=== PATIENT | male | born 1945 | race Caucasian/White ===

== ENCOUNTER → 2018-01-02 07:20 | Outpatient (BNVA) | payer MEDICARE, BC, SELFPAY | PROVIDERS: Referring Provider Internal Medicine; Visit Provider Psychiatry & Neurology Neurology | DX: G56.01 Carpal tunnel syndrome, right upper limb (principal); R40.4 Transient alteration of awareness; G40.909 Epilepsy, unspecified, not intractable, without status epilepticus; R53.83 Other fatigue | CPT/HCPCS: 99205 ==

== ENCOUNTER → 2018-08-14 10:19 | Outpatient (BNVA) | payer MEDICARE, BC, SELFPAY | PROVIDERS: Referring Provider Internal Medicine; Visit Provider Psychiatry & Neurology Neurology | DX: G40.909 Epilepsy, unspecified, not intractable, without status epilepticus (principal); R40.4 Transient alteration of awareness; I10 Essential (primary) hypertension | CPT/HCPCS: 99214 ==

== ENCOUNTER → 2018-09-22 14:10 | Outpatient (BNVA) | payer MEDICARE, BC, SELFPAY | PROVIDERS: Visit Provider Psychiatry & Neurology Neurology | DX: R40.4 Transient alteration of awareness (principal); G40.909 Epilepsy, unspecified, not intractable, without status epilepticus; I10 Essential (primary) hypertension | CPT/HCPCS: 99213 ==

== ENCOUNTER 2018-10-10 13:33 | Outpatient (REF) | payer MEDICARE, BC, SELFPAY ==
[2018-10-10 19:48] LABS: HCT 43.9 % (40.0-50.0); Mean Corp. HGB Concentration 34.2 g/dL (32.0-36.0); Mean Corpuscular Hemoglobin 29.5 pg (27.0-33.0); Mean Corpuscular Volume 86.4 fL (80-95); Mean Platelet Volume 9.9 fL (8.0-11.0); Platelet Count 162 x1000/uL (130-400); RBC 5.08 m/cumm (4.50-6.00); RBC Distribution Width 13.3 % (11.8-14.1); White Blood Cell Count 6.85 k/cumm (4.4-10.8)
[2018-10-10 20:30] LABS: Anion Gap 10.5 mmol/L (3-11); BUN 21 mg/dL (7-18); CO2 24.5 mmol/L (21.0-32.0); CREATININE 1.32 mg/dL (0.70-1.30); Calcium 9.2 mg/dL (8.5-10.1); Chloride 104 mmol/L (98-107); Estimated GFR 53.17 (mL/min/1.73m2); Glucose 107 mg/dL (70-100); Potassium 4.6 mmol/L (3.5-5.1); Sodium 139 mmol/L (136-145)
[2018-10-13 12:55] LABS: Lyme Ab w Rflx to Lyme Confirm Negative
== END 2018-10-10 13:53 ==
LOC: NCHCN 13:33
PROVIDERS: PCP Internal Medicine; Visit Provider Internal Medicine
DX: R40.4 Transient alteration of awareness (principal); I95.1 Orthostatic hypotension
CPT/HCPCS: 80048; 85027; 84443; 86618

== ENCOUNTER → 2018-11-25 11:05 | Outpatient (BNVA) | payer MEDICARE, BC, SELFPAY | PROVIDERS: PCP Internal Medicine; Visit Provider Psychiatry & Neurology Neurology | DX: G40.909 Epilepsy, unspecified, not intractable, without status epilepticus (principal); R40.4 Transient alteration of awareness; I10 Essential (primary) hypertension | CPT/HCPCS: 99213 ==

== ENCOUNTER 2019-01-29 18:38 | Outpatient (REF) | payer MEDICARE, BC, SELFPAY ==
[2019-01-29 19:13] LABS: Albumin 4.2 g/dL (3.4-5.0); Anion Gap 9.3 mmol/L (3-11); BUN 21 mg/dL (7-18); CO2 28.7 mmol/L (21.0-32.0); COMMENT (LAB VIEW ONLY) 119.86 mg/dL; CREATININE 1.16 mg/dL (0.70-1.30); Calcium 9.8 mg/dL (8.5-10.1); Chloride 106 mmol/L (98-107); Glucose 75 mg/dL (70-100); Microalb ug/mg Crea 10.1 ug/mg Cr; PHOSPHORUS 3.9 mg/dL (2.6-4.7); Potassium 4.7 mmol/L (3.5-5.1); Sodium 144 mmol/L (136-145)
== END 2019-01-29 18:58 ==
LOC: NCHCN 18:38
PROVIDERS: PCP Internal Medicine; Visit Provider Internal Medicine
DX: R06.09 Other forms of dyspnea (principal); I95.1 Orthostatic hypotension
CPT/HCPCS: 80069; 82043; 82570

== ENCOUNTER 2020-01-25 19:07 | Outpatient (REF) | payer MEDICARE, BC, SELFPAY ==
[2020-01-25 19:43] LABS: HCT 45.8 % (40.0-50.0); HGB 15.3 g/dL (13.5-17.5); MCH 29.8 pg (27.0-33.0); MCHC 33.4 % (32.0-36.0); MCV 89.1 fL (80-95); MPV 9.9 fL (8.0-11.0); Platelet Count 230 10^3/uL (130-400); RBC 5.14 10^6/uL (4.36-5.78); RDW 12.2 % (11.8-14.1); RDW-SD 39.7 fL; WBC 6.63 10^3/uL (4.4-10.8)
[2020-01-25 20:35] LABS: Anion Gap 8.8 mmol/L (3-11); BUN 18 mg/dL (7-18); CO2 30.2 mmol/L (21.0-32.0); CREATININE 1.16 mg/dL (0.70-1.30); Chloride 105 mmol/L (98-107); Glucose 99 mg/dL (74-106); Potassium 4.2 mmol/L (3.5-5.1); Sodium 144 mmol/L (136-145); TSH 1.17 uIU/mL (0.36-3.74); Vitamin B12 324 pg/mL (193-986)
== END 2020-01-25 19:27 ==
LOC: NCHCN 19:07
PROVIDERS: PCP Internal Medicine; Visit Provider Internal Medicine
DX: R53.83 Other fatigue (principal); R26.89 Other abnormalities of gait and mobility
CPT/HCPCS: 80048; 85027; 82607; 84443

== ENCOUNTER 2020-09-26 17:17 | Outpatient (REF) | payer MEDICARE, BC, SELFPAY ==
[2020-09-26 20:29] LABS: BUN 20 mg/dL (7-18); Chloride 106 mmol/L (98-107); Sodium 143 mmol/L (136-145)
[2020-09-26 20:33] LABS: ALT 27 U/L (16-63); AST 16 U/L (15-37); Albumin 4.4 g/dL (3.4-5.0); Alkaline Phosphatase 73 U/L (46-116); Anion Gap 9.8 mmol/L (3-11); Bilirubin, Total 0.8 mg/dL (0.2-1.0); CO2 27.2 mmol/L (21.0-32.0); CREATININE 1.1 mg/dL (0.70-1.30); Calcium 9.5 mg/dL (8.5-10.1); Glucose 93 mg/dL (74-106); PHENOBARBITAL 6.3 ug/mL (15.0-40.0); Potassium 4.7 mmol/L (3.5-5.1); Total Protein 7.6 g/dL (6.4-8.2)
== END 2020-09-26 17:18 | disposition home or self-care (01) ==
LOC: NCHCN 17:17
PROVIDERS: PCP Internal Medicine; Visit Provider Internal Medicine
DX: R51.9 Headache, unspecified (principal); I95.1 Orthostatic hypotension; Z51.81 Encounter for therapeutic drug level monitoring; Z79.899 Other long term (current) drug therapy
CPT/HCPCS: 80053; 80184

== ENCOUNTER 2021-04-10 11:17 | Outpatient (REF) | payer MEDICARE, BC, SELFPAY ==
[2021-04-10 19:24] LABS: HCT 44.5 % (40.0-50.0); HGB 14.9 g/dL (13.5-17.5); MCH 29.7 pg (27.0-33.0); MCHC 33.5 % (32.0-36.0); MCV 88.8 fL (80-95); MPV 9.6 fL (8.0-11.0); Platelet Count 219 10^3/uL (130-400); RBC 5.01 10^6/uL (4.36-5.78); RDW 12.6 % (11.8-14.1); RDW-SD 41.1 fL
[2021-04-10 20:04] LABS: Anion Gap 4.6 mmol/L (3-11); BUN 18 mg/dL (7-18); C-Reactive Protein 0.08 mg/dL (0.0-0.3); CO2 31.4 mmol/L (21.0-32.0); CREATININE 1.1 mg/dL (0.70-1.30); Calcium 9.1 mg/dL (8.5-10.1); Chloride 103 mmol/L (98-107); Glucose 89 mg/dL (74-106); Potassium 4.3 mmol/L (3.5-5.1); Sodium 139 mmol/L (136-145); TSH 1.38 uIU/mL (0.36-3.74)
== END 2021-04-10 11:18 | disposition home or self-care (01) ==
LOC: NCHCN 11:17
PROVIDERS: PCP Internal Medicine; Visit Provider Internal Medicine
DX: E78.5 Hyperlipidemia, unspecified (principal); G20 Parkinson's disease; M19.011 Primary osteoarthritis, right shoulder
CPT/HCPCS: 80048; 85027; 83655; 84443; 86140

== ENCOUNTER 2021-10-11 16:08 | Outpatient (REF) | payer MEDICARE, BC, SELFPAY ==
[2021-10-11 21:11] LABS: Iron 101 ug/dL (65-175); Total Iron Binding Capacity 323 ug/dL (250-450); Transferrin Sat 31 % (20-55)
[2021-10-11 21:13] LABS: Ferritin 113 ng/mL (26-388)
== END 2021-10-11 16:09 | disposition home or self-care (01) ==
LOC: NCHCN 16:08
PROVIDERS: PCP Internal Medicine; Visit Provider Internal Medicine
DX: M48.061 Spinal stenosis, lumbar region without neurogenic claudication (principal); R51.9 Headache, unspecified; G20 Parkinson's disease; G25.81 Restless legs syndrome
CPT/HCPCS: 82728; 83540; 83550

== ENCOUNTER 2023-03-29 16:13 | Outpatient (REF) | payer MEDICARE, BC, SELFPAY ==
--- OUTSIDE RECORDS SUMMARY | 2023-03-29 16:15 | XMS_ITS | Continuity of Care Document ---
Author Name Unknown Organization [facility] Address [address] [place] [address] Care Team Providers Care Clay Caster Name Role Phone Primeau IPHCBernardo Primary Care Physician Encounter [facility] [id number] Date(s): 07/29/22 - 07/29/22 [facility] [address] [place] [address] Discharge Disposition: Home or Self Care Attending Physician: Erin Mckeon NP Admitting Physician: Erin Mckeon NP Referring Physician: Erin Mckeon BOX TOE MAKER Allergies, Adverse Reactions, Alerts No Known Medication Allergies Substance Reaction Severity Status Seasonal 1 Unknown Active 1hay fever Assessment and Plan Future Appointments Future Scheduled Tests Radiology* MRI Shoulder w/o Contrast Right 07/19/22 Immunizations Given and Recorded Vaccine Date Status Refusal Reason SARS-COV-2 (COVID-19) vaccine, unspecifi 11/07/21 Recorded SARS-COV-2 (COVID-19) vaccine, unspecifi 06/20/20 Recorded SARS-COV-2 (COVID-19) vaccine, unspecifi 05/23/20 Recorded Medications amoxicillin 500 mg oral capsule 2,000 mg = 4 cap, Oral, As Directed, Take one hour before dental appointment Start Date: 12/01/21 Status: Ordered Aspirin Low Dose 81 mg oral delayed release tablet 0 Refill(s) Start Date: 04/03/22 Status: Ordered carbidopa-levodopa 25 mg-100 mg oral tablet 0 Refill(s) Start Date: 07/17/22 Status: Ordered cyanocobalamin 0 Refill(s) Start Date: 07/17/22 Status: Ordered Fish Oil oral capsule 1 cap, Oral, Daily, # 100 cap, 0 Refill(s) Start Date: 07/17/22 Status: Ordered fludrocortisone 0.1 mg oral tablet 30 EA, TAKE 1 TABLET BY MOUTH ONCE DAILY MAY REQUIRE FURTHER TITRATION, 0 Refill(s) Start Date: 04/03/22 Status: Ordered gabapentin 100 mg oral capsule 0 Refill(s) Start Date: 04/03/22 Status: Ordered ketorolac 10 mg oral tablet See Instructions, PRN pain, TAKE 1 TABLET BY MOUTH DAILY (DO NOT TAKE MORE THAN 2 TABLETS PER WEEK FOR HEADACHE PAIN> 5/10) Start Date: 12/01/21 Status: Ordered LORazepam 1 mg oral tablet Start Date: 12/01/21 Status: Ordered Mag-G 500 mg oral tablet 2 tab, Oral, Daily, # 180 tab, 6 Refill(s), Pharmacy: [id number] Start Date: 02/08/22 Status: Ordered magnesium gluconate 500 mg oral tablet 0 Refill(s) Start Date: 04/03/22 Status: Ordered Myrbetriq 50 mg oral tablet, extended release 90 EA, TAKE 1 TABLET BY MOUTH ONCE DAILY, 0 Refill(s) Start Date: 04/03/22 Status: Ordered omeprazole 20 mg oral delayed release capsule 20 mg = 1 cap, Oral, Daily, PRN other (see comment), as needed Start Date: 12/01/21 Status: Ordered PreviDent 5000 Booster 1.1% topical paste Topical, every night at bedtime, [place] teeth, swish for 30 seconds, then spit out Start Date: 12/01/21 Status: Ordered topiramate 25 mg oral tablet 60 EA, TAKE 1 TABLET BY MOUTH TWICE DAILY, 0 Refill(s) Start Date: 04/03/22 Status: Ordered Tylenol PRN other (see comment), as needed Start Date: 12/01/21 Status: Ordered Vitamin B-12 500 mcg oral tablet 0 Refill(s) Start Date: 07/17/22 Status: Ordered Problem List Condition Confirmation Course Effective Dates Status H ealth Status Informant Prophylactic antibiotic Confirmed Active Olecranon bursitis, left elbow Confirmed Active Carpal tunnel syndrome Confirmed Active Cervical spondylosis 1 Confirmed Active Chest pain Confirmed Active Depressed Confirmed Active Disturbance in speech Confirmed Active Dyspnea on exertion Confirmed Active Gastroesophageal reflux disease Confirmed Active Generalized epilepsy Confirmed Active History of BPH Confirmed Active Headache Confirmed Active Hemorrhoids Confirmed Active History of hypotension Confirmed Active History of right hip replacement Confirmed Active Hyperlipidemia Confirmed Active Hypersomnia Confirmed Active Hypertension Confirmed Active Lesion of ulnar nerve Confirmed Active Carcinoma of skin Confirmed Active Obstructive sleep apnea syndrome Confirmed Active Orthostatic hypotension Confirmed Active Osteoarthritis Confirmed Active Palpitations Confirmed Active Panic disorder Confirmed Active Parkinson's disease Confirmed Active PLMD (periodic limb movement disorder) Confirmed Active Right shoulder pain Confirmed Active Skin tag Confirmed Active Spinal stenosis, lumbar Confirmed Active Giant cell arteritis Confirmed Active 1Cervical spondylosis with radiculopathy Procedures Procedure Date Related Diagnosis Body Site Status Temporal artery biopsy 1 04/05/22 Completed Hip replacement 2 04/14/09 Complet ed Orthopedic surgery 3 Comp leted Tonsillectomy Completed 1Temporal Artery Biopsy, Bilateral 2Right 3right IP joint fusion Social History Social History Type Response Tobacco Never tobacco user T obacco Use:. Sex Male Patient Care team information Care Team Personnel Name: Bernardo Brewer MD Position: No Access Member Role: Primary Care Physician Address: Address: [id number] [place] [address] Care Team Related Persons Name: LINDA VALENCIA Address: Home
--- OUTSIDE RECORDS SUMMARY | 2023-03-29 16:16 | XMS_ITS | Continuity of Care Document ---
Author Name Unknown Organization [facility] Address [address] [place] [address] Care Team Providers Care Tunnel Heading Supervisor Name Role Phone Primeau IPHC, Bernardo Le Primary Care Physician Encounter [facility] Date(s): 08/29/22 - 08/29/22 [facility] [address] [place] [address] Encounter Diagnosis PLMD (periodic limb movement disorder)(Discharge Diagnosis) - 08/29/22 Obstructive sleep apnea syndrome(Discharge Diagnosis) - 08/29/22 Discharge Disposition: Home or Self Care Attending Physician: Erin Mckeon TIE LOADER Allergies, Adverse Reactions, Alerts No Known Medication Allergies Substance Reaction Severity Status Seasonal 1 Unknown Active 1hay fever Assessment and Plan Future Appointments Future Scheduled Tests Radiology* MRI Shoulder w/o Contrast Right 07/19/22 Functional Status 08/29/22 Other exposure to Infectious Disease Non e Immunizations Given and Recorded Vaccine Date Status [...] 0 Refill(s) Start Date: 04/03/22 Status: Ordered cyanocobalamin 0 Refill(s) Start Date: [...] 0 Refill(s) Start Date: 04/03/22 Status: Ordered Gemtesa 75 mg oral tablet 75 mg = 1 tab, Oral, Daily, # 28 tab, 0 Refill(s), samples given to patient (Rx) Start Date: 08/29/22 Stop Date: 09/26/22 Status: Ordered ketorolac 10 mg oral tablet See Instructions, PRN pain, TAKE 1 TABLET BY MOUTH DAILY (DO NOT TAKE MORE THAN 2 TABLETS PER WEEK FOR HEADACHE PAIN> 5/10) Start Date: 12/01/21 Status: Ordered LORazepam 1 mg oral tablet Start Date: 12/01/21 Status: Ordered Mag-G 500 mg oral tablet 2 tab, Oral, Daily, # 180 tab, 6 Refill(s), Pharmacy: [id number] Start Date: 02/08/22 Status: Ordered magnesium gluconate 500 mg oral tablet 0 Refill(s) Start Date: 04/03/22 Status: Ordered melatonin 3 mg oral tablet 3 mg = 1 tab, Oral, every day at bedtime, # 60 tab, 0 Refill(s), Pharmacy: [id number], 180, cm, 03/27/22 11:48:00 EST, Height/Length Dosing, 81, kg, 03/27/22 11:48:00 EST, Weight Dosing Start Date: 08/29/22 Status: Ordered Myrbetriq 50 mg oral tablet, extended release 90 EA, TAKE 1 TABLET BY MOUTH ONCE DAILY, 0 Refill(s) Start Date: 04/03/22 Status: Ordered omeprazole 20 mg oral delayed release capsule 20 mg = 1 cap, Oral, Daily, PRN other (see comment), as needed Start Date: 12/01/21 Status: Ordered PreviDent 5000 Booster 1.1% topical paste Topical, every night at bedtime, [place] teeth, swish for 30 seconds, then spit out Start Date: 12/01/21 Status: Ordered selegiline 5 mg oral tablet 5 mg = 1 tab, Oral, BID, # 180 tab, 0 Refill(s) Start Date: 08/29/22 Status: Ordered topiramate 25 mg oral tablet [...] 1 04/05/22 Completed Hip replacement 2 04/14/09 [facility] ed Orthopedic surgery 3 Comp leted Tonsillectomy Completed 1Temporal Artery Biopsy, Bilateral 2Right 3right IP joint fusion Vital Signs Most recent to oldest [Reference Range]: 1 Peripheral Pulse Rate [60-100 bpm] 75 bp m (08/29/22 8:01 AM) Blood Pressure [90-140/60-90 mmHg] 161/8 8mmHg *HI* (08/29/22 8:01 AM) Weight 79.38 kg (08/29/22 8:01 AM) Weight Measured (lbs) 175.003 lb (08/29/22 8:01 AM) Height 175 cm (08/29/22 8:01 AM) Height/Length Measured (inches) 68.9 inc h (08/29/22 8:01 AM) BSA Measured 1.96 m2 (08/29/22 8:01 AM) Body Mass Index 25.92 kg/m2 (08/29/22 8:01 AM) Social History Social History Type Response Tobacco Never tobacco user T obacco Use:. Sex Male Progress note * Benny Collado: PERFORM Event Display: Progress Note - Physician Authored Date: [id number] Patient Care team information Care Team Personnel Name: Bernardo Brewer MD Position: No Access Member Role: Primary Care Physician Address: Address: [address] Care Team Related Persons Name: LINDA VALENCIA Address: Home
--- OUTSIDE RECORDS SUMMARY | 2023-03-29 16:16 | XMS_ITS | Continuity of Care Document ---
Author Name Unknown Organization [facility] or Sleep Disorders Address [address] [place] [address] Care Team Providers Care [employer] Practitioner Name Role Phone [facility], Bernardo Le Primary Care Physician [facility] Date[facility] 10/04/22 - 10/04/22 [facility] [address] [place] [address] Encounter Diagnosis Obstructive sleep apnea syndrome(Discharge Diagnosis) - 10/04/22 Discharge Disposition: Home or Self Care Attending Physician: Erin Mckeon [employer] Allergies, Adverse Reactions, Alerts No Known Medication Allergies Substance Reaction Severity Status Seasonal 1 Unknown Active 1hay fever Assessment and Plan Future Appointments Future Scheduled Tests Radiology* MRI Shoulder w/o Contrast Right 07/19/22 Functional Status 10/04/22 Other exposure to Infectious Disease Non e [...] Date: 08/29/22 Stop Date: 09/26/22 Status: Ordered Gemtesa 75 mg oral tablet 75 mg = 1 tab, Oral, Daily, # 90 tab, 3 Refill(s), Pharmacy: [id number], 180, cm, 03/27/22 11:48:00 EST, Height/Length Dosing, 81, kg, 03/27/22 11:48:00 EST, Weight Dosing Start Date: 09/19/22 Stop Date: 09/14/23 Status: Ordered ketorolac 10 mg oral tablet See Instructions, PRN pain, TAKE 1 TABLET BY MOUTH DAILY (DO NOT TAKE MORE THAN 2 TABLETS PER WEEK FOR HEADACHE PAIN> 5/10) Start Date: 12/01/21 Status: Ordered LORazepam 1 mg oral tablet Start Date: 12/01/21 Status: Ordered Mag-G 500 mg oral tablet 2 tab, Oral, Daily, # 180 tab, 6 Refill(s), Pharmacy: [id number] Start Date: 02/08/22 Status: Ordered magnesium gluconate 500 mg oral tablet 0 Refill(s) Start Date: 04/03/22 Status: Ordered melatonin 3 mg oral tablet 3 mg = 1 tab, Oral, every day at bedtime, # 60 tab, 0 Refill(s), Pharmacy: [id number], 180, cm, 03/27/22 11:48:00 EST, [...] topical paste Topical, every night at bedtime, [place] teeth, swish for 30 seconds, then spit [...] 1 04/05/22 Completed Hip replacement 2 04/14/09 [facility] ed Orthopedic surgery 3 Comp leted Tonsillectomy Completed 1Temporal Artery Biopsy, Bilateral 2Right 3right IP joint fusion Vital Signs Most recent to oldest [Reference Range]: 1 Peripheral Pulse Rate [60-100 bpm] 97 bp m (10/04/22 8:57 AM) Blood Pressure [90-140/60-90 mmHg] 152/8 7mmHg *HI* (10/04/22 8:57 AM) Weight 78.93 kg (10/04/22 8:57 AM) Weight Measured (lbs) 174.011 lb (6/22/23 8:57 AM) Height 180 cm (10/04/22 8:57 AM) Height/Length Measured (inches) 70.87 in (10/04/22 8:57 AM) BSA Measured 1.99 m2 (10/04/22 8:57 AM) Body Mass Index 24.36 kg/m2 (10/04/22 8:57 AM) Social History Social History Type Response Tobacco Former tobacco user Tobacco Use:. Sex Male Physician Outpatient Note * Erin Mckeon [employer]: PERFORM Event Display: Office Clinic Note Physician Authored Date: [id number] JIM GONZALEZ :1945 Age:76 years Sex:Male Visit Date:10/04/2022 Primary Care Physician: Simone PANCHAL, Bernardo Le MD Chief Complaint cpap compliance History of Present Illness 76 years??male??here for compliance ?? TODAY: He thinks his mask cushion may be over a month old. Maybe a few months overdue for replacement. He does not leave his machine running when he gets up to go void. Sometimes his mask does move around his face but rarely. ?? He started taking 3mg melatonin at night. He is getting up less at night with the melatonin + starting a new med recently for his overactive bladder. ?? He will be seeing his neurologist again in November. He feels he has had more brain fog, tremors, and fatigue with restarting his Levidopa rx. Review of Systems A 10-point REVIEW OF SYSTEM was obtained and reviewed, includes CONSTITUTIONAL, EYES, NOSE, THROAT,RESPIRATORY, HEART, GASTROINTESTINAL, UROLOGIC, MUSCULOSKELETAL, PSYCHIATRY, SKIN systems. Pertinent symptoms are discussed in history, otherwise negative. Physical Exam Vitals & Measurements HR:??97??(Peripheral)?? BP:??152/87?? SpO2:??95%?? HT:??180??cm?? WT:??78.93??kg?? BMI:??24.36?? BSA:??1.99?? General:??well appearing, appearing stated age, no acute distress,??normal??build HEENT: atraumatic skull, anicteric RESPIRATORY: quiet respiration, able to speak in full sentences without dyspnea, no accessory muscle use SKIN: no facial skin rash, no facial skin lesions PSYCHIATRIC: well groomed, fluent speech, good insight, linear thought process, good eye contact,balanced??affect NEUROLOGIC: alert, oriented, symmetric facial expression Clinic Assessment/Plan 1.??Obstructive sleep apnea syndrome??G47.33 Jim Gonzalez is a pleasant 76 year old male here for CPAP compliance. Download data reviewed and discussed with the patient. He has good compliance with an excellent reduction in AHI, tx AHI 1.4/hr on fixed CPAP 5cm H20. Will cont current pressures. ?? As previously recommended, he has started taking 3mg of melatonin at bedtime. He is sleeping more soundly through the night and has fewer nocturnal awakenings. In addition to the melatonin, he also started taking a medication for his overactive bladder, so his improved sleep is likely due to the combination of medications. He endorses feeling his sleep quality has improved, no longer feeling crummy in the mornings. ?? Discussed replacing his PAP supplies regularly, as he thinks his current mask cushion may be a few months old and his data reveals he does have a moderate air leak. Discussed the importance of propermask seal for treatment of his KARLI and overall mask hygiene. Will ensure all future supplies come from [facility]. ?? Plan for close interval follow up in 3 months. I provided greater than??30??minutes in the care of this patient, more than half the time was spentin [id number] counseling. ?with comorbidities of cervical spondylosis with radiculopathy, GERD, nocturnal generalized epilepsy (only ever occurred in past during his sleep, never when awake, under good control with Tegretol, no seizures for > 30 years), CAD. ? Clinical Data Reviewed: [place] Sleepiness Scale: 10/06 ?? Machine Download Data:??Resmed AirSense 10 Auto CPAP?? PAP Settings: ??CPAP??5?? CmH2O Date Range:?09/28/22 - 10/03/22 (trouble obtaining 30 days data) Days with Usage >=4 hours: ??67% Avg Usage per Day Used: ??5hr 17min Leak:??Moderate? Avg Treatment ??AHI: ??1.4/hr ?? Sleep Clinical Timeline:?? Seen on 12/23/17 for sleep consultation at kind request of Dr Antoine Ram, noted for loud snoring, nocturia 2 to 3 per night, crowded upper airway on exam, morning headaches, and excessive daytime sleepiness with ESS 13/24 despite sleeping 8.5 hours per night. Also noted for muscle tightening/cramping in upper arm and constipation. ?? Diagnostic Polysomnogram on 01/20/18 (wt 196 lbs / bmi 28) showed Overall Mild Obstructive Sleep Apnea, that is extremely severe during brief period of supine position sleep observed. There is evidence of Increased Upper Airway Resistance flow pattern in between scored events. Overall AHI: 7.4/hr; Overall RDI: 10.8/hr; REM AHI: 5.2/hr; Supine AHI: 67/hr; Right Lateral AHI:3 /hr; Left Lateral AHI: 2/hr; Prone AHI: N/A/hr. Mean SpO2: 93% and Marcos SpO2: 90% on Room Air; 0 Consecutive Minutes spentwith SpO2 less than 88% on Room Air. Severity may be underestimated due to minimal supine position sleep seen. Extremely Severe Periodic Limb Movement Disorder, without significant arousals. PLM 71/hr PLMa 0/hr. arousal index 10/hr. ?? Visit on 03/03/18, we went over oral appliance, cpap and positional therapy as treatment options and patient elected to go wtih simplest option first (latter). He also did not perceive any leg symptoms and prefered not to be treated. ?? Repeat Diagnostic Polysomnogram wearing positional therapy device on 02/25/20 (wt 188 lbs/bmi 27) showed: 1. Patient used positional therapy device to avoid supine sleep successfully throughout the night, showing residual borderline Mild Obstructive Sleep Apnea associated with sleep fragmentation. 2. Overall AHI: 0.7/hr; Overall RDI: 5.2/hr; REM AHI: 0.0/hr; Supine AHI: N/A/hr; Right Lateral AHI:0 /hr; Left Lateral AHI: 2/hr; Prone AHI: N/A/hr. 3. Mean SpO2: 92% and Marcos SpO2: 89% on Room Air; 0.0 minutes spent with SpO2 less than or equal to 88% on Room Air. 4. Severe Periodic Limb Movement Disorder with significant arousals. PLM index 44.7/hr. PLM arousalindex 6.8/hr. Patient???s bilateral leg EMGs showed frequent muscle fasciculation. 5. Unable to adequately evaluate for REM Behavioral Disorder, due to minimal REM sleep time of 9 minutes. However, frequent leg movements were noted even during short period of REM sleep, which also led to arousals. Chin EMG tone was difficult to evaluate due to this. The persistence of PLMs into REM sleep suggest lack of appropriate muscle atonia. ? 07/20/2021. f/u auto cpap 5-9 cm H20, nasal pillows. ropinirole 0.5-1 mg 2 tabs nightly for RLS. f/u with neurology for further eval Parkinsons ?? 12/06/2021.?? auto CPAP 5 to 9 cm, ResMed machine via [facility], was using nasal pillows. he is not having any issues with his mask or pap pressures. He continues to have hypersomnia with only slight improvement with CPAP. He has a hx of seizures which he reports have been under good control since the . He was diagnosed with possible Parkinson's disease 1-1/2 years ago and was started on carbidopa/levodopa. He did meet with neurology in [place] and has a follow up MRI schedule next month.?? His ropinirole was discontinued since our last office visit in July by his PCP??and he was started on gabapentin??and is now taking gabapentin 300 mg twice daily.? 04/18/2022. Cont auto CPAP 5 to 9 cm, increase compliance and try other mask fits. Cont to c/o hypersomnia. D/C'ed carbidopa/levodopa and will discuss with PCP other causes of sleepiness in May. Cont Gabapentin, vit D, and magnesium; RLS well controlled. ?07/29/2022:??CPAP Titration Study. Wt.: 171.96 lbs. ??BMI = 24.67 kg/m2.?IMPRESSION: 1.??CPAP titration with RBD montage for supine-related mild Obstructive Sleep Apnea was marked by severe fragmentation with elevated arousal index and reduced sleep efficiency 56% with prolonged WASO.?? 2.??Optimal pressure appeared to be CPAP 5 cmH2O which resolved significant apneas, hypopneas, snoring and desaturations including during supine REM sleep. Adequate oxygenation was maintained on tested pressures. Further titration from CPAP 5 to 7cmH2O did not seem to have provided additional benefit and may have led to the development of treatment emergent central apneas. ?? 3.??Severely elevated Periodic Limb Movements Index including excessive transient muscle activity in REM suggesting REM sleep without atonia similar to observations noted in previous PSGs. ?? 4.??Patient used a Resmed Airfit P10 nasal pillow with large inserts.?RECOMMENDATIONS: 1.??Patient should be continued on CPAP therapy with mask of choice, heated humidification and ramp. The pressure should be set at 5 cmH2O. Interval follow up with (download/nocturnal oximetry) to confirm adequacy of this setting is recommended. 2.??Mask refit session via patient???s DME Company.? 08/29/2022: Adjusted pressures remotely to TMS for fixed CPAP 5cm H20. Encourage pt to increase complaince. ?? 10/04/2022: Cont current pressure, working well to treat his KARLI. replace mask cushion d/t significant air leak, prefers supplies thru [facility]. ?? Current Mask: ?? Resmed Airfit P10 nasal pillow with large inserts.? DME: [facility] ? Today's Assessment and Plan: See above ?? Follow up: 3 months or sooner if needed. ?? Remote Scribed by Carl Ryder Problem List/Past Medical History Ongoing Carcinoma of skin Carpal tunnel syndrome Cervical spondylosis Chest pain Depressed Disturbance in speech Dyspnea on exertion Gastroesophageal reflux disease Generalized epilepsy Giant cell arteritis Headache Hemorrhoids History of BPH History of hypotension History of right hip replacement Hyperlipidemia Hypersomnia Hypertension Lesion of ulnar nerve Obstructive sleep apnea syndrome Olecranon bursitis, left elbow Orthostatic hypotension Osteoarthritis Palpitations Panic disorder Parkinson's disease PLMD (periodic limb movement disorder) Prophylactic antibiotic Right shoulder pain Skin tag Spinal stenosis, lumbar Historical Carpal tunnel syndrome of right wrist Procedure/Surgical History ???Temporal artery biopsy (04/06/2022)???Hip replacement (04/15/2009)???Orthopedic surgery???Tonsillectomy Medications What How Much When Why Instructions Unchanged acetaminophen (Tylenol) As needed for other (see comment) as needed Contact prescribing physician if questions or concerns ?? Unchanged amoxicillin (amoxicillin 500 mg oral capsule) 4 Capsules Oral (given by mouth) As Directed Take one hour before dental appointment Contact prescribing physician if questions or concerns ?? Unchanged aspirin (Aspirin Low Dose 81 mg oral delayed release tablet) Contact prescribing physician if questions or concerns ?? Unchanged cyanocobalamin Contact prescribing physician if questions or concerns ?? Unchanged cyanocobalamin (Vitamin B-12 500 mcg oral tablet) Contact prescribing physician if questions or concerns ?? Unchanged fludrocortisone (fludrocortisone 0.1 mg oral tablet) 30 EA, TAKE 1 TABLET BY MOUTH ONCE DAILY MAY REQUIRE FURTHER TITRATION Contact prescribing physician if questions or concerns ?? Unchanged fluoride topical (PreviDent 5000 Booster 1.1% topical paste) Topical (on the skin) Every night at bedtime [place] teeth, swish for 30 seconds, then spit out Contact prescribing physician if questions or concerns ?? Unchanged gabapentin (gabapentin 100 mg oral capsule) Contact prescribing physician if questions or concerns ?? Unchanged ketorolac (ketorolac 10 mg oral tablet) See instructions TAKE 1 TABLET BY MOUTH DAILY (DO NOT TAKE MORE THAN 2 TABLETS PER WEEK FOR HEADACHE PAIN> 5/ 10), As needed for pain Contact prescribing physician if questions or concerns ?? Unchanged LORazepam (LORazepam 1 mg oral tablet) Contact prescribing physician if questions or concerns ?? Unchanged magnesium gluconate (Mag-G 500 mg oral tablet) 2 tab Oral (given by mouth) Every day Contact prescribing physician if questions or concerns ?? Unchanged magnesium gluconate (magnesium gluconate 500 mg oral tablet) Contact prescribing physician if questions or concerns ?? Unchanged melatonin (melatonin 3 mg oral tablet) 1 tab Oral (given by mouth) Every night at bedtime Contact prescribing physician if questions or concerns ?? Unchanged mirabegron (Myrbetriq 50 mg oral tablet, extended release) 90 EA, TAKE 1 TABLET BY MOUTH ONCE DAILY Contact prescribing physician if questions or concerns ?? Unchanged omega-3 polyunsaturated fatty acids (Fish Oil oral capsule) 1 Capsules Oral (given by mouth) Every day Contact prescribing physician if questions or concerns ?? Unchanged omeprazole (omeprazole 20 mg oral delayed release capsule) 1 Capsules Oral (given by mouth) Every day as needed for other (see comment) as needed Contact prescribing physician if questions or concerns ?? Unchanged selegiline (selegiline 5 mg oral tablet) 1 tab Oral (given by mouth) 2 times a day Contact prescribing physician if questions or concerns ?? Unchanged topiramate (topiramate 25 mg oral tablet) 60 EA, TAKE 1 TABLET BY MOUTH TWICE DAILY Contact prescribing physician if questions or concerns ?? Unchanged vibegron (Gemtesa 75 mg oral tablet) 1 tab Oral (given by mouth) Every day Nocturia Overactive bladder Duration: 28 Days Contact prescribing physician if questions or concerns ?? Unchanged vibegron (Gemtesa 75 mg oral tablet) 1 tab Oral (given by mouth) Every day Overactive bladder Duration: 90 Days Contact prescribing physician if questions or concerns ?? Allergies Seasonal No Known Medication Allergies Social History Alcohol Never Electronic Cigarette/Vaping Electronic Cigarette Use: Never. Home/Environment Lives with Spouse. Living situation: Home/Independent. Nutrition/Health Caffeine intake amount: 1 c coffee a day. Substance Use Never Tobacco Former tobacco user Tobacco Use:. Immunizations Vaccine Date Status SARS-COV-2 (COVID-19) vaccine, unspecifi 11/07/2021 Recorded SARS-COV-2 (COVID-19) vaccine, unspecifi 06/20/2020 Recorded SARS-COV-2 (COVID-19) vaccine, unspecifi 05/23/2020 Recorded Electronically Signed on 10/04/22 09:23 AM Erin Mckeon [employer] Electronically Signed on 10/04/22 09:21 AM Carl Ryder Patient Care team information Care Team Personnel Name: Bernardo Brewer MD Position: No Access Member Role: Informed Provider Address: Address: [address] [address] Care Team Related Persons Name: LINDA GONZALEZ Address: Home [address] [place] [address], [id number]
--- OUTSIDE RECORDS SUMMARY | 2023-03-29 16:16 | XMS_ITS | Continuity of Care Document ---
Author Name Unknown Organization [facility] Address [address] [place] [address] Care Team Providers Care Construction Scheduler Name Role Phone Primeau IPHCBernardo Primary Care Physician [facility] Date(s): 06/28/22 - 10/31/[address] [address] Encounter Diagnosis Parkinson's disease(Final) - Dysphonia(Final) - Discharge Disposition: Home or Self Care Attending Physician: Aida Zaragoza MD Admitting Physician: Aida Zaragoza MD Referring Physician: Aida Zaragoza MD Allergies, Adverse Reactions, Alerts No Known Medication [...] Ordered carbidopa-levodopa 25 mg-100 mg oral tablet 1 tab, Oral, TID, # 90 tab, 0 Refill(s) Start Date: 10/09/22 Status: Ordered cyanocobalamin 0 Refill(s) Start Date: [...] Daily, # 90 tab, 3 Refill(s), Pharmacy: [place] [id number], 180, cm, 03/27/22 11:48:00 EST, Height/Length Dosing, [...] Daily, # 180 tab, 6 Refill(s), Pharmacy: [facility] Start Date: 02/08/22 Status: Ordered magnesium gluconate 500 mg oral tablet 0 Refill(s) Start Date: 04/03/22 Status: Ordered melatonin 3 mg oral tablet 3 mg = 1 tab, Oral, every day at bedtime, # 60 tab, 0 Refill(s), Pharmacy: [place] [id number], 180, cm, 03/27/22 11:48:00 EST, Height/Length Dosing, [...] topical paste Topical, every night at bedtime, [place] teeth, swish for 30 seconds, then spit [...] 0 Refill(s) Start Date: 07/17/22 Status: Ordered Vitamin D3 Daily, 0 Refill(s) Start Date: 10/09/22 Status: Ordered Problem List Condition Confirmation Course Effective Dates Status H ealth Status Informant Prophylactic antibiotic Confirmed Active Olecranon bursitis, left elbow Confirmed Active Carpal tunnel syndrome Confirmed Active Cervical spondylosis 1 Confirmed Active Chest pain Confirmed Active Depressed Confirmed Active Disturbance in speech Confirmed Active Dyspnea on exertion Confirmed Active Gastroesophageal reflux disease Confirmed Active Generalized epilepsy 2 Confirmed Active History of BPH Confirmed Active Headache Confirmed Active Hemorrhoids Confirmed Active History of hypotension Confirmed Active History of right hip replacement Confirmed Active Hyperlipidemia Confirmed Active Hypersomnia Confirmed Active Hypertension Confirmed Active Lesion of ulnar nerve Confirmed Active Low back pain Confirmed Active Carcinoma of skin Confirmed Active Obstructive sleep apnea syndrome 3 Confirmed Active Orthostatic hypotension Confirmed Active Osteoarthritis Confirmed Active Palpitations Confirmed Active Panic disorder Confirmed Active Parkinson's disease Confirmed Active PLMD (periodic limb movement disorder) Confirmed Active Right shoulder pain Confirmed Active Skin tag Confirmed Active Spinal stenosis, lumbar Confirmed Active Giant cell arteritis Confirmed Active 1Cervical spondylosis with radiculopathy 2From 07-26-2021 visit: 03/03/18: well controlled, no seizures for > 30 years, followed by Dr Ram, recently switched to Tegretol. Patient notes he only ever got these in sleep, which does raise possibility he may have had sleep apnea for many years, even prior to his recent 18 lb weight gain. physical exam showing narrow palate and small mouth also support this possibility. 05/13/18: with help of Dr Nichols, he got off tegretol and carbamazpine with improvemetn in daytime alertness, and no seizures returning so far. he will also be seeing Dr Ram later nxt month 11/10/18: seeing Dr Mcdonough at [facility] and she started him on gabapentin instead of the other meds 02/14/2021: Patient just got off the phone with Dr. Garcia's office that was over hearing the conversation, he ran out of phenobarbital and Dr. Vo is not in the office. I offered to give him 3-day supply of phenobarbital so that he would not go into withdrawal, and he will be getting a long-term refill from Dr. Vo when he returns. Phenobarbital 30 mg 2 tabs nightly x3 days sent to [facility] pharmacy 07/20/2021. patient would like to come off of his phenobarbital, he plans to discuss with neurology [facility] 07-26-2021 visit: 02/13/2021: Patient is using and benefiting from CPAP 5 to 15 cm, however when he tried using the nasal mask, could not tolerate such high pressures and felt it was too much resistant to breathe against. We decided it was better for him to be on the full facemask AirFit F20 large. Of note he had to pay for the CPAP [id number] as insurance did not cover it based on his most recent sleep study. He will alternate between CPAP versus positional therapy device, I think both are adequate, though CPAP may work slightly better based on the lower AHI, average ~1/h. He did try the CPAP with a nasal mask in person today and even at the lower pressures he could not tolerate it. We will decrease pressure to APAP 5 to 9 cm 07/20/2021. Tolerating auto CPAP 5 to 9 cmH2O, nasal pillows most comfortable for him. He has excellent compliance and reduction in AHI 1.5/HR. he has mild mask leakage that is not bothersome to the patient. Continue continue using CPAP 5 to 9 cm H2O with nasal pillows. He will replace his supplies as recommended and contact us if he has any questions or concerns. Procedures Procedure Date Related Diagnosis Body Site Status Temporal artery biopsy 1 04/05/22 Completed Hip replacement 2 04/14/09 [facility] ed Orthopedic surgery 3 Comp leted Tonsillectomy Completed 1Temporal Artery Biopsy, Bilateral 2Right 3right IP joint fusion Social History Social History Type Response Tobacco Former tobacco user Tobacco Use:. 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 Pt pleasant and cooperative. Today was pt's last session. *Objectives/Outcomes: During today's session: -COMMERCIAL LINES ACCOUNT ASSISTANT reviewed SPEAKOUT!/Parkinson's Project website. Provided pt with a link to e-resources -Discussed and showed pt how to access daily online tx/weekly sing-along groups. -Informed pt of [employer]d group at [facility]. he is not interested at this time, but will reach out if he changes his mind. -COMMERCIAL LINES ACCOUNT ASSISTANT and pt engaged in a cognitive exercise speaking with intent to warm up for conversation with unfamiliar partner -Pt engaged in a spontaneous conversation with unfamiliar partner for greater than 5 minutes using intent. -Any additional questions were discussed. -Pt is encouraged to contact PCP if new concerns arise or if he is interested in returning for tx. *Patient Education: ??See education provided above. Pt sent home with a handout with a link to e-resource and information on remote groups. *COMMERCIAL LINES ACCOUNT ASSISTANT??Assessment: Pt is a pleasant 76 year old man who has been attending speech tx for 9 sessions. COMMERCIAL LINES ACCOUNT ASSISTANT educated pt on and led pt through [employer] program, given his diagnosis of Parkinson's Disease and overall concerns with his voice quality. This program recommends tx 3x/week with COMMERCIAL LINES ACCOUNT ASSISTANT, however pt unable to committo that given other medical appointments. However, pt has been hardworking and independently completes home programming 2x/day. Pt has shown great understanding of this program and has completed all chapters. Pt to be discharged today as he has met all goals. Pt has demonstrated the ability to speak with intent across familiar and unfamiliar persons. Recommend pt continue to use program for dailypractice at home. Return to PCP if new concerns arise. Discharge today. Certification Dates (Medicare Only) From To ??4/21/23 ??11/01/22 *Short Term Goals: 1. ??Pt will coordinate vocal and articulatory subsystems in hierarchical speech tasks by producingsounds with intention with maximum COMMERCIAL LINES ACCOUNT ASSISTANT support across 3 sessions by 2 weeks in order to speak with intent for functional communication needs. Goal met 09/27/22 2. Pt will coordinate vocal and articulatory subsystems in hierarchical speech tasks by producing sounds with intention with minimum to no support from COMMERCIAL LINES ACCOUNT ASSISTANT across 2 sessions by 10 wees in order to speak with intent for functional communication needs. Goal met 10/17/22 3. Pt will read phrases, sentences, and/or paragraphs with intention, yielding improved vocal quality, loudness, articulatory precision and endurance while maintaining a minimum of 70 dB with no COMMERCIAL LINES ACCOUNT ASSISTANT support across 2 sessions by 10 weeks in order to speak with intent for functional communication needs. Goal met 10/17/22 4. Pt will generalize intentional speech to cognitive-linguistic exercises and conversational speech with improved vocal quality, loudness, articulatory precision and endurance while maintaining a minimum of 70 dB with no COMMERCIAL LINES ACCOUNT ASSISTANT support across 2 sessions by 11 weeks in order to speak with intent for functional communication needs. Goal met 10/26/22 *Day Care Teacher Goals: 1. Pt will engage in a 5-10 minute spontaneous conversation while using intent independently or with appropriate supports by 12 weeks. Goal met 10/31/22 *Reason for Discharge: All goals are met. No further tx needed at this time *Plan: ??Discharge from therapy today *Procedure Documentation: CPT 26100: Treatment of Language, Voice:?40?? 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 Pt pleasant and cooperative. *Objectives/Outcomes: Instructed pt to warm up voice with SPEAKOUT! warm up page -May/Me/My/Herminio/Mooe -Sustain ah -Glides 4. Reviewed topics to discuss with unfamiliar partner. Practice prior to conservations with unfamiliar partners. Unfamiliar partner 1 - pace was good, volume was good, articulating well enough to be understood Unfamiliar partner 2 - volume was appropriate for this setting and consistent. Average dB - 70-72 Goal met 2 of 2 *Patient Education: ??Reviewed speaking with intent in conversational settings. Discussed plan for next weeks session (see below). *COMMERCIAL LINES ACCOUNT ASSISTANT??Assessment: One more session next week to review completed tx and SPEAKOUT! program, education on any further recommendations/practice that can be continued at home. Have pt engage in 1 more conversation with unfamiliar partner next week. Pt to be discharged next session. Certification Dates (Medicare Only) From To ??08/03/22 ??11/01/22 *Short Term Goals: 1. ??Pt will coordinate vocal and articulatory subsystems in hierarchical speech tasks by producingsounds with intention with maximum COMMERCIAL LINES ACCOUNT ASSISTANT support across 3 sessions by 2 weeks in order to speak with intent for functional communication needs. Goal met 09/27/22 2. Pt will coordinate vocal and articulatory subsystems in hierarchical speech tasks by producing sounds with intention with minimum to no support from COMMERCIAL LINES ACCOUNT ASSISTANT across 2 sessions by 10 wees in order to speak with intent for functional communication needs. Goal met 10/17/22 3. Pt will read phrases, sentences, and/or paragraphs with intention, yielding improved vocal quality, loudness, articulatory precision and endurance while maintaining a minimum of 70 dB with no COMMERCIAL LINES ACCOUNT ASSISTANT support across 2 sessions by 10 weeks in order to speak with intent for functional communication needs. Goal met 10/17/22 4. Pt will generalize intentional speech to cognitive-linguistic exercises and conversational speech with improved vocal quality, loudness, articulatory precision and endurance while maintaining a minimum of 70 dB with no COMMERCIAL LINES ACCOUNT ASSISTANT support across 2 sessions by 11 weeks in order to speak with intent for functional communication needs. Goal met 10/26/22 *Intermediate Goals: 1. Pt will engage in a 5-10 minute spontaneous conversation while using intent independently or with appropriate supports by 12 weeks. *Plan: ??Continue tx 1x/week *Procedure Documentation: CPT 42707: Treatment of Language, Voice:?30?? minutes Treatment of speech, language, voice, communication, and/or auditory processing disorder; individual (including speech-reading and lip-reading) *Total Time: 30 minutes *Time In: 1:45 pm *Time Out: 1:15 pm Electronically Signed on 10/26/22 02:20 PM Michelle Valladares MS CCC-COMMERCIAL LINES ACCOUNT ASSISTANT * Michelle Valladares MS CCC-COMMERCIAL LINES ACCOUNT ASSISTANT: PERFORM, MODIFY, MODIFY, MODIFY, MODIFY, MODIFY, MODIFY, MODIFY Event Display: Speech Therapy Progress Note Authored Date: [id number] *Visit Type: Treatment Visit *Referring??Diagnosis: G20 Parkinson's Disease *Therapy Diagnosis: 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 Pt pleasant and cooperative *Objectives/Outcomes: Reviewing home programming Lesson 20 completed today Task Average dB Cueing Notes Warm Up 75 [employer] with intent Independent hydrating Sustain Ah 86 [employer] with intent Independent hydrating Glides 90 [employer] with intent Independent hydrating Slightly loud Adjusting to a comfortable volume following COMMERCIAL LINES ACCOUNT ASSISTANT model and visualizing dB reader Numerical Sequences 80 [employer] with intent Independent hydrating Independently using dB meter to support productions Read Phrases 74 [employer] with intent Independent hydrating Nice volume Reading with intonation Cognitive Tasks 71 [employer] with intent Independent hydrating Less volume, but still intentional 2. Goal met 2 of 2 3. Goal met 2 of 2 4. Goal met 1 of 2 *Patient Education: ??Provided pt with home programming, reviewed each lesson that would be completed. *COMMERCIAL LINES ACCOUNT ASSISTANT??Assessment: Home programming 20, 21, 22 Next session will be practicing of cognitive linguistic tasks and conversations with unfamiliar partners to support generalization. Pt in agreement Pt to complete [employer] workbook on his own. 1-2 more sessions and then pt will be discharged. Certification Dates (Medicare Only) From To ??08/03/22 ??11/01/22 *Short Term Goals: 1. ??Pt will coordinate vocal and articulatory subsystems in hierarchical speech tasks by producingsounds with intention with maximum COMMERCIAL LINES ACCOUNT ASSISTANT support across 3 sessions by 2 weeks in order to speak with intent for functional communication needs. Goal met 09/27/22 2. Pt will coordinate vocal and articulatory subsystems in hierarchical speech tasks by producing sounds with intention with minimum to no support from COMMERCIAL LINES ACCOUNT ASSISTANT across 2 sessions by 10 wees in order to speak with intent for functional communication needs. Goal met 10/17/22 3. Pt will read phrases, sentences, and/or paragraphs with intention, yielding improved vocal quality, loudness, articulatory precision and endurance while maintaining a minimum of 70 dB with no COMMERCIAL LINES ACCOUNT ASSISTANT support across 2 sessions by 10 weeks in order to speak with intent for functional communication needs. Goal met 10/17/22 4. Pt will generalize intentional speech to cognitive-linguistic exercises and conversational speech with improved vocal quality, loudness, articulatory precision and endurance while maintaining a minimum of 70 dB with no COMMERCIAL LINES ACCOUNT ASSISTANT support across 2 sessions by 11 weeks in order to speak with intent for functional communication needs. *Day Care Teacher Goals: 1. Pt will engage in a 5-10 minute spontaneous conversation while using intent independently or with appropriate supports by 12 weeks. *Plan: ??Continue tx 1x/week *Procedure Documentation: CPT 35618: Treatment of Language, Voice:?40?? minutes Treatment of speech, language, voice, communication, and/or auditory processing disorder; individual (including speech-reading and lip-reading) *Total Time: 40 minutes *Time In: 2:20 pm *Time Out: 3:00 pm Electronically Signed on 10/18/22 07:30 AM Michelle Valladares MS [facility]-COMMERCIAL LINES ACCOUNT ASSISTANT Patient Care team information Care Team Personnel Name: Simone PANCHAL, Bernardo Le MD Position: No Access Member Role: Informed Provider Address: Address: [place] [id number]- Care Team Related Persons Name: LINDA VALENCIA Address: Home [address] [place] [address], [phone]
--- OUTSIDE RECORDS SUMMARY | 2023-03-29 16:16 | XMS_ITS | Continuity of Care Document ---
Author Name Unknown Organization [facility] Address [address] [place] [address] Care Team Providers Care Tax Audit Manager Name Role Phone Primeau IPHCBernardo Primary Care Physician Encounter [facility] Date(s): 08/15/22 - 08/15/22 [facility] [address] [place] [address] Discharge Disposition: Home or Self Care Attending Physician: Hawk Bhatti MD Admitting Physician: Hawk Bhatti MD Referring Physician: Hawk Bhatti MD Allergies, Adverse Reactions, Alerts No Known [...] Daily, # 180 tab, 6 Refill(s), Pharmacy: [id number] Start Date: 02/08/22 Status: Ordered [...] topical paste Topical, every night at bedtime, [place] teeth, swish for 30 seconds, then spit [...] team information Care Team Personnel Name: [facility] Position: No Access Member Role: Primary Care Physician Address: Address: [id number] [place] [address] Care Team Related Persons Name: LINDA VALENCIA Address: Home
--- OUTSIDE RECORDS SUMMARY | 2023-03-29 16:16 | XMS_ITS | Continuity of Care Document ---
Author Name Unknown Organization [facility] Address [address] [place] [address] Care Team Providers Care Floor Care Specialist Name Role Phone Bernardo Brewer Primary Care Physician Encounter [facility] Date(s): 03/26/22 - 05/10/22 [facility] [address] [place] [address] Discharge Disposition: Home or Self Care Attending Physician: Bernardo Brewer MD Admitting Physician: Bernardo Brewer MD Referring Physician: Bernardo Brewer MD Allergies, Adverse Reactions, Alerts No Known Medication Allergies Substance Reaction Severity Status Seasonal 1 Unknown Active 1hay fever Assessment and Plan Future Appointments Immunizations Given and Recorded Vaccine Date Status [...] 0 Refill(s) Start Date: 04/03/22 Status: Ordered fludrocortisone 0.1 mg oral tablet [...] Daily, # 180 tab, 6 Refill(s), Pharmacy: [id number] Start Date: 02/08/22 [...] topical paste Topical, every night at bedtime, [place] teeth, swish for 30 seconds, then spit out Start Date: 12/01/21 Status: Ordered topiramate 25 mg oral tablet 60 EA, TAKE 1 TABLET BY MOUTH TWICE DAILY, 0 Refill(s) Start Date: 04/03/22 Status: Ordered Tylenol PRN other (see comment), as needed Start Date: 12/01/21 Status: Ordered Problem List Condition Confirmation Course Effective Dates Status H ealth Status Informant Carpal tunnel syndrome Confirmed Active Cervical spondylosis 1 Confirmed Active Chest pain Confirmed Active Depressed Confirmed Active Disturbance in speech Confirmed Active Gastroesophageal reflux disease Confirmed Active Generalized epilepsy Confirmed Active Hemorrhoids Confirmed Active History of hypotension Confirmed Active Hyperlipidemia Confirmed Active Hypersomnia Confirmed Active Lesion of ulnar nerve Confirmed Active Obstructive sleep apnea syndrome Confirmed Active Osteoarthritis Confirmed Active Palpitations Confirmed Active Parkinson's disease Confirmed Active Periodic limb movement disorder Confirmed Active PLMD (periodic limb movement disorder) Confirmed Active 1Cervical spondylosis with radiculopathy Procedures Procedure Date Related Diagnosis Body Site Status Temporal artery biopsy 1 04/05/22 Completed Hip replacement 2 04/14/09 [facility] ed Orthopedic surgery 3 Comp leted Tonsillectomy Completed 1Temporal Artery Biopsy, Bilateral 2Right 3right IP joint fusion Social History Social History Type Response Tobacco Never tobacco user T obacco Use:. Sex Male Patient Care team information Personnel Name: [facility] Address: Address: [address] [address]- [place]
--- OUTSIDE RECORDS SUMMARY | 2023-03-29 16:16 | XMS_ITS | Continuity of Care Document ---
Author Name Unknown Organization [facility] Address [address] [place] [address] Care Team Providers Care Cover Seamer Name Role Phone Primeau [facility], Bernardo Le Primary Care Physician Encounter [facility] Date(s): 04/18/22 - 04/18/22 [facility] [address] [place] [address] Encounter Diagnosis Obstructive sleep apnea(Discharge Diagnosis) - 04/18/22 Hypersomnia(Discharge Diagnosis) - 04/18/22 Restless leg(Discharge Diagnosis) - 04/18/22 Obstructive sleep apnea (adult) (pediatric)(Final) - Hypersomnia, unspecified(Final) - Restless legs syndrome(Final) - Discharge Disposition: Home or Self Care Attending Physician: Erin Mckeon WATCH CRYSTAL GRINDER Allergies, Adverse Reactions, Alerts No Known Medication Allergies Substance Reaction Severity Status Seasonal 1 Unknown Active 1hay fever Assessment and Plan Future Appointments Functional Status 04/18/22 Other exposure to Infectious Disease Non e [...] Daily, # 180 tab, 6 Refill(s), Pharmacy: [id number] Start Date: 02/08/22 Status: [...] topical paste Topical, every night at bedtime, [place] teeth, swish for 30 seconds, then spit [...] Procedure Date Related Diagnosis Body Site Status Hip replacement 1 04/14/09 [facility] ed Orthopedic surgery 2 Comp leted Tonsillectomy Completed 1Right 2right IP joint fusion Vital Signs Most recent to oldest [Reference Range]: 1 Peripheral Pulse Rate [60-100 bpm] 82 bp m (04/18/22 2:40 PM) Blood Pressure [90-140/60-90 mmHg] 111/6 4mmHg (04/18/22 2:40 PM) Weight 78.93 kg (04/18/22 2:40 PM) Weight Measured (lbs) 174.011 lb (04/18/22 2:40 PM) Height 178 cm (04/18/22 2:40 PM) Height/Length Measured (inches) 70.08 in ch (04/18/22 2:40 PM) BSA Measured 1.98 m2 (04/18/22 2:40 PM) Body Mass Index 24.91 kg/m2 (04/18/22 2:40 PM) Social History Social History Type Response Tobacco Never tobacco user T obacco Use:. Sex Male Progress note * Benny Collado M: PERFORM Event Display: Progress Note - Physician Authored Date: [id number] Physician Outpatient Note * Erin Mckeon WATCH CRYSTAL GRINDER: PERFORM Event Display: Office Clinic Note Physician Authored Date: [id number] JIM GONZALEZ :1945 Age:76 years Sex:Male Visit Date:04/18/2022 Primary Care Physician: Simone ROBERTS [place], Bernardo Le MD Chief Complaint cpap compliance, c/o hypersomnia History of Present Illness 76 year old male here c/o daytime sleepiness, cpap compliance. ?? comorbidities of cervical spondylosis with radiculopathy, GERD, nocturnal generalized epilepsy (only ever occurred in past during his sleep, never when awake, under good control with Tegretol, no seizures for > 30 years), CAD. ?PREVIOUS SLEEP EVALUATION: Seen on 12/23/17 for sleep consultation at [...] sleep suggest lack of appropriate muscle atonia. ?? TODAY: Pt states his neurologist Dr. Lackey ([place]) has d/c'ed his carbidopa/levidopa and has??no change in any symptoms that he has noticed.??Recent biopsy was negative for temporal arteritis. He is bronson for f/u on the . Pt states he does not notice any RLS symptoms for the last few months. He is no longer on iron supplementation. He has cont Gabapentin 300mg BID and has been off of phenobarbital for 1 year. No seizure activity since then. Review of Systems A 10-point REVIEW OF SYSTEM was obtained and reviewed, includes CONSTITUTIONAL, EYES, NOSE, THROAT,RESPIRATORY, HEART, GASTROINTESTINAL, UROLOGIC, MUSCULOSKELETAL, PSYCHIATRY, SKIN systems. Pertinent symptoms are discussed in history, otherwise negative. Physical Exam Vitals & Measurements HR:??82??(Peripheral)?? BP:??111/64?? SpO2:??98%?? HT:??178??cm?? WT:??78.93??kg?? BMI:??24.91?? BSA:??1.98?? General well appearing??statedage, no acute distress,??normalbuild HEENT: atraumatic skull, anicteric RESPIRATORY: quiet respiration, able to speak in full sentences without dyspnea, no accessory muscle use, SKIN: no facial skin rash, no facial skin lesions PSYCHIATRIC: well groomed, fluent speech, good insight, linear thought process, good eye contact,balanced NEUROLOGIC: alert, oriented, symmetric facial expression ?? Clinical Data Reviewed: ?? 1.[place] Sleepiness Scale:??8out of 24. ?? 2.Sleep study results as above. ?? 3.No pertinent labs available.? 4. Machine Download Data:??Resmed AirSense 10 Auto CPAP?? PAP Settings: ??Auto CPAP?5 to??9??CmH2O Date Range: ?03/18/22 - 04/16/22 Days with Usage >=4 hours: ??53% Avg Usage per Day Used: ??5hr 33min Mean/Median Pressure: ?5.9 90th-tile/95th-tile Pressure: ??7.0?? Avg Time in Large Leak Daily?15.1 L/min Avg Treatment ??AHI: ??1.5/hr ?? 5. 03/2022 BG 74, H&H 14.2/41.7, TSH 1.7?? Assessment/Plan 1.??Obstructive sleep apnea??G47.33 Jim Gonzalez is a pleasant 76 year old male here for CPAP follow up. Download data reviewed and discussed with patient. Encouraged patient to increase his compliance in order to appropriately treat his KARLI and improve his daytime sleepiness. He has excellent reduction in AHI when he is using his CPAP, tx AHI 1.5/hr. Pt's data also reveals a large air leak from his mask which he endorses noticing. Pt is using nasalpillows and states his mask may be older than a month. Discussed replacing his PAP supplies regularly and tightening his mask properly for a good seal. He is considering a mask change to a FFM. Pt reports he tends to only wear his CPAP for the first few hours of his sleep and has multiple nocturnal awakenings to void, at which point he does not put his CPAP back on. Discussed possibly proceeding with a titration study to optimize his CPAP treatment and address hisdaytime sleepiness. 2.??Hypersomnia??G47.10 Pt is c/o daytime sleepiness. His neurologist has dc'ed his carbidopa/levodopa and phenobarbital (has been off x 1 year). He has not had any seizures in decades. He is taking Topiramate 25mg at bedtime for headaches. Discussed the relationship between regular CPAP usage, tx of KARLI, and sleepiness. Pt states he feels fatigued and sleepy even when he is using his CPAP. His ESS today is 8/24. Discussed possible medication options such as a stimulant, but pt states he would prefer to avoid medication despite his sleepiness severely affecting his day-to-day activities. 3.??Restless leg??G25.81 Pt denies any RLS symptoms in the last few months. He has finished his iron supplementation and is taking Gabapentin 300mg BID. Pt is taking vitamin D and magnesium supplementation. I provided greater than??40??minutes in the care of this patient, more than half the time was spentin [id number] counseling. ?with comorbidities of cervical spondylosis with radiculopathy, GERD, nocturnal generalized epilepsy (only ever occurred in past during his sleep, never when awake, under good control with Tegretol, no seizures for > 30 years), CAD. ? Clinical Data Reviewed: [place] Sleepiness Scale: 12/06 ? Sleep Clinical Timeline:?? Seen on 12/23/17 for [...] carbidopa/levodopa. He did meet with neurology in [place] and has a follow up MRI schedule [...] vit D, and magnesium; RLS well controlled. ?? Today's Assessment and Plan: See above. ?? Follow up: 3 months or sooner if needed. ? Problem List/Past Medical History Ongoing Carpal tunnel syndrome Cervical spondylosis Chest pain Depressed Disturbance in speech Gastroesophageal reflux disease Generalized epilepsy Hemorrhoids History of hypotension Hyperlipidemia Hypersomnia Lesion of ulnar nerve Obstructive sleep apnea syndrome Osteoarthritis Palpitations Parkinson's disease Periodic limb movement disorder PLMD (periodic limb movement disorder) Historical Carpal tunnel syndrome of right wrist Procedure/Surgical History ???Hip replacement (04/15/2009)???Orthopedic surgery???Tonsillectomy Medications amoxicillin 500 mg oral capsule, 2000 mg= 4 cap, Oral, As Directed Aspirin Low Dose 81 mg oral delayed release tablet fludrocortisone 0.1 mg oral tablet gabapentin 100 mg oral capsule ketorolac 10 mg oral tablet, See Instructions, PRN LORazepam 1 mg oral tablet Mag-G 500 mg oral tablet, 2 tab, Oral, Daily, 6 refills magnesium gluconate 500 mg oral tablet Myrbetriq 50 mg oral tablet, extended release omeprazole 20 mg oral delayed release capsule, 20 mg= 1 cap, Oral, Daily, PRN PreviDent 5000 Booster 1.1% topical paste, Topical, every night at bedtime topiramate 25 mg oral tablet Tylenol, PRN Allergies Seasonal No Known Medication Allergies Social History Alcohol Never Electronic Cigarette/Vaping Electronic Cigarette Use: Never. Home/Environment Lives with Spouse. Living situation: Home/Independent. Nutrition/Health Caffeine intake amount: 1 c coffee a day. Substance Use Never Tobacco Never tobacco user Tobacco Use:. Immunizations Vaccine Date Status SARS-COV-2 (COVID-19) vaccine, unspecifi 11/07/2021 Recorded SARS-COV-2 (COVID-19) vaccine, unspecifi 06/20/2020 Recorded SARS-COV-2 (COVID-19) vaccine, unspecifi 05/23/2020 Recorded Electronically Signed on 04/18/22 03:34 PM Erin Mckeon NP Electronically Signed on 04/18/22 03:33 PM Carl Ryder Patient Care team information Personnel Name: Bernardo Brewer MD Address: Address: [id number] [place] [address]
--- OUTSIDE RECORDS SUMMARY | 2023-03-29 16:16 | XMS_ITS | Continuity of Care Document ---
Author Name Unknown Organization [facility] Address [address] [place] [address] Care Team Providers Care Meal Room Hand Name Role Phone Primeau Bernardo PANCHAL Primary Care Physician Encounter [facility] Date(s): 09/20/22 - 09/20/22 [facility] [address] [place] [address] Encounter Diagnosis Tick bite(Discharge Diagnosis) - 09/20/22 Discharge Disposition: Home or Self Care Attending Physician: Garrett Carlton MD Admitting Physician: Garrett Carlton MD Allergies, Adverse Reactions, Alerts No Known Medication Allergies Substance Reaction Severity Status Seasonal 1 Unknown Active 1hay fever Assessment and Plan Extracted from: Title:Clinical Document Author:Bhanu Pham Date:09/20/22 Diagnosis: 1. Tick bite Comment: Diagnosis: Tick bite Comment: Future Appointments Future Scheduled Tests Radiology* MRI Shoulder w/o Contrast Right 07/19/22 Functional Status 09/20/22 Other exposure to Infectious Disease Non e [...] Daily, # 90 tab, 3 Refill(s), Pharmacy: [facility], 180, cm, 03/27/22 11:48:00 EST, Height/Length Dosing, [...] Daily, # 180 tab, 6 Refill(s), Pharmacy: [id number] Start Date: 02/08/22 Status: Ordered magnesium gluconate 500 mg oral tablet 0 Refill(s) Start Date: 04/03/22 Status: Ordered melatonin 3 mg oral tablet 3 mg = 1 tab, Oral, every day at bedtime, # 60 tab, 0 Refill(s), Pharmacy: [id number], 180, cm, 03/27/22 11:48:00 [...] topical paste Topical, every night at bedtime, [place] teeth, swish for 30 seconds, then spit [...] 0 Refill(s) Start Date: 07/17/22 Status: Ordered Mental Status 09/20/22 Eye Opening Response [place] Spontaneous ly Best Verbal Response [place] Oriented Best Motor Response [place] Obeys comman ds [place] Coma Score 15 Problem List Condition Confirmation Course Effective Dates [...] Most recent to oldest [Reference Range]: 1 Temperature Temporal Artery [36-38 Deg C ] 35.9 Deg C *LOW* (09/20/22 4:24 PM) Peripheral Pulse Rate [60-100 bpm] 86 bp m (09/20/22 4:24 PM) Respiratory Rate [12-24 br/min] 18 br/mi n (09/20/22 4:24 PM) Blood Pressure [90-140/60-90 mmHg] 152/7 0mmHg *HI* (09/20/22 4:24 PM) Weight Dosing 78.00 kg (09/20/22 4:28 PM) Weight Estimated 78.00 kg (09/20/22 4:24 PM) Height/Length Dosing 178.000 cm (09/20/22 4:28 PM) Height/Length Estimated 178.000 cm (09/20/22 4:24 PM) Social History Social History Type Response Tobacco Former tobacco user Tobacco Use:. Sex Male Hospital Discharge Instructions Follow Up Care 09/20/2022 16:24:03 With:Bernardo Brewer MD Address: [address] [phone] When:1 month Physician Emergency department Note * Garrett Carlton MD: PERFORM Event Display: ED Note Physician Authored Date: [id number] VALENCIASAJAN :1945 Age:76 years Sex:Male Visit Date:09/20/2022 Primary Care Physician: Bernardo Brewer MD Basic Information Time Seen: Garrett Carlton MD / 09/20/2022 16:50 Chief Complaint tick to right back of arm. found this morning. no other s/s History Of Present Illness: found tick on right arm this am. No symptoms Review of Systems: no fever Physical Exam Vitals & Measurements T:??35.9?C ??(Temporal Artery)?? HR:??86??(Peripheral)?? RR:??18?? BP:??152/70?? SpO2:??98%?? HT:??178.000??cm?? WT:??78.00??kg??(Estimated)?? Pain Score:??2?? O2 Therapy:??Room air?? ext: deer tick in right upper arm. no erythema. Medical Decision Making: doxy given. Procedure No Qualifying Data Assessment/Plan 1.??Tick bite??W57.XXXA Ordered: Discharge Patient, 09/20/22 17:03:00 EDT, Home Independently, Constant Indicator ?? Follow Up With When Contact Information [facility], Bernardo Le MD Within [address] [phone] Additional Instructions: Medication Reconciliation Unchanged acetaminophen (Tylenol)as needed other (see comment). as needed. ?? amoxicillin (amoxicillin 500 mg oral capsule)4 Capsules Oral (given by mouth) As Directed. Take onehour before dental appointment. ?? aspirin (Aspirin Low Dose 81 mg oral delayed release tablet) ?? cyanocobalamin ?? cyanocobalamin (Vitamin B-12 500 mcg oral tablet) ?? fludrocortisone (fludrocortisone 0.1 mg oral tablet)30 EA, TAKE 1 TABLET BY MOUTH ONCE DAILY MAY REQUIRE FURTHER TITRATION. ?? fluoride topical (PreviDent 5000 Booster 1.1% topical paste)Topical (on the skin) every night at bedtime. [place] teeth, swish for 30 seconds, then spit out. ?? gabapentin (gabapentin 100 mg oral capsule) ?? ketorolac (ketorolac 10 mg oral tablet)TAKE 1 TABLET BY MOUTH DAILY (DO NOT TAKE MORE THAN 2 TABLETS PER WEEK FOR HEADACHE PAIN> 5/10); as needed pain. ?? LORazepam (LORazepam 1 mg oral tablet) ?? magnesium gluconate (Mag-G 500 mg oral tablet)2 tab Oral (given by mouth) every day. Refills: 6. ?? magnesium gluconate (magnesium gluconate 500 mg oral tablet) ?? melatonin (melatonin 3 mg oral tablet)1 tab Oral (given by mouth) every night at bedtime. Refills: 0. ?? mirabegron (Myrbetriq 50 mg oral tablet, extended release)90 EA, TAKE 1 TABLET BY MOUTH ONCE DAILY. ?? omega-3 polyunsaturated fatty acids (Fish Oil oral capsule)1 Capsules Oral (given by mouth) every day. ?? omeprazole (omeprazole 20 mg oral delayed release capsule)1 Capsules Oral (given by mouth) every day as needed other (see comment). as needed. ?? selegiline (selegiline 5 mg oral tablet)1 tab Oral (given by mouth) 2 times a day. ?? topiramate (topiramate 25 mg oral tablet)60 EA, TAKE 1 TABLET BY MOUTH TWICE DAILY. ?? vibegron (Gemtesa 75 mg oral tablet)1 tab Oral (given by mouth) every day for 28 Days. Refills: 0. ?? vibegron (Gemtesa 75 mg oral tablet)1 tab Oral (given by mouth) every day for 90 Days. Refills: 3. Problem List/Past Medical History Ongoing Carcinoma of [...] ???Temporal artery biopsy (04/06/2022)???Hip replacement (04/15/2009)???Orthopedic surgery???Tonsillectomy Medication Administration Given doxycycline monohydrate, 200 mg, Oral Allergies Seasonal No Known Medication Allergies Social History Alcohol Never Electronic Cigarette/Vaping Electronic Cigarette Use: Never. Home/Environment Lives with Spouse. Living situation: Home/Independent. Nutrition/Health Caffeine intake amount: 1 c coffee a day. Substance Use Never Tobacco Former tobacco user Tobacco Use:. Electronically Signed on 09/20/22 07:23 PM Garrett Carlton MD Emergency department Discharge instructions * Garrett Carlton MD: PERFORM Event Display: ED Discharge Information Authored Date: [id number] SAJAN VALENCIA :1945 Age:76 years Sex:Male Visit Date:09/20/2022 Primary Care Physician: Bernardo Brewer MD Discharge Instructions We would like to thank you for allowing us to assist you with your healthcare needs. The following includes patient education materials and information regarding your injury/illness. Diagnosis from Today's Visit Tick bite Discharge Vitals Temperature??(Temporal Artery) 96.6 ??F (35.9 ??C) Heart Rate??(Peripheral) 86 Respiratory Rate?? 18 Blood Pressure?? 152/70?? Height?? 70.08 in (178.000 cm) Weight??(Estimated) 171.99 lb (78.00 kg) Allergies Seasonal No Known Medication Allergies What to Do Next Instructions from Your Care Team Wash with soap and water and keep clean and dry/ You Need to Schedule the Following Appointments Follow Up with??Bernardo Brewer MD When:??Within 1 month Where: [address] [phone] Upcoming Scheduled Appointments 2022 9:45 AM EDT ?? With: Michelle Valladares Where: [address] [address] Status: Confirmed 2022 9:00 AM EDT ?? 2022 10:30 AM EDT ?? With: Michelle Valladares Where: [address] [address] Status: Confirmed 2022 9:45 AM EDT ?? With: Michelle Valladares Where: [address] [address] Status: Confirmed You were treated today on an emergency basis; it may be porras to contact your primary care provider to notify them of your visit today. You may have been referred to your regular doctor or a specialist, please follow up as instructed. If your condition worsens or you can't get in to see the doctor, contact the Emergency Department. Medications What How Much When Why Instructions Next Dose Unchanged acetaminophen (Tylenol) As needed for other (see comment) as needed ?? Unchanged amoxicillin (amoxicillin 500 mg oral capsule) 4 Capsules Oral (given by mouth) As Directed Take one hour before dental appointment ?? Unchanged aspirin (Aspirin Low Dose 81 mg oral delayed release tablet) Unchanged cyanocobalamin Unchanged cyanocobalamin (Vitamin B-12 500 mcg oral tablet) Unchanged fludrocortisone (fludrocortisone 0.1 mg oral tablet) 30 EA, TAKE 1 TABLET BY MOUTH ONCE DAILY MAY REQUIRE FURTHER TITRATION ?? Unchanged fluoride topical (PreviDent 5000 Booster 1.1% topical paste) Topical (on the skin) Every night at bedtime [place] teeth, swish for 30 seconds, then spit out ?? Unchanged gabapentin (gabapentin 100 mg oral capsule) Unchanged ketorolac (ketorolac 10 mg oral tablet) See instructions TAKE 1 TABLET BY MOUTH DAILY (DO NOT TAKE MORE THAN 2 TABLETS PER WEEK FOR HEADACHE PAIN> 5/ 10), As needed for pain ?? Unchanged LORazepam (LORazepam 1 mg oral tablet) Unchanged magnesium gluconate (Mag-G 500 mg oral tablet) 2 tab Oral (given by mouth) Every day Unchanged magnesium gluconate (magnesium gluconate 500 mg oral tablet) Unchanged melatonin (melatonin 3 mg oral tablet) 1 tab Oral (given by mouth) Every night at bedtime Unchanged mirabegron (Myrbetriq 50 mg oral tablet, extended release) 90 EA, TAKE 1 TABLET BY MOUTH ONCE DAILY ?? Unchanged omega-3 polyunsaturated fatty acids (Fish Oil oral capsule) 1 Capsules Oral (given by mouth) Every day Unchanged omeprazole (omeprazole 20 mg oral delayed release capsule) 1 Capsules Oral (given by mouth) Every day as needed for other (see comment) as needed ?? Unchanged selegiline (selegiline 5 mg oral tablet) 1 tab Oral (given by mouth) 2 times a day Unchanged topiramate (topiramate 25 mg oral tablet) 60 EA, TAKE 1 TABLET BY MOUTH TWICE DAILY ?? Unchanged vibegron (Gemtesa 75 mg oral tablet) 1 tab Oral (given by mouth) Every day Nocturia Overactive bladder Duration: 28 Days Unchanged vibegron (Gemtesa 75 mg oral tablet) 1 tab Oral (given by mouth) Every day Overactive bladder Duration: 90 Days Patient/Mechanical Research Engineer Signature Patient Name:SAJAN VALENCIA I have received this information and my questions have been answered. Patient/Mechanical Research Engineer Name: Patient/Mechanical Research Engineer Signature: Relationship to Patient: Witness Name/Signature: Date: Electronically Signed on: 09/20/2022 17:03 EDTSigned by:NRK Discharge summary * Bhanu Pham: PERFORM Event Display: Discharge Note Authored Date: * Bhanu Pham: PERFORM Event Display: Discharge Note Authored Date: Diagnosis: 1. Tick bite Comment: Diagnosis: Tick bite Comment: Electronically Signed on 09/20/22 05:10 PM Bhanu Pham Patient Care team information Care Team Personnel Name: Bernardo Brewer MD Position: No Access Member Role: Informed Provider Address: Address: [address] [address] Name: Garrett Carlton MD Position: Physician Member Role: ED Physician Address: Address: [facility] [address] [place], [address]- Care Team Related Persons Name: LINDA VALENCIA Address: Home [address] [place] [address] [place], [phone]
--- OUTSIDE RECORDS SUMMARY | 2023-03-29 16:16 | XMS_ITS | Continuity of Care Document ---
Author Name Unknown Organization [facility] Address [address] [place] [address] Care Team Providers Care Inside Barrel Polisher Name Role Phone Primeau IPHCBernardo Primary Care Physician Encounter [facility] Date(s): 10/09/22 - 10/09/22 [facility] [address] [place] [address] Discharge Disposition: Home or Self Care Attending Physician: Tadeo Castaneda MD Admitting Physician: Tadeo Castaneda MD Referring Physician: Tadeo Castaneda MD Allergies, Adverse Reactions, Alerts No Known Medication Allergies Substance Reaction Severity Status Seasonal 1 Unknown Active 1hay fever Assessment and Plan Future Appointments Diagnostic Tests Pending * Non DESCRIPTIVE CATALOG LIBRARIAN/FNA Cytology [facility] 10/09/22 * Non DESCRIPTIVE CATALOG LIBRARIAN/FNA Cytology [facility] 10/09/22 Future Scheduled Tests Radiology* MRI Shoulder w/o Contrast Right 07/19/22 Functional Status 10/09/22 Other exposure to Infectious Disease Non e [...] Daily, # 90 tab, 3 Refill(s), Pharmacy: [id number], 180, cm, 03/27/22 11:48:00 [...] Daily, # 180 tab, 6 Refill(s), Pharmacy: [facility] Start Date: 02/08/22 Status: Ordered magnesium gluconate 500 mg oral tablet 0 Refill(s) Start Date: 04/03/22 Status: Ordered melatonin 3 mg oral tablet 3 mg = 1 tab, Oral, every day at bedtime, # 60 tab, 0 Refill(s), Pharmacy: [id number], 180, cm, 03/27/22 11:48:00 EST, Height/Length Dosing, [...] topical paste Topical, every night at bedtime, [place] teeth, swish for 30 seconds, then spit [...] far. he will also be seeing Dr Yo cuevas nxt month 11/10/18: seeing Dr Mcdonough at [facility] and she started him on gabapentin instead [...] 2 tabs nightly x3 days sent to [facility] pharmacy 07/20/2021. patient would like to come off of his phenobarbital, he plans to discuss with neurology [facility] 07-26-2021 visit: 02/13/2021: Patient is using and benefiting from CPAP 5 to 15 cm, however when he tried using the nasal mask, could not tolerate such high pressures and felt it was too much resistant to breathe against. We decided it was better for him to be on the full facemask AirFit F20 large. Of note he had to pay for the CPAP [id number] as insurance did not cover it based [...] Biopsy, Bilateral 2Right 3right IP joint fusion Results Laboratory List Name Date Urinalysis with Micro if Indicated and C ulture if Indicated 10/09/22 Most recent to oldest [Reference Range]: 1 UA Color Pale Yellow (10/09/22 7:51 AM) UA Urobilinogen Normal (10/09/22 7:51 AM) UA Bili [Negative] Negative (10/09/22 7:51 AM) UA Ketones Negative (10/09/22 7:51 AM) UA Leuk Est Negative (10/09/22 7:51 AM) UA Nitrite Negative (10/09/22 7:51 AM) UA Glucose [Negative] Negative (10/09/22 7:51 AM) UA Protein Negative (10/09/22 7:51 AM) UA Blood Negative (10/09/22 7:51 AM) UA Spec Grav <=1.005 *NA* (10/09/22 7:51 AM) UA pH 7.0 *NA* (10/09/22 7:51 AM) UA Appear Clear (10/09/22 7:51 AM) Vital Signs Most recent to oldest [Reference Range]: 1 Temperature Temporal Artery [36-38 Deg C ] 36.4 Deg C (10/09/22 7:37 AM) Peripheral Pulse Rate [60-100 bpm] 83 bp m (10/09/22 7:37 AM) Blood Pressure [90-140/60-90 mmHg] 152/9 8mmHg *HI* (10/09/22 7:37 AM) Social History Social History Type Response Tobacco Former tobacco user Tobacco Use:. 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 He states his Gemtesa has been somewhat helpful,??on and off,??but is not sure its worst $75 a month. ??He was made aware that $75 for that medication is actually quite a discount. ??However, I provided another months worth of samples??so he can be more sure??of its efficacy. Pre-Procedure Exam Preoperative Diagnosis: Irritative LUTS with prior exposures ?? Postoperative Diagnosis:?Same ?? Procedure:?Diagnostic flexible cystourethroscopy with bladder barbotage. Procedural Sedation None. Technique Informed consent was obtained and a timeout was performed. ??He was sterilely prepared and draped. ??Lidocaine jelly was instilled per urethra. ??Diagnostic flexible cystourethroscopy was performed.?? He had a mild restriction at the meatal/sub??now I came on the computer to do it but then I got sidetracked. ??Meatal area which was gently dilated with the tip of the Uro-Jet.?? The anterior urethra was otherwise normal.?? The sphincter appeared intact. ??The prostate showed mild??trilobar hyperplasia with??minimal visual outlet obstruction over a short prostatic urethral length. ??The mucosa was somewhat friable and innumerable tiny black??and brown??calculi were noted on the prostatic surface.?? The bladder was of normal capacity with moderate trabeculation.?? A small diverticulum was noted posteriorly within normal mucosa.?? A cellule was noted just right of the midline posteriorly.?? There were no foreign bodies, no bladder calculi, and no discrete papillary or sessile lesions were noted. ??On retroflexion of the scope,??a mild circumferential bulge of prostate tissue was noted with no discrete intravesical median lobe protrusion. ??A cytology was taken. ?? The patient tolerated the procedure well.?? He was brought to the holding area in satisfactory condition. ?? Plan:??Await cytology. ??Notify of results. ??Continue Gemtesa for another month before any final decisions about??filling the prescription.?? Overactive bladder appears to be the correct diagnosis. Assessment/Plan Urgency of urination??R39.15 Electronically Signed on 10/09/22 08:51 AM Tadeo Castaneda MD Patient Care team information Care Team Personnel Name: Bernardo Brewer MD Position: No Access Member Role: Informed Provider Address: Address: [address] Care Team Related Persons Name: LINDA VALENCIA Address: Home [address] [place] [address], [phone]
[2023-03-29 19:09] LABS: Anion Gap 3.5 mmol/L (3-11); BUN 23 mg/dL (7-18); CO2 30.5 mmol/L (21.0-32.0); CREATININE 1.2 mg/dL (0.70-1.30); Calcium 9.5 mg/dL (8.5-10.1); Chloride 103 mmol/L (98-107); Glucose 107 mg/dL (74-106); Potassium 4.2 mmol/L (3.5-5.1); Sodium 137 mmol/L (136-145); TSH 1.09 uIU/mL (0.36-3.74)
== END 2023-03-29 16:14 | disposition home or self-care (01) ==
LOC: NCHCN 16:13
PROVIDERS: PCP Internal Medicine; Visit Provider Internal Medicine
DX: I10 Essential (primary) hypertension (principal)
CPT/HCPCS: 80048; 84443

== ENCOUNTER 2023-06-19 16:07 | Outpatient (REF) | payer MEDICARE, BC, SELFPAY ==
--- NOTE | 2023-06-19 14:20 | SKI_PTH ---
PATIENT: Jim Gonzalez LOC: [facility] U#:[id number] AGE/SX: 77/M ROOM: RE06/19/[address]: Bernardo Nichols : 1945 BED: DIS: 06/19/2023 SPEC #: [id number] RECD: 06/20/23 12:41 STATUS: APRIL REMark #: [id number] CAREY: 06/19/23 14:[address]: Bernardo Nichols DEPT: Surgical Specimen RECD BY: Shaneka Barney Tissues: 1 - SKIN BIOPSY(SHAVE/PUNCH) Procedures: IMMUNOPEROXIDASE STAIN SKIN LEVEL 4 Comments: [id number]
== END 2023-06-19 16:08 | disposition home or self-care (01) ==
LOC: NCHCN 16:07
PROVIDERS: PCP Internal Medicine; Visit Provider Internal Medicine
DX: I10 Essential (primary) hypertension (principal)
CPT/HCPCS: 88305; 88361

== ENCOUNTER 2023-09-05 14:40 | Outpatient (REF) | payer MEDICARE, BC, SELFPAY ==
[2023-09-05 19:20] LABS: HCT 43.3 % (40.0-50.0); HGB 14.6 g/dL (13.5-17.5); MCHC 33.7 % (32.0-36.0); MCV 86 fL (80-95); MPV 9.2 fL (8.0-11.0); Platelet Count 232 10^3/uL (130-400); RBC 5.03 10^6/uL (4.36-5.78); RDW 12.1 % (11.8-14.1); RDW-SD 38.3 fL; WBC 6.98 10^3/uL (4.4-10.8)
[2023-09-05 19:24] LABS: ALT 12 U/L (16-63); AST 20 U/L (15-37); Alkaline Phosphatase 74 U/L (46-116); Anion Gap 4.2 mmol/L (3-11); BUN 15 mg/dL (7-18); CO2 26.8 mmol/L (21.0-32.0); CREATININE 1.1 mg/dL (0.70-1.30); Calcium 9.4 mg/dL (8.5-10.1); Chloride 105 mmol/L (98-107); Estimated GFR 68.71 (mL/min/1.73m2); Glucose 92 mg/dL (74-106); Potassium 4.1 mmol/L (3.5-5.1); Sodium 136 mmol/L (136-145); Total Protein 7.5 g/dL (6.4-8.2)
== END 2023-09-05 14:41 | disposition home or self-care (01) ==
LOC: NCHCN 14:40
PROVIDERS: PCP Internal Medicine; Visit Provider Internal Medicine
DX: N40.1 Benign prostatic hyperplasia with lower urinary tract symptoms (principal)
CPT/HCPCS: 80053; 85027

== ENCOUNTER 2023-11-13 12:49 | Outpatient (REF) | payer MEDICARE, BC, SELFPAY ==
--- OUTSIDE RECORDS SUMMARY | 2023-11-13 12:54 | XMS_ITS | Continuity of Care Document ---
Author Organization [facility] Address [address] [place] [address] Care Team Providers Care Nailhead Puncher Name Role Phone Primeau IPHC, Bernardo Le Primary Care Physician Encounter [facility] Date(s): 04/03/23 - 04/03/23 [facility] [address] [place] [address] Encounter Diagnosis Obstructive sleep apnea syndrome(Discharge Diagnosis) - 04/03/23 PLMD (periodic limb movement disorder)(Discharge Diagnosis) - 04/03/23 Discharge Disposition: Home or Self Care Attending Physician: Erin Mckeon STAFFING SPECIALIST Allergies, Adverse Reactions, Alerts Substance Reaction Severity Status mixed grass pollens allergen extract 1 Unknown [place] Active Seasonal 2 Unknown Active 1Outside Source Comment: Hay Fever 2hay fever Assessment and Plan Future Appointments Future [...] 0 Refill(s) Start Date: 04/03/22 Status: Ordered atropine 1% ophthalmic solution PLACE 1 TO 2 DROPS UNDER THE TONGUE UP TO THREE TIMES PER DAY NEEDED FOR EXCESSIVE SALIVATION Start Date: 01/14/23 Status: Ordered carbidopa-levodopa 25 mg-100 mg oral [...] Daily, # 90 tab, 3 Refill(s), Pharmacy: [id number], 180, cm, 03/27/22 11:48:00 EST, Height/Length Dosing, 81, kg, 03/27/22 11:48:00 EST, Weight Dosing Start Date: 09/19/22 Stop Date: 09/14/23 Status: Ordered Hair Skin and Nails oral tablet 0 Refill(s) Start Date: 04/03/23 Status: Ordered ketorolac 10 mg oral tablet See Instructions, PRN pain, TAKE 1 TABLET BY MOUTH DAILY (DO NOT TAKE MORE THAN 2 TABLETS PER WEEK FOR HEADACHE PAIN> 5/10) Start Date: 12/01/21 Status: Ordered LORazepam 1 mg oral tablet Start Date: 12/01/21 Status: Ordered Mag-G 500 mg oral tablet 2 tab, Oral, Daily, # 180 tab, 6 Refill(s), Pharmacy: [facility] Start Date: 02/08/22 Status: Ordered magnesium gluconate 500 mg oral tablet 0 Refill(s) Start Date: 04/03/22 Status: Ordered melatonin 3 mg oral tablet 3 mg = 1 tab, Oral, every day at bedtime, # 60 tab, 6 Refill(s), Pharmacy: [id number], 178, cm, 09/20/22 16:28:00 EDT, Height/Length Dosing, 78, kg, 09/20/22 16:28:00 EDT, Weight Dosing Start Date: 11/01/22 Status: Ordered Myrbetriq 50 mg oral tablet, extended release 90 EA, TAKE 1 TABLET BY MOUTH ONCE DAILY, 0 Refill(s) Start Date: 04/03/22 Status: Ordered omeprazole 20 mg oral delayed release capsule 20 mg = 1 cap, Oral, Daily, PRN other (see comment), as needed Start Date: 12/01/21 Status: Ordered PreviDent 5000 Booster 1.1% topical paste Topical, every night at bedtime, [place] teeth, swish for 30 seconds, then spit [...] Refill(s) Start Date: 07/17/22 Status: Ordered Vitamin B1 100 mg oral tablet 0 Refill(s) Start Date: 04/03/23 Status: Ordered Vitamin D3 Daily, 0 Refill(s) [...] arteritis Confirmed Active 1[facility]: 03/[facility]18: well controlled, no seizures [...] nxt month 11/10/18: seeing Dr Mcdonough at [facility] and she started him on gabapentin instead [...] 2 tabs nightly x3 days sent to [facility] pharmacy 07/20/2021. patient would like to come off of his phenobarbital, he plans to discuss with [facility]: 02/13/2021: Patient is using and benefiting from CPAP 5 to 15 cm, however when he tried using the nasal mask, could not tolerate such high pressures and felt it was too much resistant to breathe against. We decided it was better for him to be on the full facemask AirFit F20 large. Of note he had to pay for the CPAP [id number] as insurance did not cover it based [...] 1 04/05/22 Completed Hip replacement 2 04/14/09 [facility] ed Orthopedic surgery 3 Comp leted Tonsillectomy Completed 1Temporal Artery Biopsy, Bilateral 2Right 3right IP joint fusion Vital Signs Most recent to oldest [Reference Range]: 1 Peripheral Pulse Rate [60-100 bpm] 76 bp m (04/03/23 12:53 PM) Blood Pressure [90-140/60-90 mmHg] 160/8 8mmHg *HI* (04/03/23 12:53 PM) Mean Arterial Pressure, Cuff [70-110 mmH g] 112 mmHg *HI* (04/03/23 12:53 PM) Weight 80.74 kg (04/03/23 12:53 PM) Weight Measured (lbs) 178.001 lb (04/03/23 12:53 PM) Weight Dosing 80.740 kg (04/03/23 12:53 PM) Height 180.34 cm (04/03/23 12:53 PM) Height/Length Measured (inches) 71 inch (04/03/23 12:53 PM) BSA Measured 2.01 m2 (04/03/23 12:53 PM) Body Mass Index 24.83 kg/m2 (04/03/23 12:53 PM) Social History Social History Type Response Tobacco Former tobacco user Tobacco Use:. Sex Male Progress note * Carmela Juan R: PERFORM Event Display: Progress Note - Physician Authored Date: [id number] Physician Outpatient Note * Erin Mckeon STAFFING SPECIALIST: PERFORM Event Display: Office Clinic Note Physician Authored Date: [id number] JIM OGNZALEZ :1945 Age:77 years Sex:Male Visit Date:04/03/2023 Primary Care Physician: Simone PANCHAL, Bernardo Le MD Chief Complaint cpap compliance History of Present Illness 77 years??male??here for sleep follow up ?? TODAY: Patient states he has had no big changes since his last appointment. ?? he is trying to use his CPAP most nights. Reports he sleeps well and falls asleep quickly. Does state he wakes up multiple times through the night to urinate but falls back asleep quickly. He saw Dr. Castaneda for his frequent urination and was started on samples of Gemtesa but it was too expensive, not taking anymore. Review of Systems A 10-point REVIEW OF SYSTEM was obtained and reviewed, includes CONSTITUTIONAL, EYES, NOSE, THROAT,RESPIRATORY, HEART, GASTROINTESTINAL, UROLOGIC, MUSCULOSKELETAL, PSYCHIATRY, SKIN systems. Pertinent symptoms are discussed in history, otherwise negative. Physical Exam Vitals & Measurements HR:??76??(Peripheral)?? BP:??160/88?? SpO2:??100%?? HT:??180.34??cm?? WT:??80.74??kg?? BMI:??24.83?? BSA:??2.01?? General:??well appearing, appearing stated age, no acute [...] apnea syndrome??G47.33 Jim Gonzalez is a pleasant 77 year old male here for CPAP compliance. Download data reviewed and discussed with the patient. He has moderate compliance and states he tries to use his machine nightly.KARLI is well treated when he uses his CPAP, tx AHI 2.8/hr on fixed CPAP 5cm H20. Encouraged him to use his CPAP machine more. He is replacing his PAP supplies regularly. ?? He feels he is using and benefitting from CPAP and has more energy during the day.??States he fallsasleep quickly and perceives good quality sleep. Does note that he wakes up up to 5x a night due toneeding to urinate, but is not taking any medications for this at the moment. He was briefly takingGemtesa but was unable to afford it after the sample period. Advised he follow up with his urologist again. ?? Cont melatonin 3mg and Mg gluconate??nightly. ?? He is following with a skin toggler program that he found online, plans to take B1 and thiamin,??and??neurologist at [facility]??for his Parkinson's treatment. Cautioned patient regarding online healthcare programs and encouraged him to discuss all treatments with??his PCP and neurologist.??He does report having some trouble with phlegm/swallowing and advised him to bring it up to Dr. Nichols, as he is currently taking Mucinex frequently. ?? Plan for 6 month follow up compliance check. ?? 2.??PLMD (periodic limb movement disorder)??G47.61 Not taking gabapentin, but is taking carbidopa/levodopa (was not taking??at time of his August 2022 titration study).??No complaints about RLS today. ?? I provided greater than??40??minutes in the care of this patient, more than half the time was spentin [id number] counseling. ?with comorbidities of cervical spondylosis with radiculopathy, GERD, nocturnal generalized epilepsy (only ever occurred in past during his sleep, never when awake, under good control with Tegretol, no seizures for > 30 years), CAD. ? Clinical Data Reviewed: [place] Sleepiness Scale: 12/06 ?? Machine Download Data:??Resmed AirSense 10 Auto CPAP?? PAP Settings: ??CPAP??5? CmH2O Date Range: ?03/03/23 - 04/01/23 Days with Usage >=4 hours: ??60% Avg Usage per Day Used: ??5hr 44min Leak:?4.9/19.2 Avg Treatment ??AHI: ??2.8/hr ? Sleep Clinical Timeline:?? Seen on 12/23/17 [...] AHI: N/A/hr. 3. Mean SpO2: 92% and Mracos SpO2: 89% on Room Air; 0.0 minutes [...] carbidopa/levodopa. He did meet with neurology in [place] and has a follow up MRI schedule [...] with PCP other causes of sleepiness in Feb. Cont Gabapentin, vit D, and magnesium; RLS [...] air leak, prefers supplies thru [facility]. ?? 04/03/2023: Patient is using and benefitting from CPAP therapy, has more energy during the day and sleeps well at night. Is having frequent awakenings at night to urinate, advise to f/u with urology.On carbidopa/levodopa for Parkinson's, follows with [facility] neurology. ?? Current Mask: ?? Resmed Airfit P10 nasal pillow with large inserts.? DME: [facility] ? Today's Assessment and Plan: See above ?? Follow up: 6 months or sooner if needed. ?? Remote Scribed by Carl Ryder Problem List/Past Medical History Ongoing Carcinoma of skin Carpal tunnel syndrome Cervical spondylosis Chest pain Depressed Disturbance in speech Dyspnea on exertion Gastroesophageal reflux disease Generalized epilepsy Giant cell arteritis Headache Hemorrhoids History of BPH History of hypotension History of right hip replacement Hyperlipidemia Hypersomnia Hypertension Lesion of ulnar nerve Low back pain Obstructive sleep apnea syndrome Olecranon bursitis, left [...] physician if questions or concerns ?? Unchanged atropine ophthalmic (atropine 1% ophthalmic solution) PLACE 1 TO 2 DROPS UNDER THE TONGUE UP TO THREE TIMES PER DAY NEEDED FOR EXCESSIVE SALIVATION Contact prescribing physician if questions or concerns ?? Unchanged carbidopa-levodopa (carbidopa-levodopa 25 mg-100 mg oral tablet) 1 tab Oral (given by mouth) 3 times a day Contact prescribing physician if questions or concerns ?? Unchanged cholecalciferol (Vitamin D3) Every day Contact prescribing physician if questions [...] (on the skin) Every night at bedtime [place] teeth, swish for 30 seconds, then spit [...] physician if questions or concerns ?? Unchanged multivitamin with minerals (Hair Skin and Nails oral tablet) Contact prescribing physician if questions [...] physician if questions or concerns ?? Unchanged thiamine (Vitamin B1 100 mg oral tablet) Contact prescribing physician if [...] physician if questions or concerns ?? Allergies mixed grass pollens allergen extract??(Unknown) Seasonal Social History Alcohol Never Electronic Cigarette/Vaping Electronic Cigarette Use: Never. Home/Environment Lives with Spouse. Living situation: Home/Independent. Nutrition/Health Caffeine intake amount: 1 c coffee a day. Substance Use Never Tobacco Former tobacco user Tobacco Use:. Immunizations Vaccine Date Status SARS-COV-2 (COVID-19) vaccine, unspecifi 11/07/2021 Recorded SARS-COV-2 (COVID-19) vaccine, unspecifi 06/20/2020 Recorded SARS-COV-2 (COVID-19) vaccine, unspecifi 05/23/2020 Recorded Electronically Signed on 04/03/23 02:10 PM Erin Mckeon NP Electronically Signed on 04/03/23 01:40 PM Carl Ryder Patient Care team information Care Team Personnel Name: Bernardo Brewer MD Position: No Access Member Role: Informed Provider Address: Address: [address] Care Team Related Persons Name: LINDA GONZALEZ Address: Home [address] [place] [address], [phone]
--- OUTSIDE RECORDS SUMMARY | 2023-11-13 12:54 | XMS_ITS | Continuity of Care Document ---
Author Organization [facility] Address [address] [place] [address] Care Team Providers Care Magazine Designer Name Role Phone Primeau IPHCBernardo Primary Care Physician Encounter [facility] Date(s): 03/27/22 - 03/27/22 [facility] [address] [place] [address] Encounter Diagnosis Headache(Discharge Diagnosis) - 03/27/22 Headache, unspecified(Final) - Other correction (current) drug therapy(Final) - Discharge Disposition: Home or Self Care Attending Physician: Sumeet Carrillo MD Admitting Physician: Sumeet Carrillo MD Allergies, Adverse Reactions, Alerts No Known Medication Allergies Substance Reaction Severity Status Seasonal 1 Unknown Active 1hay fever Assessment and Plan Future Appointments Functional Status 03/27/22 Family Member Travel History No recent t ravel Recent Travel History No recent travel Other exposure to Infectious Disease Non e Medications amoxicillin 500 mg oral capsule 2,000 mg = 4 cap, Oral, As Directed, Take one hour before dental appointment Start Date: 12/01/21 Status: Ordered ketorolac 10 mg oral tablet See Instructions, PRN pain, TAKE 1 TABLET BY MOUTH DAILY (DO NOT TAKE MORE THAN 2 TABLETS PER WEEK FOR HEADACHE PAIN> 5/10) Start Date: 12/01/21 Status: Ordered LORazepam 1 mg oral tablet Start Date: 12/01/21 Status: Ordered Mag-G 500 mg oral tablet 2 tab, Oral, Daily, # 180 tab, 6 Refill(s), Pharmacy: [facility] Start Date: 02/08/22 Status: Ordered omeprazole 20 mg oral delayed release capsule 20 mg = 1 cap, Oral, Daily, PRN other (see comment), as needed Start Date: 12/01/21 Status: Ordered PreviDent 5000 Booster 1.1% topical paste Topical, every night at bedtime, [place] teeth, swish for 30 seconds, then spit out Start Date: 12/01/21 Status: Ordered Tylenol PRN other (see comment), [...] Body Site Status Hip replacement 1 04/14/09 [facility] ed Orthopedic surgery 2 Comp leted Tonsillectomy Completed 1Right 2right IP joint fusion Vital Signs Most recent to oldest [Reference Range]: 1 Temperature Temporal Artery [36-38 Deg C ] 36.8 Deg C (03/27/22 11:35 AM) Peripheral Pulse Rate [60-100 bpm] 68 bp m (03/27/22 11:35 AM) Respiratory Rate [12-24 br/min] 16 br/mi n (03/27/22 11:35 AM) Blood Pressure [90-140/60-90 mmHg] 136/8 0mmHg (03/27/22 11:35 AM) Weight Dosing 81.00 kg (03/27/22 11:48 AM) Weight Estimated 81.00 kg (03/27/22 11:35 AM) Height/Length Dosing 180.000 cm (03/27/22 11:48 AM) Height/Length Estimated 180.000 cm (03/27/22 11:35 AM) Social History Social History Type Response Tobacco Never tobacco user T obacco Use:. Sex Male Hospital Discharge Instructions Patient Education 03/27/2022 12:11:23 Spinal Headache Spinal Headache A spinal headache is a severe headache that can happen after a person has had a lumbar puncture or epidural anesthesia. During these procedures, a needle is passed between the bones of the spine. Theheadache usually starts from a few hours to 1???2 days after that. The headache can last for a few days. In rare cases, it can last for more than a week. What are the causes? This condition is caused by a leak of spinal fluid from the spine through the hole that is left by the needle. What are the signs or symptoms? Symptoms of this condition include: ??? A severe headache. ??? A headache that is worse when you sit or stand and better when you lie down. ??? Neck pain and stiffness, especially when tilting your chin toward your chest. ??? Nausea and vomiting. How is this diagnosed? This condition is usually diagnosed based on: ??? Your medical history. ??? Your symptoms. ??? A CT scan or MRI of the brain to help rule out other conditions. How is this treated? Treatment for this condition may include: ??? Replacing fluids that leaked out through the needle hole. Fluids may be replaced by: ??? Drinking more fluids.? Getting fluids through an IV line that is inserted into one of your veins. ??? Caffeine to help reduce your headache. Your health care provider may recommend drinking caffeinated beverages such as soda, coffee, or tea. ??? Having an epidural blood patch procedure. In this procedure, a small amount of your blood is injected into the area of the leak in order to seal it. ??? Medicines for pain. ??? Resting and lying flat for a few days. Follow these instructions at home: ??? Take vtqj-anb-rmovdwx and prescription medicines only as told by your health care provider. ??? Drink enough fluids to keep your urine pale yellow. ??? Drink caffeinated beverages as told by your health care provider. ??? Lie down to relieve pain if your pain gets worse when you sit or stand. ??? Return to your normal activities as told by your health care provider. Ask your health care provider what activities are safe for you. ??? Keep all follow-up visits as told by your health care provider. This is important. Contact a health care provider if: ??? You develop nausea and vomiting. Get help right away if: ??? Your pain becomes very severe. ??? Your pain cannot be controlled. ??? You develop a fever. ??? You have a stiff neck. ??? You develop problems with your vision. ??? You lose control of your bowel or bladder (have incontinence). ??? You have trouble walking, you feel weak, or you lose feeling in part of your body. Summary ??? A spinal headache is a severe headache that can happen after a person has had a lumbar punctureor epidural anesthesia. ??? This condition is caused by a leak of spinal fluid from the spine through the hole that is leftby the needle. The headache can last for a few days. In rare cases, it lasts for more than a week. ??? Supportive measures, such as drinking more fluid and taking pain medicines, are usually recommended. In some cases, it may be necessary to inject a small amount of your blood to seal the leak. This information is not intended to replace advice given to you by your health care provider. Make sure you discuss any questions you have with your health care provider. Document Revised: 07/13/2021 Document Reviewed: 05/14/2018 Elsevier Patient Education ?? 2021 [employer]. Follow Up Care 03/27/2022 11:35:34 With:Bernardo Brewer MD Address: [address] [address] [phone] When:1 month Physician Emergency department Note * Sumeet Carrillo MD: PERFORM Event Display: ED Note Physician Authored Date: [id number] SAJAN VALENCIA :1945 Age:76 years Sex:Male Visit Date:03/27/2022 Primary Care Physician: Bernardo Brewer MD Basic Information Time Seen: Sumeet Carrillo MD / 03/27/2022 11:42 Chief Complaint I have the same thing wrong as yesterday. I have a headache. All the same symptoms as yesterday and the last several months. ??My blood pressure is low this morning. ??[place] PCP sent me. History Of Present Illness: 76-year-old male??past medical history reflux,??Parkinson's,??hyperlipidemia, epilepsy presents with??headache. ??Patient states that he??has had the same headache for??many years and has not changed. ??He had a lumbar puncture done yesterday in the ER as a part of a work-up for??MRI findings concerning for pseudotumor.?? Patient sent home last night reports a headache today but the headache is??the same headache he has been dealing with for many years.?? Sometimes worse with positional changesand sometimes better with laying down but this is nothing new for him.?? He came in because he called the??nurse and the primary care office and said he had a low blood pressure reading??and had persi stent symptoms. ??Patient denies any chest pain shortness of breath abdominal pain nausea vomiting??fevers or any other new symptoms at this time.?? Reports generalized weakness for many weeks. Review of Systems: Constitutional:?No??fevers,?No??chills,?No??sweats, does have generalized weakness Eye:?No??recent visual problems ENT:?No??ear pain,?No??nasal congestion,?No??sore throat Respiratory:?No??shortness of breath,?No??cough Cardiovascular:?No??Chest pain,?No??palpitations,?No??syncope Gastrointestinal:?Nonausea,?No??vomiting,?No??diarrhea Genitourinary:?No??hematuria Parveen/Lymph:?No??bruising tendency,?No??swollen lymph glands Endocrine:?No??excessive thirst,??No??excessive hunger Musculoskeletal:??No??back pain,??No??neck pain,??No??joint pain,??No??muscle pain,??No??decreased range of motion Integumentary:?No??rash,?No??pruritus,?No??abrasions Neurologic: Alert & oriented X 4, has a headache Psychiatric:?No??anxiety,?No??depression Physical Exam Vitals & Measurements T:??36.8?C ??(Temporal Artery)?? HR:??68??(Peripheral)?? RR:??16?? BP:??136/80?? SpO2:??98%?? HT:??180.000??cm?? WT:??81.00??kg??(Estimated)?? O2 Therapy:??Room air?? General: Alert and oriented, well nourished,?No??acute distress Eye: PERRL, EOMI,?Normal??conjunctiva HENT: Normocephalic, clear tympanic membranes,?Normal?? hearing, moist oral mucosa,?No??scleral icterus,?No??sinus tenderness Neck: Supple, non-tender,?No??carotid bruits,?No??JVD,?No??lymphadenopathy Lungs: Clear to auscultation and percussion,?Non-labored?? respiration Heart:?Normal?? rate,?Regular??rhythm,?No??murmur,?No??gallop,?No??edema Abdomen: Soft, non-tender, non-distended,?Normal?? bowel sounds,?No??masses Musculoskeletal:?Normal?? range of motion and strength,?No??tenderness,?No??swelling Skin: Skin is warm, dry and pink,?No??rashes,?No??lesions Neurologic: Awake, alert and oriented X4, CN II-XII intact Psychiatric: Cooperative, appropriate mood and affect Mental status/cognitive: Awake alert, answers questions appropriately alert to self, time and month, able to recall current events, recall of words 3/3 Cranial nerves CN II-vision grossly intact, PERRLA CN III, IV, -EOMI CN V-V1-3 dermatomes intact to light touch CN VII-no facial asymmetry CN IX, X-uvula midline CN XI-shoulder shrug 5/5 bilaterally, head turning equally bilaterally against resistance CN XII-normal tongue movement, no atrophy, no fasciculations, no weakness Motor: Normal muscle bulk, normal tone, no pronator drift. Strength 5/5 throughout all muscle groups in all 4 extremities. Able to move all extremities without difficulty Sensory: Sensation grossly intact to light touch in all 4 extremities Gait: Able to stand without assistance, normal gait Cerebellar: No nystagmus, normal vivriv-yi-wgkv and finger to finger test (no dysmetria), normal rapid alternating movements (no dysdiadochokenesia, normal uewa-jg-uwuz test, normal gait Medical Decision Makin-year-old male presents with??headache, generalized weakness.?? 36.8, 136/80, 60, 16, 98%. ??He has a normal neurologic exam.?? Patient was in the ER yesterday for evaluation of??headache and some general chronic weakness and debility, all in the setting of a recent ER visit before this that had a CT??scanning around the orbits that??recommended follow-up MRI of the orbits.?? MRI with and without contrast of brain with orbits was obtained yesterday,??read was??consistent with a normal variantversus pseudotumor cerebri.?? Given the findings, lumbar puncture was performed to evaluate for CSFstudies and opening pressure, opening pressure was normal, CSF studies were normal. ??Patient has pe rsistent headache today,??post LP headache was considered??as patient states that headache does occasionally get??better with laying down??however??this is the same??thing that he has had for many years, and clinically it is very difficult to tell whether this is a??part of his chronic headache or a post LP headache. ??Given that he is adamant that his headache is not any different than what he typically has,??we will not recommend blood patch at this time, was given return precautions regarding a post LP headache.?? As for his chronic weakness??complaints, he had a normal??cardiac evaluationyesterday??and other labs were unremarkable.?? This seems to be a more chronic issue for him??and in the acute setting he is appropriate for discharge home.?? Spoke with Dr. Nichols's office, they can see him tomorrow??at 3:30 PM. ??Patient given return precautions the ER, discharged stable condition. Procedure No Qualifying Data Assessment/Plan 1.??Headache??R51.9 Ordered: Discharge Patient, 03/27/22 13:08:00 EST, Home Independently, Constant Indicator ?? Orders: Cerebrospinal Fluid Culture, Cerebrospinal Fluid, Stat collect, ST - Stat, 03/26/22 20:17:00 EST, Once, Nurse collect Patient Education Spinal Headache Follow Up With When Contact Information [facility], Bernardo Le MD Within [address] [address] [phone] Additional Instructions: Medication Reconciliation Unchanged acetaminophen (Tylenol)as needed other (see comment). as needed. ?? amoxicillin (amoxicillin 500 mg oral capsule)4 Capsules Oral (given by mouth) As Directed. Take onehour before dental appointment. ?? carbidopa-levodopa (carbidopa-levodopa 25 mg-100 mg oral tablet)1.5 tab Oral (given by mouth) 3 times a day. ?? cholecalciferol (Vitamin D3) ?? fludrocortisone (fludrocortisone 0.1 mg oral tablet)1 tab Oral (given by mouth) every day. ?? fluoride topical (PreviDent 5000 Booster 1.1% topical paste)Topical (on the skin) every night at bedtime. [place] teeth, swish for 30 seconds, then spit out. ?? gabapentin (gabapentin 100 mg oral capsule)1 Capsules Oral (given by mouth) every day. take 1 capsule at bedtime.. ?? ketorolac (ketorolac 10 mg oral tablet)TAKE 1 TABLET BY MOUTH DAILY (DO NOT TAKE MORE THAN 2 TABLETS PER WEEK FOR HEADACHE PAIN> 5/10); as needed pain. ?? LORazepam (LORazepam 1 mg oral tablet) ?? magnesium gluconate (Mag-G 500 mg oral tablet)2 tab Oral (given by mouth) every day. Refills: 6. ?? magnesium gluconate (magnesium gluconate 500 mg oral tablet)2 tab Oral (given by mouth) every day. ?? mirabegron (Myrbetriq 25 mg oral tablet, extended release)1 tab Oral (given by mouth) every day. donot crush or chew. ?? omega-3 polyunsaturated fatty acids (Chetopa-3 Fish Oil)Oral (given by mouth) every day. ?? omeprazole (omeprazole 20 mg oral delayed release capsule)1 Capsules Oral (given by mouth) every day as needed other (see comment). as needed. ?? PHENobarbital (PHENobarbital 30 mg oral tablet)2 tab Oral (given by mouth) every evening. Problem List/Past Medical History Ongoing Carpal tunnel syndrome Cervical spondylosis Chest pain Depressed Disturbance in speech Gastroesophageal reflux disease Generalized epilepsy Hemorrhoids History of hypotension Hyperlipidemia Hypersomnia Lesion of ulnar nerve Obstructive sleep apnea syndrome Osteoarthritis Palpitations Parkinson's disease Periodic limb movement disorder PLMD (periodic limb movement disorder) Historical Carpal tunnel syndrome of right wrist Procedure/Surgical History ???Hip replacement (04/15/2009)???Orthopedic surgery???Tonsillectomy Allergies Seasonal No Known Medication Allergies Social History Alcohol Never Electronic Cigarette/Vaping Electronic Cigarette Use: Never. Home/Environment Lives with Spouse. Living situation: Home/Independent. Nutrition/Health Caffeine intake amount: 1 c coffee a day. Substance Use Never Tobacco Never tobacco user Tobacco Use:. Electronically Signed on 03/27/22 01:11 PM Sumeet Carrillo MD Emergency department Discharge instructions * Sumeet Carrillo MD: PERFORM Event Display: ED Discharge Information Authored Date: [id number] SAJAN VALENCIA :1945 Age:76 years Sex:Male Visit Date:03/27/2022 Primary Care Physician: Bernardo Brewer MD Discharge Instructions We would like to thank you for allowing us to assist you with your healthcare needs. The following includes patient education materials and information regarding your injury/illness. Diagnosis from Today's Visit Headache Discharge Vitals Temperature??(Temporal Artery) 98.2 ??F (36.8 ??C) Heart Rate??(Peripheral) 68 Respiratory Rate?? 16 Blood Pressure?? 136/80?? Height?? 70.87 in (180.000 cm) Weight??(Estimated) 178.61 lb (81.00 kg) Allergies Seasonal No Known Medication Allergies What to Do Next You Need to Schedule the Following Appointments Follow Up with??Bernardo Brewer MD When:??Within 1 month Where: [address] [address] [phone] Upcoming Scheduled Appointments Saturday 8:00 AM EDT ?? You were treated today on an emergency [...] Emergency Department. Medications What How Much When Instructions Next Dose Unchanged acetaminophen (Tylenol) As needed for other (see comment) as needed ?? Unchanged amoxicillin (amoxicillin 500 mg oral capsule) 4 Capsules Oral (given by mouth) As Directed Take one hour before dental appointment ?? Unchanged carbidopa-levodopa (carbidopa-levodopa 25 mg-100 mg oral tablet) 1.5 tab Oral (given by mouth) 3 times a day Unchanged cholecalciferol (Vitamin D3) Unchanged fludrocortisone (fludrocortisone 0.1 mg oral tablet) 1 tab Oral (given by mouth) Every day Unchanged fluoride topical (PreviDent 5000 Booster 1.1% topical paste) Topical (on the skin) Every night at bedtime [place] teeth, swish for 30 seconds, then spit out ?? Unchanged gabapentin (gabapentin 100 mg oral capsule) 1 Capsules Oral (given by mouth) Every day take 1 capsule at bedtime. ?? Unchanged ketorolac (ketorolac 10 mg oral [...] gluconate (magnesium gluconate 500 mg oral tablet) 2 tab Oral (given by mouth) Every day Unchanged mirabegron (Myrbetriq 25 mg oral tablet, extended release) 1 tab Oral (given by mouth) Every day do not crush or chew ?? Unchanged omega-3 polyunsaturated fatty acids (Chetopa-3 Fish Oil) Oral (given by mouth) Every day Unchanged omeprazole (omeprazole 20 mg oral delayed release capsule) 1 Capsules Oral (given by mouth) Every day as needed for other (see comment) as needed ?? Unchanged PHENobarbital (PHENobarbital 30 mg oral tablet) 2 tab Oral (given by mouth) Every evening Education Materials Spinal Headache A spinal headache is a severe headache that can happen after a person has had a lumbar puncture or epidural anesthesia. During these procedures, a needle is passed between the bones of the spine. Theheadache usually starts from a few hours to 1???2 days after that. The headache can last for a few days. In rare cases, it can last for more than a week. What are the causes? This condition is caused by a leak of spinal fluid from the spine through the hole that is left by the needle. What are the signs or symptoms? Symptoms of this condition include: ? A severe headache. ? A headache that is worse when you sit or stand and better when you lie down. ? Neck pain and stiffness, especially when tilting your chin toward your chest. ? Nausea and vomiting. How is this diagnosed? This condition is usually diagnosed based on: ? Your medical history. ? Your symptoms. ? A CT scan or MRI of the brain to help rule out other conditions. How is this treated? Treatment for this condition may include: ? Replacing fluids that leaked out through the needle hole. Fluids may be replaced by: ? Drinking more fluids.? Getting fluids through an IV line that is inserted into one of your veins. ? Caffeine to help reduce your headache. Your health care provider may recommend drinking caffeinatedbeverages such as soda, coffee, or tea. ? Having an epidural blood patch procedure. In this procedure, a small amount of your blood is injected into the area of the leak in order to seal it. ? Medicines for pain. ? Resting and lying flat for a few days. Follow these instructions at home: ? Take hgcl-coz-uewxfti and prescription medicines only as told by your health care provider. ? Drink enough fluids to keep your urine pale yellow. ? Drink caffeinated beverages as told by your health care provider. ? Lie down to relieve pain if your pain gets worse when you sit or stand. ? Return to your normal activities as told by your health care provider. Ask your health care provider what activities are safe for you. ? Keep all follow-up visits as told by your health care provider. This is important. Contact a health care provider if: ? You develop nausea and vomiting. Get help right away if: ? Your pain becomes very severe. ? Your pain cannot be controlled. ? You develop a fever. ? You have a stiff neck. ? You develop problems with your vision. ? You lose control of your bowel or bladder (have incontinence). ? You have trouble walking, you feel weak, or you lose feeling in part of your body. Summary ? A spinal headache is a severe headache that can happen after a person has had a lumbar puncture or epidural anesthesia. ? This condition is caused by a leak of spinal fluid from the spine through the hole that is left by the needle. The headache can last for a few days. In rare cases, it lasts for more than a week. ? Supportive measures, such as drinking more fluid and taking pain medicines, are usually recommended. In some cases, it may be necessary to inject a small amount of your blood to seal the leak. This information is not intended to replace advice given to you by your health care provider. Make sure you discuss any questions you have with your health care provider. Document Revised: 07/13/2021 Document Reviewed: 05/14/2018 [employer] Patient Education ?? 2021 [employer] Patient/Dinkey Engine Firer Signature Patient Name:SAJAN VALENCIA I have received this information and my questions have been answered. Patient/Dinkey Engine Firer Name: Patient/Dinkey Engine Firer Signature: Relationship to Patient: Witness Name/Signature: Date: Electronically Signed on: 03/27/2022 13:11 ESTSigned by:[facility] Patient Care team information Personnel Name: Bernardo Brewer MD Address: Address: [address], [place] [address]
--- OUTSIDE RECORDS SUMMARY | 2023-11-13 12:54 | XMS_ITS | Continuity of Care Document ---
Author Organization [facility] or [facility] Address [address] [place] [address] Care Team Providers Care Md Do Resident Urgent Care Name Role Phone Bernardo Brewer Primary Care Physician Encounter [facility] Date(s): 10/03/23 - 10/03/23 [facility] [address] [place] [address] Encounter Diagnosis Obstructive sleep apnea syndrome(Discharge Diagnosis) - 10/03/23 Discharge Disposition: Home or Self Care Attending Physician: Erin Mckeon NP Referring Physician: Bernardo Brewer MD Allergies, Adverse Reactions, Alerts Substance Reaction Severity Status mixed grass pollens allergen extract 1 Unknown Se isaak Active Seasonal 2 Unknown Active 1Outside Source Comment: Hay Fever 2hay fever Assessment and Plan Extracted from: Title:Sleep Clinic - Office Visit Note Author:Erin Finnegan NP Date:10/03/23 1.??Obstructive sleep apnea syndrome??G47.33 I provided greater than??30??minutes in the care of this patient, more than half the time was spent in [id number] counseling. ?with comorbidities of?cervical spondylosis with radiculopathy, GERD, nocturnal generalized epilepsy (only ever occurred in past during his sleep, never when awake, under good control with Tegretol, no seizures for > 30 years), CAD. ? Clinical Data Reviewed: Oberlin Sleepiness Scale: 08/06 (09/2023) ?? Oberlin Sleepiness Scale: 12/06 (04/03/23) ? Machine Download Data:??Resmed AirSense 10 Auto CPAP? PAP Settings: ?? CPAP?? 5 CmH2O Date Range:?08/30/23 - 09/28/23 Days with Usage >=4 hours: 43%? Avg Usage per Day Used:?? 4hr 50min ? Median-90th%tile Leak?? 5.5/17.6 Avg Treatment ??AHI:?? 2.9/hr Central Apnea Index: 1.8/hr ? Sleep Clinical Timeline:? Seen on 12/23/17 for sleep consultation at kind request of Dr Antoine Ram, noted for loud snoring, nocturia 2 to 3 per night, crowded upper airway on exam, morning headaches, and excessive daytime sleepiness with ESS despite sleeping 8.5 hours per night. Also [...] 90% on Room Air; 0 Consecutive Minutes spent with SpO2 less than 88% on Room Air. [...] with significant arousals. PLM index 44.7/hr. PLM arousal index 6.8/hr. Patient? s bilateral leg EMGs showed frequent muscle fasciculation. [...] carbidopa/levodopa. He did meet with neurology in [place] and has a follow up MRI schedule [...] setting is recommended. 2.??Mask refit session via patient? s DME Company. ? 08/29/2022: Adjusted pressures remotely to TMS for fixed CPAP 5cm H20. Encourage pt to increase compliance. ?? 10/04/2022: Cont current pressure, working well to treat his KARLI. replace mask cushion d/t significant air leak, prefers supplies thru [employer]. ?? 04/03/2023: Patient is using and benefitting from CPAP therapy, has more energy during the day and sleeps well at night. Is having frequent awakenings at night to urinate, advise to f/u with urology. On carbidopa/levodopa for Parkinson's, follows with [facility] neurology. ? 07/31/2023: Echocardiogram at [facility]. Left ventricular size and systolic function is normal. Left ventricular ejection fraction is estimated visually at 65-70%. Mild aortic stenosis.? 10/03/2023: Pt feeling suffocated in the middle of the night, adjust CPAP to auto CPAP 5 to 7cm H20 for his comfort, monitor closely for treatment emergent central apnea events as pressures above 7cm H20 showed increase in events. ? Current Mask: ?? Resmed Airfit P10 nasal pillow with large inserts.? DME: [employer] ? Today's Assessment and Plan: ?? Jim??Gonzalez is a??very pleasant??77 year old male here??for 6 month??CPAP??follow??up.??Download data reviewed and??discussed with the patient.??He has??moderate??compliance and??he reports??using??his CPAP some. He does use it??21/30 days,??just not always for??4??hours. On fixed??5cm H20 CPAP, he??has a tx AHI of??2.9/hr.??He complains of??waking??up in??the middle of the??night feeling suffocated??and needs more??air.??I reviewed the??results of his titration study and will??make minor CPAP??pressure??changes??for his??comfort.??Will check his download??data in about 2 weeksfor evidence of treatment emergent??central??sleep??apnea. Discussed replacing his??PAP supplies regularly. ?? Follow up: ?? 6 months or??sooner if needed. ? Remote Scribed by Carl Ryder ? Future Appointments Immunizations Given and Recorded Vaccine [...] EXCESSIVE SALIVATION Start Date: 01/14/23 Status: Ordered cyanocobalamin 0 Refill(s) Start Date: [...] Daily, # 90 tab, 3 Refill(s), Pharmacy: [id number], 180, cm, 03/27/22 11:48:00 EST, Height/Length Dosing, 81, kg, 03/27/22 11:48:00 EST, Weight Dosing Start Date: 09/19/22 Stop Date: 09/14/23 Status: Ordered Gemtesa 75 mg oral tablet 75 mg = 1 tab, Oral, Daily, # 90 tab, 3 Refill(s), Pharmacy: [id number], 180.34, cm, 04/03/23 12:53:00 EST, Height, 80.74, kg, 04/03/23 12:56:00 EST, Weight Dosing Start Date: 04/10/23 Stop Date: 04/04/24 Status: Ordered Hair Skin and Nails oral [...] 2 tab, Oral, Daily, # 180 tab, 0 Refill(s), Pharmacy: [id number], 180.34, cm, 04/03/23 12:53:00 EST, Height, 80.74, kg, 04/03/23 12:56:00 EST, Weight Dosing Start Date: 04/10/23 Status: Ordered melatonin 3 mg oral tablet 3 mg = 1 tab, Oral, every day at bedtime, # 60 tab, 6 Refill(s), Pharmacy: [id number], 178, cm, 09/20/22 16:28:00 [...] topical paste Topical, every night at bedtime, [place] teeth, swish for 30 seconds, then spit [...] nxt month 11/10/18: seeing Dr Mcdonough at [facility] and she started him on gabapentin instead [...] 2 tabs nightly x3 days sent to [facility] pharmacy 07/20/2021. patient would like to come off of his phenobarbital, he [facility]: 02/13/2021: Patient is using and benefiting from CPAP 5 to 15 cm, however when he tried using the nasal mask, could not tolerate such high pressures and felt it was too much resistant to breathe against. We decided it was better for him to be on the full facemask AirFit F20 large. Of note he had to pay for the CPAP [id number] as insurance did not cover it based [...] Hip replacement 2 04/14/09 [facility] ed Orthopedic surgery 3 Comp leted Tonsillectomy Completed 1Temporal Artery Biopsy, Bilateral 2Right 3right IP joint fusion Vital Signs Most recent to oldest [Reference Range]: 1 Peripheral Pulse Rate [60-100 bpm] 73 bp m (10/03/23 8:15 AM) Blood Pressure [90-140/60-90 mmHg] 136/8 1mmHg (10/03/23 8:15 AM) Mean Arterial Pressure, Cuff [65-140 mmH g] 99 mmHg (10/03/23 8:15 AM) Weight 79.83 kg (10/03/23 8:15 AM) Weight Measured (lbs) 175.995 lb (10/03/23 8:15 AM) Weight Dosing 79.830 kg (10/03/23 8:15 AM) Height 178 cm (10/03/23 8:15 AM) Height/Length Measured (inches) 70.08 in ch (10/03/23 8:15 AM) BSA Measured 1.99 m2 (10/03/23 8:15 AM) Body Mass Index 25.2 kg/m2 (10/03/23 8:15 AM) Social History Social History Type Response Tobacco Former tobacco user Tobacco Use:. Sex Male Progress note * Benny Collado M: PERFORM Event Display: Progress Note - Physician Authored Date: [id number] Physician Outpatient Note * Erin Mckeon ACUPRESSURE THERAPIST: PERFORM Event Display: Office Clinic Note Physician Authored Date: [id number] JIM GONZALEZ :1945 Age:77 years Sex:Male Visit Date:10/03/2023 Primary Care Physician: Simone [facility], Bernardo Le MD Chief Complaint cpap compliance History of Present Illness 77 year old??male??here for sleep compliance. ?? TODAY: He states he is using his CPAP some.?? He is still waking up often at night to urinate. He has been seeing urologist Dr. Malone, but states that Dr. Malone??will be leaving seen. He was started on medication for his nocturia.? Sometimes he wakes up in the middle of the??night??feeling like he is suffocating and not getting enough air. He changes his mask supplies every time they send him a new one. Review of Systems A 10-point REVIEW OF SYSTEM was obtained and reviewed, includes CONSTITUTIONAL, EYES, NOSE, THROAT,RESPIRATORY, HEART, GASTROINTESTINAL, UROLOGIC, MUSCULOSKELETAL, PSYCHIATRY, SKIN systems. Pertinent symptoms are discussed in history, otherwise negative. Physical Exam Vitals & Measurements HR:??73??(Peripheral)?? BP:??136/81?? SpO2:??95%?? HT:??178??cm?? WT:??79.83??kg?? BMI:??25.2?? BSA:??1.99?? General:??well appearing, appearing stated age, no acute distress,??normal??build HEENT: atraumatic skull, anicteric RESPIRATORY: quiet respiration, able to speak in full sentences without dyspnea, no accessory muscle use SKIN: no facial skin rash, no facial skin lesions PSYCHIATRIC: well groomed, fluent speech, good insight, linear thought process, good eye contact,balanced??affect NEUROLOGIC: alert, oriented, symmetric facial expression Clinic Assessment/Plan 1.??Obstructive sleep apnea syndrome??G47.33 I provided greater than??30??minutes in the care of this patient, more than half the time was spentin galo-gr-izzi counseling. ?with comorbidities of??cervical spondylosis with radiculopathy, GERD, nocturnal generalized epilepsy (only ever occurred in past during his sleep, never when awake, under good control with Tegretol, no seizures for > 30 years), CAD. ? Clinical Data Reviewed: Oberlin Sleepiness Scale: 08/06 (09/2023) Oberlin Sleepiness Scale: 12/06 (04/03/23) ?? Machine Download Data:??Resmed AirSense 10 Auto CPAP? PAP Settings: ??CPAP?? 5 CmH2O Date Range:?08/30/23 - 09/28/23 Days with Usage >=4 hours: 43%? Avg Usage per Day Used:?? 4hr 50min Median-90th%tile Leak?? 5.5/17.6 Avg Treatment ??AHI:?? 2.9/hr Central Apnea Index: 1.8/hr ?? Sleep Clinical Timeline:? Seen on 12/23/17 for sleep consultation at [...] carbidopa/levodopa. He did meet with neurology in [place] and has a follow up MRI schedule [...] CPAP 5cm H20. Encourage pt to increase compliance. ?? 10/04/2022: Cont current pressure, working well to treat his KARLI. replace mask cushion d/t significant air leak, prefers supplies thru [employer]. ?? 04/03/2023: Patient is using and benefitting from CPAP therapy, has more energy during the day and sleeps well at night. Is having frequent awakenings at night to urinate, advise to f/u with urology. On carbidopa/levodopa for Parkinson's, follows with [facility] neurology. ?? 07/31/2023: E[facility]ocardi[facility] at [facility]. Left ventricular size and systolic function is normal. Left ventricular ejection fraction is estimated visually at 65-70%. Mild aortic stenosis.? 10/03/2023: Pt feeling suffocated in the middle of the night, adjust CPAP to auto CPAP 5 to 7cm H20for his comfort, monitor closely for treatment emergent central apnea events as pressures above 7cmH20 showed increase in events. ?? Current Mask: ?? Resmed Airfit P10 nasal pillow with large inserts.? DME: [employer] ? Today's Assessment and Plan: Jim??Gonzalez is a??very pleasant??77 year old male here??for 6 month??CPAP??follow??up.??Download data reviewed and??discussed with the patient.??He has??moderate??compliance and??he reports??using??his CPAP some. He does use it??21/30 days,??just not always for??4??hours. On fixed??5cm H20 CPAP, he??has a tx AHI of??2.9/hr.??He complains of??waking??up in??the middle of the??night feeling suffocated??and needs more??air.??I reviewed the??results of his titration study and will??make minor CPAP??pressure??changes??for his??comfort.??Will check his download??data in about 2 weeksfor evidence of treatment emergent??central??sleep??apnea. Discussed replacing his??PAP supplies regularly. ?? Follow up: 6 months or??sooner if needed. ? Remote Scribed by Carl Ryder Problem List/Past Medical History Ongoing Carcinoma of skin Carpal tunnel syndrome Cervical spondylosis Chest pain Depressed Disturbance in speech Dyspnea on exertion Gastroesophageal reflux disease Generalized epilepsy Giant cell arteritis Headache Hemorrhoids History of BPH History of hypotension History of right hip replacement Hyperlipidemia Hypersomnia Hypertension Lesion of ulnar nerve Low back pain Morbid obesity Obstructive sleep apnea syndrome Olecranon bursitis, left [...] (on the skin) Every night at bedtime [place] teeth, swish for 30 seconds, then spit [...] tab Oral (given by mouth) Every day Neurogenic bladder Duration: 90 Days Contact prescribing physician [...] Contact prescribing physician if questions or concerns ? What How Much When Comments Stop Taking carbidopa-levodopa (carbidopa-levodopa 25 mg-100 mg oral tablet) 1 tab Oral (given by mouth) 3 times a day Allergies mixed grass pollens allergen extract??(Unknown) Seasonal [...] vaccine, unspecifi 05/23/2020 Recorded Electronically Signed on 10/03/2023 09:21 EDT Erin Mckeon ACUPRESSURE THERAPIST Electronically Signed on 10/03/2023 09:18 EDT Carl Ryder Patient Care team information Care Team Personnel Name: Bernardo Brewer MD Position: No Access Member Role: Informed Provider Address: Address: [id number] [place] [address] Care Team Related Persons Name: LINDA GONZALEZ Address: Home [address] [place] [address], [phone]
--- OUTSIDE RECORDS SUMMARY | 2023-11-13 12:54 | XMS_ITS | Continuity of Care Document ---
Author Organization [facility] Address [address] [place] [address] Care Team Providers Care Director Of Consumer Marketing Name Role Phone [facility], Bernardo Le Primary Care Physician [facility] 04/06[facility]22 - 04/06/22 [facility] [address] [place] [address] Discharge Disposition: Home or Self Care Attending Physician: Scott Jimenez MD Admitting Physician: Scott Jimenez MD Referring Physician: Scott Jimenez MD Allergies, Adverse Reactions, Alerts No Known Medication Allergies Substance Reaction Severity Status Seasonal 1 Unknown Active 1hay fever Assessment and Plan Future Appointments Diagnostic Tests Pending * Surgical Pathology [facility] 04/06/22 Functional Status 04/06/22 ADLs Independent Family Member Travel History No recent t [...] Daily, # 180 tab, 6 Refill(s), Pharmacy: [id number] Start Date: 02/08/22 [...] topical paste Topical, every night at bedtime, [place] teeth, swish for 30 seconds, then spit [...] Body Site Status Hip replacement 1 04/14/09 Complet ed Orthopedic surgery 2 Comp leted Tonsillectomy Completed 1Right 2right IP joint fusion Vital Signs Most recent to oldest [Reference Range]: 1 2 3 Temperature Oral [35.8-37.3 Deg C] 36.5 Deg C (04/06/22 11:07 AM) Temperature Temporal Artery [36-38 Deg C] 36.2 Deg C (04/06/22 1:25 PM) 35.9 Deg C *LOW* (04/06/22 1:10 PM) Temperature Temporal Artery (DegF) [97.3-100 Deg F] 97.16 Deg F *LOW* (04/06/22 1:25 PM) 96.62 Deg F *LOW* (04/06/22 1:10 PM) Peripheral Pulse Rate [60-100 bpm] 72 bpm (04/06/22 2:25 PM) 69 bpm (04/06/22 2:10 PM) 67 bpm (04/06/22 1:40 PM) Heart Rate Monitored [60-100 bpm] 71 bpm (04/06/22 2:25 PM) 69 bpm (04/06/22 2:10 PM) 68 bpm (04/06/22 1:40 PM) Respiratory Rate [12-24 br/min] 20 br/min (04/06/22 2:25 PM) 18 br/min (04/06/22 2:10 PM) 11 br/min *LOW* (04/06/22 1:40 PM) Blood Pressure [90-140/60-90 mmHg] 157/86mmHg *HI* (04/06/22 2:25 PM) 167/94mmHg *HI* (04/06/22 2:10 PM) 145/79mmHg *HI* (04/06/22 1:40 PM) Mean Arterial Pressure, Cuff [65-140 mmHg] 110 mmHg (04/06/22 2:25 PM) 118 mmHg (04/06/22 2:10 PM) 101 mmHg (04/06/22 1:40 PM) Blood Pressure Location Left arm (04/06/22 11:07 AM) Blood Pressure Method Automatic (04/06/22 11:07 AM) Weight 79.4 kg (04/06/22 11:07 AM) Weight Estimated 81.00 kg (04/03/22 10:32 AM) Height 178 cm (04/06/22 11:07 AM) Social History Social History Type Response Tobacco Never tobacco user T obacco Use:. Sex Male Hospital Discharge Instructions Patient Education 04/06/2022 13:20:53 MK Postop Discharge POST- OPERATIVE DISCHARGE INSTRUCTIONS Follow-up in the [facility] office in about 2 weeks. Please call [phone] to schedule/confirm appointment. Wound Care No Dressing required. You may shower. Skin glue will fall off naturally approximately 2 weeks. No tub baths or swimming for 14 days. Report to your physician any leakage of pus from the incision or increased redness or swelling around the incision. Pain Control/Medications Take over the counter pain medication for pain control (acetaminophen AND ibuprofen can be taken simultaneously). If you need additional medication for pain control, please call the office. Miscellaneous Report any fever >101?? F. Report any problems with urination to your physician. For mild irritation at IV site: a. Apply warm, moist pack to area for 20 minutes four times a day for 2-3 days. b. Call doctor for persistent redness and/or drainage at IV site. In the event of any problems after surgery, do not hesitate to contact your doctor, [facility] , or the Emergency Room at [phone]. Follow Up Care 04/03/2022 08:53:44 With:Scott Jimenez MD Address: [place] [phone] When: only if needed Discharge instructions * Ashley Ryan RN: PERFORM Event Display: Discharge Instructions Authored Date: [id number] SAJAN VALENCIA :1945 Age:76 years Sex:Male Visit Date:04/06/2022 Primary Care Physician: Simone PANCHAL, Bernardo Le MD Hospital Discharge Instructions We would like to thank you for allowing us to assist you with your healthcare needs. The following includes patient education materials and information regarding your injury/illness. After you leave the hospital, you may get your health information including your test results, physician notes and discharge information by accessing your Patient Portal. Your Next Steps Discharge Orders Discharge Activity Restrictions, No Restrictions Discharge Diet Instruction, Regular home diet Discharge Patient Instructions, Take pain medication as prescribed and report to your physician pain which is not relieved by the pills. Discharge Patient Instructions, Report any fever >101?? F. Discharge Surgical Wound Instructions, No Dressing required. Patient may shower starting tomorrow. Scheduled Future Appointments Saturday 8:00 AM EDT ?? With: Matti SEGUNDOErin NP Where: [facility] [address] [place] [address] Status: Confirmed Follow Up Appointments Follow Up with??Scott Jimenez MD When:??Only if needed Where: [facility] [address] [place] [address]- Medications What How Much When Instructions Next Dose Unchanged acetaminophen (Tylenol) As needed for other (see comment) as needed ?? Unchanged amoxicillin (amoxicillin 500 mg oral capsule) 4 Capsules Oral (given by mouth) As Directed Take one hour before dental appointment ?? Unchanged aspirin (Aspirin Low Dose 81 mg oral delayed release tablet) Unchanged fludrocortisone (fludrocortisone 0.1 mg oral tablet) 30 EA, TAKE 1 TABLET BY MOUTH ONCE DAILY MAY REQUIRE FURTHER TITRATION ?? Unchanged fluoride topical (PreviDent 5000 Booster 1.1% topical paste) Topical (on the skin) Every night at bedtime [place] teeth, swish for 30 seconds, then spit [...] (magnesium gluconate 500 mg oral tablet) Unchanged mirabegron (Myrbetriq 50 mg oral tablet, extended release) 90 EA, TAKE 1 TABLET BY MOUTH ONCE DAILY ?? Unchanged omeprazole (omeprazole 20 mg oral delayed release capsule) 1 Capsules Oral (given by mouth) Every day as needed for other (see comment) as needed ?? Unchanged topiramate (topiramate 25 mg oral tablet) 60 EA, TAKE 1 TABLET BY MOUTH TWICE DAILY ?? Your Summary Your Care Team Admitting Physician - Scott Jimenez MD Attending Physician - Scott Jimenez MD Primary Care Physician - [facility], Bernardo Le MD Referring Physician - Scott Jimenez MD Education Materials POST- OPERATIVE DISCHARGE INSTRUCTIONS Follow-up in the [facility] office in about 2 weeks. Please call [phone] to schedule/confirm appointment. ? Wound Care No Dressing required. You may shower. Skin glue will fall off naturally approximately 2 weeks. No tub baths or swimming for 14 days. Report to your physician any leakage of pus from the incision or increased redness or swelling around the incision. ? Pain Control/Medications Take over the counter pain medication for pain control (acetaminophen AND ibuprofen can be taken simultaneously). If you need additional medication for pain control, please call the office. ? Miscellaneous Report any fever >101?? F. Report any problems with urination to your physician. For mild irritation at IV site: a. Apply warm, moist pack to area for 20 minutes four times a day for 2-3 days. b. Call doctor for persistent redness and/or drainage at IV site. In the event of any problems after surgery, do not hesitate to contact your doctor, [facility] , or the Emergency Room at [phone]. Patient Name:SAJAN VALENCIA I have received this information and my questions have been answered. Patient/Mathematical Engineer Name: Patient/Mathematical Engineer Signature: Relationship to Patient: Witness Name/Signature: Date: Electronically Signed on: 04/06/2022 14:21 ESTSigned by:EK History and physical note * Imani Rider: PERFORM Event Display: History and Physical Authored Date: SAJAN VALENCIA :1945 Age:76 years Sex:Male Primary Care Physician: Bernardo Brewer MD Patient was seen in the office on 04/03/2022 Electronically Signed on 04/05/22 03:11 PM Imani Rider Patient Care team information Personnel Name: Bernardo Brewer MD Address: Address: [address], [place] [address]
--- OUTSIDE RECORDS SUMMARY | 2023-11-13 12:54 | XMS_ITS | Continuity of Care Document ---
Author Organization [facility] Address [address] [place] [address] Care Team Providers Care Tools Developer Name Role Phone Primeau IPHCBernardo Primary Care Physician Encounter [facility] Date(s): 03/22/22 - 03/22/22 [facility] [address] [place] [address] Encounter Diagnosis Brain TIA(Discharge Diagnosis) - 03/22/22 Proptosis(Discharge Diagnosis) - 03/22/22 Transient cerebral ischemic attack, unspecified(Final) - Exostosis of right orbit(Final) - Other senior living (current) drug therapy(Final) - Discharge Disposition: Home or Self Care Attending Physician: Vaughn Groves MD Admitting Physician: Vaughn Groves MD Allergies, Adverse Reactions, Alerts No Known Medication Allergies Substance Reaction Severity Status Seasonal 1 Unknown Active 1hay fever Assessment and Plan Extracted from: Title:Clinical Document Author:Kasey Jain te:03/22/22 Diagnosis: 1. Brain TIA Comment: Diagnosis: 2. Proptosis Comment: Diagnosis: Eye problem Comment: Future Appointments Functional Status 03/22/22 Family Member Travel History No recent t [...] Daily, # 180 tab, 6 Refill(s), Pharmacy: [id number] Start Date: 02/08/22 Status: Ordered omeprazole 20 mg oral delayed release capsule 20 mg = 1 cap, Oral, Daily, PRN other (see comment), as needed Start Date: 12/01/21 Status: Ordered PreviDent 5000 Booster 1.1% topical paste Topical, every night at bedtime, [place] teeth, swish for 30 seconds, then spit [...] Body Site Status Hip replacement 1 04/14/09 [facility] ed Orthopedic surgery 2 Comp leted Tonsillectomy Completed 1Right 2right IP joint fusion Results Laboratory List Name Date Basic Metabolic Panel 03/22/22 CBC w/ Diff 03/22/22 Automated Diff 03/22/22 Most recent to oldest [Reference Range]: 1 WBC [5.0-10.0 x10^3/mcL] 6.2 x10^3/mcL (03/22/22 2:38 PM) RBC [4.6-6.0 x10^6/mcL] 5.1 x10^6/mcL (03/22/22 2:38 PM) Neutro Auto [40.0-75.0 %] 69.9 % (03/22/22 2:38 PM) Lymph Auto [20.0-50.0 %] 21.6 % (03/22/22 2:38 PM) [place] Auto [2.0-15.0 %] 7.8 % (03/22/22 2:38 PM) Basophil Auto [0.0-1.0 %] 0.2 % (03/22/22 2:38 PM) BUN [7-18 mg/dL] 18 mg/dL (03/22/22 2:38 PM) Glucose Level [74-106 mg/dL] 91 mg/dL (03/22/22 2:38 PM) Potassium Level [3.5-5.1 mmol/L] 3.7 mmo l/L (03/22/22 2:38 PM) MCV [80.0-96.0] 89.0 (03/22/22 2:38 PM) MCHC [31.0-35.0 g/dL] 34.0 g/dL (03/22/22 2:38 PM) Sodium Level [136-145 mmol/L] 140 mmol/L (03/22/22 2:38 PM) Hct [41.0-51.0 %] 45.3 % (03/22/22 2:38 PM) Calcium Level [8.5-10.1 mg/dL] 9.4 mg/dL (03/22/22 2:38 PM) MCH [26.0-32.0 pg] 30.3 pg (03/22/22 2:38 PM) Neutro Absolute 4.3 x10^3/mcL *NA* (03/22/22 2:38 PM) Hgb [14.0-18.0 g/dL] 15.4 g/dL (03/22/22 2:38 PM) Platelets [130-450 x10^3/mcL] 217 x10^3/ mcL (03/22/22 2:38 PM) CO2 [21-32 mmol/L] 30 mmol/L (03/22/22 2:38 PM) eGFR Non-AA [>=60] 64 (03/22/22 2:38 PM) eGFR AA [>=60] 64 (03/22/22 2:38 PM) Chloride Level [98-107 mmol/L] 102 mmol/ L (03/22/22 2:38 PM) RDW-CV [11.5-17.0 %] 11.8 % (03/22/22 2:38 PM) Imm Gran Auto [0.0-0.9 %] 0.2 % (03/22/22 2:38 PM) Creatinine Level [0.70-1.30 mg/dL] 1.18 mg/dL (03/22/22 2:38 PM) Eos, Auto [1.0-6.0 %] 0.3 % *LOW* (03/22/22 2:38 PM) Vital Signs Most recent to oldest [Reference Range]: 1 Temperature Temporal Artery [36-38 Deg C ] 36.8 Deg C (03/22/22 1:37 PM) Peripheral Pulse Rate [60-100 bpm] 82 bp m (03/22/22 1:37 PM) Respiratory Rate [12-24 br/min] 18 br/mi n (03/22/22 1:37 PM) Blood Pressure [90-140/60-90 mmHg] 179/9 6mmHg *HI* (03/22/22 1:37 PM) Weight Dosing 70.00 kg (03/22/22 1:57 PM) Weight Estimated 70.00 kg (03/22/22 1:37 PM) Height/Length Dosing 180.000 cm (03/22/22 1:57 PM) Height/Length Estimated 180.000 cm (03/22/22 1:37 PM) Social History Social History Type Response Tobacco Never tobacco user T obacco Use:. Sex Male Hospital Discharge Instructions Patient Education 03/22/2022 15:34:47 Transient Ischemic Attack Transient Ischemic Attack A transient ischemic attack (TIA) causes stroke-like symptoms that go away quickly. Having a TIA means that a person is at higher risk for a stroke. A TIA happens when blood supply to the brain is blocked temporarily. A TIA is a medical emergency. What are the causes? This condition is caused by a temporary blockage in an artery in the head or neck. This means the brain does not get the blood supply it needs. There is no permanent brain damage with a TIA. A blockage can be caused by: ??? Fatty buildup in an artery in the head or neck (atherosclerosis). ??? A blood clot. ??? An artery tear (dissection). ??? Inflammation of an artery (vasculitis). Sometimes the cause is not known. What increases the risk? Certain factors may make you more likely to develop this condition. Some of these are things that you can change, such as: ??? Obesity. ??? Using products that contain nicotine or tobacco. ??? Taking oral control, especially if you also use tobacco. ??? Not being active. ??? Heavy alcohol use. ??? Drug use, especially cocaine and methamphetamine. Medical conditions that may increase your risk include: ??? High blood pressure (hypertension). ??? High cholesterol. ??? Diabetes. ??? Heart disease (coronary artery disease). ??? An irregular heartbeat, also called atrial fibrillation (AFib). ??? Sickle cell disease. ??? Sleep problems (sleep apnea). ??? Chronic inflammatory diseases, such as rheumatoid arthritis or lupus. ??? Blood clotting disorders (hypercoagulable state). Other risk factors include: ??? Being over the age of 60. ??? Being male. ??? Family history of stroke. ??? Previous history of blood clots, stroke, TIA, or heart attack. ??? Having a history of preeclampsia. ??? Migraine headache. What are the signs or symptoms? Symptoms of a TIA are the same as those of a stroke. The symptoms develop suddenly, and then go away quickly. They may include: ??? Weakness or numbness in your face, arm, or leg, especially on one side of your body. ??? Trouble walking or moving your arms or legs. ??? Trouble speaking, understanding speech, or both (aphasia). ??? Vision changes, such as double vision, blurred vision, or loss of vision. ??? Dizziness. ??? Confusion. ??? Loss of balance or coordination. ??? Nausea and vomiting. ??? Severe headache. If possible, note what time your symptoms started. Tell your health care provider. How is this diagnosed? This condition may be diagnosed based on: ??? Your symptoms and medical history. ??? A physical exam. ??? Imaging tests, usually a CT scan or MRI of the brain. ??? Blood tests. You may also have other tests, including: ??? Electrocardiogram (ECG). ??? Echocardiogram. ??? Carotid ultrasound. ??? A scan of blood circulation in the brain (CT angiogram or MR angiogram). ??? Continuous heart monitoring. How is this treated? The goal of treatment is to reduce the risk for a stroke. Stroke prevention therapies may include: ??? Changes to diet and lifestyle, such as being physically active and stopping smoking. ??? Medicines to thin the blood (antiplatelets or anticoagulants). ??? Blood pressure medicines. ??? Medicines to reduce cholesterol. ??? Treating other health conditions, such as diabetes or AFib. If testing shows a narrowing in the arteries to your brain, your health care provider may recommenda procedure, such as: ??? Carotid endarterectomy. This is done to remove the blockage from your artery. ??? Carotid angioplasty and stenting. This uses a tube (stent) to open or widen an artery in the neck. The stent helps keep the artery open by supporting the artery azar. Follow these instructions at home: Medicines ??? Take dsnx-gav-ckgnuyc and prescription medicines only as told by your health care provider. ??? If you were told to take a medicine to thin your blood, such as aspirin or an anticoagulant, take it exactly as told by your health care provider. ??? Taking too much blood-thinning medicine can cause bleeding. Taking too little will not protect you against a stroke and other problems. Eating and drinking ??? Eat 5 or more servings of fruits and vegetables each day. ??? Follow guidelines from your health care provider about your diet. You may need to follow a certain diet to help manage risk factors for stroke. This may include: ??? Eating a low-fat, low-salt diet. ??? Choosing high-fiber foods. ??? Limiting carbohydrates and sugar. ??? If you drink alcohol: ??? Limit how much you have to: ??? 0???1 drink a day for women who are not . ??? 0???2 drinks a day for men. ??? Know how much alcohol is in a drink. In the [place] one drink equals one 12 oz bottle of beer (355mL), one 5 oz glass of wine (148mL), or one 1?? oz glass of hard liquor (44mL). General instructions ??? Maintain a healthy weight. ??? Try to get at least 30 minutes of exercise on most days. ??? Get treatment if you have sleep apnea. ??? Do not use any products that contain nicotine or tobacco. These products include cigarettes, chewing tobacco, and vaping devices, such as e-cigarettes. If you need help quitting, ask your health care provider. ??? Do not use drugs. ??? Keep all follow-up visits. This is important. Where to find more information ??? [place] St[employer] Association: www.stroke.org Get help right away if: ??? You have chest pain or an irregular heartbeat. ??? You have any symptoms of a stroke. BE FAST is an easy way to remember the main warning signs of a stroke. ??? B - Balance. Signs are dizziness, sudden trouble walking, or loss of balance. ??? E - Eyes. Signs are trouble seeing or a sudden change in vision. ??? F - Face. Signs are sudden weakness or numbness of the face, or the face or eyelid drooping on one side. ??? A - Arms. Signs are weakness or numbness in an arm. This happens suddenly and usually on one side of the body. ??? S - Speech. Signs are sudden trouble speaking, slurred speech, or trouble understanding what people say. ??? T - Time. Time to call emergency services. Write down what time symptoms started. ??? You have other signs of a stroke, such as: ??? A sudden, severe headache with no known cause. ??? Nausea or vomiting. ??? Seizure. These symptoms may represent a serious problem that is an emergency. Do not wait to see if the symptoms will go away. Get medical help right away. Call your local emergency services (911 in the [place] Do not drive yourself to the hospital. Summary ??? A transient ischemic attack (TIA) happens when an artery in the head or neck is blocked. The blockage clears before there is any permanent brain damage. A TIA is a medical emergency. ??? Symptoms of a TIA are the same as those of a stroke. The symptoms develop suddenly, and then goaway quickly. ??? Having a TIA means that you are at higher risk for a stroke. ??? The goal of treatment is to reduce your risk for a stroke. Treatment may include medicines to thin the blood and changes to diet and lifestyle. This information is not intended to replace advice given to you by your health care provider. Make sure you discuss any questions you have with your health care provider. Document Revised: 2020 Document Reviewed: 2020 [employer] Patient Education ?? 2021 [employer]. Follow Up Care 03/22/2022 13:37:02 With:Follow up with primary care provider Address: When:1 to 2 days Comments:You been seen in the emergency department and no emergent medical condition has been identified. ??It is recommended that you follow-up with your primary care provider within the next??48 hours. ??Ifyour condition worsens or you are unable to??arrange for appropriate follow-up please??reach out tot emergency department by phone or return to the emergency department for repeat evaluation. Physician Emergency department Note * Vaughn Groves MD: PERFORM Event Display: ED Note Physician Authored Date: [id number] VALENCIA SAJAN :1945 Age:76 years Sex:Male Visit Date:03/22/2022 Primary Care Physician: Bernardo Brewer MD Basic Information Time Seen: Vaughn Groves MD / 03/22/2022 14:07 Chief Complaint Headache for months and today starts with waves over the top of both eyes. Pt is 20/30 right, 20/20 left, and 20/20 both corrected. History Of Present Illness: Patient presents emergency department after going to??physical therapy for??treatment of his chronic headaches.?? Patient now states that he has a wavelike visual disturbance as far as he can tell inboth eyes.?? He also gives a history of several days ago having completely numbness of his left hand and slurred or garbled speech and that resolved after a period of??minutes. ?? 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 ??Review of his??MRI in the past demonstrates??at least some vascular disease??but he has not had a leny??stroke. ?? 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 His visual disturbances now resolved he has no neurologic complaints no aside from his headache which is chronic. Review of Systems: Constitutional:?No??fevers,?No??chills,?No??sweats Eye:?Positive for??recent visual problems ENT:?No??ear pain,?No??nasal congestion,?No??sore throat Respiratory:?No??shortness of breath,?No??cough Cardiovascular:?No??Chest pain,?No??palpitations,?No??syncope Gastrointestinal:?Nonausea,?No??vomiting,?No??diarrhea Genitourinary:?No??hematuria Parveen/Lymph:?No??bruising tendency,?No??swollen lymph glands Endocrine:?No??excessive thirst,??No??excessive hunger Musculoskeletal:??No??back pain,??No??neck pain,??No??joint pain,??No??muscle pain,??No??decreased range of motion Integumentary:?No??rash,?No??pruritus,?No??abrasions Neurologic: Alert & oriented X 4 Psychiatric:?No??anxiety,?No??depression Physical Exam Vitals & Measurements T:??36.8?C ??(Temporal Artery)?? HR:??82??(Peripheral)?? RR:??18?? BP:??179/96?? SpO2:??98%?? HT:??180.000??cm?? WT:??70.00??kg??(Estimated)?? O2 Therapy:??Room air?? General: Alert and oriented, well nourished,?No??acute distress Eye: PERRL, EOMI,?Normal??conjunctiva, significant right eye proptosis HENT: Normocephalic,??Normal?? hearing, moist oral mucosa,?No??scleral icterus Neck:??FROM,??No??JVD Lungs: Non-labored?? respiration Heart:?Normal?? rate,?Regular??rhythm,?No??peripheral edema, Adequate peripheral perfusion Abdomen: Soft, non-tender, non-distended,?Normal?? bowel sounds,?No??masses Musculoskeletal:?Normal?? range of motion and strength,?No??tenderness,?No??swelling Skin:??No??rashes,?No??lesions, Dry Neurologic: Awake, alert and oriented X4, CN II-XII intact, Steady Gait Psychiatric: Cooperative, appropriate mood and affect. Linear thought process Medical Decision Making: Neuro exam is normal at this time. ??Will obtain CT scan of the head and the orbit. ??He will likely need an MRI of both the brain and of the orbit to rule out??a lesion growing behind the significantly proptotic eye.?? Most likely had a TIA several days ago. ?? CT scan of the orbit did not show any obvious retrobulbar mass but did show some optic nerve dilation should be followed up with MRI.?? Main concern is that the patient had what sounds like a TIA??couple days ago.?? He has no sequelae now I instructed him to take a daily aspirin and to follow-upwith his primary care provider for MRI and??he understands that if he has any further neurologic symptoms he is to return immediately to the emergency room. Procedure No Qualifying Data Assessment/Plan 1.??Brain TIA??G45.9 CT scan??head pending 2.??Proptosis??H05.20 Unilateral concerning for mass Orders: CT Orbit Sella etc. or IAC w/ Cont, 03/22/22 14:26:00 EST, Stat, Reason: severe proptosis R, Transport Mode: Stretcher, Exam to be performed outside organization? Decision to Admit, 03/22/22 15:43:00 EST, Medical Unit Patient Education Transient Ischemic Attack Follow Up With When Contact Information Follow up with primary care provider Within 1 to 2 days Additional Instructions: You been seen in the emergency department and no emergent medical condition has been identified. ??It is recommended that you follow-up with your primary care provider withinthe next??48 hours. ??If your condition worsens or you are unable to??arrange for appropriate follow-up please??reach out to the emergency department by phone or return to the emergency department for repeat evaluation. Medication Reconciliation Unchanged acetaminophen (Tylenol)as needed other [...] (on the skin) every night at bedtime. [place] teeth, swish for 30 seconds, then spit [...] or chew. ?? omega-3 polyunsaturated fatty acids ([place]ount[place]-3 Fish Oil)Oral (given by mouth) every day. [...] Never Tobacco Never tobacco user Tobacco Use:. Lab Results CBC and Differential?? LATEST RESULTS?? HISTORICAL RESULTS?? WBC?? 03/22/22 14:38?? 6.2?? 03/20/22?? 6.4?? RBC?? 03/22/22 14:38?? 5.1?? 03/20/22?? 4.8?? Hgb?? 03/22/22 14:38?? 15.4?? 03/20/22?? 14.6?? Hct?? 03/22/22 14:38?? 45.3?? 03/20/22?? 42.7?? MCV?? 03/22/22 14:38?? 89.0?? 03/20/22?? 88.4?? MCH?? 03/22/22 14:38?? 30.3?? 03/20/22?? 30.2?? MCHC?? 03/22/22 14:38?? 34.0?? 03/20/22?? 34.2?? RDW-CV?? 03/22/22 14:38?? 11.8?? 03/20/22?? 11.9?? Platelets?? 03/22/22 14:38?? 217?? 03/20/22?? 205?? Neutro Auto?? 03/22/22 14:38?? 69.9? Lymph Auto?? 03/22/22 14:38?? 21.6? [place] Auto?? 03/22/22 14:38?? 7.8? Eos, Auto?? 03/22/22 14:38?? 0.3 ??Low? Basophil Auto?? 03/22/22 14:38?? 0.2? Imm Gran Auto?? 03/22/22 14:38?? 0.2? Neutro Absolute?? 03/22/22 14:38?? 4.3? Routine Chemistry?? LATEST RESULTS?? Sodium Level?? 03/22/22 14:38?? 140?? Potassium Level?? 03/22/22 14:38?? 3.7?? Chloride Level?? 03/22/22 14:38?? 102?? CO2?? 03/22/22 14:38?? 30?? BUN?? 03/22/22 14:38?? 18?? Glucose Level?? 03/22/22 14:38?? 91?? Creatinine Level?? 03/22/22 14:38?? 1.18?? eGFR AA?? 03/22/22 14:38?? 64?? eGFR Non-AA?? 03/22/22 14:38?? 64?? Calcium Level?? 03/22/22 14:38?? 9.4? Electronically Signed on 03/22/22 04:36 PM Vaughn Groves MD Emergency department Discharge instructions * Vaughn Gorves MD: PERFORM Event Display: ED Discharge Information Authored Date: [id number] ERIK SAJAN :1945 Age:76 years Sex:Male Visit Date:03/22/2022 Primary Care Physician: Bernardo Brewer MD Discharge Instructions We would like to thank you for allowing us to assist you with your healthcare needs. The following includes patient education materials and information regarding your injury/illness. Diagnosis from Today's Visit Brain TIA Proptosis Discharge Vitals Temperature??(Temporal Artery) 98.2 ??F (36.8 ??C) Heart Rate??(Peripheral) 82 Respiratory Rate?? 18 Blood Pressure?? 179/96?? Height?? 70.87 in (180.000 cm) Weight??(Estimated) 154.35 lb (70.00 kg) Allergies Seasonal No Known Medication Allergies What to Do Next You Need to Schedule the Following Appointments Follow Up with??Follow up with primary care provider When:??Within 1 to 2 days Why: You been seen in the emergency department and no emergent medical condition has been identified. ??It is recommended that you follow-up with your primary care provider within the next??48 hours.??If your condition worsens or you are unable to??arrange for appropriate follow-up please??reach out to the emergency department by phone or return to the emergency department for repeat evaluation. Upcoming Scheduled Appointments Saturday 8:00 AM EDT [...] (on the skin) Every night at bedtime [place] teeth, swish for 30 seconds, then spit [...] chew ?? Unchanged omega-3 polyunsaturated fatty acids (Bountiful-3 Fish Oil) Oral (given by mouth) Every day Unchanged omeprazole (omeprazole 20 mg oral delayed release capsule) 1 Capsules Oral (given by mouth) Every day as needed for other (see comment) as needed ?? Unchanged PHENobarbital (PHENobarbital 30 mg oral tablet) 2 tab Oral (given by mouth) Every evening Education Materials Transient Ischemic Attack A transient ischemic attack (TIA) causes stroke-like symptoms that go away quickly. Having a TIA means that a person is at higher risk for a stroke. A TIA happens when blood supply to the brain is blocked temporarily. A TIA is a medical emergency. What are the causes? This condition is caused by a temporary blockage in an artery in the head or neck. This means the brain does not get the blood supply it needs. There is no permanent brain damage with a TIA. A blockage can be caused by: ? Fatty buildup in an artery in the head or neck (atherosclerosis). ? A blood clot. ? An artery tear (dissection). ? Inflammation of an artery (vasculitis). Sometimes the cause is not known. What increases the risk? Certain factors may make you more likely to develop this condition. Some of these are things that you can change, such as: ? Obesity. ? Using products that contain nicotine or tobacco. ? Taking oral control, especially if you also use tobacco. ? Not being active. ? Heavy alcohol use. ? Drug use, especially cocaine and methamphetamine. Medical conditions that may increase your risk include: ? High blood pressure (hypertension). ? High cholesterol. ? Diabetes. ? Heart disease (coronary artery disease). ? An irregular heartbeat, also called atrial fibrillation (AFib). ? Sickle cell disease. ? Sleep problems (sleep apnea). ? Chronic inflammatory diseases, such as rheumatoid arthritis or lupus. ? Blood clotting disorders (hypercoagulable state). Other risk factors include: ? Being over the age of 60. ? Being male. ? Family history of stroke. ? Previous history of blood clots, stroke, TIA, or heart attack. ? Having a history of preeclampsia. ? Migraine headache. What are the signs or symptoms? Symptoms of a TIA are the same as those of a stroke. The symptoms develop suddenly, and then go away quickly. They may include: ? Weakness or numbness in your face, arm, or leg, especially on one side of your body. ? Trouble walking or moving your arms or legs. ? Trouble speaking, understanding speech, or both (aphasia). ? Vision changes, such as double vision, blurred vision, or loss of vision. ? Dizziness. ? Confusion. ? Loss of balance or coordination. ? Nausea and vomiting. ? Severe headache. If possible, note what time your symptoms started. Tell your health care provider. How is this diagnosed? This condition may be diagnosed based on: ? Your symptoms and medical history. ? A physical exam. ? Imaging tests, usually a CT scan or MRI of the brain. ? Blood tests. You may also have other tests, including: ? Electrocardiogram (ECG). ? Echocardiogram. ? Carotid ultrasound. ? A scan of blood circulation in the brain (CT angiogram or MR angiogram). ? Continuous heart monitoring. How is this treated? The goal of treatment is to reduce the risk for a stroke. Stroke prevention therapies may include: ? Changes to diet and lifestyle, such as being physically active and stopping smoking. ? Medicines to thin the blood (antiplatelets or anticoagulants). ? Blood pressure medicines. ? Medicines to reduce cholesterol. ? Treating other health conditions, such as diabetes or AFib. If testing shows a narrowing in the arteries to your brain, your health care provider may recommenda procedure, such as: ? Carotid endarterectomy. This is done to remove the blockage from your artery. ? Carotid angioplasty and stenting. This uses a tube (stent) to open or widen an artery in the neck. The stent helps keep the artery open by supporting the artery azar. Follow these instructions at home: Medicines ? Take oczd-lss-bnsvuxq and prescription medicines only as told by your health care provider. ? If you were told to take a medicine to thin your blood, such as aspirin or an anticoagulant, take it exactly as told by your health care provider. ? Taking too much blood-thinning medicine can cause bleeding. Taking too little will not protect you against a stroke and other problems. Eating and drinking ? Eat 5 or more servings of fruits and vegetables each day. ? Follow guidelines from your health care provider about your diet. You may need to follow a certain diet to help manage risk factors for stroke. This may include: ? Eating a low-fat, low-salt diet. ? Choosing high-fiber foods. ? Limiting carbohydrates and sugar. ? If you drink alcohol: ? Limit how much you have to: ? 0???1 drink a day for women who are not . ? 0???2 drinks a day for men. ? Know how much alcohol is in a drink. In the [place] one drink equals one 12 oz bottle of beer (355mL), one 5 oz glass of wine (148mL), or one 1?? oz glass of hard liquor (44mL). General instructions ? Maintain a healthy weight. ? Try to get at least 30 minutes of exercise on most days. ? Get treatment if you have sleep apnea. ? Do not use any products that contain nicotine or tobacco. These products include cigarettes, chewing tobacco, and vaping devices, such as e-cigarettes. If you need help quitting, ask your health careprovider. ? Do not use drugs. ? Keep all follow-up visits. This is important. Where to find more information ? [place] [employer]: www.stroke.org Get help right away if: ? You have chest pain or an irregular heartbeat. ? You have any symptoms of a stroke. BE FAST is an easy way to remember the main warning signs of astroke. ? B - Balance. Signs are dizziness, sudden trouble walking, or loss of balance. ? E - Eyes. Signs are trouble seeing or a sudden change in vision. ? F - Face. Signs are sudden weakness or numbness of the face, or the face or eyelid drooping on one side. ? A - Arms. Signs are weakness or numbness in an arm. This happens suddenly and usually on one side of the body. ? S - Speech. Signs are sudden trouble speaking, slurred speech, or trouble understanding what peoplesay. ? T - Time. Time to call emergency services. Write down what time symptoms started. ? You have other signs of a stroke, such as: ? A sudden, severe headache with no known cause. ? Nausea or vomiting. ? Seizure. These symptoms may represent a serious problem that is an emergency. Do not wait to see if the symptoms will go away. Get medical help right away. Call your local emergency services (911 in the [place] Do not drive yourself to the hospital. Summary ? A transient ischemic attack (TIA) happens when an artery in the head or neck is blocked. The blockage clears before there is any permanent brain damage. A TIA is a medical emergency. ? Symptoms of a TIA are the same as those of a stroke. The symptoms develop suddenly, and then go away quickly. ? Having a TIA means that you are at higher risk for a stroke. ? The goal of treatment is to reduce your risk for a stroke. Treatment may include medicines to thin the blood and changes to diet and lifestyle. This information is not intended to replace advice given to you by your health care provider. Make sure you discuss any questions you have with your health care provider. Document Revised: 2020 Document Reviewed: 2020 Elsevier Patient Education ?? 2021 [employer] Tests Performed Lab Test Name Test Result Date/Time WBC 6.2 x10^3/mcL 03/22/2022 14:38 EST RBC 5.1 x10^6/mcL 03/22/2022 14:38 EST Hgb 15.4 g/dL 03/22/2022 14:38 EST Hct 45.3 % 03/22/2022 14:38 EST MCV 89.0 03/22/2022 14:38 EST MCH 30.3 pg 03/22/2022 14:38 EST MCHC 34.0 g/dL 03/22/2022 14:38 EST RDW-CV 11.8 % 03/22/2022 14:38 EST Platelets 217 x10^3/mcL 03/22/2022 14:38 EST Neutro Auto 69.9 % 03/22/2022 14:38 EST Lymph Auto 21.6 % 03/22/2022 14:38 EST [place] Auto 7.8 % 03/22/2022 14:38 EST Eos, Auto 0.3 % 03/22/2022 14:38 EST Basophil Auto 0.2 % 03/22/2022 14:38 EST Imm Gran Auto 0.2 % 03/22/2022 14:38 EST Neutro Absolute 4.3 x10^3/mcL 03/22/2022 14:38 EST Sodium Level 140 mmol/L 03/22/2022 14:38 EST Potassium Level 3.7 mmol/L 03/22/2022 14:38 EST Chloride Level 102 mmol/L 03/22/2022 14:38 EST CO2 30 mmol/L 03/22/2022 14:38 EST BUN 18 mg/dL 03/22/2022 14:38 EST Glucose Level 91 mg/dL 03/22/2022 14:38 EST Creatinine Level 1.18 mg/dL 03/22/2022 14:38 EST eGFR AA 64 03/22/2022 14:38 EST eGFR Non-AA 64 03/22/2022 14:38 EST Calcium Level 9.4 mg/dL 03/22/2022 14:38 EST Patient/Coat Baster Signature Patient Name:SAJAN VALENCIA I have received this information and my questions have been answered. Patient/Coat Baster Name: Patient/Coat Baster Signature: Relationship to Patient: Witness Name/Signature: Date: Electronically Signed on: 03/22/2022 16:36 ESTSigned by:ILSANDRA Discharge summary * Kasey Jain: PERFORM Event Display: Discharge Note Authored Date: * Kasey Jain: PERFORM Event Display: Discharge Note Authored Date: Diagnosis: 1. Brain TIA Comment: Diagnosis: 2. Proptosis Comment: Diagnosis: Eye problem Comment: Electronically Signed on 03/22/22 04:43 PM Kasey Jain Patient Care team information Personnel Name: Bernardo Brewer MD Address: Address: [address], [place] [address]
--- OUTSIDE RECORDS SUMMARY | 2023-11-13 12:54 | XMS_ITS | Continuity of Care Document ---
Author Organization [facility] Address [address] [place] [address] Care Team Providers Care Victims Advocate Clerk/Specialist Name Role Phone Bernardo Brewer Primary Care Physician [facility] - 04/01/[address] [id number] Discharge Disposition: Home or Self Care Attending [...] Daily, # 90 tab, 3 Refill(s), Pharmacy: [facility], 180, cm, 03/27/22 11:48:00 EST, [...] Daily, # 180 tab, 6 Refill(s), Pharmacy: [facility] Start Date: 02/08/22 Status: Ordered magnesium gluconate 500 mg oral tablet 0 Refill(s) Start Date: 04/03/22 Status: Ordered melatonin 3 mg oral tablet 3 mg = 1 tab, Oral, every day at bedtime, # 60 tab, 6 Refill(s), Pharmacy: [facility], 178, cm, 09/20/22 16:28:00 EDT, Height/Length Dosing, [...] topical paste Topical, every night at bedtime, [place] teeth, swish for 30 seconds, then spit [...] nxt month 11/10/18: seeing Dr Mcdonough at [facility] and she started him on gabapentin [...] 2 tabs nightly x3 days sent to [facility] 07/20/2021. patient would like to come off of his phenobarbital, he plans to discuss with neurology [facility] 07-26-2021 visit: 02/13/2021: Patient is using and benefiting from CPAP 5 to 15 cm, however when he tried using the nasal mask, could not tolerate such high pressures and felt it was too much resistant to breathe against. We decided it was better for him to be on the full facemask AirFit F20 large. Of note he had to pay for the CPAP [id number] as insurance did not cover it based [...] 1 04/05/22 Completed Hip replacement 2 04/14/09 [facility] Orthopedic surgery 3 Comp leted Tonsillectomy Completed 1Temporal Artery Biopsy, Bilateral 2Right 3right IP joint fusion Results Laboratory List Name Date Urinalysis with Microscopic 04/01/23 Urinalysis Microscopic 04/01/23 Most recent to oldest [Reference Range]: 1 UA Color Yellow (04/01/23 3:40 PM) UA WBC [0-3] 0-3 (04/01/23 3:40 PM) UA Urobilinogen Normal (04/01/23 3:40 PM) UA Bili [Negative] Negative (04/01/23 3:40 PM) UA Ketones Negative (04/01/23 3:40 PM) UA RBC [0-2] 0-2 (04/01/23 3:40 PM) UA Leuk Est Negative (04/01/23 3:40 PM) UA Nitrite Negative (04/01/23 3:40 PM) UA Glucose [Negative] Negative (04/01/23 3:40 PM) UA Bacteria None Seen /HPF (04/01/23 3:40 PM) UA Protein Negative (04/01/23 3:40 PM) UA Blood Negative (04/01/23 3:40 PM) UA Mucous None Seen /HPF (04/01/23 3:40 PM) UA Spec Grav <=1.005 *NA* (04/01/23 3:40 PM) UA Squam Epithelial [None Seen] None See n (04/01/23 3:40 PM) UA pH 6.5 *NA* (04/01/23 3:40 PM) UA Appear Clear (04/01/23 3:40 PM) UA Culture Ind?. Not Applicable (04/01/23 3:40 PM) Orders for Microbiology Reports Name Date Urine Culture 04/01/23 Microbiology Reports TEST:Urine Culture STATUS:Order in Progress BODY SITE: SOURCE:Urine, Clean Catch COLLECTED DATE/TIME:04/01/23 3:40 PM PRELIMINARY REPORT No growth at 24 hours. Social History Social History Type Response Tobacco Former tobacco user Tobacco Use:. Sex Male Patient Care team information Care Team Personnel Name: Bernardo Brewer MD Position: No Access Member Role: Informed Provider Address: Address: [address] [address]- Care Team Related Persons Name: LINDA VALENCIA Address: Home [address] [place] [address], [phone]
--- OUTSIDE RECORDS SUMMARY | 2023-11-13 12:54 | XMS_ITS | Continuity of Care Document ---
Author Organization [facility] Address [address] [place] [address] Care Team Providers Care Mapping Analyst Name Role Phone Primeau IPHCBernardo Primary Care Physician Encounter [facility] Date(s): 06/20/23 - 06/20/[address] [id number] Encounter Diagnosis Orthostatic hypotension(Discharge Diagnosis) - 06/20/23 Orthostatic hypotension(Final) - Chronic fatigue, unspecified(Final) - Other forms of dyspnea(Final) - Discharge Disposition: Home or Self Care Attending Physician: Bernardo Jackson MD Admitting Physician: Bernardo Jackson MD Allergies, Adverse Reactions, Alerts Substance Reaction Severity Status mixed grass pollens allergen extract 1 Unknown [place] Active Seasonal 2 Unknown Active 1Outside Source Comment: Hay Fever 2hay fever Assessment and Plan Extracted from: Title:ED Provider Note Author:Bernardo Jackson MD Date:06/20/23 1.??Orthostatic hypotension? ?I95.1 Ordered: Discharge Patient, 06/20/23 18:09:00 EST, Home Independently, Constant Indicator ?? Future Appointments Future Scheduled Tests Radiology* MRI Shoulder w/o Contrast Right 07/19/22 Functional Status 06/20/23 Family Member Travel History No recent t [...] Daily, # 90 tab, 3 Refill(s), Pharmacy: [id number], 180, cm, 03/27/22 11:48:00 EST, Height/Length Dosing, 81, kg, 03/27/22 11:48:00 EST, Weight Dosing Start Date: 09/19/22 Stop Date: 09/14/23 Status: Ordered Gemtesa 75 mg oral tablet 75 mg = 1 tab, Oral, Daily, # 90 tab, 3 Refill(s), Pharmacy: [facility], 180.34, cm, 04/03/23 12:53:00 EST, [...] Daily, # 180 tab, 0 Refill(s), Pharmacy: [facility], 180.34, cm, 04/03/23 12:53:00 EST, Height, 80.74, kg, 04/03/23 12:56:00 EST, Weight Dosing Start Date: 04/10/23 Status: Ordered melatonin 3 mg oral tablet 3 mg = 1 tab, Oral, every day at bedtime, # 60 tab, 6 Refill(s), Pharmacy: [id number], 178, cm, 09/20/22 16:28:00 EDT, [...] topical paste Topical, every night at bedtime, [place] teeth, swish for 30 seconds, then spit [...] 0 Refill(s) Start Date: 10/09/22 Status: Ordered Mental Status 06/20/23 Eye Opening Response Rodriguez Spontaneous ly Best Verbal Response Rodriguez Oriented Best Motor Response Raritan Obeys comman ds Raritan Coma Score 15 Problem List Condition Confirmation [...] nxt month 11/10/18: seeing Dr Mcdonough at [facility] and she started him on gabapentin instead [...] 2 tabs nightly x3 days sent to [facility] pharmacy 07/20/2021. patient would like to come off of his phenobarbital, he plans to discuss with neurology [facility] 07-26-2021 visit: 02/13/2021: Patient is using and benefiting from CPAP 5 to 15 cm, however when he tried using the nasal mask, could not tolerate such high pressures and felt it was too much resistant to breathe against. We decided it was better for him to be on the full facemask AirFit F20 large. Of note he had to pay for the CPAP [id number] as insurance did not cover it based [...] 04/05/22 Completed Hip replacement 2 04/14/09 [facility] ed Orthopedic surgery 3 Comp leted Tonsillectomy Completed 1Temporal Artery Biopsy, Bilateral 2Right 3right IP joint fusion Results Laboratory List Name Date Blood Gas Venous 06/20/23 Lactic Acid 06/20/23 CBC w/ Diff 06/20/23 Comprehensive Metabolic Panel (CMP) Magnesium Level 06/20/23 Urinalysis with Micro if Indicated and C ulture if Indicated 06/20/23 Automated Diff 06/20/23 Most recent to oldest [Reference Range]: 1 WBC [5.0-10.0 x10^3/mcL] 7.4 x10^3/mcL (06/20/23 2:11 PM) RBC [4.6-6.0 x10^6/mcL] 5.3 x10^6/mcL (06/20/23 2:11 PM) Neutro Auto [40.0-75.0 %] 63.9 % (06/20/23 2:11 PM) Lymph Auto [20.0-50.0 %] 25.9 % (06/20/23 2:11 PM) Peach Auto [2.0-15.0 %] 9.2 % (06/20/23 2:11 PM) Basophil Auto [0.0-1.0 %] 0.4 % (06/20/23 2:11 PM) BUN [7-18 mg/dL] 22 mg/dL *HI* (06/20/23 2:10 PM) UA Color Pale Yellow (06/20/23 2:10 PM) Glucose Level [74-106 mg/dL] 84 mg/dL (06/20/23 2:10 PM) Potassium Level [3.5-5.1 mmol/L] 4.2 mmo l/L (06/20/23 2:10 PM) MCV [80.0-96.0 fL] 85.2 fL (06/20/23 2:11 PM) UA Urobilinogen Normal (06/20/23 2:10 PM) UA Bili [Negative] Negative (06/20/23 2:10 PM) CO2 Total Venous 30 mmol/L *NA* (06/20/23 3:02 PM) UA Ketones Negative (06/20/23 2:10 PM) HCO3 Venous [22-30 mmol/L] 28 mmol/L (06/20/23 3:02 PM) AST [15-37 unit/L] 18 unit/L (06/20/23 2:10 PM) ALT [16-63 unit/L] 15 unit/L *LOW* (06/20/23 2:10 PM) MCHC [31.0-35.0 g/dL] 34.2 g/dL (06/20/23 2:11 PM) Sodium Level [136-145 mmol/L] 141 mmol/L (06/20/23 2:10 PM) UA Leuk Est Negative (06/20/23 2:10 PM) UA Nitrite Negative (06/20/23 2:10 PM) UA Glucose [Negative] Negative (06/20/23 2:10 PM) Hct [41.0-51.0 %] 45.3 % (06/20/23 2:11 PM) Calcium Level [8.5-10.1 mg/dL] 9.3 mg/dL (06/20/23 2:10 PM) Albumin Level [3.4-5.0 g/dL] 3.5 g/dL (06/20/23 2:10 PM) Protein Total [6.4-8.2 g/dL] 7.1 g/dL (06/20/23 2:10 PM) UA Protein Negative (06/20/23 2:10 PM) MCH [26.0-32.0 pg] 29.1 pg (06/20/23 2:11 PM) Magnesium Level [1.8-2.4 mg/dL] 2.1 mg/d L (06/20/23 2:10 PM) Neutro Absolute 4.7 x10^3/mcL *NA* (06/20/23 2:11 PM) Bilirubin Total [0.2-1.0 mg/dL] 0.7 mg/d L (06/20/23 2:10 PM) Hgb [14.0-18.0 g/dL] 15.5 g/dL (06/20/23 2:11 PM) Alk Phos [46-146 unit/L] 72 unit/L (06/20/23 2:10 PM) UA Blood Negative (06/20/23 2:10 PM) pCO2 Say [33-47 mmHg] 48 mmHg *HI* (06/20/23 3:02 PM) UA Spec Grav <=1.005 *NA* (06/20/23 2:10 PM) Platelets [130-450 x10^3/mcL] 256 x10^3/ mcL (06/20/23 2:11 PM) CO2 [21-32 mmol/L] 29 mmol/L (06/20/23 2:10 PM) Lactic Acid Lvl [0.7-2.0 mmol/L] <0.8 mm ol/L (06/20/23 3:02 PM) pO2 Say 41 mmHg *NA* (06/20/23 3:02 PM) UA pH 6.0 *NA* (06/20/23 2:10 PM) pH Say [7.32-7.43 pH unit(s)] 7.38 pH un it(s) (06/20/23 3:02 PM) O2 Sat Say 78 % *NA* (06/20/23 3:02 PM) eGFR Non-AA [>=60] 55 *LOW* (06/20/23 2:11 PM) eGFR AA [>=60] 55 *LOW* (06/20/23 2:11 PM) Base Excess Venous 2.4 mmol/L *NA* (06/20/23 3:02 PM) UA Appear Clear (06/20/23 2:10 PM) Chloride Level [98-107 mmol/L] 106 mmol/ L (06/20/23 2:10 PM) RDW-CV [11.5-14.5 %] 12.8 % (06/20/23 2:11 PM) Imm Gran Auto [0.0-0.9 %] 0.1 % (06/20/23 2:11 PM) Slide Review Not Indicated (06/20/23 2:11 PM) Creatinine Level [0.70-1.30 mg/dL] 1.33 mg/dL *HI* (06/20/23 2:10 PM) Eos, Auto [1.0-6.0 %] 0.5 % *LOW* (06/20/23 2:11 PM) Vital Signs Most recent to oldest [Reference Range]: 1 2 3 Temperature Temporal Artery [36-38 Deg C] 36.2 Deg C (06/20/23 1:33 PM) Peripheral Pulse Rate [60-100 bpm] 94 bpm (06/20/23 6:29 PM) 92 bpm (06/20/23 3:40 PM) 91 bpm (06/20/23 3:07 PM) Heart Rate Monitored [60-100 bpm] 90 bpm (06/20/23 6:29 PM) 89 bpm (06/20/23 3:40 PM) 83 bpm (06/20/23 3:07 PM) Respiratory Rate [12-24 br/min] 20 br/min (06/20/23 6:29 PM) 13 br/min (06/20/23 3:40 PM) 25 br/min *HI* (06/20/23 3:07 PM) Blood Pressure [90-140/60-90 mmHg] 161/94mmHg *HI* (06/20/23 3:40 PM) 145/98mmHg *HI* (06/20/23 1:33 PM) Mean Arterial Pressure, Cuff [65-140 mmHg] 116 mmHg (06/20/23 3:40 PM) 114 mmHg (06/20/23 1:33 PM) Weight 88 kg (06/20/23 1:33 PM) Weight Dosing 88.000 kg (06/20/23 1:33 PM) Height 71 cm (06/20/23 1:33 PM) Body Mass Index 174.57 kg/m2 (06/20/23 1:33 PM) Social History Social History Type Response Tobacco Former tobacco user Tobacco Use:. Sex Male Physician Emergency department Note * Bernardo Jackson MD: PERFORM Event Display: ED Note Physician Authored Date: [id number] SAJAN VALENCIA :1945 Age:77 years Sex:Male Visit Date:06/20/2023 Primary Care Physician: [facility], Bernardo Le MD Basic Information Time Seen: Bernardo Jackson MD / 06/20/2023 13:49 Chief Complaint Pt reports intermittent light headedness since last night. Denies chest pain/pressure or N/V/D. History Of Present Illness: Presenting concern is??dizziness.?? Time of onset is??4 AM.?? Patient got up to go to the bathroom and felt lightheaded.?? This recurred again at 6 AM with getting on the bed.?? He spent most of the morning in his chair. ??Because he feels??lightheaded with standing. Review of Systems: Review of systems is positive for chronic fatigue, mild dyspnea on exertion, chronic??nocturnal rhinorrhea,??urinary frequency, usual headache,.?? 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 Physical Exam Vitals & Measurements T:??36.2?C ??(Temporal Artery)?? HR:??92??(Peripheral)?? HR:??89??(Monitored)?? RR:??13?? BP:??161/94?? SpO2:??99%?? HT:??71??cm?? WT:??88??kg?? BMI:??174.57?? Pain Score:??3?? O2 Therapy:??Room air?? Orthostatic Vitals: Pulse Supine: 92 bpm (06/20/23 18:02:00) Pulse Sittin bpm (06/20/23 18:02:00) Pulse Standin bpm (06/20/23 18:02:00) Systolic Blood Pressure Supine: 139 mmHg (06/20/23 18:02:00) Diastolic Blood Pressure Supine: 89 mmHg (06/20/23 18:02:00) Systolic Blood Pressure Sittin mmHg (06/20/23 18:02:00) Diastolic Blood Pressure Sitting:??101 mmHg??High (06/20/23 18:02:00) Systolic Blood Pressure Standin mmHg (06/20/23 18:02:00) Diastolic Blood Pressure Standin mmHg (06/20/23 18:02:00) Normal breath sounds. ??Normal heart sounds. ??Normal mental status. ??Resting tremor right arm. ??Normal abdomen??normal extremities.?? Orthostatic blood pressures dropped from 137 systolic to 88??with no change in pulse.?? Urinary retention,??urinary tract infection??(long-term use), headache, bro nchitis??(long-term use),??nasopharyngitis, diarrhea, nausea,??upper respiratory infection, Procedure No Qualifying Data Assessment/Plan 1.??Orthostatic hypotension??I95.1 Ordered: Discharge Patient, 06/20/23 18:09:00 EST, Home Independently, Constant Indicator ?? Medication Reconciliation Unchanged acetaminophen (Tylenol)as needed other (see comment). as needed. ?? amoxicillin (amoxicillin 500 mg oral capsule)4 Capsules Oral (given by mouth) As Directed. Take onehour before dental appointment. ?? aspirin (Aspirin Low Dose 81 mg oral delayed release tablet) ?? atropine ophthalmic (atropine 1% ophthalmic solution)PLACE 1 TO 2 DROPS UNDER THE TONGUE UP TO THREE TIMES PER DAY NEEDED FOR EXCESSIVE SALIVATION. ?? carbidopa-levodopa (carbidopa-levodopa 25 mg-100 mg oral tablet)1 tab Oral (given by mouth) 3 timesa day. ?? cholecalciferol (Vitamin D3)every day. ?? cyanocobalamin ?? cyanocobalamin (Vitamin B-12 500 mcg oral tablet) ?? fludrocortisone (fludrocortisone 0.1 mg oral tablet)30 EA, TAKE 1 TABLET BY MOUTH ONCE DAILY MAY REQUIRE FURTHER TITRATION. ?? fluoride topical (PreviDent 5000 Booster 1.1% topical paste)Topical (on the skin) every night at bedtime. [place] teeth, swish for 30 seconds, then spit [...] Oral (given by mouth) every day. Refills: 0. ?? melatonin (melatonin 3 mg oral tablet)1 tab Oral (given by mouth) every night at bedtime. Refills: 6. ?? mirabegron (Myrbetriq 50 mg oral tablet, extended release)90 EA, TAKE 1 TABLET BY MOUTH ONCE DAILY. ?? multivitamin with minerals (Hair Skin and Nails oral tablet) ?? omega-3 polyunsaturated fatty acids (Fish Oil oral capsule)1 Capsules Oral (given by mouth) every day. ?? omeprazole (omeprazole 20 mg oral delayed release capsule)1 Capsules Oral (given by mouth) every day as needed other (see comment). as needed. ?? selegiline (selegiline 5 mg oral tablet)1 tab Oral (given by mouth) 2 times a day. ?? thiamine (Vitamin B1 100 mg oral tablet) ?? topiramate (topiramate 25 mg oral tablet)60 EA, TAKE 1 TABLET BY MOUTH TWICE DAILY. ?? vibegron (Gemtesa 75 mg oral tablet)1 tab Oral (given by mouth) every day for 90 Days. Refills: 3. ?? vibegron (Gemtesa 75 mg oral tablet)1 [...] (04/06/2022)???Hip replacement (04/15/2009)???Orthopedic surgery???Tonsillectomy Medication Administration Given 0.9% NaCl bolus, 1000 mL, Hydration Bolus 0.9% NaCl bolus, 1000 mL, Hydration Bolus Allergies mixed grass pollens allergen extract??(Unknown) Seasonal Social History Alcohol Never Electronic Cigarette/Vaping Electronic Cigarette Use: Never. Home/Environment Lives with Spouse. Living situation: Home/Independent. Nutrition/Health Caffeine intake amount: 1 c coffee a day. Substance Use Never Tobacco Former tobacco user Tobacco Use:. Lab Results CBC and Differential?? LATEST RESULTS?? HISTORICAL RESULTS?? WBC?? 06/20/23 14:11?? 7.4?? 03/26/22?? 5.9?? RBC?? 06/20/23 14:11?? 5.3?? 03/26/22?? 4.7?? Hgb?? 06/20/23 14:11?? 15.5?? 03/26/22?? 14.2?? Hct?? 06/20/23 14:11?? 45.3?? 03/26/22?? 41.7?? MCV?? 06/20/23 14:11?? 85.2?? 03/26/22?? 88.5?? MCH?? 06/20/23 14:11?? 29.1?? 03/26/22?? 30.1?? MCHC?? 06/20/23 14:11?? 34.2?? 03/26/22?? 34.1?? RDW-CV?? 06/20/23 14:11?? 12.8?? 03/26/22?? 11.9?? Platelets?? 06/20/23 14:11?? 256?? 03/26/22?? 206?? Neutro Auto?? 06/20/23 14:11?? 63.9?? 03/26/22?? 70.3?? Lymph Auto?? 06/20/23 14:11?? 25.9?? 03/26/22?? 17.6 ??Low?? Peach Auto?? 06/20/23 14:11?? 9.2?? 03/26/22?? 11.2?? Eos, Auto?? 06/20/23 14:11?? 0.5 ??Low?? 03/26/22?? 0.5 ??Low?? Basophil Auto?? 06/20/23 14:11?? 0.4?? 03/26/22?? 0.2?? Imm Gran Auto?? 06/20/23 14:11?? 0.1?? 03/26/22?? 0.2?? Neutro Absolute?? 06/20/23 14:11?? 4.7?? 03/26/22?? 4.2?? Slide Review?? 06/20/23 14:11?? Not Indicated?? 03/26/22?? Not Indicated? Blood Gases?? LATEST RESULTS?? pH Say?? 06/20/23 15:02?? 7.38?? pCO2 Say?? 06/20/23 15:02?? 48 ??High?? pO2 Say?? 06/20/23 15:02?? 41?? HCO3 Venous?? 06/20/23 15:02?? 28?? O2 Sat Say?? 06/20/23 15:02?? 78?? CO2 Total Venous?? 06/20/23 15:02?? 30?? Base Excess Venous?? 06/20/23 15:02?? 2.4? Routine Chemistry?? LATEST RESULTS?? HISTORICAL RESULTS?? Sodium Level?? 06/20/23 14:10?? 141?? 03/26/22?? 138?? Potassium Level?? 06/20/23 14:10?? 4.2?? 03/26/22?? 3.6?? Chloride Level?? 06/20/23 14:10?? 106?? 03/26/22?? 104?? CO2?? 06/20/23 14:10?? 29?? 03/26/22?? 27?? Alk Phos?? 06/20/23 14:10?? 72?? 03/26/22?? 77?? AST?? 06/20/23 14:10?? 18?? 03/26/22?? 14 ??Low?? ALT?? 06/20/23 14:10?? 15 ??Low?? 03/26/22?? 25?? BUN?? 06/20/23 14:10?? 22 ??High?? 03/26/22?? 22 ??High?? Glucose Level?? 06/20/23 14:10?? 84?? 03/26/22?? 74?? Creatinine Level?? 06/20/23 14:10?? 1.33 ??High?? 03/26/22?? 1.26?? eGFR AA?? 06/20/23 14:11?? 55 ??Low?? 03/26/22?? 59 ??Low?? eGFR Non-AA?? 06/20/23 14:11?? 55 ??Low?? 03/26/22?? 59 ??Low?? Calcium Level?? 06/20/23 14:10?? 9.3?? 03/26/22?? 8.8?? Protein Total?? 06/20/23 14:10?? 7.1?? 03/26/22?? 7.2?? Albumin Level?? 06/20/23 14:10?? 3.5?? 03/26/22?? 3.6?? Bilirubin Total?? 06/20/23 14:10?? 0.7?? 03/26/22?? 0.6?? Lactic Acid Lvl?? 06/20/23 15:02?? <0.8?? 03/26/22?? 1.0?? Magnesium Level?? 06/20/23 14:10?? 2.1?? 03/26/22?? 2.3? UA Macroscopic?? LATEST RESULTS?? HISTORICAL RESULTS?? UA Color?? 06/20/23 14:10?? Pale Yellow?? 04/01/23?? Yellow?? UA Appear?? 06/20/23 14:10?? Clear?? 04/01/23?? Clear?? UA Glucose?? 06/20/23 14:10?? Negative?? 04/01/23?? Negative?? UA Bili?? 06/20/23 14:10?? Negative?? 04/01/23?? Negative?? UA Ketones?? 06/20/23 14:10?? Negative?? 04/01/23?? Negative?? UA Spec Grav?? 06/20/23 14:10?? <=1.005?? 04/01/23?? <=1.005?? UA Blood?? 06/20/23 14:10?? Negative?? 04/01/23?? Negative?? UA pH?? 06/20/23 14:10?? 6.0?? 04/01/23?? 6.5?? UA Protein?? 06/20/23 14:10?? Negative?? 04/01/23?? Negative?? UA Urobilinogen?? 06/20/23 14:10?? Normal?? 04/01/23?? Normal?? UA Nitrite?? 06/20/23 14:10?? Negative?? 04/01/23?? Negative?? UA Leuk Est?? 06/20/23 14:10?? Negative?? 04/01/23?? Negative? Electronically Signed on 06/20/23 06:09 PM Bernardo Jackson MD Emergency department Discharge instructions * Bernardo Jackson MD: PERFORM Event Display: ED Discharge Information Authored Date: [id number] SAJAN VALENCIA :1945 Age:77 years Sex:Male Visit Date:06/20/2023 Primary Care Physician: [facility], Bernardo Le MD Discharge Instructions We would like to thank you for allowing us to assist you with your healthcare needs. The following includes patient education materials and information regarding your injury/illness. Diagnosis from Today's Visit Orthostatic hypotension Discharge Vitals Temperature??(Temporal Artery) 97.2 ??F (36.2 ??C) Heart Rate??(Monitored) 89 Heart Rate??(Peripheral) 92 Respiratory Rate?? 13 Blood Pressure?? 161/94?? Blood Pressure?? 123/101(Sitting)?? Blood Pressure?? 130/83(Standing)?? Blood Pressure?? 139/89(Supine)?? SpO2?? 99% Height?? 27.95 in (71 cm) Weight?? 194.04 lb (88 kg) BMI?? 174.57 Allergies mixed grass pollens allergen extract??(Unknown) Seasonal What to Do Next Instructions from Your Care Team The problem is some of your??medication is low your blood pressure when you stand up.?? The best prevention against this??lowering of your blood pressure with standing is drinking generous amounts offluids.?? It is important to??drink fluids that contain some salt. ??Sports drinks??have this??advantage.?? Also dietary intake of salt counts.?? At a minimum he should be drinking 2??to 3 quarts??offluid per day. ??Your urine should be clear. ??This will help prevent this problem.?? Also instead of taking the selegiline??twice daily??take it only once daily.?? Follow-up with Dr. Marshall.?? Thereshould be gradual improvement.?? Return to the emergency department as needed. ?? Bernardo Jackson MD Upcoming Scheduled Appointments Saturday 8:15 AM EDT ?? With: Scott Jimenez MD Where: [facility] [address] [place] [phone] Status: Confirmed 2023 8:30 AM EDT ?? With: Matti SEGUNDOErin NP Where: [facility] [address] [place] [address] [place] [address] Status: Confirmed You were treated today on [...] 81 mg oral delayed release tablet) Unchanged atropine ophthalmic (atropine 1% ophthalmic solution) PLACE 1 TO 2 DROPS UNDER THE TONGUE UP TO THREE TIMES PER DAY NEEDED FOR EXCESSIVE SALIVATION ?? Unchanged carbidopa-levodopa (carbidopa-levodopa 25 mg-100 mg oral tablet) 1 tab Oral (given by mouth) 3 times a day Unchanged cholecalciferol (Vitamin D3) Every day Unchanged cyanocobalamin Unchanged cyanocobalamin (Vitamin B-12 500 mcg oral tablet) Unchanged fludrocortisone (fludrocortisone 0.1 mg oral tablet) 30 EA, TAKE 1 TABLET BY MOUTH ONCE DAILY MAY REQUIRE FURTHER TITRATION ?? Unchanged fluoride topical (PreviDent 5000 Booster 1.1% topical paste) Topical (on the skin) Every night at bedtime [place] teeth, swish for 30 seconds, then spit [...] Oral (given by mouth) Every day Unchanged melatonin (melatonin 3 mg oral tablet) 1 tab Oral (given by mouth) Every night at bedtime Unchanged mirabegron (Myrbetriq 50 mg oral tablet, extended release) 90 EA, TAKE 1 TABLET BY MOUTH ONCE DAILY ?? Unchanged multivitamin with minerals (Hair Skin and Nails oral tablet) Unchanged omega-3 polyunsaturated fatty acids (Fish Oil oral capsule) 1 Capsules Oral (given by mouth) Every day Unchanged omeprazole (omeprazole 20 mg oral delayed release capsule) 1 Capsules Oral (given by mouth) Every day as needed for other (see comment) as needed ?? Unchanged selegiline (selegiline 5 mg oral tablet) 1 tab Oral (given by mouth) 2 times a day Unchanged thiamine (Vitamin B1 100 mg oral tablet) Unchanged topiramate (topiramate 25 mg oral tablet) 60 EA, TAKE 1 TABLET BY MOUTH TWICE DAILY ?? Unchanged vibegron (Gemtesa 75 mg oral tablet) 1 tab Oral (given by mouth) Every day Neurogenic bladder Duration: 90 Days Unchanged vibegron (Gemtesa 75 mg oral tablet) 1 tab Oral (given by mouth) Every day Nocturia Overactive bladder Duration: 28 Days Unchanged vibegron (Gemtesa 75 mg oral tablet) 1 tab Oral (given by mouth) Every day Overactive bladder Duration: 90 Days Tests Performed Medications and Immunizations Administered Given 0.9% NaCl bolus, 1000 mL, Hydration Bolus 0.9% NaCl bolus, 1000 mL, Hydration Bolus Lab Test Name Test Result Date/Time WBC 7.4 x10^3/mcL 06/20/2023 14:11 EST RBC 5.3 x10^6/mcL 06/20/2023 14:11 EST Hgb 15.5 g/dL 06/20/2023 14:11 EST Hct 45.3 % 06/20/2023 14:11 EST MCV 85.2 fL 06/20/2023 14:11 EST MCH 29.1 pg 06/20/2023 14:11 EST MCHC 34.2 g/dL 06/20/2023 14:11 EST RDW-CV 12.8 % 06/20/2023 14:11 EST Platelets 256 x10^3/mcL 06/20/2023 14:11 EST Neutro Auto 63.9 % 06/20/2023 14:11 EST Lymph Auto 25.9 % 06/20/2023 14:11 EST Peach Auto 9.2 % 06/20/2023 14:11 EST Eos, Auto 0.5 % 06/20/2023 14:11 EST Basophil Auto 0.4 % 06/20/2023 14:11 EST Imm Gran Auto 0.1 % 06/20/2023 14:11 EST Neutro Absolute 4.7 x10^3/mcL 06/20/2023 14:11 EST Slide Review Not Indicated 06/20/2023 14:11 EST pH Say 7.38 pH unit(s) 06/20/2023 15:02 EST pCO2 Say 48 mmHg 06/20/2023 15:02 EST pO2 Say 41 mmHg 06/20/2023 15:02 EST HCO3 Venous 28 mmol/L 06/20/2023 15:02 EST O2 Sat Say 78 % 06/20/2023 15:02 EST CO2 Total Venous 30 mmol/L 06/20/2023 15:02 EST Base Excess Venous 2.4 mmol/L 06/20/2023 15:02 EST Sodium Level 141 mmol/L 06/20/2023 14:10 EST Potassium Level 4.2 mmol/L 06/20/2023 14:10 EST Chloride Level 106 mmol/L 06/20/2023 14:10 EST CO2 29 mmol/L 06/20/2023 14:10 EST Alk Phos 72 unit/L 06/20/2023 14:10 EST AST 18 unit/L 06/20/2023 14:10 EST ALT 15 unit/L 06/20/2023 14:10 EST BUN 22 mg/dL 06/20/2023 14:10 EST Glucose Level 84 mg/dL 06/20/2023 14:10 EST Creatinine Level 1.33 mg/dL 06/20/2023 14:10 EST eGFR AA 55 06/20/2023 14:11 EST eGFR Non-AA 55 06/20/2023 14:11 EST Calcium Level 9.3 mg/dL 06/20/2023 14:10 EST Protein Total 7.1 g/dL 06/20/2023 14:10 EST Albumin Level 3.5 g/dL 06/20/2023 14:10 EST Bilirubin Total 0.7 mg/dL 06/20/2023 14:10 EST Lactic Acid Lvl <0.8 mmol/L 06/20/2023 15:02 EST Magnesium Level 2.1 mg/dL 06/20/2023 14:10 EST UA Color Pale Yello 06/20/2023 14:10 EST UA Appear CLEAR. 06/20/2023 14:10 EST UA Glucose NEGATIVE 06/20/2023 14:10 EST UA Bili NEGATIVE 06/20/2023 14:10 EST UA Ketones NEGATIVE 06/20/2023 14:10 EST UA Spec Grav <=1.005 06/20/2023 14:10 EST UA Blood NEGATIVE 06/20/2023 14:10 EST UA pH 6.0 06/20/2023 14:10 EST UA Protein NEGATIVE 06/20/2023 14:10 EST UA Urobilinogen 0.2 Uro 06/20/2023 14:10 EST UA Nitrite NEGATIVE 06/20/2023 14:10 EST UA Leuk Est NEGATIVE 06/20/2023 14:10 EST Patient/Content Management Consultant Signature Patient Name:SAJAN VALENCIA I have received this information and my questions have been answered. Patient/Content Management Consultant Name: Patient/Content Management Consultant Signature: Relationship to Patient: Witness Name/Signature: Date: Electronically Signed on: 06/20/2023 18:10 ESTSigned by:[facility] Discharge summary * Dorinda Melvin: PERFORM Event Display: Discharge Summary Authored Date: [id number] Patient Care team information Care Team Personnel Name: Bernardo Brewer MD Position: No Access Member Role: Informed Provider Address: Address: [address] [address] Care Team Related Persons Name: LINDA VALENCIA Address: Home [address] [place] [address], [id number]
--- OUTSIDE RECORDS SUMMARY | 2023-11-13 12:54 | XMS_ITS | Continuity of Care Document ---
Author Organization [facility] Address [address] [place] [address] Care Team Providers Care Wildlife Technician Name Role Phone Bernardo Mata Primary Care Physician Encounter [id number] Date(s): 03/20/22 - 03/20/[address] [id number] Discharge Disposition: Home or Self Care Attending Physician: Bernardo Mata MD Admitting Physician: Bernardo Mata MD Referring Physician: Bernardo Mata MD Allergies, Adverse Reactions, Alerts No Known Medication Allergies Substance Reaction Severity Status Seasonal 1 Unknown Active 1hay fever Assessment and Plan Future Appointments Medications amoxicillin 500 mg oral capsule 2,000 [...] Daily, # 180 tab, 6 Refill(s), Pharmacy: [id number] Start Date: 02/08/22 Status: Ordered omeprazole 20 mg oral delayed release capsule 20 mg = 1 cap, Oral, Daily, PRN other (see comment), as needed Start Date: 12/01/21 Status: Ordered PreviDent 5000 Booster 1.1% topical paste Topical, every night at bedtime, [place] teeth, swish for 30 seconds, then spit [...] Body Site Status Hip replacement 1 04/14/09 [facility] ed Orthopedic surgery 2 Comp leted Tonsillectomy Completed 1Right 2right IP joint fusion Results Laboratory List Name Date Urinalysis Microscopic 03/20/22 Urinalysis with Micro if Indicated and C ulture if Indicated 03/20/22 CBC w/o Diff 03/20/22 Most recent to oldest [Reference Range]: 1 WBC [5.0-10.0 x10^3/mcL] 6.4 x10^3/mcL (03/20/22 2:50 PM) RBC [4.6-6.0 x10^6/mcL] 4.8 x10^6/mcL (03/20/22 2:50 PM) UA Color Straw (03/20/22 3:00 PM) UA WBC [0-3] 0-3 (03/20/22 3:00 PM) MCV [80.0-96.0] 88.4 (03/20/22 2:50 PM) UA Urobilinogen Normal (03/20/22 3:00 PM) UA Bili [Negative] Negative (03/20/22 3:00 PM) UA Ketones Negative (03/20/22 3:00 PM) MCHC [31.0-35.0 g/dL] 34.2 g/dL (03/20/22 2:50 PM) UA RBC [0-2] 0-2 (03/20/22 3:00 PM) UA Leuk Est Negative (03/20/22 3:00 PM) UA Nitrite Negative (03/20/22 3:00 PM) UA Glucose [Negative] Negative (03/20/22 3:00 PM) Hct [41.0-51.0 %] 42.7 % (03/20/22 2:50 PM) UA Bacteria None Seen /HPF (03/20/22 3:00 PM) UA Protein Negative (03/20/22 3:00 PM) MCH [26.0-32.0 pg] 30.2 pg (03/20/22 2:50 PM) Hgb [14.0-18.0 g/dL] 14.6 g/dL (03/20/22 2:50 PM) UA Blood Trace *ABN* (03/20/22 3:00 PM) UA Mucous None Seen /HPF (03/20/22 3:00 PM) UA Spec Grav 1.010 *NA* (03/20/22 3:00 PM) Platelets [130-450 x10^3/mcL] 205 x10^3/ mcL (03/20/22 2:50 PM) UA Squam Epithelial [None Seen] None See n (03/20/22 3:00 PM) UA pH 6.0 *NA* (03/20/22 3:00 PM) UA Appear Clear (03/20/22 3:00 PM) RDW-CV [11.5-17.0 %] 11.9 % (03/20/22 2:50 PM) UA Culture Ind?. Not Indicated (03/20/22 3:00 PM) Social History Social History Type Response Tobacco Never tobacco user T obacco Use:. Sex Male Patient Care team information Personnel Name: Bernardo Mata MD Address: Address: [address] [address]- [place]
--- OUTSIDE RECORDS SUMMARY | 2023-11-13 12:54 | XMS_ITS | Continuity of Care Document ---
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) - Discharge Disposition: Home or Self Care Attending Physician: Zaynab Guy MD Admitting Physician: Zaynab Guy MD Allergies, Adverse Reactions, Alerts No Known Medication Allergies Substance Reaction Severity Status Seasonal 1 Unknown Active 1hay fever Assessment and Plan Future Appointments Diagnostic Tests Pending * HSV Molecular Detection, PCR [facility] 03/26/22 Medications amoxicillin 500 mg oral capsule 2,000 [...] Daily, # 180 tab, 6 Refill(s), Pharmacy: [id number] Start Date: 02/08/22 Status: Ordered omeprazole 20 mg oral delayed release capsule 20 mg = 1 cap, Oral, Daily, PRN other (see comment), as needed Start Date: 12/01/21 Status: Ordered PreviDent 5000 Booster 1.1% topical paste Topical, every night at bedtime, Parsons teeth, swish for 30 seconds, then spit [...] Body Site Status Hip replacement 1 04/14/09 [facility] ed Orthopedic surgery 2 Comp leted Tonsillectomy Completed 1Right 2right IP joint fusion Results Laboratory List Name Date Cell Count w/ Diff CSF 03/26/22 Glucose CSF 03/26/22 Protein CSF 03/26/22 Urinalysis with Micro if Indicated and C ulture if Indicated 03/26/22 CBC w/ Diff 03/26/22 Comprehensive Metabolic Panel (CMP) 03/15 06/06 Lactic Acid 03/26/22 Magnesium Level 03/26/22 NT- Pro BNP 03/26/22 PT/ INR 03/26/22 PTT 03/26/22 TSH w/ Rflx to Free T4 03/26/22 Troponin-I 03/26/22 Automated Diff 03/26/22 Most recent to oldest [Reference Range]: 1 WBC [5.0-10.0 x10^3/mcL] 5.9 x10^3/mcL (03/26/22 12:41 PM) RBC [4.6-6.0 x10^6/mcL] 4.7 x10^6/mcL (03/26/22 12:41 PM) Neutro Auto [40.0-75.0 %] 70.3 % (03/26/22 12:41 PM) Lymph Auto [20.0-50.0 %] 17.6 % *LOW* (03/26/22 12:41 PM) [place] Auto [2.0-15.0 %] 11.2 % (03/26/22 12:41 PM) Basophil Auto [0.0-1.0 %] 0.2 % (03/26/22 12:41 PM) Prothrombin Time [9.0-11.0 seconds] 10.2 seconds (03/26/22 12:41 PM) INR 1.0 *NA* (03/26/22 12:41 PM) BUN [7-18 mg/dL] 22 mg/dL *HI* (03/26/22 12:41 PM) UA Color Yellow (03/26/22 1:58 PM) Glucose Level [74-106 mg/dL] 74 mg/dL (03/26/22 12:41 PM) Potassium Level [3.5-5.1 mmol/L] 3.6 mmo l/L (03/26/22 12:41 PM) Glucose CSF [40-70 mg/dL] 58 mg/dL (03/26/22 8:18 PM) MCV [80.0-96.0] 88.5 (03/26/22 12:41 PM) UA Urobilinogen Normal (03/26/22 1:58 PM) UA Bili [Negative] Negative (03/26/22 1:58 PM) UA Ketones Negative (03/26/22 1:58 PM) AST [15-37 unit/L] 14 unit/L *LOW* (03/26/22 12:41 PM) ALT [16-63 unit/L] 25 unit/L (03/26/22 12:41 PM) MCHC [31.0-35.0 g/dL] 34.1 g/dL (03/26/22 12:41 PM) WBC CSF <0.003 x10^3/mcL *NA* (03/26/22 8:18 PM) Troponin-I [0.0-76.2 pg/mL] 6.5 pg/mL (03/26/22 12:41 PM) Sodium Level [136-145 mmol/L] 138 mmol/L (03/26/22 12:41 PM) UA Leuk Est Negative (03/26/22 1:58 PM) UA Nitrite Negative (03/26/22 1:58 PM) UA Glucose [Negative] Negative (03/26/22 1:58 PM) Hct [41.0-51.0 %] 41.7 % (03/26/22 12:41 PM) Xanthochromia CSF [Absent] Absent (03/26/22 8:18 PM) Partial Thromboplastin Time [22-35 secon ds] 25 seconds (03/26/22 12:41 PM) Calcium Level [8.5-10.1 mg/dL] 8.8 mg/dL (03/26/22 12:41 PM) Albumin Level [3.4-5.0 g/dL] 3.6 g/dL (03/26/22 12:41 PM) Protein Total [6.4-8.2 g/dL] 7.2 g/dL (03/26/22 12:41 PM) UA Protein Negative (03/26/22 1:58 PM) MCH [26.0-32.0 pg] 30.1 pg (03/26/22 12:41 PM) Magnesium Level [1.8-2.4 mg/dL] 2.3 mg/d L (03/26/22 12:41 PM) Neutro Absolute 4.2 x10^3/mcL *NA* (03/26/22 12:41 PM) Bilirubin Total [0.2-1.0 mg/dL] 0.6 mg/d L (03/26/22 12:41 PM) Hgb [14.0-18.0 g/dL] 14.2 g/dL (03/26/22 12:41 PM) RBC CSF 6.000 x10^6/mcL *NA* (03/26/22 8:18 PM) Alk Phos [46-146 unit/L] 77 unit/L (03/26/22 12:41 PM) UA Blood Negative (03/26/22 1:58 PM) UA Spec Grav 1.010 *NA* (03/26/22 1:58 PM) Platelets [130-450 x10^3/mcL] 206 x10^3/ mcL (03/26/22 12:41 PM) Protein CSF [15-45 mg/dL] 47 mg/dL *HI* (03/26/22 8:18 PM) CO2 [21-32 mmol/L] 27 mmol/L (03/26/22 12:41 PM) Lactic Acid Lvl [0.7-2.1 mmol/L] 1.0 mmo l/L (03/26/22 12:41 PM) TSH [0.358-3.740 mcIntlUnit/mL] 1.709 mc IntlUnit/mL (03/26/22 12:41 PM) UA pH 6.0 *NA* (03/26/22 1:58 PM) Clarity CSF [Clear] Clear (03/26/22 8:18 PM) eGFR Non-AA [>=60] 59 *LOW* (03/26/22 12:41 PM) eGFR AA [>=60] 59 *LOW* (03/26/22 12:41 PM) UA Appear Clear (03/26/22 1:58 PM) NT-proBNP [0-450 pg/mL] 75 pg/mL (03/26/22 12:41 PM) Chloride Level [98-107 mmol/L] 104 mmol/ L (03/26/22 12:41 PM) RDW-CV [11.5-17.0 %] 11.9 % (03/26/22 12:41 PM) Imm Gran Auto [0.0-0.9 %] 0.2 % (03/26/22 12:41 PM) Creatinine Level [0.70-1.30 mg/dL] 1.26 mg/dL (03/26/22 12:41 PM) Eos, Auto [1.0-6.0 %] 0.5 % *LOW* (03/26/22 12:41 PM) Orders for Microbiology Reports Name Date Cerebrospinal Fluid Culture 03/26/22 Microbiology Reports TEST:Cerebrospinal Fluid Culture STATUS:Order in Progress BODY SITE: SOURCE:Cerebrospinal Fluid COLLECTED DATE/TIME:03/26/22 8:18 PM PRELIMINARY REPORT No growth at 24 hours. STAIN REPORT No WBC seen No organisms seen. Vital Signs Most recent to oldest [Reference Range]: 1 2 3 Temperature Temporal Artery [36-38 Deg C] 35.6 Deg C *LOW* (03/26/22 11:14 AM) Peripheral Pulse Rate [60-100 bpm] 71 bpm (03/26/22 8:09 PM) 59 bpm *LOW* (03/26/22 5:43 PM) 56 bpm *LOW* (03/26/22 12:48 PM) Heart Rate Monitored [60-100 bpm] 86 bpm (03/26/22 7:38 PM) 59 bpm *LOW* (03/26/22 5:43 PM) 63 bpm (03/26/22 4:19 PM) Respiratory Rate [12-24 br/min] 16 br/min (03/26/22 7:38 PM) 18 br/min (03/26/22 5:43 PM) 19 br/min (03/26/22 4:19 PM) Blood Pressure [90-140/60-90 mmHg] 184/104mmHg *HI* (03/26/22 8:09 PM) 148/85mmHg *HI* (03/26/22 5:43 PM) 170/88mmHg *HI* (03/26/22 4:19 PM) Weight Dosing 61.23 kg (03/26/22 11:40 AM) Weight Estimated 61.23 kg (03/26/22 11:14 AM) Height/Length Dosing 180.340 cm (03/26/22 11:40 AM) Height/Length Estimated 180.340 cm (03/26/22 11:14 AM) Social History Social History Type Response Tobacco Never tobacco user T obacco Use:. Sex Male Hospital Discharge Instructions Patient Education 03/26/2022 19:57:43 Near-Syncope Near-Syncope Near-syncope is when you suddenly feel like you might pass out (faint), but you do not actually lose consciousness. This may also be referred to as presyncope. During an episode of near-syncope, you may: ??? Feel dizzy, weak, or light-headed. ??? Feel nauseous. ??? See all white or all black in your field of vision, or see spots. ??? Have cold, clammy skin. This condition is caused by a sudden decrease in blood flow to the brain. This decrease can result from various causes, but most of those causes are not dangerous. However, near-syncope may be a signof a serious medical problem, so it is important to seek medical care. Follow these instructions at home: Medicines ??? Take xgpe-knd-nlanslz and prescription medicines only as told by your health care provider. ??? If you are taking blood pressure or heart medicine, get up slowly and take several minutes to sit and then stand. This can reduce dizziness. General instructions ??? Pay attention to any changes in your symptoms. ??? Talk with your health care provider about your symptoms. You may need to have testing to understand the cause of your near-syncope. ??? If you start to feel like you might faint, lie down right away and raise (elevate) your feet above the level of your heart. Breathe deeply and steadily. Wait until all of the symptoms have passed. ??? Have someone stay with you until you feel stable. ??? Do not drive, use machinery, or play sports until your health care provider says it is okay. ??? Drink enough fluid to keep your urine pale yellow. ??? Keep all follow-up visits as told by your health care provider. This is important. Get help right away if you: ??? Have a seizure. ??? Have unusual pain in your chest, abdomen, or back. ??? Faint once or repeatedly. ??? Have a severe headache. ??? Are bleeding from your mouth or rectum, or you have black or tarry stool. ??? Have a very fast or irregular heartbeat (palpitations). ??? Are confused. ??? Have trouble walking. ??? Have severe weakness. ??? Have vision problems. These symptoms may represent a serious problem that is an emergency. Do not wait to see if your symptoms will go away. Get medical help right away. Call your local emergency services (911 in the [place] Do not drive yourself to the hospital. Summary ??? Near-syncope is when you suddenly feel like you might pass out (faint), but you do not actuallylose consciousness. ??? This condition is caused by a sudden decrease in blood flow to the brain. This decrease can result from various causes, but most of those causes are not dangerous. ??? Near-syncope may be a sign of a serious medical problem, so it is important to seek medical care. This information is not intended to replace advice given to you by your health care provider. Make sure you discuss any questions you have with your health care provider. Document Revised: 07/24/2019 Document Reviewed: 02/18/2019 Elsevier Patient Education ?? 2021 [email or web address] Follow Up Care 03/26/2022 11:14:29 With:Bernardo Brewer MD Address: [address] [phone] When:1 month Physician Emergency department Note * Sumeet Carrillo MD: PERFORM Event Display: ED Note Physician Authored Date: [id number] SAJAN VALENCIA :1945 Age:76 years Sex:Male Visit Date:03/26/2022 Primary Care Physician: Bernardo Brewer MD Basic Information Time Seen: Sumeet Carrillo MD / 03/26/2022 11:42 Chief Complaint Pt states that he has been having issues with headaches for 3 years. ??Has has dizziness and low blood pressure today. ??Is schedued for an MRI in [place] History Of Present Illness: 76-year-old male past medical history??parkinsonism, reflux, epilepsy, hemorrhoids, hyperlipidemia,??KARLI presents with??presyncope. ??This seems to be positional in nature. ??Going on for the past 2 days this is new he has never had this before.?? This is all within the setting of having a potential diagnosis of??TIA??about a week ago after being evaluated for??neurologic symptoms. ??He also has had headaches for 3 years and sees neurology at [facility].?? The only new symptoms today are??presyncope. ??No chest pain or shortness of breath or neck stiffness or pain or fevers no cough cold congestion abdominal pain or any other symptoms. Review of Systems: Constitutional:?No??fevers,?No??chills,?No??sweats Eye:?No??recent visual problems ENT:?No??ear pain,?No??nasal congestion,?No??sore throat Respiratory:?No??shortness of breath,?No??cough Cardiovascular:?No??Chest pain,?No??palpitations,?No??syncope Gastrointestinal:?Nonausea,?No??vomiting,?No??diarrhea Genitourinary:?No??hematuria Parveen/Lymph:?No??bruising tendency,?No??swollen lymph glands Endocrine:?No??excessive thirst,??No??excessive hunger Musculoskeletal:??No??back pain,??No??neck pain,??No??joint pain,??No??muscle pain,??No??decreased range of motion Integumentary:?No??rash,?No??pruritus,?No??abrasions Neurologic: Alert & oriented X 4 Psychiatric:?No??anxiety,?No??depression Physical Exam Vitals & Measurements T:??35.6?C ??(Temporal Artery)?? HR:??71??(Peripheral)?? RR:??16?? BP:??184/104?? SpO2:??96%?? HT:??180.340??cm?? WT:??61.23??kg??(Estimated)?? Pain Score:??3?? O2 Therapy:??Room air?? General: Alert and oriented, [...] assistance, normal gait Cerebellar: No nystagmus, normal zuqxua-bd-osho and finger to finger test (no dysmetria), normal rapid alternating movements (no dysdiadochokenesia, normal jzvs-yv-qbzs test, normal gait Medical Decision Makin-year-old male presents with symptoms of presyncope??within the last 2 days, however he has had headaches for many years and presented to the ER about a week ago with??neurologic symptoms and was worked up in the ER for this.?? At that time he had a negative Noncon CT of the head as well as??CT of the orbits??other than some mild prominence of the right??retrobulbar??optic nerve area.?? MRI was recommended for further classification. ??Patient comes in for persistent symptoms and new symptomsof presyncope spoke with PCP and sentiment for evaluation.?? 35.6, 93/53, 65, 16, 98%. ??Patient has a normal neurologic exam, gait is normal. ??His movements are slow but he has a diagnosis of parkinsonism which is likely etiology of this. ??Otherwise alert and oriented in no acute distress. ??He states mainly??presyncope is the reason why he came in today. ?? EKG rate 61 sinus??possible left axis,??no ST segment elevations or depressions.?? Possible right bundle branch block pathology. ?? Labs are unremarkable.?? Troponin is normal. ??UA is negative.?? MRI was obtained secondary to imaging last week that recommended this, and unclear if the symptoms today are part of??neurologic orcardiac??etiology.?? MRI brain with and without??including orbits??showed??CSF along the optic nerves right greater than left, differential on radiology report includes normal variant versus pseudotumor cerebri.?? Spoke with neurology on-call at [facility]??because patient sees??Dr. 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 ??On reexamination, I asked about vision changes, he states that over the last couple days he has had vision changes where partially his vision??will bleed blocked out??for a couple of seconds and then resume.?? Given the vision changes and findings on MRI, lumbar puncture was performed to evaluate for opening pressure, this was 14-15??and normal. ??CSF??studies are pending.?? Given??all of this, recommended patient follow-up closely with neurology and primary care regarding symptoms, exact etiology of symptoms not entirely clear but emergent pathology not identified on evaluation??here in theER.?? Discharged in stable condition with neurology and PCP follow-up and return precautions. Procedure LUMBAR PUNCTURE: Right lateral decubitus position was??obtained,??lumbar puncture was performed and sterile technique, no complications, consent was obtained prior to the procedure, CSF was clear, opening pressure was??14-15. No Qualifying Data Assessment/Plan 1.??Postural dizziness with presyncope??R42 Ordered: Discharge Patient, 03/26/22 20:57:00 EST, Home Independently, Constant Indicator ?? Syncope and collapse??R55 ?? Orders: Cell Count w/ Diff CSF, Cerebrospinal Fluid, Stat Collect, 03/26/22 20:17:00 EST, Once, Nurse collect, Print Label Cerebrospinal Fluid Culture, Cerebrospinal Fluid, Stat collect, ST - Stat, 03/26/22 20:17:00 EST, Once, Nurse collect Glucose CSF, Cerebrospinal Fluid, Stat Collect, 03/26/22 20:17:00 EST, Once, Nurse collect, Print Label HSV Molecular Detection, PCR [facility], Cerebrospinal Fluid, Stat Collect, 03/26/22 20:17:00 EST, Once, Nurse collect, Print Label, CSF Protein CSF, Cerebrospinal Fluid, Stat Collect, 03/26/22 20:17:00 EST, Once, Nurse collect, Print Label Patient Education Near-Syncope Follow Up With When Contact Information [facility], Bernardo Le MD Within [address] [address] [phone] Additional Instructions: Medication Reconciliation Unchanged acetaminophen (Tylenol)as [...] (on the skin) every night at bedtime. Parsons teeth, swish for 30 seconds, then spit [...] or chew. ?? omega-3 polyunsaturated fatty acids ([place]-3 Fish Oil)Oral (given by mouth) every day. [...] wrist Procedure/Surgical History ???Hip replacement (04/15/2009)???Orthopedic surgery???Tonsillectomy Medication Administration Given Ativan, 1 mg, IV Push NS bolus, 1000 mL, IV Piggyback Allergies Seasonal No Known Medication Allergies Social History Alcohol Never Electronic Cigarette/Vaping Electronic Cigarette Use: Never. Home/Environment Lives with Spouse. Living situation: Home/Independent. Nutrition/Health Caffeine intake amount: 1 c coffee a day. Substance Use Never Tobacco Never tobacco user Tobacco Use:. Lab Results CBC and Differential?? LATEST RESULTS?? HISTORICAL RESULTS?? WBC?? 03/26/22 12:41?? 5.9?? 03/22/22?? 6.2?? RBC?? 03/26/22 12:41?? 4.7?? 03/22/22?? 5.1?? Hgb?? 03/26/22 12:41?? 14.2?? 03/22/22?? 15.4?? Hct?? 03/26/22 12:41?? 41.7?? 03/22/22?? 45.3?? MCV?? 03/26/22 12:41?? 88.5?? 03/22/22?? 89.0?? MCH?? 03/26/22 12:41?? 30.1?? 03/22/22?? 30.3?? MCHC?? 03/26/22 12:41?? 34.1?? 03/22/22?? 34.0?? RDW-CV?? 03/26/22 12:41?? 11.9?? 03/22/22?? 11.8?? Platelets?? 03/26/22 12:41?? 206?? 03/22/22?? 217?? Neutro Auto?? 03/26/22 12:41?? 70.3?? 03/22/22?? 69.9?? Lymph Auto?? 03/26/22 12:41?? 17.6 ??Low?? 03/22/22?? 21.6?? [place] Auto?? 03/26/22 12:41?? 11.2?? 03/22/22?? 7.8?? Eos, Auto?? 03/26/22 12:41?? 0.5 ??Low?? 03/22/22?? 0.3 ??Low?? Basophil Auto?? 03/26/22 12:41?? 0.2?? 03/22/22?? 0.2?? Imm Gran Auto?? 03/26/22 12:41?? 0.2?? 03/22/22?? 0.2?? Neutro Absolute?? 03/26/22 12:41?? 4.2?? 03/22/22?? 4.3? Coagulation?? LATEST RESULTS?? Prothrombin Time?? 03/26/22 12:41?? 10.2?? INR?? 03/26/22 12:41?? 1.0?? Partial Thromboplastin Time?? 03/26/22 12:41?? 25? Routine Chemistry?? LATEST RESULTS?? HISTORICAL RESULTS?? Sodium Level?? 03/26/22 12:41?? 138?? 03/22/22?? 140?? Potassium Level?? 03/26/22 12:41?? 3.6?? 03/22/22?? 3.7?? Chloride Level?? 03/26/22 12:41?? 104?? 03/22/22?? 102?? CO2?? 03/26/22 12:41?? 27?? 03/22/22?? 30?? Alk Phos?? 03/26/22 12:41?? 77? AST?? 03/26/22 12:41?? 14 ??Low? ALT?? 03/26/22 12:41?? 25? BUN?? 03/26/22 12:41?? 22 ??High?? 03/22/22?? 18?? Glucose Level?? 03/26/22 12:41?? 74?? 03/22/22?? 91?? Creatinine Level?? 03/26/22 12:41?? 1.26?? 03/22/22?? 1.18?? eGFR AA?? 03/26/22 12:41?? 59 ??Low?? 03/22/22?? 64?? eGFR Non-AA?? 03/26/22 12:41?? 59 ??Low?? 03/22/22?? 64?? Calcium Level?? 03/26/22 12:41?? 8.8?? 03/22/22?? 9.4?? Protein Total?? 03/26/22 12:41?? 7.2? Albumin Level?? 03/26/22 12:41?? 3.6? Bilirubin Total?? 03/26/22 12:41?? 0.6? Lactic Acid Lvl?? 03/26/22 12:41?? 1.0? Magnesium Level?? 03/26/22 12:41?? 2.3? Cardiac Isoenzymes?? LATEST RESULTS?? Troponin-I?? 03/26/22 12:41?? 6.5?? NT-proBNP?? 03/26/22 12:41?? 75? Thyroid Studies?? LATEST RESULTS?? TSH?? 03/26/22 12:41?? 1.709? UA Macroscopic?? LATEST RESULTS?? HISTORICAL RESULTS?? UA Color?? 03/26/22 13:58?? Yellow?? 03/20/22?? Straw?? UA Appear?? 03/26/22 13:58?? Clear?? 03/20/22?? Clear?? UA Glucose?? 03/26/22 13:58?? Negative?? 03/20/22?? Negative?? UA Bili?? 03/26/22 13:58?? Negative?? 03/20/22?? Negative?? UA Ketones?? 03/26/22 13:58?? Negative?? 03/20/22?? Negative?? UA Spec Grav?? 03/26/22 13:58?? 1.010?? 03/20/22?? 1.010?? UA Blood?? 03/26/22 13:58?? Negative?? 03/20/22?? Trace Abnormal?? UA pH?? 03/26/22 13:58?? 6.0?? 03/20/22?? 6.0?? UA Protein?? 03/26/22 13:58?? Negative?? 03/20/22?? Negative?? UA Urobilinogen?? 03/26/22 13:58?? Normal?? 03/20/22?? Normal?? UA Nitrite?? 03/26/22 13:58?? Negative?? 03/20/22?? Negative?? UA Leuk Est?? 03/26/22 13:58?? Negative?? 03/20/22?? Negative? Electronically Signed on 03/26/22 08:58 PM Sumeet Carrillo MD Emergency department Discharge instructions * Melvina Jiménez: PERFORM Event Display: ED Discharge Information Authored Date: * Sumeet Carrillo MD: PERFORM Event Display: ED Discharge Information Authored Date: [id number] SAJAN VALENCIA :1945 Age:76 years Sex:Male Visit Date:03/26/2022 Primary Care Physician: Bernardo Brewer MD Discharge Instructions We would like to thank you for allowing us to assist you with your healthcare needs. The following includes patient education materials and information regarding your injury/illness. Diagnosis from Today's Visit Postural dizziness with presyncope Syncope and collapse Discharge Vitals Temperature??(Temporal Artery) 96.1 ??F (35.6 ??C) Heart Rate??(Peripheral) 71 Respiratory Rate?? 16 Blood Pressure?? 184/104?? Height?? 71.00 in (180.340 cm) Weight??(Estimated) 135.01 lb (61.23 kg) Allergies Seasonal No Known Medication Allergies What to Do Next You Need to Schedule the Following Appointments Follow Up with??Bernardo Brewer MD When:??Within 1 month Where: [address] [address] [phone] Upcoming Scheduled Appointments Saturday 8:00 AM EDT [...] (on the skin) Every night at bedtime Parsons teeth, swish for 30 seconds, then spit [...] chew ?? Unchanged omega-3 polyunsaturated fatty acids ([place]-3 Fish Oil) Oral (given by mouth) Every day Unchanged omeprazole (omeprazole 20 mg oral delayed release capsule) 1 Capsules Oral (given by mouth) Every day as needed for other (see comment) as needed ?? Unchanged PHENobarbital (PHENobarbital 30 mg oral tablet) 2 tab Oral (given by mouth) Every evening Education Materials Near-Syncope Near-syncope is when you suddenly feel like you might pass out (faint), but you do not actually lose consciousness. This may also be referred to as presyncope. During an episode of near-syncope, you may: ? Feel dizzy, weak, or light-headed. ? Feel nauseous. ? See all white or all black in your field of vision, or see spots. ? Have cold, clammy skin. This condition is caused by a sudden decrease in blood flow to the brain. This decrease can result from various causes, but most of those causes are not dangerous. However, near-syncope may be a signof a serious medical problem, so it is important to seek medical care. Follow these instructions at home: Medicines ? Take xwiy-ojk-cfqbmvv and prescription medicines only as told by your health care provider. ? If you are taking blood pressure or heart medicine, get up slowly and take several minutes to sit and then stand. This can reduce dizziness. General instructions ? Pay attention to any changes in your symptoms. ? Talk with your health care provider about your symptoms. You may need to have testing to understandthe cause of your near-syncope. ? If you start to feel like you might faint, lie down right away and raise (elevate) your feet above the level of your heart. Breathe deeply and steadily. Wait until all of the symptoms have passed. ? Have someone stay with you until you feel stable. ? Do not drive, use machinery, or play sports until your health care provider says it is okay. ? Drink enough fluid to keep your urine pale yellow. ? Keep all follow-up visits as told by your health care provider. This is important. Get help right away if you: ? Have a seizure. ? Have unusual pain in your chest, abdomen, or back. ? Faint once or repeatedly. ? Have a severe headache. ? Are bleeding from your mouth or rectum, or you have black or tarry stool. ? Have a very fast or irregular heartbeat (palpitations). ? Are confused. ? Have trouble walking. ? Have severe weakness. ? Have vision problems. These symptoms may represent a serious problem that is an emergency. Do not wait to see if your symptoms will go away. Get medical help right away. Call your local emergency services (911 in the [place] Do not drive yourself to the hospital. Summary ? Near-syncope is when you suddenly feel like you might pass out (faint), but you do not actually lose consciousness. ? This condition is caused by a sudden decrease in blood flow to the brain. This decrease can result from various causes, but most of those causes are not dangerous. ? Near-syncope may be a sign of a serious medical problem, so it is important to seek medical care. This information is not intended to replace advice given to you by your health care provider. Make sure you discuss any questions you have with your health care provider. Document Revised: 07/24/2019 Document Reviewed: 02/18/2019 [employer] Patient Education ?? 2021 [email or web address] Tests Performed Medications and Immunizations Administered Given Ativan, 1 mg, IV Push NS bolus, 1000 mL, IV Piggyback Lab Test Name Test Result Date/Time WBC 5.9 x10^3/mcL 03/26/2022 12:41 EST RBC 4.7 x10^6/mcL 03/26/2022 12:41 EST Hgb 14.2 g/dL 03/26/2022 12:41 EST Hct 41.7 % 03/26/2022 12:41 EST MCV 88.5 03/26/2022 12:41 EST MCH 30.1 pg 03/26/2022 12:41 EST MCHC 34.1 g/dL 03/26/2022 12:41 EST RDW-CV 11.9 % 03/26/2022 12:41 EST Platelets 206 x10^3/mcL 03/26/2022 12:41 EST Neutro Auto 70.3 % 03/26/2022 12:41 EST Lymph Auto 17.6 % 03/26/2022 12:41 EST [place] Auto 11.2 % 03/26/2022 12:41 EST Eos, Auto 0.5 % 03/26/2022 12:41 EST Basophil Auto 0.2 % 03/26/2022 12:41 EST Imm Gran Auto 0.2 % 03/26/2022 12:41 EST Neutro Absolute 4.2 x10^3/mcL 03/26/2022 12:41 EST Prothrombin Time 10.2 seconds 03/26/2022 12:41 EST INR 1.0 03/26/2022 12:41 EST Partial Thromboplastin Time 25 seconds 03/26/2022 12:41 EST Sodium Level 138 mmol/L 03/26/2022 12:41 EST Potassium Level 3.6 mmol/L 03/26/2022 12:41 EST Chloride Level 104 mmol/L 03/26/2022 12:41 EST CO2 27 mmol/L 03/26/2022 12:41 EST Alk Phos 77 unit/L 03/26/2022 12:41 EST AST 14 unit/L 03/26/2022 12:41 EST ALT 25 unit/L 03/26/2022 12:41 EST BUN 22 mg/dL 03/26/2022 12:41 EST Glucose Level 74 mg/dL 03/26/2022 12:41 EST Creatinine Level 1.26 mg/dL 03/26/2022 12:41 EST eGFR AA 59 03/26/2022 12:41 EST eGFR Non-AA 59 03/26/2022 12:41 EST Calcium Level 8.8 mg/dL 03/26/2022 12:41 EST Protein Total 7.2 g/dL 03/26/2022 12:41 EST Albumin Level 3.6 g/dL 03/26/2022 12:41 EST Bilirubin Total 0.6 mg/dL 03/26/2022 12:41 EST Lactic Acid Lvl 1.0 mmol/L 03/26/2022 12:41 EST Magnesium Level 2.3 mg/dL 03/26/2022 12:41 EST Troponin-I 6.5 pg/mL 03/26/2022 12:41 EST NT-proBNP 75 pg/mL 03/26/2022 12:41 EST TSH 1.709 mcIntlUnit/mL 03/26/2022 12:41 EST UA Color YELLOW. 03/26/2022 13:58 EST UA Appear CLEAR. 03/26/2022 13:58 EST UA Glucose NEGATIVE 03/26/2022 13:58 EST UA Bili NEGATIVE 03/26/2022 13:58 EST UA Ketones NEGATIVE 03/26/2022 13:58 EST UA Spec Grav 1.010 03/26/2022 13:58 EST UA Blood NEGATIVE 03/26/2022 13:58 EST UA pH 6.0 03/26/2022 13:58 EST UA Protein NEGATIVE 03/26/2022 13:58 EST UA Urobilinogen 0.2 Uro 03/26/2022 13:58 EST UA Nitrite NEGATIVE 03/26/2022 13:58 EST UA Leuk Est NEGATIVE 03/26/2022 13:58 EST Patient/Fretted Instrument Maker Hand Signature Patient Name:VALENCIA SAJAN I have received this information and my questions have been answered. Patient/Fretted Instrument Maker Hand Name: Patient/Fretted Instrument Maker Hand Signature: Relationship to Patient: Witness Name/Signature: Date: Electronically Signed on: 03/26/2022 20:57 ESTSigned by:[facility] Emergency department Note * Melvina Jiménez: PERFORM Event Display: ED Notes Authored Date: [id number] * Melvina Jiménez: PERFORM Event Display: ED Notes Authored Date: [id number] * Kerri Gil: PERFORM Event Display: ED Notes Authored Date: [id number] Patient Care team information Personnel Name: Bernardo Brewer MD Address: Address: [address] [address]- [place]
--- OUTSIDE RECORDS SUMMARY | 2023-11-13 12:54 | XMS_ITS | Continuity of Care Document ---
Author Organization [facility] Address [address] [place] [address] Care Team Providers Care Hazmat Truck Driver Name Role Phone Primeau IPHC, Bernardo Le Primary Care Physician [facility] Date[facility] - 07/31/[address] [address] Discharge Disposition: Home or Self Care Attending Physician: Ruby Jackson PA-C Admitting Physician: Ruby Jackson PA-C Referring Physician: Ruby Jackson PA-C Allergies, Adverse Reactions, Alerts Substance Reaction Severity Status mixed grass pollens allergen extract 1 Unknown [place] Active Seasonal 2 Unknown Active 1Outside Source Comment: Hay Fever 2hay fever Assessment and Plan Future Appointments Immunizations [...] Daily, # 90 tab, 3 Refill(s), Pharmacy: [id number], 180, cm, 03/27/22 11:48:00 EST, Height/Length Dosing, 81, kg, 03/27/22 11:48:00 EST, Weight Dosing Start Date: 09/19/22 Stop Date: 09/14/23 Status: Ordered Gemtesa 75 mg oral tablet 75 mg = 1 tab, Oral, Daily, # 90 tab, 3 Refill(s), Pharmacy: [facility], 180.34, cm, 04/03/23 12:53:00 [...] Daily, # 180 tab, 0 Refill(s), Pharmacy: [facility], 180.34, cm, 04/03/23 12:53:00 EST, Height, 80.74, kg, 04/03/23 12:56:00 EST, Weight Dosing Start Date: 04/10/23 Status: Ordered melatonin 3 mg oral tablet 3 mg = 1 tab, Oral, every day at bedtime, # 60 tab, 6 Refill(s), Pharmacy: [facility], 178, cm, 09/20/22 16:28:00 [...] topical paste Topical, every night at bedtime, [place] teeth, swish for 30 seconds, then spit [...] nxt month 11/10/18: seeing Dr Mcdonough at [facility] and she started him on gabapentin [...] 2 tabs nightly x3 days sent to [facility] pharmacy 07/20/2021. patient would like to come off of his phenobarbital, he plans to discuss with neurology [facility] 07-26-2021 visit: 02/13/2021: Patient is using and benefiting from CPAP 5 to 15 cm, however when he tried using the nasal mask, could not tolerate such high pressures and felt it was too much resistant to breathe against. We decided it was better for him to be on the full facemask AirFit F20 large. Of note he had to pay for the CPAP [id number] as insurance did not cover it based [...] 1 04/05/22 Completed Hip replacement 2 04/14/09 [facility] ed Orthopedic surgery 3 Comp leted Tonsillectomy Completed 1Temporal Artery Biopsy, Bilateral 2Right 3right IP joint fusion Social History Social History Type Response Tobacco Former tobacco user Tobacco Use:. Sex Male US Heart * Edward De Leon E: PERFORM Event Display: Echo Report Authored Date: [id number] Patient Care team information Care Team Personnel Name: Bernardo Brewer MD Position: No Access Member Role: Informed Provider Address: Address: [address] [address]- Care Team Related Persons Name: LINDA VALENCIA Address: Home [address] [place] [address], [id number]
--- OUTSIDE RECORDS SUMMARY | 2023-11-13 12:54 | XMS_ITS | Continuity of Care Document ---
Author Organization [facility] Address [address] [place] [address] Care Team Providers Care Participant Administrator Name Role Phone Primeau IPHC, Bernardo Le Primary Care Physician [facility] Date(s): 07/09/23 - 07/09/[address] [address] Discharge Disposition: Home or Self Care Attending [...] Daily, # 90 tab, 3 Refill(s), Pharmacy: [facility], 180, cm, 03/27/22 11:48:00 EST, Height/Length Dosing, 81, kg, 03/27/22 11:48:00 EST, Weight Dosing Start Date: 09/19/22 Stop Date: 09/14/23 Status: Ordered Gemtesa 75 mg oral tablet 75 mg = 1 tab, Oral, Daily, # 90 tab, 3 Refill(s), Pharmacy: [facility], 180.34, cm, 04/03/23 12:53:00 [...] Daily, # 180 tab, 0 Refill(s), Pharmacy: [facility], 180.34, cm, 04/03/23 12:53:00 EST, Height, 80.74, kg, 04/03/23 12:56:00 EST, Weight Dosing Start Date: 04/10/23 Status: Ordered melatonin 3 mg oral tablet 3 mg = 1 tab, Oral, every day at bedtime, # 60 tab, 6 Refill(s), Pharmacy: [facility], 178, cm, 09/20/22 16:28:00 [...] topical paste Topical, every night at bedtime, [place] teeth, swish for 30 seconds, then spit [...] month 11/10/18: seeing Dr Mcdonough at [facility] and she started him on gabapentin instead [...] 2 tabs nightly x3 days sent to [facility] pharmacy 07/20/2021. patient would like to come off of his phenobarbital, he plans to discuss with neurolog[facility]: 02/13/2021: Patient is using [...] he had to pay for the CPAP [id number] as insurance did not cover it based [...] Former tobacco user Tobacco Use:. Sex Male Ambulatory cardiac rhythm monitor (Holter) study * Giovany Jimenez: PERFORM Event Display: Holter Monitor Authored Date: [id number] SAJAN VALENCIA [id number] Patient placed on Holter Monitor 48 Hourson 07/09/2023. Electronically Signed on 07/09/23 09:46 AM Giovany Jimenez Patient Care team information Care Team Personnel Name: Bernardo Brewer MD Position: No Access Member Role: Informed Provider Address: Address: [address] [address]- Care Team Related Persons Name: LINDA VALENCIA Address: Home [address] [place] [address], [id number]
--- OUTSIDE RECORDS SUMMARY | 2023-11-13 12:54 | XMS_ITS | Continuity of Care Document ---
Author Organization [facility] Address [address] [place] [address] Care Team Providers Care Repair Department Manager Name Role Phone Bernardo Brewer Primary Care Physician Encounter [facility] Date(s): 03/29/22 - 03/29/[address] [address] Discharge Disposition: Home or Self Care Attending [...] Daily, # 180 tab, 6 Refill(s), Pharmacy: [facility] Start Date: 02/08/22 Status: Ordered omeprazole 20 mg oral delayed release capsule 20 mg = 1 cap, Oral, Daily, PRN other (see comment), as needed Start Date: 12/01/21 Status: Ordered PreviDent 5000 Booster 1.1% topical paste Topical, every night at bedtime, [place] teeth, swish for 30 seconds, then spit [...] joint fusion Results Laboratory List Name Date C Reactive Protein [facility] 03/29/22 Sedimentation Rate (ESR) 03/29/22 Most recent to oldest [Reference Range]: 1 C-Reactive Protein [facility] [<10.0 mg/L] <7.0 mg/L 1 *NA* (03/29/22 4:28 PM) ESR, Westergren [0-20 mm/hr] 5 mm/hr (03/29/22 4:28 PM) 1Result Comment: Test performed or referred by The [address] [address] Social History Social History Type Response Tobacco Never tobacco user T obacco Use:. Sex Male Patient Care team information Personnel Name: Bernardo Brewer MD Address: Address: [address]
--- OUTSIDE RECORDS SUMMARY | 2023-11-13 12:55 | XMS_ITS ---
Author Name [facility] [place] [facility] Address [address] [place] [address] Care Team Providers Care Can Sterilizer Name Role Phone ALONDRA SAHNI Primary Care Provider Unavailabl e Insurance Providers: All historical and current Section Date Range: From patient's date of to the date document was created. This section includes the names of all active insurance providers for the patient. Insurance Provider Type of Coverage Plan Name Start of Policy Coverage End of Policy Coverage Group Number Member ID Insurance Provider's Telephone Number Policy Johns's Name Patient's Relationship to Policy Johns [employer] ([place]UECARD) MEDICARE SUPPLEMEN FOUZIA MEDEX 2 Jan 14, 2016 [id number] [place] PATIENT MEDICARE (WNR) MEDICARE (M) PART B Oct 14, 2015 PART B [id number] NU [place] PATIENT MEDICARE (WNR) MEDICARE (M) PART A Oct 13, 2009 PART A [id number] NU [place] PATIENT Selected Encounter This section includes the information on record at [place] for the Encounter. Date/Time Encounter Type Encounter Description Reason Provider Source September 03, 2023 10:00 AM OFFICE O/P NEW LOW 30 MIN DERMATOLOGY ICD-10-CM Z85.828 Personal history of other malignant neoplasm of skin ARYA MACKENZIE Encounter Template Text not used by [facility] Assessments - Encounter Diagnoses This section includes the primary and secondary diagnoses documented for the Encounter. Date/Time Primary/Secondary Diagnosis Diagnosis Name Provider Source September 03, 2023 10:31 AM PRIMARY Personal history of other malignant neoplasm of skin JASE MACKENZIE [facility] September 03, 2023 10:31 AM SECONDARY Encounter for screening for malignant neoplasm of skin JASE MACKENZIE [facility] September 03, 2023 10:31 AM SECONDARY Other rosacea JASE MACKENZIE [facility] September 03, 2023 10:31 AM SECONDARY Xerosis cutis JASE MACKENZIE [facility] Encounter Notes: All associated encounter notes This section contains the clinical notes associated to the Encounter. Date/Time Encounter Note(s) Provider Source September 03, 2023 10:01 AM DERMATOLOGY CONSUL T: LOCAL TITLE: CONSULT-DERMATOLOGY STANDARD TITLE: DERMATOLOGY CONSULT DATE OF NOTE: SEPTEMBER 03, 2023@10:01 ENTRY DATE: SEPTEMBER 03, 2023@10:01:59 AUTHOR: JASE MACKENZIE EXP COSIGNER: URGENCY: STATUS: COMPLETED CC: Requested by primary care provider to see patient for consultation of 'IMPRESSION BASED ON IMAGES AND INFORMATION REVIEWED: PROBLEM A: Diagnosis: Neoplasm uncertain behavior: Ddx includes BCC vs SCC.' HPI: 77 yo MALE with h/o Parkinson's and an atypical lesion on the right lateral cheek, seen via telederm. Had this excised by his nonVA PCP Dr. Bernardo Nichols up in [place], [place] in early June. PT thinks it was a ?BCC. PT decided to keep this appt as his PCP had other things on his face he thought derm should look at - no specifics given. Pt wonders about the red areas of his nose. No personal h/o skin cancer, psoriasis or eczema. Wears SPF when outdoors. PMHx: Parkinson's disease ([facility] [id number]) Restless Legs Syndrome ([facility] [id number]) Atypical nevus of skin ([facility] [id number]) Low Back Pain ([facility] [id number]) FAMHx: no h/o skin cancer SOCHx: -no blistering sunburns during childhood ROS: Feeling well. No other skin complaints. No issues with bleeding. MEDS: Active Outpatient Medications (excluding Supplies): No Medications Found ALLERGIES: Patient has answered NKA PHYSICAL EXAM: WNWD MALE in no acute distress. Alert and oriented x 3 A full-body skin exam was performed which included the hair, scalp, face, ears, conjunctiva, neck, chest, abdomen, back, upper and lower extremities, feet, hands, nails, and ( ) genitals. All areas inspected were within normal limits except for those listed below: -short linear scar on the right cheek without worrisome features; no nodules or scale palpated few scattered brown verrucous papules/plaques on the back -scattered hypo/hyperpigmented macules on the forehead -scattered xerotic scaling on the lower legs/feet without rash -mild scattered telangectasias on the nose without putules or worrisome findings -no worrisome pigmented lesions or rashes A/P: #. 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 pathology (excised by Dr. Bernardo Nichols, PCP) -encouraged pt to have this examined yearly by PCP or derm as well as fbse -he would like to think about this and d/w his PCP -sun protection strongly advised; d/w pt worrisome S/S to monitor for #. Telangectasias, nose: DDX mild rosacea; no neoplasms found -encouraged him to wear wide brimmed hat and SPF 30-50 when outdoors #. Xerosis -educated regarding the role of dry skin in exacerbation of inflammation and itch, as well as the importance of gentle routine skin care in promoting skin barrier function -mild cleansers like Dove -warm, not hot, showers/baths daily -apply emollients (petrolatum jelly or Cerave) to wet skin daily immediately after shower -avoid rubbing or picking at skin -Sarna lotion prn #. Patient was counselled regarding sun avoidance, daily use of sunscreen with an SPF of 30 or greater, long sleeves, brimmed hat. -monthly skin self-exams for lesions changing in size, shape, or color, or non-healing lesions -ABCDs of melanoma # RTC prn per pt's choice. Gave him [place] derm contact info in case he wants to make yearly appt for August 2024. 30 minutes were spent during today's encounter: including face to face, chart and/or outside documentation review, communication with other providers, and encounter documentation. /rachel/ JASE VALADEZ Signed: 09/03/2023 10:31 JASE MACKENZIE [facility]
--- OUTSIDE RECORDS SUMMARY | 2023-11-13 12:55 | XMS_ITS | Encounter Summary ---
Author Name [facility] Organization [facility] [place] Address [address] [place] [address] Care Team Providers Care Head Bone Grinder Name Role Phone ALONDRA SAHNI Primary Care Provider Danielle ware Insurance Providers: All historical and current Section [...] SUPPLEMEN FOUZIA MEDEX 2 Jan 14, 2016 [id number] [place] PATIENT MEDICARE (WNR) MEDICARE (M) PART B Oct 14, 2015 PART B [id number] NU [place] PATIENT MEDICARE (WNR) MEDICARE (M) PART A Oct 13, 2009 PART A [id number] NU [place] PATIENT Selected Encounter This section includes the information on record at [place] for the Encounter. Date/Time Encounter Type Encounter Description Reason Provider Source May 30, 2023 01:00 PM UNLISTED SPEC DERM SVC/PX DERMATOLOGY ICD-10-CM Z13.89 Encounter for screening for other disorder ELAN WAGNER Hammad Encounter Template Text not used by [place] Assessments - Encounter Diagnoses This section includes the primary and secondary diagnoses documented for the Encounter. Date/Time Primary/Secondary Diagnosis Diagnosis Name Provider Source May 30, 2023 10:22 AM PRIMARY Encounter for screening for other disorder CARLA WAGNER [facility] Plan of Treatment: Future Appointments (+ 6 months) and Future Tests (+/- 45 days) The Plan of Treatment section includes future care activities for the patient from all [place] [facility] This section includes future appointments and future orders which are active, pending or scheduled. Future Appointments This section includes appointments that were scheduled to occur 6 months from the date of the Encounter, up to a maximum of 20 appointments. The data comes from all [place] treatment facilities. Appointment Date/Time Appointment Type Appointme nt Facility Name September 03, 2023 10:00 AM AMBULATORY - MEDICINE WHIT Hammad [facility] Social History: Smoking Status (Most current) and Tobacco Use (All prior to encounter date) This section includes the most current, and the historical, smoking and tobacco- related health factors from the [place] facility where the Encounter took place. Current Smoking Status This section includes the most current smoking, or tobacco-related health factor, from the [place] facility where the Encounter took place. Date/Time Current Smoking Status Comment Facil ity May 30, 2023 09:00 AM VA-TOBACCO FORMER USER [facility] Tobacco Use History This section includes a history of the smoking, or tobacco-related health factors, that were collected on or before the date of the Encounter. The data comes from the [place] facility where the Encounter took place. Date/Time Smoking Status/Tobacco Use Comment F acility May 30, 2023 09:00 AM VA-TOBACCO QUIT 15 YRS OR MORE [facility] Feb 20, 2022 11:00 AM VA-TOBACCO FORMER USER [facility] Feb 20, 2022 11:00 AM VA-TOBACCO QUIT 15 YRS OR MORE [facility] Feb 16, 2021 02:00 PM VA-TOBACCO FORMER USER [facility] Feb 16, 2021 02:00 PM VA-TOBACCO QUIT 15 YRS OR MORE [facility] Jan 12, 2020 10:00 AM VA-TOBACCO FORMER USER [facility] Jan 12, 2020 10:00 AM VA-TOBACCO QUIT 15 YRS OR MORE [facility] Encounter Notes: All associated encounter notes This section contains the clinical notes associated to the Encounter. Date/Time Encounter Note(s) Provider Source May 30, 2023 10:17 AM TELEIMAGING NOTE: LOCAL TITLE: CONSULT Teledermatology Imaging Request STANDARD TITLE: TELEIMAGING NOTE DATE OF NOTE: MAY 30, 2023@10:17 ENTRY DATE: MAY 30, 2023@10:17:44 AUTHOR: AMY WAGNER EXP COSIGNER: URGENCY: STATUS: COMPLETED CONSULT Teledermatology Imaging Request Has ADDENDA Teledermatology Consult Request The patient was educated regarding the Teledermatology process at this encounter. Patient DOES consent to have images taken, viewed, and interpreted using the Teledermatology process. This consult addresses: A new condition Images were acquired: In clinic HISTORY: Prior skin history: None reported Have you had a skin cancer before? None Reported Patient reports no family history of melanoma. Taking new med/supplements: None reported Immunosuppression history: None reported Other significant history: Yes no condiitons but wanted Derm aware he had a lot of sun exposure in the past between service and geographical location of residence. Chief Complaint: atyp nevus right cheek at jaw line. 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 Sore that won't heal Onset mid-Mar 2023. 7 mm x 8 mm. Erosive surface. Refer telederm, photos today. Anticipate will need f2f consult [facility] derm. PROBLEM A LOCATION(S): Head/Neck: Right Jaw line DURATION: Onset mid-Mar 2023 SYMPTOMS: Bleeding History, Ulceration History CHANGES: Elevation, Size TREATMENT: No BIOPSY: No Pie Crimping Machine Operator's comments: imaged as per provider order and policy. /rachel/ AMY WAGNER LPN PACT DINING SERVICE INSPECTOR, TCT, CVT/SFT PRECEPTOR Signed: 05/30/2023 10:22 06/06/2023 ADDENDUM STATUS: COMPLETED REMOTE RESULTS JEFF Document from: [facility] Associated on: Jun 05, 2023@00:21:18 LOCAL TITLE: Consult/teledermatology Imaging Report STANDARD TITLE: TELEHEALTH NOTE DATE OF NOTE: JUN 05, 2023@00:17 ENTRY DATE: JUN 05, 2023@00:17:08 AUTHOR: JULIAN FRANCO EXP COSIGNER: URGENCY: STATUS: COMPLETED HISTORY: 77 yo M who denied a hx of skin cancer and a family history of melanoma. He presented to Teledermatology on 05/30/23 with a skin lesion of concern on the Right lateral cheek: Chief Complaint: atyp nevus right cheek at jaw line. 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 Sore that won't heal Onset mid-Mar 2023. 7 mm x 8 mm. Erosive surface. Refer telederm, photos today. Anticipate will need f2f consult [facility] derm. PROBLEM A LOCATION(S): Head/Neck: Right Jawline DURATION: Onset mid-Mar 2023 SYMPTOMS: Bleeding History, Ulceration History CHANGES: Elevation, Size TREATMENT: No BIOPSY: No OVERALL CONSULT/IMAGE QUALITY: Fully satisfactory EXAM: Phototype I Right lateral cheek: 6x5 mm eroded pink nodule IMPRESSION BASED ON IMAGES AND INFORMATION REVIEWED: PROBLEM A: Diagnosis: Neoplasm uncertain behavior: Ddx includes BCC vs SCC RECOMMENDATIONS FOR REFERRING PROVIDER: PROBLEM A: Biopsy: Offer Full Body Skin Exam and biopsy RECOMMENDED FOLLOW-UP: Consult to Dermatology clinic for follow up ELOISE: Jun Cumulative time of review and management: 5 minutes or more /rachel/ Julian Franco MD Sash Maker Signed: 06/05/2023 00:21 END OF REMOTE RESULTS /rachel/ AMY WAGNER LPN PACT DINING SERVICE INSPECTOR, TCT, CVT/SFT PRECEPTOR Signed: 06/06/2023 13:40 AMY WAGNER [facility]
--- OUTSIDE RECORDS SUMMARY | 2023-11-13 12:55 | XMS_ITS ---
Author Name [facility] [place] Address [address] [place] [address] Care Team Providers Care Radiology Equipment Servicer Name Role Phone ALONDRA SAHNI Primary Care [...] SUPPLEMEN FOUZIA MEDEX 2 Jan 14, 2016 [id number] [place]ILL BR[place]NEY PATIENT MEDICARE (WNR) MEDICARE (M) PART B Oct 14, 2015 PART B [id number] NU [place] PATIENT MEDICARE (WNR) MEDICARE (M) PART A Oct 13, 2009 PART A [id number] NU [place] PATIENT Selected Encounter This section includes the information on record at [place] for the Encounter. Date/Time Encounter Type Encounter Description Reason Pro vider Source August 29, 2023 01:49 PM Outpatient Encounter ADMIN PAT ACTIVTIES (MASNONCT) IHE Encounter Template Text not used by VA Plan of Treatment: Future Appointments (+ 6 months) and Future Tests (+/- 45 days) The Plan of Treatment section includes future care activities for the patient from all VA treatmentfacilities. This section includes future appointments and future orders which are active, pending or scheduled. Future Appointments This section includes appointments that were scheduled to occur 6 months from the date of the Encounter, up to a maximum of 20 appointments. The data comes from all [place] treatment facilities. Appointment Date/Time Appointment Type Appointme nt Facility Name September 03, 2023 10:00 AM AMBULATORY - MEDICINE [facility] Encounter Notes: All associated encounter notes This section contains the clinical notes associated to the Encounter. Date/Time Encounter Note(s) Provider Source August 29, 2023 01:49 PM ADMINISTRATIVE NOT E: LOCAL TITLE: Has Admin Note STANDARD TITLE: ADMINISTRATIVE NOTE DATE OF NOTE: AUGUST 29, 2023@13:49 ENTRY DATE: AUGUST 29, 2023@13:49:56 AUTHOR: MARGOT MCCAIN EXP COSIGNER: URGENCY: STATUS: COMPLETED [place] phoned inquiring how long appt w/NELLY MACKENZIE on 09/03/23 would be as he is coordinating a ride for appt. Advised [place] as this is a new pt appt he could expect the appt to take up to an hour. /rachel/ MARGOT MCCAIN AMSA Signed: 08/29/2023 13:52 MARGOT MCCAIN [facility]
--- OUTSIDE RECORDS SUMMARY | 2023-11-13 12:55 | XMS_ITS ---
Author Name [facility] of [facility] [place] Organization [facility] [place] Address [address] [place] [address] Care Team Providers Care Ux Lead Name Role Phone ALONDRA SAHNI Primary Care [...] SUPPLEMEN FOUZIA MEDEX 2 Jan 14, 2016 [id number] [place] BRITNEY PATIENT MEDICARE (WNR) MEDICARE (M) PART B Oct 14, 2015 PART B [id number] NU [place] BRITNEY PATIENT MEDICARE (WNR) MEDICARE (M) PART A Oct 13, 2009 PART A [id number] NU [place] BRITNEY PATIENT Selected Encounter This section includes the information on record at [place] for the Encounter. Date/Time Encounter Type Encounter Description Reason Pro vider Source May 02, 2023 02:07 PM Outpatient Encounter ADMIN PAT ACTIVTIES (MASNONCT) [...] 20 appointments. The data comes from all [place] treatment facilities. Appointment Date/Time Appointment Type Appointme nt Facility Name May 30, 2023 09:00 AM AMBULATORY - NONE [facility] May 30, 2023 01:00 PM [facility]ORY - MEDICINE [facility] September 03, 2023 10:00 AM [facility]ORY - [facility]ICINE [facility] Encounter Notes: All associated encounter notes This section contains the clinical notes associated to the Encounter. Date/Time Encounter Note(s) Provider Source May 02, 2023 02:07 PM ADMINISTRATIVE NOT E: LOCAL TITLE: CCC: SCHEDULING ADMINISTRATION STANDARD TITLE: ADMINISTRATIVE NOTE DATE OF NOTE: MAY 02, 2023@14:07:44 ENTRY DATE: MAY 02, 2023@14:07:44 AUTHOR: SALOME POWER EXP COSIGNER: URGENCY: STATUS: COMPLETED CCC: SCHEDULING ADMINISTRATION Has ADDENDA Patient Demographics Patient Name: SAJAN VALENCIA Patient Primary Phone: [phone] Patient Primary Address: [address] [place] [id number] Patient : 1945 Patient Age: 77 Call Back Number: [phone] Caller/Recipient Relation to Patient: Self Administrative Administrative Note Reason: Other Administrative Note Comments: Jensen is requesting a return call to obtain information on services for both himself and his . He states as they are getting on in years and with health issues, he wants to know what is available to them. i.e. housing (FDC) and health care services. /rachel/ SALOME [facility] AMSA Signed: 05/02/2023 14:07 Receipt Acknowledged By: 05/03/2023 14:41 /es/ ARGENTINA BURLESON Registered Nurse 05/03/2023 07:26 /es/ ENA GUIDRY 06/10/2023 17:00 /es/ KATHIE SOTOMAYOR, ASW-G PRIMARY CARE COMPUTER APPLICATION DEVELOPER, JOHNNY 05/03/2023 ADDENDUM STATUS: COMPLETED Will prioritize patient to be scheduled with new PCP. Scheduling out 6-8 weeks. /rachel/ ARGENTINA BURLESON Registered Nurse Signed: 05/03/2023 14:40 05/06/2023 ADDENDUM STATUS: COMPLETED TC to : 12 minutes TW reached out to to provide information regarding resources available. TW will send information on VA programs. will review information once received, and will call TW with any questions. /rachel/ ENA GUIDRY Signed: 05/06/2023 14:05 SALOME POWER [facility]
--- OUTSIDE RECORDS SUMMARY | 2023-11-13 12:55 | XMS_ITS | Encounter Summary ---
Author Name [facility] [place] [facility] [place] Address [address] [place] [address] Care Team Providers Care External Relations Director Name Role Phone CARLA SAHNIRICK Primary Care Provider Danielle ware Insurance Providers: [...] [place] ([place]ARD) MEDICARE SUPPLEMEN FOUIZA MEDEX 2 Jan 14, 2016 [id number] [place],WILL BRITNEY PATIENT MEDICARE (WNR) MEDICARE (M) PART B Oct 14, 2015 PART B [id number] [place],WILL BRITNEY PATIENT MEDICARE (WNR) MEDICARE (M) PART A Oct 13, 2009 PART A [id number] [place],WILL BRITNEY PATIENT Selected Encounter This section includes the information on record at [place] for the Encounter. Date/Time Encounter Type Encounter Description Reason Pro vider Source Jun 06, 2023 09:24 AM Outpatient Encounter TELEPHONE TRIAGE IHE Encounter Template Text not used by [...] 20 appointments. The data comes from all [place] treatment facilities. Appointment Date/Time Appointment Type Appointme nt Facility Name September 03, 2023 10:00 AM AMBULATORY - MEDICINE [facility] Encounter Notes: All associated encounter notes This section contains the clinical notes associated to the Encounter. Date/Time Encounter Note(s) Provider Source Jun 24, 2023 03:21 PM ADDENDUM: LOCAL TITLE: Addendum STANDARD TITLE: ADDENDUM DATE OF NOTE: JUN 24, 2023@15:21:07 ENTRY DATE: JUN 24, 2023@15:21:07 AUTHOR: PARVEEN ANDREW EXP COSIGNER: URGENCY: STATUS: COMPLETED received letter and called office. [phone] /rachel/ PARVEEN ANDREW Signed: 06/24/2023 15:22 Receipt Acknowledged By: 07/03/2023 13:00 /danay WAGNER LPN PACT FABRIC WORKER, TCT, CVT/SFT PRECEPTOR --- Original Document --- 06/06/23 Administrative Note/Primary Care: called to follow up with pictures taken at recent appt, call dropped and attempts to reconnect failed # /es/ WALDEMAR CASTRO Signed: 06/06/2023 09:46 Receipt Acknowledged By: 06/14/2023 14:44 /rachel/ AMY WAGNER LPN PACT FABRIC WORKER, TCT, CVT/SFT PRECEPTOR 06/06/2023 ADDENDUM STATUS: COMPLETED REMOTE RESULTS JEFF Document from: [facility] Associated on: Jun 05, 2023@00:21:18 LOCAL TITLE: Consult/teledermatology Imaging Report STANDARD TITLE: TELEHEALTH NOTE DATE OF NOTE: JUN 05, 2023@00:17 ENTRY DATE: JUN 05, 2023@00:17:08 AUTHOR: ROSHNI FRANCO EXP COSIGNER: URGENCY: STATUS: COMPLETED HISTORY: [...] photos today. Anticipate will need f2f consult [facility] derm. PROBLEM A LOCATION(S): Head/Neck: Right Jawline [...] review and management: 5 minutes or more /danay Franco MD Sheet Metal Mechanic Signed: 06/05/2023 00:21 END OF REMOTE RESULTS * /danay WAGNER LPN PACT FABRIC WORKER, TCT, CVT/SFT PRECEPTOR Signed: 06/06/2023 13:39 06/06/2023 ADDENDUM STATUS: COMPLETED Calling to relay result later this afternoon. PCP will be entering f2f derm for full body exam ddx BCC vs Scc. ELOISE: 06/25/2022 /danay WAGNER LPN PACT FABRIC WORKER, TCT, CVT/SFT PRECEPTOR Signed: 06/06/2023 14:13 Receipt Acknowledged By: 06/06/2023 16:44 /es/ Lan Sahni PA-C 06/06/2023 ADDENDUM STATUS: COMPLETED Call out to to relay results of teledermatolgy consult and plan of care moving forward. No answer. HIPAA compliant VM left with request for return call back to nursing. /danay WAGNER LPN PACT FABRIC WORKER, TCT, CVT/SFT PRECEPTOR Signed: 06/06/2023 14:27 06/14/2023 ADDENDUM STATUS: COMPLETED Additional attempt to call and make aware of of teledermatolgy results. No answer. Voicemail left. Asking AMSA to please send letter making aware [place] nursing is trying to reach him to relay results of teledermatolgy consult. /danay WAGNER LPN PACT FABRIC WORKER, TCT, CVT/SFT PRECEPTOR Signed: 06/14/2023 14:46 Receipt Acknowledged By: 06/14/2023 14:53 /rachel/ PARVEEN ANDREW 06/17/2023 09:03 /es/ WALDEMAR GIL [facility] 07/03/2023 ADDENDUM STATUS: UNSIGNED You may not VIEW this UNSIGNED Addendum. PARVEEN ANDREW [facility] Jun 14, 2023 02:44 PM ADDENDUM: LOCAL TITLE: Addendum STANDARD TITLE: ADDENDUM DATE OF NOTE: JUN 14, 2023@14:44:48 ENTRY DATE: JUN 14, 2023@14:44:49 AUTHOR: AMY WAGNER EXP COSIGNER: URGENCY: STATUS: COMPLETED Additional attempt to call and make aware of of teledermatolgy results. No answer. Voicemail left. Asking AMSA to please send letter making aware [place] nursing is trying to reach him to relay results of teledermatolgy consult. /danay WAGNER LPN PACT FABRIC WORKER, TCT, CVT/SFT PRECEPTOR Signed: 06/14/2023 14:46 Receipt Acknowledged By: 06/14/2023 14:53 /danay ANDREW 06/17/2023 09:03 /es/ WALDEMAR GIL AMSA --- Original Document --- 06/06/23 Administrative Note/Primary Care: called to follow up with pictures taken at recent appt, call dropped and attempts to reconnect failed # /es/ WALDEMAR GIL AMSA Signed: 06/06/2023 09:46 Receipt Acknowledged By: 06/14/2023 14:44 /es/ AMY WAGNER, FABRIC WORKER PACT FABRIC WORKER, TCT, CVT/SFT PRECEPTOR 06/06/2023 ADDENDUM STATUS: COMPLETED REMOTE RESULTS JEFF Document from: [facility] Associated on: Jun 05, 2023@00:21:18 LOCAL TITLE: Consult/teledermatology Imaging Report STANDARD TITLE: TELEHEALTH NOTE DATE OF NOTE: JUN 05, 2023@00:17 ENTRY DATE: JUN 05, 2023@00:17:08 AUTHOR: ROSHNI FRANCO COSIGNER: URGENCY: STATUS: COMPLETED HISTORY: 77 yo [...] and management: 5 minutes or more /rachel/ Roshni Franco MD Sheet Metal Mechanic Signed: 06/05/2023 00:21 END OF REMOTE RESULTS * /danay WAGNER LPN PACT FABRIC WORKER, TCT, CVT/SFT PRECEPTOR Signed: 06/06/2023 13:39 06/06/2023 ADDENDUM STATUS: COMPLETED Calling to relay result later this afternoon. PCP will be entering f2f derm for full body exam ddx BCC vs Scc. ELOISE: 06/25/2022 /danay WAGNER LPN PACT FABRIC WORKER, TCT, CVT/SFT PRECEPTOR Signed: 06/06/2023 14:13 Receipt Acknowledged By: 06/06/2023 16:44 /rachel/ Lan Sahni PA-C 06/06/2023 ADDENDUM STATUS: COMPLETED Call out to to relay results of teledermatolgy consult and plan of care moving forward. No answer. HIPAA compliant VM left with request for return call back to nursing. /AUNDREA LoftonT FABRIC WORKER, TCT, CVT/SFT PRECEPTOR Signed: 06/06/2023 14:27 AMY WAGNER [facility] Jun 06, 2023 02:12 PM ADDENDUM: LOCAL TITLE: Addendum STANDARD TITLE: ADDENDUM DATE OF NOTE: JUN 06, 2023@14:12:15 ENTRY DATE: JUN 06, 2023@14:12:16 AUTHOR: AMY WAGNER EXP COSIGNER: URGENCY: STATUS: COMPLETED Calling to relay result later this afternoon. PCP will be entering f2f derm for full body exam ddx BCC vs Scc. ELOISE: 06/25/2022 /rachel/ AMY WAGNER, FABRIC WORKER PACT FABRIC WORKER, TCT, CVT/SFT PRECEPTOR Signed: 06/06/2023 14:13 Receipt Acknowledged By: 06/06/2023 16:44 /es/ Lan Sahni PA-C --- Original Document --- 06/06/23 Administrative Note/Primary Care: called to follow up with pictures taken at recent appt, call dropped and attempts to reconnect failed # /es/ WALDEMAR GIL AMSA Signed: 06/06/2023 09:46 Receipt Acknowledged By: * AWAITING SIGNATURE * AMY WAGNER 06/06/2023 ADDENDUM STATUS: COMPLETED REMOTE RESULTS JEFF Document from: [facility] Associated on: Jun 05, 2023@00:21:18 LOCAL TITLE: Consult/teledermatology Imaging Report STANDARD TITLE: TELEHEALTH NOTE DATE OF NOTE: JUN 05, 2023@00:17 ENTRY DATE: JUN 05, 2023@00:17:08 AUTHOR: ROSHNI FRANCO EXP COSIGNER: URGENCY: STATUS: COMPLETED HISTORY: [...] photos today. Anticipate will need f2f consult [facility] derm. PROBLEM A LOCATION(S): Head/Neck: Right Jawline [...] and management: 5 minutes or more /rachel/ Roshni Franco MD Sheet Metal Mechanic Signed: 06/05/2023 00:21 END OF REMOTE RESULTS * /danay WAGNER LPN PACT FABRIC WORKER, TCT, CVT/SFT PRECEPTOR Signed: 06/06/2023 13:39 06/06/2023 ADDENDUM STATUS: COMPLETED Call out to to relay results of teledermatolgy consult and plan of care moving forward. No answer. HIPAA compliant left with request for return call back to nursing. /danay WAGNER LPN PACT FABRIC WORKER, TCT, CVT/SFT PRECEPTOR Signed: 06/06/2023 14:27 AMY WAGNER [facility] Jun 06, 2023 09:24 AM PRIMARY CARE ADMIN ISTRATIVE NOTE: LOCAL TITLE: Administrative Note/Primary Care STANDARD TITLE: PRIMARY CARE ADMINISTRATIVE NOTE DATE OF NOTE: JUN 06, 2023@09:24 ENTRY DATE: JUN 06, 2023@09:26:24 AUTHOR: WALDEMAR GIL EXP COSIGNER: URGENCY: STATUS: COMPLETED Administrative Note/Primary Care Has ADDENDA called to follow up with pictures taken at recent appt, call dropped and attempts to reconnect failed # /es/ WALDEMAR GIL AMSA Signed: 06/06/2023 09:46 Receipt Acknowledged By: 06/14/2023 14:44 /es/ AMY WAGNER, FABRIC WORKER PACT FABRIC WORKER, TCT, CVT/SFT PRECEPTOR 06/06/2023 ADDENDUM STATUS: COMPLETED REMOTE RESULTS JEFF Document from: [facility] Associated on: Jun 05, 2023@00:21:18 LOCAL TITLE: Consult/teledermatology Imaging Report STANDARD TITLE: TELEHEALTH NOTE DATE OF NOTE: JUN 05, 2023@00:17 ENTRY DATE: JUN 05, 2023@00:17:08 AUTHOR: ROSHNI FRANCO EXP COSIGNER: URGENCY: STATUS: COMPLETED HISTORY: [...] photos today. Anticipate will need f2f consult [facility] derm. PROBLEM A LOCATION(S): Head/Neck: Right Jawline [...] review and management: 5 minutes or more /danay Franco MD Sheet Metal Mechanic Signed: 06/05/2023 00:21 END OF REMOTE RESULTS * /danay WAGNER LPN PACT FABRIC WORKER, TCT, CVT/SFT PRECEPTOR Signed: 06/06/2023 13:39 06/06/2023 ADDENDUM STATUS: COMPLETED Calling to relay result later this afternoon. PCP will be entering f2f derm for full body exam ddx BCC vs Scc. ELOISE: 06/25/2022 /danay WAGNER LPN PACT FABRIC WORKER, TCT, CVT/SFT PRECEPTOR Signed: 06/06/2023 14:13 Receipt Acknowledged By: 06/06/2023 16:44 /rachel/ Lan Sahni PA-C 06/06/2023 ADDENDUM STATUS: COMPLETED Call out to to relay results of teledermatolgy consult and plan of care moving forward. No answer. HIPAA compliant VM left with request for return call back to nursing. /danay WAGNER LPN PACT FABRIC WORKER, TCT, CVT/SFT PRECEPTOR Signed: 06/06/2023 14:27 06/14/2023 ADDENDUM STATUS: COMPLETED Additional attempt to call and make aware of of teledermatolgy results. No answer. Voicemail left. Asking AMSA to please send letter making aware [facility] is trying to reach him to relay results of teledermatolgy consult. /danay WAGNER LPN PACT FABRIC WORKER, TCT, CVT/SFT PRECEPTOR Signed: 06/14/2023 14:46 Receipt Acknowledged By: 06/14/2023 14:53 /danay ANDREW 06/17/2023 09:03 /rachel/ WALDEMAR CASTRO 06/24/2023 ADDENDUM STATUS: COMPLETED [place] received letter and called office. [phone] /es/ PARVEEN ANDREW Signed: 06/24/2023 15:22 Receipt Acknowledged By: 07/03/2023 13:00 /rachel/ AMY WAGNER LPN PACT FABRIC WORKER, TCT, CVT/SFT PRECEPTOR 07/03/2023 ADDENDUM STATUS: COMPLETED Results relayed to and he is already schedueld for f2f [facility] august 2023. /rachel/ AMY WAGNER LPN PACT FABRIC WORKER, TCT, CVT/SFT PRECEPTOR Signed: 07/03/2023 13:01 [facility]
--- OUTSIDE RECORDS SUMMARY | 2023-11-13 12:55 | XMS_ITS | Clinical Summary ---
Author Organization [facility] Address [facility] [place] [address] Care Team Providers Care Lead Javascript Engineer Name Role Phone Bernardo Nichols MD Primary Care Provider + [phone] Allergies No known active allergies Medications Medication Sig Dispensed Refills Start Date End Date Status simvastatin (ZOCOR) 40 mg Tablet Take 40 mg by mouth nightly. Active carBAMazepine (TEGRETOL) 100 mg Tablet, Chewable Take 200 mg by mouth nightly. Active aspirin 81 mg Tablet, Delayed Release (E.C.) Take 81 mg by mouth nightly. Active magnesium 250 mg Tablet Take 500 mg by mouth nightly. Active metoprolol tartrate (LOPRESSOR) 50 mg Tablet Take 50 mg by mouth nightly. Active nitroGLYcerin (NITROSTAT) 0.4 mg Tablet, Sublingual Place 0.4 mg under the tongue every 5 minutes as needed for Chest pain. Active Social History Tobacco Use Types Packs/Day Years Used Date Smoking Tobacco: Former Cigarettes Q uit: 01/14/1977 Smokeless Tobacco: Never Alcohol Use Standard Drinks/Week Comments Yes 2 (1 standard drink = 0.6 oz pur e alcohol) per week Sex and Gender Information Value Date Recorded Sex Assigned at Not on file Gender Identity Not on file Sexual Orientation Not on file Last Filed Vital Signs Vital Sign Reading Time Taken Comments Blood Pressure 125/60 01/14/2018 6:00 PM EDT Pulse 52 01/14/2018 4:30 PM EDT Temperature 36.6 ??C (97.9 ??F) 01/14/2018 4:30 PM ED T Respiratory Rate 20 01/14/2018 6:00 PM EDT Oxygen Saturation 93% 01/14/2018 6:00 PM EDT Inhaled Oxygen Concentration - - Weight 87.5 kg (192 lb 14.4 oz) 01/14/2018 1:54 PM EDT Height 177.8 cm (5' 10) 01/14/2018 10: 10 AM EDT Body Mass Index 27.68 01/14/2018 10:10 AM EDT Plan of Treatment Health Maintenance Due Date Last Done Comments Hepatitis C Screening 1962 Tdap adult 10/26/1963 Tetanus vaccine 10/26/1963 Zoster vaccine (1 of 2) 1994 Advance Directive 10/26/1999 Pneumoccocal Vaccine: 65+ (1 of 1 - PCV) 2009 Covid-19 Vaccine (4 - 2022-24 season) 2022 11/07/2021, 06/20/2020, 05/23/2020 Influenza (Flu) vaccine (1 o f 1 - Influenza standard series) 12/15/2023 Advance Directives * Full Code (Latest Code Status on File) Date Activated Date Inactivated Comments 01/14/2018 10:39 AM 01/14/2018 9:06 PM Question Answer Comments Does patient have capacity to make decision: Yes Care Teams Lead Javascript Engineer Relationship Specialty Start Date End Date Bernardo Nichols MD [address] [place] [address] PCP - General General Internal Medicine 01/10/18
--- OUTSIDE RECORDS SUMMARY | 2023-11-13 12:55 | XMS_ITS | Encounter Summary ---
Author Name [facility] [place] [facility] [place] [facility] [place] Address [address] [place] [address] Care Team Providers Care Leasing Agent Name Role Phone BORA ALONDRA Primary Care Provider Danielle ware Insurance Providers: [...] SUPPLEMEN FOUZIA MEDEX 2 Jan 14, 2016 [id number] [place] PATIENT MEDICARE (WNR) MEDICARE (M) PART B Oct 14, 2015 PART B [id number] [place]ILL BRITNEY PATIENT MEDICARE (WNR) MEDICARE (M) PART A Oct 13, 2009 PART A [id number] [place] PATIENT Selected Encounter This section includes the information on record at [place] for the Encounter. Date/Time Encounter Type Encounter Description Reason Pro vider Source Jun 20, 2023 10:43 AM Outpatient Encounter COMMUNITY CARE CONSULT IHE Encounter Template Text not used by [...] 10:00 AM AMBULATORY - MEDICINE [facility] Encounter Notes: All associated encounter notes This section contains the clinical notes associated to the Encounter. Date/Time Encounter Note(s) Provider Source Jun 20, 2023 10:43 AM NONVA NOTE: LOCAL TITLE: COMMUNITY CARE-DENG SELF PRESENTING CARE COORD PLAN STANDARD TITLE: NONVA NOTE DATE OF NOTE: JUN 20, 2023@10:43 ENTRY DATE: JUN 24, 2023@10:43:56 AUTHOR: HERNANDO DUVAL EXP COSIGNER: URGENCY: STATUS: COMPLETED COMMUNITY CARE-DENG SELF PRESENTING CARE COORD PLAN NOTE Has ADDENDA Emergency Notification Intake Date Presenting to the Facility: Jun Method of Contact: Notified from [employer] worklist Notification ID: [id number] [facility] Referral #: [id number] [facility] Hospital Name: Hospital: [facility] Address: City: [place] State: [place] Zip Code: [address] [facility] Facility Point of Contact: Name: Phone: Chief complaint: dizziness Primary Diagnosis: Disposition Unknown at time of intake note entry Alerting PACT to ED visit to coordinate any follow-up needed. Records requested. /rachel/ HERNANDO SMITH, RN EMERGENCY TRAINING DEVELOPMENT SPECIALIST Signed: 06/24/2023 10:45 Receipt Acknowledged By: 06/25/2023 11:31 /rachel/ ARGENTINA BURLESON Registered Nurse 06/24/2023 12:36 /rachel/ ADY CALIXTO Intermediate Welder Setter Resistance Machine 06/24/2023 ADDENDUM STATUS: COMPLETED Please see NON [place] Medical records Note dated 06/20/23 /rachel/ ADY CALIXTO Intermediate Welder Setter Resistance Machine Signed: 06/24/2023 12:36 HERNANDO DUVAL [facility]
--- OUTSIDE RECORDS SUMMARY | 2023-11-13 12:55 | XMS_ITS | Encounter Summary ---
Author Name [facility] [place] [facility] [place] Organization [facility] [place] Address [address] [place] [id number] Care Team Providers Care Coffee Farmer Name Role Phone CARLA SAHNIRICK Primary Care [...] SUPPLEMEN FOUZIA MEDEX 2 Jan 14, 2016 [id number] [place],WILL BRITNEY PATIENT MEDICARE (WNR) MEDICARE (M) PART B Oct 14, 2015 PART B [id number] [id number] [place],WILL BRITNEY PATIENT MEDICARE (WNR) MEDICARE (M) PART A Oct 13, 2009 PART A [id number] [place],WILL BRITNEY PATIENT Selected Encounter This section includes the information on record at ID for the Encounter. Date/Time Encounter Type Encounter Description Reason Provider Source Jun 05, 2023 12:17 AM Outpatient Encounter DERMATOLOGY ICD-10-CM D48.5 Neoplasm of uncertain behavior of skin JULIAN FRANCO Hammad Encounter Template Text not used by [place] Assessments - Encounter Diagnoses This section includes the primary and secondary diagnoses documented for the Encounter. Date/Time Primary/Secondary Diagnosis Diagnosis Name Provider Source Jun 05, 2023 12:21 AM PRIMARY Neoplasm of uncertain behavior of skin [facility] Plan of Treatment: Future Appointments (+ 6 months) and Future Tests (+/- 45 days) The Plan of Treatment section includes future care activities for the patient from all [place] treatmentfacilities. This section includes future appointments and [...] 03, 2023 10:00 AM AMBULATORY - MEDICINE [facility] Hammad [facility] Encounter Notes: All associated encounter notes This section contains the clinical notes associated to the Encounter. Date/Time Encounter Note(s) Provider Source Jun 05, 2023 12:17 AM TELEHEALTH NOTE: LOCAL TITLE: Consult/teledermatology Imaging Report STANDARD TITLE: [...] photos today. Anticipate will need f2f consult [facility] derm. PROBLEM A LOCATION(S): Head/Neck: Right Jawline [...] minutes or more /rachel/ Julian Franco MD Crop Scout Signed: 06/05/2023 00:21 JULIAN FRANCO [facility]
--- OUTSIDE RECORDS SUMMARY | 2023-11-13 12:55 | XMS_ITS | Encounter Summary ---
[place] [address] Care Team Providers Care Facilities Mechanical Design Engineer Name Role Phone Bernardo Nichols MD Primary Care Provider + [phone] Reason for Referral * Diagnostic Test (Routine) - Closed Specialty Diagnoses / Procedures Referred By Nikhil arita Referred To Contact Cardiology Diagnoses Atrial fibrillation, unspecified type Procedures Mobile Echo Trell Deal PA [address] [place] [phone] [facility] [place] [address] Referral ID Status Reason Start Date Expiration Date V isits Requested Visits Authorized [id number] Closed Specialty Service Requested 07/31/2023 07/30/2024 1 1 Reason for Visit * Diagnostic Test (Routine) - Closed Specialty Diagnoses / Procedures Referred By Contac t Referred To Contact Cardiology Diagnoses Atrial fibrillation, unspecified type Procedures Mobile Trell Stallings PA [address] [place] [phone] [facility] [place] [address] Referral ID Status Reason Start Date Expiration Date V isits Requested Visits Authorized [id number] Closed Specialty Service Requested 07/31/2023 07/30/2024 1 1 Encounter Details Date Type Department Care Team (Latest Contact Info) Description 07/31/2023 2:24 PM EDT - 07/31/2023 11:59 PM EDT Hospital Encounter [place] [phone] Trell Deal PA [address] [place] [phone] Atrial fibrillation, unspecified type Discharge Disposition: Home Social History Tobacco Use Types Packs/Day Years Used Date Smoking Tobacco: Former Cigarettes Q uit: 01/14/1977 Smokeless Tobacco: Never Alcohol Use Standard Drinks/Week Comments Yes 2 (1 standard drink = 0.6 oz pur e alcohol) per week Sex and Gender Information Value Date Recorded Sex Assigned at Not on file Gender Identity Not on file Sexual Orientation Not on file documented as of this encounter Medications at Time of Discharge Medication Sig Dispensed Refills Start Date End Date simvastatin (ZOCOR) 40 mg Tablet Take 40 mg by mouth nightly. carBAMazepine (TEGRETOL) 100 mg Tablet, Chewable Take 200 mg by mouth nightly. aspirin 81 mg Tablet, Delayed Release (E.C.) Take 81 mg by mouth nightly. magnesium 250 mg Tablet Take 500 mg by mouth nightly. metoprolol tartrate (LOPRESSOR) 50 mg Tablet Take 50 mg by mouth nightly. nitroGLYcerin (NITROSTAT) 0.4 mg Tablet, Sublingual Place 0.4 mg under the tongue every 5 minutes as needed for Chest pain. documented as of this encounter Plan of Treatment Not on file documented as of this encounter Procedures Procedure Name Priority Date/Time Associated Diagnosis Comments ECHO COMPLETE Routine 07/31/2023 2:25 PM EDT Atrial fibrillation, unspecified type documented in this encounter Results * ECHO COMPLETE (07/31/2023 2:25 PM EDT) Anatomical Region Laterality Modality Other 07/31/2023 1:24 PM EDT Narrative 07/31/2023 4:58 PM [place]T [address] [place] [address] ? Echocardiogram Report Name: JIM GONZALEZ ? Study Date: 07/31/2023 01:24 PM ? Patient Location: : 1945 ? Height: 178 cm ? Account: [id number] Age: 77 yrs ? Weight: 88 kg Gender: Male ?BSA: 2.1 m2 Ordering Physician: TRELL DEAL Referring Physician: TRELL DEAL Performed By: Dotty Quick RDCS Reason For Study: Unspecified atrial fibrillation. Exam Location: [facility]. Interpretation Summary Left ventricular size and systolic function is normal. Left ventricular ejection fraction is estimated visually at 65-70%. Normal right ventricle. Patent foramen ovale on color doppler. No significant valvular abnormalities. No prior studies available for direct comparison. Procedure Complete-[id number]. Satisfactory quality. There is normal sinus rhythm. Left Ventricle Left ventricle is of normal size. Wall thickness is normal. Left ventricular systolic function is normal. Left ventricular ejection fraction is estimated visually at 65-70%. There are no segmental wall motion abnormalities. Right Ventricle The right ventricle is of normal size. Right ventricular systolic function is normal. Left Atrium The left atrium is normal. A patent foramen ovale is identified with color Doppler. Right Atrium The right atrium is normal. A prominent eustachian valve is present (normal embryologic variant). Aortic Valve The aortic valve is tricuspid. There is mild aortic stenosis. There is no aortic regurgitation. Mitral Valve The mitral valve leaflets are thickened. Chordal/leaflet tip systolic anterior motion without LVOT obstruction. There is no mitral stenosis. There is trace mitral regurgitation. Tricuspid Valve The tricuspid valve is structurally normal. There is mild tricuspid regurgitation. Pulmonic Valve The pulmonic valve appears to be structurally normal. There is no valvular pulmonic stenosis. There is trace pulmonic valve regurgitation. Great Arteries The aortic root is of normal size. No abnormalities are identified. Ascending aorta is normal in size. No abnormalities of the pulmonary artery are identified. Venous Inferior vena cava is normal in size. Inferior vena cava collapse greater than 50% with respiration. Pericardium/Pleural The pericardium appears normal. Hemodynamics Left ventricular diastolic function is normal. The peak right ventricular systolic pressure is 37 mmHg. ? 2D Measurements ? Volumes ?IVSd: 1.0 cm ? LA Volume Index: ?LVIDd: 4.9 cm ?LVIDs: 2.3 cm ?18.7 ml/m2 ?LVPWd: 0.92 cm ? SV(LVOT): 88.3 ml ? LV Stroke Volume: 88.3 ml ?RWT: 0.37 {ratio} ?SI(LVOT): 42.9 ml/m2 ?LV mass(C)d: 173.7 grams ?LV mass(C)dI: 84.3 grams/m2 ?Ao root diam: 3.2 cm ?Ao root diam index: 1.5 ?asc Aorta Diam: 3.2 cm ?LVOT diam: 2.3 cm ?TAPSE_phl: 2.5 cm Doppler ?3D/Strain/TomTec LV V1 VTI: 20.9 cm ?LV GLS (S3P): -18.2 % LVOT max Velocity: 108.2 cm/sec MV E max theo: 56.3 cm/sec MV A max theo: 76.0 cm/sec MV E/A: 0.74 MV dec time: 0.13 sec Lat Peak E' Theo: 8.5 cm/sec E/ e' (lat): 6.6 Med Peak E' Theo: 8.6 cm/sec E/e' (med): 6.5 E/e' Average: 6.6 TR max theo: 256.9 cm/sec RVSP(TR): 29.8 mmHg I ?WMSI = 1.00 ? % Normal = 100 ?Segments ??Size X - Cannot ?? 1 - Normal ?? 2 - ? 3 - Akinetic 4 - ?1-2 ? small Interpret ? Hypokinetic ?Dyskinetic ?? 3-5 ? moderate 5 - ? 6-14 ?large Aneurysmal ?15-16 ?? diffuse Procedure Note Spencer Goff MD - 07/31/2023 [address] [place] [id number] Echocardiogram Report Name: GONZALEZJIM Study Date: 07/31/2023 01:24 PM Patient Location: : 1945 Height: 178 cmAccount: [id number] Age: 77 yrs Weight: 88 kg Gender: Male BSA: 2.1 m2 Ordering Physician: TRELL DEAL Referring Physician: TRELL DEAL Performed By: Dotty Quick RDCS Reason For Study: Unspecified atrial fibrillation. Exam Location: [facility]. Interpretation Summary Left ventricular size and systolic function is normal. Left ventricularejection fraction is estimated visually at 65-70%. Normal right ventricle. Patent foramen ovale on color doppler. No significant valvular abnormalities. No prior studies available for direct comparison. Procedure Complete-[id number]. Satisfactory quality. There is normal sinus rhythm. Left Ventricle Left ventricle is of normal size. Wall thickness is normal. Leftventricular systolic function is normal. Left ventricular ejection fraction isestimated visually at 65-70%. There are no segmental wall motion abnormalities. Right Ventricle The right ventricle is of normal size. Right ventricular systolic functionis normal. Left Atrium The left atrium is normal. A patent foramen ovale is identified withcolor Doppler. Right Atrium The right atrium is normal. A prominent eustachian valve is present(normal embryologic variant). Aortic Valve The aortic valve is tricuspid. There is mild aortic stenosis. There is noaortic regurgitation. Mitral Valve The mitral valve leaflets are thickened. Chordal/leaflet tip systolicanterior motion without LVOT obstruction. There is no mitral stenosis. There istrace mitral regurgitation. Tricuspid Valve The tricuspid valve is structurally normal. There is mild tricuspidregurgitation. Pulmonic Valve The pulmonic valve appears to be structurally normal. There is novalvular pulmonic stenosis. There is trace pulmonic valve regurgitation. Great Arteries The aortic root is of normal size. No abnormalities are identified.Ascending aorta is normal in size. No abnormalities of the pulmonary artery areidentified. Venous Inferior vena cava is normal in size. Inferior vena cava collapse greaterthan 50% with respiration. Pericardium/Pleural The pericardium appears normal. Hemodynamics Left ventricular diastolic function is normal. The peak right ventricularsystolic pressure is 37 mmHg. 2D Measurements Volumes IVSd: 1.0 cm LA VolumeIndex: LVIDd: 4.9 cm LVIDs: 2.3 cm 18.7 ml/m2 LVPWd: 0.92 cm SV(LVOT): 88.3ml LV Stroke Volume:88.3 ml RWT: 0.37 {ratio} SI(LVOT): 42.9ml/m2 LV mass(C)d: 173.7 grams LV mass(C)dI: 84.3 grams/m2 Ao root diam: 3.2 cm Ao root diam index: 1.5 asc Aorta Diam: 3.2 cm LVOT diam: 2.3 cm TAPSE_phl: 2.5 cm Doppler 3D/Strain/TomTec LV V1 VTI: 20.9 cm LV GLS (S3P): -18.2 % LVOT max Velocity: 108.2 cm/sec MV E max theo: 56.3 cm/sec MV A max theo: 76.0 cm/sec MV E/A: 0.74 MV dec time: 0.13 sec Lat Peak E' Theo: 8.5 cm/sec E/ e' (lat): 6.6 Med Peak E' Theo: 8.6 cm/sec E/e' (med): 6.5 E/e' Average: 6.6 TR max theo: 256.9 cm/sec RVSP(TR): 29.8 mmHg I WMSI = 1.00 % Normal = 100 SegmentsSize X - Cannot 1 - Normal 2 - 3 - Akinetic 4 - 1-2small Interpret Hypokinetic Dyskinetic 3-5moderate 5 - 6-14large Aneurysmal 15-16diffuse Trell VALADEZ ECHO ORDERABLES documented in this encounter Visit Diagnoses Diagnosis Atrial fibrillation, unspecified type documented in this encounter Care Teams Facilities Mechanical Design Engineer Relationship Specialty Start Date End Date Bernardo Nichols MD [address] [address] PCP - General General Internal Medicine 01/10/18 documented as of this encounter
--- OUTSIDE RECORDS SUMMARY | 2023-11-13 12:55 | XMS_ITS | Encounter Summary ---
Author Name [facility] [place] Organization [facility] [place] Address [address] [place] [id number] Care Team Providers Care Ortho Nurse Name Role Phone ALONDRA SAHNI Primary Care Provider Unavailarash ware Insurance Providers: All historical and current [...] SUPPLEMEN FOUZIA MEDEX 2 Jan 14, 2016 [id number] [place] PATIENT MEDICARE (WNR) MEDICARE (M) PART B Oct 14, 2015 PART B [id number] [place] BR[place]NEY PATIENT MEDICARE (WNR) MEDICARE (M) PART A Oct 13, 2009 PART A [id number] [place] PATIENT Selected Encounter This section includes the information on record at [place] for the Encounter. Date/Time Encounter Type Encounter Description Reason Pro vider Source Nov 16, 2022 12:00 PM Outpatient Encounter COMMUNITY CARE CONSULT IHE Encounter Template Text not used by [place] Encounter Notes: All associated encounter notes This section contains the clinical notes associated to the Encounter. Date/Time Encounter Note(s) Provider Source Nov 16, 2022 12:00 PM NONVA CONSULT: LOCAL TITLE: COMMUNITY CARE CONSULT RESULT NOTE STANDARD TITLE: NONVA CONSULT DATE OF NOTE: NOV 16, 2022@12:00 ENTRY DATE: NOV 23, 2022@08:12:59 AUTHOR: O'TIKI,CRISTA R EXP COSIGNER: URGENCY: STATUS: COMPLETED VistA Imaging - Scanned Document Consult / Referral: Sep 20 (s) COMMUNITY CARE-PHYSICAL THERAPY Cons Consult # [id number] Date of Service (Procedure/Event): 11/16/2022 Note Title: COMMUNITY CARE CONSULT RESULT NOTE [facility] SCANNED DOCUMENT SIGNATURE NOT REQUIRED Electronically Filed: 11/23/2022 by: CRISTA LOVING ADVANCED CAN WORKER [facility]ING [facility]
--- OUTSIDE RECORDS SUMMARY | 2023-11-13 12:55 | XMS_ITS | Encounter Summary ---
Author Name [facility] [place] Organization [facility] Address [address] [place] [address] Care Team Providers Care Wind Turbine Blade Repair Technician Name Role Phone ALONDRA SAHNI Primary Care [...] SUPPLEMEN FOUZIA MEDEX 2 Jan 14, 2016 [id number] [place] PATIENT MEDICARE (WNR) MEDICARE (M) PART B Oct 14, 2015 PART B [id number] [id number] [place] PATIENT MEDICARE (WNR) MEDICARE (M) PART A Oct 13, 2009 PART A [id number] [place] BR[place] PATIENT Selected Encounter This section includes the information on record at [place] for the Encounter. Date/Time Encounter Type Encounter Description Reason Pro vider Source Jun 19, 2023 12:00 PM Outpatient Encounter ADMIN PAT ACTIVTIES (MASNONCT) [...] 20 appointments. The data comes from all [place] treatment facilities. Appointment Date/Time Appointment Type Appointme nt Facility Name September 03, 2023 10:00 AM AMBULATORY - MEDICINE [facility] Encounter Notes: All associated encounter notes This section contains the clinical notes associated to the Encounter. Date/Time Encounter Note(s) Provider Source Jun 19, 2023 12:00 PM NONVA NOTE: LOCAL TITLE: NonVA Medical Records STANDARD TITLE: NONVA NOTE DATE OF NOTE: JUN 19, 2023@12:00 ENTRY DATE: JUL 10, 2023@07:49:58 AUTHOR: ELIZABETH SCHULZ EXP COSIGNER: URGENCY: STATUS: COMPLETED VistA Imaging - Scanned Document NONVA DATE OF SERVICE: 06/19/2023 SURGICAL PATHOLOGY REPORT-SKIN OF CHEEK, RIGHT,EXCISION. [facility] SCANNED DOCUMENT SIGNATURE NOT REQUIRED Electronically Filed: 07/10/2023 by: ELIZABETH Newell [facility]
--- OUTSIDE RECORDS SUMMARY | 2023-11-13 12:55 | XMS_ITS | Encounter Summary ---
Author Name [facility] [place] Organization [facility] [place] Address [address] [place] [address] Care Team Providers Care Social Work Nurse Name Role Phone ALONDRA SAHNI Primary [...] SUPPLEMEN FOUZIA MEDEX 2 Jan 14, 2016 [id number] [place] PATIENT MEDICARE (WNR) MEDICARE (M) PART B Oct 14, 2015 PART B [id number] [place] PATIENT MEDICARE (WNR) MEDICARE (M) PART A Oct 13, 2009 PART A [id number] [place] PATIENT Selected Encounter This section includes the information on record at [place] for the Encounter. Date/Time Encounter Type Encounter Description Reason Pro vider Source Mar 29, 2023 12:00 AM Outpatient Encounter EVENT (HISTORICAL) IHE Encounter Template Text not used by [...] 20 appointments. The data comes from all [place] treatment facilities. Appointment Date/Time Appointment Type Appointme nt Facility Name May 30, 2023 09:00 AM AMBULATORY - NONE [place] [facility] May 30, 2023 01:00 PM [facility] [place] [facility] [facility] [place] [facility] September 03, 2023 10:00 AM AMBULATORY - MEDICINE [place] [facility] Immunizations: All administered on the encounter date This section contains immunizations associated to the Encounter. Immunization Series Date Issued Reaction Comments COVID-19 (MODERNA), MRNA, LN P-S, PF, 50 MCG/0.5 ML (AGES 12+ YEARS) 1 Mar 29, 2023 Lot# : [id number] INFLUENZA, UNSPECIFIED FORMULATION Mar 29, 2023 Lot#: [id number]
--- OUTSIDE RECORDS SUMMARY | 2023-11-13 12:55 | XMS_ITS | Continuity of Care Document ---
Author Name [facility] Organization [facility] Care Team Providers Care Rn Home Care Name Role Phone [facility] Unavailable Unavailable Problems Combined list of problems from Department of Defense and Veterans Affairs facilities. It does not include entries that were removed or entered in error. 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 Telederm 05/30/2023. [facility] Low Back Pain (SCT [id number]) Active Condition [facility] Parkinson's disease Active Condition May 30, 2023 Entered By: KAYLENE SAHNI Comment: Follows with [facility] neuro. [facility] Restless Legs Syndrome (SCT [id number]) Active Condition May 30, 2023 Entered By: KAYLENE SAHNI Comment: Follows with [facility] neuro. [facility] Diagnosis: ICD-10-CM Z85.828 Personal history of other malignant neoplasm of skin Active Diagnosis [facility] Diagnosis: ICD-10-CM D48.5 Neoplasm of uncertain behavior of skin Active Diagnosis [facility] Diagnosis: ICD-10-CM Z13.89 Encounter for screening for other disorder Active Diagnosis [facility] Diagnosis: ICD-10-CM D22.9 Melanocytic nevi, unspecified Active Diagnosis [facility] Immunizations Combined list of available immunizations from the Department of Defense and Veterans [facility] facilities. Immunization Series Date Given Administered By Site Reaction Lot Number CVX Code Drug Rope Walker Status Comments Source COVID-19 (MODERNA), MRNA, LNP-S, PF, 50 MCG/0.5 ML (AGES 12+ YEARS) 1 2022 RIGHT DELTO ID 312 complet ed Lot#: [id number] [facility] INFLUENZA, UNSPECIFIED FORMULATION 2022 LEFT DELTO ID 88 complet ed Lot#: [id number] [facility] PNEUMOCOCCAL CONJUGATE PCV20, POLYSACCHARID E [id number] CONJUGATE, ADJUVANT, PF 2021 216 complet ed [facility] INFLUENZA VACCINE, QUADRIVALENT, ADJUVANTED 2020 205 complet ed [facility] COVID-19 (MODERNA), MRNA, LNP-S, PF, 100 MCG OR 50 MCG DOSE 3 2020 207 complet ed MOD; [id number]; 1 [facility] COVID-19 (MODERNA), MRNA, LNP-S, PF, 100 MCG/0.5 ML DOSE 2 2020 207 complet ed [facility] COVID-19 (MODERNA), MRNA, LNP-S, PF, 100 MCG/0.5 ML DOSE 1 2020 207 complet ed [facility] INFLUENZA, UNSPECIFIED FORMULATION 2019 88 complet ed [facility] ZOSTER RECOMBINANT 2 2018 187 complet ed yes [facility] 1 2018 187 complet ed yes [facility] TD[facility] 2016 115 complet ed [facility] PNEUMOCOCCAL POLYSACCHARID E PPV23 2013 33 complet ed [facility] Results Combined list of recent chemistry, hematology and other laboratory results from Department of Defense and Veterans Affairs, ranging from 15 months to all on record, depending upon the facility. Order Name Results Value Reference Range Date Interpretation Specimen Comments Source P4 GLU,BUN,C REAT,LYTE S,CA UREA NITROGEN [MASS/VOLUM E] IN SERUM OR PLASMA 15 mg/dL 7 - 25 02/16 Specimen Type: PLASMA Comment: Tests performed on nothingGrinder (405) SN:[id number] Ordering Provider: TEODORO SAINZ Report Released Date/Time: Feb 16, 2022 10:48 AM Reporting Lab: [facility] [address] [facility] [address] Performing Lab: [facility] [address] [facility] [address] [facility] P4 GLU,BUN,C REAT,LYTE S,CA SODIUM [MOLES/VOLU ME] IN SERUM OR PLASMA 141 mmol/L 135 - 145 02/16 Specimen Type: PLASMA Comment: Tests performed on Jacques Pins (405) SN:[id number] Ordering Provider: TEODORO SAINZ Report Released Date/Time: Feb 16, 2022 10:48 AM Reporting Lab: [facility] [address] [facility] [address] Performing Lab: [facility] [address] [facility] [address] [facility] P4 GLU,BUN,C REAT,LYTE S,CA POTASSIUM [MOLES/VOLU ME] IN SERUM OR PLASMA 4.3 mmol/L 3.5 - 5.0 02/16 Specimen Type: PLASMA Comment: Tests performed on Jacques Pins (405) SN:[id number] Ordering Provider: TEODORO SAINZ Report Released Date/Time: Feb 16, 2022 10:48 AM Reporting Lab: [facility] [address] [facility] [address] Performing Lab: [facility] [address] [facility] [address] [facility] P4 GLU,BUN,C REAT,LYTE S,CA CHLORIDE [MOLES/VOLU ME] IN SERUM OR PLASMA 105 mmol/L 100 - 110 02/16 Specimen Type: PLASMA Comment: Tests performed on Jacques Pins (405) SN:[id number] Ordering Provider: TEODORO SAINZ Report Released Date/Time: Feb 16, 2022 10:48 AM Reporting Lab: [facility] [address] [facility] [address] Performing Lab: [facility] [address] [facility] [address] [facility] P4 GLU,BUN,C REAT,LYTE S,CA CARBON DIOXIDE, TOTAL [MOLES/VOLU ME] IN SERUM OR PLASMA 27 mmol/L 20 - 30 02/16 Specimen Type: PLASMA Comment: Tests performed on Jacques Pins (405) SN:[id number] Ordering Provider: TEODORO SAINZ Report Released Date/Time: Feb 16, 2022 10:48 AM Reporting Lab: [facility] [address] [facility] [address] Performing Lab: [facility] [address] [facility] [address] [facility] P4 GLU,BUN,C REAT,LYTE S,CA ANION GAP IN SERUM OR PLASMA 9 mmol/L 4 - 16 02/16 Specimen Type: PLASMA Comment: Tests performed on Jacques Pins (405) SN:[id number] Ordering Provider: TEODORO SAINZ Report Released Date/Time: Feb 16, 2022 10:48 AM Reporting Lab: [facility] [address] [facility] [address] [facility]: [facility] [address] [facility] [address] [facility] P4 GLU,BUN,C REAT,LYTE S,CA GLUCOSE [MASS/VOLUM E] IN SERUM OR PLASMA 95 mg/dL 65 - 100 02/16 Specimen Type: PLASMA Comment: Tests performed on nothingGrinder (405) SN:[id number] Ordering Provider: TEODORO SAINZ Report Released Date/Time: Feb 16, 2022 10:48 AM Reporting Lab: [facility] [address] [facility] [address] Per[facility] Lab: [facility] [address] [facility] [address] [facility] P4 GLU,BUN,C REAT,LYTE S,CA CREATININE [MASS/VOLUM E] IN SERUM OR PLASMA 1.14 mg/dL 0.5 - 1.5 02/16 Specimen Type: PLASMA Comment: Tests performed on Jacques Pins (405) SN:[id number] Ordering Provider: TEODORO SAINZ Report Released Date/Time: Feb 16, 2022 10:48 AM Reporting Lab: [facility] [address] [facility] [address] Performing Lab: [facility] [address] [facility] [address] [facility] P4 GLU,BUN,C REAT,LYTE S,CA CALCIUM [MASS/VOLUM E] IN SERUM OR PLASMA 9.6 mg/dL 8.5 - 10.5 02/16 Specimen Type: PLASMA Comment: Tests performed on Jacques Pins (405) SN:[id number] Ordering Provider: TEODORO SAINZ Report Released Date/Time: Feb 16, 2022 10:48 AM Reporting Lab: [facility] [address] [facility] [address] Performing Lab: [facility] [address] [facility] [address] [facility] P4 GLU,BUN,C REAT,LYTE S,CA eGFR(CKD-EP I 2020) 66 mL/min 60 02/16 Specimen Type: PLASMA Comment: Tests performed on Jacques Pins (405) SN:[id number] Ordering Provider: TEODORO SAINZ Report Released Date/Time: Feb 16, 2022 10:48 AM Reporting Lab: [facility] [address] [facility] [address] Performing Lab: [facility] [address] [facility] [facility] [address] [facility] LIVER PROFILE PROTEIN [MASS/VOLUM E] IN SERUM OR PLASMA 6.9 g/dL 6.0 - 8.5 02/16 Specimen Type: PLASMA Comment: Tests performed on nothingGrinder (405) SN:[id number] Ordering Provider: TEODORO SAINZ Report Released Date/Time: Feb 16, 2022 10:48 AM Reporting Lab: [facility] [address] [facility] [address] Performing Lab[facility] [address] [facility] [address] [facility] LIVER PROFILE ALBUMIN [MASS/VOLUM E] IN SERUM OR PLASMA 3.8 g/dL 3.2 - 5.0 02/16 Specimen Type: PLASMA Comment: Tests performed on nothingGrinder (405) SN:[id number] Ordering Provider: TEODORO SAINZ Report Released Date/Time: Feb 16, 2022 10:48 AM Reporting Lab: [facility] [address] [facility] [address] Per[facility]: [facility] [address] [facility] [address] [facility] LIVER PROFILE BILIRUBIN.T OTAL [MASS/VOLUM E] IN SERUM OR PLASMA 0.8 mg/dL 0.2 - 1.2 02/16 Specimen Type: PLASMA Comment: Tests performed on Jacques Poured Concrete Wall Technician (405) SN:[id number] Ordering Provider: TEODORO SAINZ Report Released Date/Time: Feb 16, 2022 10:48 AM Reporting Lab: [facility] [address] [place] [place] [place] [address] Performing Lab: [facility] [address] [place] [place] [facility] [place] [address] [facility] LIVER PROFILE ALKALINE PHOSPHATASE [ENZYMATIC ACTIVITY/VO LUME] IN SERUM OR PLASMA 66 U/L 40 - 150 02/16 Specimen Type: PLASMA Comment: Tests performed on Jacques Pins (405) SN:[id number] Ordering Provider: TEODORO SAINZ Report Released Date/Time: Feb 16, 2022 10:48 AM Reporting Lab: [facility] [address] [place] [place] [facility] [place] [address] Performing Lab: [facility] [address] [place] [place] [facility] [place] [address] [facility] LIVER PROFILE ALANINE AMINOTRANSF ERASE [ENZYMATIC ACTIVITY/VO LUME] IN SERUM OR PLASMA 23 U/L 7 - 52 02/16 Specimen Type: PLASMA Comment: Tests performed on Jacques Pins (405) SN:[id number] Ordering Provider: TEODORO SAINZ Report Released Date/Time: Feb 16, 2022 10:48 AM Reporting Lab: [facility] [address] [place] [place] [facility] [place] [address] Performing Lab: [facility] [address] [place] [facility] [place] [address] [facility] LIVER PROFILE ASPARTATE AMINOTRANSF ERASE [ENZYMATIC ACTIVITY/VO LUME] IN SERUM OR PLASMA 14 U/L 5 - 34 02/16 Specimen Type: PLASMA Comment: Tests performed on Jacques Pins (405) SN:[id number] Ordering Provider: TEODORO SAINZ Report Released Date/Time: Feb 16, 2022 10:48 AM Reporting Lab: [facility] [address] [place] [place] [facility] [place] [address] Performing Lab: [facility] [address] [place] [facility] [place] [address] [facility] LIVER PROFILE FIB-4 SCORE 0.91 {index } <2.67 - 2.67 02/16 Specimen Type: PLASMA Comment: Tests performed on Jacques Poured Concrete Wall Technician (405) SN:[id number] Ordering Provider: TEODORO SAINZ Report Released Date/Time: Feb 16, 2022 10:48 AM Reporting Lab: [facility] [address] [place] [place] [facility] [place] [address] Performing Lab: [facility] [address] [facility] [address] [facility] LIPOPROTE IN CHOLESTER OL FRACT. PANEL CHOLESTEROL [MASS/VOLUM E] IN SERUM OR PLASMA 215 mg/dL 0 - 199 02/16 H Specimen Type: PLASMA Comment: Tests performed on Jacques Poured Concrete Wall Technician (405) SN:[id number] Ordering Provider: TEODORO SAINZ Report Released Date/Time: Feb 16, 2022 10:48 AM Reporting Lab: [facility] [address] [facility] [address] Performing Lab: [facility] [address] [facility] [address] [facility] LIPOPROTE IN CHOLESTER OL FRACT. PANEL TRIGLYCERID E [MASS/VOLUM E] IN SERUM OR PLASMA 65 mg/dL 0 - 149 02/16 Specimen Type: PLASMA Comment: Tests performed on Jacques Pins (405) SN:[id number] Ordering Provider: TEODORO SAINZ Report Released Date/Time: Feb 16, 2022 10:48 AM Reporting Lab: [facility] [address] [facility] [address] Performing Lab: [facility] [address] [facility] [address] [facility] LIPOPROTE IN CHOLESTER OL FRACT. PANEL CHOLESTEROL IN HDL [MASS/VOLUM E] IN SERUM OR PLASMA 64 mg/dL 40 02/16 Specimen Type: PLASMA Comment: Tests performed on Jacques Pins (405) SN:[id number] Ordering Provider: TEODORO SAINZ Report Released Date/Time: Feb 16, 2022 10:48 AM Reporting Lab: [facility] [address] [facility] [address] Performing Lab: [facility] [address] [facility] [address] [facility] LIPOPROTE IN CHOLESTER OL FRACT. PANEL CHOLESTEROL IN LDL [MASS/VOLUM E] IN SERUM OR PLASMA BY CALCULATION 138 mg/dL 0 - 129 02/16 H Specimen Type: PLASMA Comment: Tests performed on Jacques Poured Concrete Wall Technician (405) SN:[id number] Ordering Provider: TEODORO SAINZ Report Released Date/Time: Feb 16, 2022 10:48 AM Reporting Lab: [facility] [address] [facility] [address] Performing Lab: [facility] [address] [facility] [address] [place] [address] GLYCOHEMO GLOBIN (A1C ONLY) HEMOGLOBIN A1C/HEMOGLO BIN.TOTAL IN BLOOD BY HPLC 5.1 4.0 - 5.6 02/16 Specimen Type: BLOOD Comment: Values obtained from A1C measurements can vary. For typical A1C assays, a reported value of 7.0 could actually be between 6.72 and 7.28 if measured by a reference method. A reported value of 9.0 could actually be between 8.73 and 9.27. Reference [email or web address] Ordering Provider: TEODORO SAINZ Report Released Date/Time: Feb 16, 2022 10:48 AM Reporting Lab: [facility] [address] [phone] Performing Lab: [facility] [address] CBC PROFILE LEUKOCYTES [#/VOLUME] IN BLOOD BY AUTOMATED COUNT 7.8 10*3/u L 4.5 - 11.0 02/16 Specimen Type: BLOOD No comment entered. Ordering Provider: TEODORO SAINZ Report Released Date/Time: Feb 16, 2022 10:48 AM Reporting Lab: [facility] [address] [facility] [address] Performing Lab: [facility] [address] [place] [address] [place] [address] CBC PROFILE ERYTHROCYTE S [#/VOLUME] IN BLOOD BY AUTOMATED COUNT 4.92 10*6/u L 4.23 - 5.66 02/16 Specimen Type: BLOOD No comment entered. Ordering Provider: TEODORO SAINZ Report Released Date/Time: Feb 16, 2022 10:48 AM Reporting Lab: [facility] [address] [phone] Performing Lab: [facility] [address] CBC PROFILE HEMOGLOBIN [MASS/VOLUM E] IN BLOOD 14.8 g/dL 12.8 - 17 02/16 Specimen Type: BLOOD No comment entered. Ordering Provider: TEODORO SAINZ Report Released Date/Time: Feb 16, 2022 10:48 AM Reporting Lab: [facility] [address] [facility] [address] Performing Lab: [facility] [address] [facility] [address] [facility] CBC PROFILE HEMATOCRIT [VOLUME FRACTION] OF BLOOD BY AUTOMATED COUNT 44.8 39.2 - 50.4 02/16 Specimen Type: BLOOD No comment entered. Ordering Provider: TEODORO SAINZ Report Released Date/Time: Feb 16, 2022 10:48 AM Reporting Lab: [facility] [address] [facility] [address] Performing Lab: [facility] [address] [facility] [address] [facility] CBC PROFILE MCV [ENTITIC VOLUME] BY AUTOMATED COUNT 91.1 fL 82 - 99 02/16 Specimen Type: BLOOD No comment entered. Ordering Provider: TEODORO SAINZ Report Released Date/Time: Feb 16, 2022 10:48 AM Reporting Lab: [facility] [address] [facility] [address] Performing Lab: [facility] [address] [facility] [address] [facility] CBC PROFILE MCH [ENTITIC MASS] BY AUTOMATED COUNT 30.1 pg 26.2 - 32.6 02/16 Specimen Type: BLOOD No comment entered. Ordering Provider: TEODORO SAINZ Report Released Date/Time: Feb 16, 2022 10:48 AM Reporting Lab: [facility] [address] [facility] [address] Performing Lab: [facility] [address] [facility] [address] [facility] CBC PROFILE MCHC [MASS/VOLUM E] BY AUTOMATED COUNT 33.0 g/dL 30.8 - 35.1 02/16 Specimen Type: BLOOD No comment entered. Ordering Provider: TEODORO SAINZ Report Released Date/Time: Feb 16, 2022 10:48 AM Reporting Lab: [facility] [address] [facility] [address] Performing Lab: [facility] [address] [facility] [address] [facility] CBC PROFILE PLATELETS [#/VOLUME] IN BLOOD BY AUTOMATED COUNT 247 10*3/u L 140 - 360 02/16 Specimen Type: BLOOD No comment entered. Ordering Provider: TEODORO SAINZ Report Released Date/Time: Feb 16, 2022 10:48 AM Reporting Lab: [facility] [address] [facility] [address] Per[facility]: [facility] [address] [facility] [address] [facility] CBC PROFILE PLATELET MEAN VOLUME [ENTITIC VOLUME] IN BLOOD BY AUTOMATED COUNT 9.0 fL 9.2 - 12.4 02/16 L Specimen Type: BLOOD No comment entered. Ordering Provider: TEODORO SAINZ Report Released Date/Time: Feb 16, 2022 10:48 AM Reporting Lab: [facility] [address] [facility] [address] Performing Lab: [facility] [address] [facility] [address] [facility] CBC PROFILE ERYTHROCYTE DISTRIBUTIO N WIDTH [RATIO] BY AUTOMATED COUNT 12.3 12.0 - 16.0 02/16 Specimen Type: BLOOD No comment entered. Ordering Provider: TEODORO SAINZ Report Released Date/Time: Feb 16, 2022 10:48 AM Reporting Lab: [facility] [address] [facility] [address] Per[facility] Lab: [facility] [address] [facility] [address] [facility] CBC PROFILE LYMPHOCYTES /100 LEUKOCYTES IN BLOOD BY AUTOMATED COUNT 17.8 14.0 - 42.3 02/16 Specimen Type: BLOOD No comment entered. Ordering Provider: TEODORO SAINZ Report Released Date/Time: Feb 16, 2022 10:48 AM Reporting Lab: [facility] [address] [facility] [address] Per[facility]: [facility] [address] [facility] [address] [facility] CBC PROFILE MONOCYTES/1 00 LEUKOCYTES IN BLOOD BY AUTOMATED COUNT 6.7 5.1 - 13.7 02/16 Specimen Type: BLOOD No comment entered. Ordering Provider: TEODORO SAINZ Report Released Date/Time: Feb 16, 2022 10:48 AM Reporting Lab: [facility] [address] [facility] [address] Performing Lab: [facility] [address] [facility] [address] [facility] CBC PROFILE GRANULOCYTE S/100 LEUKOCYTES IN BLOOD BY AUTOMATED COUNT 74.0 43.7 - 75.8 02/16 Specimen Type: BLOOD No comment entered. Ordering Provider: TEODORO SAINZ Report Released Date/Time: Feb 16, 2022 10:48 AM Reporting Lab: [facility] [address] [facility] [address] Performing Lab: [facility] [address] [facility] [address] [facility] CBC PROFILE EOSINOPHILS /100 LEUKOCYTES IN BLOOD BY AUTOMATED COUNT 0.8 0.4 - 6.8 02/16 Specimen Type: BLOOD No comment entered. Ordering Provider: TEODORO SAINZ Report Released Date/Time: Feb 16, 2022 10:48 AM Reporting Lab: [facility] [address] [facility] [address] Performing Lab: [facility] [address] [facility] [address] [facility] CBC PROFILE BASOPHILS/1 00 LEUKOCYTES IN BLOOD BY AUTOMATED COUNT 0.4 0.1 - 2.0 02/16 Specimen Type: BLOOD No comment entered. Ordering Provider: TEODORO SAINZ Report Released Date/Time: Feb 16, 2022 10:48 AM Reporting Lab: [facility] [address] [facility] [address] Performing Lab: [facility] [address] [facility] [address] [facility] CBC PROFILE IMMATURE GRANULOCYTE S/100 LEUKOCYTES IN BLOOD BY AUTOMATED COUNT 0.3 0.0 - 0.7 02/16 Specimen Type: BLOOD No comment entered. Ordering Provider: TEODORO SAINZ Report Released Date/Time: Feb 16, 2022 10:48 AM Reporting Lab: [facility] [address] [facility] [address] Performing Lab: [facility] [address] [facility] [address] CBC PROFILE NUCLEATED ERYTHROCYTE S [#/VOLUME] IN BLOOD BY AUTOMATED COUNT 0.0 /100{W BCs} 0.0 - 0.0 02/16 Specimen Type: BLOOD No comment entered. Ordering Provider: TEODORO SAINZ Report Released Date/Time: Feb 16, 2022 10:48 AM Reporting Lab: [facility] [address] [facility] [address] Performing Lab: [facility] [address] CBC PROFILE IMMATURE GRANULOCYTE S [#/VOLUME] IN BLOOD 0.0 10*3/u L 0 - 0.06 02/16 Specimen Type: BLOOD No comment entered. Ordering Provider: TEODORO SAINZ Report Released Date/Time: Feb 16, 2022 10:48 AM Reporting Lab: [facility] [address] [place] [phone] Performing Lab: [facility] [address] CBC PROFILE BASOPHILS [#/VOLUME] IN BLOOD BY AUTOMATED COUNT 0.0 10*3/u L 0.01 - 0.13 02/16 L Specimen Type: BLOOD No comment entered. Ordering Provider: TEODORO SAINZ Report Released Date/Time: Feb 16, 2022 10:48 AM Reporting Lab: [facility] [address] [phone] Performing Lab: [facility] [address] CBC PROFILE EOSINOPHILS [#/VOLUME] IN BLOOD BY AUTOMATED COUNT 0.1 10*3/u L 0.03 - 0.44 02/16 Specimen Type: BLOOD No comment entered. Ordering Provider: TEODORO SAINZ Report Released Date/Time: Feb 16, 2022 10:48 AM Reporting Lab: [facility] [address] [place] [phone] Performing Lab: [facility] [address] CBC PROFILE LYMPHOCYTES [#/VOLUME] IN BLOOD BY AUTOMATED COUNT 1.4 10*3/u L 1.0 - 3.2 02/16 Specimen Type: BLOOD No comment entered. Ordering Provider: TEODORO SAINZ Report Released Date/Time: Feb 16, 2022 10:48 AM Reporting Lab: [facility] [address] [facility] [address] Performing Lab: [facility] [address] [facility] [address] [facility] CBC PROFILE MONOCYTES [#/VOLUME] IN BLOOD BY AUTOMATED COUNT 0.5 10*3/u L 0.3 - 1.1 02/16 Specimen Type: BLOOD No comment entered. Ordering Provider: TEODORO SAINZ Report Released Date/Time: Feb 16, 2022 10:48 AM Reporting Lab: [facility] [address] [facility] [address] Performing Lab: [facility] [address] [facility] [address] [facility] CBC PROFILE NEUTROPHILS [#/VOLUME] IN BLOOD BY AUTOMATED COUNT 5.7 10*3/u L 2.2 - 7.6 02/16 Specimen Type: BLOOD No comment entered. Ordering Provider: TEODORO SAINZ Report Released Date/Time: Feb 16, 2022 10:48 AM Reporting Lab: [facility] [address] [facility] [address] Performing Lab: [facility] [address] [facility] [address] [facility] CBC PROFILE NUCLEATED ERYTHROCYTE S [#/VOLUME] IN BLOOD BY AUTOMATED COUNT 0.00 10*3/u L 0 - 0 02/16 Specimen Type: BLOOD No comment entered. Ordering Provider: TEODORO SAINZ Report Released Date/Time: Feb 16, 2022 10:48 AM Reporting Lab: [facility] [address] [address] Performing Lab: [facility] [address] [address] [facility] Vital Signs Combined list of inpatient and outpatient Vital Signs from Department of Defense and Veterans Affairs, ranging from 12 months to all on record, depending upon the facility. Vital Sign Value Date Comments Source Encounters Combined list of: 1) Encounters from Department of Veterans Affairs facilities going back up to thelast 18 months. 2) Encounters from the Department of Defense facilities going back up to 280 months. Location Location Details Encounter Type Encounter Number Reason For Visit Attending Provider ADM Date DC Date Status Disposition Source [place] [facility] Outpatient Encounter [id number] 06/26 [place] [facility] [facility] [place] [place] Outpatient [facility]counter [id number] 06/27 [place] [facility] [place] [facility] [facility] Encounter [id number] 07/27 [place] [facility] [place] Outpatient Encounter [id number] 09/19 [facility] [facility] [place] [facility] Outpatient Encounter [id number] 11/16 [facility] [facility] [place] [facility] Outpatient Encounter [id number] 03/05 [place] [facility] [place] [facility] Outpatient Encounter [id number] 03/29 [facility] [facility] [place] [facility] Outpatient Encounter [id number] 05/02 [facility] [place] [place] [facility] Outpatient Encounter [id number] 05/06 [place] O/P EST MOD 30 MIN [id number] Diagnos is: ICD-10- CM D22.9 Melanoc ytic nevi, unspeci fied
CARLA SAHNI 05/30 [facility] [place] UNLISTED SPEC DERM SVC/PX [id number] Diagnos is: ICD-10- CM Z13.89 Encount er for screeni ng for other disorde r
Regan WAGNER 05/30 [facility] Outpatient Encounter [id number] Diagnos is: ICD-10- CM D48.5 Neoplas m of uncerta in behavio r of skin
JULIAN FRANCO 06/05 [facility] [place] [facility] Outpatient Encounter [id number] 06/06 [place] [facility] [place] [facility] Outpatient Encounter [id number] 06/12 [place] [facility] [place] Outpatient Encounter [id number] 06/18 [place] [facility] [place] [facility] Outpatient Encounter [id number] 06/19 [place] [facility] [place] [facility] Outpatient Encounter [id number] 06/27 [place] [facility] [place] [facility] Outpatient Encounter [id number] 08/28 [place] [facility] [place] [facility] OFFICE O/P NEW LOW 30 MIN [id number] Diagnos is: ICD-10- CM Z85.828 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
DESLENORAMIRANDA GINIA 09/02 [place] [facility] Social History Combined list of available smoking, tobacco, and other social history from Department of Defense and Veterans Affairs facilities. Social History Type Response Date Comment [facility] e Tobacco smoking status [facility] VA-TOBACCO FORMER USER 05/30/2023 [facility] History of tobacco use TX-TOBACCO QUIT 1 5 YRS OR MORE 05/30/2023 [facility] History of tobacco use VA-TOBACCO FORMER USER 02/20/2022 [facility] History of tobacco use VA-TOBACCO FORMER USER 02/16/2021 [facility] History of tobacco use VA-TOBACCO FORMER USER 01/12/2020 [facility]
--- OUTSIDE RECORDS SUMMARY | 2023-11-13 12:55 | XMS_ITS | Encounter Summary ---
Author Name [facility] [place] Organization [place] Address [address] [place] [id number] Care Team Providers Care Charter Representative Name Role Phone LAN AL Primary Care Provider Unavailabl e Insurance Providers: [...] [place] MEDICARE SUPPLEMEN [facility] MEDEX 2 Jan 14, 2016 [id number] VALENCIA,WILL BRITNEY PATIENT MEDICARE (WNR) MEDICARE (M) PART B Oct 14, 2015 PART B [id number] VALENCIA,WILL BRITNEY PATIENT MEDICARE (WNR) MEDICARE (M) PART A Oct 13, 2009 PART A [id number] ACWORTH,WILL BRITNEY PATIENT Selected Encounter This section includes the information on record at [place] for the Encounter. Date/Time Encounter Type Encounter Description Reason Provider Source May 30, 2023 09:00 AM OFFICE O/P EST MOD 30 MIN PRIMARY CARE/MEDICINE ICD-10-CM D22.9 Melanocytic nevi, unspecified LAN AL Hammad Encounter Template Text not used by [place] Assessments - Encounter Diagnoses This section includes the primary and secondary diagnoses documented for the Encounter. Date/Time Primary/Secondary Diagnosis Diagnosis Name Provider Source May 30, 2023 10:01 AM PRIMARY Melanocytic nevi, unspecified LAN AL [facility] May 30, 2023 10:01 AM SECONDARY Parkinson's dis w/o dyskinesia, w/o mention of fluctuations LAN AL [facility] May 30, 2023 10:01 AM SECONDARY Restless legs syndrome LAN AL [facility] Plan of Treatment: Future Appointments (+ 6 months) and Future Tests (+/- 45 days) The Plan of Treatment section includes future care activities for the patient from all [place] [facility]. This section includes future appointments and future orders which are active, pending or scheduled. Future Appointments This section includes appointments that were scheduled to occur 6 months from the date of the Encounter, up to a maximum of 20 appointments. The data comes from all [place] treatment facilities. Appointment Date/Time Appointment Type Appointme nt Facility Name September 03, 2023 10:00 AM AMBULATORY - MEDICINE [facility] Social History: Smoking Status (Most current) and Tobacco Use (All prior to encounter date) This section includes the most current, and the historical, smoking and tobacco- related health factors from the [place] facility where the Encounter took place. Current Smoking Status This section includes the most current smoking, or tobacco-related health factor, from the [place] facility where the Encounter took place. Date/Time Current Smoking Status Comment [place] [facility] May 30, 2023 09:00 AM VA-TOBACCO FORMER USER [facility] Tobacco Use History This section includes a history of the smoking, or tobacco-related health factors, that were collected on or before the date of the Encounter. The data comes from the [place] facility where the Encounter took place. Date/Time Smoking Status/Tobacco Use Comment F acility May 30, 2023 09:00 AM VA-TOBACCO QUIT 15 YRS OR MORE [facility] Feb 20, 2022 11:00 AM VA-TOBACCO FORMER USER [facility] Feb 20, 2022 11:00 AM VA-TOBACCO QUIT 15 YRS OR MORE [facility] Feb 16, 2021 02:00 PM VA-TOBACCO FORMER USER [facility] Feb 16, 2021 02:00 PM VA-TOBACCO QUIT 15 YRS OR MORE [facility] Jan 12, 2020 10:00 AM VA-TOBACCO FORMER USER [facility] Jan 12, 2020 10:00 AM VA-TOBACCO QUIT 15 YRS OR MORE [facility] Encounter Notes: All associated encounter notes This section contains the clinical notes associated to the Encounter. Date/Time Encounter Note(s) Provider Source May 30, 2023 10:02 AM PRIMARY CARE ADMIN ISTRATIVE NOTE: LOCAL TITLE: Administrative Note/Primary Care STANDARD TITLE: PRIMARY CARE ADMINISTRATIVE NOTE DATE OF NOTE: MAY 30, 2023@10:02 ENTRY DATE: MAY 30, 2023@10:02:05 AUTHOR: LAN AL EXP COSIGNER: URGENCY: STATUS: COMPLETED Administrative Note/Primary Care Has ADDENDA Please fax primary care clinic note to [facility]. Dr. Bernardo Nichols is PCP, important that Dr. Nichols know about possible BCCA versus SCCA right jawline. /es/ Lan Al PA-C Signed: 05/30/2023 10:03 Receipt Acknowledged By: 05/30/2023 11:38 /es/ WALDEMAR GIL AMSDeidra 05/30/2023 ADDENDUM STATUS: COMPLETED printed both notes and faxed attn Dr Bledsoe fx #[phone] /es/ WALDEMAR GIL AMSA Signed: 05/30/2023 11:38 LAN AL [facility] May 30, 2023 09:08 AM PRIMARY CARE NOTE: LOCAL TITLE: Primary Care Clinic Note STANDARD TITLE: PRIMARY CARE NOTE DATE OF NOTE: MAY 30, 2023@09:08 ENTRY DATE: MAY 30, 2023@09:08:12 AUTHOR: LAN AL EXP COSIGNER: URGENCY: STATUS: COMPLETED This is a nonacute regular f primary care visit. 77-year-old male seen at [facility] for transfer PCP and follow-up medical problems. I'd like you to take a look at this sore on my face A/P: # Parkinson's disease. Stable. Follows with [facility] neuro. #-RLS. Stable. Follows with [facility] neuro. # atyp nevus right cheek at jaw line. 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 Sore that won't heal. Bleeds with shaving. Increase in size, elevation. Onset mid-Mar 2023. 7 mm x 8 mm. Erosive surface. Refer telederm, photos today. Anticipate will need f2f consult [facility] derm. Pt ed handout: [email or web address] #[email or web address]- PCP outside [facility]. [facility]. Bernardo Nichols. [facility] Vet states all vaccines up to date, Covid and flu vacc fall 2022 at [facility]. BP at goal, RTC 12 mo per recall S: Compliant with meds, no side effects. Active problems - Computerized Problem List is the source for the followin. Low Back Pain ([facility] [id number]) ROS: General no fever Eye no discharge, no vision loss ENT no congestion, no ear pain, no st Cardio no cp Pulm no sob GI no nvd no pain no dysuria MS + chronic back pain Skin new lesion right jawline Neuro Parkinson's Psych mood good Endo no polyuria, no polydipsia Heme no bruising or bleeding O: BP 136/76 Appearance: WNWD. Flat/Parkinsonian affect Eyes: PERRL, no conjunctival injection. ENMT: Moist MM. Neck: No LAD, No thyromegaly. CVS: RRR, No murmurs. RESP: Nl respirations. No wheezes or crackles. GI: NTND, BS active. MSK: No deformities. FAROM. No edema. Skin: atyp nevus right cheek at jaw line. 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 Sore that won't heal. 7 mm x 8 mm. Erosive surface. Neuro: Resting tremor left hand and forearm. Grossly nonfocal. Psych: Appropriate mood and affect. 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 Soc Hx: skied for 8 yrs. 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 [employer] [place] for 10 yrs, then [employer] x 25 yrs. Retired 2018. 1 son, 1 dtr - short term memory loss Reviewed last note previous PCP 02/20/2022. Assessment/Plan: Low back pain. is followed outside the [facility] for [facility] care. Medications are obtained outside the [facility]. FOLLOW UP:1 year Toxic Exposure Screening: The /caregiver was asked if they believe the experienced any toxic exposure(s), such as Airborne Hazards and Open Burn Pit, [place] War related exposures, Agent [place], Radiation, contaminated water at [place] or other such exposures, while serving in the Armed Forces. has no concerns about toxic exposure(s) while serving in the Armed Forces. The [place]/caregiver was informed that we will continue to ask this screening question every 5 years. They can contact their provider/healthcare team if they have concerns about exposures and would like to be screened sooner. Printed information was offered and provided if desired. Medication Reconciliation: Perform Medication Reconciliation JLV Link Data on this list may not be complete. Please check JLV. Allergies/ADRs (Tool #5) FACILITY ALLERGY/ADR -------- No Remote Allergy/ADR Data available for this patient SAY SHELLEY Henrry [facility] No Known Allergies Med Recon [facility] (Tool #1) INCLUDED IN THIS LIST: Alphabetical list of active outpatient prescriptions dispensed from this VA (local) and dispensed from another VA or DoD facility (remote) as well as inpatient orders (local pending and active), local clinic medications, locally documented non-VA medications, and local prescriptions that have or been discontinued in the past 90 days. Non-VA Meds Last Documented On: Data not found NOTE The display of VA prescriptions dispensed from another VA or DoD facility (remote) is limited to active outpatient prescription entries matched to National Drug File at the originating site and may not include some items such as investigational drugs, compounds, etc. NOT INCLUDED IN THIS LIST: Medications self-entered by the patient into personal health records (i.e. [employer]) are NOT included in this list. Non-VA medications documented outside this VA, remote inpatient orders (regardless of status) and remote clinic medications are NOT included in this list. The patient and provider must always discuss medications the patient is taking, regardless of where the medication was dispensed or obtained. SUPPLIES Comments: The patient's Essential Medication List for Review was used for reconciliation to address additions, deletions, and changes as reported by the patient/caregiver. The patient/caregiver indicates that medications are being taken as documented as described above. The patient/caregiver maintains their own up to date medication list. Was medication education provided for new medications or changes to medications? (including medication name, dose, route, reason for use, and potential side effects). No new medications or medication changes during this encounter. /rachel/ Lan Al PA-C Signed: 05/30/2023 10:01 LAN AL [facility] May 30, 2023 09:04 AM PRIMARY CARE JAMES Soto EVALUATION NOTE: LOCAL TITLE: Preventive Health Annual Review STANDARD TITLE: PRIMARY CARE ANNUAL EVALUATION NOTE DATE OF NOTE: MAY 30, 2023@09:04 ENTRY DATE: MAY 30, 2023@09:04:21 AUTHOR: ADY CALIXTOIGNER: URGENCY: STATUS: COMPLETED Pt here for f2f with PCP Pt has concerns about headaches. States he has a headache nearly everyday. Advance Directive Screen MH AD: Patient has an up-to-date Advance Directive at an outside, non-va facility and was asked to forward a copy to his/her clinician. Tobacco Use Screening: The patient is a former tobacco user. The patient quit fifteen or more years ago. Falls & Incontinence Screen: Falls Screen: 4. No falls within the past year. Incontinence Screen: No incontinence. Frail/Elderly ADL & IADL Screens: ADL Screen - Yañ[place] Index of [place] in Activities of Daily Living Record INDEX of ADL. Score = 18 1. Bathing: either sponge bath, tub bath or shower. Receives no assistance (gets in and out of tub by self, if tub is usual means of bathing). 2. Dressing: gets clothes from closets and drawers, including under-clothes, outer garments and using fasteners (including braces if worn). Gets clothes and dresses self without assistance. 3. Toileting: going to the toilet room for bowel and urine elimination; cleaning self after elimination and arranging clothes. (May use cane, walker, or wheelchair, and manage bedpan or commode, emptying same next morning). No assistance needed. 4. Transfer: Moves in and out of bed, or chair, without assistance (may use support object like cane or walker). 5. Continence: Controls urination and bowel movement completely by self. 6. Feeding: Feeds self without assistance. IADL Screen - [place] Instrumental Activities of Daily Living Scale Ability to use telephone: (1 point) Operates Telephone on own initiative; looks up and dials numbers. Shopping: (1 point) Takes care of all shopping needs independently. Food preparation: (1 point) Plans, prepares, and serves adequate meals independently. Housekeeping: (1 point) Maintains house alone with occasional assistance (heavy work). Laundry: (1 point) Does personal laundry completely. Mode of transportation: (1 point) Travels independently on public transportation or drives own car. Responsibility for own medications: (1 point) Is responsible for taking medications in correct dosages at correct times. Ability to handle finances: (1 point) Manages financial matters independently (budgets, writes checks, pays rent and bills, goes to bank); collects and keeps track of income. Total score: 8 points 8 = High function, independent 0 = Low function, dependent HIV Screening: Patient has been offered HIV testing and has declined. I have explained that HIV testing is recommended for all adults, even if all risk factors are absent. The patient was educated on the risk of delayed screening. Hepatitis C Testing: Patient declines HCV lab test. Homelessness/Food Insecurity Screen: In the past 2 months, have you been living in stable housing that you own, rent, or stay in as part of a household? Yes - Living in stable housing. Are you worried or concerned that in the next 2 months you may NOT have stable housing that you own, rent, or stay in as part of a household? No - Not worried about housing near future The reports the following: Within the past 12 months, you worried whether your food would run out before you got money to buy more. Never true Within the past 12 months, the food you bought just didn't last and you didn't have money to get more. Never true Alcohol Use Screen (AUDIT-C): Alcohol Screen: SCREEN FOR ALCOHOL (AUDIT-C) An alcohol screening test (AUDIT-C) was negative (score=0). 1. How often did you have a drink containing alcohol in the past year? Consider a drink to be a 12 ounce can or bottle of regular beer, 8 ounces of malt liquor, a 5 ounce glass of table wine, or a 1.5 ounce shot of liquor (like scotch, gin, or vodka). Never 2. How many drinks containing alcohol did you have on a typical day when you were drinking in the past year? Response not required due to responses to other questions. 3. How often did you have six or more drinks on one occasion in the past year? Response not required due to responses to other questions. Sexual Orientation: The patient thinks of their sexual orientation as: Straight or Heterosexual Depression Screening: Perform PHQ-2 A PHQ-2 screen was performed. The score was 0 which is a negative screen for depression. Over the past two weeks, how often have you been bothered by the following problems? 1. Little interest or pleasure in doing things Not at all 2. Feeling down, depressed, or hopeless Not at all Suicide Screen: C-SSRS Screening [place]-Suicide Severity Rating Scale (C-SSRS Screener) 1. Over the past month, have you wished you were or wished you could go to sleep and not wake up? No 2. Over the past month, have you had any actual thoughts of killing yourself? No 3. Over the past month, have you been thinking about how you might do this? Response not required due to responses to other questions. 4. Over the past month, have you had these thoughts and had some intention of acting on them? Response not required due to responses to other questions. 5. Over the past month, have you started to work out or worked out the details of how to kill yourself? Response not required due to responses to other questions. 6. If yes, at any time in the past month did you intend to carry out this plan? Response not required due to responses to other questions. 7. In your lifetime, have you ever done anything, started to do anything, or prepared to do anything to end your life (for example, collected pills, obtained a gun, gave away valuables, went to the roof but didn't jump)? No 8. If YES, was this within the past 3 months? Response not required due to responses to other questions. COVID-19 Immunization: Patient received a prior dose of the Moderna Monovalent vaccine. Documented: COVID-19 (MODERNA), MRNA, LNP-S, PF, 50 MCG/0.5 ML (AGES 12+ YEARS) Historical Date Administered: Mar 29, 2023 Series: Series 1 Lot: [id number] Exp Date: Unknown Outside Location: [place] Admin Route/Site: INTRAMUSCULAR/RIGHT DELTOID Information Source: FROM OTHER REGISTRY Influenza Immunization: The patient has received the seasonal influenza vaccine for the current season at another location. Documented: INFLUENZA, UNSPECIFIED FORMULATION Historical Date Administered: Mar 29, 2023 Lot: [id number] Exp Date: Unknown Outside Location: [place] Admin Route/Site: INTRAMUSCULAR/LEFT DELTOID Information Source: FROM OTHER REGISTRY /rachel/ ADY CALIXTO Intermediate Print Line Tailer Signed: 05/30/2023 09:10 ADY CALIXTO [facility]
--- OUTSIDE RECORDS SUMMARY | 2023-11-13 12:55 | XMS_ITS ---
Author Name [facility] [place] Organization [place] Address [address] [place] [address] Care Team Providers Care Hydraulic Boom Operator Name Role Phone ALONDRA SAHNI Primary Care [...] SUPPLEMEN FOUZIA MEDEX 2 Jan 14, 2016 [id number] [place],WILL BRITNEY PATIENT MEDICARE (WNR) MEDICARE (M) PART B Oct 14, 2015 PART B [id number] NU [place],WILL BRITNEY PATIENT MEDICARE (WNR) MEDICARE (M) PART A Oct 13, 2009 PART A [id number] NU [place],WILL BRITNEY PATIENT Selected Encounter This section includes the information on record at [place] for the Encounter. Date/Time Encounter Type Encounter Description Reason Pro vider Source Jun 12, 2023 10:44 AM Outpatient Encounter ADMIN PAT ACTIVTIES (MASNONCT) IHE [...] 20 appointments. The data comes from all [place] treatment facilities. Appointment Date/Time Appointment Type Appointme nt Facility Name September 03, 2023 10:00 AM AMBULATORY - MEDICINE [facility] Hammad [facility] Encounter Notes: All associated encounter notes This section contains the clinical notes associated to the Encounter. Date/Time Encounter Note(s) Provider Source Jun 12, 2023 10:44 AM LETTERS: LOCAL TITLE: LETTER TO PATIENT ATTEMPT TO CONTACT STANDARD TITLE: LETTERS DATE OF NOTE: JUN 12, 2023@10:44 ENTRY DATE: JUN 12, 2023@10:44:10 AUTHOR: ABBY LUNA EXP COSIGNER: URGENCY: STATUS: COMPLETED [facility] [address] [place] [address] JUN 12, 2023 SAJAN VALENCIA [address] [place] [id number] Dear SAJAN VALENCIA, [facility] [place] is trying to reach you to schedule an appointment. If you have already been in contact with the clinic and scheduled an appointment you may disregard this letter. If we do not hear from you within 14 days, we will assume you no longer desire an appointment. Please call one of the numbers provided below so that we may find a suitable date for you: Service: Dermatology Service Direct: [phone] Ext: [phone] Toll Free: [phone] Ext: [phone] We look forward to hearing from you. Sincerely, Clinical Operations ABBY LUNA [facility]
--- OUTSIDE RECORDS SUMMARY | 2023-11-13 12:55 | XMS_ITS | Encounter Summary ---
Author Organization [facility] [place] [address] Care Team Providers Care Bank Vault Clerk Name Role Phone Bernardo Nichols MD Primary Care Provider + [phone] Encounter Details Date Type Department Care Team (Late st Contact Info) Description 01/14/2018 Notes Only Cardiology at [address] [place] [address] Derrek Walker Social History Tobacco Use Types Packs/Day Years [...] on file documented as of this encounter Progress Notes * Derrek Walker - 01/14/2018 3:26 PM EDT DEFINE PCI Define PCI a Prospective, Single arm , Clinical Trial to Evaluate the Importance and Predictive Value of iFR in PCI, both Pre and Post Coronary Intervention Form Setter Steel Forms Teo Golden MD Pager# [phone] Purpose: This is a army helicopter pilot study designed to assess the relationship between iFR pullback and the distributionof coronary atheroma/stenoses as assessed by Quantitative Coronary Angiography (QCA) post angiographically successful PCI. The hypotheses of this study are: 1. iFR is impaired in a substantial proportion of patients following cable way operator- assessed angiographically successful PCI 2. Post-PCI iFR detects residual significant CAD that is not detected on QCA (defined by >50% stenosis) 3. Post PCI iFR is predictive of future adverse cardiovascular events Study Design: DEFINE-PCI is a multi-center, prospective, non-significant risk study in up to 25 centers in [facility] and internationally. Consented subjects with CAD who undergo physiologic lesion assessment with iFR<0.90 in at least 1 coronary artery are eligible for participation. Inclusion Criteria: 1. Subject must be > 18 years old 2. Subjects presenting with stable angina, silent ischemia or [id number]-YX-[id number] ACS (unstable anginaor biomarker positive) 3. Single vessel CAD with at least 2 separate lesions (?10 mm apart) of ?40% stenosis or a single long lesion of ?20mm OR multi-vessel CAD, defined as at least 2 vessels with ?40% stenosis 4. Pre-PCI iFR performed in all vessels intended for PCI 5. Pre-PCI iFR of <0.90 of at least 1 stenosis 6. Subjects are able and willing to comply with scheduled visits and tests and to provide informed consent. Exclusion Criteria: 1. or planning to become for the duration of the study 2. Acute STEMI within the past 7 days 3. Cardiogenic shock (sustained (>10 min) systolic blood pressure < 90 mmHg in absence of inotropic support or the presence of an intra-aortic balloon pump). 4. Ionotropic or temporary pacing requirement 5. Sustained ventricular arrhythmias 6. Prior CABG 7. Known ejection fraction ?30% 8. Chronic Total Occlusion (GLOVE BOARDER) of study vessel 9. Known moderate to severe mitral or aortic disease. 10. Any known medical comorbidity resulting in life expectancy < 12 months. 11. Participation in any investigational study that has not yet reached its primary endpoint. 12. Known severe renal insufficiency (eGFR <30 ml/min/1.72 m2). 13. ALDO flow <3 at baseline of study vessel 14. Intra-coronary thrombus on baseline angiography The subject was deemed ineligible for participation in the DEFINE-PCI clinical trial based on Inclusion Criteria number(s): 3, 4, & 5 referenced above. Mr. Gonzalez had non-obstructed coronary arteries and will not be included in the trial. documented in this encounter Plan of Treatment Not on file documented as of this encounter Visit Diagnoses Not on filedocumented in this encounter Care Teams Bank Vault Clerk Relationship Specialty Start Date End Date Bernardo Nichols MD [address] [address] PCP - General General Internal Medicine 01/10/18 documented as of this encounter
--- OUTSIDE RECORDS SUMMARY | 2023-11-13 12:55 | XMS_ITS ---
Author Name [facility] [place] [facility] [place] Address [address] [place] [address] Care Team Providers Care Apron Worker Name Role Phone ALONDRA SAHNI Primary Care [...] Policy Johns's Name Patient's Relationship to Policy Jhons [place] ([place]ARD) MEDICARE SUPPLEMEN FOUZIA MEDEX 2 Jan 14, 2016 [id number] [place] PATIENT MEDICARE (WNR) MEDICARE (M) PART B Oct 14, 2015 PART B [id number] NU [place] PATIENT MEDICARE (WNR) MEDICARE (M) PART A Oct 13, 2009 PART A [id number] [id number] [place] PATIENT Selected Encounter This section includes the information on record at [place] for the Encounter. Date/Time Encounter Type Encounter Description Reason Pro vider Source Mar 05, 2023 01:46 PM Outpatient Encounter ADMIN PAT ACTIVTIES (MASNONCT) [...] 20 appointments. The data comes from all [place] treatment facilities. Appointment Date/Time Appointment Type Appointme nt Facility Name May 30, 2023 09:00 AM AMBULATORY - NONE [facility] May 30, 2023 01:00 PM AMBULATORY - MEDICINE [facility] September 03, 2023 10:00 AM AMBULATORY - MEDICINE GRISEL Hammad [facility] Encounter Notes: All associated encounter notes This section contains the clinical notes associated to the Encounter. Date/Time Encounter Note(s) Provider Source Mar 05, 2023 01:46 PM ADMINISTRATIVE NOT E: LOCAL TITLE: Has Admin Note STANDARD TITLE: ADMINISTRATIVE NOTE DATE OF NOTE: MAR 05, 2023@13:46 ENTRY DATE: MAR 05, 2023@13:47:09 AUTHOR: PARVEEN ANDREW EXP COSIGNER: URGENCY: STATUS: COMPLETED Reason for call Clinic Name: [facility] 1st call-[place] called to schedule. He is aware Dr. Arevalo has left the [facility] and we are in the process of hiring a new provider. In the meantime if he has any acute or medication needs we can have the acute provider address them. /rachel/ PARVEEN ANDREW Signed: 03/05/2023 13:48 PARVEEN ANDREW [facility]
--- OUTSIDE RECORDS SUMMARY | 2023-11-13 12:55 | XMS_ITS | Encounter Summary ---
Author Name [facility] [place] Address [address] [place] [address] Care Team Providers Care Trailer Driver Name Role Phone ALONDRA SAHNI Primary Care [...] SUPPLEMEN FOUZIA MEDEX 2 Jan 14, 2016 [id number] [place] PATIENT MEDICARE (WNR) MEDICARE (M) PART B Oct 14, 2015 PART B [id number] [place] PATIENT MEDICARE (WNR) MEDICARE (M) PART A Oct 13, 2009 PART A [id number] [place] PATIENT Selected Encounter This section includes the information on record at [place] for the Encounter. Date/Time Encounter Type Encounter Description Reason Pro vider Source May 06, 2023 02:06 PM Outpatient Encounter TELEPHONE PRIMARY CARE IHE Encounter Template Text not used by [place] Plan of Treatment: Future Appointments (+ 6 [...] 30, 2023 09:00 AM AMBULATORY - NONE [facility] May 30, 2023 01:00 PM AMBULATORY - MEDICINE [facility] September 03, 2023 10:00 AM AMBULATORY - MEDICINE [facility] Encounter Notes: All associated encounter notes This section contains the clinical notes associated to the Encounter. Date/Time Encounter Note(s) Provider Source May 06, 2023 02:06 PM LETTERS: LOCAL TITLE: Letter to Patient - [place] STANDARD TITLE: LETTERS DATE OF NOTE: MAY 06, 2023@14:06 ENTRY DATE: MAY 06, 2023@14:06:20 AUTHOR: ENA GUIDRY EXP COSIGNER: URGENCY: STATUS: COMPLETED DEPARTMENT OF [place] [address] MAY 06, 2023 SAJAN VALENCIA [address] [place] [address] Dear SAJAN VALENCIA: It was a pleasure to speak to you today. I have enclosed information regarding CSP, VDC and contact information for the [facility] [place] [facility]. Once you have an opportunity to review this information, please call me with any questions. Sincerely, Ena Guidry, RN Outpatient Nurse Cell Maker [facility] ENA GUIDRY [facility]
--- OUTSIDE RECORDS SUMMARY | 2023-11-13 12:55 | XMS_ITS ---
Author Name [facility] [place] Address [address] [place] [address] Care Team Providers Care Client Advisor Name Role Phone ALONDRA SAHNI Primary Care [...] SUPPLEMEN FOUZIA MEDEX 2 Jan 14, 2016 [id number] [place] PATIENT MEDICARE (WNR) MEDICARE (M) PART B Oct 14, 2015 PART B [id number] [id number] [place] PATIENT MEDICARE (WNR) MEDICARE (M) PART A Oct 13, 2009 PART A [id number] NU [place] PATIENT Selected Encounter This section includes the information on record at [place] for the Encounter. Date/Time Encounter Type Encounter Description Reason Pro vider Source Jun 28, 2023 12:27 PM Outpatient Encounter ADMIN PAT ACTIVTIES (MASNONCT) [...] 20 appointments. The data comes from all [place] treatment facilities. Appointment Date/Time Appointment Type Appointme nt Facility Name September 03, 2023 10:00 AM AMBULATORY - MEDICINE [facility] Hammad [facility] Encounter Notes: All associated encounter notes This section contains the clinical notes associated to the Encounter. Date/Time Encounter Note(s) Provider Source Jun 28, 2023 12:27 PM LETTERS: LOCAL TITLE: LETTER TO PATIENT ATTEMPT TO CONTACT STANDARD TITLE: LETTERS DATE OF NOTE: JUN 28, 2023@12:27 ENTRY DATE: JUN 28, 2023@12:27:53 AUTHOR: GITA HEDRICK EXP COSIGNER: URGENCY: STATUS: COMPLETED LETTER TO PATIENT ATTEMPT TO CONTACT Has ADDENDA [facility] [address] [place] [address] JUN 28, 2023 SAJAN VALENCIA [address] [place] [address] Dear SAJAN VALENCIA, [facility] in [place] is trying to reach you to schedule [...] date for you: Service: Dermatology Service Direct: [phone] Ext: [phone] Toll Free: [phone] Ext: [phone] We look forward to hearing from you. Sincerely, Clinical Operations 06/28/2023 ADDENDUM STATUS: COMPLETED Left voicemail to notify to call back to schedule appt. Clinic: DERMATOLOGY OUTPATIENT /rachel/ GITA HEDRICK [facility] Signed: 06/28/2023 12:28 GITA HEDRICK [facility]
--- OUTSIDE RECORDS SUMMARY | 2023-11-13 12:56 | XMS_ITS | Encounter Summary ---
Author Organization [facility] [place] [address] Care Team Providers Care Co Director Name Role Phone Bernardo Nichols MD Primary Care Provider [phone] Encounter Details Date Type Department Care Team (Latest Contact Info) Description 01/14/2018 9:20 AM EDT - 01/14/2018 7:01 PM EDT Hospital Encounter [place] [address] Teodoro Valdovinos MD [facility] [address] Abnormal stress test Discharge Disposition: Home Social History Tobacco Use [...] on file documented as of this encounter Last Filed Vital Signs Vital Sign Reading [...] Mass Index 27.68 01/14/2018 10:10 AM EDT documented in this encounter Discharge Instructions * Discharge Instructions* Jennifer Anderson RN - 01/14/2018 4:37 PM EDT Activity If you are discharged the same day as your procedure, do not drive yourself home. Arrange to have another person drive. You may walk around when you get home, but keep your activity at a minimum until the morning. Do not bend over, strain, or lift heavy objects for 24 hours after the procedure. Do not participate in active sports for 48 hours. You may engage in sexual activity after 48 hours. These restrictions will not apply if the catheter was placed in a blood vessel in your arm. Catheter Insertion Area Care Take the band-aid off the catheter insertion area the morning following the procedure. You may takea shower if you wish. Wash the area with soap and water. Look for signs of infection over the next several days. A little spot of blood at the catheter insertion area is not unusual. A bruise or small lump under the skin is normal; they generally disappear in 3-4 days. For the first several days at home if you cough or sneeze, hold your groin to help prevent bleeding. Expect some mild tenderness over the area where the catheter was inserted. You will notice this after the local anesthetic (numbing medicine) wears off. This should improve during the 24-48 hours after the procedure. Take tylenol if needed. Contact your doctor if the discomfort worsens. Problems to Watch For If there is bright red blood flowing from the catheter insertion area: *stop what you are doing and lie down *Hold pressure steadily on the area for 15 minutes *Call for Help *If the bleeding does not stop in 15 minutes call 911 for an ambulance. If there is swelling with black and blue color at the catheter insertion area, there may be bleeding inside. Contact the doctor if there is any increase in size. Look at the insertion site for the first few days at home. Signs of infection are: *redness *Swelling *Yellow, white, green or brown foul smelling drainage. *increased soreness If you think there is an infection, take your temperature. Then call your doctor. The limb on the side where you had your catheterization should look and feel normal in its color, sensation, and temperature. If your leg becomes cool, pale, blue or changing color with numbness and tingling, contact your doctor. If you feel faint or dizzy, lie down with your feet elevated. Have someone call the doctor. If you are alert, drink fluids. How to Deal with Chest pain If you had only the cardiac catheterization, treat any angina or chest discomfort as instructed. Stop what you are doing, and sit or lie down. If prescribed, take nitroglycerin under your tongue. If the angina isn't relieved, take another nitroglycerine in 5 minutes. After another 5 minutes, a third nitroglycerine may be taken. If the angina isn't improved you should call for an ambulance to bring you to the nearest hospital emergency room. If your angina is more frequent or more sever than before, contact your doctor. We usually would not expect to have angina after an angioplasty. If you do get angina, treat it as you did before but also contact your doctor. Return to Work The doctor will usually have told you when to return to work. If you do not perform heavy physical labor, most people can return to work in a few days. Diet Follow your previous diet unless otherwise instructed. Cardiac Risk Factors If you have coronary artery disease, it is important that you help control it by reducing your cardiac risk factors. If you smoke, we urge you to stop now. If you think this is going to be a problem,let us know so that we may help you. We have dieticians who can help you learn about low fat, low cholesterol diet. Cardiac rehabilitation programs can help you set up a regular exercise program. Work with your doctor if you have high blood pressure or sugar diabetes to keep these under control. Medications ____Take your usual medications ____Medication changes: If you are taking medicines prescribed by your doctor, do not take any uszl-bii-nbmcixy medicines or herbal preparations without first discussing this with your doctor or pharmacist. There is the possibility of side effect and interactions when these are combined. Follow up Care Who to Call with Questions or Problems If there are any questions or problems that you think might be related to your cardiac cath or angioplasty, contact the reconditioning associate transmission system operator by calling [facility] at . POST ANESTHESIA INSTRUCTIONS Go home, rest, use caution on stairs. Change positions slowly. Do not smoke if you are alone. Diet light to regular as tolerated today. If nausea occurs start with clear liquids and progress slowly. No driving, operating machinery, alcoholic beverages and no important decisions for 24 hours. Monitor IV site for signs and symptoms of infection: increasing redness, swelling, foul drainage, if occurs contact M.D. Patients who have had endotrachial tubes (this tube, used by anesthesia department, is passed down your throat after you are asleep, to ensure safe air passage during your operation). A sore throat is normal due to the tube. Cold liquids or soothing lozenges will help ease the discomfort. The generalized muscle aches are due to the medication given to you just before the tube is inserted. As the medication wears off, you may develop muscle soreness, which usually goes away in 12-24 hours. documented in this encounter Medications at Time of Discharge [...] Chest pain. documented as of this encounter Progress Notes * Jennifer Anderson RN - 01/14/2018 7:01 PM EDT 1815- dc instructions reviewed with patient and patients . Pt verbalized understanding. Dressing to right radial is CDI. +csmt to RUE. * Mj Boyd RN - 01/14/2018 10:57 AM EDT I had the pleasure of meeting with subject Jim Gonzalez to review the DEFINE PCI Trial. Following the determination this potential participant did not have any obvious evidence of clinical exclusion to the DEFINE PCI Trial, the subject was provided with a written informed consent version 08/01/2017, [facility] Exp 08/16/2018 and was given adequate time for review of the consent. The purpose, procedures, risks, potential benefits of the study, as well as alternatives to participation were reviewed and questions were answered.The subject signed the informed consent agreeing to participate, providing all inclusion criteria are satisfied and no exclusion criteria are met. The subject was provided with a copy of the signed informed consent document. No study related activities were performed prior to completion of the consent process. Opportunity for questions was provided and all questions were answered to the satisfaction of the subject. Contact information for Cardiovascular Clinical Medicine Research was provided. The subject return verbalizes understanding of the protocol defined follow up r equirements including; telephone contact at 30 days, 6 months, and 1 year. documented in this encounter H&P Notes * YoungSloan kebede Rafa - 01/14/2018 10:20 AM EDT Images from the original note were not included. Patient Name: Jim Gonzalez Patient Age: 72 y.o. Birthdate: 1945 Admit date: 01/14/2018 Attending Physician: Teodoro Valdovinos MD Jim Gonzalez is a 72 y.o. male referred for cardiac catheterization by Dr. Bhanu Luque for evaluation of CAD. This gentleman has a history of gastroesophageal reflux disease, COPD, hyperlipidemia, seizure activity who has been having exertional chest tightness, dyspnea, lightheadedness for the last couple ofmonths. He had a treadmill stress test. He exercised into stage II Tyree protocol and at that time he developed [address] depressions in V4 to V6, also dropped his systolic blood pressure from 190-140 and became lightheaded and exercise was terminated and was concluded as positive. He also had an echocardiogram done at [facility] on 01 January 2018 which showed preserved LV systolic function ejection fraction 65%, no wall motion abnormalities, RV apical hypokinesis, no significant valve disease. He also had a chest x-ray done this last month which did not show any acute abnormality. His labs from 31 December 2017 showed white cell count 5.7, hemoglobin 14.8, platelet count 208, BUN 18, creatinine 1.0, potassium 4.2. He quit smoking about 30 years ago, father had history of coronary artery disease. There have not been any changes in health status since last seen in clinic. No fevers, no chills, no bleeding. Outpatient Prescriptions Marked as Taking for the 01/14/18 encounter (Hospital Encounter) Medication Sig Dispense Refill ??? simvastatin (ZOCOR) 40 mg Tablet Take 40 mg by mouth nightly. ??? carBAMazepine (TEGRETOL) 100 mg Tablet, Chewable Take 200 mg by mouth nightly. ??? aspirin 81 mg Tablet, Delayed Release (E.C.) Take 81 mg by mouth nightly. ??? magnesium 250 mg Tablet Take 500 mg by mouth nightly. ??? metoprolol tartrate (LOPRESSOR) 50 mg Tablet Take 50 mg by mouth nightly. ??? nitroGLYcerin (NITROSTAT) 0.4 mg Tablet, Sublingual Place 0.4 mg under the tongue every 5 minutes as needed for Chest pain. BP (!) 190/93 Pulse 58 Temp 36.2 ??C (97.2 ??F) (Temporal) Resp 18 Ht 177.8 cm (5' 10) Wt 87.5 kg (193 lb) SpO2 96% BMI 27.69 kg/m2 PE NAD CV: RRR, S1 S2 physiologic, no jugular venous distention. Pulm: CTAB, no w/r/r Abd: soft, NT, ND, +BS, no bruits Vasc: 2+ bilat radial with favorable Kendall's test on the R, 2+ bilat femoral pulses w/o bruits, 2+ bilat DP pulses Extr: wwp, no edema A/P 72 y.o. male here for cardiac catheterization. 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 Sedation Plan: moderate (conscious sedation) documented in this encounter Miscellaneous Notes * Brief Op Note - Teodoro Valdovinos MD - 01/14/2018 3:45 PM EDT Preliminary Cardiac Catheterization Procedure Note: Patient Name: Jim Gonzalez : [id number] MR#: [id number] Case Date: 01/14/2018 Operators: * Teodoro Valdovinos MD - Primary * Sebastian Gonzalez MD - Fellow-Interventional * Patrick Resendiz MD - Fellow-Diagnostic Preoperative diagnosis: Abnormal stress test [R94.39] Procedure(s) performed: coronary angiography, left heart cath Access: 6 Sl R radial => TR band Prior to initiation of the procedure, the patient's frailty score was determined to be: 2 (see definitions below). A time-out was conducted prior to the start of the procedure to verify the correct patient and procedure, procedure location, and all relevant critical information. Preliminary findings: Codominant circulation; small RCA with high anterior take- off, minimal luminal irregularities in LAD but no significant disease. LVEDP 10. The patient tolerated the procedures smoothly and was transferred from the cardiac catheterization lab to the next level of care in stable condition. No evident early complications. Full report to follow. TEODORO VALDOVINOS MD Definitions from [employer] and Aging Clinical Frailty Scale: 1: VERY FIT: energetic, exercising regularly 2: WELL: no active disease symptoms, exercising occasionally or seasonally 3: MANAGING WELL: well-controlled medical problems, no exercise more than routine walking 4: VULNERABLE: symptoms limit activities, though not dependent on others for daily help. Often complain for being slowed up or tired 5: MILDLY FRAIL: more evidently impaired, needing help with high order ADLs such as finances, transportation, heavy housework, medications, walking outside, meal preparation 6: MODERATELY FRAIL: requiring help with all outside activities and with minor financial accounting manager. May need help with bathing and dressing. 7: SEVERELY FRAIL: completely dependent for personal care, but stable and not at high risk of dyingwithin 6 months 8: VERY SEVERELY FRAIL: completely dependent, approaching end of life. Not likely to recover from even minor added illness 9: TERMINALLY ILL: Life expectancy of less than 6 months, even if not otherwise frail documented in this encounter Plan of Treatment Not on file documented as of this encounter Procedures Procedure Name Priority Date/Time Associated Diagnosis Comments EKG 12-LEAD Routine 01/14/2018 10:34 AM EDT Abnormal stress test documented in this encounter Results * EKG 12 Lead (01/14/2018 10:34 AM EDT) Ventricular rate 55 BPM MUSE SYSTEM Atrial Rate 55 BPM MUSE SYSTEM P-R Interval 160 ms MUSE SYSTEM QRS Duration 104 ms MUSE SYSTEM Q-T Interval 406 ms MUSE SYSTEM QTC Calculated (Bezet) 388 ms MUSE SYSTEM Calculated P [place] 50 degrees MUSE SYSTEM Calculated R [place] -47 degrees MUSE SYSTEM Calculated T [place] -7 degrees MUSE SYSTEM INTERPRETATION Sinus bradycardia Left anterior fascicular block Abnormal ECG No previous ECGs available Confirmed by MD Elena, Alexis Ann () on 01/14/2018 9:18:48 PM MUSE SYSTEM 01/14/2018 10:3 4 AM EDT 01/14/2018 9:18 PM EDT Davey Liu MD ECG ORDERABLES MUSE SYSTEM documented in this encounter Visit Diagnoses Diagnosis Abnormal stress test Other nonspecific abnormal cardiovascular system function study documented in this encounter Administered Medications Inactive Administered Medications - up to 3 most recent administrations Medication Order MAR Action Action Date Dose Rate Site lidocaine (XYLOCAINE) 10 mg/mL (1 %) injection 3 mg 3 mg (0.3 mL), Subcutaneous, ONCE PRN, 1 dose, Starting on Sat01/14/18 at 1015, Until Sat01/14/18 at 2100, with discomfort with PIV insertion, Cath (Day of Procedure), Routine sodium chloride 0.9 % flush 5 mL 5 mL, Intravenous, EVERY 12 HOURS, First dose on Sat01/14/18 at 1030, Until Discontinued, Cath (Day of Procedure), Routine sodium chloride 0.9 % flush 5-20 mL 5-20 mL, Intravenous, EVERY 1 MIN PRN, Starting on Sat01/14/18 at 1015, Until Tu01/14/18 at 2101, flush, Flush pertains to all indwelling lines. Flush per protocol found in the job aid using the link provided on this medication record., Cath (Day of Procedure), Routine sodium chloride 0.9% infusion 150 mL/hr, Intravenous, CONTINUOUS, Starting on Sat01/14/18 at 1600, Until Sat01/14/18 at 1859, Recovery (Recovery-Hospital Unit) New Bag 01/14/2018 3:40 PM EDT 150 mL/hr 150 mL /hr documented in this encounter Active and Recently Administered Medications Times are shown in EDT. Scheduled Medication Order 01/12/2018 01/13/2018 01/14/2018 sodium chloride 0.9 % flush 5 mL 5 mL, Intravenous, EVERY 12 HOURS, First dose on Sat01/14/18 at 1030, Until Discontinued, Cath (Day of Procedure), Routine 1030 (Due) Continuous Medication Order 01/12/2018 01/13/2018 01/14/2018 sodium chloride 0.9% infusion 150 mL/hr, Intravenous, CONTINUOUS, Starting on Sat01/14/18 at 1600, Until Sat01/14/18 at 1859, Recovery (Recovery-Hospital Unit) 1540 (New Bag - Prov ider: Aleha Herrmann RN) PRN Medication Order 01/12/2018 01/13/2018 01/14/2018 atropine injection 1 mg 1 mg, Intravenous, Administer over 4 Hours, EVERY 5 MIN PRN, 2 doses, Starting on Sat01/14/18 at 1533, Until Sat01/14/18 at 2101, Other, vasovagal episode, Call interventional MD., Cath (Recovery-Hospital Unit), Routine fentaNYL (PF) 50mcg/mL injection 25 mcg, Intravenous, Administer over 4 Hours, EVERY 30 MIN PRN, 4 doses, Starting on Sat01/14/18 at 1533, Until Sat01/14/18 at 2101, Pain, sheath removal, May repeat once while in Cath Recovery Unit, Cath (Recovery-Hospital Unit), Routine fentaNYL 50 mcg/mL multi-dose injection (CANCELED) ONCE PRN, Starting on Sat01/14/18 at 1403, Until Sat01/14/18 at 1522, Intra-Operative (Intra-Procedure), Routine 1403 (Given - Provid er: Leatha Morales RN)1440 (Given - Provider: Leatha Morales RN)1501 (Given - Provider: Aileen Archibald RN) heparin (porcine) injection (CANCELED) ONCE PRN, Starting on 01/14/18 at 1410, Until Tue 18 at 1522, Cath (Intra-Procedure), Routine 1410 (Given - Provid er: Aileen Archibald RN)1505 (Given - Provider: Aileen Archibald RN) iohexol (OMNIPAQUE) 350 mg/mL solution (CANCELED) ONCE PRN, Starting on 01/14/18 at 1521, Until Tue 18 at 1522, Cath (Intra-Procedure), Routine 1521 (Given - Provid er: Teodoro Valdovinos MD - Comment: Contrast in Wastewater Engineer) lidocaine (XYLOCAINE) 10 mg/mL (1 %) injection 3 mg 3 mg (0.3 mL), Subcutaneous, ONCE PRN, 1 dose, Starting on 01/14/18 at 1015, Until 01/14/18 at 2101, with discomfort with PIV insertion, Cath (Day of Procedure), Routine lidocaine (XYLOCAINE) 10 mg/mL (1 %) injection (CANCELED) ONCE PRN, Starting on 01/14/18 at 1401, Until Tue 18 at 1522, Cath (Intra-Procedure), Routine 1401 (Given - Provid er: Teodoro Valdovinos MD) midazolam (PF) (VERSED) 1 mg/mL injection 1 mg 1 mg, Intravenous, Administer over 4 Hours, EVERY 1 HOUR PRN, 2 doses, Starting on 01/14/18 at 1533, Until Tue 18 at 2101, Sleep, For sheath removal, May repeat once while in Cath Recovery Unit., Cath (Recovery-Hospital Unit), Routine midazolam (PF) (VERSED) 1 mg/mL multi-dose injection (CANCELED) ONCE PRN, Starting on 01/14/18 at 1403, Until Tue 18 at 1522, Cath (Intra-Procedure), Routine 1403 (Given - Provid er: Leatha Morales RN)1440 (Given - Provider: Leatha Morales RN)1501 (Given - Provider: Aileen Archibald RN) nitroGLYcerin 100 mcg/mL intracoronary dilution (CANCELED) ONCE PRN, Starting on Sat01/14/18 at 1407, Until Sat01/14/18 at 1522, Cath (Intra-Procedure), Routine 1407 (Given - Provid er: Sebastian Gonzalez MD - Comment: per Radial Protocol)1507 (Given - Provider: Teodoro Valdovinos MD) sodium chloride 0.9 % flush 5-20 mL 5-20 mL, Intravenous, EVERY 1 MIN PRN, Starting on Sat01/14/18 at 1015, Until Sat01/14/18 at 2101, flush, Flush pertains to all indwelling lines. Flush per protocol found in the job aid using the link provided on this medication record., Cath (Day of Procedure), Routine verapamil (ISOPTIN) injection (CANCELED) ONCE PRN, Starting on Sat01/14/18 at 1407, Until Sat01/14/18 at 1522, Administer over 2 Minutes, Cath (Intra-Procedure) 1407 (Given - Provid er: Sebastian Gonzalez MD - Comment: per Radial Protocol) documented in this encounter Care Teams Co Director Relationship Specialty Start Date End Date Bernardo Nichols MD [address] [place] [id number] PCP - General General Internal Medicine 01/10/18 documented as of this encounter
--- OUTSIDE RECORDS SUMMARY | 2023-11-13 12:56 | XMS_ITS | Encounter Summary ---
Author Organization [facility] Address [address] [place] [address] Care Team Providers Care Airline Transport Pilot Name Role Phone Bernardo Nichols MD Primary Care Provider [phone] Reason for Visit * Reason Onset Date Comments Blood Pressure Check 04/03/2023 Encounter Details Date Type Department Care Team (Late st Contact Info) Description 04/03/2023 Telephone [facility] Neurology - [address] [id number] Aida Zaragoza MD [address] [place] [address] [address] [place] [phone] Blood Pressure Check Social History Tobacco Use Types Packs/Day Years Used Date Smoking Tobacco: Former Cigarettes 2 10 1 960 - 1970 Smokeless Tobacco: Never Alcohol Use Standard Drinks/Week Comments Yes 0 (1 standard drink = 0.6 oz pur e alcohol) AUDIT-C Answer Date Recorded Q1: How often do you have a drink containing alc ohol? 2-4 times a month 08/08/2020 Q2: How many drinks containi ng alcohol do you have on a typical day when you are drinking? Not asked 08/08/2020 Q3: How often do you have si x or more drinks on one occasion? Not asked 08/08/2020 Interpersonal Safety Answer Date Record ed Physically Hurt Never 11/15/2019 Verbally Threaten Not on file 11/15/2019 Sex and Gender Information Value Date Recorded Sex Assigned at Not on file Gender Identity Male 02/04/2020 16:10 EDT Sexual Orientation Not on file documented as of this encounter Functional Status Functional Status Response Date of Assess ment Because of a physical, menta l, or emotional condition, does this person have difficulty doing errands alone such as visiting a doctor's office or shopping? No 01/18/2022 Cognitive Status Response Date of Assessm ent Because of a physical, menta l, or emotional condition, does this person have serious difficulty concentrating, remembering, or making decisions? No 01/18/2022 documented as of this encounter Miscellaneous Notes * Telephone Encounter - Vanesa Ruelas RN - 04/05/2023 1528 EST Power calls in to report orthostatic BP reads; he is able to relay correct procedure for this. He is aware that someone will rtc to him once feedback rec'd from provider He reports that Dr Vo d/t fludrocortisone approx 4 day into monitoring his BP. He states he had no noticeable effects in doing to and BP range remained same He has been consistent in taking BP qAM and evening. His reads vary widely; Systolic reads range from low of 126 to high of 179. He notes that the range of reads is the same both AM and PM Diastolic reads range from 63 to 96 This proposal manager writer did not ask for specific info w respect to syst/moyer w each read He states he years-long AMEZCUA persists; begins in AM approx mid breakfast, ceases at approx dinner time. Sometimes top of head others in back behind ears. Fld intake remains approx 1.5L/day. Routing to Dr Lackey * Telephone Encounter - Mariana Simpson - 04/05/2023 1440 EST iJm was calling in this afternoon looking to speak with nurse Vanesa in regards to a message that he left earlier this week. I reached out to Vanesa but she was finishing up a phone call and would call him back in about 5-10 minutes. He was fine with that. Thank you * Telephone Encounter - Teo Allen - 04/03/2023 1425 EST Jim called asking to speak with nurse Vanesa to give her blood pressure results that he said sheasked for at the end of February. Nurse Vanesa off today, nurse Aida asked me to take a message. Jim didn't want to leave a message saying he would call again tomorrow wanting to speak directly with a nurse, specifically wants to talk with nurse Vanesa. documented in this encounter Plan of Treatment Upcoming Encounters Date Type Department Care Team (Late st Contact Info) Description 12/05/2023 13:30 EDT Telemedicine [facility] Neurology [address] [id number] Aida Zaragoza MD [address] [place] [phone] 01/15/2024 9:30 EDT Procedure visit [address] [id number] Aida Zaragoza MD [address] [place] [phone] 01/27/2024 8:15 EDT Telemedicine [address] [phone] Nickie Zaragoza NP [address] [place] [phone] 04/22/2024 8:30 EST Procedure visit [address] [id number] Aida Zaragoza MD [address] [place] [phone] 07/23/2024 8:30 EDT Procedure visit [facility] Neurology [address] [address] Aida Zaragoza MD [address] [facility], [address] [place] [phone] documented as of this encounter Visit Diagnoses Not on filedocumented in this encounter Care Teams Airline Transport Pilot Relationship Specialty Start Date End Date Bernardo Nichols MD [address] [place], [place] [phone] PCP - General 06/10/17 documented as of this encounter
--- OUTSIDE RECORDS SUMMARY | 2023-11-13 12:56 | XMS_ITS | Encounter Summary ---
Author Organization [facility] Address [address] [place] [address] Care Team Providers Care Family Readiness Support Assistant Name Role Phone Bernardo Nichols MD Primary Care Provider [phone] Reason for Visit * Reason Comments Other Xeomin Injection * Medication Prior Authorization (Routine/Next Available) - Specialty Report Received Specialty Diagnoses / Procedures Referred By Nikhil arita Referred To Contact Neurology Diagnoses Sialorrhea Aida Zaragoza MD [address] [place] [phone] [facility] Neurology [address] [address] Referral ID Status Reason Start Date Expiration Date Visits Requested Visits Authorized [id number] Specialty Report Received Medication Prior Authorization 09/13/2022 09/14/2023 4 4 Encounter Details Date Type Department Care Team (Latest Contact Info) Description 01/24/2023 9:30 EDT Procedure visit [facility] Neurology - [address] [id number] Aida Zaragoza MD [address] [place] [phone] Parkinson's disease without dyskinesia or fluctuating manifestations (Primary Dx); Sialorrhea; Other fatigue; Restless legs syndrome (RLS) Social History Tobacco Use Types Packs/Day Years Used Date Smoking Tobacco: Former Cigarettes 2 10 1 960 - 1969 Smokeless Tobacco: Never Tobacco Cessation:Counseling Given: Not Answered Alcohol Use Standard Drinks/Week Comments Yes 0 [...] Sign Reading Time Taken Comments Blood Pressure 158/92 01/24/2023 0951 EDT Pulse 76 01/24/2023 0951 EDT Temperature - - Respiratory Rate 20 01/24/2023 0951 EDT Oxygen Saturation 97% 01/24/2023 0951 EDT Inhaled Oxygen Concentration - - Weight - - Height - - Body Mass Index - - documented in this encounter Functional Status Functional Status Response [...] No 01/18/2022 documented as of this encounter Patient Instructions * Patient Instructions* Aida Zaragoza MD - 01/24/2023 9:30 EDT Step 1: okay to stop Sinemet (carbidopa-levodopa tablets) Step 2: restart selegiline 5mg tablets twice daily (morning and noon) Step 3: I will request insurance authorization for Rytary (carbidopa-levodopa capsules) - these aresometimes better tolerated but can help with mobility, tremor, stiffness, etc. In about one month (mid-February), please call or message with an update - or sooner if needed documented in this encounter Ordered Prescriptions Prescription Sig Dispensed Refills Start Date End Da te selegiline (ELDEPRYL) 5 mg tablet Take 1 Tablet by mouth 2 times daily. 180 Tablet 3 01/24/2023 carbidopa-levodopa (RYTARY) 23.75-95 mg ER capsule Take 2 Capsules by mouth 3 times daily. 180 Capsule 3 01/24/2023 04/19/2023 documented in this encounter Progress Notes * Aida Zaragoza MD - 01/24/2023 0930 EDT Images from the original note were not included. Type of visit: Follow-up visit Clinician Requesting Consultation: Aida Zaragoza MD [address] [place] [address] [address] [place] [phone] Primary Rn Pediatric: Bernardo Minaya [facility] [id number] ASSESSMENT & PLAN / RECOMMENDATIONS 1. Parkinson's disease without dyskinesia or fluctuating manifestations 2. Sialorrhea 3. Other fatigue 4. Restless legs syndrome (RLS) Jim Gonzalez is a 77 y.o. gentleman who returns to the [facility] Movement Disorders clinic for evaluation and management of parkinsonism and other neurological symptoms. He was first evaluated for potential parkinsonism in 2019 via Telehealth, and started on carbidopa-levodopa at a subsequent visit in early 2020. He has not appreciated a robust response to the medication even after reviewing potential symptoms that could improve, and he did not appreciate any worsening after weaning off the medication. Today, his examination still appears consistent with mild parkinsonism - relatively undertreated due to side effects / perceived lack of benefit with medication trials so far. -- PARKINSON DISEASE: at least 3 years of asymmetric right hemibody parkinsonism that appears most consistent with idiopathic PD, though the lack of clear benefit with levodopa (up to 600mg) and now selegiline is somewhat concerning. There are no clear signs of an atypical disorder, though he does have some hypometric saccades and decreased excursions when gazing upward. No other features that would be concerning for PSP or any other parkinsonian disorder at this time. I suggested he retry levodopa with selegiline, but unfortunatley he discontinued the latter without clear reason. I would like to reintroduce the selegiline, but also instructed him to stop taking Sinemet tablets in lieu of Ry tary (pending insurance approval). - restart selegiline 5mg tablets: 1 tablet daily x 1 week, then 1 tablet twice daily thereafter - stop carbidopa-levodopa 25/100mg tablets, and start Rytary capsules: ordered 95mg capsules - 2 capsules TID to start - encouraged exercise and physical activity as much as tolerated -- SIALORRHEA: ongoing and bothersome,increased salivation during the day and at night. Reviewed non-medication treatment strategies to employ during the daytime in addition to Xeomin injections. He did not appreciate a sustained improvement with the last injections, so will repeat today at the same dose (approval is for 100 units); can consider a dose increase next visit if still no sustained kris efit. - Xeomin injections performed today for sialorrhea, can repeat q12 weeks - atropine drops provided for sublingual use -- FATIGUE / DAYTIME SLEEPINESS: he describes an ongoing fogginess that does not seem to be linked with medications, headaches, or use of CPAP. It is possible that he could be experiencing blood pressure fluctuations, as he does have known hypotension (takes fludrocortisone). It could also represent bradyphrenia related to parkinsonism. Since the last visit, he did discontinue selegiline which can have a stimulant effect, so this may have contributed to worsening fatigue. -- RESTLESS LEGS SYNDROME: increased risk given parkinsonism, but symptoms have remained stable with the current dosage of medication. - continue with gabapentin 300mg at bedtime -- REMOTE HISTORY OF REPORTED EPILEPSY: per patient, no seizures in >20 years and he is not currently medicated. Would not resume an AED unless something new were to occur. Return to clinic: 3 months, on-site SUBJECTIVE Reason for consultation/ Chief complaint: Parkinson disease History of Presenting Illness (HPI): Jim Gonzalez is a 77 y.o. gentleman who was referred to the [facility] Movement Disorders clinic for evaluation and management of possible parkinsonism. Accompanied by: unaccompanied Handedness: right-handed Brief history: Mr. Gonzalez was previously evaluated in the Neurology resident clinic for a number of issues - headaches, focal seizures, parasthesias. At the last visit, they felt that the right arm dysfunction was likely Parkinson disease. He states that this has been ongoing for a number of years - a numbness and tingling sensation that starts in the upper arm and radiates down the arm. The muscles in the arm then tense up and contract. He states that it happens in episodes while he is at rest, can be once a day or up to 10 times per day. In April 2020, Dr Haq started him on carbidopa-levodopa. The dose was increased this year. He is not sure that it has helped with anything, though he is also not sure what it is supposed to help. He denies any issue with tremor, stiffness (aside from these episodes), etc. He walks 2-3 miles every day. Needs to take some breaks during the walk - has soreness in the low back and legs will feel weak. Denies falls. Describes restless legs syndrome over the past few months - started on gabapentin. Interval history: He was able to restart the carbidopa-levodopa but doesn't feel that it has been helpful - he tried taking up to 2 tablets 2-3 times per day, but then was bothered by a tightness in the jaw that is still ongoing every time he takes the levodopa. He also stopped taking the selegiline, stating that he thought he had side effects, but there is no documentation of this. He is also taking high dose thiamine; initially felt that there was a difference, but now feels like the fatigue is setting back in. He is most bothered by extreme fatigue, tremor on the left side of the body. Also notes a red streak running up his back that comes and goes. Last injections: Date: 09/13/2022 Benefit: Slight improvement Side effects: Denies ROS: A comprehensive 13 system review was negative or documented in the HPI with the following additions/exceptions: - handwriting has somewhat deteriorated - constipation - ongoing for a number of years, current uses Miralax every other day; going only twice per week - urinary frequency, nocturia x 2-3 - denies anosmia - BP tends to fluctuate - no pattern to it; takes fludrocortisone - dizziness - was postural, now improved - some vivid, detailed dreams, does not act them out - RLS - started 2 months ago; states that tension builds up in the muscles and then he will jerk the leg, and it feels better for a time; takes gabapentin which helps - states that he has a headache most of the time - varies from a dull aching to sharp pain, starts in the morning after waking up and then improves when he is walking; takes 1000mg of Tylenol in the morning; no nausea/vomiting, photophobia or phonophobia - sialorrhea - worsening and bothersome Current Medications: Outpatient Medications Marked as Taking for the 01/24/23 encounter (Procedure visit) with Aida Zaragoza MD Medication Sig Dispense Refill ??? acetaminophen (TYLENOL) 500 mg tablet Take 1 Tablet by mouth every 6 hours as needed for Pain. ??? atropine 1 % ophthalmic solution Use 1-2 drops up to 3 times per day UNDER THE TONGUE as neededfor excessive salivation 5 mL 2 ??? carbidopa-levodopa (SINEMET) 25-100 mg per tablet Take 1 Tablet by mouth 2 times daily. ??? cholecalciferol, Vitamin D3, 1,000 unit tablet Take 5 Tablets by mouth daily. ??? cyanocobalamin (VITAMIN B-12) 500 mcg tablet Take 2 Tablets by mouth daily. ??? fludrocortisone (FLORINEF) 0.1 mg tablet Take 1 Tablet by mouth daily. ??? MAGNESIUM ORAL Take 1,000 mg by mouth. 2 500 MG TABS ??? MELATONIN ORAL Take 3 mg by mouth at bedtime. ??? OMEGA-3 330 MG-DHA AND EPA 300 MG-ALGAL OIL 600 MG CAPSULE 3,200 mg daily. ??? thiamine HCl (VITAMIN B-1 ORAL) Take by mouth. Allergies Allergen Reactions ??? Grass Pollen Hay Fever Past Medical History GERD HLD Sleep apnea - uses CPAP Hypotension Restless legs syndrome Parkinson disease Past Surgical History Right hip replacement Family History No neurological issues in the family. 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 OBJECTIVE Vital Signs Vitals: 01/24/23 0951 BP: (!) 158/92 BP Cuff Location: Left arm BP Patient Position: Sitting BP Cuff Sizes: Adult, regular Pulse: 76 Resp: 20 SpO2: 97% Vital signs were reviewed. Physical Examination Well-appearing, in no acute distress Pleasant and interactive Eyes without icterus or injection. Normocephalic, atraumatic head and neck. Alert appropriate and oriented Normal recall of recent and remote personal and medical history. Normal insight and judgment. Fluent clear speech, intact comprehensive and expressive language. Moderate hypophonia, no dysarthria. Face appears symmetric in the lower portion, but some drooping of the left eyelid (states this is chronic due to past Lyme disease). Decreased facial spontaneity/animation - lips parted for some of the time Rare rest tremor in the left foot and left hand, intermittent today. While writing, he has a slighttremor in the right hand. Slight decreased in spontaneous movements in the upper extremities Repetitive movements show slight decrease in speed and amplitude on the right > left. He is able to rise from a seated position without difficulty. Casual gait shows decreased stride length, clearance, and speed - but not magnetic. He is not wide-based. En bloc turning is noted. Decreased arm swing bilaterally. DATA No new data to review. Previous imaging: MRI HEAD (03/2022): No formal report available, but in my review, he does not have enlargement of the lateral ventricles out of proportion to atrophy that would be suggestive of NPH. He has very mild, non-specific white matter changes that likely represent sequelae of microvascular disease. NM MARCELO SPECT (07/18/2021): Abnormal study. Right caudate: Reduced uptake ?? Right putamen: Reduced uptake Left caudate: Reduced uptake ?? Left putamen: Reduced uptake ??Quantitative Findings: ?? * Z-score Striatum: Right -3.31 Left -2.93 * Z-score Putamen: Right -3.17 Left -3.21 * Z-score Anterior Putamen: Right -3.30 Left -3.17 * Z-score Posterior Putamen: Right -2.48 Left -2.92 * Z-score Caudate: Right -3.22 Left -2.12 EMG/NCS (05/2021): This is an abnormal study. There is electrodiagnostic evidence of: 1. 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 Remainder the needle exam in the right upper extremity was normal. 2. 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 3. 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 MRI CERVICAL SPINE (07/05/2020): Multilevel neuroforaminal narrowing due to uncovertebral spurring and facet arthropathy, moderate at C3-4 bilaterally and at C4-5 on the right. PROCEDURE The nature of the procedure, potential procedural and therapy-related risks and side effects were reviewed with the patient/responsible constitution party. A pre-procedure verification was conducted prior to the procedure. The patient???s identity, procedure, and when applicable the side/site, patient position,availability of implants and any special equipment or special requirements was verbally confirmed prior to the procedure. Informed consent was obtained on 01/24/2023 after discussing potential benefits, alternative treatments, consequences of no treatment, side effects and complications including but not limited to riskof: Face / head injection risks - injection site hematoma or bruising, local trauma to blood vessels ornerves, rash, pain, drooping of eyelids, doubling of vision, tearing abnormalities, asymmetry of face/crooked smile, headache, dry mouth, difficulty chewing General risks - injection site hematoma or bruising, local trauma to blood vessels or nerves, rash,pain Systemic effects - fever, nausea generalized weakness, swallowing dysfunction, and respiratory suppression/weakness. 100 units of incobotulinumtoxinA (Xeomin??) was diluted with normal saline and injected using a 30 gauge EMG needle. Final dilution 1 ml per 100 unit vial. Botulinum toxin injections: Side Muscle Sites Concentration (units / ml) Volume per site (cc) Total Units R Parotid 2 100 / 1 mL 0.15 30 L Parotid 2 100 / 1 mL 0.15 30 R Submandibular 1 100 / 1 mL 0.20 20 L Submandibular 1 100 / 1 mL 0.20 20 TOTAL USED 100 UNITS WASTED 0 Vial 1: Xeomin 100 unit vial [[facility] [id number]] Lot #: [id number] Exp: 09/2024 The patient tolerated the procedure well. There were no immediate complications. In addition to performing injections, I spent a total of 20 minutes on the date of this encounter meeting with the patient and reviewing documentation/coordinating care as described in the above note. Time dedicated to this visit was spent on the following activities: Patient/palliative care nurse practitioner education Review of the pertinent information in the electronic health record Care plan formulation Supportive counseling Scanned health information available from the referring and/or primary provider(s) Aida Lackey MD Attending Physician, Movement Disorders Department of Neurology documented in this encounter Plan of Treatment Upcoming Encounters Date Type Department Care Team (Late st Contact Info) Description 12/05/2023 13:30 EDT Telemedicine [facility] Neurology [address] [phone] Aida Zaragoza MD [address] [place] [phone] 01/15/2024 9:30 EDT Procedure visit [facility] Neurology [address] [id number] Aida Zaragoza MD [address] [place] [phone] 01/27/2024 8:15 EDT Telemedicine [facility] Neurology [address] [phone] Nickie Zaragoza NP [address] [place] [phone] 04/22/2024 8:30 EST Procedure visit [facility] Neurology [address] [id number] Aida Zaragoza MD [address] [place] [phone] 07/23/2024 8:30 EDT Procedure visit [facility] Neurology S [address] [phone] Aida Zaragoza MD [address] [place] [phone] documented as of this encounter Visit Diagnoses Diagnosis Parkinson's disease without dyskinesia or fluctuating manifestations (HCC-CMS)- Primary Sialorrhea Disturbance of salivary secretion Other fatigue Restless legs syndrome (RLS) documented in this encounter Historical Medications * This list may reflect changes made after this encounter. Medication Sig Dispensed Refills Start Date End Date carbidopa-levodopa (SINEMET) 25-100 mg per tablet Take 1 Tablet by mouth 2 times daily. 10/09/2022 added in this encounter Care Teams Family Readiness Support Assistant Relationship Specialty Start Date End Date Bernardo Nichols MD [address] [place] [address] PCP - General 06/10/17 documented as of this encounter
--- OUTSIDE RECORDS SUMMARY | 2023-11-13 12:56 | XMS_ITS | Encounter Summary ---
Author Organization [facility] Address [address] [place] [address] Care Team Providers Care Grounds Cleaner Name Role Phone Bernardo Nichols MD Primary Care Provider [phone] Reason for Referral * Prior Authorization (Routine/Next Available) - Authorization Not Required Specialty Diagnoses / Procedures Referred By Contac t Referred To Contact Neurology Diagnoses Focal dystonia Jaw dyskinesia Sialorrhea Procedures LA CHEMODENERV PAROTID&SUBMANDIBL SALIVARY GLNDS LA INCOBOTULINUMTOXIN A Aida Zaragoza MD [address] [place] [phone] Aida Zaragoza MD [address] [place] [phone] Referral ID Status Reason Start Date Expiration Date Visits Requested Visits Authorized [id number] Authorization Not Required Medication Prior Authorization 08/04/19 24 08/03/2024 4 4 Question Answer What is the medication to be prior authorized? Xeomin (J0588) What is the medication dose? up to 100 units What is the medication frequency? q12 weeks Additional notes for scheduling/prior authorization staff: EMG-guided Comments The purpose of this request is to inform precertification staff that the requested service needs to be reviewed for prior-authorization. This is in addition to Xeomin for sialorrhea Reason for Visit * Reason Comments Follow-up Procedure * Medication Prior Authorization (Routine/Next Available) - Closed Specialty Diagnoses / Procedures Referred By Contac t Referred To Contact Neurology Diagnoses Sialorrhea Procedures LA INCOBOTULINUMTOXIN A LA CHEMODENERV PAROTID&SUBMANDIBL SALIVARY GLNDS LA OFFICE/OUTPATIENT ESTABLISHED HIGH MDM 40 MIN Tramaine Mejia MD [address] [place] [phone] Tramaine Mejia MD [address] [place] [phone] Referral ID Status Reason Start Date Expiration Date Visits Requested Visits Authorized [id number] Closed Medication Prior Authorization 04/19/2023 04/19/2024 4 4 Encounter Details Date Type Department Care Team (Latest Contact Info) Description 07/24/2023 14:00 EDT Procedure visit [facility] Neurology - [address] [place] [phone] Aida Zaragoza MD [address] [place] [phone] Focal dystonia (Primary Dx); Parkinson's disease without dyskinesia or fluctuating manifestations (HCC-CMS); Jaw dyskinesia; Sialorrhea; Restless legs syndrome (RLS) Social History Tobacco Use Types Packs/Day Years Used Date Smoking Tobacco: Former Cigarettes 2 10 1 960 - 1970 Smokeless Tobacco: Never Tobacco Cessation:Counseling Given: Not [...] * Patient Instructions* Aida Zaragoza MD - 07/24/2023 14:00 EDT - I repeated the injections for drooling today - increased the dose by 50% to see if that helps with drooling. Only side effect to watch out for is dry mouth if the dose is too high - increase your carbidopa-levodopa like we discussed: - for 2 weeks, increase to 3 times daily - try to take before mealtime to space out through the day - if going okay and mobility seems better (including tremor, stiffness, shuffling), then increase to 1.5 tablets with each dose - if any issues, particularly if you think the jaw movement is worse, let me know and we can decrease the dose - I will ask insurance to cover extra botulinum toxin to inject the muscle in the jaw pushing it outward (focal jaw dystonia) documented in this encounter Progress Notes * Aida Zaragoza MD - 07/24/2023 1400 EDT Images from the original note were not included. Type of visit: Follow-up visit Clinician Requesting Consultation: Aida Zaragoza MD [address] [place] [address], [address] [place] [address] Primary Benefits Specialist Recruiter: Bernardo Minaya [facility] [id number] ASSESSMENT & PLAN / RECOMMENDATIONS 1. Focal dystonia AMB CONS/FOLLOW UP CLINIC ADMIN MED PRIOR AUTHORIZATION REQUEST 2. Parkinson's disease without dyskinesia or fluctuating manifestations ([facility]-CMS) 3. Jaw dyskinesia AMB CONS/FOLLOW UP CLINIC ADMIN MED PRIOR AUTHORIZATION REQUEST 4. Sialorrhea 5. Restless legs syndrome (RLS) Jim Gonzalez is a 77 y.o. gentleman who returns to the [facility] Movement Disorders clinic for evaluation and management of parkinsonism and other neurological symptoms. He was first evaluated for potential parkinsonism in 2019 via Telehealth, and started on carbidopa-levodopa at a subsequent visit in early 2020. It is unclear if the medication has been helpful to date, however dosehas been limited due to possible side effects. -- PARKINSON DISEASE: at least 4 years of asymmetric right hemibody parkinsonism that appears most consistent with idiopathic PD, though the lack of clear benefit with levodopa (up to 600mg) and selegiline is somewhat concerning. There are no clear signs of an atypical disorder, though he does havesome hypometric saccades and decreased excursions when gazing upward. No other features that would be concerning for PSP or any other parkinsonian disorder at this time. We agreed to try an increase in levodopa today, though will need to monitor closely to make sure jaw movements do not worsen. Since they are still occurring even at the low dose, will request insurance authorization for Xeomin toinject for focal dystonia at the same time as sialorrhea. 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 Reviewed non-medication treatment strategies to employ during the daytime in addition to Xeomin injections. He did not appreciate a sustained improvement with the last injections, so will repeat today with a 50%increase in dosage. - Xeomin injections performed today for sialorrhea, can repeat q12 weeks - atropine drops provided for sublingual use -- RESTLESS LEGS SYNDROME: increased risk given parkinsonism, but symptoms have remained stable with the current dosage of medication. - continue with gabapentin 300mg at bedtime Return to clinic: 1 month via Telehealth, then 3 months on-site SUBJECTIVE Reason for consultation/ Chief complaint: Parkinson disease History of Presenting Illness (HPI): Jim Gonzalez is a 77 y.o. gentleman who was referred to the [facility] Movement Disorders clinic for evaluation and management [...] - started on gabapentin. Interval history: He had an episode of lightheadness in late May and went to the ED - was diagnosed with atrial fibrillation. He is now on anticoagulation. He has been monitoring his heart rate / rhythm with his apple watch and it has been sinus rhythm. Also denies any further episodes. Blood p ressure is all over the place - not consistently high or low. He was on fludrocortisone but this was stopped in March. He has been walking outside now that the weather is nicer. Feels that his balance is pretty good. No falls since the last visit. Continues to have frequent headaches, which do not sound migrainous in nature. He has an appointment in the Headache clinic scheduled for the summer. Last injections: Date: 04/19/2023 [Dr Mejia] Benefit: Unclear improvement Side effects: Denies ROS: A comprehensive [...] to fluctuate - no pattern to it; fludrocortisone was d/c'ed in March 2023 - dizziness - was postural, now improved [...] Outpatient Medications Marked as Taking for the 07/24/23 encounter (Procedure visit) with Aida Zaragoza MD Medication Sig Dispense Refill apixaban (ELIQUIS) 5 mg tablet Take 1 Tablet by mouth 2 times daily. carbidopa-levodopa (SINEMET) 25-100 mg per tablet Take 1 Tablet by mouth 2 times daily. cholecalciferol, Vitamin D3, 1,000 unit tablet Take 5 Tablets by mouth daily. cyanocobalamin (VITAMIN B-12) 500 mcg tablet Take 2 Tablets by mouth daily. OMEGA-3 330 MG-DHA AND EPA 300 MG-ALGAL OIL 600 MG CAPSULE 3,200 mg daily. selegiline (ELDEPRYL) 5 mg tablet Take 1 Tablet by mouth 2 times daily. 180 Tablet 3 thiamine HCl (VITAMIN B-1 ORAL) Take by mouth. vibegron (GEMTESA) 75 mg tablet Take 1 Tablet by mouth daily. Allergies Allergen Reactions Grass Pollen Hay Fever Past Medical History GERD HLD Sleep apnea - uses CPAP Hypotension Restless legs syndrome Parkinson disease Atrial fibrillation Past Surgical History Right hip replacement Family History No neurological issues in the family. 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 OBJECTIVE Vital Signs There were no vitals filed for this visit. Physical Examination Well-appearing, in no acute distress [...] (07/18/2021): Abnormal study. Right caudate: Reduced uptake Right putamen: Reduced uptake Left caudate: Reduced uptake Left putamen: Reduced uptake Quantitative Findings: * Z-score Striatum: Right -3.31 Left -2.93 [...] side effects were reviewed with the patient/responsible democrat. A pre-procedure verification was conducted prior to the procedure. The patient???s identity, procedure, and when applicable the side/site, patient position,availability of implants and any special equipment or special requirements was verbally confirmed prior to the procedure. Informed consent was obtained on 07/24/2023 after discussing potential benefits, alternative treatments, consequences of no treatment, side effects and complications including but not limited to risk of: Face / head injection risks - injection [...] R Parotid 2 100 / 1 mL 0.25 50 L Parotid 2 100 / 1 mL 0.25 50 R Submandibular 1 100 / 1 mL 0.25 25 L Submandibular 1 100 / 1 mL 0.25 25 TOTAL USED 150 UNITS WASTED 0 Vial 1: Xeomin 100 unit vial [[facility] 9369-8262-40] Lot #: [id number] Exp: 03/2025 Vial 2: Xeomin 50 unit vial [[facility] 4699-8748-04] Lot #: [id number] Exp: 01/2025 The patient tolerated the procedure well. There were no immediate complications. In addition to performing injections, I spent a total of 20 minutes on the date of this encounter meeting with the patient and reviewing documentation/coordinating care as described in the above note. Time dedicated to this visit was spent on the following activities: Patient/special needs caregiver education Review of the pertinent information in the electronic health record Care plan formulation Supportive counseling Scanned health information available from the referring and/or primary provider(s) Aida Lackey MD Attending Physician, Movement Disorders Department of Neurology documented in this encounter Plan of Treatment Upcoming Encounters Date Type Department Care Team (Late st Contact Info) Description 12/05/2023 13:30 EDT Telemedicine [facility] Neurology [address] [id number] Aida Zaragoza MD [address] [place] [phone] 01/15/2024 9:30 EDT Procedure visit [address] [phone] Aida Zaragoza MD [address] [place] [phone] 01/27/2024 8:15 EDT Telemedicine [facility] Neurology - S [address] [phone] Nickie Zaragoza NP [address] [phone] 04/22/2024 8:30 EST Procedure visit [address] [phone] Aida Zaragoza MD [address] [place] [phone] 07/23/2024 8:30 EDT Procedure visit [address] [id number] Aida Zaragoza MD [address] [place] [phone] Scheduled Referrals Name Type Priority Associated Diagnoses Order Schedule AMB CONS/FOLLOW UP CLINIC ADMIN MED PRIOR AUTHORIZATION REQUEST Outpatient Referral Routine/Next Available Focal dystonia Jaw dyskinesia Expected: 09/03/2023 (Approximate), Expires: 08/03/2024 documented as of this encounter Visit Diagnoses Diagnosis Focal dystonia- Primary Other extrapyramidal disease and abnormal movement disorder Parkinson's disease without dyskinesia or fluctuating manifestations ([facility]-CMS) Jaw dyskinesia Orofacial dyskinesia Sialorrhea Disturbance of salivary secretion Restless legs syndrome (RLS) documented in this encounter Historical Medications * This list may reflect changes made after this encounter. Medication Sig Dispensed Refills Start Date End Date apixaban (ELIQUIS) 5 mg tablet Take 1 Tablet by mouth 2 times daily. added in this encounter Care Teams Grounds Cleaner Relationship Specialty Start Date End Date Bernardo Nichols MD [address] [place] [address] PCP - General 06/10/17 documented as of this encounter
--- OUTSIDE RECORDS SUMMARY | 2023-11-13 12:56 | XMS_ITS | Encounter Summary ---
Author Organization [facility] Address [address] [place] [address] Care Team Providers Care Laboratory Helper Name Role Phone Bernardo Nichols MD Primary Care Provider [phone] Reason for Visit * Reason Onset Date Comments New/Evolving Symptoms 06/04/2023 Medication Management 06/04/2023 Encounter Details Date Type Department Care Team (Late st Contact Info) Description 06/04/2023 Telephone [facility] Neurology - [address] [place] [address] [place] [phone] Aida Zaragoza MD [address] [place] [address] [address] [place] [phone] New/Evolving Symptoms; Medication Management Social History Tobacco Use Types Packs/Day Years [...] encounter Miscellaneous Notes * Telephone Encounter - Nickie Zaragoza NP - 06/13/2023 1401 EST 60 oz fluid is good. If he has no h/o heart failure, he can liberalize his salt intake. Still recommend compression stockings and await b/p readings. * Telephone Encounter - Lesa Smith RN - 06/12/2023 1337 EST Spoke with Jim and he states that his lightheadedness has improved over the past few days. Jim states that he did not have any blood pressure readings at this time. He also states that he hasnot been wearing compression stockings advised per MEAGAN Beltre that wearing them in the day and taking them off at night would be helpful and also that he should decrease his fluid intake to around 64 ozs instead of the 90 ozs. Jim states that he has been drinking around 60 ozs. Now and in regards to his salt intake he has not been using a lot of salt. I let him know the message would be sent back to MEAGAN Beltre and if there was any additional information we would let him know. Jim verbalized understanding. * Telephone Encounter - Nickie Zaragoza NP - 06/07/2023 1334 EST Await seated and standing b/p readings. If he is not wearing compression stockings, plese recommend he do so. On in the morning and off at hs. 96 oz is a lot. We would be happy with 64 oz! How is salt intake? * Telephone Encounter - Aida Carpenter RN - 06/05/2023 1304 EST Symptom Change / Status Update Informant: Power Symptom update: Lightheaded every time he stands last few days, better today. BP is taken seated after resting 5 minutes and he has not rechecked after standing for a minute -previous notes indicate instructed in ortho VS and this was reinforced again today BP readings this morning 121/71. 94/59, 110/59 Slight increase in hand tremor which he cannot associate with specific time or in relation to medication dosing Interval changes in health status or other medications: Didn't drink as much as usual yesterday - maybe 45 oz. Drinking more today but states he cannot drink 96 oz - that is just too much for him Epic medication list reconciled yes Medication change: Florinef discontinued 04/19/2023 Last encounter review/summary (relevant assessment/plan and patient instructions): Per procedure note Dr. Mejia 04/19/23: Postural lightheadedness/neurogenic hypotension: Prior documented postural lightheadedness and hypotension. Recent discontinuation of fludrocortisone given. Persistent normotensive to hypertensive measurements on postural vital signs. Now with discontinuation of f ludrocortisone recommendation for return back to evaluate postural vital signs despite absence of ongoing postural lightheadedness or other symptoms suggestive of neurogenic hypotension. Recommendations / Actions: Check ortho VS as instructed and keep log Encouraged to drink more fluids than 45 oz daily, at least his usually 55 oz or more if he is able Neurology provider review requested AIDA CARPENTER RN 06/05/2023 13:04 * Telephone Encounter - Mariana Simpson - 06/05/2023 1158 EST Power was calling back this morning in regards to a message that he received from the nurse. I reached out to the nurse but she was not available. I told Power that I would have the nurse call him back. Thank you * Telephone Encounter - Vanesa Ruelas RN - 06/05/2023 1042 EST Rtc to saul Steve on identified line requesting he rtc to this office * Telephone Encounter - Mariana Simpson - 06/05/2023 0951 EST Power was calling back this morning looking to speak with the nurse. I reached out to the nurse but she was not available. I told Power that I would have the nurse call him back as soon as possible. Thank you * Telephone Encounter - Aleah Salvador RN - 06/04/2023 1516 EST Spoke with Power, he was not able to talk at the time of the phone call, and will call back when he is able. * Telephone Encounter - Bhanu Jaimes - 06/04/2023 1312 EST Pt wants to report that he has been having worsening symptoms, and he is wondering if it is worth making a med change or increase to the. carbidopa-levodopa (SINEMET) 25-100 mg per tablet Taking as prescribed along with SELEGILINE. Pt reports that he feels like his BP might be falling off he is getting readings like 129/63 and 112/65 but then 101/70 all within half an hour and he feels light headed and feels like fainting and is having a continuous headache, all symptoms are withing the last several days. Pt would like a call to discuss. documented in this encounter Plan of Treatment Upcoming Encounters Date Type Department Care Team (Late st Contact Info) Description 12/05/2023 13:30 EDT Telemedicine [facility] Neurology - S [address] [address] Aida Zaragoza MD [address] [place] [phone] 01/15/2024 9:30 EDT Procedure visit [facility] Neurology S [address] [address] Aida Zaragoza MD [address] [place] [phone] 01/27/2024 8:15 EDT Telemedicine [address] [phone] Nickie Zaragoza NP [address] [place] [phone] 04/22/2024 8:30 EST Procedure visit [address] [address] Aida Zaragoza MD [address] [place] [phone] 07/23/2024 8:30 EDT Procedure visit [address] [phone] Aida Zaragoza MD [address] [place] [address] [phone] documented as of this encounter Visit Diagnoses Not on filedocumented in this encounter Care Teams Laboratory Helper Relationship Specialty Start Date End Date Bernardo Nichols MD [address] [place] [address] PCP - General 06/10/17 documented as of this encounter
--- OUTSIDE RECORDS SUMMARY | 2023-11-13 12:56 | XMS_ITS | Encounter Summary ---
Author Organization [facility] Address [address] [place] [address] Care Team Providers Care Vp Treasurer Name Role Phone Bernardo Nichols MD Primary Care Provider [phone] Reason for Visit * Reason Onset Date Comments Appointment Related 05/24/2023 Encounter Details Date Type Department Care Team (Late st Contact Info) Description 05/24/2023 Telephone [facility] Neurology - S [address] [phone] Hannah Escamilla MD [address] [place] [address] [address] [place] [phone] Appointment Related Social History Tobacco Use Types Packs/Day Years [...] encounter Miscellaneous Notes * Telephone Encounter - Rhett Britt - 05/24/2023 1458 EST Power called and scheduled MyChart Televideo NPV with Dr Escamilla 10/31/23 at 8:00am Added to wait list Assigned referral documented in this encounter Plan of Treatment Upcoming Encounters Date Type Department Care Team (Late st Contact Info) Description 12/05/2023 13:30 EDT Telemedicine [facility] Neurology S [address] [phone] Aida Zaragoza MD [address] [place] [phone] 01/15/2024 9:30 EDT Procedure visit [address] [phone] Aida Zaragoza MD [address] [place] [address] [phone] 01/27/2024 8:15 EDT Telemedicine [facility] Neurology [address] [phone] Nickie Zaragoza NP [address] [place] [address] [phone] 04/22/2024 8:30 EST Procedure visit [facility] Neurology S [address] [phone] Aida Zaragoza MD [address] [place] [phone] 07/23/2024 8:30 EDT Procedure visit [facility] Neurology [address] [phone] Aida Zaragoza MD [address] [place] [address] [phone] documented as of this encounter Visit Diagnoses Not on filedocumented in this encounter Care Teams Vp Treasurer Relationship Specialty Start Date End Date Bernardo Nichols MD [address] [place] [address] PCP - General 06/10/17 documented as of this encounter
--- OUTSIDE RECORDS SUMMARY | 2023-11-13 12:56 | XMS_ITS | Encounter Summary ---
Author Organization [facility] Address [address] [place] [address] Care Team Providers Care Mechanic Sound Technician Name Role Phone Bernardo Nichols MD Primary Care Provider [phone] Reason for Visit * Reason Onset Date Comments Medication Questions 01/31/2023 Encounter Details Date Type Department Care Team ([facility] st Contact Info) Description 01/31/2023 Telephone [facility] - S [address] [id number] Aida Zaragoza MD [address] [place] [address] Level 2 [place] [address] Medication Questions Social History Tobacco Use Types Packs/Day Years [...] encounter Miscellaneous Notes * Telephone Encounter - Darcy Mcmillan RN - 03/08/2023 1004 EST Note below moved to encounter 02/[address] Lackey * Telephone Encounter - Darcy Mcmillan RN - 03/08/2023 0939 EST Please see a nurse has reached out to patient about concerns in TE dated 02/25/23 which updates andsupersedes information in this encounter Phone call to patient to check in He reports mostly having on and off AMEZCUA with feeling foggy - some c/o lightheadedness but when he take his BP it's been up (160/80-90's) He is taking tyl and aleve for AMEZCUA with some effect Routing to Dr Darya Zaragoza for review and any recommendations * Telephone Encounter - Teo Allen - 02/18/2023 1400 EST Power calling again asking to speak with nurse rDummond regarding his medications. Nurse Drummond not available on Teams. Please reach out to advise. * Telephone Encounter - Mariana Simpson - 02/13/2023 1608 EDT Power was calling back this afternoon in regards to a message that he received from the nurse. I reached out to the nurse but he was not available but would call Power back tomorrow. I let Power know. Thank you * Telephone Encounter - Peyton Yañez RN - 02/13/2023 1033 EDT lmtcb * Telephone Encounter - Peyton Yañez RN - 02/13/2023 1029 EDT Routing note from Dr. Lackey 02/11: These messages are a bit confusing because I thought he was describing new symptoms related to the change in medication, but then he more recently said headaches are not any worse. Why was he mentioning it then? I would still like to adjust the medications to try and help his PD motor symptoms - he felt that the jaw tightness was occurring even with low doses of levodopa, possibly a dyskinesia - so that's why we switched to Rytary. I also wanted him to take the selegiline in combination with either Sinemetor Rytary - but if he doesn't want to take it, he can stop it. We can put in a referral to the headache clinic for the ongoing issue with headaches. He had not reported these at the last visit so I thought they were better, but if not, that is probably the next best step. * Telephone Encounter - Peyton Yañez RN - 02/06/2023 1050 EDT Symptom Change / Status Update Informant: Power Gonzalez (patient) Symptom update: Patient stated he has had headaches for years. Typical pattern is they get worse for a few days 4-7/10 pain and then gets better for a few days 2-3/10 pain. Headache is always present to some degree. Does not think there has been an impact on headaches from medication changes. Interval changes in health status or other medications: None Epic medication list reconciled no Medication change: Current medication regimen: Carbidopa/Levodopa 1 tablet 2x/day Selegiline 1 5 mg tablet 2x/day Last encounter review/summary (relevant assessment/plan and patient instructions): Dr. Lackey would like you to stop the Rytary and switch back to the Sinemet and Selegiline: both medications 1 tablet 2 times per day. Recommendations / Actions: Will forward to Dr. Lackey to advise Neurology provider review requested PEYTON YAÑEZ RN 02/06/2023 10:50 * Telephone Encounter - Bharati Wadsworth RN - 02/01/2023 1119 EDT Images from the original note were not included. Aida Zaragoza MD Neuro Move Marriage Counselor 1 hour ago (10:05) Okay, to start we should have him switch back to the Sinemet + selegiline: both 1 tablet 2 times per day, instead of the Rytary. See how he feels with that combination to start. Then we can decide about switching to Rytary. We had stopped the Sinemet because he felt that it was not helping and it was causing the issue in his jaw, but it sounds like perhaps it was making a difference. CORDELL TC to patient - [facility] for return call. [employer] message sent. * Telephone Encounter - Peyton Yañez RN - 01/31/2023 1532 EDT Medication Adjustment Update Informant: Power Carlos Medication change: Stopped taking CL IR and started taking Rytary and Selegiline Has been taking medication for 2.5 days. Was not taking any medication for 2 days prior, told to immediately stop CL at visit. Last encounter review/summary (relevant assessment/plan and patient instructions): - restart selegiline 5mg tablets: 1 tablet daily x 1 week, then 1 tablet twice daily thereafter - stop carbidopa-levodopa 25/100mg tablets, and start Rytary capsules: ordered 95mg capsules - 2 capsules TID to start - encouraged exercise and physical activity as much as tolerated Symptom update: Symptoms are worse: AMEZCUA, mental fogginess, fatigue in legs, softer voice. New symptoms: stuttering Interval changes in health status or other medications: N/A Epic medication list reconciled No Recommendations / Actions: Would like to know if change in symptoms is due to new medication schedule. PEYTON YAÑEZ RN 01/31/2023 15:32 * Telephone Encounter - Riley Smith - 01/31/2023 1502 EDT Jim calls back to speak with Peyton. Unavailable for transfer. * Telephone Encounter - Peyton Yañez RN - 01/31/2023 1429 EDT lmtcb * Telephone Encounter - Mariana Simpson - 01/31/2023 1317 EDT Power was calling in this afternoon with a few questions on the new medication that Dr. Lackey had put him on last week. The medications are for, selegiline (ELDEPRYL) 5 mg tablet and carbidopa-levodopa (RYTARY) 23.75-95 mg ER capsule. Please call to advise. Thank you documented in this encounter Plan of Treatment Upcoming Encounters Date Type Department Care Team (Late st Contact Info) Description 12/05/2023 13:30 EDT [facility] S [address] [id number] Aida Zaragoza MD [address] [place] [address] [phone] 01/15/2024 9:30 EDT Procedure [facility] S [address] [id number] Aida Zaragoza MD [address] [place] [address] [phone] 01/27/2024 8:15 EDT [facility] S [address] [phone] Nickie Zaragoza NP [address] [phone] 04/22/2024 8:30 EST Procedure visit [address] [phone] Aida Zaragoza MD [address] [place] [address] [phone] 07/23/2024 8:30 EDT Procedure visit [address] [id number] Aida Zaragoza MD [address] [place] [phone] documented as of this encounter Visit Diagnoses Not on filedocumented in this encounter Care Teams Mechanic Sound Technician Relationship Specialty Start Date End Date Bernardo Nichols MD [address] [place] [address] PCP - General 06/10/17 documented as of this encounter
--- OUTSIDE RECORDS SUMMARY | 2023-11-13 12:56 | XMS_ITS | Encounter Summary ---
Author Organization [facility] Address [address] [place] [address] Care Team Providers Care Internal Wholesaler Name Role Phone Bernardo Nichols MD Primary Care Provider [phone] Reason for Visit * Reason Onset Date Comments Appointment Related 09/06/2023 Encounter Details Date Type Department Care Team (Late st Contact Info) Description 09/06/2023 Telephone [facility] Neurology - S [address] [id number] Aida Zaragoza MD [address] [place] [address] Level 2 [place] [phone] Appointment Related Social History Tobacco [...] encounter Miscellaneous Notes * Telephone Encounter - Mariana Simpson - 09/06/2023 0951 EDT Called and spoke with Jim and scheduled a one month follow up with Dr. Lackey through video on September at 1:00 pm. Thank you documented in this encounter Plan of Treatment Upcoming Encounters Date Type Department Care Team (Late st Contact Info) Description 12/05/2023 13:30 EDT Telemedicine [facility] Neurology S [address] [phone] Aida Zaragoza MD [address] [place] [address] [phone] 01/15/2024 9:30 EDT Procedure visit [address] [id number] Aida Zaragoza MD [address] [place] [address] [phone] 01/27/2024 8:15 EDT Telemedicine [facility] [address] [phone] Nickie Zaragoza NP [address] [place] [address] [phone] 04/22/2024 8:30 EST Procedure visit [facility] S [address] 238251 Aida Zaragoza MD [address] [place] [phone] 07/23/2024 8:30 EDT Procedure visit [facility] S [address] [id number] Aida Zaragoza MD [address] [place] [address] [phone] documented as of this encounter Visit Diagnoses Not on filedocumented in this encounter Care Teams Internal Wholesaler Relationship Specialty Start Date End Date Bernardo Nichols MD [address] [place] [address] PCP - General 06/10/17 documented as of this encounter
--- OUTSIDE RECORDS SUMMARY | 2023-11-13 12:56 | XMS_ITS | Encounter Summary ---
Author Organization [facility] Address [address] [place] [address] Care Team Providers Care Graves Registration Specialist Name Role Phone Bernardo Nichols MD Primary Care Provider [phone] Reason for Visit * Reason Onset Date Comments Medication Management 01/28/2023 Encounter Details Date Type Department Care Team (Late st Contact Info) Description 01/28/2023 Telephone [facility] Neurology - S [address] [id number] Aida Zaragoza MD [address] [place] [address] Level 2 [place] [phone] Medication Management Social History Tobacco Use Types [...] encounter Miscellaneous Notes * Telephone Encounter - Jessy Escamilla MA - 01/28/2023 1524 EDT PA approved thru 01/28/2024 * Telephone Encounter - Jessy Escamilla MA - 01/28/2023 1524 EDT PA submitted for Rytary ER via [employer] * Telephone Encounter - Bhanu Jaimes - 01/28/2023 1207 EDT Pt calls in regarding the carbidopa-levodopa (RYTARY) 23.75-95 mg ER capsule I can see we sent it to pharmacy on 01/24/23, pt will call pharmacy and will call us back if necessary. documented in this encounter Plan of Treatment Upcoming Encounters Date Type Department Care Team (Late st Contact Info) Description 12/05/2023 13:30 EDT Telemedicine [facility] Neurology - S [address] [id number] Aida Zaragoza MD [address] [place] [address] Level 2 [place] [phone] 01/15/2024 9:30 EDT Procedure visit [facility] Neurology S [address] [id number] Aida Zaragoza MD [address] [phone] 01/27/2024 8:15 EDT Telemedicine [address] [phone] Nickie Zaragoza NP [address] [phone] 04/22/2024 8:30 EST Procedure visit [address] [phone] Aida Zaragoza MD [address] [place] [address] [phone] 07/23/2024 8:30 EDT Procedure visit [address] [id number] Aida Zaragoza MD [address] [place] [address] [phone] documented as of this encounter Visit Diagnoses Not on filedocumented in this encounter Care Teams Graves Registration Specialist Relationship Specialty Start Date End Date Bernardo Nichols MD [address] [place] [address] PCP - General 06/10/17 documented as of this encounter
--- OUTSIDE RECORDS SUMMARY | 2023-11-13 12:56 | XMS_ITS | Encounter Summary ---
Author Organization [facility] Address [address] [place] [address] Care Team Providers Care Leather Tooler Name Role Phone Bernardo Nichols MD Primary Care Provider [phone] Reason for Visit * Reason Onset Date Comments Medication Management 11/06/2023 Encounter Details Date Type Department Care Team (Late st Contact Info) Description 11/06/2023 Telephone [facility] Neurology - S [address] [phone] Hannah Escamilla MD [address] [place] [address] Level 2 [place] [phone] Medication Management Social History Tobacco Use Types [...] Telephone Encounter - Darcy Mcmillan RN - 11/08/[address] Escamilla: CGRP monoclonal antibody PA request signed. Apologies for the delay * Telephone Encounter - Darcy Mcmillan RN - 11/07/2023 1451 EDT Phone call to patient and detailed message left on identified voice mail to let him know we are still awaiting Dr Escamilla's response about treatment * Telephone Encounter - Bhanu Jaimes - 11/07/2023 1427 EDT Pt calls for same as below, wants to check the status of this encounter * Telephone Encounter - Darcy Mcmillan RN - 11/07/2023 0901 EDT LV note 10/31/23 is incomplete - referral not seen for CGRP injectable - routing to Dr Escamilla to advise * Telephone Encounter - Teo Allen - 11/06/2023 1500 EDT Jim said that during his 10/[address] Escamilla she said she would send an RX for an injectable headache medicine, patient doesn't remember name of med. He called his pharmacy and said they haven't received it yet. 10/30 note unsigned, can't see what medication they discussed to be more specific. Vahe asks to be called to discuss. documented in this encounter Plan of Treatment Upcoming Encounters Date Type Department Care Team (Late st Contact Info) Description 12/05/2023 13:30 EDT Telemedicine [facility] Neurology [address] [id number] Aida Zaragoza MD [address] [place] [address] [phone] 01/15/2024 9:30 EDT Procedure visit [address] 019491 Aida Zaragoza MD [address] [place] [address] [phone] 01/27/2024 8:15 EDT Telemedicine [address] 570761 Nickie Zaragoza NP [address] [place] [address] [phone] 04/22/2024 8:30 EST Procedure visit [address] [id number] Aida Zaragoza MD [address] [place] [address] [phone] 07/23/2024 8:30 EDT Procedure visit [address] 539711 Aida Zaragoza MD [address] [place] [address] [phone] documented as of this encounter Visit Diagnoses Not on filedocumented in this encounter Care Teams Leather Tooler Relationship Specialty Start Date End Date Bernardo Nichols MD [address] [place] [address] PCP - General 06/10/17 documented as of this encounter
--- OUTSIDE RECORDS SUMMARY | 2023-11-13 12:56 | XMS_ITS | Encounter Summary ---
Author Organization [facility] Address [address] [place] [address] Care Team Providers Care Meter Tester Name Role Phone Bernardo Nichols MD Primary Care Provider [phone] Reason for Referral * Consult (Routine/Next Available) - New Request Specialty Diagnoses / Procedures Referred By Nikhil t Referred To Contact Pharmacy Diagnoses Intractable chronic migraine without aura and without status migrainosus Hannah Escamilla MD [address] [place] [phone] [facility] [address] [place] [phone] Referral ID Status Reason Start Date Expiration Date Visits Requested Visits Authorized [id number] New Request Specialty Services Required 11/08/2023 1 1 Question Answer PA Type: New Medication to be Prior Authorized: CGRP monoclonal antibody Comments The purpose of this request is to inform precertification staff that the requested service needs to be reviewed for prior-authorization. Has failed gabapentin, propranolol, topamax Reason for Visit * Reason Comments New Patient Visit Telemedicine Video Visit * Referral (Routine/Next Available) - Authorization Not Required Specialty Diagnoses / Procedures Referred By Contac t Referred To Contact Neurology Diagnoses Intractable headache, unspecified chronicity pattern, unspecified headache type Tramaine Mejia MD [address] [place] [phone] Genoveva Piña DO 1 [facility], [facility] [address] [place] [address] Referral ID Status Reason Start Date Expiration Date Visits Requested Visits Authorized [id number] Authorization Not Required Specialty Services Required 04/19/2023 1 1 Encounter Details Date Type Department Care Team (Late st Contact Info) Description 10/31/2023 8:[address] [facility] Neurology - S [place] [address] [place], [place] [phone] Hannah Escamilla MD [address] [place] [address] 2 [place] [phone] Intractable chronic migraine without aura and without status migrainosus (Primary Dx) Social History Tobacco Use Types Packs/Day Years Used Date Smoking Tobacco: Former Cigarettes 2 10 0 1969 Smokeless Tobacco: Never Tobacco Cessation:Counseling Given: [...] No 01/18/2022 documented as of this encounter Ordered Prescriptions Prescription Sig Dispensed Refills Start Date End Da te SUMAtriptan (IMITREX) 25 mg tablet Take 1 Tablet by mouth daily as needed for Migraine. May take 2 if needed. May repeat dose after 2 hours, Limit 100 mg per 24 hours and 2 treatment days per week. 9 Tablet 3 10/31/2023 documented in this encounter Plan of Treatment Upcoming Encounters Date Type Department Care Team (Late st Contact Info) Description 12/05/2023 13:30 EDT Telemedicine [address] [id number] Aida Zaragoza MD [address] [place] [address] [phone] 01/15/2024 9:30 EDT Procedure visit [address] 900361 Aida Zaragoza MD [address] [place] [address] [phone] 01/27/2024 8:15 EDT Telemedicine [address] [phone] Nickie Zaragoza NP [address] [place] [address] [phone] 04/22/2024 8:30 EST Procedure visit [address] 612181 Aida Zaargoza MD [address] [place] [address] [phone] 07/23/2024 8:30 EDT Procedure visit [address] [address] Aida Zaragoza MD 1 [facility], Level [address] [place] [phone] Scheduled Referrals Name Type Priority Associated Diagnoses Order Schedule AMB CONS/FOLLOW UP SPECIALTY PHARMACY Outpatient Referral Routine/Next Available Intractable chronic migraine without aura and without status migrainosus Expected: 11/15/2023 (Approximate), Expires: 11/07/2024 documented as of this encounter Visit Diagnoses Diagnosis Intractable chronic migraine without aura and without status migrainosus- Primary Chronic migraine without aura, with intractable migraine, so stated, without mention of status migrainosus documented in this encounter Care Teams Meter Tester Relationship Specialty Start Date End Date Bernardo Nichols MD [address] [place] [address] PCP - General 06/10/17 documented as of this encounter
--- OUTSIDE RECORDS SUMMARY | 2023-11-13 12:56 | XMS_ITS | Encounter Summary ---
Author Organization [facility] Address [address] [place] [address] Care Team Providers Care Training And Development Director Name Role Phone Bernardo Nichols MD Primary Care Provider [phone] Reason for Visit * Reason Comments Telemedicine Video Visit Follow-up Encounter Details Date Type Department Care Team ([facility] Contact Info) Description 09/05/2023 16:00 EDT Telemedicine [facility] Neurology - [address] [id number] Aida Zaragoza MD [address] [place] [address] Level [address] [place] [phone] Parkinson's disease without dyskinesia or fluctuating manifestations (HCC-CMS) (Primary Dx); Focal dystonia; Jaw dyskinesia; Restless legs syndrome (RLS); Sialorrhea Social History Tobacco Use Types Packs/Day Years [...] No 01/18/2022 documented as of this encounter Progress Notes * Aida Zaragoza MD - 09/05/2023 1600 EDT Images from the original note were not included. Type of visit: Follow-up visit Clinician Requesting Consultation: No referring provider defined for this encounter. Phone: N/A Fax: Primary Hospice Bereavement Coordinator: Bernardo Minaya [facility] [address] ASSESSMENT & PLAN / RECOMMENDATIONS 1. Parkinson's disease without dyskinesia or fluctuating manifestations (HCC-CMS) 2. Focal dystonia 3. Jaw dyskinesia 4. Restless legs syndrome (RLS) 5. Sialorrhea Jim Gonzalez is a 77 y.o. gentleman who returns to the [facility] Movement Disorders clinic for evaluation and management of parkinsonism, concerning for idiopathic PD versus an atypicalparkinsonian disorder. He was first evaluated in the Movement Disorders clinic in 2021 Parkinson's,though was previously seen in the Neurology resident clinic for a number of other neurological symptoms (headaches, seizures) dating back to 2019. In 2020, he was started on carbidopa-levodopa but ithas never made a significant difference to his motor symptoms, and he has been prone to side effects at low doses preventing escalation beyond 600 mg. -- PARKINSON DISEASE: at least 4 years of asymmetric right hemibody parkinsonism that appears most consistent with idiopathic PD, though the lack of clear benefit with levodopa (up to 600mg) and selegiline is concerning for a possible atypical disorder. Aside from the lack of levodopa-responsiveness, there are no clear signs of an atypical parkinsonism, though he does appear to have hypometric saccades and decreased excursions when gazing upwards. At the last visit, I suggested we again try to increase levodopa to see if motor symptoms improve without worsening bothersome jaw dystonia (which could be either an on or off phenomenon) - unfortunately, he has not appreciated any difference a side from worsening of jaw pain. We discussed a plan to taper off of levodopa, and then will likelytaper off selegiline as well since neither have been clearly beneficial. In the meantime, I will look into authorization for botulinum toxin to treat focal dystonia of the jaw, which continues to be one of his most bothersome symptoms. 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 Reviewed non-medication treatment strategies to employ during the daytime in addition to Xeomin injections. He did not appreciate a sustained improvement with previus injections, so increased dosage by 50% last month - reports that this was helpful and he does not think the dose should be increased further next time. - Xeomin injections performed today for sialorrhea, can repeat q12 weeks - atropine drops provided for sublingual use -- RESTLESS LEGS SYNDROME: increased risk given parkinsonism, but symptoms have remained stable with the current dosage of medication. - continue with gabapentin 300mg at bedtime Return to clinic: 1 month via Telehealth, then 2 months on-site for botulinum toxin injections SUBJECTIVE Reason for consultation/ Chief complaint: Parkinson disease History of Presenting Illness (HPI): Jim Gonzalez is a 77 y.o. gentleman who was referred to the [facility] Movement Disorders clinic for evaluation [...] few months - started on gabapentin. Interval history (last visit 07/24/2023): At the last visit, we discussed a plan to increase levodopa since he continues to have bothersome motor symptoms among other things. He is taking 1.5 tablets TID - he hasn't noticed any improvement and over the last week he noticed more fatigue in the legs. He thinks the jaw movement got worse again - he states that it is really a problem because it hurts and affects his speech. 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 OBJECTIVE Vital Signs There were no vitals filed for this visit. Physical Examination Deferred today due to poor video connectivity. Speech is fluent without evidence of expressive or receptive aphasia. Mild hypophonia with decreased vocal prosody. Thought process is linear, appropriate to the conversation. DATA No new data to review. Previous [...] bilaterally and at C4-5 on the right. ATTESTATION The concept of ???Telemedicine?? has been described to the patient.? Patient has been informed of the anticipated benefits and possible risks.? Patient understands the information provided regardingtelemedicine, has had the opportunity to ask questions about this information, and all questions have been answered to patient???s satisfaction. Patient consents for the use of telemedicine in his/her medical care and authorizes the transmission of any relevant medical information to providers and their staff involved in patient???s medical or mental health care. Patient understands that they maybe responsible for copays, deductible or coinsurance for this service. I have reviewed the appropriateness of using video technology with the patient with regards to today's visit. The location of the patient : Home (where patient lives) The location of the provider: Office I spent a total of 20 minutes on the date of this encounter meeting with the patient and reviewing documentation/coordinating care as described in the above note. Time dedicated to this visit was spent on the following activities: Patient/director of home care hospice education Review of the pertinent information in the electronic health record Care plan formulation Supportive counseling Scanned health information available from the referring and/or primary provider(s) Aida Lackey MD Attending Physician, Movement Disorders Department of Neurology documented in this encounter Plan of Treatment Upcoming Encounters Date Type Department Care Team (Late st Contact Info) Description 12/05/2023 13:30 EDT Telemedicine [facility] Neurology [address] [phone] Aida Zaragoza MD [address] [place] [address] [phone] 01/15/2024 9:30 EDT Procedure visit [address] [phone] Aida Zaragoza MD [address] [place] [address] [phone] 01/27/2024 8:15 EDT Telemedicine [facility] Neurology [address] 701171 Nickie Zaragoza NP [address] [place] [address] [phone] 04/22/2024 8:30 EST Procedure visit [address] [phone] Aida Zaragoza MD [address] [place] [phone] 07/23/2024 8:30 EDT Procedure visit [facility] Neurology - [address] [place] [address] [place] [address] Aida Zaragoza MD 1 [facility], Level [address] [place] [phone] documented as of this encounter Visit Diagnoses Diagnosis Parkinson's disease without dyskinesia or fluctuating manifestations (HCC-CMS)- Primary 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
--- OUTSIDE RECORDS SUMMARY | 2023-11-13 12:56 | XMS_ITS | Referral Summary ---
Author Organization [facility] Address [address] [place] [address] Care Team Providers Care Drafter Electromechanical Name Role Phone Bernardo Nichols MD Primary Care Provider [phone] Encounters Date Type Department Care Team Description 11/12/[address] [phone] Hannah Escamilla MD Appointment Related 11/12/[address] [phone] Aida Zaragoza MD Medication Questions 11/08/[address] [phone] Aida Zaragoza MD New/Evolving Symptoms 11/07/2023 8:30 EDT Procedure visit [address] [phone] Aida Zaragoza MD 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 (HCC-CMS) (Primary Dx); Focal dystonia; Jaw dyskinesia; Sialorrhea; Restless legs syndrome (RLS) 11/06/[address] [phone] Hannah Escamilla MD Medication Management 10/31/2023 8:00 EDT Telemedicine [address] [phone] Hannah Escamilla MD Intractable chronic migraine without aura and without status migrainosus (Primary Dx) 10/16/2023 Telephone [facility] Neurology [address] [address] Aida Zaragoza MD New/Evolving Symptoms; Medication Management 10/08/2023 13:00 EDT Telemedicine [address] [address] Aida Zaragoza MD 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 (HCC-CMS) (Primary Dx); Jaw dyskinesia; Focal dystonia; Sialorrhea; Intractable headache, unspecified chronicity pattern, unspecified headache type 10/03/2023 Telephone [place] [phone] Aida Zaragoza MD Appointment Related 09/26/2023 Telephone [place] [phone] Aida Zaragoza MD Update 09/06/[address] [address] [phone] Aida Zaragoza MD Appointment Related 09/05/2023 16:00 EDT Telemedicine [address] [address] Aida Zaragoza MD Parkinson's disease without dyskinesia or fluctuating manifestations (HCC-CMS) (Primary Dx); Focal dystonia; Jaw dyskinesia; Restless legs syndrome (RLS); Sialorrhea 08/19/[address] [address] Aida Zaragoza MD Appointment Related from Last 3 Months Allergies Active Allergy Reactions Criticality Noted Date Comments Grass Pollen 11/08/2021 Hay Fever Medications Medication Sig Dispensed Refills Start Date End Date Status UNABLE TO FIND Med Name: 'Restless legs' PRN for restless legs Active MAGNESIUM ORAL Take 1,000 mg by mouth. 2 500 MG TABS Active cholecalciferol, Vitamin D3, 1,000 unit tablet Take 5 Tablets by mouth daily. Active OMEGA-3 330 MG-DHA AND EPA 300 MG-ALGAL OIL 600 MG CAPSULE 3,200 mg daily. A ctive acetaminophen (TYLENOL) 500 mg tablet Take 1 Tablet by mouth every 6 hours as needed for Pain. Active cyanocobalamin (VITAMIN B-12) 500 mcg tablet Take 1 Tablet by mouth daily. Active ketOROLAC (TORADOL) 10 mg tablet Take 1 Tablet by mouth as needed for Pain (do not take more than 2 tabs/week for headache pain>5/10). 14 Tablet 1 11/08/2021 Active Additional Information Patient not taking.Reported on 01/24/2023 ondansetron (ZOFRAN-ODT) 4 mg disintegrating tablet Take 1 Tablet by mouth every 8 hours as needed for Nausea. 21 Tablet 1 03/02/2022 Active Additional Information Patient not taking.Reported on 09/13/2022 PREDNISONE ORAL Take 30 mg by mouth daily. Active aspirin 81 mg capsule Take by mouth daily. Active vibegron (GEMTESA) 75 mg tablet Take 1 Tablet by mouth daily. Active thiamine HCl (VITAMIN B-1 ORAL) Take by mouth. Ac tive MELATONIN ORAL Take 3 mg by mouth at bedtime. Active atropine 1 % ophthalmic solution Use 1-2 drops up to 3 times per day UNDER THE TONGUE as needed for excessive salivation 5 mL 2 09/13/2022 Active Additional Information Patient not taking.Reported on 04/19/2023 carbidopa-levodopa (SINEMET) 25-100 mg per tablet Take 1 Tablet by mouth 2 times daily. 10/09/2022 Active selegiline (ELDEPRYL) 5 mg tablet Take 1 Tablet by mouth 2 times daily. 180 Tablet 3 01/24/2023 Active Additional Information Patient taking differently:5 mg oralDAILY, Reported on 10/08/2023 ZINC ORAL Take 11 mg by mouth daily. Active apixaban (ELIQUIS) 5 mg tablet Take 1 Tablet by mouth 2 times daily. Active amantadine HCL (SYMMETREL) 100 mg capsule Take 1 Capsule by mouth 2 times daily. 60 Capsule 3 10/08/2023 Active SUMAtriptan (IMITREX) 25 mg tablet Take 1 Tablet by mouth daily as needed for Migraine. May take 2 if needed. May repeat dose after 2 hours, Limit 100 mg per 24 hours and 2 treatment days per week. 9 Tablet 3 10/31/2023 Active Active Problems Problem Noted Date Diagnosed Date History of seizures 08/24/2021 Dysesthesia 04/18/2020 Social History Tobacco Use Types Packs/Day Years [...] 16:10 EDT Sexual Orientation Not on file Last Filed Vital Signs Vital Sign Reading Time Taken Comments Blood Pressure 158/92 01/24/2023 0951 EDT Pulse 76 01/24/2023 0951 EDT Temperature - - Respiratory Rate 20 01/24/2023 0951 EDT Oxygen Saturation 97% 01/24/2023 0951 EDT Inhaled Oxygen Concentration - - Weight 79.4 kg (175 lb) 04/25/2022 1559 EST Height 180.3 cm (5' 11) 01/18/2022 1259 EDT Body Mass Index 24.41 01/18/2022 1259 EDT Functional Status Functional Status Response Date of [...] concentrating, remembering, or making decisions? No 01/18/2022 Plan of Treatment Upcoming Encounters Date Type Department Care Team ([facility] st Contact Info) Description 12/05/2023 13:30 EDT Telemedicine [facility] Neurology [address] [phone] Aida Zaragoza MD [address] [place] [address] [phone] 01/15/2024 9:30 EDT Procedure visit [address] 192841 Aida Zaragoza MD [address] [place] [address] [phone] 01/27/2024 8:15 EDT Telemedicine [address] [phone] Nickie Zaragoza NP [address] [place] [address] [phone] 04/22/2024 8:30 EST Procedure visit [address] 745381 Aida Zaragoza MD [address] [place] [address] [phone] 07/23/2024 8:30 EDT Procedure visit [address] [phone] Aida Zaragoza MD [address] [place] [address] [phone] Medical Devices Implanted Type Area Hand Compositor Device Identifier Shelf Expiration Date Model / Serial / Lot Right Thr-Mr Safe Care Teams Drafter Electromechanical Relationship Specialty Start Date End Date Bernardo Nichols MD [address] [place] [address] PCP - General 06/10/17
--- OUTSIDE RECORDS SUMMARY | 2023-11-13 12:56 | XMS_ITS | Encounter Summary ---
Author Organization [facility] Address [address] [place] [address] Care Team Providers Care Cytotechnologist/Cytology Supervisor Name Role Phone Bernardo Nichols MD Primary Care Provider [phone] Reason for Visit * Reason Onset Date Comments Appointment Related 08/19/2023 Encounter Details Date Type Department Care Team (Late st Contact Info) Description 08/19/2023 Telephone [facility] Neurology - S [address] [phone] Aida Zaragoza MD [address] [place] [address] Level 2 [place] [phone] Appointment Related Social History Tobacco [...] encounter Miscellaneous Notes * Telephone Encounter - Darlene Wasserman - 08/19/2023 0827 EDT Patient called to reschedule appointment on 08/21 as they had a in the family. Appointment was rescheduled to 09/04 at 4pm via televideo with Dr. Zaragoza documented in this encounter Plan of Treatment Upcoming Encounters Date Type Department Care Team (Late st Contact Info) Description 12/05/2023 13:30 EDT Telemedicine [facility] Neurology S [address] [phone] Aida Zaragoza MD [address] [place] [address] [phone] 01/15/2024 9:30 EDT Procedure visit [facility] Neurology [address] [phone] Aida Zaragoza MD [address] [place] [address] [phone] 01/27/2024 8:15 EDT Telemedicine [facility] Neurology [address] [phone] Nickie Zaragoza NP [address] [place] [address] [phone] 04/22/2024 8:30 EST Procedure visit [facility] Neurology - S [address] [phone] Aida Zaragoza MD [address] [place] [address] [phone] 07/23/2024 8:30 EDT Procedure visit [facility] Neurology S [address] [phone] Aida Zaragoza MD [address] [place] [phone] documented as of this encounter Visit Diagnoses Not on filedocumented in this encounter Care Teams Cytotechnologist/Cytology Supervisor Relationship Specialty Start Date End Date Bernardo Nichols MD [address] [place] [address] PCP - General 06/10/17 documented as of this encounter
--- OUTSIDE RECORDS SUMMARY | 2023-11-13 12:56 | XMS_ITS | Encounter Summary ---
Author Organization [facility] Address [address] [place] [address] Care Team Providers Care Beta Tester Name Role Phone Bernardo Nichols MD Primary Care Provider [phone] Reason for Visit * Reason Onset Date Comments Medication Management 06/28/2023 Encounter Details Date Type Department Care Team (Late st Contact Info) Description 06/28/2023 Telephone [facility] Neurology - S [address] [phone] Aida Zaragoza MD [address] [place] [address] Level 2 [place] [phone] Medication Management Social History Tobacco Use Types [...] encounter Miscellaneous Notes * Telephone Encounter - Aleah Salvador, HALLE - 07/01/2023 1414 EDT Spoke with Jim, he reports that he has felt back to his baseline with no dizzy spells since after he called in late last week. He will call back if symptoms return. * Telephone Encounter - Bhanu Jaimes - 06/28/2023 1421 EDT Pt calls to say he has had several spells of diziness over the last few weeks, pt's PCP has startedthe pt on a new med ELOQUIS Pt was diagnosed today with atrial fibrillation. The new meds are supposed to help, PCP told the pt to call and update neurology. PCP is wondering if the pt might be seen sooner at neuro. When pt was at the ED last week they reduced the SELEGILINE to 1 tablet daily. Pt would like to discuss. documented in this encounter Plan of Treatment Upcoming Encounters Date Type Department Care Team (Late st Contact Info) Description 12/05/2023 13:30 EDT Telemedicine [facility] Neurology - S [address] [phone] Aida Zaragoza MD [address] [place] [address], Level 2 [place] [phone] 01/15/2024 9:30 EDT Procedure visit [facility] Neurology - S [address] [phone] Aida Zaragoza MD [address] [phone] 01/27/2024 8:15 EDT Telemedicine [address] 134131 Nickie Zaragoza NP [address] [phone] 04/22/2024 8:30 EST Procedure visit [address] 551711 Aida Zaragoza MD [address] [place] [address] [phone] 07/23/2024 8:30 EDT Procedure visit [address] 102231 Aida Zaragoza MD [address] [place] [address] [phone] documented as of this encounter Visit Diagnoses Not on filedocumented in this encounter Care Teams Beta Tester Relationship Specialty Start Date End Date Bernardo Nichols MD [address] [place] [address] PCP - General 06/10/17 documented as of this encounter
--- OUTSIDE RECORDS SUMMARY | 2023-11-13 12:56 | XMS_ITS | Encounter Summary ---
Author Organization [facility] Address [address] [place] [address] Care Team Providers Care Enterprise Sales Person Name Role Phone Bernardo Nichols MD Primary Care Provider [phone] Reason for Visit * Reason Onset Date Comments Appointment Related 11/12/2023 Encounter Details Date Type Department Care Team (Late st Contact Info) Description 11/12/[address] [facility] Neurology - S [address] [phone] Hannah Escamilla MD [address] [place] [address] Level 2 [place] [phone] Appointment Related Social History Tobacco [...] encounter Miscellaneous Notes * Telephone Encounter - Emani Hamm - 11/12/2023 1013 EDT Spoke to Jim to schedule FUR 60 via [employer] with Alexsander Zaragoza NP on 01/27/24 at 8:15 AM. documented in this encounter Plan of Treatment Upcoming Encounters Date Type Department Care Team (Late st Contact Info) Description 12/05/2023 13:[address] [facility] Neurology [address] [phone] Aida Zaragoza MD [address] [place] [address] [phone] 01/15/2024 9:30 EDT Procedure visit [address] [phone] Aida Zaragoza MD [address] [place] [address] [phone] 01/27/2024 8:15 EDT Telemedicine [address] [phone] Nickie Zaragoza NP [address] [place] [address] [phone] 04/22/2024 8:30 EST Procedure visit [facility] Neurology - S [address] 479941 Aida Zaragoza MD [address] [place] [phone] 07/23/2024 8:[address] [facility] Neurology S [address] [phone] Aida Zaragoza MD [address] [place] [address] [phone] documented as of this encounter Visit Diagnoses Not on filedocumented in this encounter Care Teams Enterprise Sales Person Relationship Specialty Start Date End Date Bernardo Nichols MD [address] [place] [address] PCP - General 06/10/17 documented as of this encounter
--- OUTSIDE RECORDS SUMMARY | 2023-11-13 12:56 | XMS_ITS | Encounter Summary ---
Author Organization [facility] Address [address] [place] [address] Care Team Providers Care Cdl Truck Driver Name Role Phone Bernardo Nichols MD Primary Care Provider [phone] Encounter Details Date Type Department Care Team (Late st Contact Info) Description 06/20/2023 Lab Requisition [facility] Pathology & Laboratory Medicine - [facility] [address] [place] [address] Bernardo Nichols MD [address] [place] [address] Basal cell carcinoma of skin of other parts of face Social History Tobacco Use Types Packs/Day Years [...] No 01/18/2022 documented as of this encounter Plan of Treatment Upcoming Encounters Date Type Department Care Team (Late st Contact Info) Description 12/05/2023 13:30 EDT Telemedicine [facility] Neurology S [address] 199611 Aida Zaragoza MD [address] [place] [address] [phone] 01/15/2024 9:30 EDT Procedure visit [address] [id number] Aida Zaragoza MD [address] [place] [address] [phone] 01/27/2024 8:15 EDT Telemedicine [address] [id number] Nickie Zaragoza NP [address] [place] [address] [phone] 04/22/2024 8:30 EST Procedure visit [address] [id number] Aida Zaragoza MD [address] [place] [address] [phone] 07/23/2024 8:30 EDT Procedure visit [address] [id number] Aida Zaragoza MD 1 [facility], [address] [place] [phone] documented as of this encounter Procedures Procedure Name Priority Date/Time Associated Diagnosis Comments SURGICAL PATHOLOGY Today 06/19/2023 14 :20 EST Basal cell carcinoma of skin of other parts of face documented in this encounter Results * SURGICAL PATHOLOGY (06/19/2023 14:20 EST) Note to Patient The following pathology results have been interpreted by your pathologist and may be available to you before your health provider has had the opportunity to review them. Please allow time for your provider to receive these results and explore management options, if applicable. 06/25/2023 13:30 [facility] Final Diagnosis A. SKIN OF CHEEK, RIGHT, EXCISION: - Atypical spindled and epithelioid cell proliferation, favor atypical fibroxanthoma. See microscopic and comment. - Lesion measures approximately 0.8 mm to the nearest peripheral margin. - Lesion measures approximately 5.0 mm to the deep margin. 06/25/2023 13:30 [facility] Diagnosis Comment Present is an atypical spindled and epithelioid cell proliferation. The proliferation forms a nodule within the dermis with a sheet-like growth pattern and mitotic activity, including atypical mitoses. Also present is a ruptured follicle. While an exuberant repair process was considered, the cytologic atypia in conjunction with the atypical mitotic forms supports a neoplasm. 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 Job Foreman slides of this case were reviewed at the intradepartmental consultation conference. 06/25/2023 13:30 [facility] Attestation By the signature below, the attending physician certifies that they have 1) personally conducted a gross and/or microscopic examination of the described specimen(s), and/or personally interpreted the results of laboratory testing of the described specimen(s), and 2) personally rendered or confirmed the above diagnosis. 06/25/2023 13:30 [facility] at 1329 Microscopic Description Sections consist of an excision of skin. The epidermis shows effacement of the rete ridge pattern. Within the dermis is a nodule composed of a sheet-like proliferation of spindled and epithelioid cells mixed with lymphomononuclear cells. Some of the cells show enlargement with atypia. Numerous mitoses are noted, including atypical forms. Definitive necrosis is not identified. There is evidence of follicular rupture. Immunohistochemical stains are performed to better characterize the infiltrate, performed on A2. Keratin AE1-AE3 (AE1-AE3, [employer]): Negative P40 (BC28, [employer]): Negative Keratin 34BE12 (34BE12, Linda): Negative SOX-10 ALK PHOS (SP267, [employer]): Negative [place]-1(Melan-A) ALK PHOS (A103, Linda): Negative CD10 (56C6, Leica): Strong diffuse positivity CD163 (MRQ-26, Linda): Strong diffuse positivity CD68 (514H12, Leica): Patchy positivity Smooth Muscle Actin (1A4, [employer]): Patchy strong positivity Desmin (DE-R-11, Leica): Negative NOTE: One or more of the reagents used in immunoperoxidase testing in this case may not have been cleared or approved by the U.S. Food and Drug Administration (FDA). The FDA has determined that such clearance or approval is not necessary. These tests are used for clinical purposes. They should not be regarded as investigational or for research. These reagents' performance characteristics have been determined by [facility] and/or by the referring laboratory. The positive and negative controls worked appropriately. If immunoperoxidase staining has been performed on alcohol fixed cytology specimens, which has not been fully validated, the assays should be interpreted with caution and correlated with clinical data. This laboratory is certified under the Clinical Laboratory Improvement Amendments of 1988 (CLIA-88) as qualified to perform high complexity clinical laboratory testing.? 06/25/2023 13:30 [facility] Clinical History Clinical diagnosis code: C44.319 06/25/2023 13:30 [facility] Gross Description A. Received in formalin labelled with proper patient identification (initials N, W) and R cheek is a 1.2 x 0.8 x 0.6 cm unoriented, elliptical excision of hair-bearing, nodular perez skin. The margin is inked. The specimen is serially sectioned and entirely submitted in A1 (tips, reverse en face) and A2 (2 central sections). ALLYSON COWART(ASCP) 06/20/2023 17:42 06/25/2023 13:30 EDT [facility] Performing Lab [facility] 06/25/2023 13:30 EDT [facility] Scanned Images 06/25/2023 13:30 T [facility] Tissue SPECIMEN FROM SKIN / Unknown 06/19/2023 14:20 EST 06/20/2023 16:30 EST Bernardo Nichols MD PATHOLOGY ORDERABLES Performing Organization Address City/State/[facility] Co de Phone Number [facility] [address] [place] [phone] documented in this encounter Visit Diagnoses Diagnosis Basal cell carcinoma of skin of other parts of face documented in this encounter Care Teams Cdl Truck Driver Relationship Specialty Start Date End Date Bernardo Nichols MD [address] [place] [address] PCP - General 06/10/17 documented as of this encounter
--- OUTSIDE RECORDS SUMMARY | 2023-11-13 12:56 | XMS_ITS | Encounter Summary ---
Author Organization [facility] Address [address] [place] [address] Care Team Providers Care Computer Systems Software Engineer Name Role Phone Bernardo Nichols MD Primary Care Provider [phone] Reason for Referral * Referral (Routine/Next Available) - Authorization Not Required Specialty Diagnoses / Procedures Referred By Contartem t Referred To Contact Neurology Diagnoses Intractable headache, unspecified chronicity pattern, unspecified headache type Tramaine Mejia MD [address] [place] [phone] Genoveva Piña DO [address] [phone] Referral ID Status Reason Start Date Expiration Date Visits Requested Visits Authorized [id number] Authorization Not Required Specialty Services Required 04/19/2023 1 1 Question Answer Reason for Request: Chronic daily headache Context of referral: Established Problem Reason for referral: Consultation only Is headache attributable to an underlying condition? No Is patient actively missing work or school due to headache? No Has patient had a previous OUTSIDE of Epic neurology evaluation, neuroimaging (MRI or CT of brain or spine) or electrodiagnostic testing (EMG, NCS, EEG)? No Comments Requesting bilateral occipital nerve block in near term, formal headache medicine consultation on a nonurgent basis * Medication Prior Authorization (Routine/Next Available) - Closed Specialty Diagnoses / Procedures Referred By Contac t Referred To Contact Neurology Diagnoses Sialorrhea Procedures ND INCOBOTULINUMTOXIN A ND CHEMODENERV PAROTID&SUBMANDIBL SALIVARY GLNDS ND OFFICE/OUTPATIENT ESTABLISHED HIGH MDM 40 MIN Tramaine Mejia MD [address] [place] [phone] Tramaine Mejia MD [address] [place] [phone] Referral ID Status Reason Start Date Expiration Date Visits Requested Visits Authorized [id number] Closed Medication Prior Authorization 04/19/2023 04/19/2024 4 4 Question Answer What is the medication to be prior authorized? Xeomin What is the medication dose? 150 units What is the medication frequency? Every 3 months Additional notes for scheduling/prior authorization staff: Prior treatment with Xeomin 100 units incompletely effective and without side effects Comments The purpose of this request is to inform precertification staff that the requested service needs to be reviewed for prior-authorization. Reason for Visit * Reason Comments Procedure Xeomin * Medication Prior Authorization (Routine/Next Available) - Specialty Report Received Specialty Diagnoses / Procedures Referred By Nikhil arita Referred To Contact Neurology Diagnoses Sialorrhea Aida Zaragoza MD [address] [place] [phone] [facility] [address] [address] Referral ID Status Reason Start Date Expiration Date Visits Requested Visits Authorized [id number] Specialty Report Received Medication Prior Authorization 09/13/2022 09/14/2023 4 4 Encounter Details Date Type Department Care Team (Late st Contact Info) Description 04/19/2023 12:00 EST Procedure visit [facility] [place] [address] Tramaine Mejia MD [address] [place] [address], [place] [phone] Sialorrhea (Primary Dx); Parkinson's disease without dyskinesia or fluctuating manifestations; Intractable headache, unspecified chronicity pattern, unspecified headache type Social History Tobacco Use Types Packs/Day Years [...] this encounter Patient Instructions * Patient Instructions* Tramaine Mejia MD - 04/19/2023 12:00 EST Check sitting and standing BPs over 3-4 days and send to our office for review We will refer you for occipital nerve blocks for headache and for a headache consultation as well. documented in this encounter Progress Notes * Tramaine Mejia MD - 04/19/2023 1200 EST Images from the original note were not included. Primary Care: eBrnardo Magana [facility] [address] Reason for visit: ICD-10-CM ICD-9-CM 1. Sialorrhea K11.7 527.7 AMB CONS/FOLLOW UP CLINIC ADMIN MED PRIOR AUTHORIZATION REQUEST 2. Parkinson's disease without dyskinesia or fluctuating manifestations G20.A1 332.0 3. 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 Ambiguity of improvement with levodopa, but on further clarification there is absence of identifiable tremor improvement, and hope/expectation that levodopa would improve persistent chronic daily headache. Continue carbidopa levodopa dose and schedule without change at this time. Postural lightheadedness/neurogenic hypotension: Prior documented postural lightheadedness and hypotension. Recent discontinuation of fludrocortisone given. Persistent normotensive to hypertensive measurements on postural vital signs. Now with discontinuation of fludrocortisone recommendation for return back to evaluate postural vital signs despite absence of ongoing postural lightheadedness or other symptoms suggestive of neurogenic hypotension. Headache: Chronic daily holocranial constant head pain. Prior negative investigations. Given the occipital and vertex predominant location of pain with known degenerative cervical disease, recommended trial of occipital nerve blocks-referral placed. Headache medicine consultation requested. Referral placed, can be canceled if improvements in head pain are achieved with occipital nerve block. Restless leg syndrome: Currently nonbothersome with OTC restful legs formulation and current dopamine replacement therapy for parkinsonism. Remote history of epilepsy: Monitoring conservatively without ongoing antiseizure drug therapy Orders Placed This Encounter Procedures Ambulatory Clinic Admin Med Prior Authorization Request ([id number]) The purpose of this request is to inform precertification staff that the requested service needs [place] reviewed for prior-authorization. Standing Status: Future Standing Expiration Date: 04/19/2024 Referral Priority: Routine/Next Available Referral Type: Medication Prior Authorization Referral Reason: Medication Prior Authorization Number of Visits Requested: 1 Patient Instructions Check sitting and standing BPs over 3-4 days and send to our office for review We will refer you for occipital nerve blocks for headache and for a headache consultation as well. Return for follow-up: 3 months HPI: Returns for follow up Accompanied to visit by unaccompanied Persistent left-sided tremor and left greater than right bradykinesia/hypokinesia symptoms. Slowness of general body movement. Independently ambulatory despite gait changes. Subjectively without identifiable improvements with levodopa. On further inquiry, subjective expectant improvements in head pain with levodopa. Additionally endorses no identifiable changes in tremoror other motor changes- but with no clear subjective disability related to the symptoms. Interested in intent on pursuing high-dose vitamin B1 therapy targeting parkinsonism Falls: None Assistive devices: no assistive devices Dysarthria: Mild reduction in volume Dysphagia: No difficulty NON-MOTOR SYMPTOMS: Leg restlessness well-controlled and not interfering with initiation of sleep or sedentary behaviorin the evenings. Taking restful legs OTC formulation Relative improvements in the sialorrhea. Subjectively insufficient benefit. See procedure note for further details. Primary concern of ongoing daily holocranial occipital and vertex predominant pain. Nonpulsatile. No associated nausea/vomiting, light or sound sensitivity. Independently experiences neck discomfort associated with a lying down position. Denies sharp or lancinating pain. Known degenerative cervicalspine disease. Prior investigations including cranial imaging, negative bilateral temporal artery biopsies. Treatment with corticosteroids in early 2022 with relative improvements. Previously unresponsive to gabapentin and Depakote. Unclear benefit from topiramate-confounded by use of steroids around the same time. Current Outpatient Medications Medication Sig Dispense Refill acetaminophen (TYLENOL) 500 mg tablet Take 1 Tablet by mouth every 6 hours as needed for Pain. aspirin 81 mg capsule Take by mouth daily. (Patient not taking: Reported on 01/24/2023) atropine 1 % ophthalmic solution Use 1-2 drops up to 3 times per day UNDER THE TONGUE as needed forexcessive salivation (Patient not taking: Reported on 04/19/2023) 5 mL 2 carbidopa-levodopa (SINEMET) 25-100 mg per tablet Take 1 Tablet by mouth 2 times daily. cholecalciferol, Vitamin D3, 1,000 unit tablet Take 5 Tablets by mouth daily. cyanocobalamin (VITAMIN B-12) 500 mcg tablet Take 2 Tablets by mouth daily. ketOROLAC (TORADOL) 10 mg tablet Take 1 Tablet by mouth as needed for Pain (do not take more than 2tabs/week for headache pain>5/10). (Patient not taking: Reported on 02/08/2022) 14 Tablet 1 MAGNESIUM ORAL Take 1,000 mg by mouth. 2 500 MG TABS MELATONIN ORAL Take 3 mg by mouth at bedtime. OMEGA-3 330 MG-DHA AND EPA 300 MG-ALGAL OIL 600 MG CAPSULE 3,200 mg daily. ondansetron (ZOFRAN-ODT) 4 mg disintegrating tablet Take 1 Tablet by mouth every 8 hours as needed for Nausea. (Patient not taking: Reported on 09/13/2022) 21 Tablet 1 PREDNISONE ORAL Take 30 mg by mouth daily. (Patient not taking: Reported on 06/21/2022) selegiline (ELDEPRYL) 5 mg tablet Take 1 Tablet by mouth 2 times daily. 180 Tablet 3 thiamine HCl (VITAMIN B-1 ORAL) Take by mouth. UNABLE TO FIND Med Name: 'Restless legs' PRN for restless legs (Patient not taking: Reported on 11/08/2021) vibegron (GEMTESA) 75 mg tablet Take 1 Tablet by mouth daily. ZINC ORAL Take 11 mg by mouth daily. No current facility-administered medications for this visit. Allergies Allergen Reactions Grass Pollen Hay Fever Review of systems including , GI, sleep, cognition, psychiatric, presyncope/syncope,sweating abnormalities were negative or included in the history above with the following exceptions: Nocturia with numerable urinations per night causing sleep disruption. Recent discontinuation of mirabegron and replacement with vibegron Examination: There were no vitals taken for this visit. Alert, appropriate Ox3 Normal language Normal insight Normal judgement Mild restriction of bidirectional cervical range of motion Mild asymmetry of palpebral fissure smaller on the left than right with otherwise symmetric facial activation. Mild definite reduction in facial spontaneity Moderate left and mild right bradykinesia/hypokinesia in the limbs Persistent left upper limb rest tremor with infrequent abatement spontaneously Intermittent right upper limb low amplitude distal rest tremor Stands out of a chair in a mildly slowed but single fluid motion. Ambulates with a mild symmetric stride length shortening. Bilateral reduction in arm swing. En bloc turning mild. I spent a total of 42 minutes on the date of this encounter meeting with the patient and reviewing documentation/coordinating care as described in the above note. Patient/child care cook education Review of the pertinent information in the electronic health record Care plan formulation Supportive counseling as described in the assessment and plan Documentation of clinical information in the EHR Encounter Provider: Tramaine Mejia MD * Tramaine Mejia MD - 04/19/2023 1200 EST [facility] Neurology Botulinum Toxin Injection Procedure Note Diagnosis / Indication for Injections: ICD-10-CM ICD-9-CM 1. Sialorrhea K11.7 527.7 AMB CONS/FOLLOW UP CLINIC ADMIN MED PRIOR AUTHORIZATION REQUEST Interval history: Comparative relative reduction of approximately 40% in overall severity of excessive salivation during maximal benefit. Estimated week or 2 before identifying any reduction in saliva volume and associated pooling or drooling. No bothersome mouth dryness. No difficulties with swallowing during maximal benefit of driving. PROCEDURE The nature of the procedure, potential procedural and therapy-related risks and side effects were reviewed with the patient/responsible constitution party. A pre-procedure verification was conducted prior to the procedure. The patient???s identity, procedure, and when applicable the side/site, patient position,availability of implants and any special equipment or special requirements was verbally confirmed prior to the procedure. Informed consent was obtained after discussing potential benefits, alternative treatments, consequences [...] a 30 gauge EMG needle. Final dilution 2 ml per 100 unit vial. Botulinum toxin injections: Side Muscle Sites Concentration (units / ml) Volume per site (cc) Total Units R Parotid 2 100 /2 mL .75 37.5 L Parotid 2 100 /2 mL .75 37.5 R Submandibular 1 100 /2 mL .25 12.5 L Submandibular 1 100 /2 mL .25 12.5 TOTAL USED 100 UNITS WASTED 0 Vial 1: Xeomin 100 unit vial [[facility] [id number]] Lot #: [id number] Exp: 09/2024 The patient tolerated the procedure well. There were no immediate complications. ASSESSMENT & PLAN/RECOMMENDATIONS: Sialorrhea improved but inadequately controlled with 100 units injected quarterly. Modified concentration and dose distribution with increased treatment of the parotids with reduction to the submandibular glands See prior authorization for relative dose increase to 150 units. Tramaine Mejia MD documented in this encounter Plan of Treatment Upcoming Encounters Date Type Department Care Team (Late st Contact Info) Description 12/05/2023 13:30 EDT Telemedicine [facility] Neurology S [address] [phone] Aida Zaragoza MD [address] [place] [phone] 01/15/2024 9:30 EDT Procedure visit [facility] Neurology [address] [address] Aida Zaragoza MD [address] [place] [phone] 01/27/2024 8:15 EDT Telemedicine [facility] Neurology S [address] [address] Nickie Zaragoza NP [address] [phone] 04/22/2024 8:30 EST Procedure visit [facility] Neurology S [address] [phone] Aida Zaragoza MD [address] [place] [phone] 07/23/2024 8:30 EDT Procedure visit [address] [address] Aida Zaragoza MD [address] [place] [phone] Scheduled Referrals Name Type Priority Associated Diagnoses Order Schedule AMB CONS/FOLLOW UP CLINIC ADMIN MED PRIOR AUTHORIZATION REQUEST Outpatient Referral Routine/Next Available Sialorrhea Expected: 07/19/2023 (Approximate), Expires: 04/19/2024 AMB CONS/FOLLOW UP HEADACHE Outpatient Referral Routine/Next Available Intractable headache, unspecified chronicity pattern, unspecified headache type Expected: 05/20/2023 (Approximate), Expires: 04/19/2024 documented as of this encounter Visit Diagnoses Diagnosis Sialorrhea- Primary Disturbance of salivary secretion Parkinson's disease without dyskinesia or fluctuating manifestations ([facility]) Intractable headache, unspecified chronicity pattern, unspecified headache type documented in this encounter Discontinued Medications Medication Sig Discontinue Reason Start Date End Da te carbidopa-levodopa (RYTARY) 23.75-95 mg ER capsule Take 2 Capsules by mouth 3 times daily. 01/24/2023 04/19/2023 gabapentin (NEURONTIN) 300 mg capsule Take 1 Capsule by mouth at bedtime. 06/26/2022 04/19/2023 mirabegron (MYRBETRIQ) 25 mg extended release tablet Take by mouth daily. 04/19/2023 methylPREDNISolone (MEDROL DOSEPACK) 4 mg tablet For migraine longer than 72 hours. Follow package directions. 03/02/2022 04/19/2023 fludrocortisone (FLORINEF) 0.1 mg tablet Take 1 Tablet by mouth daily. 04/19/2023 documented as of this encounter Historical Medications * This list may reflect changes made after this encounter. Medication Sig Dispensed Refills Start Date End Date ZINC ORAL Take 11 mg by mouth daily. added in this encounter Care Teams Computer Systems Software Engineer Relationship Specialty Start Date End Date Bernardo Nichols MD [address] [place] [address] PCP - General 06/10/17 documented as of this encounter
--- OUTSIDE RECORDS SUMMARY | 2023-11-13 12:56 | XMS_ITS | Encounter Summary ---
Author Organization [facility] Address [address] [place] [address] Care Team Providers Care Diesel Lube Tech Name Role Phone Bernardo Nichols MD Primary Care Provider [phone] Reason for Visit * Reason Onset Date Comments Update 09/26/2023 Encounter Details Date Type Department Care Team (Late st Contact Info) Description 09/26/2023 Telephone [facility] Neurology - S [address] [id number] Aida Zaragoza MD [address] [place] [address] Level 2 [place] [phone] Update Social History Tobacco Use Types Packs/Day Years [...] Dispensed Refills Start Date End Da te amantadine HCL (SYMMETREL) 100 mg capsule Take 1 Capsule by mouth every morning. 30 Capsule 1 09/30/2023 10/08/2023 documented in this encounter Miscellaneous Notes * Telephone Encounter - Emani Saeed RN - 09/30/2023 1351 EDT TC to Jim, relayed message from Dr. Zaragoza. After reviewing medication instructions and potential side effects, Jim would like to do a trial of amantadine. He will take one pill in the morning starting when he gets the medication filled, and will update Dr. Zaragoza at 10/09 appointment. He knows to call sooner if he has questions or concerns. New Rx pended to Dr. Zaragoza for review and approval. * Telephone Encounter - Mariana Simpson - 09/26/2023 1339 EDT Jim called in this afternoon to report that the tapering of the Carbidopa- Levodopa has helped with his jaw tension, but it seems to be making his body stiff, having body tremors on his left side and making him slow. He was wondering if he should restart the carbidopa-levodopa (RYTARY) 23.75-95 mg ER capsule and see if that helps. Please call to advise. Thank you documented in this encounter Plan of Treatment Upcoming Encounters Date Type Department Care Team (Late st Contact Info) Description 12/05/2023 13:30 EDT Telemedicine [facility] Neurology - S [address] [id number] Aida Zaragoza MD [address] [place] [address] [phone] 01/15/2024 9:30 EDT Procedure visit [address] [address] Aida Zaragoza MD [address] [place] [address] [phone] 01/27/2024 8:15 EDT Telemedicine [address] 616261 Nickie Zaragoza NP [address] [place] [address] [phone] 04/22/2024 8:30 EST Procedure visit [address] [address] Aida Zaragoza MD [address] [place] [address] [phone] 07/23/2024 8:30 EDT Procedure visit [address] 509771 Aida Zaragoza MD [address] [place] [address] [phone] documented as of this encounter Visit Diagnoses Not on filedocumented in this encounter Care Teams Diesel Lube Tech Relationship Specialty Start Date End Date Bernardo Nichols MD [address] [place] [address] PCP - General 06/10/17 documented as of this encounter
--- OUTSIDE RECORDS SUMMARY | 2023-11-13 12:56 | XMS_ITS | Clinical Summary ---
Author Organization [facility] Address [address] [place] [address] Care Team Providers Care Telephoner Name Role Phone Bernardo Nichols MD Primary Care Provider [phone] Allergies Active Allergy Reactions Criticality Noted Date [...] Date History of seizures 08/24/2021 Dysesthesia 04/18/2020 Encounters Date Type Department Care Team Description 11/12/2023 Telephone [facility] [place] [address] Hannah Escamilla MD Appointment Related 11/12/2023 Telephone [facility] Neurology S [address] [address] Aida Zaragoza MD Medication Questions 11/08/2023 Telephone [facility] Neurology S [address] [address] Aida Zaragoza MD New/Evolving Symptoms 11/07/2023 8:30 EDT Procedure visit [facility] Neurology S [address] [address] Aida Zaragoza MD 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 (HCC-CMS) (Primary Dx); Focal dystonia; Jaw dyskinesia; Sialorrhea; Restless legs syndrome (RLS) 11/06/[address] [address] Hannah Escamilla MD Medication Management 10/31/2023 8:00 EDT Telemedicine [address] [address] Hannah Escamilla MD Intractable chronic migraine without aura and without status migrainosus (Primary Dx) 10/16/[address] [address] Aida Zaragoza MD New/Evolving Symptoms; Medication Management 10/08/2023 13:00 EDT Telemedicine [address] [address] Aida Zaragoza MD 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 (HCC-CMS) (Primary Dx); Jaw dyskinesia; Focal dystonia; Sialorrhea; Intractable headache, unspecified chronicity pattern, unspecified headache type 10/03/[address] [address] Aida Zaragoza MD Appointment Related 09/26/[address] [address] Aida Zaragoza MD Update 09/06/[address] [address] Aida Zaragoza MD Appointment Related 09/05/2023 16:[address] [address] Aida Zaragoza MD Parkinson's disease without dyskinesia or fluctuating manifestations (HCC-CMS) (Primary Dx); Focal dystonia; Jaw dyskinesia; Restless legs syndrome (RLS); Sialorrhea 08/19/2023 [facility] [address] [place] [address] Aida Zaragoza MD Appointment Related from Last 3 Months Surgical History Surgery Date Site/Laterality Comments JOINT REPLACEMENT 04/15/2009 - 04/14/2010 Right Medical History Medical History Date Comments HLD (hyperlipidemia) Sleep apnea GERD (gastroesophageal reflux disease) Family History Medical History Relation Comments Cancer Brother Stroke Father Stroke Mother Relation Status Comments Brother Father (Age 60) Mother (Age 90) Sister Alive Social History Tobacco Use Types Packs/Day Years [...] 16:10 EDT Sexual Orientation Not on file Obstetrics History Last Filed Vital Signs Vital Sign Reading [...] Body Mass Index 24.41 01/18/2022 1259 EDT Plan of Treatment Upcoming Encounters Date Type Department Care Team (Late st Contact Info) Description 12/05/2023 13:30 EDT Telemedicine [facility] Neurology S [address] [phone] Aida Zaragoza MD [address] [phone] 01/15/2024 9:30 EDT Procedure visit [address] 253001 Aida Zaragoza MD [address] [place] [address] [phone] 01/27/2024 8:15 EDT Telemedicine [address] 594661 Nickie Zaragoza NP [address] [place] [address] [phone] 04/22/2024 8:30 EST Procedure visit [address] [id number] Aida Zaragoza MD [address] [place] [address] [phone] 07/23/2024 8:30 EDT Procedure visit [address] [id number] Aida Zaragoza MD [address] [place] [address] [phone] Health Maintenance Due Date Last Done Comments Hepatitis C Screen 1945 RSV Immunization ( o r 60+ Years) (1 - 1-dose 60+ series) 2004 COVID-19 Vaccine ( - 2022-24 season) 2022 Fall Risk Screening 01/18/2023 01/18/2022 Medical Devices Implanted Type Area Residential Coordinator Device Identifier Shelf Expiration Date Model / Serial / Lot Right Thr-Mr Safe Care Teams Telephoner Relationship Specialty Start Date End Date Bernardo Nichols MD [address] [place] [address] PCP - General 06/10/17
--- OUTSIDE RECORDS SUMMARY | 2023-11-13 12:56 | XMS_ITS | Encounter Summary ---
Author Organization [facility] Address [address] [place] [address] Care Team Providers Care Marriage And Family Teacher Name Role Phone Bernardo Nichols MD Primary Care Provider [phone] Reason for Visit * Reason Comments Follow-up Telemedicine Video Visit Encounter Details Date Type Department Care Team ([facility] Contact Info) Description 10/08/2023 13:[address] 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 [...] * Patient Instructions* Aida Zaragoza MD - 10/08/2023 13:00 EDT - continue to hold carbidopa-levodopa / Sinemet / Rytary for now - stop selegiline tablet - increase amantadine to 1 capsule in the morning + 1 capsule around noon time - experiment with exercising earlier in the day, just to see if you feel better sooner - we will see each other in a month for saliva injections, but if the jaw issues return, we can inject that as well - if the amantadine doesn't seem to help, we can get rid of that medication and retry the Rytary (carbidopa-levodopa capsules) at a higher dose documented in this encounter Ordered Prescriptions Prescription Sig Dispensed Refills Start Date End Da te amantadine HCL (SYMMETREL) 100 mg capsule Take 1 Capsule by mouth 2 times daily. 60 Capsule 3 10/08/2023 documented in this encounter Progress Notes * Aida Zaragoza MD - 10/08/2023 1300 EDT Images from the original note were not included. Type of visit: Follow-up visit Clinician Requesting Consultation: No referring provider defined for this encounter. Phone: N/A Fax: Primary Diesel Engine Fitter: Bernardo [address] [facility] [id number] ASSESSMENT & PLAN / RECOMMENDATIONS 1. 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 Jaw dyskinesia 3. Focal dystonia 4. Sialorrhea 5. Intractable headache, unspecified chronicity pattern, unspecified headache type Jim Gonzalez is a 77 y.o. gentleman who returns to the [facility] Movement Disorders clinic for evaluation [...] effects at low doses preventing escalation beyond 600mg. -- PARKINSON DISEASE: at least 4 years [...] one of his most bothersome symptoms. - hold off on carbidopa-levodopa for now, but contingency to reintroduce Rytary 95mg capsules at a higher dose (3 capsules TID) - stop selegiline 5mg tablets - continue amantadine 100mg capsules: take 1 capsule in the morning + add 1 capsule at noontime; max dose 400mg/day as long as he does not experience side effects - consider injections for jaw dystonia if recurs (or if we need to add levodopa back) - approved byinsurance - encouraged exercise and physical activity as much as tolerated -- SIALORRHEA: ongoing and bothersome,increased salivation during the day and at night. Reviewed non-medication treatment strategies to employ during the daytime in addition to Xeomin injections. He did not appreciate a sustained improvement with previous injections, so increased dosage by 50% lasttime. - Xeomin injections performed q12 weeks - atropine drops provided for sublingual use -- RESTLESS LEGS SYNDROME: increased risk given parkinsonism, but symptoms have remained stable with the current dosage of medication. - continue with gabapentin 300mg at bedtime Return to clinic: 1 month on-site for botulinum toxin injections SUBJECTIVE Reason for consultation/ Chief complaint: Parkinson disease History of Presenting Illness (HPI): Jim Gonzalez is a 77 y.o. gentleman who was referred to the [facility] Movement Disorders clinic for evaluation [...] started on gabapentin. Interval history (last visit 09/05/2023): He stopped the levodopa - found that the movements in the jaw improved, but his overall mobility declined. We agreed to a trial of amantadine, one capsule in the morning, starting last week. He states that he has good days and not so good days. Mobility isparticularly bad at night, and that did not seem to help. Tremors are worse as well. He also notes foggy brain - this is better when he takes levodopa and feels worse currently. He describes his typical day: wakes up at 6:15-6:30am and feels all right, takes his morning medication and can do his morning routine and eat breakfast, then starts to feel a headache come on. Afterbreakfast, around 8am, he starts to experience brain fog, fatigue. Then in the middle of the afternoon he exercises and starts to feel better. By the late afternoon, he feels pretty good up until bedtime. Current PD medications: - - selegiline 5m tablet daily - amantadine 100m capsule daily ROS: A comprehensive 13 system review [...] phonophobia - sialorrhea - worsening and bothersome - painful jaw dystonia Current Medications: Outpatient Medications Marked as Taking for the 10/08/23 encounter (Telemedicine) with Aida Zaragoza MD Medication Sig Dispense Refill amantadine HCL (SYMMETREL) 100 mg capsule Take 1 Capsule by mouth every morning. 30 Capsule 1 apixaban (ELIQUIS) 5 mg tablet Take 1 Tablet by mouth 2 times daily. cholecalciferol, Vitamin D3, 1,000 unit tablet Take 5 Tablets by mouth daily. cyanocobalamin (VITAMIN B-12) 500 mcg tablet Take 2 Tablets by mouth daily. MAGNESIUM ORAL Take 1,000 mg by mouth. 2 500 MG TABS MELATONIN ORAL Take 3 mg by mouth at bedtime. OMEGA-3 330 MG-DHA AND EPA 300 MG-ALGAL OIL 600 MG CAPSULE 3,200 mg daily. selegiline (ELDEPRYL) 5 mg tablet Take 1 Tablet by mouth 2 times daily. 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 OBJECTIVE Vital Signs There were no vitals filed for this visit. Physical Examination Full examination deferred today due to poor video connectivity. Speech is fluent without evidence of expressive or receptive aphasia. Mild hypophonia with decreased vocal prosody. Thought process is linear, appropriate to the conversation. Moderate hypomimia DATA No new data to review. Previous [...] provider: Office I spent a total of 30 minutes on the date of this encounter meeting with the patient and reviewing documentation/coordinating care as described in the above note. Time dedicated to this visit was spent on the following activities: Patient/care transport nurse education Review of the pertinent information in the electronic health record Care plan formulation Supportive counseling Documentation of clinical information in the EHR Ordering of medication(s) Scanned health information available from the referring and/or primary provider(s) Aida Lackey MD Attending Physician, Movement Disorders Department of Neurology documented in this encounter Plan of Treatment Upcoming Encounters Date Type Department Care Team (Late st Contact Info) Description 12/05/2023 13:[address] [facility] Neurology [address] [id number] Aida Zaragoza MD [address] [place] [address] [phone] 01/15/2024 9:30 EDT Procedure visit [address] 099351 Aida Zaragoza MD [address] [place] [address] [phone] 01/27/2024 8:[address] [facility] Neurology [address] [address] Nickie Zaragoza NP [address] [place] [address] [phone] 04/22/2024 8:30 EST Procedure visit [address] [phone] Aida Zaragoza MD [address] [place] [address] [phone] 07/23/2024 8:[address] 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 Reorder 09/30/2023 10/08/2023 documented as of this encounter Care Teams Marriage And Family Teacher Relationship Specialty Start Date End Date Bernardo Nichols MD [address] [place] [address] PCP - General 06/10/17 documented as of this encounter
--- OUTSIDE RECORDS SUMMARY | 2023-11-13 12:56 | XMS_ITS | Encounter Summary ---
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 [facility] [address] Daniel Lewis PA [facility] [place] [place] [address] Abnormal stress test Social History Tobacco Use Types Packs/Day Years Used Date Smoking Tobacco: Never Assessed Sex and Gender Information Value Date Recorded Sex Assigned at Not on file Gender Identity Not on file Sexual Orientation Not on file documented as of this encounter Plan of Treatment Not on file documented as of this encounter Procedures Procedure Name Priority Date/Time Associated Diagnosis Comments CARDIAC CATHETERIZATION Routine 01/15/20 18 3:22 PM EDT Abnormal stress test documented in this encounter Results * CARDIAC CATHETERIZATION (01/14/2018 3:22 PM EDT) Anatomical Region Laterality Modality Other Narrative 01/14/2018 5:44 PM EDT ?[facility] ? Cardiac Catheterization/Intervention Report ? Patient Name: Gonzalez, Jim ? Procedure Date: 01/14/2018 ? A #: [id number] ? Primary Physician: Chantel, Teo E ? Case #: [id number] ? File Name: [id number] ? Catheterization Order Number: [id number] ? [facility] ? Final Report [place], [place] ? Patient Name: ? Jim Gonzalez ? ID#: ?[id number] ? : ?1945 ? Procedure Date: ? January 14, 2018 ?Case #: ? [id number] ? Room: ? 5 ? Case Physician: ? Teo Golden M.D. ? Start: ?14:05 ?Fellow: ? Sebastian Gonzalez M.D. ?Admission: ??01/14/2018 ?Patrick Resendiz M.D. ? Referring Physician: ??Bhanu Luque M.D. ? Procedures: ?* Coronary Angiography ?* Left Heart Catheterization ? History ?Jim Gonzalez is a 72 year old man. He has hypertension and a family ?history of coronary artery disease. The patient has a history of smoking. ?He has hypercholesterolemia managed with lipid therapy. The patient has ?stable angina and a history of chest pain. 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 The patient has a history of chronic obstructive ?pulmonary disease. He also has a history of an abnormal stress test. ?Prior to the initiation of this procedure, the patient was designated as ?ASA Class II. ? Patient Status at Catheterization: ?The patient presented with: stable angina (w/i 42 days). [place] ?Cardiovascular Society angina class was II. This patient was on beta ?blockers prior to the procedure. A standard exercise stress test was ?performed and results were Positive and High Risk ischemia assessment. ?The status of the diagnostic procedure was Elective. ? Technique: ?A 6 SLFr sheath was inserted in the right radial artery utilizing the ?Seldinger technique. The left coronary artery was injected utilizing a ?6Fr JL 3.5 catheter. A 5Fr WILFRED RADIAL catheter was used to inject the ?right coronary artery. Left ventricular pressure was performed with a 6Fr ?AR MODIFIED catheter. 7,500 units of heparin were administered. A total ?of 200cc of Omnipaque were opened, 110cc of Omnipaque were administered ?and 90cc of Omnipaque were wasted. Radiation: Fluoro time was 29.9 ?minutes, dose area product was 86,421 mGYcm2 and air kerma was 2,047 mGY. ?The patient received the following medications prior to and during the ?procedure: Aspirin (any) and Unfractionated Heparin (any). ? Hemodynamics: ?Left Heart Pressures ? Resting: ? Syst Diast ? EDP ?a ?v ? m ?Ao 104 ?? 58 ?78 ?LV ? 10 ?Comments: ??No V-Gram: AOp: 125/64 (89) ?LVp: ??122/1, 10. ? Coronary Angiography: ?Dominance: Co-dominant ?Left Main ? There was mild diffuse (<=25% stenosis) disease of the distal ? segment of the left main artery. ?Left Anterior Descending ? There was mild diffuse (<=25% stenosis) disease of the proximal ? segment of the left anterior descending artery (LAD). ??The LAD was ? large. ??The mid segment of the LAD had mild diffuse (<=25% stenosis) ? disease. ?Left Circumflex ? The left circumflex (LCX) was normal, free of disease. ?Right Coronary Artery ? There was mild diffuse (<=25% stenosis) disease of the mid segment ? of the right coronary artery (RCA). ??The RCA was small. ? Small vessel with high anterior take-off. Difficult engagement from ? R radial; multiple catheters tried before successful brief ? engagement with Wilfred. ? Vascular Access: ?Vascular Access Management: ? Mechanical Compression of the right radial artery access site was ? performed. ? Conclusions: ?* Nonobstructive coronary artery disease ? Complications/Events: ?The patient had no complications during these procedures. ?The attending physician was present for the entire procedure. ?Dr. Teo Golden M.D. was present during the moderate sedation ?intraservice time as documented by the sedation nurse. ??Case time = 01:10. ?Dr. Teo Golden M.D. performed the coronary angiography and left heart ?catheterization. ? Teo Golden M.D. ? Electronically Signed by: Teo Golden M.D. ? Report Finalized: 01/14/2018 ??17:39 ? Procedure Note Teo Golden MD - 01/14/2018 [facility] Cardiac Catheterization/Intervention Report Patient Name: Jim Gonzalez Procedure Date: 01/14/2018 A #: [id number] Primary Physician: Teo Golden Case #: [id number] File Name: [id number] Catheterization Order Number: [id number] [facility] FinalReport [place], [place] Patient Name: Jim Gonzalez ID#:[id number] :1945 Procedure Date: January 14, 2018 Case #: [id number] Room: 5 Case Physician: Teo Golden M.D. Start: 14:05 Fellow: Sebastian Gonzalez M.D. Admission:01/14/2018 Patrick Resendiz M.D. Referring Physician: Bhanu Luque M.D. Procedures: * Coronary Angiography * Left Heart Catheterization History Jim Gonzalez is a 72 year old man. He has hypertension and a family history of coronary artery disease. The patient has a history ofsmoking. He has hypercholesterolemia managed with lipid therapy. The patienthas stable angina and a history of chest pain. He has a history of bradycardia/heart block. The patient has a history of chronicobstructive pulmonary disease. He also has a history of an abnormal stress test. Prior to the initiation of this procedure, the patient wasdesignated as ASA Class II. Patient Status at Catheterization: The patient presented with: stable angina (w/i 42 days). [place] [employer] Society angina class was II. This patient was on beta blockers prior to the procedure. A standard exercise stress test was performed and results were Positive and High Risk ischemiaassessment. The status of the diagnostic procedure was Elective. Technique: A 6 SLFr sheath was inserted in the right radial artery utilizingthe Seldinger technique. The left coronary artery was injected utilizinga 6Fr JL 3.5 catheter. A 5Fr WILFRED RADIAL catheter was used to injectthe right coronary artery. Left ventricular pressure was performed witha 6Fr AR MODIFIED catheter. 7,500 units of heparin were administered. Atotal of 200cc of Omnipaque were opened, 110cc of Omnipaque wereadministered and 90cc of Omnipaque were wasted. Radiation: Fluoro time was 29.9 minutes, dose area product was 86,421 mGYcm2 and air kerma was 2,047mGY. The patient received the following medications prior to and duringthe procedure: Aspirin (any) and Unfractionated Heparin (any). Hemodynamics: Left Heart Pressures Resting: Syst Diast EDP a v m Ao 104 58 78 LV 10 Comments: No V-Gram: AOp: 125/64 (89) LVp: 122/1, 10. Coronary Angiography: Dominance: Co-dominant Left Main There was mild diffuse (<=25% stenosis) disease of the distal segment of the left main artery. Left Anterior Descending There was mild diffuse (<=25% stenosis) disease of the proximal segment of the left anterior descending artery (LAD). The LADwas large. The mid segment of the LAD had mild diffuse (<=25%stenosis) disease. Left Circumflex The left circumflex (LCX) was normal, free of disease. Right Coronary Artery There was mild diffuse (<=25% stenosis) disease of the midsegment of the right coronary artery (RCA). The RCA was small. Small vessel with high anterior take-off. Difficult engagementfrom R radial; multiple catheters tried before successful brief engagement with Wilfred. Vascular Access: Vascular Access Management: Mechanical Compression of the right radial artery access sitewas performed. Conclusions: * Nonobstructive coronary artery disease Complications/Events: The patient had no complications during these procedures. The attending physician was present for the entire procedure. Dr. Teo Golden M.D. was present during the moderate sedation intraservice time as documented by the sedation nurse. Case time =01:10. Dr. Teo Golden M.D. performed the coronary angiography and leftheart catheterization. Teo Golden M.D. Electronically Signed by: Teo Golden M.D. Report Finalized: 01/14/2018 17:39 Davey Liu MD CARDIAC CATH ORDERAB LES documented in this encounter Visit Diagnoses Diagnosis Abnormal stress test Other nonspecific abnormal cardiovascular system function study Abnormal stress test Other nonspecific abnormal cardiovascular system function study documented in this encounter
--- OUTSIDE RECORDS SUMMARY | 2023-11-13 12:56 | XMS_ITS | Encounter Summary ---
Author Organization [facility] Address [address] [place] [address] Care Team Providers Care Propulsion Generator Repairer Name Role Phone Bernardo Nichols MD Primary Care Provider [phone] Reason for Visit * Reason Onset Date Comments New/Evolving Symptoms 10/16/2023 Medication Management 10/16/2023 Encounter Details Date Type Department Care Team (Late st Contact Info) Description 10/16/2023 Telephone [facility] Neurology - [place] [address] [place] [address] [id number] Aida Zaragoza MD [address] [place] [address] [address] [place] [address] New/Evolving Symptoms; Medication Management Social [...] Miscellaneous Notes * Telephone Encounter - Aleah Salvador RN - 11/07/2023 1026 EDT Pt seen in office today by Dr. Lackey. * Telephone Encounter - Bhanu Jaimes - 11/01/2023 1310 EDT Pt calls regarding this encounter, feels like the AMANTADINE is not helping. He is unsure of whether or not the SELEGELINE is working. Pt would like a callback herb to discuss meds and symptoms. * Telephone Encounter - Teo Allen - 10/29/2023 1117 EDT Bill called saying that he's having a problem with his meds Amantadine and Selegiline, that his symptoms are really acting up. Symptoms include: slowness of movement, headache, fatigue in legs, tremor on left side and in general feeling poorly. He asks for a call back to advise. * Telephone Encounter - Karen Swartz RN - 10/18/2023 1332 EDT Patient returned call. Relayed message to patient to start taking selegiline 5 mg 1 tablet a day per Dr. Darya Zaragoza. Patient aware to stay at the same dosing of his amantadine and call us if any issues. * Telephone Encounter - Karen Swartz RN - 10/18/2023 1225 EDT Images from the original note were not included. Call to patient to discuss Dr. Zaragoza response to nursing below. LMAida Bautista MD Neuro Move Rn Pool41 minutes ago (11:39) It sounds like the selegiline was helping and we should add it back in. He can keep taking the higher dose of amantadine with it. LD * Telephone Encounter - Karen Swartz RN - 10/18/2023 0938 EDT Reason for call: Movement issues since being off selegiline Returned call to patient. Patient states he has been having increased slowness in movement, particularly at night and trouble getting out of bed. Tremor in his left hand has also been worse lately.Patient states restless leg symptoms have been good, no issues there. Patient states once he was off selegiline and started on amantadine he noticed his movement symptoms getting worse. Patient states he feels better by the afternoon after his second dose of amantadinebut feels like it is taking a long time to kick in. Questions for provider: Patient is wondering if he needs any medication changes since being off hisselegiline to help with his movement issues at night. * Telephone Encounter - Bhanu Jaimes - 10/16/2023 0955 EDT Pt came off a med about a week ago and has been having worsening symptoms, including a constant tremor in his right hand. Pt is very tired and slow especially at night, he is having trouble even rolling over in bed, and he want to know if he needs to get back on the meds. selegiline (ELDEPRYL) 5 mg tablet And he is asking about possible dose changes to other meds. Please call to discuss. documented in this encounter Plan of Treatment Upcoming Encounters Date Type Department Care Team (Late st Contact Info) Description 12/05/2023 13:30 EDT Telemedicine [address] [id number] Aida Zaragoza MD [address] [place] [address] [phone] 01/15/2024 9:30 EDT Procedure visit [address] [id number] Aida Zaragoza MD [address] [place] [address] [phone] 01/27/2024 8:15 EDT Telemedicine [address] [phone] Nickie Zaragoza NP [address] [place] [address] [phone] 04/22/2024 8:30 EST Procedure visit [address] [id number] Aida Zaragoza MD [address] [place] [address] [phone] 07/23/2024 8:30 EDT Procedure visit [address] [id number] Aida Zaragoza MD [address] [place] [address] [phone] documented as of this encounter Visit Diagnoses Not on filedocumented in this encounter Care Teams Propulsion Generator Repairer Relationship Specialty Start Date End Date Primeau, Bernardo E, MD [address] [place] [address] PCP - General 06/10/17 documented as of this encounter
--- OUTSIDE RECORDS SUMMARY | 2023-11-13 12:56 | XMS_ITS | Encounter Summary ---
Author Organization [facility] Address [address] [place] [address] Care Team Providers Care Sap Bi Developer Name Role Phone Brenardo Nichols MD Primary Care Provider [phone] Reason for Visit * Reason Onset Date Comments New/Evolving Symptoms 02/25/2023 Encounter Details Date Type Department Care Team (Late st Contact Info) Description 02/25/2023 Telephone [facility] Neurology - [place] [address] [place] [address] [phone] Aida Zaragoza MD [address] [place] [address] 2 [place] [address] New/Evolving Symptoms Social History Tobacco Use Types Packs/Day Years [...] as of this encounter Miscellaneous Notes * Addendum Note - Vanesa Ruelas RN - 03/14/2023 1702 ESTAddended by: VANESA RUELAS on: 03/14/2023 17:02 Modules accepted: Orders * Telephone Encounter - Leanne Vivar - 03/14/2023 1514 EST Jim calls asking for vanesa in regards to new/ evolving symptoms whom is not available at this time. Vanesa said she will reach out to Jim around 3:30PM or so. * Telephone Encounter - Vanesa Ruelas RN - 03/14/2023 1148 EST Phoned Power to discuss below iitalicized info/response from Dr Lackey, [facility] [place] - so issues are not likely to be related to medication, since that would tend to make the blood pressure lower, plus he is taking a very low dose. Did he check orthostatic vitals to make sure that his blood pressure isn't dropping, as Vanesa instructed? *Power was not checking his orthostatic pressures entirely correct. Reiterated the procedure,at end of our conversation he was able to relay back. Clarified importance of both uninterrupted resting time and duration (he had been sitting in chair x5, then got up to retrieve BP equip than taking BP right after he returned to chair.) We can send a referral to headache clinic if he would like. He may also need to check in with his PCP regarding his blood pressure issues. *he would like to be referred to AMEZCUA clinic With regards to some of the other symptoms - the fogginess, jaw tightness, etc. I am just not sure how to help him with that. We tried to switch to a different PD medication but that seemed to make things worse? And there have been times that he has stopped the medications but also felt worse? Maybe can try to find out if anything seems to be better, but I haven't heard of anything consistently helping. * headaches occur daily, pattern is consistently predictable -they 'come and go over a 24h period. -They occur daily, begin abt 1/2-3/4h after getting oob -intensity is up and down t/o day, no noticeable reason for fluctuations -around bedtime it tapers off and he 'feels great' -he's been taking 300mg B1 daily, wondered if this contrib to AMEZCUA, stopped taking it and had no headache x1d, then they recurred -he has to get up to void approx 3-4x (sometimes more) in a 6-7h period of sleep. He has recently seen urologist and reports he was informed there were no issues. He was prescribed mirabegron 25mg; he has yet to take this d/t high cost of med. Informed him re [facility], he will look into that as an option for RX coverage Bill is aware that this message will be routed to Dr Lackey * Telephone Encounter - Darcy Mcmillan RN - 03/08/2023 1005 EST Phone call to patient to check in ?? He reports mostly having on and off AMEZCUA with feeling foggy - some c/o lightheadedness but when he take his BP it's been up (160/80-90's) ?? He is taking tyl and aleve for AMEZCUA with some effect ?? Routing to Dr Darya Zaragoza for review and any recommendations * Telephone Encounter - Vanesa Ruelas RN - 03/04/[address] Lackey to below info: Could he keep track of blood pressure and see if it is dropping low when he is feeling unwell? He is taking a low dose of both medications but if the symptoms are happening after taking the medications, it could be too much. -wm. Verifies that he d/c Rytary approx 2 w ago, -Sinimet remains at 25-100 x1 AM, afternoon --Jim states that he began taking a B supplement approx 4d ago and he 'feels better' with decrease in sx. States he usually drinks approx 60oz/day but has recently decreased that d/t havin to get up to void 4x/night. Encouraged him to drink at least 60oz/day, suggested he not have any fluid intake past 5pm -He will begin taking BP when he is feeling off/unwell; in addition will take postural BP AM and evening. He was able to repeat instructions re how to take orthostatic pressures. He will rtc to this office in a couple days or on Saturday to give prelim info. He is aware he can contact this office at any time w any questions/concerns * Telephone Encounter - Peyton Yañez RN - 02/27/2023 1019 EST Symptom Change / Status Update Informant: Power Gonzalez Symptom update: Falls: Had two falls, one on Saturday, slipped on wet grass in field. Saturday fixing breakfast, feltlight headed and fell down, forwards, denies hitting head, landed on elbow and hip. Had taken his selegiline and carbidopa/levodpa about 30 minutes prior. Never lost consciousness, was able to get up. Not visible bruising but has pain in left elbow and hip. 5/6 pain left arm when he bends his elbow. Dizziness: For the past two weeks has had about 1-2 dizziness spells every 3-4 days. Daily occurrence of feeling headache and slight fogginess. Blood pressure is generally around 130/85 when he checks. Brain fog--ebbs and flows, better in the evening comes on an hour after he wakes up after he takes his morning medications Jaw tightness--gets worse in morning and stays at low level throughout the day. Patient does not see an improvement after he takes medication. Interval changes in health status or other medications: CL 1 tablet 630/7am in morning 1 tablet at 2pm Selegiline 5mg tablet 730am 1 tablet 2pm fludicortisone .1mg tablet Melatonin at night Magnesium at night Aspirin at night Vitamins with breakfast Medication change: none Last encounter review/summary (relevant assessment/plan and patient instructions): From TC encounter on 01/31: I would still like to adjust the [...] to take it, he can stop it. Recommendations / Actions: Will route to Dr. Lackey to advise Neurology provider review requested PEYTON YAÑEZ RN 02/27/2023 10:19 * Telephone Encounter - Alicia Castanon - 02/25/2023 6113 EST Jim called because he had a fall this morning. He was standing making breakfast, got dizzy, light headed and fell. documented in this encounter Plan of Treatment Upcoming Encounters Date Type Department Care Team (Late st Contact Info) Description 12/05/2023 13:30 EDT Telemedicine [facility] Neurology [address] [id number] Aida Zaragoza MD [address] [place] [address] [phone] 01/15/2024 9:30 EDT Procedure visit [address] [id number] Aida Zaragoza MD [address] [place] [address] [phone] 01/27/2024 8:15 EDT Telemedicine [facility] Neurology - S [address] [phone] Nickie Zaragoza NP [address] [phone] 04/22/2024 8:30 EST Procedure visit [address] [phone] Aida Zaragoza MD [address] [place] [address] [phone] 07/23/2024 8:30 EDT Procedure visit [address] [phone] Aida Zaragoza MD [address] [place] [phone] documented as of this encounter Visit Diagnoses Diagnosis Nonintractable episodic headache, unspecified headache type- Primary documented in this encounter Care Teams Sap Bi Developer Relationship Specialty Start Date End Date Bernardo Nichols MD [address] [place] [address] PCP - General 06/10/17 documented as of this encounter
--- OUTSIDE RECORDS SUMMARY | 2023-11-13 12:56 | XMS_ITS | Encounter Summary ---
Author Organization [facility] Address [address] [place] [address] Care Team Providers Care Tag Stringer Name Role Phone Bernardo Nichols MD Primary Care Provider [phone] Reason for Visit * Reason Onset Date Comments Medication Questions 11/12/2023 Encounter Details Date Type Department Care Team (Late st Contact Info) Description 11/12/2023 Telephone [facility] Neurology - [address] [id number] Aida Zaragoza MD [address] [place] [address] Level 2 [place] [address] Medication Questions Social History Tobacco [...] Telephone Encounter - Aleah Salvador RN - 11/12/[address] Lackey: I think that would be reasonable to try the intermediate dose that he suggested. See how things go on and then we can increase or decrease from there. Reviewed above with Jim, he will increase AM dose of Carbidopa Levodopa to 2 tablets, midday and evening dose will remain at 1 tablet. He will call or send [employer] message with an update early next week. * Telephone Encounter - Vanesa Ruelas RN - 11/12/2023 1101 EDT Recent Rytary dose changes; Prev on 1 tab TID w increase to two tabs TID but d/t SE returned to prev dose. Wm reports since returning to One tab three times daily he has had increase in loss of balance, fatigue and tremors in L hand he is asking if he should Change dose to give 2 in AM, one mid day and one at night He is aware someone will rtc to him once feedback rec'd from provider * Telephone Encounter - Sera Segovia - 11/12/2023 1002 EDT Patient is calling to ask a question about his carbidopa-levodopa (SINEMET) 25-100 mg per tablet His question is dosage related and would like a call to advise. [phone] documented in this encounter Plan of Treatment Upcoming Encounters Date Type Department Care Team (Late st Contact Info) Description 12/05/2023 13:30 EDT Telemedicine [address] [id number] Aida Zaragoza MD [address] [place] [address] [phone] 01/15/2024 9:30 EDT Procedure visit [address] [id number] Aida Zaragoza MD [address] [place] [address] [phone] 01/27/2024 8:15 EDT Telemedicine [address] [id number] Nickie Zaragoza NP [address] [place] [address] [phone] 04/22/2024 8:30 EST Procedure visit [address] 927171 Aida Zaragoza MD [address] [place] [address] [phone] 07/23/2024 8:30 EDT Procedure visit [address] [id number] Aida Zaragoza MD [address] [place] [address] [phone] documented as of this encounter Visit Diagnoses Not on filedocumented in this encounter Care Teams Tag Stringer Relationship Specialty Start Date End Date Bernardo Nichols MD [address] [place] [address] PCP - General 06/10/17 documented as of this encounter
--- OUTSIDE RECORDS SUMMARY | 2023-11-13 12:56 | XMS_ITS | Encounter Summary ---
Author Organization [facility] Address [address] [place] [address] Care Team Providers Care Topstitcher Zigzag Name Role Phone Bernardo Nichols MD Primary Care Provider [phone] Reason for Visit * Reason Onset Date Comments New/Evolving Symptoms 11/08/2023 Encounter Details Date Type Department Care Team (Late st Contact Info) Description 11/08/2023 Telephone [facility] Neurology - [place] [address] [place] [address] [phone] Aida Zaragoza MD [address] [place] [address] Level 2 [place] [address] New/Evolving Symptoms Social History Tobacco [...] encounter Miscellaneous Notes * Telephone Encounter - Karen Swartz RN - 11/08/2023 1330 EDT Images from the original note were not included. Returned call to patient to discuss below recommendations/ options from Dr. Zaragoza: Aida Zaragoza MD P Neuro Move Complaint Evaluation Supervisor Okay, he can either stop it and we can try increasing the amantadine (2 capsules in the morning, 1 capsule in the afternoon), or can continue taking it (or regular Sinemet) and we can plan to add injections to the jaw. I could try to get him in sooner than three months to do those injections if he doesn't want to wait for the next visit, but I still have to get insurance approval so it likely wouldn't be for a couple of weeks. Patient states he would like to just continue taking 1 Rytary tid for now before considering offered options. Routing to Dr. Zaragoza for review. * Telephone Encounter - Karen Swartz RN - 11/08/2023 1108 EDT Reason for call: Jaw tightening after restarting Rytary Patient reports he started taking Rytary 2, 95mg capsules TID yesterday. Patient reports he had jawtightening around 1 pm after a dose and again at 7pm after his third dose. Patient states jaw tightening improved overnight but returned in am even though he decreased his am rytary dose to 1pill. Per recent LESLY 11/07/23 Dr. 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 * Telephone Encounter - Leanne Vivar - 11/08/2023 0906 EDT Jim calls in regards to rx restart Rytary 95mg capsules He is wondering if this needs to be decreased because he is experiencing jaw tightening. Please reach out to Jim to discuss. documented in this encounter Plan of Treatment Upcoming Encounters Date Type Department Care Team (Late st Contact Info) Description 12/05/2023 13:30 EDT Telemedicine [facility] Neurology [address] [phone] Aida Zaragoza MD [address] [place] [address] [phone] 01/15/2024 9:30 EDT Procedure visit [facility] Neurology [address] [id number] Aida Zaragoza MD [address] [place] [address] [phone] 01/27/2024 8:15 EDT Telemedicine [address] [phone] Nickie Zaragoza NP [address] [place] [address] [phone] 04/22/2024 8:30 EST Procedure visit [facility] Neurology S [address] [id number] Aida Zaragoza MD [address] [place] [address] [address] [place] [phone] 07/23/2024 8:30 EDT Procedure visit [facility] Neurology S [address] [id number] Aida Zaragoza MD [address] [place] [phone] documented as of this encounter Visit Diagnoses Not on filedocumented in this encounter Care Teams Topstitcher Zigzag Relationship Specialty Start Date End Date Bernardo Nichols MD [address] [place] [address] PCP - General 06/10/17 documented as of this encounter
--- OUTSIDE RECORDS SUMMARY | 2023-11-13 12:56 | XMS_ITS | Encounter Summary ---
Author Organization [facility] Address [address] [place] [address] Care Team Providers Care Environmental Engineering Aide Name Role Phone Bernardo Nichols MD Primary Care Provider [phone] Reason for Referral * Medication Prior Authorization (Routine/Next Available) - New Request Specialty Diagnoses / Procedures Referred By Contac t Referred To Contact Neurology Diagnoses Focal dystonia Jaw dyskinesia Procedures SD INCOBOTULINUMTOXIN A SD CHEMODNRVTJ MUSC MUSC INNERVATED FACIAL NRV UNIL SD NEEDLE EMG GUID W/CHEMODENERVATION Aida Zaragoza MD [address] [place] [phone] Aida Zaragoza MD [address] [place] [phone] Referral ID Status Reason Start Date Expiration Date Visits Requested Visits Authorized [id number] New Request Medication Prior Authorization 4 4 4 Question Answer What is the medication to be prior authorized? Xeomine (J0588) What is the medication dose? up to 100 units What is the medication frequency? q 12 weeks Additional notes for scheduling/prior authorization staff: EMG-guided for FOCAL DYSTONIA (CPT 23310) Comments The purpose of this request is to inform precertification staff that the requested service needs to be reviewed for prior-authorization. Please note that this is a separate request for a different indication. Please maintain separate approval for sialorrhea (CPT [id number]) dated 08/04/2023 Reason for Visit * Reason Comments Procedure xeomin * Prior Authorization (Routine/Next Available) - Authorization Not Required Specialty Diagnoses / Procedures Referred By Contartem t Referred To Contact Neurology Diagnoses Focal dystonia Jaw dyskinesia Sialorrhea Procedures SD CHEMODENERV PAROTID&SUBMANDIBL SALIVARY GLNDS SD INCOBOTULINUMTOXIN A Aida Zaragoza MD [address] [place] [phone] Aida Zaragoza MD [address] [place] [phone] Referral ID Status Reason Start Date Expiration Date Visits Requested Visits Authorized [id number] Authorization Not Required Medication Prior Authorization 08/04/19 24 08/03/2024 4 4 Encounter Details Date Type Department Care Team (Latest Contact Info) Description 11/07/2023 8:30 EDT Procedure visit [facility] Neurology - S [address] [address] Aida Zaragoza MD [address] [place] [phone] 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 [...] * Patient Instructions* Aida Zaragoza MD - 11/07/2023 8:30 EDT - continue amantadine twice a day - continue selegiline once a day - but move to the morning - add back the Rytary - 2 capsules 3 times per day (7am / 12-1:30pm / 7pm) - keep track of any improvement in tremor, walking, stiffness, slowness of movement - watch out for any of the involuntary jaw movements or any other side effects that are bothersome to you - we will see each other via Telehealth in about a month to check in, but call or message sooner with any updates documented in this encounter Progress Notes * Aida Zaragoza MD - 11/07/2023 0830 EDT Images from the original note were not included. Type of visit: Follow-up visit Clinician Requesting Consultation: Tramaine Mejia MD [address] [place] [address], Level 2 [place] [phone] Primary Pastry Artist: Bernardo Minaya [facility] [id number] ASSESSMENT & PLAN / RECOMMENDATIONS 1. 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 Focal dystonia 3. Jaw dyskinesia 4. Sialorrhea 5. Restless legs syndrome (RLS) Jim Gonzalez is a 78 y.o. gentleman who returns to the [facility] Movement Disorders clinic for evaluation and management of parkinsonism and other neurological symptoms. He was first evaluated for potential parkinsonism in 2019 via Telehealth, and started on carbidopa-levodopa at a subsequent visit in early 2020. It is unclear if the medication has been helpful to date, however dosehas been limited due to side effects. 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 There are no clear signs of an atypical disorder, though he does have some hypometric saccades and decreased excursions when gazing upward. No other features that would be concerning for PSP or any other parkinsonian disorder at this time, as his cognition seems grossly intact and he is not experiencingany falls. We agreed to restart Rytary to see if this might have a positive effect on symptoms in conjunction with selegiline and amantadine, without causing the adverse effects experienced with Sinemet. - continue selegiline 5mg tablets: 1 tablet daily (move to the morning) - continue amantadine 100mg capsules: 1 capsule twice daily - restart Rytary 95mg capsules: 2 capsules [...] daytime in addition to Xeomin injections. He felt that the last injections provided some benefit, so will increase the dosage again today. - Xeomin injections performed today for sialorrhea, [...] Presenting Illness (HPI): Jim Gonzalez is a 78 y.o. gentleman who was referred to the [...] months - started on gabapentin. Interval history: We adjusted medications to try to help lessen the jaw dyskinesia, since that was very bothersome to him. He is not currently taking levodopa, says he is taking one selegiline a day in the evening, and is taking the amantadine twice daily. He says the jaw dyskinesia rarely happen, but he doesn't think the medication has been helpful. He feels slower, shakier. He continues to haveheadaches on a frequent basis, met with Dr Escamilla earlier this week and she asked him to keep track of headache days and use sumatriptan as needed. He tried it a couple of times and thinks it helped, but not more than his typical OTC meds. Last injections: Date: 07/24/2023 Benefit: Helped some this time around Side effects: Denies ROS: A comprehensive 13 [...] Outpatient Medications Marked as Taking for the 11/07/23 encounter (Procedure visit) with Aida Zaragoza MD Medication Sig Dispense Refill amantadine HCL (SYMMETREL) 100 mg capsule Take 1 Capsule by mouth 2 times daily. 60 Capsule 3 apixaban (ELIQUIS) 5 mg tablet Take 1 Tablet by mouth 2 times daily. cholecalciferol, Vitamin D3, 1,000 unit tablet Take 5 Tablets by mouth daily. cyanocobalamin (VITAMIN B-12) 500 mcg tablet Take 1 Tablet by mouth daily. MAGNESIUM ORAL Take 1,000 mg by mouth. 2 500 MG TABS MELATONIN ORAL Take 3 mg by mouth at bedtime. OMEGA-3 330 MG-DHA AND EPA 300 MG-ALGAL OIL 600 MG CAPSULE 3,200 mg daily. selegiline (ELDEPRYL) 5 mg tablet Take 1 Tablet by mouth 2 times daily. (Patient taking differently: Take 1 Tablet by mouth daily.) 180 Tablet 3 SUMAtriptan (IMITREX) 25 mg tablet Take 1 Tablet by mouth daily as needed for Migraine. May take 2 if needed. May repeat dose after 2 hours, Limit 100 mg per 24 hours and 2 treatment days per week. 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 Slight decreased in spontaneous movements in the upper extremities Repetitive movements show slight decrease in speed and amplitude on the left > right UPDRS-III Motor Examination Section Factor Score 18 Speech 2 -Monotone, slurred but understandable. Moderately impaired. 19 Facial expression 3 -Moderate hypomimia. Lips parted some of the time. 20 Tremor at rest: Face, lips, chin 0 -Absent. Hands: right 0 -Absent. Hands: left 2 -Mild in amplitude and persistent. Or moderate in amplitude, but only intermittently present. Feet: right 0 -Absent. Feet: left 0 -Absent. 21 Action tremor: right 1 -Slight. Present with action. left 2 -Moderate in amplitude, present with action. 22 Rigidity: Neck 0 -Absent. Upper extremity: right 0 -Absent. Upper extremity: left 0 -Absent. Lower extremity: right 0 -Absent. Lower extremity: left 0 -Absent. 23 Finger taps: right 1 -Mild slowing and/or reduction in amplitude. Finger taps: left 2 -Moderately impaired. Definite and early fatiguing. May have occasional arrestsin movement. 24 Hand wire insulator: right 0 -Normal. Hand wire insulator: left 1 -Mild slowing and/or reduction in amplitude. 25 Hand pronate/supinate: right 1 -Mild slowing and/or reduction in amplitude. left 2 -Moderately impaired. Definite and early fatiguing. May have occasional arrests in movement. 26 Leg agility: right 1 -Mild slowing and/or reduction in amplitude. left 2 -Moderately impaired. Definite and early fatiguing. May have occasional arrests in movement. 27 Arise from chair 1 -Slow, or may need more than one attempt. 28 Posture 2 -Moderately stooped posture, definitely abnormal. Can be slightly leaning to one side. 29 Gait 1 -Walks slowly, may shuffle with short steps, but no festination (hastening steps) or propulsion. 30 Postural stability 1 -Retropulsion, but recovers unaided. 31 Body bradykinesia 2 -Mild degree of slowness and poverty of movement which is definitely abnormal. Alternatively, some reduced amplitude. Sec 18 to 31 total: 27 He is able to rise from a [...] the procedure. Informed consent was obtained on 11/07/2023 after discussing potential benefits, alternative treatments, consequences [...] R Parotid 2 100 / 1 mL 0.30 60 R Parotid 2 100 / 1 mL 0.30 60 R Submandibular 1 100 / 1 mL 0.30 30 L Submandibular 1 100 / 1 mL 0.30 30 TOTAL USED 180 UNITS WASTED 20 Vial 1-2: Xeomin 100 unit vial [[facility] 2850-5971-62] Lot #: [id number] Exp: 03/2025 The patient tolerated the procedure well. There were no immediate complications. In addition to performing injections, I spent a total of 30 minutes on the date of this encounter meeting with the patient and reviewing documentation/coordinating care as described in the above note. Time dedicated to this visit was spent on the following activities: Patient/manager progressive care education Review of the pertinent information in the electronic health record Care plan formulation Supportive counseling Scanned health information available from the referring and/or primary provider(s) Aida Fermin MD Attending Physician, Movement Disorders Department of Neurology documented in this encounter Miscellaneous Notes * Addendum Note - Aida Zaragoza MD - 11/07/2023 0830 EDTAddended by: AIDA FERMIN on: 11/12/2023 14:45 Modules accepted: Orders documented in this encounter Plan of Treatment Upcoming Encounters Date Type Department Care Team (Late st Contact Info) Description 12/05/2023 13:30 EDT Telemedicine [facility] Neurology S [address] [id number] Aida Zaragoza MD [address] [place] [address] [phone] 01/15/2024 9:30 EDT Procedure visit [facility] Neurology S [address] [id number] Aida Zaragoza MD [address] [place] [address] [phone] 01/27/2024 8:15 EDT Telemedicine [facility] Neurology [address] [id number] Nickie Zaragoza NP [address] [place] [address] [phone] 04/22/2024 8:30 EST Procedure visit [address] [id number] Aida Zaragoza MD [address] [place] [address] [phone] 07/23/2024 8:30 EDT Procedure visit [address] [id number] Aida Zaragoza MD [address] [place] [address] [phone] Scheduled Referrals Name Type Priority Associated Diagnoses Order Schedule AMB CONS/FOLLOW UP CLINIC ADMIN MED PRIOR AUTHORIZATION REQUEST Outpatient Referral Routine/Next Available Focal dystonia Jaw dyskinesia Expected: 12/13/2023 (Approximate), Expires: 11/11/2024 documented as of this encounter Visit Diagnoses Diagnosis 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
--- OUTSIDE RECORDS SUMMARY | 2023-11-13 12:56 | XMS_ITS | Encounter Summary ---
Author Organization [facility] Address [address] [place] [address] Care Team Providers Care Branch Manager Name Role Phone Bernardo Nichols MD Primary Care Provider [phone] Reason for Visit * Reason Onset Date Comments Appointment Related 10/03/2023 Encounter Details Date Type Department Care Team (Late st Contact Info) Description 10/03/2023 Telephone [facility] Neurology - S [address] [phone] Aida Zaragoza MD [address] [place] [address] Level 2 [place] [phone] Appointment Related Social History Tobacco [...] * Telephone Encounter - Mariana Simpson - 10/03/2023 0955 EDT Called and spoke with Jim and asked if we could move his FUR TVD with Dr.Deuel Zaragoza from September at 1:00 pm to Sunday, October 08, 2023 at 1:00 pm due to the provider's schedule and he was fine with that. Thank you documented in this encounter Plan of Treatment Upcoming Encounters Date Type Department Care Team (Late st Contact Info) Description 12/05/2023 13:30 EDT Telemedicine [facility] Neurology S [address] [id number] Aida Zaragoza MD [address] [place] [address] [phone] 01/15/2024 9:30 EDT Procedure visit [facility] Neurology S [address] [id number] Aida Zaragoza MD [address] [place] [address] [phone] 01/27/2024 8:15 EDT Telemedicine [facility] Neurology S [address] 550371 Nickie Zaragoza NP [address] [place] [address] [phone] 04/22/2024 8:30 EST Procedure visit [facility] Neurology S [address] [id number] Aida Zaragoza MD [address] [place] [address] [address] [place] [phone] 07/23/2024 8:30 EDT Procedure visit [facility] Neurology S [address] [id number] Aida Zaragoza MD [address] [place] [phone] documented as of this encounter Visit Diagnoses Not on filedocumented in this encounter Care Teams Branch Manager Relationship Specialty Start Date End Date Bernardo Nichols MD [address] [place] [address] PCP - General 06/10/17 documented as of this encounter
--- OUTSIDE RECORDS SUMMARY | 2023-11-13 12:56 | XMS_ITS | Encounter Summary ---
Author Organization [facility] Address [facility] [place] [address] Care Team Providers Care Surgical Asst Name Role Phone Bernardo Nichols MD Primary Care Provider [phone] Encounter Details Date Type Department Care Team (Late st Contact Info) Description 01/14/2018 10:30 AM EDT - 01/14/2018 11:30 AM EDT Surgery [place] [address] Teoodro Valdovinos MD [facility] [place] [address] CARDIAC CATHETERIZATION Social History Tobacco Use Types Packs/Day Years [...] Sign Reading Time Taken Comments Blood Pressure 190/93 01/14/2018 10:16 AM EDT Pulse 58 01/14/2018 10:10 AM EDT Temperature 36.2 ??C (97.2 ??F) 01/14/2018 10:10 AM E DT Respiratory Rate 18 01/14/2018 10:10 AM EDT Oxygen Saturation 96% 01/14/2018 10:10 AM EDT Inhaled Oxygen Concentration - - Weight 87.5 kg (193 lb) 01/14/2018 10:10 AM EDT Height 177.8 cm (5' 10) 01/14/2018 10:10 AM EDT Body Mass Index 27.68 01/14/2018 [...] by your doctor, do not take any epve-sfa-xbfehuq medicines or herbal preparations without first discussing this with your doctor or pharmacist. There is the possibility of side effect and interactions when these are combined. Follow up Care Who to Call with Questions or Problems If there are any questions or problems that you think might be related to your cardiac cath or angioplasty, contact the group home counselor cushion filler by calling [facility] at . 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 May need help with bathing and dressing. [...] (Bezet) 388 ms MUSE SYSTEM Calculated P [place] 50 degrees MUSE SYSTEM Calculated R [place] -47 degrees MUSE SYSTEM Calculated T [place] -7 degrees MUSE SYSTEM INTERPRETATION Sinus bradycardia Left anterior fascicular block Abnormal ECG No previous ECGs available Confirmed by MD Elena, Alexis Ann ([id number]) on 01/14/2018 9:18:48 PM MUSE SYSTEM 01/14/2018 [...] MAR Action Action Date Dose Rate Site fentaNYL 50 mcg/mL multi-dose injection ONCE PRN, Starting on Sat01/14/18 at 1403, Until Sat01/14/18 at 1522, Intra-Operative (Intra-Procedure), Routine Given 01/14/2018 3:01 PM EDT 25 mcg Given 01/14/2018 2:40 PM EDT 12.5 mcg Given 01/14/2018 2:03 PM EDT 25 mcg heparin (porcine) injection ONCE PRN, Starting on Sat01/14/18 at 1410, Until Sat01/14/18 at 1522, Cath (Intra-Procedure), Routine Given 01/14/2018 3:05 PM EDT 2,500 Units Given 01/14/2018 2:10 PM EDT 5,000 Units iohexol (OMNIPAQUE) 350 mg/mL solution ONCE PRN, Starting on Sat01/14/18 at 1521, Until Sat01/14/18 at 1522, Cath (Intra-Procedure), Routine Given 01/14/2018 3:21 PM EDT 110 mLs lidocaine (XYLOCAINE) 10 mg/mL (1 %) injection 3 mg 3 mg (0.3 mL), Subcutaneous, ONCE PRN, 1 dose, Starting on Sat01/14/18 at 1015, Until Sat01/14/18 at 2101, with discomfort with PIV insertion, Cath (Day of Procedure), Routine lidocaine (XYLOCAINE) 10 mg/mL (1 %) injection ONCE PRN, Starting on Sat01/14/18 at 1401, Until Sat01/14/18 at 1522, Cath (Intra-Procedure), Routine Given 01/14/2018 2:01 PM EDT 5 mLs midazolam (PF) (VERSED) 1 mg/mL multi-dose injection ONCE PRN, Starting on Sat01/14/18 at 1403, Until Sat01/14/18 at 1522, Cath (Intra-Procedure), Routine Given 01/14/2018 3:01 PM EDT 1 mg Given 01/14/2018 2:40 PM EDT 0.5 mg Given 01/14/2018 2:03 PM EDT 1 mg nitroGLYcerin 100 mcg/mL intracoronary dilution ONCE PRN, Starting on Sat01/14/18 at 1407, Until Sat01/14/18 at 1522, Cath (Intra-Procedure), Routine Given 01/14/2018 3:07 PM EDT 250 mcg Given 01/14/2018 2:07 PM EDT 150 mcg sodium chloride 0.9 % flush 5 mL [...] PM EDT 150 mL/hr 150 mL /hr verapamil (ISOPTIN) injection ONCE PRN, Starting on e 01/14/18 at 1407, Until Sat01/14/18 at 1522, Administer over 2 Minutes, Cath (Intra-Procedure) Given 01/14/2018 2:07 PM EDT 2.5 mg documented in this encounter Active and Recently [...] Unit) 1540 (New Bag - Prov ider: Aleah Herrmann RN) PRN Medication Order 01/12/2018 01/13/2018 01/14/2018 atropine injection 1 mg 1 mg, Intravenous, Administer over 4 Hours, EVERY 5 MIN PRN, 2 doses, Starting on e 01/14/18 at 1533, Until 01/14/18 at 2101, Other, vasovagal episode, Call interventional MDElvira, Cath (Recovery-Hospital Unit), Routine fentaNYL (PF) 50mcg/mL injection 25 mcg, Intravenous, Administer over 4 Hours, EVERY 30 MIN PRN, 4 doses, Starting on e 01/14/18 at 1533, Until 01/14/18 at 2101, Pain, sheath removal, May repeat once while in Cath Recovery Unit, Cath (Recovery-Hospital Unit), Routine fentaNYL 50 mcg/mL multi-dose injection (CANCELED) ONCE PRN, Starting on 01/14/18 at 1403, Until 01/14/18 at 1522, Intra-Operative (Intra-Procedure), Routine 1403 (Given [...] Teodoro Valdovinos MD - Comment: Contrast in [employer]) lidocaine (XYLOCAINE) 10 mg/mL (1 %) injection 3 mg 3 mg (0.3 mL), Subcutaneous, ONCE PRN, 1 dose, Starting on 01/14/18 at 1015, Until Tue 18 at 2101, with discomfort with PIV insertion, [...] Routine 1403 (Given - Provid er: Leatha C Leidinger, RN)1440 (Given - Provider: Leatha Morales, HALLE)1501 (Given - Provider: Aileen Archibald, HALLE) nitroGLYcerin 100 mcg/mL intracoronary dilution (CANCELED) ONCE [...] Protocol) documented in this encounter Care Teams Surgical Asst Relationship Specialty Start Date End Date Bernardo Nichols MD [address] [place] [id number] PCP - General General Internal Medicine 01/10/18 documented as of this encounter
--- OUTSIDE RECORDS SUMMARY | 2023-11-13 12:56 | XMS_ITS | Encounter Summary ---
Author Organization [facility] Address [address] [place] [address] Care Team Providers Care Imagery Analyst Name Role Phone Bernardo Nichols MD Primary Care Provider [phone] Reason for Visit * Reason Onset Date Comments Appointment Related 04/25/2023 Encounter Details Date Type Department Care Team (Late st Contact Info) Description 04/25/2023 Telephone [facility] Neurology - S [address] [phone] Aida Zaragoza MD [address] [place] [address] Level 2 [place] [address] Appointment Related Social History Tobacco [...] encounter Miscellaneous Notes * Telephone Encounter - Riley Smith - 04/25/2023 1030 EST Jim calls in to confirm upcoming procedure appts with Dr. Lackey. documented in this encounter Plan of Treatment Upcoming Encounters Date Type Department Care Team (Late st Contact Info) Description 12/05/2023 13:30 EDT Telemedicine [facility] Neurology [address] [phone] Aida Zaragoza MD [address] [place] [address] [phone] 01/15/2024 9:30 EDT Procedure visit [facility] Neurology [address] [phone] Aida Zaragoza MD [address] [place] [address] [phone] 01/27/2024 8:15 EDT Telemedicine [facility] Neurology [address] [phone] Nickie Zaragoza NP [address] [place] [address] [phone] 04/22/2024 8:30 EST Procedure visit [facility] Neurology [address] [phone] Aida Zaragoza MD [address] [place] [address], [facility] [address] [place] [phone] 07/23/2024 8:30 EDT Procedure visit [facility] Neurology - S [address] [address] Aida Zaragoza MD [address] [place] [address] 2 [place] [address] documented as of this encounter Visit Diagnoses Not on filedocumented in this encounter Care Teams Imagery Analyst Relationship Specialty Start Date End Date Bernardo Nichols MD [address] [place] [address] PCP - General 06/10/17 documented as of this encounter
--- OUTSIDE RECORDS SUMMARY | 2023-11-13 12:57 | XMS_ITS | Encounter Summary ---
Author Organization [facility] Address [address] [place] [address] Care Team Providers Care Maintenance Parts Technician Name Role Phone Bernardo Nichols MD Primary Care Provider [phone] Reason for Visit * Reason Onset Date Comments New/Evolving Symptoms 03/01/2022 Encounter Details Date Type Department Care Team (Late st Contact Info) Description 03/01/2022 Telephone [facility] Neurology - S [place] [address] [place] [address] [id number] Aida Zaragoza MD [address] [place] [address] Level 2 [place] [address] New/Evolving Symptoms Social History Tobacco [...] Dispensed Refills Start Date End Da te ondansetron (ZOFRAN-ODT) 4 mg disintegrating tablet Take 1 Tablet by mouth every 8 hours as needed for Nausea. 21 Tablet 1 03/02/2022 methylPREDNISolone (MEDROL DOSEPACK) 4 mg tablet For migraine longer than 72 hours. Follow package directions. 1 Each 2 03/02/2022 04/19/2023 documented in this encounter Miscellaneous Notes * Telephone Encounter - Aleah Salvador RN - 03/02/2022 1613 EST Spoke with Jim, let him know that Dr. Lackey has sent through a medrol dose pack and that we recommend that he take the full days worth at the beginning of each day to reduce risk of causing difficulty with sleep, and to follow the taper down as per the bubble packs directions. He will do this. Also reviewed that Dr. Lackey has sent through a prescription for zofran that he can take as needed if the medrol causes him to feel nauseated. He was very appreciative of the quick turn around response from Dr. Lackey. * Telephone Encounter - Aleah Salvador RN - 03/02/2022 1541 EST Spoke with Jim, he reports that over the last couple days he has had a worsening headache. He states previous to the last few days his headache would move around on his head. The last few days ithas not moved but been stationary. He describes the pain as sharp and lightly throbbing, behind both eyes, and up over the top of his forehead. Yesterday the pain was about an 8-9/10, and today about a 7/10. He took 2 x 500 mg tylenol tablets once yesterday with no effect. Previously he has also tried Aleve or Ibuprofen. He again states without effect. He will try a single tablet of 1 each tylenol 500 mgand Aleve 220 mg to see if he gets any benefit from a combination of the two pain relievers. He denies any recent change in health history, he stopped Carbidopa Levodopa about a month ago, andnoticed no change in how he was feeling at that time. He also complains that for the last few weeks he has noticed that when he reads words or parts of sentences will sometimes disappear off the page before reappearing. The head pain will get a little better when he is laying down. He continues to feel fatigued but states that this is not new, and has not changed recently. He denies any new or changing weakness, no slur to his speech etc. I did recommend that if the pain gets worse, and is not alleviated by the tylenol/aleve he should seek care at a local urgent or emergent care center. * Telephone Encounter - Tammy Hickey - 03/02/2022 1316 EST Will would like to have an urgent call from DR Lackey senior air director . He called in and asked to read the previous encounter in order to remember Yesterday events . He is not doing well and hope to have a phone call . Thanks . * Telephone Encounter - Bhanu Jaimes - 03/01/2022 0856 EST Pt has had a bad headache since yesterday and the pt is having trouble thinking clearly. Gloria states that pt forgot how to use the washing machine this morning. Pt was not able to use the phone to call us and asked spouse to call. Taking all meds as directed. Pt has asked me to call his back, he was on speaker phone with her, use her phone. documented in this encounter Plan of Treatment Upcoming Encounters Date Type Department Care Team (Late st Contact Info) Description 12/05/2023 13:30 EDT Telemedicine [facility] Neurology S [address] [phone] Aida Zaragoza MD [address] [place] [address] [phone] 01/15/2024 9:30 EDT Procedure visit [address] [phone] Aida Zaragoza MD [address] [place] [address] [phone] 01/27/2024 8:15 EDT Telemedicine [address] [phone] Nickie Zaragoza NP [address] [place] [address] [phone] 04/22/2024 8:30 EST Procedure visit [address] 366021 Aida Zaragoza MD [address] [place] [address] [phone] 07/23/2024 8:30 EDT Procedure visit [address] 533721 Aida Zaragoza MD [address] [place] [address] [phone] documented as of this encounter Visit Diagnoses Not on filedocumented in this encounter Care Teams Maintenance Parts Technician Relationship Specialty Start Date End Date Bernardo Nichols MD [address] [place] [address] PCP - General 06/10/17 documented as of this encounter
--- OUTSIDE RECORDS SUMMARY | 2023-11-13 12:57 | XMS_ITS | Encounter Summary ---
Author Organization [facility] Address [address] [place] [address] Care Team Providers Care Equal Opportunity Officer Name Role Phone Bernardo Nichols MD Primary Care Provider [phone] Reason for Visit * Reason Onset Date Comments Appointment Related 05/03/2022 Encounter Details Date Type Department Care Team (Late st Contact Info) Description 05/03/2022 Telephone [facility] Neurology - S [address] [phone] Aida Zaragoza MD [address] [place] [address] Level 2 [place] [address] Appointment Related Social History Tobacco [...] Miscellaneous Notes * Telephone Encounter - Darlene Hansen - 05/03/2022 1649 EST Outreached JAYA FernandezMAIL to schedule a 2 MO FOLLOW UP TELEVIDEO appointment with Dr. Lackey in June. Schedule from the recall list. documented in this encounter Plan of Treatment Upcoming Encounters Date Type Department Care Team (Late st Contact Info) Description 12/05/2023 13:30 EDT Telemedicine [facility] Neurology S [address] [phone] Aida Zaragoza MD [address] [place] [phone] 01/15/2024 9:30 EDT Procedure visit [address] 096871 Aida Zaragoza MD [address] [place] [address] [phone] 01/27/2024 8:15 EDT Telemedicine [facility] Neurology [address] 261871 Nickie Zaragoza NP [address] [place] [address] [phone] 04/22/2024 8:30 EST Procedure visit [facility] Neurology S [address] 242641 Aida Zaragoza MD [address] [place] [phone] 07/23/2024 8:30 EDT Procedure visit [facility] Neurology S [address] [phone] Aida Zaragoza MD [address] [place] [address] [phone] documented as of this encounter Visit Diagnoses Not on filedocumented in this encounter Care Teams Equal Opportunity Officer Relationship Specialty Start Date End Date Bernardo Nichols MD [address] [place] [address] PCP - General 06/10/17 documented as of this encounter
--- OUTSIDE RECORDS SUMMARY | 2023-11-13 12:57 | XMS_ITS | Encounter Summary ---
Author Organization [facility] Address [address] [place] [address] Care Team Providers Care Federal Aid Coordinator Name Role Phone Bernardo Nichols MD Primary Care Provider [phone] Reason for Visit * Reason Onset Date Comments New/Evolving Symptoms 11/19/2022 Encounter Details Date Type Department Care Team (Late st Contact Info) Description 11/19/2022 Telephone [facility] Neurology - S [place] [address] [place] [address] [phone] Aida Zaragoza MD [address] [place] [address] Level 2 [place] [address] New/Evolving Symptoms Social History Tobacco [...] Telephone Encounter - Aleah Salvador RN - 11/22/[address] Lackey: would have him decrease down to 1 tablet with each dose (2-3 times per day) for a week or so and see what happens Passed on message to Jim, and he will make changes as directed. He will call back with an update in about a week. Sooner if needed. * Telephone Encounter - Aleah Salvador RN - 11/22/2022 1008 EDT Spoke with Jim. He reports that he thinks the Carbidopa Levodopa causes his jaw to feel as though it is being pushed forward, causing his speech to sound off. He reports he wakes in the morning and feels like he is doing well. Once he takes his morning dose of Carbidopa Levodopa 25/100 2 tablets, he will get a headache, and feel as though he is foggy headed. He will also begin to have the issue above with his jaw. He held his morning dose recently, and the jaw problem did not start until he took his midday dose. He usually skips his evening dose, because of how he is feeling, and is worried about it causing insomnia. Will forward to Dr. Lackey for review. * Telephone Encounter - Karissa Choudhury - 11/19/2022 1505 EDT Jim called today in regards a new issue he is having and he is not sure if it is a condition ofPD His bottom jaw is tightening and causing a lot of strain on his facial muscles. He said it has beengoing on for a few weeks Please reach out to discuss documented in this encounter Plan of Treatment Upcoming Encounters Date Type Department Care Team (Late st Contact Info) Description 12/05/2023 13:30 EDT Telemedicine [facility] Neurology [address] [phone] Aida Zaragoza MD [address] [place] [address] [phone] 01/15/2024 9:30 EDT Procedure visit [address] [phone] Aida Zaragoza MD [address] [place] [address] [phone] 01/27/2024 8:15 EDT Telemedicine [address] 321451 Nickie Zaragoza NP [address] [place] [address] [phone] 04/22/2024 8:30 EST Procedure visit [address] 917201 Aida Zaragoza MD [address] [place] [address] [phone] 07/23/2024 8:30 EDT Procedure visit [address] [phone] Aida Zaragoza MD [address] [place] [address] [phone] documented as of this encounter Visit Diagnoses Not on filedocumented in this encounter Care Teams Federal Aid Coordinator Relationship Specialty Start Date End Date Bernardo Nichols MD [address] [place] [address] PCP - General 06/10/17 documented as of this encounter
--- OUTSIDE RECORDS SUMMARY | 2023-11-13 12:57 | XMS_ITS | Encounter Summary ---
Author Organization [facility] Address [address] [place] [address] Care Team Providers Care Water Quality Tester Name Role Phone Bernardo Nichols MD Primary Care Provider [phone] Reason for Visit * Reason Onset Date Comments Medication Questions 02/09/2022 Encounter Details Date Type Department Care Team (Late st Contact Info) Description 02/09/2022 Telephone [facility] Neurology - S [address] 949251 Aida Zaragoza MD [address] [place] [address] Level 2 [place] [address] Medication Questions Social History Tobacco [...] Telephone Encounter - Emani Saeed RN - 02/13/2022 1427 EDT TC to Jim, relayed response from Dr. Lackey: No - If anything, we tend to use gabapentin to treat headaches, so less likely (though not impossible) to cause them. Also, if headaches were going on well before the gabapentin was started, then not likely to be the cause. We have a plan to taper off the levodopa - let's start there and see if things improve We can also have him taper off the gabapentin after that - again, wouldn't expect headaches to improve but at least would take away a medication that is not helping Patient verbalized understanding and has no further questions at this time. * Telephone Encounter - Emani Saeed RN - 02/13/2022 1050 EDT TC to Jim. He says that headaches and brain fog have been occurring for a long time, before he started gabapentin. He takes 300mg BID, at about 7:30am and 9pm. States there is not a time of day when symptoms are worst but that some evenings he does have a period where they clear up, prior to taking his 9pm dose. States that the gabapentin is not helping his RLS. We discussed that concern for gabapentin overdose is low because he is on a relatively low dose of the medication. Advised that message would be sent to Dr. Lackey to get her thoughts on it and that nursing will call patient back upon MD response. * Telephone Encounter - Bhanu Jaimes - 02/09/2022 1547 EDT Pt had an appointment yesterday and has had a question since then for the MD. Pt has questions about the meds GABEPENTIN. Pt is wondering if this is an overdosage of the GABEPENTIN and could it be causing the headaches. Pt would like to discuss if he should ween off these meds. gabapentin (NEURONTIN) 300 mg capsule documented in this encounter Plan of Treatment Upcoming Encounters Date Type Department Care Team (Late st Contact Info) Description 12/05/2023 13:30 EDT Telemedicine [facility] Neurology [address] [phone] Aida Zaragoza MD [address] [place] [address] [phone] 01/15/2024 9:30 EDT Procedure visit [address] 786851 Aida Zaragoza MD [address] [place] [address] [phone] 01/27/2024 8:15 EDT Telemedicine [address] [phone] Nickie Zaragoza NP [address] [place] [address] [phone] 04/22/2024 8:30 EST Procedure visit [address] 738691 Aida Zaragoza MD [address] [place] [address] [phone] 07/23/2024 8:30 EDT Procedure visit [facility] Neurology - S [place] [address] [place], [place] 217211 Aida Zaragoza MD [address] [place] [address], Level [address] [place] [phone] documented as of this encounter Visit Diagnoses Not on filedocumented in this encounter Care Teams Water Quality Tester Relationship Specialty Start Date End Date Bernardo Nichols MD [address] [place] [address] PCP - General 06/10/17 documented as of this encounter
--- OUTSIDE RECORDS SUMMARY | 2023-11-13 12:57 | XMS_ITS | Encounter Summary ---
Author Organization [facility] Address [address] [place] [address] Care Team Providers Care Wellness Manager Name Role Phone Bernardo Nichols MD Primary Care Provider [phone] Encounter Details Date Type Department Care Team (Late st Contact Info) Description 03/27/2022 Lab Requisition [facility] Pathology & Laboratory Medicine - [address] [address] Outr Resulting Lab, Provider Social History Tobacco Use Types Packs/Day Years Used Date Smoking Tobacco: Former Cigarettes 2 10 0 1969 Smokeless Tobacco: Never Alcohol Use Standard Drinks/Week [...] No 01/18/2022 Cognitive Status Response Date of Assess ent Because of a physical, menta l, or emotional condition, does this person have serious difficulty concentrating, remembering, or making decisions? No 01/18/2022 documented as of this encounter Plan of Treatment Upcoming Encounters Date Type Department Care Team (Late st Contact Info) Description 12/05/2023 13:30 EDT Telemedicine [facility] Neurology [address] [id number] Aida Zaragoza MD [address] [place] [address] [phone] 01/15/2024 9:30 EDT Procedure visit [address] [id number] Aida Zaragoza MD [address] [place] [address] [phone] 01/27/2024 8:15 EDT Telemedicine [address] [phone] Nickie Zaragoza NP [address] [place] [address] [phone] 04/22/2024 8:30 EST Procedure visit [address] [address] Aida Zaragoza MD [address] [place] [address] [phone] 07/23/2024 8:30 EDT Procedure visit [address] [address] Aida Zaragoza MD [address] [place] [address] [phone] documented as of this encounter Procedures Procedure Name Priority Date/Time Associated Diagnosis Comments HSV (HERPES SIMPLEX VIRUS) MOLECULAR DETECTION, PCR Routine 03/26/2022 20:18 EST documented in this encounter Results * HSV (HERPES SIMPLEX VIRUS) MOLECULAR DETECTION, PCR (03/26/2022 20:18 EST) Herpes Simplex Virus Molecular Detection 1, PCR Negative Negative 03/27/2022 23:51 EST [facility] Herpes Simplex Virus Molecular Detection 2, PCR Negative Negative 03/27/2022 23:51 EST [facility] Comment:This test was develo ped and its performance characteristics determined by [facility]. It has not been cleared or approved by the US Food and Drug Administration. FDA does not require this test to go through premarket FDA review. This test is used for clinical purposes. It should not be regarded as investigational or research. This laboratory is certified under the Clinical Laboratory Improvement Amendments (CLIA) as qualified to perform high complexity clinical laboratory testing. Fluid CEREBROSPINAL FLUID SPECIMEN / Unknown 03/26/2022 20:18 EST 03/27/2022 21:03 EST Provider Outr Resulting Lab MICROBIOLOGY - GENERAL ORDERABLES [facility] [address] [place] [address] documented in this encounter Visit Diagnoses Not on filedocumented in this encounter Care Teams Wellness Manager Relationship Specialty Start Date End Date Bernardo Nichols MD [address] [place] [address] PCP - General 06/10/17 documented as of this encounter
--- OUTSIDE RECORDS SUMMARY | 2023-11-13 12:57 | XMS_ITS | Encounter Summary ---
Author Organization [facility] Address [address] [place] [address] Care Team Providers Care Lead Systems Architect Name Role Phone Bernardo Nichols MD Primary Care Provider [phone] Reason for Visit * Reason Onset Date Comments Appointment Related 05/22/2022 Encounter Details Date Type Department Care Team (Late st Contact Info) Description 05/22/2022 Telephone [facility] Neurology - S [address] 986371 Aida Zaragoza MD [address] [place] [address] Level [address] [place] [phone] Appointment Related Social History Tobacco [...] * Telephone Encounter - Darlene Hansen - 05/22/2022 1325 EST Outreached Jim JAYA VOICEMAIL stating that the next appointment with Dr. Lackey will be on 06/21/2022 at 1:00 PM. 2 MO FUR TVD [place]: [phone] EMAIL: [email or web address] SCHEDULING NEEDED documented in this encounter Plan of Treatment Upcoming Encounters Date Type Department Care Team (Late st Contact Info) Description 12/05/2023 13:30 EDT Telemedicine [facility] Neurology [address] [id number] Aida Zaragoza MD [address] [place] [address] [phone] 01/15/2024 9:30 EDT Procedure visit [facility] [address] 177241 Aida Zaragoza MD [address] [place] [address] [phone] 01/27/2024 8:15 EDT Telemedicine [facility] [address] 274421 Nickie Zaragoza NP [address] [place] [address] [phone] 04/22/2024 8:30 EST Procedure visit [facility] - S [address] [phone] Aida Zaragoza MD [address] [place] [address] 2 [place] [phone] 07/23/2024 8:30 EDT Procedure visit [facility] [address] 753201 Aida Zaragoza MD [address] [place] [phone] documented as of this encounter Visit Diagnoses Not on filedocumented in this encounter Care Teams Lead Systems Architect Relationship Specialty Start Date End Date Bernardo Nichols MD [address] [place] [address] PCP - General 06/10/17 documented as of this encounter
--- OUTSIDE RECORDS SUMMARY | 2023-11-13 12:57 | XMS_ITS | Encounter Summary ---
Author Organization [facility] Address [address] [place] [address] Care Team Providers Care Senior Game Developer Name Role Phone Bernardo Nichols MD Primary Care Provider [phone] Reason for Visit * Reason Onset Date Comments Other 05/29/2022 Encounter Details Date Type Department Care Team (Late st Contact Info) Description 05/29/2022 Telephone [facility] Neurology - S [address] 184201 Aida Zaragoza MD [address] [place] [address] Level 2 [place] [phone] Other Social History Tobacco Use Types Packs/Day Years [...] tablet Take 1 Tablet by mouth daily for 7 days, THEN 1 Tablet 2 times daily with breakfast and lunch for 30 days. 67 Tablet 3 05/31/2022 07/07/2022 documented in this encounter Miscellaneous Notes * Telephone Encounter - Aida Zaragoza MD - 06/01/2022 1048 EST Closing this encounter and addressing in 05/04/2022 encounter * Telephone Encounter - Lesa Smith RN - 06/01/2022 1006 EST I put in the order for selegiline - it is 1 tablet daily x 1 week, followed by 1 tablet twice daily (morning and mid-day) after that. Side effects: dizziness, lightheadedness, nausea, insomnia (that's why the second dose should be mid-day and not bedtime) If I have it documented correctly, he should not currently be taking levodopa. He can take the selegiline on its own, do not need to add back levodopa. If for some reason he is taking levodopa, can take them together. Excessive salivation can be seen in PD - often the brain is not signaling the muscles to swallow frequently enough. There are a few options: - non-medication strategies: ??sucking on hard candies, drinking plenty of water - medications: atropine drops to put under the tongue, other medications that can help dry out the mouth - botulinum toxin injections The injections are easy and we would just have to ask insurance for approval if interested. Jim verbalized understanding and he states that he is interested in pursuing the Botox injections. He is interested in knowing if those could be done at the PCP office? I told him that I did not know, but would send the message on to Dr. Darya Zaragoza. * Telephone Encounter - Aida Zaragoza MD - 05/31/2022 5898 EST amos documented in this encounter Plan of Treatment Upcoming Encounters Date Type Department Care Team (Late st Contact Info) Description 12/05/2023 13:30 EDT Telemedicine [facility] Neurology [address] 176531 Aida Zaragoza MD [address] [place] [address] [phone] 01/15/2024 9:30 EDT Procedure visit [facility] Neurology S [address] 979631 Aida Zaragoza MD [address] [place] [address] [phone] 01/27/2024 8:15 EDT Telemedicine [address] 543551 Nickie Zaragoza NP [address] [place] [address] [phone] 04/22/2024 8:30 EST Procedure visit [address] 288431 Aida Zaragoza MD [address] [place] [address] [phone] 07/23/2024 8:30 EDT Procedure visit [facility] Neurology - S [place] [address] [place], [place] 530681 Aida Zaragoza MD [address] [place] [address], Level 2 [place] [phone] documented as of this encounter Visit Diagnoses Not on filedocumented in this encounter Care Teams Senior Game Developer Relationship Specialty Start Date End Date Bernardo Nichols MD [address] [place] [address] PCP - General 06/10/17 documented as of this encounter
--- OUTSIDE RECORDS SUMMARY | 2023-11-13 12:57 | XMS_ITS | Encounter Summary ---
Author Organization [facility] Address [address] [place] [address] Care Team Providers Care Auto Emissions Technician Name Role Phone Bernardo Nichols MD Primary Care Provider [phone] Encounter Details Date Type Department Care Team (Late st Contact Info) Description 03/29/2022 Lab Requisition [facility] Pathology & Laboratory Medicine - [address] [address] Outr Resulting Lab, Provider Social History Tobacco [...] Contact Info) Description 12/05/2023 13:30 EDT Telemedicine [facility] Neurology [address] 243661 Aida Zaragoza MD [address] [place] [address] [phone] 01/15/2024 9:30 EDT Procedure visit [address] 253461 Aida Zaragoza MD [address] [place] [address] [phone] 01/27/2024 8:15 EDT Telemedicine [address] 973971 Nickie Zaragoza NP [address] [place] [address] [phone] 04/22/2024 8:30 EST Procedure visit [address] [address] Aida Zaragoza MD [address] [place] [address] [phone] 07/23/2024 8:30 EDT Procedure visit [address] [address] Aida Zaragoza MD [address] [place] [address] [phone] documented as of this encounter Procedures Procedure Name Priority Date/Time Associated Diagnosis Comments C REACTIVE PROTEIN Routine 03/29/2022 16 :28 EST documented in this encounter Results * C REACTIVE PROTEIN (03/29/2022 16:28 EST) C-Reactive Protein <7.0 <10.0 mg/L 03/29/2022 22:00 EST [facility] Blood VENOUS BLOOD / Unknown 03/29/2022 16:28 EST 03/29/2022 21:34 EST Provider Outr Resulting Lab CHEMISTRY & BLOOD GAS ORDERABLES Performing Organization Address City/State/[facility] Co de Phone Number [facility] [address] [place] [address] documented in this encounter Visit Diagnoses Not on filedocumented in this encounter Care Teams Auto Emissions Technician Relationship Specialty Start Date End Date Bernardo Nichols MD [address] [place] [address] PCP - General 06/10/17 documented as of this encounter
--- OUTSIDE RECORDS SUMMARY | 2023-11-13 12:57 | XMS_ITS | Encounter Summary ---
Author Organization [facility] Address [address] [place] [address] Care Team Providers Care Tool Turret Lathe Set Up Operator Name Role Phone Bernardo Nichols MD Primary Care Provider [phone] Reason for Referral * PT/OT/ST (Routine/Next Available) - Closed Specialty Diagnoses / Procedures Referred By Nikhil t Referred To Contact Diagnoses Pain of right upper extremity Dwight Munoz PA-C [address] [place] [address] [place] [address] Referral ID Status Reason Start Date Expiration Date V isits Requested Visits Authorized [id number] Closed Specialty Services Required 01/18/2022 1 1 Question Answer Reason for Request: Pain of right upper extremity/shoulder; it could be radicular vs pain due to shoulder pathology or both. Comments [facility] twice/week for 8 weeks Dwight Munoz PA-C Reason for Visit * Reason Comments Pain * Consult (See Order Priority) - Authorization Not Required Specialty Diagnoses / Procedures Referred By Contartem t Referred To Contact Orthopedic Surgery Diagnoses Cervical radiculopathy Aida Zaragoza MD [address] [place] [address], Level 2 [place] [address] [facility] Spine [address] [place] [address] Referral ID Status Reason Start Date Expiration Date Visits Requested Visits Authorized [id number] Authorization Not Required Specialty Services Required 2 1 1 Encounter Details Date Type Department Care Team (Late st Contact Info) Description 01/18/2022 13:00 EDT Office Visit [facility] Spine Program - [place] [address] [place] [address] Dwight Munoz PA-C [address] [facility] [place] [address] Pain of right upper extremity (Primary Dx) Social History Tobacco Use Types Packs/Day Years Used Date Smoking Tobacco: Former Cigarettes 2 10 1969 Smokeless Tobacco: Never Alcohol Use Standard [...] Sign Reading Time Taken Comments Blood Pressure - - Pulse - - Temperature - - Respiratory Rate - - Oxygen Saturation - - Inhaled Oxygen Concentration - - Weight 81.2 kg (179 lb) 01/18/2022 1259 EDT Height 180.3 cm (5' 11) 01/18/2022 1259 EDT Body Mass Index 24.97 01/18/2022 1259 EDT documented in this encounter Functional Status Functional [...] as of this encounter Progress Notes * Dwight Munoz PA-C - 01/18/2022 1300 EDT Mr. Gonzalez is a 76 y.o. pleasant male who presents to the clinic today, 01/18/2022, with 1. 100% RUE pain affecting: A. ARM: lateral and proximal aspect. Numbness/tingling as well B. H/o Parkinson's disease. ONSET: This is a chronic issue that has been present since 2017. Has worsened over the last year. Pain is worse at night and in the morning and does not last more than 5 minutes. Symptoms wax and wane, but they are present everyday. ALLEVIATING FACTORS: . AGGRAVATING FACTORS: lying down. PAIN: 8/10. CONSERVATIVE TX: 1. Physical Therapy: YES, did not help. 2. CHIRO: NO. 3. Steroid injections: NONE. 4. Medications: Tylenol - somewhat helpful. SOCIAL: 1. SMOKING: Former. 2. WORK: retired. 3. Patient lives with his . Review of Systems Constitutional: Positive for activity change. Negative for unexpected weight change. Eyes: Negative for visual disturbance. Respiratory: Negative for chest tightness. Gastrointestinal: Negative for constipation. Genitourinary: Negative for difficulty urinating. Musculoskeletal: Positive for neck pain. Occasionally positive for low back pain. Skin: Negative for rash. Neurological: positive for numbness. Psychiatric/Behavioral: Negative for agitation and behavioral problems. Physical Exam Constitutional: Patient is oriented to person, place, and time, and appears well-developed and well-nourished. Eyes: EOM are normal. Pupils are equal, round, and reactive to light. Cardiovascular: Normal rate. Pulmonary/Chest: Effort normal and breath sounds normal. Neurological: Patient is alert and oriented to person, place, and time. Skin: Skin is warm and dry. No rash noted. Psychiatric: Patient has a normal mood and affect, and behavior is normal. Family and Social History: Reviewed. Neck Exam from initial visit in 01/18/2022: RASHES AND MECHELLE: NEG. FROM: TENDERNESS ON PALPATION: NEG. STRENGTH: 5/5. REFLEXES: 2/4. SENSATION:Intact. SPURLING'S: NEG. MAYS: NEG. RADIAL PULSE: 2/2. TINNEL: NEG. PHALEN: NEG. ULNAR COMPRESSION: NEG. Neer Impingement test: POS Gupta maneuver: POS Subscapularis lift off test: POS Today, 01/18/2022, I independently reviewed the following radiographs: Cervical MRI from prior work up in June 2020: C3-C4: No spinal canal stenosis. Moderate bilateral neuroforaminal narrowing due to uncovertebral spurring and facet arthropathy. ?? C4-C5: Minimal circumferential disc bulge and ligamentum flavum thickening without significant spinal canal stenosis. Moderate right and mild left neuroforaminal narrowing due to uncovertebral spurring and facet arthropathy. Assessment: 76 y.o. male with 1. right UE pain along the C5 dermatome most likely radicular in nature vs pain secondary to pathology intrinsic to the shoulder. On PE, there was a positive response. He has agreed to the following plan. Plan: [facility] PT twice/week X 8 weeks. Continue with in-home exercise program. Continue activity as tolerated. Phone FU in 2 months - if no improvement, proceed with right intraarticular shoulder injection and if no relief, C5-C6 SAWYER. CC: Dr. Simone Hale was the attending physician available in the clinic today if needed. A consultation was not required. documented in this encounter Plan of Treatment Upcoming Encounters Date Type Department Care Team (Late st Contact Info) Description 12/05/2023 13:30 EDT Telemedicine [facility] Neurology - S [address] 273031 Aida Zaragoza MD [address] [place] [address] [phone] 01/15/2024 9:30 EDT Procedure visit [facility] Neurology S [address] [phone] Aida Zaragoza MD [address] [phone] 01/27/2024 8:15 EDT Telemedicine [facility] Neurology S [address] 168021 Nickie Zaragoza NP [address] [phone] 04/22/2024 8:30 EST Procedure visit [address] [phone] Aida Zaragoza MD [address] [phone] 07/23/2024 8:30 EDT Procedure visit [address] 837501 Aida Zaragoza MD [address] [place] [address] [phone] Scheduled Referrals Name Type Priority Associated Diagnoses Order Schedule AMB CONS/FOLLOW UP PHYSICAL THERAPY - OUTSIDE OF NETWORK Outpatient Referral Routine/Next Available Pain of right upper extremity Expected: 01/25/2022 (Approximate), Expires: 01/18/2023 documented as of this encounter Visit Diagnoses Diagnosis Pain of right upper extremity- Primary documented in this encounter Care Teams Tool Turret Lathe Set Up Operator Relationship Specialty Start Date End Date Bernardo Nichols MD [address] [place] [address] PCP - General 06/10/17 documented as of this encounter
--- OUTSIDE RECORDS SUMMARY | 2023-11-13 12:57 | XMS_ITS | Encounter Summary ---
Author Organization [facility] Address [address] [place] [address] Care Team Providers Care Configuration Specialist Name Role Phone Bernardo Nichols MD Primary Care Provider [phone] Reason for Visit * (Routine/Next Available) - Receiving Office to Obtain Authorization Specialty Diagnoses / Procedures Referred By Contac t Referred To Contact Procedures MR OUTSIDE IMAGES NEURO Imaging, External Referral ID Status Reason Start Date Expiration Date Visits Requested Visits Authorized [id number] Receiving Office to Obtain Authorization 2 1 1 Encounter Details Date Type Department Care Team (Latest Contact Info) Description 03/26/2022 18:15 EST - 03/26/2022 23:59 EST Hospital Encounter [facility] Secondary Reads [place] Discharge Disposition: Home or Self Care Social History Tobacco Use Types Packs/Day Years [...] No 01/18/2022 documented as of this encounter Medications at Time of Discharge Medication Sig Dispensed Refills Start Date End Date acetaminophen (TYLENOL) 500 mg tablet Take 1 Tablet by mouth every 6 hours as needed for Pain. cholecalciferol, Vitamin D3, 1,000 unit tablet Take 5 Tablets by mouth daily. cyanocobalamin (VITAMIN B-12) 500 mcg tablet Take 1 Tablet by mouth daily. ketOROLAC (TORADOL) 10 mg tablet Take 1 Tablet by mouth as needed for Pain (do not take more than 2 tabs/week for headache pain>5/10). 14 Tablet 1 11/08/2021 MAGNESIUM ORAL Take 1,000 mg by mouth. 2 500 MG TABS OMEGA-3 330 MG-DHA AND EPA 300 MG-ALGAL OIL 600 MG CAPSULE 3,200 mg daily. ondansetron (ZOFRAN-ODT) 4 mg disintegrating tablet Take 1 Tablet by mouth every 8 hours as needed for Nausea. 21 Tablet 1 03/02/2022 UNABLE TO FIND Med Name: 'Restless legs' PRN for restless legs carbidopa-levodopa (SINEMET) 25-100 mg per tablet Take 2 Tablets by mouth 3 times daily. 540 Tablet 3 01/05/2022 09/13/2022 fludrocortisone (FLORINEF) 0.1 mg tablet Take 1 Tablet by mouth daily. 04/19/2023 gabapentin (NEURONTIN) 300 mg capsule Take 1 capsule by mouth 2 times daily. 180 capsule 3 11/08/2021 06/22/2022 methylPREDNISolone (MEDROL DOSEPACK) 4 mg tablet For migraine longer than 72 hours. Follow package directions. 1 Each 2 03/02/2022 04/19/2023 mirabegron (MYRBETRIQ) 25 mg extended release tablet Take by mouth daily. 04/19/2023 topiramate (TOPAMAX) 25 mg tablet Take 1 Tablet by mouth 2 times daily. 60 Tablet 1 03/19/2022 05/21/2022 documented as of this encounter Discharge Disposition Disposition Code Departure Means Destination Home or Self Care documented in this encounter Plan of Treatment Upcoming Encounters Date Type Department Care Team (Late st Contact Info) Description 12/05/2023 13:30 EDT Telemedicine [facility] Neurology S [address] 611751 Aida Zaragoza MD [address] [place] [address] [phone] 01/15/2024 9:30 EDT Procedure visit [address] 537331 Aida Zaragoza MD [address] [place] [address] [phone] 01/27/2024 8:15 EDT Telemedicine [address] 201401 Nickie Zaragoaz NP [address] [place] [address] [phone] 04/22/2024 8:30 EST Procedure visit [address] 540871 Aida Zaragoza MD [address] [place] [address] [phone] 07/23/2024 8:30 EDT Procedure visit [address] 263261 Aida Zaragoza MD [address] [place] [address] [phone] documented as of this encounter Procedures Procedure Name Priority Date/Time Associated Diagnosis Comments MR OUTSIDE IMAGES NEURO Routine 03/26/2022 18:15 EST documented in this encounter Results * MR OUTSIDE IMAGES NEURO (03/26/2022 18:15 EST) Narrative 03/26/2022 18:15 EST This is a non-reportable exam. External Imaging IMG OTHER IMAGING OR DERABLES documented in this encounter Visit Diagnoses Not on filedocumented in this encounter Care Teams Configuration Specialist Relationship Specialty Start Date End Date Bernardo Nichols MD [address] [place] [address] PCP - General 06/10/17 documented as of this encounter
--- OUTSIDE RECORDS SUMMARY | 2023-11-13 12:57 | XMS_ITS | Encounter Summary ---
Author Organization [facility] Address [address] [place] [address] Care Team Providers Care Local Government Legislator Name Role Phone Bernardo Nichols MD Primary Care Provider [phone] Reason for Visit * Reason Onset Date Comments Medication Questions 06/07/2022 Encounter Details Date Type Department Care Team (Late st Contact Info) Description 06/07/2022 Telephone [facility] Neurology - S [address] [phone] Aida Zaragoza MD [address] [place] [address] Level 2 [place] [address] Medication Questions Social History Tobacco [...] Telephone Encounter - Vanesa Ruelas RN - 06/22/2022 1621 EST Relayed below info from Regan Almanzar RPh to Jim. He states that he'd been informed by provider that it didn't matter. Reiterated that he will get better absorption of medication if taken with food, hewill begin taking with snack * Telephone Encounter - Emani Saeed RN - 06/11/2022 1337 EST [facility] to discuss patient question. Per Jelena Almanzar RPH, yes [it is crucial]. increases drug exposure 3-4 fold - so it is necessary to reach a therapeutic concentration. When patient calls back, please connect to nursing. * Telephone Encounter - Velia Fitzgerald - 06/08/2022 1551 EST Jim called in to check on the status of the message below. * Telephone Encounter - Velia Fitzgerald - 06/07/2022 1014 EST Jim called in with a question about his medication selegiline (ELDEPRYL) 5 mg tablet. He would like to know if it is crucial that he take this medication with a meal. Please call to advise. documented in this encounter Plan of Treatment Upcoming Encounters Date Type Department Care Team (Ibrahima blanco Contact Info) Description 12/05/2023 13:30 EDT Telemedicine [facility] Neurology [address] 440331 Aida Zaragoza MD [address] [place] [address] [phone] 01/15/2024 9:30 EDT Procedure visit [address] 528741 Aida Zaragoza MD [address] [place] [address] [phone] 01/27/2024 8:15 EDT Telemedicine [address] 698381 Nickie Zaragoza NP [address] [place] [address] [phone] 04/22/2024 8:30 EST Procedure visit [address] 980761 Aida Zaragoza MD [address] [place] [address] [phone] 07/23/2024 8:30 EDT Procedure visit [address] 989671 Aida Zaragoza MD [address] [place] [address] [phone] documented as of this encounter Visit Diagnoses Not on filedocumented in this encounter Care Teams Local Government Legislator Relationship Specialty Start Date End Date Bernardo Nichols MD [address] [place] [address] PCP - General 06/10/17 documented as of this encounter
--- OUTSIDE RECORDS SUMMARY | 2023-11-13 12:57 | XMS_ITS | Encounter Summary ---
Author Organization [facility] Address [address] [place] [address] Care Team Providers Care Engineering Librarian Name Role Phone Bernardo Nichols MD Primary Care Provider [phone] Reason for Visit * Reason Onset Date Comments Appointment Related 06/18/2022 Encounter Details Date Type Department Care Team (Late st Contact Info) Description 06/18/2022 Telephone [facility] Neurology - S [address] [id number] Aida Zaragoza MD [address] [place] [address] Level 2 [place] [phone] Appointment Related Social History Tobacco [...] * Telephone Encounter - Mariana Simpson - 06/18/2022 1012 EST Jim called in this morning to confirm his appointment with Dr. Lackey for June at 1:00 pm on site. Thank you documented in this encounter Plan of Treatment Upcoming Encounters Date Type Department Care Team (Late st Contact Info) Description 12/05/2023 13:30 EDT Telemedicine [facility] Neurology S [address] [id number] Aida Zaragoza MD [address] [place] [phone] 01/15/2024 9:30 EDT Procedure visit [address] 589141 Aida Zaragoza MD [address] [place] [address] [phone] 01/27/2024 8:15 EDT Telemedicine [facility] Neurology [address] 751181 Nickie Zaragoza NP [address] [place] [address] [phone] 04/22/2024 8:30 EST Procedure visit [facility] Neurology S [address] [id number] Aida Zaragoza MD [address] [place] [phone] 07/23/2024 8:30 EDT Procedure visit [facility] Neurology [address] [phone] Aida Zaragoza MD [address] [place] [address] [phone] documented as of this encounter Visit Diagnoses Not on filedocumented in this encounter Care Teams Engineering Librarian Relationship Specialty Start Date End Date Bernardo Nichols MD [address] [place] [address] PCP - General 06/10/17 documented as of this encounter
--- OUTSIDE RECORDS SUMMARY | 2023-11-13 12:57 | XMS_ITS | Encounter Summary ---
Author Organization [facility] Address [address] [place] [address] Care Team Providers Care Corset Fitter Name Role Phone Bernardo Nichols MD Primary Care Provider [phone] Reason for Visit * Reason Onset Date Comments Appointment Related 01/07/2023 Encounter Details Date Type Department Care Team (Late st Contact Info) Description 01/07/2023 Telephone [facility] Neurology - S [address] 545501 Aida Zaragoza MD [address] [place] [address] Level 2 [place] [address] Appointment Related Social History Tobacco [...] * Telephone Encounter - Darlene Hansen - 01/07/2023 1506 EDT Juana Jim cancelled the PROCEDURE appointment with Dr. Lackey on 04/18/2023 at 8:00 AM. Rescheduled it to Saturday04/19/2023 at 12:[address] Mejia. Also cancelled the PROCEDURE appointment on 07/11/2023 at 9:30 AM rescheduled it to Saturday07/17/2023 at 10:30 AM. documented in this encounter Plan of Treatment Upcoming Encounters Date Type Department Care Team (Late st Contact Info) Description 12/05/2023 13:30 EDT Telemedicine [facility] Neurology S [address] [phone] Aida Zaragoza MD [address] [place] [address] [phone] 01/15/2024 9:30 EDT Procedure visit [facility] Neurology S [address] 507371 Aida Zaragoza MD [address] [place] [address] [phone] 01/27/2024 8:15 EDT Telemedicine [facility] Neurology S [address] [phone] Nickie Zaragoza NP [address] [phone] 04/22/2024 8:30 EST Procedure visit [facility] S [address] [phone] Aida Zaragoza MD [address] [phone] 07/23/2024 8:30 EDT Procedure visit [address] [address] Aida Zaragoza MD [address] [place] [address] [phone] documented as of this encounter Visit Diagnoses Not on filedocumented in this encounter Care Teams Corset Fitter Relationship Specialty Start Date End Date Bernardo Nichols MD [address] [place], [place] [address] PCP - General 06/10/17 documented as of this encounter
--- OUTSIDE RECORDS SUMMARY | 2023-11-13 12:57 | XMS_ITS | Encounter Summary ---
Author Organization [facility] Address [address] [place] [address] Care Team Providers Care Library Services Coordinator Name Role Phone Bernardo Nichols MD Primary Care Provider [phone] Reason for Visit * Reason Onset Date Comments Update 03/06/2022 Encounter Details Date Type Department Care Team (Late st Contact Info) Description 03/06/2022 Telephone [facility] Neurology - S [address] 878451 Aida Zaragoza MD [address] [place] [address] Level 2 [place] [phone] Update Social History Tobacco Use [...] Dispensed Refills Start Date End Da te topiramate (TOPAMAX) 25 mg tablet Take 1 Tablet by mouth 2 times daily. 60 Tablet 1 03/19/2022 05/21/2022 documented in this encounter Miscellaneous Notes * Telephone Encounter - Aida Olsen RN - 03/19/2022 1151 EST TC from Jim - discussed information from Dr. Lackey. He agrees with plan but requests general neuro visit by zoom if possible. Topiramate order sent to [facility] per request. * Telephone Encounter - Aida Olsen RN - 03/19/[address] Lackey: I think the best next step is to have him return to the general neurology (resident)clinic for a visit. He was previously seeing Dr Haq, so should be established with a new resident. I am not sure who does their scheduling - but hoping this can be scheduled as an urgent visit? In the meantime, they had discussed other medications in the past but then apparently the headachesresolved spontaneously. If he is open to trying a daily medication, we can add on topiramate 25mg twice a day to start, and then potentially increase from there. Attempted to contact Jim. Left detailed message on identified VM and requested call back to discuss. Advised I would send message to sub plant manager for general neurology clinic follow up herb. * Telephone Encounter - Aida Olsen RN - 03/15/2022 1442 EST TC from Jim who states the spots in his vision have resolved now that he has finished the steroids. He did check his blood pressure at the time and cannot remember what it was but notes he thought it was normal. He got some relief of headache with steroids for a few days, but is back to having headaches that are more intense and every day. They move around but are mostly focused behind his eyes and his upper skull. They will last for a few hours, moreno for a short time and then come back. He cannot identify any triggers. Recently saw eye doctor who advised his prescription was accurate. Denies nausea or vomiting and states he is staying hydrated with around 50 ounces of fluids daily. States he gets regular sleep but questions the quality of sleep as he wakes up fatigued and the fatigue never goes away. Will treat with one tylelnol and one aleve 5 out of 7 mornings per week and two of those days he will need another dose mid-afternoon. Average pain level would be 6/10 and worst is 8-9/10. He started massage therapy and the therapist advises he is very stiff. The therapist has given him exercises to do that he hopes will help. He asks whether this pain has anything to do with parkinsons though another provider has indicated they don't believe it is. He is aware I will ask Dr. Lackey to review and advise. * Telephone Encounter - Aida Olsen RN - 03/12/2022 1117 EST Attempted to contact KAI Fernandez for CB. * Telephone Encounter - Mariana Simpson - 03/06/2022 1200 EST Jim called in this afternoon to report that since Saturday, March 03, 2022 he has been experiencing seeing seeing patterns of dots in his vision as well as seeing it on flat surfaces. He thinks it might have something to do with the medrol dose pack that he was prescribed. Please call to advise. Thank you documented in this encounter Plan of Treatment Upcoming Encounters Date Type Department Care Team (Ibrahima blanco Contact Info) Description 12/05/2023 13:30 EDT Telemedicine [facility] Neurology [address] 158241 Aida Zaragoza MD [address] [place] [address] [phone] 01/15/2024 9:30 EDT Procedure visit [address] [phone] Aida Zaragoza MD [address] [place] [address] [phone] 01/27/2024 8:15 EDT Telemedicine [address] 998251 Nickie Zaragoza NP [address] [place] [address] [phone] 04/22/2024 8:30 EST Procedure visit [address] 085221 Aida Zaragoza MD [address] [place] [address] [phone] 07/23/2024 8:30 EDT Procedure visit [address] 045151 Aida Zaragoza MD [address] [place] [address] [phone] documented as of this encounter Visit Diagnoses Not on filedocumented in this encounter Care Teams Library Services Coordinator Relationship Specialty Start Date End Date Bernardo Nichols MD [address] [place] [address] PCP - General 06/10/17 documented as of this encounter
--- OUTSIDE RECORDS SUMMARY | 2023-11-13 12:57 | XMS_ITS | Encounter Summary ---
Author Organization [facility] Address [address] [place] [address] Care Team Providers Care Business Transformation Consultant Name Role Phone Bernardo Nichols MD Primary Care Provider [phone] Encounter Details Date Type Department Care Team (Late st Contact Info) Description 10/09/2022 Lab Requisition [facility] Pathology & Laboratory Medicine - [address] [address] Tadeo Castaneda MD [address] [place] [phone] Encounter for other general examination Social History Tobacco Use Types Packs/Day Years Used Date Smoking Tobacco: Former Cigarettes 2 10 1 0 1969 Smokeless Tobacco: Never Alcohol Use [...] Assess ment Because of a physical, menta mansi or emotional condition, does this person have [...] EDT Telemedicine [facility] Neurology S [address] 746191 Aida Zaragoza MD [address] [place] [address] [phone] 01/15/2024 9:30 EDT Procedure visit [address] [phone] Aida Zaragoza MD [address] [place] [address] [phone] 01/27/2024 8:15 EDT Telemedicine [address] 850321 Nickie Zaragoza NP [address] [place] [address] [phone] 04/22/2024 8:30 EST Procedure visit [address] 928701 Aida Zaragoza MD [address] [place] [address] [phone] 07/23/2024 8:30 EDT Procedure visit [facility] Neurology [address] 858831 Aida Zaragoza MD [address] [place] [address], Level [address] [place] [phone] documented as of this encounter Procedures Procedure Name Priority Date/Time Associated Diagnosis Comments NON INFO SPECIALIST/FNA CYTOLOGY Today 10/09/2022 11:05 EDT documented in this encounter Results * NON INFO SPECIALIST/FNA CYTOLOGY (10/09/2022 11:05 EDT) Note to Patient The following pathology results have been interpreted by your pathologist and may be available to you before your health provider has had the opportunity to review them. Please allow time for your provider to receive these results and explore management options, if applicable. 10/13/2022 6:35 [facility] Final Diagnosis URINE, BARBOTAGE, CYTOLOGIC EVALUATION: - Negative for urothelial carcinoma. - Reactive urothelial cells and scattered, acute inflammatory cells. 10/13/2022 6:35 [facility] Attestation By the signature below, the attending physician certifies that they have personally conducted a gross and/or microscopic examination of the described specimens and rendered or confirmed the above diagnosis. 10/13/2022 6:35 [facility] at 0635 Clinical History Irritative symptoms. Negative cystoscopy. 10/13/2022 6:35 [facility] Gross Description A. 100cc's of clear yellow fluid were received and processed by selective cellular enhancement technique. 10/13/2022 6:35 [facility] Performing Lab [facility] 10/13/2022 6:35 [facility] Scanned Images 10/13/2022 6:35 [facility] ZZUNK URINE SPECIMEN / Unknown 10/09/2022 11:05 EDT 10/10/2022 7:01 EDT Tadeo Castaneda MD PATHOLOGY ORDERABLES [facility] [address] [place] [address] documented in this encounter Visit Diagnoses Diagnosis Encounter for other general examination documented in this encounter Care Teams Business Transformation Consultant Relationship Specialty Start Date End Date Bernardo Nichols MD [address] [place] [address] PCP - General 06/10/17 documented as of this encounter
--- OUTSIDE RECORDS SUMMARY | 2023-11-13 12:57 | XMS_ITS | Encounter Summary ---
Author Organization [facility] Address [address] [place] [address] Care Team Providers Care Senior Oracle Adf Developer Name Role Phone Bernardo Nichols MD Primary Care Provider [phone] Reason for Visit * Reason Onset Date Comments Medication Management 07/30/2022 Encounter Details Date Type Department Care Team (Late st Contact Info) Description 07/30/2022 Telephone [facility] Neurology - S [address] 495991 Aida Zaragoza MD [address] [place] [address] Level 2 [place] [phone] Medication Management Social History Tobacco Use Types [...] Telephone Encounter - Aleah Salvador RN - 08/13/2022 1514 EDT Left message on identified voice mail, pt should continue to take his Selegiline as he has. He doesnot have the lower dosing of Selegiline that comes in ODT form. * Telephone Encounter - Rhett Britt - 07/30/2022 1501 EDT Power called and wanted to know, when he takes his selegiline (ELDEPRYL) 5 mg tablet, should he be swallowing the whole tablet or letting it dissolve under his tongue. He has been swallowing it but he saw a referance of letting it dissolve. He wants to make sure he is taking it correctly documented in this encounter Plan of Treatment Upcoming Encounters Date Type Department Care Team (Late st Contact Info) Description 12/05/2023 13:30 EDT Telemedicine [facility] Neurology - S [address] [phone] Aida Zaragoza MD [address] [place] [phone] 01/15/2024 9:30 EDT Procedure visit [facility] Neurology S [address] [phone] Aida Zaragoza MD [address] [place] [address] [phone] 01/27/2024 8:15 EDT Telemedicine [address] 965361 Nickie Zaragoza NP [address] [phone] 04/22/2024 8:30 EST Procedure visit [address] 069501 Aida Zaragoza MD [address] [place] [address] [phone] 07/23/2024 8:30 EDT Procedure visit [address] 901011 Aida Zaragoza MD [address] [place] [address] [phone] documented as of this encounter Visit Diagnoses Not on filedocumented in this encounter Care Teams Senior Oracle Adf Developer Relationship Specialty Start Date End Date Bernardo Nichols MD [address] [place] [address] PCP - General 06/10/17 documented as of this encounter
--- OUTSIDE RECORDS SUMMARY | 2023-11-13 12:57 | XMS_ITS | Encounter Summary ---
Author Organization [facility] Address [address] [place] [address] Care Team Providers Care Television Specialist Name Role Phone Bernardo Nichols MD Primary Care Provider [phone] Reason for Visit * Reason Onset Date Comments Medication Questions 03/21/2022 Encounter Details Date Type Department Care Team (Late st Contact Info) Description 03/21/2022 Telephone [facility] Neurology - S [address] 585881 Aida Zaragoza MD [address] [place] [address] Level 2 [place] [phone] Medication Questions Social History Tobacco [...] Telephone Encounter - Vanesa Ruelas RN - 03/23/2022 0948 EST rtc to Power, let him know that Dr Lackey is ok with him taking Ibuprofen or Tylenol. In addition informed him that she would not yet increase Topamax dose as he has only been taking for brief period of time. Power understands and will keep us posted re sx. Prior to ending conversation he reports that he went to [facility] yesterday because ofan 'issue with the eyes', he was informed that he probably had a TIA, was given ASAx2. He did have a scan and is d/t f/u w PCP. He has done some research and discovered conflicting info re prophylactic ASA dosing; will discuss with trusted PCP prior to making decision re this. It doesn't appear that any records from [facility] have been routed to [facility], he will phone their med rec dept today to request they fax over any info from yesterday visit. He is aware that we will rtc to him prn after routing this info to Dr Badillo * Telephone Encounter - Vanesa Ruelas RN - 03/23/2022 0837 EST rtc to kenan Steve to enable discussion re sx and whether or not he feels that the Topamax has offered any relief. In meantime, will route this message to Dr Lackey for her consideration as there is documentation that Topamax dose might be increased at some point. * Telephone Encounter - Shellie Hansen - 03/21/2022 1323 EST Power is calling in today to ask if he can take Tylenol and Aleve with his Topamax??? Please reach out and advise. Thank you, documented in this encounter Plan of Treatment Upcoming Encounters Date Type Department Care Team (Late st Contact Info) Description 12/05/2023 13:30 EDT Telemedicine [facility] Neurology S [address] [id number] Aida Zaragoza MD [address] [place] [address] [phone] 01/15/2024 9:30 EDT Procedure visit [address] 560591 Aida Zaragoza MD [address] [place] [address] [phone] 01/27/2024 8:15 EDT Telemedicine [address] 968431 Nickie Zaragoza NP [address] [place] [address] [phone] 04/22/2024 8:30 EST Procedure visit [address] 109931 Aida Zaragoza MD [address] [place] [address] [phone] 07/23/2024 8:30 EDT Procedure visit [address] 165321 Aida Zaragoza MD 1 [facility], Level [address] [place] [phone] documented as of this encounter Visit Diagnoses Not on filedocumented in this encounter Care Teams Television Specialist Relationship Specialty Start Date End Date Bernardo Nichols MD [address] [place], [place] [address] PCP - General 06/10/17 documented as of this encounter
--- OUTSIDE RECORDS SUMMARY | 2023-11-13 12:57 | XMS_ITS | Encounter Summary ---
Author Organization [facility] Address [address] [place] [address] Care Team Providers Care Ventilation Mechanic Name Role Phone Bernardo Nichols MD Primary Care Provider [phone] Reason for Visit * (Routine/Next Available) - Receiving Office to Obtain Authorization Specialty Diagnoses / Procedures Referred By Contac t Referred To Contact Procedures CT OUTSIDE IMAGES NEURO Imaging, External Referral ID Status Reason Start Date Expiration Date Visits Requested Visits Authorized [id number] Receiving Office to Obtain Authorization 2 1 1 Encounter Details Date Type Department Care Team (Latest Contact Info) Description 03/22/2022 0:05 EST - 03/22/2022 23:59 EST Hospital Encounter [facility] Secondary Reads [place] Discharge Disposition: Home or [...] Contact Info) Description 12/05/2023 13:30 EDT Telemedicine [facility] Neurology S [address] 275121 Aida Zaragoza MD [address] [place] [address] [phone] 01/15/2024 9:30 EDT Procedure visit [address] 506231 Aida Zaragoza MD [address] [place] [address] [phone] 01/27/2024 8:15 EDT Telemedicine [address] 143571 Nickie Zaragoza NP [address] [place] [address] [phone] 04/22/2024 8:30 EST Procedure visit [address] 049151 Aida Zaragoza MD [address] [place] [address] [phone] 07/23/2024 8:30 EDT Procedure visit [address] 949701 Aida Zaragoza MD [address] [place] [address] [phone] documented as of this encounter Procedures Procedure Name Priority Date/Time Associated Diagnosis Comments CT OUTSIDE IMAGES NEURO Routine 03/22/2022 18:16 EST documented in this encounter Results * CT OUTSIDE IMAGES NEURO (03/22/2022 18:16 EST) Narrative 03/26/2022 18:16 EST This is a non-reportable exam. External Imaging IMG OTHER IMAGING OR DERABLES documented in this encounter Visit Diagnoses Not on filedocumented in this encounter Care Teams Ventilation Mechanic Relationship Specialty Start Date End Date Bernardo Nichols MD [address] [place] [address] PCP - General 06/10/17 documented as of this encounter
--- OUTSIDE RECORDS SUMMARY | 2023-11-13 12:57 | XMS_ITS | Encounter Summary ---
Author Organization [facility] Address [address] [place] [address] Care Team Providers Care Delivery Architect Name Role Phone Bernardo Nichols MD Primary Care Provider [phone] Reason for Visit * Reason Onset Date Comments Medications Refill 06/26/2022 Encounter Details Date Type Department Care Team (Late st Contact Info) Description 06/26/2022 Refill [facility] Neurology - S [address] [id number] Aida Zaragoza MD [address] [place] [address] Level 2 [place] [phone] Medications Refill Social History Tobacco Use Types Packs/Day Years [...] Telephone Encounter - Aleah Salvador RN - 06/27/2022 1037 EDT Pt last seen 06/21/22 with message noted in encounter: -- HEADACHES: no clear etiology, but these have improved even after weaning off prednisone and stopping topiramate a few days ago. I previously did not think his description was that of migraine, andit is not clear that a low dose of topiramate has been helpful so we will continue with the currentplan unless headaches worse (at which point topiramate can be reintroduced). We will not fill Topiramate at this time. * Telephone Encounter - Rebeca Wadsworth RN - 06/27/2022 1026 EDT Requested Prescriptions Pending Prescriptions Disp Refills ??? topiramate (TOPAMAX) 25 mg tablet 60 Tablet 0 Sig: Take 1 Tablet by mouth 2 times daily. Pharmacy: [facility] Last Refill Date: 05/21/22 Last Visit Date: 06/21/22 Next Non-Acute Visit Date Scheduled with Care Team: No. Visit date not found Patient is no longer taking this medication per OV note from 06/21/22. Refill refused. REBECA WADSWORTH RN 06/27/2022 10:29 * Telephone Encounter - Jessy Escamilla MA - 06/26/2022 1440 EDT Fax received from [facility] requesting a refill of topiramate (TOPAMAX) 25 mg tablet Summary: Take 1 tablet by mouth twice daily Last fill: 05/21/2022 Last seen: 06/21/2022 No future appointments documented in this encounter Plan of Treatment Upcoming Encounters Date Type Department Care Team (Late st Contact Info) Description 12/05/2023 13:30 EDT Telemedicine [facility] Neurology [address] [id number] Aida Zaragoza MD [address] [place] [address] [phone] 01/15/2024 9:30 EDT Procedure visit [address] 912721 Aida Zaragoza MD [address] [place] [address] [phone] 01/27/2024 8:15 EDT Telemedicine [address] 398721 Nickie Zaragoza NP [address] [place] [address] [phone] 04/22/2024 8:30 EST Procedure visit [address] 792791 Aida Zaragoza MD [address] [place] [address] [phone] 07/23/2024 8:30 EDT Procedure visit [address] 798111 Aida Zaragoza MD [address] [place] [address] [phone] documented as of this encounter Visit Diagnoses Not on filedocumented in this encounter Discontinued Medications Medication Sig Discontinue Reason Start Date End Da te topiramate (TOPAMAX) 25 mg tablet Take 1 tablet by mouth twice daily Patient Stopped Taking 05/21/2022 06/27/2022 documented as of this encounter Care Teams Delivery Architect Relationship Specialty Start Date End Date Bernardo Nichols MD [address] [place] [address] PCP - General 06/10/17 documented as of this encounter
--- OUTSIDE RECORDS SUMMARY | 2023-11-13 12:57 | XMS_ITS | Encounter Summary ---
Author Organization [facility] Address [address] [place] [address] Care Team Providers Care Fisher Terrapin Name Role Phone Bernardo Nichols MD Primary Care Provider [phone] Reason for Visit * Reason Onset Date Comments Neck Pain 01/18/2022 Encounter Details Date Type Department Care Team (Late st Contact Info) Description 01/18/2022 Orders Only [facility] - [address] [place] [address] Dwight Munoz PA-C [address] [facility] [place] [address] Neck pain (Primary Dx) Social History Tobacco Use Types [...] 12/05/2023 13:30 EDT Telemedicine [facility] Neurology [address] 318031 Aida Zaragoza MD [address] [place] [address] [phone] 01/15/2024 9:30 EDT Procedure visit [address] 652281 Aida Zaragoza MD [address] [place] [address] [phone] 01/27/2024 8:15 EDT Telemedicine [address] 063521 Nickie Zaragoza NP [address] [place] [address] [phone] 04/22/2024 8:30 EST Procedure visit [address] 998241 iAda Zaragoza MD [address] [place] [address] [phone] 07/23/2024 8:[address] [facility] S [address] [address] Aida Zaragoza MD 1 [facility], Level 2 [place] [phone] Scheduled Orders Name Type Priority Associated Diagnoses Orde r Schedule XR CERVICAL SPINE 4-5 VIEWS Imaging Routine Neck pain Ordered: 01/18/2022 documented as of this encounter Visit Diagnoses Diagnosis Neck pain- Primary Cervicalgia documented in this encounter Care Teams Fisher Terrapin Relationship Specialty Start Date End Date Bernardo Nichols MD [address] [place] [address] PCP - General 06/10/17 documented as of this encounter
--- OUTSIDE RECORDS SUMMARY | 2023-11-13 12:57 | XMS_ITS | Encounter Summary ---
Author Organization [facility] Address [address] [place] [address] Care Team Providers Care Check Viewer Name Role Phone Bernardo Nichols MD Primary Care Provider [phone] Reason for Visit * Reason Onset Date Comments Appointment Related 04/23/2022 Encounter Details Date Type Department Care Team (Late st Contact Info) Description 04/23/2022 Telephone [facility] Neurophysiology - [facility] [address] [place] [address] Alexis Burrows MD 111 [facility]. Level 5 [place] [phone] Appointment Related Social History Tobacco Use Types [...] encounter Miscellaneous Notes * Telephone Encounter - Scott Bishop MA - 04/23/2022 1329 EST M for Jim to confirm a follow up appointment with Dr. Alexis Burrows. documented in this encounter Plan of Treatment Upcoming Encounters Date Type Department Care Team (Late st Contact Info) Description 12/05/2023 13:30 EDT Telemedicine [facility] Neurology S [address] [phone] Aida Zaragoza MD [address] [place] [address] [phone] 01/15/2024 9:30 EDT Procedure visit [address] [phone] Aida Zaragoza MD [address] [place] [address] [phone] 01/27/2024 8:15 EDT Telemedicine [facility] Neurology [address] 342131 Nickie Zaragoza NP [address] [place] [address] [phone] 04/22/2024 8:30 EST Procedure visit [facility] S [address] [phone] Aida Zaragoza MD 1 [facility] 2 [place] [phone] 07/23/2024 8:30 EDT Procedure visit [facility] Neurology - S [place] 1 [place], [place] [phone] Aida Zaragoza MD 1 [facility] 2 [place] [phone] documented as of this encounter Visit Diagnoses Not on filedocumented in this encounter Care Teams Check Viewer Relationship Specialty Start Date End Date Bernardo Nichols MD [address] [place] [address] PCP - General 06/10/17 documented as of this encounter
--- OUTSIDE RECORDS SUMMARY | 2023-11-13 12:57 | XMS_ITS | Encounter Summary ---
Author Organization [facility] Address [address] [place] [address] Care Team Providers Care Core Drill Operator Helper Name Role Phone Bernardo Nichols MD Primary Care Provider [phone] Reason for Visit * Reason Comments Medications Refill Encounter Details Date Type Department Care Team (Late st Contact Info) Description 05/20/2022 Refill [facility] Neurology - S [address] 993641 Aida Zaragoza MD [address] [place] [address] Level 2 [place] [phone] Medications Refill Social History Tobacco Use Types [...] Take 1 tablet by mouth twice daily 60 Tablet 05/21/2022 06/27/2022 documented in this encounter Miscellaneous Notes * Telephone Encounter - Rebeca Wadsworth RN - 05/21/2022 1053 EST Requested Prescriptions Pending Prescriptions Disp Refills ??? topiramate (TOPAMAX) 25 mg tablet [Pharmacy Med Name: Topiramate 25 MG Oral Tablet] 60 Tablet 0 Sig: Take 1 tablet by mouth twice daily Pharmacy: [facility] Last Refill Date: 03/19/22 Last Visit Date: 04/25/22 Next Non-Acute Visit Date Scheduled with Care Team: Yes. 06/21/2022 60/0 RF sent to pharmacy REBECA WADSWORTH RN 05/21/2022 10:53 * Telephone Encounter - Riley Smith - 05/21/2022 1017 EST Jim calls for the medication refill below. He is on his last week of medication. documented in this encounter Plan of Treatment Upcoming Encounters Date Type Department Care Team (Late st Contact Info) Description 12/05/2023 13:30 EDT Telemedicine [facility] Neurology - S [address] [phone] Aida Zaragoza MD [address] [place] [address], Level [address] [place] [phone] 01/15/2024 9:30 EDT Procedure visit [address] [phone] Aida Zaragoza MD [address] [place] [address] [phone] 01/27/2024 8:15 EDT Telemedicine [address] 652761 Nickie Zaragoza NP [address] [place] [address] [phone] 04/22/2024 8:30 EST Procedure visit [address] 260031 Aida Zaragoza MD [address] [place] [address] [phone] 07/23/2024 8:30 EDT Procedure visit [address] 852711 Aida Zaragoza MD [address] [place] [address] [phone] documented as of this encounter Visit Diagnoses Not on filedocumented in this encounter Discontinued Medications Medication Sig Discontinue Reason Start Date End Da te topiramate (TOPAMAX) 25 mg tablet Take 1 Tablet by mouth 2 times daily. 03/19/2022 05/21/2022 documented as of this encounter Care Teams Core Drill Operator Helper Relationship Specialty Start Date End Date Bernardo Nichols MD [address] [place] [address] PCP - General 06/10/17 documented as of this encounter
--- OUTSIDE RECORDS SUMMARY | 2023-11-13 12:57 | XMS_ITS | Encounter Summary ---
Author Organization [facility] Address [address] [place] [address] Care Team Providers Care Senior Erp Consultant Name Role Phone Bernardo Nichols MD Primary Care Provider [phone] Reason for Visit * Reason Onset Date Comments Appointment Related 06/06/2022 Medication Management 06/06/2022 Encounter Details Date Type Department Care Team (Late st Contact Info) Description 06/06/2022 Telephone [facility] Neurology - S [place] [address] [place] [address] [id number] Aida Zaragoza MD [address] [place] [address] Level 2 [place] [phone] Appointment Related; Medication Management Social History Tobacco Use Types [...] * Telephone Encounter - Darlene Hansen - 06/11/2022 0935 EST Outreached JAYA Fernandez VOICEMAIL stating that the TELEVIDEO appointment with Dr. Lackey on 06/21/2022 at 1:00 PM gas been changed to a PROCEDURE appointment instead. * Telephone Encounter - Bhanu Jaimes - 06/06/2022 1155 EST Pt calls to say that someone was supposed to be working on the following request: Pt wants to combine his next appointment with a PRO botox appt. His next appt is a video visit. I see no encounter about this. PA for Botox has been approved, there are appts available on 06/07/22 but pt needs to arrange a ride. Next available after that are in October 2022. Pt would like us to review his request. documented in this encounter Plan of Treatment Upcoming Encounters Date Type Department Care Team (Late st Contact Info) Description 12/05/2023 13:30 EDT Telemedicine [facility] Neurology S [address] [phone] Aida Zaragoza MD 1 [facility], Level 2 [place] [phone] 01/15/2024 9:30 EDT Procedure visit [facility] Neurology S [address] [id number] Aida Zaragoza MD [address] [place] [address] [phone] 01/27/2024 8:15 EDT Telemedicine [address] 391871 Nickie Zaragoza NP [address] [place] [address] [phone] 04/22/2024 8:30 EST Procedure visit [address] 502621 Aida Zaragoza MD [address] [place] [address] [phone] 07/23/2024 8:30 EDT Procedure visit [address] 421311 Aida Zaragoza MD [address] [place] [address] [phone] documented as of this encounter Visit Diagnoses Not on filedocumented in this encounter Care Teams Senior Erp Consultant Relationship Specialty Start Date End Date Bernardo Nichols MD [address] [place] [address] PCP - General 06/10/17 documented as of this encounter
--- OUTSIDE RECORDS SUMMARY | 2023-11-13 12:57 | XMS_ITS | Encounter Summary ---
Author Organization [facility] Address [address] [place] [address] Care Team Providers Care Apparatus Lineman Name Role Phone Bernardo Nichols MD Primary Care Provider [phone] Reason for Visit * Reason Onset Date Comments Appointment Related 04/23/2022 Encounter Details Date Type Department Care Team (Late st Contact Info) Description 04/23/2022 Telephone [facility] Neurology - S [address] [phone] Aida Zaragoza MD [address] [place] [address] Level [address] [place] [phone] Appointment Related Social History Tobacco [...] encounter Miscellaneous Notes * Telephone Encounter - Sharon Polanco - 04/23/2022 1344 EST Spoke with Jim regarding his appointment [facility]fellow clinic with . He stated that he has not had a seizure since the , cancelled the appointment, and stated that he would call if he had another seizure. * Telephone Encounter - Mariana Simpson - 04/23/2022 1314 EST Jim called back in this afternoon wanting to let us know that he will not be able to keep the appointment with Dr. Lackey for Wednesday, April 27, 2022, but he has been rescheduled for Monday, April 25, 2022 at 4:[address] Lackey. I spoke with Sharon at [facility] and she advised me that Jim did see Dr. Anderson and that is why he is now scheduled to see Dr. Burrows. Dr. Anderson is no longer with us. I called and left a message for the patient to call us back. Thank you * Telephone Encounter - Rhett Britt - 04/23/2022 1159 EST Jim called and said he was scheduled with Dr Burrows tomorrow 04/24/22 for TVD FUR at 9:00am. He has never seen Dr Burrows. He saw Dr Anderson 08/24/21. This is a follow up to that appt Scheduled with Dr Lackey 04/27/22 at 10:00am per 02/08/22 office note - 30 min in-person. documented in this encounter Plan of Treatment Upcoming Encounters Date Type Department Care Team (Late st Contact Info) Description 12/05/2023 13:30 EDT Telemedicine [facility] Neurology [address] 995491 Aida Zaragoza MD [address] [place] [address] [phone] 01/15/2024 9:30 EDT Procedure visit [address] 119781 Aida Zaragoza MD [address] [place] [address] [phone] 01/27/2024 8:15 EDT Telemedicine [address] [phone] Nickie Zaragoza NP [address] [place] [address] [phone] 04/22/2024 8:30 EST Procedure visit [address] 596971 Aida Zaragoza MD [address] [place] [address] [phone] 07/23/2024 8:30 EDT Procedure visit [address] 893401 Aida Zaragoza MD [address] [place] [address] [phone] documented as of this encounter Visit Diagnoses Not on filedocumented in this encounter Care Teams Apparatus Lineman Relationship Specialty Start Date End Date Bernardo Nichols MD [address] [place] [address] PCP - General 06/10/17 documented as of this encounter
--- OUTSIDE RECORDS SUMMARY | 2023-11-13 12:57 | XMS_ITS | Encounter Summary ---
Author Organization [facility] Address [address] [place] [address] Care Team Providers Care Plant Operations Worker Name Role Phone Bernardo Nichols MD Primary Care Provider [phone] Reason for Visit * Reason Comments Medications Refill Encounter Details Date Type Department Care Team (Late st Contact Info) Description 06/19/2022 Refill [facility] Neurology - S [address] 030891 Aida Zaragoza MD [address] [place] [address] Level 2 [place] [phone] Medications Refill Social History Tobacco Use Types [...] encounter Miscellaneous Notes * Telephone Encounter - Glynn Oliveira RN - 06/25/2022 0912 EDT Refill request for: topiramate (TOPAMAX) 25 mg tablet LV: 06/21/22 and per note HEADACHES: no clear etiology, but these have improved even after weaning off prednisone and stopping topiramate a few days ago. I previously did not think his description wasthat of migraine, and it is not clear that a low dose of topiramate has been helpful so we will continue with the current plan unless headaches worse (at which point topiramate can be reintroduced). Sent MCM to patient to inquire if pharmacy automatically requested or if he did. documented in this encounter Plan of Treatment Upcoming Encounters Date Type Department Care Team (Late st Contact Info) Description 12/05/2023 13:30 EDT Telemedicine [facility] Neurology S [address] 274401 Aida Zaragoza MD [address] [place] [address] [phone] 01/15/2024 9:30 EDT Procedure visit [facility] Neurology S [address] [phone] Aida Zaragoza MD [address] [place] [address] [phone] 01/27/2024 8:15 EDT Telemedicine [facility] Neurology [address] [phone] Nickie Zaragoza NP [address] [place] [address] [phone] 04/22/2024 8:30 EST Procedure visit [address] [phone] Aida Zaragoza MD [address] [place] [address] [phone] 07/23/2024 8:30 EDT Procedure visit [address] [phone] Aida Zaragoza MD [address] [place] [phone] documented as of this encounter Visit Diagnoses Not on filedocumented in this encounter Care Teams Plant Operations Worker Relationship Specialty Start Date End Date Bernardo Nichols MD [address] [place] [address] PCP - General 06/10/17 documented as of this encounter
--- OUTSIDE RECORDS SUMMARY | 2023-11-13 12:57 | XMS_ITS | Encounter Summary ---
Author Organization [facility] Address [address] [place] [address] Care Team Providers Care Sales Enablement Specialist Name Role Phone Bernardo Nichols MD Primary Care Provider [phone] Reason for Referral * PT/OT/ST (Routine/Next Available) - Specialty Report Received Specialty Diagnoses / Procedures Referred By Nikhil arita Referred To Contact Diagnoses Parkinson disease ([facility]) Hypophonia Aida Zaragoza MD [address] [place] [address] 2 [place] [address] Referral ID Status Reason Start Date Expiration Date Visits Requested Visits Authorized [id number] Specialty Report Received Specialty Services Required 06/21/2022 1 1 Question Answer Type of FULL CHARGE BOOKKEEPER Eval: Voice Eval & Treat Reason for Request: Patient with PD and hypophonia, looking for help with voice / speech Practice Site (External Referral Only): [facility] Comments [address] [place] [address], [address] [place] [address] PHONE FAX Reason for Visit * Reason Comments Procedure Xeomin * Medication Prior Authorization (Routine/Next Available) - Closed Specialty Diagnoses / Procedures Referred By Nikhil arita Referred To Contact Neurology Diagnoses Sialorrhea Parkinson disease ([facility]) Procedures HI INCOBOTULINUMTOXIN A HI CHEMODENERVATION MUSCLE NECK UNILAT FOR DYSTONIA Aida Zaragoza MD [address] [place] [address] 2 [place] [address] [facility] Neurology [address] [address] Referral ID Status Reason Start Date Expiration Date Visits Requested Visits Authorized [id number] Closed Medication Prior Authorization 06/04/2022 12/02/2022 2 2 Encounter Details Date Type Department Care Team (Late st Contact Info) Description 06/21/2022 13:00 EST Procedure visit [facility] Neurology - S [address] [id number] Aida Zaragoza MD [address] [place] [address], Level [address] [place] [address] Parkinson disease (Primary Dx); Hypophonia; Sialorrhea; Intractable headache, unspecified chronicity pattern, unspecified headache type; Restless legs syndrome (RLS) Social History Tobacco Use Types Packs/Day Years Used Date Smoking Tobacco: Former Cigarettes 2 10 1 960 1969 Smokeless Tobacco: Never Tobacco Cessation:Counseling Given: [...] Progress Notes * Aida Zaragoza MD - 06/21/2022 1300 EST Images from the original note were not included. Type of visit: Follow-up visit Clinician Requesting Consultation: Bernardo Nichols MD [address] [place] [address] Primary Workforce Investment Act Career Manager: Bernardo Nichols [address] [facility] [address] ASSESSMENT & PLAN / RECOMMENDATIONS 1. Parkinson disease (HCC-CMS) (HCC) AMB CONS/FOLLOW UP SPEECH & LANGUAGE PATHOLOGY - EXTERNAL 2. Hypophonia AMB CONS/FOLLOW UP SPEECH & LANGUAGE PATHOLOGY - EXTERNAL 3. Sialorrhea 4. Intractable headache, unspecified chronicity pattern, unspecified headache type 5. Restless legs syndrome (RLS) Jim Gonzalez is a 76 y.o. gentleman who returns to the [facility] Movement Disorders clinic for evaluation and [...] his examination still appears consistent with mild parkinsonism. He ismore bothered by headache, a foggy feeling in the head, gait instability, and low back pain without a clear etiology for these symptoms. -- PARKINSON DISEASE: he continues to experience mild, asymmetric right hemibody parkinsonism - this did not seem to worsen much when Mr. Gonzalez was tapered off levodopa. The addition of selegiline mayhave led to a marginal improvement. I would not consider this a levodopa failure, as he was only ania low dose and symptoms may be too mild to show a clear response at this time. - continue with selegiline 5mg tablets: 1 tablet BID - consider resuming treatment with levodopa to specifically address bradykinesia, shuffling - referral to FULL CHARGE BOOKKEEPER to work on voice projection - [facility] - encouraged exercise and physical activity as much as tolerated, continue to work with PT on gait/balance -- SIALORRHEA: recently brought up in a message, he notes increased salivation during the day and at night. Reviewed non-medication treatment strategies to employ during the daytime, but he consentedto Xeomin injections today. - Xeomin injections performed today for sialorrhea - 100 units; repeat q12 weeks -- HEADACHES: no clear etiology, but these have improved even after weaning off prednisone and stopping topiramate a few days ago. I previously did not think his description was that of migraine, andit is not clear that a low dose of topiramate has been helpful so we will continue with the currentplan unless headaches worse (at which point topiramate can be reintroduced). - strongly encouraged that he use the CPAP as much as possible, as untreated sleep apnea can lead to fatigue, daytime sleepiness and headaches - continue Tylenol in the morning, then can use the ketorolac as needed for severe days (but no more than two a week) -- FATIGUE / DAYTIME SLEEPINESS: he describes an ongoing fogginess that does not seem to be linked with medications, headaches, or use of CPAP. It is possible that he could be experiencing blood pressure fluctuations, as he does have known hypotension (takes fludrocortisone). Otherwise, I am not sure what is causing this sensation. The current medication regimen does not seem to be the culprit,as this symptom preceded many of the medications including topiramate, which was recently discontinued anyway without improvement. - lab work: consider checking thyroid function, Vitamin B12 - will monitor now that he is off prednisone, topiramate, etc - recommended he take blood pressure routinely at home to look for low blood pressures, and continue to take fludrocortisone - contingency plan to add a stimulant medication -- RESTLESS LEGS SYNDROME: increased risk given parkinsonism, but symptoms have remained stable with the current dosage of medication. While gabapentin - continue with gabapentin 300mg at bedtime -- REMOTE HISTORY OF REPORTED EPILEPSY: per patient, no seizures in >20 years and he is not currently medicated. Would not resume an AED unless something new were to occur. Return to clinic: 3 months, on-site SUBJECTIVE Reason for consultation/ Chief complaint: Parkinson disease History of Presenting Illness (HPI): Jim Calderon Carlos is a 76 y.o. gentleman who was referred to the [facility] Disorders clinic for evaluation and [...] started on gabapentin. Interval history (last visit 04/25/2022): Headaches seem better still. He was able to taper off the prednisone. He ran out of topiramate a few days ago so hasn't taken that either. He started the selegiline almost a month ago - feels that it has helped a little bit with slowness of movement, not with fatigue. He does not get tremor so could not use this as a marker. Since the last visit, he messaged stating he was noting excessive drooling. I sent some conservative options, but he was interested in botulinum toxin injections to decrease salivation. He still has issues with fogginess - described today as difficulty coming up with the correct word. More so, he feels a pressure sensation in the head. ROS: A comprehensive 13 system review was [...] the morning; no nausea/vomiting, photophobia or phonophobia Current Medications: Outpatient Medications Marked as Taking for the 06/21/22 encounter (Procedure visit) with Gabriel Zaragoza MD Medication Sig Dispense Refill ??? acetaminophen (TYLENOL) 500 mg tablet Take 500 mg by mouth every 6 hours as needed for Pain. ??? aspirin 81 mg capsule Take by mouth daily. ??? cholecalciferol, Vitamin D3, 1,000 unit tablet Take 5,000 Units by mouth daily. ??? cyanocobalamin (VITAMIN B-12) 500 mcg tablet Take 1,000 mcg by mouth daily. ??? fludrocortisone (FLORINEF) 0.1 mg tablet Take 0.1 mg by mouth daily. ??? gabapentin (NEURONTIN) 300 mg capsule Take 1 capsule by mouth 2 times daily. (Patient taking differently: Take 300 mg by mouth at bedtime.) 180 capsule 3 ??? MAGNESIUM ORAL Take 1,000 mg by mouth. 2 500 MG TABS ??? mirabegron (MYRBETRIQ) 25 mg extended release tablet Take by mouth daily. ??? OMEGA-3 330 MG-DHA AND EPA 300 MG-ALGAL OIL 600 MG CAPSULE 3,200 mg daily. ??? ondansetron (ZOFRAN-ODT) 4 mg disintegrating tablet Take 1 Tablet by mouth every 8 hours as needed for Nausea. 21 Tablet 1 ??? selegiline (ELDEPRYL) 5 mg tablet Take 1 Tablet by mouth daily for 7 days, THEN 1 Tablet 2 times daily with breakfast and lunch for 30 days. 67 Tablet 3 Allergies Allergen Reactions ??? Grass Pollen Hay Fever Past Medical History GERD HLD Sleep apnea - uses CPAP Hypotension Restless legs syndrome Parkinson disease Past Surgical History Right hip replacement Family History No neurological issues in the family. 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 Decreased facial spontaneity/animation No postural, action, resting tremor. Slight decreased in spontaneous movements in the upper extremities Repetitive movements show slight decrease in speed and amplitude on the right > left. He is able to rise from a seated position without difficulty. Casual gait shows decreased stride length, clearance, and speed - but not magnetic. He is not wide-based. En bloc turning is noted. DATA No new data to review. Previous [...] the procedure. Informed consent was obtained on 06/21/2022 after discussing potential benefits, alternative treatments, consequences [...] dilution 1 ml per 100 unit vial. EMG guidance was used to definitively confirm the location of the needle within the muscle and further localize the muscle by co-activating it while listening to the EMG activity. Electromyographic guidance was required for the following reasons: - due to small and layered nature of target region musculature with spontaneous and/or iatrogenic atrophy - identification/ confirmation of hyperactive/ spontaneous tonic /spastic muscles involved - identification / confirmation of target muscle injection with impaired voluntary activation pattern +/- use of EMG during passive stretch Botulinum toxin injections: Side Muscle Sites Concentration [...] 0 Vial 1: Xeomin 100 unit vial [[facility] [id number]] Lot #: [id number] Exp: The patient tolerated the procedure well. There were no immediate complications. In addition to performing injections, I spent a total of 30 minutes on the date of this encounter meeting with the patient and reviewing documentation/coordinating care as described in the above note. Time dedicated to this visit was spent on the following activities: Patient/respiratory care specialist education Review of the pertinent information in the electronic health record Care plan formulation Supportive counseling Scanned health information available from the referring and/or primary provider(s) Aida Lackey MD Attending Physician, Movement Disorders Department of Neurology documented in this encounter Plan of Treatment Upcoming Encounters Date Type Department Care Team (Late st Contact Info) Description 12/05/2023 13:30 EDT Telemedicine [facility] Neurology S [address] [id number] Aida Zaragoza MD [address] [place] [phone] 01/15/2024 9:30 EDT Procedure visit [facility] Neurology S [address] [address] Aida Zaragoza MD [address] [place] [phone] 01/27/2024 8:15 EDT Telemedicine [facility] Neurology [address] [id number] Nickie Zaragoza NP [address] [place] [phone] 04/22/2024 8:30 EST Procedure visit [address] [id number] Aida Zaragoza MD [address] [place] [phone] 07/23/2024 8:30 EDT Procedure visit [address] [id number] Aida Zaragoza MD [address] [place] [phone] Scheduled Referrals Name Type Priority Associated Diagnoses Order Schedule AMB CONS/FOLLOW UP SPEECH & LANGUAGE PATHOLOGY - EXTERNAL Outpatient Referral Routine/Next Available Parkinson disease Hypophonia Expected: 06/28/2022 (Approximate), Expires: 06/22/2023 documented as of this encounter Visit Diagnoses Diagnosis Parkinson disease ([facility])- Primary Paralysis agitans Hypophonia Other voice and resonance disorders Sialorrhea Disturbance of salivary secretion Intractable headache, unspecified chronicity pattern, unspecified headache type Restless legs syndrome (RLS) documented in this encounter Care Teams Sales Enablement Specialist Relationship Specialty Start Date End Date Bernardo Nichols MD [address] [place] [address] PCP - General 06/10/17 documented as of this encounter
--- OUTSIDE RECORDS SUMMARY | 2023-11-13 12:57 | XMS_ITS | Encounter Summary ---
Author Organization [facility] Address [address] [place] [address] Care Team Providers Care Assistant Scientist Name Role Phone Bernardo Nichols MD Primary Care Provider [phone] Reason for Visit * Reason Comments Follow-up Telemedicine Video Visit Encounter Details Date Type Department Care Team ([facility] st Contact Info) Description 02/08/2022 16:00 EDT Telemedicine [facility] Neurology - S [address] [id number] Aida Zaragoza MD [address] [place] [address], Level [address] [place] [phone] Primary parkinsonism (Primary Dx); Restless legs syndrome (RLS); Intractable headache, unspecified chronicity pattern, unspecified headache type; Cervicogenic headache; Arm paresthesia, right Social History Tobacco Use Types Packs/Day Years [...] of this encounter Progress Notes * Aida Lackey MD - 02/08/2022 1600 EDT Images from the original note were not included. Type of visit: Follow-up Telehealth visit Clinician Requesting Consultation: Bernardo Nichols MD [address] [place] [address] Primary Wildlife Forensic Geneticist: Bernardo Nichols [address] [facility] [address] ASSESSMENT & PLAN / RECOMMENDATIONS 1. Primary parkinsonism (HCC) 2. Restless legs syndrome (RLS) 3. Intractable headache, unspecified chronicity pattern, unspecified headache type 4. Cervicogenic headache 5. Arm paresthesia, right Jim Gonzalez is a 76 y.o. gentleman who returns to the [facility] Movement Disorders clinic for evaluation and management of parkinsonism. He was first evaluated for potential parkinsonism in 2019, though examination was limited by Telehealth. At a subsequent visit in early 2020, it was felt that his right arm tremor and other symptoms were likely related to Parkinson disease, and hewas started on carbidopa-levodopa. He has not appreciated a robust response to the medication, though he has been unsure as to what it should be treating. In July 2021, he underwent DaTscan, which showed reduced uptake bilaterally (though worse on the left compared to the right, consistent with his symptoms). On examination today, he has no clear resting tremor, but does have bilateral right greater than left bradykinesia and rigidity. He is still most bothered by headaches. -- PARKINSONISM: On in-person examination (10/2021), I felt that there was mild, asymmetric right hemibody parkinsonism. I could not confirm if the medication has been helpful for him since I did not see him prior to initiating medication, and continues to be unsure if there is a benefit. Even if this does represent early idiopathic PD, his symptoms may be too mild to appreciate a difference. He was open to weaning the medication - if symptoms are no worse on a lower dose, I would not consider it a failed levodopa trial, just that the specific bothersome symptoms (headache, right arm pain) arenot responsive. It is also possible that the medication could be triggering headaches, since I don't have another clear etiology. - discussed tapering carbidopa-levodopa 25/100mg tablets: 2 --> 1 tablet TID for 1 week, then stop - encouraged exercise and physical activity as much as tolerated -- RESTLESS LEGS SYNDROME: increased risk given parkinsonism, but symptoms have remained stable with the current dosage of medication. - continue with gabapentin 300mg BID -- RIGHT ARM PAIN / PARASTHESIA: notes bothersome pain intermittently in the right arm - could be related to parkinsonism since that is the more affected side, however could also be a separate radiculopathy related to cervical spinal stenosis or possibly right shoulder osteoarthritis. After meetingwith the providers in the spine clinic, the plan is to try conservative treatment with PT, and thenconsider injections if that does not help. - appreciate recommendations from the spine clinic - continues with gabapentin 300mg twice a day; can adjust if he does not find this to be helpful -- HEADACHES: the description is inconsistent with migraines; symptoms may represent tension headaches or cervicogenic headaches. Will plan to focus on treatment of neck pain / arthritis and see if headaches respond, rather than adding on a separate treatment. - will monitor to see if this gets better with treatment of the neck - PT, possible injections - and after weaning levodopa - continue Tylenol in the morning, then can use the ketorolac as needed for severe days (but no more than two a week) Return to clinic: 4 months, on-site SUBJECTIVE Reason for consultation/ Chief complaint: Parkinson disease History of Presenting Illness (HPI): Jim Yumiko Gonzalez is a 76 y.o. gentleman who was referred to the [facility] Movement Disorders clinic for evaluation and [...] started on gabapentin. Interval history (last visit 11/08/2021): He continues to have symptoms noted at the last visit - heis most bothered by a constant head and a pain shooting down the right arm. The increase in gabapentin didn't seem to make much of a difference, and the right arm pain is worsening. He was seen in the spine clinic - they reported right UE pain along the C5 dermatome most likely radicular in naturevs pain secondary to pathology intrinsic to the shoulder. On PE, there was a positive response. Hewas previously working with PT on the neck pain but that didn't seem to help much, now he is havingPT focused on the right shoulder. He has not been doing it long enough to appreciate a difference. ROS: A comprehensive 13 system review was [...] leg, and it feels better for a time. - states that he has a headache most of the time - varies from a dull aching to sharp pain, starts in the morning after waking up and then improves when he is walking; takes 1000mg of Tylenol in the morning; no nausea/vomiting, photophobia or phonophobia Current Medications: Outpatient Medications Marked as Taking for the 02/08/22 encounter (Telemedicine) with Aida Lackey MD Medication Sig Dispense Refill ??? acetaminophen (TYLENOL) 500 mg tablet Take 500 mg by mouth every 6 hours as needed for Pain. ??? carbidopa-levodopa (SINEMET) 25-100 mg per tablet Take 2 Tablets by mouth 3 times daily. 540 Tablet 3 ??? cholecalciferol, Vitamin D3, 1,000 unit tablet Take 5,000 Units by mouth daily. ??? cyanocobalamin (VITAMIN B-12) 500 mcg tablet Take 1,000 mcg by mouth daily. ??? fludrocortisone (FLORINEF) 0.1 mg tablet Take 0.1 mg by mouth daily. ??? gabapentin (NEURONTIN) 300 mg capsule Take 1 capsule by mouth 2 times daily. 180 capsule 3 ??? MAGNESIUM ORAL Take 1,000 mg by mouth. 2 500 MG TABS ??? mirabegron (MYRBETRIQ) 25 mg extended release tablet Take by mouth daily. ??? OMEGA-3 330 MG-DHA AND EPA 300 MG-ALGAL OIL 600 MG CAPSULE 3,200 mg daily. Allergies Allergen Reactions ??? Grass Pollen Hay Fever Past Medical History GERD HLD Sleep apnea Hypotension Restless legs syndrome Parkinson disease Past Surgical History Right hip replacement Family History No neurological issues in the family. 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 OBJECTIVE Vital Signs There were no vitals filed for this visit. General Physical Examination Well-appearing, in no acute distress Pleasant and interactive Eyes without icterus or injection. Normocephalic, atraumatic head and neck. Neurological Examination Mental status: Alert appropriate and oriented Normal recall of recent and remote personal and medical history. Normal insight and judgment. Language: Fluent clear speech, intact comprehensive and expressive language. Speech: Mild hypophonia, no dysarthria. Cranial nerves: Extraocular movements are normal No nystagmus in primary or directed gaze appreciated Face appears symmetric in the lower portion, but some drooping of the left eyelid (states this is chronic due to past Lyme disease). Hearing is intact to casual conversation Tongue, palate, sternocleidomastoid, and shoulder shrug function are normal. Motor examination: Normal bulk in all limbs. Slight pronator drift. Normal arm elevation. [id number] reveal no dyssynergia or dysmetria. Decreased facial spontaneity/animation No postural, action, resting tremor. Slight decreased in spontaneous movements in the upper extremities Reflexes (from previous visit) Biceps Triceps BR Patellar Achilles Left 2+ 2+ 1+ 2+ 2+ Right 2+ 2+ 1+ 2+ 2+ Sensory examination (from previous visit) Normal reported crude touch in the distal upper and lower extremities Station/Gait: Deferred today via Telehealth DATA NM MARCELO SPECT (07/18/2021): Abnormal study. Right [...] copays, deductible or coinsurance for this service. The location of the patient : Home Patient location state: Visit Location State: [place] The location of the provider: Office Provider location state: Visit Location State: [place] I spent a total of 35 minutes on the date of this encounter meeting with the patient and reviewing documentation/coordinating care as described in the above note. Time dedicated to this visit was spent on the following activities: Personal review of available imaging Personal review of available laboratory diagnostics Patient/acute care clinical nurse specialist education Scanned health information available from the referring and/or primary provider(s) Review of the pertinent information in the electronic health record Care plan formulation Supportive counseling Aida Lackey MD Attending Physician, Movement Disorders Department of Neurology documented in this encounter Plan of Treatment Upcoming Encounters Date Type Department Care Team (Late st Contact Info) Description 12/05/2023 13:30 EDT Telemedicine [facility] Neurology - [address] [phone] Aida Zaragoza MD [address] [place] [address] [phone] 01/15/2024 9:30 EDT Procedure visit [address] [id number] Aida Zaragoza MD [address] [place] [address] [phone] 01/27/2024 8:15 EDT Telemedicine [address] [phone] Nickie Zaragoza NP [address] [place] [phone] 04/22/2024 8:30 EST Procedure visit [address] [id number] Aida Zaragoza MD [address] [place] [address] [phone] 07/23/2024 8:30 EDT Procedure visit [address] [address] Aida Zaragoza MD [address] [place] [address] [phone] documented as of this encounter Visit Diagnoses Diagnosis Primary parkinsonism ([facility])- Primary Paralysis agitans Restless legs syndrome (RLS) Intractable headache, unspecified chronicity pattern, unspecified headache type Cervicogenic headache Headache Arm paresthesia, right Disturbance of skin sensation documented in this encounter Care Teams Assistant Scientist Relationship Specialty Start Date End Date Bernardo Nichols MD [address] [place] [address] PCP - General 06/10/17 documented as of this encounter
--- OUTSIDE RECORDS SUMMARY | 2023-11-13 12:57 | XMS_ITS | Encounter Summary ---
Author Organization [facility] Address [address] [place] [address] Care Team Providers Care Communications Media Professor Name Role Phone Bernardo Nichols MD Primary Care Provider [phone] Encounter Details Date Type Department Care Team (Late st Contact Info) Description 04/06/2022 Lab Requisition [facility] Pathology & Laboratory Medicine - [address] [address] Scott Jimenez MD [address] [place] [phone] Encounter for other general examination Social History [...] Contact Info) Description 12/05/2023 13:30 EDT Telemedicine [facility] Neurology S [address] 266001 Aida Zaragoza MD [address] [place] [address] [phone] 01/15/2024 9:30 EDT Procedure visit [address] [id number] Aida Zaragoza MD [address] [place] [address] [phone] 01/27/2024 8:15 EDT Telemedicine [address] 328381 Nickie Zaragoza NP [address] [place] [address] [phone] 04/22/2024 8:30 EST Procedure visit [address] 593071 Aida Zaragoza MD [address] [place] [address] [phone] 07/23/2024 8:30 EDT Procedure visit [address] 881651 Aida Zaragoza MD [address] [place] [address], Level 2 [place] [phone] documented as of this encounter Procedures Procedure Name Priority Date/Time Associated Diagnosis Comments SURGICAL PATHOLOGY Today 04/06/2022 13 :01 EST documented in this encounter Results * SURGICAL PATHOLOGY (04/06/2022 13:01 EST) Note to Patient The following pathology results have been interpreted by your pathologist and may be available to you before your health provider has had the opportunity to review them. Please allow time for your provider to receive these results and explore management options, if applicable. 04/11/2022 11:00 [facility] Final Diagnosis A. ARTERY, TEMPORAL, LEFT, BIOPSY: - Negative for arteritis. B. ARTERY, TEMPORAL, RIGHT, BIOPSY: - Mild intimal hypertrophy. - Negative for arteritis. 04/11/2022 11:00 [facility] Attestation By the signature below, the attending physician certifies that they have 1) personally conducted a gross and/or microscopic examination of the described specimen(s), and/or personally interpreted the results of laboratory testing of the described specimen(s), and 2) personally rendered or confirmed the above diagnosis. 04/11/2022 11:00 [facility] at 1100 Clinical History Concern for temporal arteritis 04/11/2022 11:00 [facility] Gross Description A. Received in formalin labelled with proper patient identification (initials N, W) and left temporal artery biopsy is a 0.5 cm in length vessel averaging 0.2 cm in diameter. Entirely submitted intact for further sectioning within histology in A1. B. Received in formalin labelled with proper patient identification (initials N, W) and right temporal artery biopsy is a 0.8 cm in length the vessel averaging 0.2 cm in diameter. The tissue is by bisected and entirely submitted for further sectioning within histology in B1-B2. ALLYSON LANDIS([facility]) 04/10/2022 15:43 04/11/2022 11:[address] [facility] Performing Lab [facility] 04/11/2022 11:[address] [facility] Scanned Images 04/11/2022 11:[address] [facility] Tissue ENTIRE ARTERY / Unknown 04/06/2022 13:01 EST 04/10/2022 8:55 EST Tissue specimen (specimen) ARTERIAL STRUCTURE / Unknown 04/06/2022 13:01 EST 04/10/2022 8:55 EST Scott Jimenez MD PATHOLOGY ORDERA BLES [facility] [address] [place] [address] documented in this encounter Visit Diagnoses Diagnosis Encounter for other general examination documented in this encounter Care Teams Communications Media Professor Relationship Specialty Start Date End Date Bernardo Nichols MD [address] [place] [address] PCP - General 06/10/17 documented as of this encounter
--- OUTSIDE RECORDS SUMMARY | 2023-11-13 12:57 | XMS_ITS | Encounter Summary ---
Author Organization [facility] Address [address] [place] [address] Care Team Providers Care Retail Worker Name Role Phone Bernardo Nichols MD Primary Care Provider [phone] Reason for Visit * Reason Onset Date Comments Medical Records 03/23/2022 Encounter Details Date Type Department Care Team (Late st Contact Info) Description 03/23/2022 Telephone [facility] Neurology - S [address] [id number] Aida Zaragoza MD [address] [place] [address] [address] [place] [phone] Medical Records Social History Tobacco Use Types Packs/Day Years [...] Telephone Encounter - Jessy Escamilla MA - 04/13/2022 0855 EST Office Note received from [facility] including genetic results Placed in MD's folder for review * Telephone Encounter - Aleah Salvador RN - 03/23/2022 1153 EST Noted. * Telephone Encounter - Tammy Hickey - 03/23/2022 1027 EST Tara was calling to confirm the fax number . She will fax out the medical records on behalf of Will . She would like staff to be aware of . Thanks . documented in this encounter Plan of Treatment Upcoming Encounters Date Type Department Care Team (Late st Contact Info) Description 12/05/2023 13:30 EDT Telemedicine [facility] Neurology - S [address] [id number] Aida Zaragoza MD [address] [place] [address] [phone] 01/15/2024 9:30 EDT Procedure visit [facility] Neurology S [address] 100601 Aida Zaragoza MD [address] [place] [address] [phone] 01/27/2024 8:15 EDT Telemedicine [address] 141261 Nickie Zaragoza NP [address] [place] [address] [phone] 04/22/2024 8:30 EST Procedure visit [address] [id number] Aida Zaragoza MD [address] [place] [address] [phone] 07/23/2024 8:30 EDT Procedure visit [address] 229281 Aida Zaragoza MD [address] [place] [address] [phone] documented as of this encounter Visit Diagnoses Not on filedocumented in this encounter Care Teams Retail Worker Relationship Specialty Start Date End Date Bernardo Nichols MD [address] [place] [address] PCP - General 06/10/17 documented as of this encounter
--- OUTSIDE RECORDS SUMMARY | 2023-11-13 12:57 | XMS_ITS | Encounter Summary ---
Author Organization [facility] Address [address] [place] [address] Care Team Providers Care Mlt Name Role Phone Bernardo Nichols MD Primary Care Provider [phone] Reason for Referral * Medication Prior Authorization (Routine/Next Available) - Specialty Report Received Specialty Diagnoses / Procedures [facility]erred To Contact Neurology Diagnoses Sialorrhea Aida Zaragoza MD [address] [place] [address] [address] [place] [phone] [facility] Neurology [address] [address] Referral ID Status Reason Start Date Expiration Date Visits Requested Visits Authorized [id number] Specialty Report Received Medication Prior Authorization 09/13/2022 09/14/2023 4 4 Question Answer Medication to be Prior Authorized: Xeomin ([id number]) up to 200 units for sialorrhea (99531), q12 weeks Comments The purpose of this request is to inform precertification staff that the requested service needs to be reviewed for prior-authorization. Reason for Visit * Reason Comments Procedure Xeomin * Medication Prior Authorization (Routine) - Specialty Report Received Specialty Diagnoses / Procedures Referred By Contac t Referred To Contact Neurology Diagnoses Parkinson disease (HCC-CMS) Hypophonia Sialorrhea Intractable headache, unspecified chronicity pattern, unspecified headache type Restless legs syndrome (RLS) Procedures MS OFFICE/OUTPATIENT ESTABLISHED MOD MDM 30-39 MIN MS CHEMODENERVATION PAROTID/SUBMANDIBULAR SALIVARY GLANDS,BILATERAL PBCLEAR HC - OFFICE/OUTPATIENT ESTABLISHED MOD MDM 30-39 MINS HC - CHEMODENERV PAROTID&SUBMANDIBL SALIVARY GLNDS HC - INCOBOTULINUMTOXINA, 1 UNIT Aida Zaragoza MD [address] [place] [phone] Aida Zaragoza MD [address] [place] [phone] Referral ID Status Reason Start Date Expiration Date V isits Requested Visits Authorized [id number] Specialty Report Received 08/14/2022 08/15/2023 4 4 Encounter Details Date Type Department Care Team ([facility] st Contact Info) Description 09/13/2022 15:30 EDT Procedure visit [facility] Neurology - S [address] [address] Aida Zaragoza MD [address] [place] [phone] Parkinson disease (Primary Dx); Sialorrhea; Restless legs syndrome (RLS); Other fatigue Social History Tobacco Use Types Packs/Day Years [...] * Patient Instructions* Aida Zaragoza MD - 09/13/2022 15:30 EDT - use atropine drops - it should say UNDER THE TONGUE - 1-2 drops up to 3 times per day as neededif you are drooling a lot despite these injections - remember injections take 1-2 weeks to peak, so could take a little time - continue with selegiline 5mg tablets: 1 tablet 2 times per day - add carbidopa-levodopa (Sinemet): Before breakfast Before lunch Before dinner Week 1 1/2 1/2 1/2 Week 2 1 1 1 Week 3 1.5 1.5 1.5 Week 4 2 2 2 - if still no improvement with selegiline + Sinemet, let me know and we can talk about increasing the dose further - lastly, find out if your [facility] doctor can send a referral to [facility]; otherwise, let me know and I can easily send it but will go through Medicare documented in this encounter Ordered Prescriptions Prescription Sig Dispensed Refills Start Date End Da te atropine 1 % ophthalmic solution Use 1-2 drops up to 3 times per day UNDER THE TONGUE as needed for excessive salivation 5 mL 2 09/13/2022 carbidopa-levodopa (SINEMET) 25-100 mg per tablet Take 0.5 Tablets by mouth 3 times daily after meals for 7 days, THEN 1 Tablet 3 times daily after meals for 7 days, THEN 1.5 Tablets 3 times daily after meals for 7 days, THEN 2 Tablets 3 times daily after meals for 30 days. 243 Tablet 2 09/13/2022 11/03/2022 documented in this encounter Progress Notes * Aida Zaragoza MD - 09/13/2022 1530 EDT Images from the original note were not included. Type of visit: Follow-up visit Clinician Requesting Consultation: Aida Zaragoza MD 1 [facility], Level [address] [place] [address] Primary Inspector Final Assembly Electrical: Bernardo Minaya [facility] [address] ASSESSMENT & PLAN / RECOMMENDATIONS 1. Parkinson disease (HCC-CMS) (HCC) 2. Sialorrhea AMB CONS/FOLLOW UP CLINIC ADMIN MED PRIOR AUTHORIZATION REQUEST 3. Restless legs syndrome (RLS) 4. Other fatigue Jim Gonzalez is a 76 y.o. gentleman who returns to the [facility] clinic for evaluation and [...] etiology for these symptoms. -- PARKINSON DISEASE: at least 3 years [...] at this time. I suggested he retry levodopa, as this is really the best overall option for treating symptoms of PD, and perhaps could work better now that he is feeling better and is concurrently on selegiline. He also expressed interestedin participating in the BIG program, and will try to [facility] a referral through [facility]. - continue with selegiline 5mg tablets: 1 tablet BID - add carbidopa-levodopa 25/100mg tablets: start with 1/2 tablet TID before meals and increase weekly to a goal dose of 2 tablets TID before meals; contingency to increase further or add more doses as needed - encouraged exercise and physical activity as much as tolerated; he will request a referral to [facility] for [facility] program through the [place] (or let me know if he needs a script) -- SIALORRHEA: ongoing and bothersome,increased salivation during [...] - Xeomin injections performed today for sialorrhea, repeat q12 weeks; new PA placed for increased dosage given lack of benefits / side effects so far - atropine drops provided for sublingual use -- HEADACHES: no clear etiology, but these have improved even after weaning off prednisone and stopping topiramate. I previously did not think his description was that of migraine, and it is not clear that a low dose of topiramate had been helpful so we will continue with [...] could also represent bradyphrenia related to parkinsonism. Will plan to monitor after re-introducing levodopa, to seeif it may be responsive before considering other treatment. If necessary, could consider the addition of a stimulant to help with fatigue. -- RESTLESS LEGS SYNDROME: increased risk [...] Presenting Illness (HPI): Jim Gonzalez is a 76 y.o. gentleman who was referred to the [facility] clinic for evaluation and [...] months - started on gabapentin. Interval history: No clear improvement in salivation with the first injections. He continues to experience PD symptosm that are bothersome to him - slowness of movement, decreased mobility and worsening balance, brain fog, and excess salivation. He is not sure that the selegiline has helped with this. He continues to use his CPAP consistently, though is not sure that this has made any difference.He recently had an updated evaluation at the sleep clinic, and they made some minor adjustments to settings. Last injections: Date: 06/21/2022 Benefit: No sustained benefits Side effects: Denies ROS: A comprehensive 13 [...] Outpatient Medications Marked as Taking for the 09/13/22 encounter (Procedure visit) with Gabriel Zaragoza MD [...] Take 0.1 mg by mouth daily. ??? MAGNESIUM ORAL Take 1,000 mg by mouth. 2 500 MG TABS ??? MELATONIN ORAL Take 3 mg by mouth at bedtime. ??? OMEGA-3 330 MG-DHA AND EPA 300 MG-ALGAL OIL 600 MG CAPSULE 3,200 mg daily. ??? thiamine HCl (VITAMIN B-1 ORAL) Take by mouth. ??? vibegron (GEMTESA) 75 mg tablet Take 75 mg by mouth daily. Allergies Allergen Reactions ??? Grass Pollen Hay Fever Past Medical History GERD HLD Sleep apnea - uses CPAP Hypotension Restless legs syndrome Parkinson disease Past Surgical History Right hip replacement Family History No neurological issues in the family. 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 While writing, he has a slight tremor in the right hand. Slight decreased in [...] side effects were reviewed with the patient/responsible green party. A pre-procedure verification was conducted prior to the procedure. The patient???s identity, procedure, and when applicable the side/site, patient position,availability of implants and any special equipment or special requirements was verbally confirmed prior to the procedure. Informed consent was obtained on 09/13/2022 after discussing potential benefits, alternative treatments, consequences [...] Vial 1: Xeomin 100 unit vial [[facility] 9965-9829-05] Lot #: [id number] Exp: The patient tolerated the procedure well. There were no immediate complications. In addition to performing injections, I spent a total of 30 minutes on the date of this encounter meeting with the patient and reviewing documentation/coordinating care as described in the above note. Time dedicated to this visit was spent on the following activities: Patient/care navigator education Review of the pertinent information in the electronic health record Care plan formulation Supportive counseling Scanned health information available from the referring and/or primary provider(s) Aida Lackey MD Attending Physician, Movement Disorders Department of Neurology documented in this encounter Plan of Treatment Upcoming Encounters Date Type Department Care Team (Late st Contact Info) Description 12/05/2023 13:30 EDT Telemedicine [facility] Neurology S [address] [id number] Aida Zaragoza MD [address] [place] [address] [phone] 01/15/2024 9:30 EDT Procedure visit [facility] Neurology [address] [id number] Aida Zaragoza MD [address] [place] [address] [phone] 01/27/2024 8:15 EDT Telemedicine [facility] Neurology S [address] [phone] Nickie Zaragoza NP [address] [phone] 04/22/2024 8:30 EST Procedure visit [facility] Neurology S [address] [id number] Aida Zaragoza MD [address] [place] [address] [phone] 07/23/2024 8:30 EDT Procedure visit [address] [id number] Aida Zaragoza MD [address] [place] [phone] Scheduled Referrals Name Type Priority Associated Diagnoses Order Schedule AMB CONS/FOLLOW UP CLINIC ADMIN MED PRIOR AUTHORIZATION REQUEST Outpatient Referral Routine/Next Available Sialorrhea Expected: 10/13/2022 (Approximate), Expires: 09/14/2023 documented as of this encounter Visit Diagnoses Diagnosis Parkinson disease ([facility])- Primary Paralysis agitans Sialorrhea Disturbance of salivary secretion Restless legs syndrome (RLS) Other fatigue documented in this encounter Discontinued Medications Medication Sig Discontinue Reason Start Date End Da te carbidopa-levodopa (SINEMET) 25-100 mg per tablet Take 2 Tablets by mouth 3 times daily. Reorder 01/05/2022 09/13/2022 documented as of this encounter Historical Medications * This list may reflect changes made after this encounter. Medication Sig Dispensed Refills Start Date End Date MELATONIN ORAL Take 3 mg by mouth at bedtime. thiamine HCl (VITAMIN B-1 ORAL) Take by mouth. vibegron (GEMTESA) 75 mg tablet Take 1 Tablet by mouth daily. added in this encounter Care Teams Mlt Relationship Specialty Start Date End Date Bernardo Nichols MD [address] [place] [address] PCP - General 06/10/17 documented as of this encounter
--- OUTSIDE RECORDS SUMMARY | 2023-11-13 12:57 | XMS_ITS | Encounter Summary ---
Author Organization [facility] Address [address] [place] [address] Care Team Providers Care Director Records Management Name Role Phone Bernardo Nichols MD Primary Care Provider [phone] Reason for Visit * Reason Onset Date Comments Appointment Related 11/05/2022 Encounter Details Date Type Department Care Team (Late st Contact Info) Description 11/05/2022 Telephone [facility] Neurology - S [address] 361951 Aida Zaragoza MD [address] [place] [address] Level 2 [place] [phone] Appointment Related Social History Tobacco [...] encounter Miscellaneous Notes * Telephone Encounter - Karissa Choudhury - 11/05/2022 1112 EDT Jim called to change his 12/06 9am appt due to a conflict- New appt is scheduled for 01/24 at 9:30am Moved other appts out for 12 weeks documented in this encounter Plan of Treatment Upcoming Encounters Date Type Department Care Team (Late st Contact Info) Description 12/05/2023 13:30 EDT Telemedicine [facility] Neurology S [address] [id number] Aida Zaragoza MD [address] [place] [address] [phone] 01/15/2024 9:30 EDT Procedure visit [address] [id number] Aida Zaragoza MD [address] [place] [address] [phone] 01/27/2024 8:15 EDT Telemedicine [facility] Neurology [address] 982321 Nickie Zaragoza NP [address] [place] [address] [phone] 04/22/2024 8:30 EST Procedure visit [facility] Neurology - S [place] [address] [place], [place] 490891 Aida Zaragoza MD [address] [place] [address] [phone] 07/23/2024 8:30 EDT Procedure visit [facility] Neurology S [address] [phone] Aida Zaragoza MD [address] [place] [phone] documented as of this encounter Visit Diagnoses Not on filedocumented in this encounter Care Teams Director Records Management Relationship Specialty Start Date End Date Bernardo Nichols MD [address] [place] [address] PCP - General 06/10/17 documented as of this encounter
--- OUTSIDE RECORDS SUMMARY | 2023-11-13 12:57 | XMS_ITS | Encounter Summary ---
Author Organization [facility] Address [address] [place] [address] Care Team Providers Care Tool Design Draftsperson Name Role Phone Bernardo Nichols MD Primary Care Provider [phone] Reason for Visit * (Routine/Next Available) - Receiving Office to Obtain Authorization Specialty Diagnoses / Procedures Referred By Contac t Referred To Contact Procedures CT OUTSIDE IMAGES NEURO Imaging, External Referral ID Status Reason Start Date Expiration Date Visits Requested Visits Authorized [id number] Receiving Office to Obtain Authorization 2 1 1 Encounter Details Date Type Department Care Team (Latest Contact Info) Description 03/22/2022 - 03/22/2022 0:04 EST Hospital Encounter [facility] Secondary Reads [place] Discharge Disposition: Home [...] Contact Info) Description 12/05/2023 13:30 EDT Telemedicine [address] 828571 Aida Zaragoza MD [address] [place] [address] [phone] 01/15/2024 9:30 EDT Procedure visit [address] [id number] Aida Zaragoza MD [address] [place] [address] [phone] 01/27/2024 8:15 EDT Telemedicine [address] [phone] Nickie Zaragoza NP [address] [place] [address] [phone] 04/22/2024 8:30 EST Procedure visit [address] [id number] Aida Zaragoza MD [address] [place] [address] [phone] 07/23/2024 8:30 EDT Procedure visit [address] 842051 Aida Zaragoza MD [address] [place] [address] [phone] documented as of this encounter Procedures Procedure [...] on filedocumented in this encounter Care Teams Tool Design Draftsperson Relationship Specialty Start Date End Date Bernardo Nichols MD [address] [place] [address] PCP - General 06/10/17 documented as of this encounter
--- OUTSIDE RECORDS SUMMARY | 2023-11-13 12:57 | XMS_ITS | Encounter Summary ---
Author Organization [facility] Address [address] [place] [address] Care Team Providers Care Piler Name Role Phone Bernardo Nichols MD Primary Care Provider [phone] Reason for Visit * Reason Onset Date Comments Medication Questions 06/22/2022 Encounter Details Date Type Department Care Team (Late st Contact Info) Description 06/22/2022 Telephone [facility] Neurology - S [address] [id number] Aida Zaragoza MD [address] [place] [address] [address] 2 [place] [address] Medication Questions Social History Tobacco [...] Dispensed Refills Start Date End Da te gabapentin (NEURONTIN) 300 mg capsule Take 1 Capsule by mouth at bedtime. 90 Capsule 3 06/26/2022 04/19/2023 documented in this encounter Miscellaneous Notes * Telephone Encounter - Vanesa Ruelas RN - 07/05/2022 1240 EDT Relayed below info from Dr Lackey to Bill, he repeats back the taper instructions. He will update uswith effects in a couple weeks, sooner/prn if needed. Per DR Lackey: if he has 100mg capsules, he can do the following: - 2 capsules (200mg) x 5 days, then - 1 capsule (100mg) x 5 days, then stop * Telephone Encounter - Vanesa Ruelas RN - 07/05/2022 0915 EDT rtc to Power to discuss below info from Dr Lackey. He states he would like to try dc of Gabapentin, He remains w/o RLS and continues to walk x10min prior to HS. He wonders if it might be a good idea todrop from current dose of 300 at bedtime to 100 x 1 week then d/c completely. He is aware that someone will rtc to him after feedback rec'd from Dr Lackey (he does already have supply of 100mg caps. Feedback from Dr Lackey to below portion of thread: This sounds fine - is there anything in particular he would like to do differently? He could stop the gabapentin all together, but there is a possibility that RLS symptoms would worsen. If so, he could then restart. I am not sure if that is what he wants, but could certainly offer. * Telephone Encounter - Vanesa Ruelas RN - 07/04/2022 1502 EDT Power rtnishant, apologizes for not calling sooner. He is now only taking Gabapenting 300mg at HS. He reports that RLS has only occurred on one night he got up and walked for approx 10 min which resolved the sx. Since then, he now walks 10min at HS and has had no subsequent RLS episodes. He would rather exercise prior to bed every night as opposed to continue with Gabapentin. He states that a couple days after dose change he did notice that brain fog was a bit less but still present on and off. He is realizing that it's far more of an issue or noticeable when he's with others and in conversation as opposed to sitting and reading a book which he feels he has no difficulty with. He also states his shoulder pain is worse, he has exercises to do and gets acupuncture weekly whichhelps significantly. He is aware that someone will rtc to him once feedback rec'd from Dr Lackey * Telephone Encounter - Vanesa Ruelas RN - 06/25/2022 1612 EDT rtc to Jim to relay info from Dr Lackey, she would like him to d/c AM dose of Gabapentin and take 300mg at bedtime. New RX pended to reflect change, pt will need refill soon. Asked that he call back in a few days with update, prior to then prn. * Telephone Encounter - Vanesa Ruelas RN - 06/22/2022 1234 EST rtc to Jim to discuss his below query re Gabapentin. It appears there have been shifts in dose/timing of this medication over past year as patient/provider assess efficacy; in addition, in looking at notes, it appears that may have some confusion rethis Today he states that he's taking Gabapentin 300mg BID and has been for quite some time. He states his RLS is much improved/non-existent but his R arm pain remains. He wonders how much the Gabapentin might have an effect on his 'brain fog'. He feels that he wakensw/o it and then about 1h after taking Depakote begins to feel foggy and remains that way all day. He states he sleeps 8-9h/noc in addition to napping for 'several hours' during the day. He drinks 50-60oz fluids/24h though laments that it means he's up to void t/o night. Discussed attempting to get fluids in prior to 1700 in attempt to decrease the need to void t.o night. He c/o having AMEZCUA part of every day last week, none this week, attributes it to effects of long airplane flight. He is aware that this info will be routed to Dr Lackey ad that someone wcb w her feedback Per Darya 04/25/22 note excerpt: RESTLESS LEGS SYNDROME: increased risk given parkinsonism, but symptoms have remained stable with the current dosage of medication. - continue with gabapentin 300mg at bedtime -- RIGHT ARM PAIN / PARASTHESIA: notes - continue with gabapentin 300mg at bedtime, can increase dosage as needed - continue with PT exercises to work on pain, range of motion Content of med list documentation remains at original dose of 300mg BID, RX altered to reflect current dose. Informed Jim that we would need to alter again with any change in dosing tbs he is able to fill when needed. * Telephone Encounter - Mikki Fu - 06/22/2022 1035 EST Jim called in this morning with a question about his medication, gabapentin (NEURONTIN) 300 mg capsule. In his appointment yesterday, he thought he was advised to take 1 gabapentin per day. When he looked at the instructions on his medication they read take one capsule by mouth 2 times daily.He would appreciate some clarification. Please call to advise. Thank You. documented in this encounter Plan of Treatment Upcoming Encounters Date Type Department Care Team (Late st Contact Info) Description 12/05/2023 13:30 EDT Telemedicine [address] [id number] Aida Zaragoza MD [address] [place] [address] [phone] 01/15/2024 9:30 EDT Procedure visit [address] [id number] Aida Zaragoza MD [address] [place] [address] [phone] 01/27/2024 8:15 EDT Telemedicine [address] [id number] Nickie Zaragoza NP [address] [place] [address] [phone] 04/22/2024 8:30 EST Procedure visit [address] 900491 Aida Zaragoza MD [address] [place] [address] [phone] 07/23/2024 8:30 EDT Procedure visit [address] 556671 Aida Zaragoza MD [address] [place] [address] [phone] documented as of this encounter Visit Diagnoses Not on filedocumented in this encounter Discontinued Medications Medication Sig Discontinue Reason Start Date End Da te gabapentin (NEURONTIN) 300 mg capsule Take 1 capsule by mouth 2 times daily. 11/08/2021 06/22/2022 documented as of this encounter Care Teams Piler Relationship Specialty Start Date End Date Bernardo Nichols MD [address] [place] [address] PCP - General 06/10/17 documented as of this encounter
--- OUTSIDE RECORDS SUMMARY | 2023-11-13 12:57 | XMS_ITS | Encounter Summary ---
Author Organization [facility] Address [address] [place] [address] Care Team Providers Care Insurance Agents Supervisor Name Role Phone Bernardo Nichols MD Primary Care Provider [phone] Reason for Visit * Reason Onset Date Comments Medication Questions 09/21/2022 Encounter Details Date Type Department Care Team (Late st Contact Info) Description 09/21/2022 Telephone [facility] Neurology - S [address] [id number] Aida Zaragoza MD [address] [place] [address] [address] 2 [place] [address] Medication Questions Social History Tobacco [...] Telephone Encounter - Aleah Salvador RN - 09/21/2022 1451 EDT Spoke with Jim, reviewed titration of Carbidopa Levodopa with him, common side effects especially GI upset around dose increases. Reviewed recommendation for taking on empty stomach or with a small amount of non-protein food to help buffer and reduce GI side effects. He will increase as directed on prescription, and call or mychart with any questions. * Telephone Encounter - Teo Allen - 09/21/2022 1440 EDT Jim called asking about timing with taking the carbidopa-levodopa (SINEMET) 25-100 mg per tablet around meal times. Transferred him to nurse Kovacs. documented in this encounter Plan of Treatment Upcoming Encounters Date Type Department Care Team (Late st Contact Info) Description 12/05/2023 13:30 EDT Telemedicine [facility] Neurology - S [address] [id number] Aida Zaragoza MD [address] [place] [phone] 01/15/2024 9:30 EDT Procedure visit [facility] Neurology S [address] [id number] Aida Zaragoza MD [address] [place] [phone] 01/27/2024 8:15 EDT Telemedicine [address] [phone] Nickei Zaragoza NP [address] [phone] 04/22/2024 8:30 EST Procedure visit [address] [id number] Aida Zaragoza MD [address] [place] [address] [phone] 07/23/2024 8:30 EDT Procedure visit [address] [id number] Aida Zaragoza MD [address] [place] [address] [phone] documented as of this encounter Visit Diagnoses Not on filedocumented in this encounter Care Teams Insurance Agents Supervisor Relationship Specialty Start Date End Date Bernardo Nichols MD [address] [place] [address] PCP - General 06/10/17 documented as of this encounter
--- OUTSIDE RECORDS SUMMARY | 2023-11-13 12:57 | XMS_ITS | Encounter Summary ---
Author Organization [facility] Address [address] [place] [address] Care Team Providers Care Laboratory Helper Name Role Phone Bernardo Nichols MD Primary Care Provider [phone] Reason for Referral * Medication Prior Authorization (Routine/Next Available) - Closed Specialty Diagnoses / Procedures [facility] To Contact Neurology Diagnoses Sialorrhea Parkinson disease ([facility]) Procedures MD INCOBOTULINUMTOXIN A MD CHEMODENERVATION MUSCLE NECK UNILAT FOR DYSTONIA Aida Zaragoza MD [address] [place] [address], Level [address] [place] [phone] [facility] Neurology [address] [address] Referral ID Status Reason Start Date Expiration Date Visits Requested Visits Authorized [id number] Closed Medication Prior Authorization 06/04/2022 12/02/2022 2 2 Question Answer Medication to be Prior Authorized: Xeomin up to 100 units for sialorrhea, q12 weeks Comments The purpose of this request is to inform precertification staff that the requested service needs to be reviewed for prior-authorization. Reason for Visit * Reason Onset Date Comments New/Evolving Symptoms 05/04/2022 Encounter Details Date Type Department Care Team ([facility] st Contact Info) Description 05/04/2022 Telephone [facility] Neurology - [address] [address] Aida Zaragoza MD 1 [facility], Level 2 [place] [address] New/Evolving Symptoms Social History Tobacco [...] Addendum Note - Aida Zaragoza MD - 06/04/2022 1502 ESTAddended by: AIDA FERMIN on: 06/04/2022 15:02 Modules accepted: Orders * Telephone Encounter - Aida Zaragoza MD - 06/04/2022 0183 EST MEDICATION INFORMATION Medication Name: [] Onabotulinum Toxin A (Botox) J0585 [x] Incobotulinum Toxin A (Xeomin) J0588 [] Rimabotulinum Toxin B (Myobloc) J0587 [] Abobotulinum Toxin A (Dysport) J0586 Medication Strength: [] 50 unit (Botox or Xeomin) [x] 100 unit (Botox or Xeomin) [] 200 unit (Botox) [] 2500 units / 0.5 mL (Myobloc) [] 5000 units / mL (Myobloc) [] 10,000 units / 2 mL (Myobloc) [] 300 unit vial (Dysport) [] 500 unit vial (Dysport) Dosage Form: [] vacuum-dried power (Botox) [x] lypophilized powder (Xeomin or Dysport) [] solution (Myobloc) Dosage Frequency: [x] every 12 weeks [] every 10 weeks Directions for Use: Tentative Injection Plan: bilateral parotid, submandibular glands Total Dose: request up to 100 units Start Date: 06/04/22 End Date: [x] Check if requesting brand. [] Check if request is for continuation of therapy. Is the physician supplying the medication? [] Yes [x] No CPT Codes: [x] 95472 Submandibular / Parotid [] 38547 Head / Face [] 84528 Chronic Migraine [] 19818 Neck [] 11807 One Extremity, 1-4 Muscles [] 65083 Each Additional Extremity, 1-4 Muscles [] 19042 One Extremity, >5 Muscles [] 95404 Each Additional Extremity, >5 Muscles [] 99857 Trunk [] 52123 Axillary [] 79465 Other Area [] 47899 Needle EMG Guidance CLINICAL INFORMATION What is the patient's diagnosis for the medication being requested? [] Chronic Back Pain M54.50 [] Chronic Migraine G43.711 [] Neuromuscular and Autonomic Disorders [] Blepharospasm associated with Dystonia G24.5 [] Cervical Dystonia (Spasmodic Torticollis) G24.3 [] Upper Limb Spasticity [] Lower Limb Spasticity G83.1 [] Other Paralytic Syndrome Following Other Cerebrovascular Disease Affecting [] VII Cranial Nerve Disorders (Hemifacial Spasm, Facial Synkinesis) G51.9 [] Clonic Hemifacial Spasm G51.3 [] Dystonia associated with ONE of the following conditions: [] Focal Upper Limb Dystonia, [employer] Supervisor's Cramp G24.9 [] Oromandibular Dystonia, Orofacial Dyskinesia, Meige Syndrome G24.4 [] Laryngeal Dystonia (adductor spasmodic dystonia) [] Symptomatic (Acquired) Torsion Dystonia G24.9 [] Temporomandbular Joint Dysfunction M26.60 [] Bruxism G47.63 [x] Sialorrhea K11.7 [] Other Diagnosis: ICD-10 Code(s): What medication(s) has the patient tried and failed? [] baclofen (Lioresal,Gablofen) [] tizanidine (Zanaflex) [] methocarbamol (Robaxin) [] benzodiazepines (alprazolam, lorazepam, clonazepam, oxazepam, etc.) [] trihexyphenidyl (Artane) [] benztropine (Cogentin) [] levodopa (Sinamet) [] tetrabenazine (Xenazine) [] deutetrabenazine (Austedo) [] valbenazine (Ingrezza) [] amitriptyline (Elavil) [] venlafaxine (Effexor) [] duloxetine (Cymbalta) [] topiramate (Topamax) [] divalproex sodium (Depakote) [] beta-blockers (atenolol, propranolol, nadolol, timolol, metoprolol) [] calcium channel blockers (verapamil, amlodipine) [] calcitonin gene-related peptides (erenumab, galcanezumab) Neuromuscular/Autonomic Disorder Reauthorization: Is there documentation the patient has had a positive clinical response to botulinum toxin therapy? [] Yes [] No Have at least 3 months elapsed or will have elapsed since the last treatment with botulinum toxin therapy? [] Yes [] No Chronic Migraine Headache Reauthorization: Has the patient experienced a positive response to Botox therapy as demonstrated by a reduction in headache frequency and/or intensity? [] Yes [] No Have the use of acute migraine medications (e.g., NSAIDs, triptans) decreased since the start of Botox therapy? [] Yes [] No Is Botox prescribed by or in consultation with a neurologist or pain specialist? [] Yes [] No Have at least 3 months elapsed or will have elapsed since the last treatment with Botox? [] Yes [] No * Telephone Encounter - Tish Archibald RN - 06/04/2022 1431 EST Spoke w/ Power who would like to proceed w/ botox injections to treat his increased saliva production. Informed him botox is generally well tolerated, and he may have soreness at the injection site. He was wondering if his 06/21/22 TVD appt could be changed to in-person so he could receive the botox at the same time. Advised that PA is needed to be obtained first, and will then reach out to schedule. Power verbalized an understanding. * Telephone Encounter - Tish Archibald RN - 05/31/2022 1416 EST Power called again to f/u on selegiline Rx. Advised him we are waiting to hear back from the Provider. He is hoping for this to be prescribed DARIN. * Telephone Encounter - Tish Archibald RN - 05/29/2022 1526 EST Spoke w/ Power who explained his slowness of movement is mainly when he is getting in bed at night. He is experiencing worsening daytime fatigue, frequent urination (no burning, small amounts, no difficulty w/ initiation of void) 4x/night, foggy brain. Power is wondering if he needs to take levadopa w/ selegiline, or on its own. He would also like to know the side effects of selegiline. He is interested in beginning selegiline. Preferred Pharamacy: [facility] in [place] Power's headache is better since topiramate but he is questioning if he needs to take this medication, as it adds to his list of others. His thoughts were not wanting to take a daily medication if it can be managed w/ ibuprofen or acetaminophen. Power stated he had headaches daily before. Advised the preventative is a good option as PRN analgesics should be limited to 8-10 days/month, otherwise maylead to rebound headaches. Power stated he will continue the topiramate. Power stated he read an article that excess saliva generation could be managed w/ botox. He would like to know if that is an option, if not, what other choices he may have. * Telephone Encounter - Velia Fitzgerald - 05/29/2022 1454 EST Jim called in to speak to nurse Tish regarding the message below. Please call back at your earliest convenience. * Telephone Encounter - Tish Archibald RN - 05/29/2022 1250 EST VM left for Power stating a detailed [employer] message will be sent, and he can respond there or call back. * Telephone Encounter - Juan Pablo Salvador RN - 05/25/2022 1256 EST Symptom Change / Status Update Informant: Jim Symptom update: Slowness of gait, and tremor in left leg worse since last seen 04/25/22. He is wondering if it might be time to start another medication. Sleep fragmentation caused by frequent urination 3-4 times per night. PCP had started him on Myrbetriq. He states doesn't feel it is working. Has PCP follow up next week, will discuss with him. Wondering if needs new sleep study. He sees sleep specialist in [place], uses Cpap, will call sleepspecialist to discuss concerns. Interval changes in health status or other medications: Started self about 4 days ago on 500 mg daily of Vitamin B1 to see if this is helpful for PD symptoms. [facility] medication list reconciled no Medication change: Vitamin B1 500 mg daily Last encounter review/summary (relevant assessment/plan and patient instructions): 1. On your examination, I do still see mild signs of parkinson's. Because the medication didn't seem to help much, and the symptoms (tremor, stiffness, slowness of movement, shuffling gait) are pretty mild, let's hold off on medication and see if we can improve walking with physical therapy a. Please ask physical therapist to work on walk b. We can consider adding a different PD medication in the future depending on how symptoms look 2. I do not think your symptoms or your imaging suggests NPH - normal pressure hydrocephalus 3. The biopsy and labs do not suggest your headaches are from temporal arteritis - that's why Dr Nichols is tapering the prednisone a. I agree with this plan, the prednisone may have helped with any type of headache b. These headaches could be migraines - let's continue with topiramate, and if headaches start to worsen as the prednisone dose is lowered, we can try increasing topiramate Sleep apnea can cause fatigue, grogginess, headaches - so please try to be consistent and use CPAP as much as possible. If ongoing issues with comfort, talk to the sleep team about a different mask, or whatever else they think can be done Recommendations / Actions: follow up with PCP, and sleep provider. Discuss with PT, specific needs around Parkinson's disease and if they have specific exercise that may help him, or if there is a PT in area that has BIG training. Neurology provider review requested Please review Vitamin B1 dose and if this is recommended, or fi pt might benefit from med RX? JUAN PABLO SALVADOR RN 05/25/2022 12:56 * Telephone Encounter - Riley Smith - 05/21/2022 1018 EST Jim calls in and is looking to speak with the nurse. He is looking to start a regime of a high dosage Vitamin B1 to help his Parkinson's symptoms. * Telephone Encounter - Bhanu Jaimes - 05/04/2022 1121 EST Pt calls with new and evolving symptoms. Pt is having slow movements when he is going to bed and when he is getting dressed. Pt states this is worse over the last couple months. Pt also reports an increase in tremors in his left leg. The leg has gotten worse over the last few days. Pt also reports poor sleep and fatigue, this is getting worse over time. Pt wonders if any of this could be connected to a sleep disorder. Pt wants to know if he should geta sleep study done. Pt would like a call back to discuss. documented in this encounter Plan of Treatment Upcoming Encounters Date Type Department Care Team (Late st Contact Info) Description 12/05/2023 13:30 EDT Telemedicine [facility] Neurology [address] [id number] Aida Zaragoza MD [address] [place] [address] [phone] 01/15/2024 9:30 EDT Procedure visit [address] [id number] Aida Zaragoza MD [address] [place] [address] [phone] 01/27/2024 8:15 EDT Telemedicine [address] [id number] Nickie Zaragoza NP [address] [place] [address] [phone] 04/22/2024 8:30 EST Procedure visit [address] [id number] Aida Zaragoza MD [address] [place] [address] [phone] 07/23/2024 8:30 EDT Procedure visit [address] [id number] Aida Zaragoza MD [address] [place] [address], Level [address] [place] [phone] Scheduled Referrals Name Type Priority Associated Diagnoses Order Schedule AMB CONS/FOLLOW UP CLINIC ADMIN MED PRIOR AUTHORIZATION REQUEST Outpatient Referral Routine/Next Available Sialorrhea Parkinson disease Expected: 06/11/2022 (Approximate), Expires: 06/04/2023 documented as of this encounter Visit Diagnoses Diagnosis Sialorrhea- Primary Disturbance of salivary secretion Parkinson disease ([facility]) Paralysis agitans documented in this encounter Care Teams Laboratory Helper Relationship Specialty Start Date End Date Bernardo Nichols MD [address] [place] [address] PCP - General 06/10/17 documented as of this encounter
--- OUTSIDE RECORDS SUMMARY | 2023-11-13 12:57 | XMS_ITS | Encounter Summary ---
Author Organization [facility] Address [address] [place] [address] Care Team Providers Care Philanthropy Officer Name Role Phone Bernardo Nichols MD Primary Care Provider [phone] Reason for Visit * Reason Comments Follow-up Encounter Details Date Type Department Care Team (Late st Contact Info) Description 04/25/2022 16:00 EST Office Visit [facility] - [address] [id number] Aida Zaragoza MD [address] [place] [address], [address] [place] [phone] Parkinson disease (Primary Dx); Intractable headache, unspecified chronicity pattern, unspecified headache type; Restless legs syndrome (RLS); Lumbar radiculopathy; Seizure ([facility]) Social History Tobacco Use Types Packs/Day Years [...] Sign Reading Time Taken Comments Blood Pressure 150/80 04/25/2022 1559 EST Pulse 72 04/25/2022 1559 EST Temperature - - Respiratory Rate 16 04/25/2022 1559 EST Oxygen Saturation 97% 04/25/2022 1559 EST Inhaled Oxygen Concentration - - Weight 79.4 kg (175 lb) 04/25/2022 1559 EST Height - - Body Mass Index 24.41 01/18/2022 1259 EDT documented in this encounter [...] encounter Patient Instructions * Patient Instructions* Aida Lackey MD - 04/25/2022 16:00 EST On your examination, I do still see mild signs of parkinson's. Because the medication didn't seem to help much, and the symptoms (tremor, stiffness, slowness of movement, shuffling gait) are pretty mild, let's hold off on medication and see if we can improve walking with physical therapy Please ask physical therapist to work on walk We can consider adding a different PD medication in the future depending on how symptoms look I do not think your symptoms or your imaging suggests NPH - normal pressure hydrocephalus The biopsy and labs do not suggest your headaches are from temporal arteritis - that's why Dr Nichols is tapering the prednisone I agree with this plan, the prednisone may have helped with any type of headache These headaches could be migraines - let's [...] whatever else they think can be done documented in this encounter Progress Notes * Aida Lackey MD - 04/25/2022 1600 EST Images from the original note were not included. Type of visit: Follow-up visit Clinician Requesting Consultation: Bernardo Nichols MD [address] [place] [address] Primary Strategic Partnership Representative: Bernardo Nichols [address] [facility] [address] ASSESSMENT & PLAN / RECOMMENDATIONS 1. Parkinson disease ([facility]) ([facility]) 2. Intractable headache, unspecified chronicity pattern, unspecified headache type 3. Restless legs syndrome (RLS) 4. Lumbar radiculopathy 5. Seizure ([facility]) ([facility]) Jim Gonzalez is a 76 y.o. gentleman who returns to the [facility] Disorders clinic for evaluation [...] a clear etiology for these symptoms. -- HEADACHES: chronic and persistent at this point, without clear etiology. I previously did not think his description was that of migraine, and it is not clear that a low dose of topiramate has beenhelpful. He was started on prednisone and underwent bilateral temporal artery biopsies (negative for temporal arteritis), and now being weaned off the prednisone. He does find that the headaches are better, though not resolved. We discussed that many different types of headaches might response to steroids, so the improvement is not necessarily diagnostic. - will monitor to see if this remains stable as prednisone is weaned - contingency to increase topiramate dosage to help treat headaches - strongly encouraged that he use the CPAP as much as possible, as untreated sleep apnea can lead to fatigue and headaches - continue Tylenol in the morning, then can use the ketorolac as needed for severe days (but no more than two a week) - may need dilated eye exam by ophthalmology to evaluate optic nerve --> did not appear to have papilledema on my non-dilated exam -- PARKINSON DISEASE: he continues to experience mild, asymmetric right hemibody parkinsonism - this did not seem to worsen much when Mr. Gonzalez was tapered off levodopa. He continues to have a shuffling gait, which I would attribute to parkinsonism rather than a separate diagnosis, including NPH. Since other issues are more pressing at the moment, will not resume treatment at this time. I would not consider this a levodopa failure, as he was only on a low dose and symptoms may be too mild to show a clear response at this time. - hold off on any PD medications at this time, can consider reintroducing in the future if parkinsonism becomes more bothersome - encouraged exercise and physical activity as much as tolerated, can ask PT to work on gait/balance if possible -- RESTLESS LEGS SYNDROME: increased risk given parkinsonism, but symptoms have remained stable with the current dosage of medication. - continue with gabapentin 300mg at bedtime -- RIGHT ARM PAIN / PARASTHESIA: notes bothersome pain intermittently in the right arm, though thishas improved with conservative measures - could be related to parkinsonism since that is the more affected side, however could also be a separate radiculopathy related to cervical spinal stenosis or possibly right shoulder osteoarthritis. After meeting with the providers in the spine clinic, the plan is to try conservative treatment with PT, and then consider injections if that does not help. - continue with gabapentin 300mg at bedtime, can increase dosage as needed - continue with PT exercises to work on pain, range of motion - consider steroid injections is symptoms recur -- REMOTE HISTORY OF REPORTED EPILEPSY: per patient, no seizures in >20 years and he is not currently medicated. Would not resume an AED unless something new were to occur. I do not think he needsongoing care from the Epilepsy clinic at this time. Return to clinic: 4 months, on-site SUBJECTIVE Reason for consultation/ Chief complaint: Parkinson disease History of Presenting Illness (HPI): Jim Gonzalez is a 76 y.o. gentleman who was referred to the [facility] Disorders clinic for evaluation [...] started on gabapentin. Interval history (last visit 02/08/2022): He tells me that his most bothersome symptoms are headache, foggy feeling in the head, balance, and low back pain. He had a spinal tap at [facility] - unclear why this was done specifically, though there was mention of NPH and IIH in some of the notes that were sent. The walking trouble that he describes is fatigue in the legs, thighs, hips. He does not feel like his feet get stuck to the ground. He does not think this improved after the spinal tap. Overall, the headache does seem to have improved. Ophthalmology did a bilateral temporal artery biopsy - results did not show inflammation and markers have been normal. He is still on prednisone but tapering off. Neck pain is better - he is doing exercise and thinks that has helped. He did not get injections and does not think that it is necessary at this point. He has been diagnosed with KARLI and uses a CPAP - somewhere between 50-60% of the time. He saw the sleep specialist in [place] last week and she recommended using it more. He reports discomfort with the mask as a barrier. ROS: A comprehensive 13 system review was [...] Outpatient Medications Marked as Taking for the 04/25/22 encounter (Office Visit) with Aida Lackey MD Medication Sig Dispense [...] 600 MG CAPSULE 3,200 mg daily. ??? PREDNISONE ORAL Take 30 mg by mouth daily. ??? topiramate (TOPAMAX) 25 mg tablet Take 1 Tablet by mouth 2 times daily. 60 Tablet 1 Allergies Allergen Reactions ??? Grass Pollen Hay Fever Past Medical History GERD HLD Sleep apnea - uses CPAP Hypotension Restless legs syndrome Parkinson disease Past Surgical History Right hip replacement Family History No neurological issues in the family. 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 OBJECTIVE Vital Signs Vitals: 04/25/22 1559 BP: (!) 150/80 BP Cuff Location: Left arm BP Patient Position: Sitting BP Cuff Sizes: Adult, regular Pulse: 72 Resp: 16 SpO2: 97% Weight: 79.4 kg (175 lb) Vital signs were reviewed. General Physical Examination Well-appearing, in no acute distress Pleasant and interactive Eyes without icterus or injection. Normocephalic, atraumatic head and neck. Healing incisions on the temples bilaterally from recent biopsy Neurological Examination Mental status: Alert appropriate and oriented Normal recall of recent and remote personal and medical history. Normal insight and judgment. Language: Fluent clear speech, intact comprehensive and expressive language. Speech: Mild hypophonia, no dysarthria. Cranial nerves: Extraocular movements are normal Fundoscopy: disc margins appear sharp, no papilledema No nystagmus in primary or directed gaze appreciated Face appears symmetric in the lower portion, but some drooping of the left eyelid (states this is chronic due to past Lyme disease). Hearing is intact to casual conversation Tongue, palate, sternocleidomastoid, and shoulder shrug function are normal. Motor examination: Normal bulk in all limbs. Slight pronator drift. Normal arm elevation. [id number] reveal no dyssynergia or dysmetria. Decreased facial spontaneity/animation No postural, action, resting tremor. Slight decreased in spontaneous movements in the upper extremities Repetitive movements show slight decrease in speed and amplitude on the right > left. Reflexes (from previous visit) Biceps Triceps BR Patellar Achilles Left 2+ 2+ 1+ 2+ 2+ Right 2+ 2+ 1+ 2+ 2+ Sensory examination (from previous visit) Normal reported crude touch in the distal upper and lower extremities Station/Gait: He is able to rise from a seated position with arms across the chest. Casual gait shows decreased stride length, clearance, and speed - but not magnetic. He is not wide-based. En bloc turning is noted. DATA MRI HEAD (03/2022): No formal report available, [...] and at C4-5 on the right. ATTESTATION I spent a total of 40 minutes on the date of this encounter meeting with the patient and reviewing documentation/coordinating care as described in the above note. Time dedicated to this visit was spent on the following activities: Personal review of available imaging Personal review of available laboratory diagnostics Patient/district manager primary care sales education Scanned health information available from the referring and/or primary provider(s) Review of the pertinent information in the electronic health record Care plan formulation Supportive counseling Aida Lackey MD Attending Physician, Movement Disorders Department of Neurology documented in this encounter Plan of Treatment Upcoming Encounters Date Type Department Care Team (Late st Contact Info) Description 12/05/2023 13:30 EDT Telemedicine [facility] [address] [id number] Aida Zaragoza MD [address] [place] [phone] 01/15/2024 9:30 EDT Procedure visit [address] [id number] Aida Zaragoza MD [address] [place] [phone] 01/27/2024 8:15 EDT Telemedicine [address] [id number] Nickie Zaragoza NP [address] [place] [phone] 04/22/2024 8:30 EST Procedure visit [address] [id number] Aida Zaragoza MD [address] [place] [phone] 07/23/2024 8:30 EDT Procedure visit [facility] - [address] [place] [address] [place], [place] [address] Aida Zaragoza MD [address] [facility], [address] [place] [phone] documented as of this encounter Visit Diagnoses Diagnosis Parkinson disease ([facility])- Primary Paralysis agitans Intractable headache, unspecified chronicity pattern, unspecified headache type Restless legs syndrome (RLS) Lumbar radiculopathy Thoracic or lumbosacral neuritis or radiculitis, unspecified Seizure ([facility]) Other convulsions documented in this encounter Historical Medications * This list may reflect changes made after this encounter. Medication Sig Dispensed Refills Start Date End Date aspirin 81 mg capsule Take by mouth daily. PREDNISONE ORAL Take 30 mg by mouth daily. added in this encounter Care Teams Philanthropy Officer Relationship Specialty Start Date End Date Bernardo Nichols MD [address] [place] [address] PCP - General 06/10/17 documented as of this encounter
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
--- OUTSIDE RECORDS SUMMARY | 2023-11-13 12:58 | XMS_ITS | Encounter Summary ---
Author Organization [facility] Address [address] [place] [address] Care Team Providers Care Shade Bander Name Role Phone Bernardo Nichols MD Primary Care Provider [phone] Reason for Visit * Reason Onset Date Comments Appointment Related 10/30/2021 Encounter Details Date Type Department Care Team (Late st Contact Info) Description 10/30/2021 Telephone [facility] Neurology - [address] [id number] Aida Zaragoza MD [address] [place] [address] [address] [place] [phone] Appointment Related Social History Tobacco [...] on file documented as of this encounter Miscellaneous Notes * Telephone Encounter - Emani Saeed RN - 10/31/2021 1103 EDT Returned call to Jim. Discussed that he was referred to Dr. Lackey because she is a movement disorder specialist and per Dr. Haq's last note, he has a high likelihood of PD. Patient said he just wanted to clarify because he has been referred to a few specialists and couldn't remember who is who. He has no further questions at this time. * Telephone Encounter - Shellie Hansen - 10/30/2021 1536 EDT Jim calling in asking to speak to a nurse as he is unsure why he has a NPV with Dr. Lackey. Please reach out and advise. Thank you. documented in this encounter Plan of Treatment Upcoming Encounters Date Type Department Care Team (Late st Contact Info) Description 12/05/2023 13:30 EDT Telemedicine [facility] Neurology S [address] [id number] Aida Zaragoza MD [address] [place] [address] [phone] 01/15/2024 9:30 EDT Procedure visit [facility] Neurology S [address] [id number] Aida Zaragoza MD [address] [place] [address] [phone] 01/27/2024 8:15 EDT Telemedicine [facility] Neurology S [address] [phone] Nickie Zaragoza NP [address] [place] [address] [phone] 04/22/2024 8:30 EST Procedure visit [facility] Neurology S [address] [id number] Aida Zaragoza MD [address] [place] [address] [address] [place] [phone] 07/23/2024 8:30 EDT Procedure visit [facility] S [address] [id number] Aida Zaragoza MD [address] [place] [phone] documented as of this encounter Visit Diagnoses Not on filedocumented in this encounter Care Teams Shade Bander Relationship Specialty Start Date End Date Bernardo Nichols MD [address] [place] [address] PCP - General 06/10/17 documented as of this encounter
--- OUTSIDE RECORDS SUMMARY | 2023-11-13 12:58 | XMS_ITS | Encounter Summary ---
Author Organization [facility] Address [address] [place] [address] Care Team Providers Care Lab Support Service Tech Name Role Phone Bernardo Nichols MD Primary Care Provider [phone] Reason for Visit * Office Procedure (Routine) - Receiving Office to Obtain Authorization Specialty Diagnoses / Procedures Referred By Contartem t Referred To Contact Neurology Diagnoses Seizures ([facility]) Procedures EEG [facility] Neurophys [address] [place] [id number] Referral ID Status Reason Start Date Expiration Date Visits Requested Visits Authorized [id number] Receiving Office to Obtain Authorization 2 2 Encounter Details Date Type Department Care Team (Latest Contact Info) Description 03/29/2021 9:44 EST - 03/29/2021 23:59 EST Hospital Encounter [facility] - Main [place] [address] [place] [address] Discharge Disposition: Home or Self Care Social [...] tablet Take 5 Tablets by mouth daily. MAGNESIUM ORAL Take 1,000 mg by mouth. 2 500 MG TABS OMEGA-3 330 MG-DHA AND EPA 300 MG-ALGAL OIL 600 MG CAPSULE 3,200 mg daily. UNABLE TO FIND Med Name: 'Restless legs' PRN for restless legs carbidopa-levodopa (SINEMET) 25-100 mg per tablet Take 1 Tab by mouth 3 times daily. 90 Tab 3 08/08/2020 06/06/2021 divalproex ER (DEPAKOTE ER) 500 mg tablet Take 2 Tabs by mouth daily. 10 Tab 08/08/2020 07/24/2021 gabapentin (NEURONTIN) 100 mg capsule Take 1 Cap by mouth 3 times daily. 90 Cap 3 06/21/2020 11/08/2021 ibuprofen (MOTRIN) 200 mg tablet Take 200 mg by mouth every 6 hours as needed. 04/25/2021 mecobal/levomefolat Ca/B6 phos (I-CCURFS-S5-B12 ORAL) Take 2,000 mg by mouth daily. 07/24/2021 methylphenidate HCl (RITALIN;METHYLIN) 10 mg tablet TAKE 1 TABLET BY MOUTH TWICE DAILY MORNING AND NOON 04/07/2020 07/24/2021 TAMSulosin (FLOMAX) 0.4 mg capsule Take 0.4 mg by mouth daily. 07/24/2021 documented as of this encounter Discharge Disposition Disposition Code Departure Means Destination Home or Self Retirement documented in this encounter Plan of Treatment Upcoming Encounters Date Type Department Care Team (Late st Contact Info) Description 12/05/2023 13:30 EDT Telemedicine [facility] [address] [address] Adia Zaragoza MD [address] [place] [address] [phone] 01/15/2024 9:30 EDT Procedure visit [facility] [address] [address] Aida Zaragoza MD [address] [place] [address] [phone] 01/27/2024 8:15 EDT Telemedicine [address] [address]131 Nickie Zaragoza NP [address] [place] [address] [phone] 04/22/2024 8:30 EST Procedure visit [address] [address] Aida Zaragoza MD [address] [place] [address] [phone] 07/23/2024 8:30 EDT Procedure visit [address] [id number] Aida Zaragoza MD [address] [place] [address] [phone] documented as of this encounter Visit Diagnoses Not on filedocumented in this encounter Care Teams Lab Support Service Tech Relationship Specialty Start Date End Date Bernardo Nichols MD [address] [place] [address] PCP - General 06/10/17 documented as of this encounter
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
--- OUTSIDE RECORDS SUMMARY | 2023-11-13 12:58 | XMS_ITS | Encounter Summary ---
Author Organization [facility] Address [address] [place] [address] Care Team Providers Care Tip Cementer Name Role Phone Bernardo Nichols MD Primary Care Provider [phone] Reason for Visit * Reason Onset Date Comments Appointment Related 05/05/2021 Encounter Details Date Type Department Care Team (Late st Contact Info) Description 05/05/2021 Telephone [facility] Neurophysiology - [facility] [address], [place] [address] Naila Anderson, DO [address] [place] [phone] Appointment Related Social History Tobacco Use Types [...] * Telephone Encounter - Sharon Polanco - 05/19/2021 1501 EST Jim called to schedule TVD NPV with Dr. Anderson for 08/22/2021 at 0800 and added to wait list. DX: Seizures ZOOM INVITE NEEDED [phone] Referral assigned. Appt letter sent. * Telephone Encounter - Bhanu Jaimes - 05/05/2021 1125 EST Pt will call back to schedule NPV onsite or video, at [facility] with Justin from [facility] referral cue documented in this encounter Plan of Treatment Upcoming Encounters Date Type Department Care Team (Late st Contact Info) Description 12/05/2023 13:30 EDT Telemedicine [facility] Neurology [address] [address] Aida Zaragoza MD [address] [place] [address] [phone] 01/15/2024 9:30 EDT Procedure visit [address] [id number] Aida Zaragoza MD [address] [place] [address] [phone] 01/27/2024 8:15 EDT Telemedicine [facility] Neurology [address] [id number] Nickie Zaragoza NP [address] [place] [address] [phone] 04/22/2024 8:30 EST Procedure visit [facility] Neurology - S [address] 534391 Aida Zaragoza MD [address] [place] [phone] 07/23/2024 8:30 EDT Procedure visit [facility] S [address] [address] Aida Zaragoza MD [address] [place] [address] [phone] documented as of this encounter Visit Diagnoses Not on filedocumented in this encounter Care Teams Tip Cementer Relationship Specialty Start Date End Date Bernardo Nichols MD [address] [place] [address] PCP - General 06/10/17 documented as of this encounter
--- OUTSIDE RECORDS SUMMARY | 2023-11-13 12:58 | XMS_ITS | Encounter Summary ---
Author Organization [facility] Address [address] [place] [address] Care Team Providers Care Infertility Medical Assistant Name Role Phone Bernardo Nichols MD Primary Care Provider [phone] Encounter Details Date Type Department Care Team (Late st Contact Info) Description 07/27/2020 Telephone [facility] Adult Neurology - [facility] [address], [place] [address] Tania Haq MD [address] [place], [place] [address] Social History Tobacco Use Types Packs/Day Years Used Date Smoking Tobacco: Never Alcohol Use Standard Drinks/Week Comments [...] 15:44 EDT documented as of this encounter Plan of Treatment Upcoming Encounters Date Type Department Care Team (Late st Contact Info) Description 12/05/2023 13:30 EDT Telemedicine [address] [address] Aida Zaragoza MD [address] [place] [address] [phone] 01/15/2024 9:30 EDT Procedure visit [address] 139321 Aida Zaragoza MD [address] [place] [address] [phone] 01/27/2024 8:15 EDT Telemedicine [address] 114281 Nickie Zaragoza NP [address] [place] [address] [phone] 04/22/2024 8:30 EST Procedure visit [address] 072951 Aida Zaragoza MD [address] [place] [address] [phone] 07/23/2024 8:30 EDT Procedure visit [address] 175231 Aida Zaragoza MD [address] [place] [address] [phone] documented as of this encounter Visit Diagnoses Not on filedocumented in this encounter Care Teams Infertility Medical Assistant Relationship Specialty Start Date End Date Bernardo Nichols MD [address] [place] [address] PCP - General 06/10/17 documented as of this encounter
--- OUTSIDE RECORDS SUMMARY | 2023-11-13 12:58 | XMS_ITS | Encounter Summary ---
Author Organization [facility] Address [address] [place] [address] Care Team Providers Care Armed Security Professional Name Role Phone Bernardo Nichols MD Primary Care Provider [phone] Reason for Visit * Reason Comments Telemedicine Video Visit Follow-up Encounter Details Date Type Department Care Team (Late st Contact Info) Description 07/24/2021 15:00 EDT Telemedicine [facility] Adult Neurology - [facility] [address] [place] [address] Tania Haq MD [address] [place] [address] Paresthesia of arm (Primary Dx); Arm paresthesia, right; Parkinson's disease (HCC-CMS) (HCC); Headache disorder Social History Tobacco Use Types Packs/Day Years [...] as of this encounter Progress Notes * Tania Haq MD - 07/24/2021 1500 EDT Neurology Outpatient Follow-up Requesting Provider: Davey Oleary MD Evaluation for: Abnormal movements and occasional numbness in the right arm and leg, Parkinsons Disease, Epilepsy History of Present Illness: Mr.William Yumiko Gonzalez is a 75 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 The [...] phenobarb, then was put on phenobarb monotherapy [id number] (SE: fatigue) so was switched to levetiracetam and carbamazepine [phone] he was not on AEDs for short [...] on 06/08/20 Levodopa 25- 100mg TID with no subjective improvement in symptoms. Headaches were unresponsive to Gabapentin, depakote but has spontaneously resolved. MRI C spine was ordered during last visit 05/17 to bilateral bicep myoclonus but was without spinal canal stenosis and had moderate C3-C4 bilaterally and c4-c5 on the right neuroforaminalnarrowing. Interval History: Is currently taking 2 tabs of sinemet 25-100mg TID and has not noticed any benefit with that. Also had EMG which showed chronic right polycervical and lumbrosacral radiculopathies involving the C8 ,C6, L4 , S1 nerve roots. Is pursueing massage and not interested in interventional pain procedures yet. Headaches are better not needing any help with this. IS also have restless leg symptoms and PCPstarted ropinirole but he hasn't noticed much affect. Still on phenobarbital dose of 45mg at bedtime. Would like to come off the phenobarbital since he reports a lot of fatigue symptoms. He is no longer seeing a movement disorder specialist at [facility]. He reports that he did feel like they looked at his chart prior to his visit and they had very nonchalantly told him to increase Sinemet dose and they appeared flustered. Medications: Current Outpatient Medications Medication ??? acetaminophen (TYLENOL) 500 mg tablet ??? carbidopa-levodopa (SINEMET) 25-100 mg per tablet ??? cholecalciferol, Vitamin D3, 1,000 unit tablet ??? divalproex ER (DEPAKOTE ER) 500 mg tablet ??? fludrocortisone (FLORINEF) 0.1 mg tablet ??? gabapentin (NEURONTIN) 100 mg capsule ??? ketOROLAC (TORADOL) 10 mg tablet ??? MAGNESIUM ORAL ??? mecobal/levomefolat Ca/B6 phos ([id number] ORAL) ??? methylphenidate HCl (RITALIN;METHYLIN) 10 mg tablet ??? mirabegron (MYRBETRIQ) 25 mg extended release tablet ??? OMEGA-3 330 MG-DHA AND EPA 300 MG-ALGAL OIL 600 MG CAPSULE ??? PHENobarbital (LUMINAL) 32.4 mg tablet ??? TAMSulosin (FLOMAX) 0.4 mg capsule ??? [...] MRI scattered white matter changes. 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 07/05/2020 MRI C spine- Multilevel neuroforaminal narrowing [...] block, GERD, COPD, hyperlipidemia, history of epilepsy (last seizure >40 years ago) and spells of slurred speech and right hemibody numbness concerning for seizures without EEG correlate, orthostatic hypotension, abnormal movements of RUE who presents for evaluation of multiple neurological problems. Since her last visit he had a DaTscan that was positive for Parkinson's disease. I initially ordered the scan because he was not responding to Sinemet and was suspicious for possible atypical Parkinson's presentation. Before increasing a dose on televideo I think it would be important to have an inperson exam and at this juncture referring him to the movement disorders clinic would be in his best interest. Regarding his right-sided paresthesias they are likely a result of nerve irritation given his EMG findings and less likely due to his abnormal EEG. I discussed using a targeted approach for diagnostic and therapeutic benefit such as a transforaminal epidural steroid injection but will opted to stay on course with his conservative management with massage therapy. In regards to his focalseizures since he has not had a seizure since 1969 it would be safe to taper off of medications given the recent AAN guidelines for AED discontinuation management. Again this is a risk-benefit discussion that I had with him but would appreciate the epilepsy clinic's recommendation on this. Power also brought to my attention that he has been having restless leg symptoms recently that his primary care provider started him on ropinirole without benefit. He is unsure if there was any lab work conducted like a ferritin level. I recommended starting gabapentin instead to prevent Augmentation which is common when treating patients with ropinirole. Restless leg syndrome is a disorder of central iron deficiency, and patients with RLS can have normal peripheral iron stores with a normal serum ferritin. It is important to differentiate restless leg from restless leg mimics such as positional leg discomfort, venous stasis disorders, akathisia andpolyneuropathy. Other causes of sleep related leg cramps include hypokalemia, hypocalcemia, hypomagnesemia, dehydration, spinal canal stenosis. Medications that can exacerbate symptoms of RLS includemetoclopramide, antipsychotics, antihistamines such as promethazine and antidepressants such as TCAs and SNRIs. Iron replacement therapy should be considered once ferritin levels are less than 75 ng/mL and transferrin saturation is <45% and the choice of IV or oral iron should be individualized based on theclinical scenario, but usually IV iron is recommended if serum ferritin is <100ng/mL. Of the different IV formulations iron dextran,ferumoxytol, iron isomaltoside and ferric carboxymaltose are useful in RLS as a total dose of 1000 mg administered as 1 single or 2 divided doses. While dopamine agonists (pramipexole, ropirinole, rotigotine) have been first- line treatment, theireffectiveness over time diminishes through dopamine-induced augmentation and they are currently undergoing reconsideration as a first-line treatment and gabapentin is recommended as the initial treatment strategy. 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 07/05/2020 MRI Repeat C-spine w/o spinal canal stenos. No EEG correlate, but does not exclude possible focal seizures. -Interventional pain clinic referral for nerve block if his current plan of massage therapy fails Focal seizures: Last seizure in 1970s. Currently on 45mg of phenobarb. His PCP took him off of phenobarb in 2019 briefly and then he got restarted on it. Power wants to titrate off phenopbarb. He has been seen by Dr. Burrows in the past given that patient was having right hemiparesthesia that were thought to be due to focal seizures, but symptoms had no correlate on EEG. Placed referral to epilepsyclinic. RLS-diagnosed by PCP -Please order ferritin, transferrin saturation, TIBC, B12, folic acid, TSH -Recommended starting with gabapentin rather than ropinirole as a way to prevent augmentation I discussed my thoughts as above in detail with my attending Dr. Piña Electronically signed by TANIA HAQ MD 07/09/21 16:17 PGY2 Neurology Resident Pager # [phone] A copy of this note was sent [...] role did participate in today's encounter visit: MD Dr. Wang GILLILAND * Genoveva Piña DO - 07/24/2021 1500 EDT Resident Clinic Supervisory Note Medical complicated patient seen for multiple neurological conditions. MARCELO scan concerning for parkinsonism and he is not responsive to starting doses of senimet. Multiple unremarkable EEG so discussion about coming of AED to see how he does. Headache is under control currently. I personally saw, examined and evaluated Mr.William Yumiko Gonzalez on 07/24/[address] Haq. I agree with Dr. Haq history, examination, assessment and plan. Please refer to her note as above for further details. Genoveva Piña DO 07/24/2021 16:05 documented in this encounter Plan of Treatment Upcoming Encounters Date Type Department Care Team (Late st Contact Info) Description 12/05/2023 13:30 EDT Telemedicine [facility] Neurology [address] [id number] Aida Zaragoza MD [address] [place] [address] [phone] 01/15/2024 9:30 EDT Procedure visit [address] 840181 Aida Zaragoza MD [address] [place] [address] [phone] 01/27/2024 8:15 EDT Telemedicine [address] 994161 Nickie Zaragoza NP [address] [place] [address] [phone] 04/22/2024 8:30 EST Procedure visit [address] 609921 Aida Zaragoza MD [address] [place] [address] [phone] 07/23/2024 8:30 EDT Procedure visit [address] 763471 Aida Zaragoza MD [address] [place] [address] [phone] documented as of this encounter Visit Diagnoses Diagnosis Paresthesia of arm- Primary Disturbance of skin sensation Arm paresthesia, right Disturbance of skin sensation Parkinson's disease ([facility]) Paralysis agitans Headache disorder Headache documented in this encounter Discontinued Medications Medication Sig Discontinue Reason Start Date End Da te divalproex ER (DEPAKOTE ER) 500 mg tablet Take 2 Tabs by mouth daily. Patient Stopped Taking 08/08/2020 07/24/2021 methylphenidate HCl (RITALIN;METHYLIN) 10 mg tablet TAKE 1 TABLET BY MOUTH TWICE DAILY MORNING AND NOON Patient Stopped Taking 04/07/2020 07/24/2021 mecobal/levomefolat Ca/B6 phos (I-[id number]-B12 ORAL) Take 2,000 mg by mouth daily. Patient Stopped Taking 07/24/2021 TAMSulosin (FLOMAX) 0.4 mg capsule Take 0.4 mg by mouth daily. Patient Stopped Taking 07/24/2021 propranolol HCl (PROPRANOLOL ORAL) Take by mouth. Patient Stopped Taking 2021 documented as of this encounter Historical Medications * This list may reflect changes made after this encounter. Medication Sig Dispensed Refills Start Date End Date pyridoxine, vitamin B6, (VITAMIN B6) 50 mg tablet Take 50 mg by mouth daily. 08/24/2021 rOPINIRole (REQUIP) 0.5 mg tablet Take 1 mg by mouth daily. 11/08/2021 propranolol HCl (PROPRANOLOL ORAL) Take by mouth. 022 added in this encounter Care Teams Armed Security Professional Relationship Specialty Start Date End Date Bernardo Nichols MD [address] [place] [address] PCP - General 06/10/17 documented as of this encounter
--- OUTSIDE RECORDS SUMMARY | 2023-11-13 12:58 | XMS_ITS | Encounter Summary ---
Author Organization [facility] Address [address] [place] [address] Care Team Providers Care Human Resources Compliance Manager Name Role Phone Bernardo Nichols MD Primary Care Provider [phone] Reason for Visit * Reason Onset Date Comments Other 06/01/2021 Follow-up 06/01/2021 Medications Refill 06/01/2021 Medications Refill 06/07/2021 Encounter Details Date Type Department Care Team (Late st Contact Info) Description 06/01/2021 Refill [facility] Adult Neurology - [facility] [address] [place], [place] [address] Tania Haq MD [address] [place], [place] [address] Other; Follow-up; Medications Refill; Medications Refill Social History Tobacco Use Types [...] encounter Miscellaneous Notes * Telephone Encounter - Miranda Jensen - 06/07/2021 1313 EST Pt returned call to schedule MARCELO scan. Transferred to radiology. * Telephone Encounter - Lolis Burrows RN - 06/07/2021 0924 EST Returned call and left number. Called to Convey : PCP to order sinemet ( medication refills) now being seen by PCP And Please call radiology /nuclear medicine regarding MARCELO SCAN appt. Per MD. * Telephone Encounter - Lolis Burrows RN - 06/06/2021 1634 EST Spoke with Jim and he wanted to know when his DATSCAN will be scheduled. Routed to scheduling for review. * Telephone Encounter - Mariana Simpson - 06/06/2021 1447 EST Patient called back to speak with Sima the nurse. She was not available so I told the patient that Iwould have the nurse call him back and he was agreeable to that. Thank you * Telephone Encounter - Lolis Burrows RN - 06/06/2021 1234 EST Called and left return number. * Telephone Encounter - Riley Smith - 06/01/2021 1352 EST Bill called because he had a few questions on the DATscan. I let him know the order has been placedand we are waiting on authorization before scheduling. His phone call cut off before he was able to ask his specific clinical questions on the scan. Please try to reach back out to discuss documented in this encounter Plan of Treatment Upcoming Encounters Date Type Department Care Team (Late st Contact Info) Description 12/05/2023 13:30 EDT Telemedicine [facility] Neurology [address] 704771 Aida Zaragoza MD [address] [place] [address] [phone] 01/15/2024 9:30 EDT Procedure visit [address] 908931 Aida Zaragoza MD [address] [place] [address] [phone] 01/27/2024 8:15 EDT Telemedicine [address] 874871 Nickie Zaragoza NP [address] [place] [address] [phone] 04/22/2024 8:30 EST Procedure visit [address] 335291 Aida Zaragoza MD [address] [place] [address] [phone] 07/23/2024 8:30 EDT Procedure visit [address] 214261 Aida Zaragoza MD [address] [place] [phone] documented as of this encounter Visit Diagnoses Not on filedocumented in this encounter Care Teams Human Resources Compliance Manager Relationship Specialty Start Date End Date Bernardo Nichols MD [address] [place] [address] PCP - General 06/10/17 documented as of this encounter
--- OUTSIDE RECORDS SUMMARY | 2023-11-13 12:58 | XMS_ITS | Encounter Summary ---
Author Organization [facility] Address [address] [place] [address] Care Team Providers Care Grant Coordinator Name Role Phone Bernardo Nichols MD Primary Care Provider [phone] Reason for Visit * Radiology Services (Routine/Next Available) - Authorization Not Required Specialty Diagnoses / Procedures Referred By Contac t Referred To Contact Nuclear Medicine Procedures NM DATSCAN WITH SPECT/CT Tania Haq MD [address] [place] [id number] Referral ID Status Reason Start Date Expiration Date Visits Requested Visits Authorized [id number] Authorization Not Required 05/26/2021 1 1 Encounter Details Date Type Department Care Team (Latest Contact Info) Description 07/18/2021 10:38 EDT - 07/18/2021 23:59 EDT Hospital Encounter edical Center Radiology Nuclear Medicine and PET - [facility] [address] [place] [address] Discharge Disposition: Home or Self Care Social [...] 2 Tablets by mouth 3 times daily. 180 Tablet 3 06/06/2021 01/05/2022 divalproex ER (DEPAKOTE ER) 500 mg tablet Take 2 Tabs by mouth daily. 10 Tab 08/08/2020 07/24/2021 fludrocortisone (FLORINEF) 0.1 mg tablet Take 1 Tablet by mouth daily. 04/19/2023 gabapentin (NEURONTIN) 100 mg capsule Take 1 Cap by mouth 3 times daily. 90 Cap 3 06/21/2020 11/08/2021 ketOROLAC (TORADOL) 10 mg tablet Take 1 Tablet by mouth daily as needed for Pain (do not take more than 2 tabs/week for headache pain>5/10). 10 Tablet 04/25/2021 09/05/2021 mecobal/levomefolat Ca/B6 phos (W-UBEULV-N2-B12 ORAL) Take 2,000 mg by mouth daily. 07/24/2021 methylphenidate HCl (RITALIN;METHYLIN) 10 mg tablet TAKE 1 TABLET BY MOUTH TWICE DAILY MORNING AND NOON 04/07/2020 07/24/2021 mirabegron (MYRBETRIQ) 25 mg extended release tablet Take by mouth daily. 024 PHENobarbital (LUMINAL) 32.4 mg tablet Take 45 mg by mouth. 022 TAMSulosin (FLOMAX) 0.4 mg capsule Take 0.4 mg by mouth daily. 07/24/2021 documented as of this encounter Discharge Disposition Disposition Code Departure Means Destination Home or Self Care documented in this encounter Plan of Treatment Upcoming Encounters Date Type Department Care Team (Late st Contact Info) Description 12/05/2023 13:30 EDT Telemedicine [facility] Neurology [address] 989691 Aida Zaragoza MD [address] [place] [address] [phone] 01/15/2024 9:30 EDT Procedure visit [address] 479671 Aida Zaragoza MD [address] [place] [address] [phone] 01/27/2024 8:15 EDT Telemedicine [address] 119081 Nickie Zaragoza NP [address] [place] [address] [phone] 04/22/2024 8:30 EST Procedure visit [address] 588361 Aida Zaragoza MD [address] [place] [address] [phone] 07/23/2024 8:30 EDT Procedure visit [address] 149441 Aida Zaragoza MD [address] [place] [address] [phone] documented as of this encounter Procedures Procedure Name Priority Date/Time Associated Diagnosis Comments NM DATSCAN WITH SPECT/CT Routine 07/18/2021 14:17 EDT documented in this encounter Visit Diagnoses Not on filedocumented in this encounter Administered Medications Inactive Administered Medications - up to 3 most recent administrations Medication Order MAR Action Action Date Dose Rate Site ioflupane (I-123) (DATSCAN) injection 5 millicurie 5 millicurie, radiopharm IV, NOW X1, 1 dose, On Sat07/18/21 at 1445, Routine Given 07/18/2021 11:30 EDT 5.04 millicuries documented in this encounter Orders Medications Ordered That [place] ht Not Have Been Administered Count Last Ordered Date First Ordered Date ioflupane (I-123) (DATSCAN) injection 5 millicurie 1 07/18/2021 documented in this encounter Care Teams Grant Coordinator Relationship Specialty Start Date End Date Bernardo Nichols MD [address] [place] [address] PCP - General 06/10/17 documented as of this encounter
--- OUTSIDE RECORDS SUMMARY | 2023-11-13 12:58 | XMS_ITS | Encounter Summary ---
Author Organization [facility] Address [address] [place] [address] Care Team Providers Care Tent Finisher Name Role Phone Bernardo Nichols MD Primary Care Provider [phone] Reason for Visit * Office Procedure (Routine) - Receiving Office to Obtain Authorization Specialty Diagnoses / Procedures Referred By Contartem t Referred To Contact Neurology Diagnoses Seizures ([facility]) Procedures EEG [facility] [address] [place] [address] Referral ID Status Reason Start Date Expiration Date Visits Requested Visits Authorized [id number] Receiving Office to Obtain Authorization 2 2 Encounter Details Date Type Department Care Team (Latest Contact Info) Description 03/30/2021 10:03 EST - 03/30/2021 23:59 EST Hospital Encounter [facility] Neurophysiology - Main [place] [address] [place] [address] Spells of decreased attentiveness Discharge Disposition: Home or Self Care Social [...] hours as needed. 04/25/2021 mecobal/levomefolat Ca/B6 phos ([id number] ORAL) Take 2,000 mg by mouth daily. 07/24/2021 methylphenidate HCl (RITALIN;METHYLIN) 10 mg tablet TAKE 1 TABLET BY MOUTH TWICE DAILY MORNING AND NOON 04/07/2020 07/24/2021 TAMSulosin (FLOMAX) 0.4 mg capsule Take 0.4 mg by mouth daily. 07/24/2021 documented as of this encounter Discharge Disposition Disposition Code Departure Means Destination Home or Self Care documented in this encounter Procedure Notes * Laquita Malone MD - 03/30/2021 1015 ESTProcedure(s): EEG Images from the original note were not included. [facility] Name: Jim Gonzalez Clinical Neurophysiology Laboratory [address] : 1945 [place], [place] Date: 03/31/2021 Ambulatory Digital EEG Monitoring Report Referring Physician: Dr. Haq Clinical Indication: This is a 75 y.o. man with significant cardiac history,??COPD, and??history offocal epilepsy with spells of slurred speech and right hemibody numbness concerning for seizures. Medications: Current Outpatient Medications Medication ??? acetaminophen (TYLENOL) 500 mg tablet ??? carbidopa-levodopa (SINEMET) 25-100 mg per tablet ??? cholecalciferol, Vitamin D3, 1,000 unit tablet ??? divalproex ER (DEPAKOTE ER) 500 mg tablet ??? gabapentin (NEURONTIN) 100 mg capsule ??? ibuprofen (MOTRIN) 200 mg tablet ??? MAGNESIUM ORAL ??? mecobal/levomefolat Ca/B6 phos (H-[id number]-B12 ORAL) ??? methylphenidate HCl (RITALIN;METHYLIN) 10 mg tablet ??? OMEGA-3 330 MG-DHA AND EPA 300 MG-ALGAL OIL 600 MG CAPSULE ??? TAMSulosin (FLOMAX) 0.4 mg capsule ??? UNABLE TO FIND No current facility-administered medications for this encounter. Technical Description: Ambulatory digital electroencephalographic monitoring is performed utilizing a [employer] ([employer]) recorder. Silver/silver chloride EEG electrodes are placed according to the International 10-20system as well as anterior temporal electrodes, a CPz recording reference and FCz ground contract.An ECG channel is also monitored. The patient is instructed to press and Event Button in the event ofa seizure-like spell (Target Event). The patient is also instructed to maintain an activity log. The entire EEG dataset is reviewed by the attending physician. No pain assessment for this procedure is necessary. Subject factors: None This study is not preceded by an in laboratory EEG study. Findings: 1. The study begins 03/29 at 10:17 and ends at 03/30 at 10:10. Total duration of this recording is 23 hours and 53 minutes. 2. The resting cerebral background is symmetric, reactive, continuous, and well organized with a posterior dominant rhythm of 9-10 Hz that is well regulated and maintained. The background is composedof medium amplitude alpha-theta frequencies with overriding fast activity. 3. There is occasional, mild, intermittent left temporal slowing, represented by polymorphic theta-delta activity (example below). Left temporal slow: 4. There are no clinical push button events, interictal discharges or seizures. 5. All stages of sleep are seen without further abnormalities. 6. Single lead EKG at times showed irregular rhythm. Impression: This is an abnormal 24 hour ambulatory EEG due to the presence of mild left temporal slowing. Clinical Correlation: Focal slowing indicates mild focal cerebrocortical dysfunction and can be seen in the context of an underlying structural abnormality, post-ictal state, infection, migraine, etc. Laquiat Malone MD ABPN Certified, Neurology and Epilepsy 15:32 03/31/2021 documented in this encounter Plan of Treatment Upcoming Encounters Date Type Department Care Team (Late st Contact Info) Description 12/05/2023 13:30 EDT Telemedicine [facility] Neurology [address] [id number] Aida Zaragoza MD [address] [place] [phone] 01/15/2024 9:30 EDT Procedure visit [address] [id number] Aida Zaragoza MD [address] [place] [address] [phone] 01/27/2024 8:15 EDT Telemedicine [address] [id number] Nickie Zaragoza NP [address] [place] [address] [phone] 04/22/2024 8:30 EST Procedure visit [address] [id number] Aida Zaragoza MD [address] [place] [address] 2 [place] [phone] 07/23/2024 8:30 EDT Procedure visit [facility] Neurology - S [address] [id number] Aida Zaragoza MD [address] [place] [address] 2 [place] [phone] documented as of this encounter Visit Diagnoses Diagnosis Spells of decreased attentiveness Other general symptoms documented in this encounter Care Teams Tent Finisher Relationship Specialty Start Date End Date Bernardo Nichols MD [address] [place] [address] PCP - General 06/10/17 documented as of this encounter
--- OUTSIDE RECORDS SUMMARY | 2023-11-13 12:58 | XMS_ITS | Encounter Summary ---
Author Organization [facility] Address [address] [place] [address] Care Team Providers Care Parts Advisor Name Role Phone Bernardo Nichols MD Primary Care Provider [phone] Reason for Visit * Reason Onset Date Comments Results 06/20/2021 Encounter Details Date Type Department Care Team (Late st Contact Info) Description 06/20/2021 Telephone [facility] Adult Neurology - [facility] [address], [place] [address] Tania Haq MD [address] [place], [place] [address] Results Social History Tobacco Use Types Packs/Day Years [...] encounter Miscellaneous Notes * Telephone Encounter - Bannister, Domitila, MA - 06/26/2021 1011 EDT TC to patient to schedule for 60 min follow up with Dr. Haq, scheduled for 07/24 at 3:00 pm Patient bañuelos difficulty with transportation to in person appointments, scheduled as zoom visit. Routing to Dr. Haq to make her aware * Telephone Encounter - Karen Swartz RN - 06/23/2021 1539 EST Patient offered duloxetine or gabapentin for parasthesias. Patient has further questions regarding his EMG past RN scope. Directed message to Dr. Eisenberg and recommending appt follow up. * Telephone Encounter - Darlene Hansen - 06/21/2021 1004 EST Spoke to kajal Fernandez and transferred the call. * Telephone Encounter - Karen Swartz RN - 06/21/2021 0910 EST Images from the original note were not included. Tania Haq MD You; Bernardo Nichols MD 14 hours ago (18:11) Mr Gonzalez, your EMG was abnormal. You have signs that a couple nerves in your arm are being irritated. This is also happening in your right leg. 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 Left message with patient asking for CB to relay EMG results. Did inform over VM that nothing appeared severe to warrant a surgical referral but abnormal information not left in VM. Informed patient that PCP was given this information as well. Patient returned call. Relayed message. Patient wondering what can be done for numbness of right arm/right leg- if there is anything that can be done for him. * Telephone Encounter - Tomasa Christianson - 06/20/2021 1106 EST Jim is calling to find out what the results were from the EMG and what next steps are? Please call Jim to discuss. documented in this encounter Plan of Treatment Upcoming Encounters Date Type Department Care Team (Late st Contact Info) Description 12/05/2023 13:30 EDT Telemedicine [facility] Neurology S [address] 193201 Aida Zaragoza MD [address] [place] [address] [phone] 01/15/2024 9:30 EDT Procedure visit [address] [id number] Aida Zaragoza MD [address] [place] [address] [phone] 01/27/2024 8:15 EDT Telemedicine [address] 278241 Nickie Zaragoza NP [address] [place] [address] [phone] 04/22/2024 8:30 EST Procedure visit [address] 997651 Aida Zaragoza MD [address] [place] [address] [phone] 07/23/2024 8:30 EDT Procedure visit [facility] Neurology [address] [address] Aida Zaragoza MD 1 [facility], Level [address] [place] [phone] documented as of this encounter Visit Diagnoses Not on filedocumented in this encounter Care Teams Parts Advisor Relationship Specialty Start Date End Date Bernardo Nichols MD [address] [place] [address] PCP - General 06/10/17 documented as of this encounter
--- OUTSIDE RECORDS SUMMARY | 2023-11-13 12:58 | XMS_ITS | Encounter Summary ---
Author Organization [facility] Address [address] [place] [address] Care Team Providers Care Torch Straightener Name Role Phone Bernardo Nichols MD Primary Care Provider [phone] Reason for Visit * Reason Onset Date Comments Medication Questions 09/01/2021 Encounter Details Date Type Department Care Team (Late st Contact Info) Description 09/01/2021 Telephone [facility] Adult Neurology - [facility] [address], [place] [address] Tania Haq MD [address] [place], [place] [address] Medication Questions Social History Tobacco Use Types [...] Dispensed Refills Start Date End Da te ketOROLAC (TORADOL) 10 mg tablet Take 1 Tablet by mouth as needed for Pain (do not take more than 2 tabs/week for headache pain>5/10). 10 Tablet 1 09/05/2021 11/08/2021 documented in this encounter Miscellaneous Notes * Addendum Note - Lolis Armstrong RN - 09/05/2021 1500 EDTAddended by: LOLIS ARMSTRONG on: 09/05/2021 15:00 Modules accepted: Orders * Telephone Encounter - Lolis Armstrong RN - 09/05/2021 1455 EDT TC returned by patient. Connected with nursing. Patient concerned due to instructions on medication. Clarification made. New script sent in and removed daily from instructions. Denies any other questions at this time. Refills ROSELINE ketOROLAC (TORADOL) 10 mg tablet 1 No Sig: Take 1 Tablet by mouth as needed for Pain (do not take more than 2 tabs/week for headache pain>5/10). Sent to pharmacy as: ketorolac 10 mg tablet (TORADOL) Class: Normal Route: oral Date/Time Signed: 09/05/2021 14:58 E-Prescribing Status: Receipt confirmed by pharmacy (09/05/2021 14:58 EDT) * Telephone Encounter - Tammy Hickey - 09/05/2021 1453 EDT Pt called in , returning a TC from HALLE Danielle . Transferred over HALLE Wade. * Telephone Encounter - Lolis Armstrong RN - 09/05/2021 1245 EDT Reason for Call: Medication Management TC placed to patient No answer LVM to call back clinic to discuss questions patient may have in regards to ketorolac (toradol) ketOROLAC (TORADOL) 10 mg tablet 0 -- Sig: Take 1 Tablet by mouth daily as needed for Pain (do not take more than 2 tabs/week for headache pain>5/10). Sent to pharmacy as: ketorolac 10 mg tablet (TORADOL) Class: Normal Route: oral Date/Time Signed: 04/25/2021 17:48 E-Prescribing Status: Receipt confirmed by pharmacy (04/25/2021 17:48 EST) * Telephone Encounter - Bhanu Jaimes - 09/01/2021 1312 EDT Pt calls with questions about the ketOROLAC (TORADOL) 10 mg tablet Questions about the dose of this medication. Please call the pt. documented in this encounter Plan of Treatment Upcoming Encounters Date Type Department Care Team (Late st Contact Info) Description 12/05/2023 13:30 EDT Telemedicine [facility] Neurology S [address] [id number] Aida Zaragoza MD [address] [place] [address] [phone] 01/15/2024 9:30 EDT Procedure visit [address] [id number] Aida Zaragoza MD [address] [place] [address] [phone] 01/27/2024 8:15 EDT Telemedicine [facility] Neurology [address] [phone] Nickie Zaragoza NP [address] [place] [address] [phone] 04/22/2024 8:30 EST Procedure visit [facility] [address] 758251 Aida Zaragoza MD [address] [place] [phone] 07/23/2024 8:30 EDT Procedure visit [facility] S [address] [id number] Aida Zaragoza MD [address] [place] [address] [phone] documented as of this encounter Visit Diagnoses Not on filedocumented in this encounter Discontinued Medications Medication Sig Discontinue Reason Start Date End Da te ketOROLAC (TORADOL) 10 mg tablet Take 1 Tablet by mouth daily as needed for Pain (do not take more than 2 tabs/week for headache pain>5/10). 04/25/2021 09/05/2021 documented as of this encounter Care Teams Torch Straightener Relationship Specialty Start Date End Date Bernardo Nichols MD [address] [place] [address] PCP - General 06/10/17 documented as of this encounter
--- OUTSIDE RECORDS SUMMARY | 2023-11-13 12:58 | XMS_ITS | Encounter Summary ---
Author Organization [facility] Address [address] [place] [address] Care Team Providers Care Senior Sales Operations Analyst Name Role Phone Bernardo Nichols MD Primary Care Provider [phone] Reason for Visit * Reason Onset Date Comments Appointment Related 04/10/2021 Encounter Details Date Type Department Care Team (Late st Contact Info) Description 04/10/2021 Telephone [facility] Adult Neurology - [facility] [address] [place], [place] [address]28[address] Tania Haq MD [address] [place], [place] [address] Appointment Related Social History Tobacco Use Types [...] * Telephone Encounter - Darlene Hansen - 04/10/2021 0918 EST Spoke to Jim, scheduled a [facility] TV[facility] appt with Dr. Haq on Saturday04/25/2021 at 4:30 PM. FUR TVD TN: [phone] [email or web address] ZOOM SCHEDULING NEEDED * Telephone Encounter - Domitila Bustamante MA - 04/10/2021 0906 EST LVM with patient to schedule for next available Televideo visit with Dr. Haq, available on 04/25 or 05/10 Please confirm email on file is correct to send meeting info to documented in this encounter Plan of Treatment Upcoming Encounters Date Type Department Care Team (Late st Contact Info) Description 12/05/2023 13:30 EDT Telemedicine [facility] Neurology S [address] [id number] Aida Zaragoza MD [address] [place] [address] [phone] 01/15/2024 9:30 EDT Procedure visit [facility] Neurology S [address] 607781 Aida Zaragoza MD [address] [place] [address] [phone] 01/27/2024 8:15 EDT Telemedicine [facility] Neurology S [address] 897601 Nickie Zaragoza NP [address] [place] [address] [phone] 04/22/2024 8:30 EST Procedure visit [facility] Neurology - S [address] [address] Aida Zaragoza MD [address] [place] [address] 2 [place] [phone] 07/23/2024 8:30 EDT Procedure visit [facility] Neurology S [address] [id number] Aida Zaragoza MD [address] [place] [phone] documented as of this encounter Visit Diagnoses Not on filedocumented in this encounter Care Teams Senior Sales Operations Analyst Relationship Specialty Start Date End Date Bernardo Nichols MD [address] [place] [address] PCP - General 06/10/17 documented as of this encounter
--- OUTSIDE RECORDS SUMMARY | 2023-11-13 12:58 | XMS_ITS | Encounter Summary ---
Author Organization [facility] Address [address] [place] [address] Care Team Providers Care Fountain Helper Name Role Phone Bernardo Nichols MD Primary Care Provider [phone] Reason for Visit * Reason Onset Date Comments Appointment Related 10/27/2020 Encounter Details Date Type Department Care Team (Late st Contact Info) Description 10/27/2020 Telephone [facility] Adult Neurology - [facility] [address] [place], [place] [address] Tania Haq MD [address] [place], [place] [address] Appointment Related Social History Tobacco Use Types [...] * Telephone Encounter - Riley Smith - 10/27/2020 1422 EDT Jim called to schedule [address] Haq on 12/26 at 4pm documented in this encounter Plan of Treatment Upcoming Encounters Date Type Department Care Team (Late st Contact Info) Description 12/05/2023 13:30 EDT Telemedicine [facility] Neurology S [address] 243111 Aida Zaragoza MD [address] [place] [address] [phone] 01/15/2024 9:30 EDT Procedure visit [address] 865781 Aida Zaragoza MD [address] [place] [address] [phone] 01/27/2024 8:15 EDT Telemedicine [address] 277111 Nickie Zaragoza NP [address] [place] [address] [phone] 04/22/2024 8:30 EST Procedure visit [address] 961271 Aida Zaragoza MD [address] [place] [address] [phone] 07/23/2024 8:30 EDT Procedure visit [facility] Neurology [address] 056841 Aida Zaragoza MD 1 [facility], Level [address] [place] [phone] documented as of this encounter Visit Diagnoses Not on filedocumented in this encounter Care Teams Fountain Helper Relationship Specialty Start Date End Date Bernardo Nichols MD [address] [place] [address] PCP - General 06/10/17 documented as of this encounter
--- OUTSIDE RECORDS SUMMARY | 2023-11-13 12:58 | XMS_ITS | Encounter Summary ---
Author Organization [facility] Address [address] [place] [address] Care Team Providers Care Electrician Technician Name Role Phone Bernardo Nichols MD Primary Care Provider [phone] Reason for Visit * Reason Onset Date Comments Medications Refill 01/04/2022 Encounter Details Date Type Department Care Team (Late st Contact Info) Description 01/04/2022 Telephone [facility] Neurology - S [address] 210841 Aida Zaragoza MD [address] [place] [address] 2 [place] [phone] Medications Refill Social History Tobacco Use Types [...] Dispensed Refills Start Date End Da te carbidopa-levodopa (SINEMET) 25-100 mg per tablet Take 2 Tablets by mouth 3 times daily. 540 Tablet 3 01/05/2022 09/13/2022 documented in this encounter Miscellaneous Notes * Telephone Encounter - Aleah Salvador, RN - 01/05/2022 1144 EDT RX for Carbidopa Levodopa 25/100 refilled 90 day supply with 3 refills. Per visit note dated 11/08/21: - continue with carbidopa-levodopa 25/100mg tablets: 2 tablets TID * Telephone Encounter - Bhanu Jaimes - 01/04/2022 0841 EDT Med refill request for the carbidopa-levodopa (SINEMET) 25-100 mg per tablet Pt has 2 days left of meds. [facility] [address] [place], [place] [address] documented in this encounter Plan of Treatment Upcoming Encounters Date Type Department Care Team (Late st Contact Info) Description 12/05/2023 13:30 EDT Telemedicine [facility] Neurology S [address] [id number] Aida Zaragoza MD [address] [place] [address] [phone] 01/15/2024 9:30 EDT Procedure visit [facility] Neurology S [address] 630831 Aida Zaragoza MD [address] [place] [address] [phone] 01/27/2024 8:15 EDT Telemedicine [facility] Neurology S [address] [phone] Nickie Zaragoza NP [address] [phone] 04/22/2024 8:30 EST Procedure visit [facility] Neurology [address] [phone] Aida Zaragoza MD [address] [place] [address] [phone] 07/23/2024 8:30 EDT Procedure visit [address] [phone] Aida Zaragoza MD [address] [place] [address] [phone] documented as of this encounter Visit Diagnoses Not on filedocumented in this encounter Discontinued Medications Medication Sig Discontinue Reason Start Date End Da te carbidopa-levodopa (SINEMET) 25-100 mg per tablet Take 2 Tablets by mouth 3 times daily. Reorder 06/06/2021 01/05/2022 documented as of this encounter Care Teams Electrician Technician Relationship Specialty Start Date End Date Bernardo Nichols MD [address] [place] [address] PCP - General 06/10/17 documented as of this encounter
--- OUTSIDE RECORDS SUMMARY | 2023-11-13 12:58 | XMS_ITS | Encounter Summary ---
Author Organization [facility] Address [address] [place] [address] Care Team Providers Care Education Nurse Name Role Phone Bernardo Nichols MD Primary Care Provider [phone] Encounter Details Date Type Department Care Team (Latest Contact Info) Description 08/08/2020 Travel Social History Tobacco Use Types Packs/Day Years [...] Contact Info) Description 12/05/2023 13:30 EDT Telemedicine [facility] Neurology - S [place] [address] [place] [address]71 Aida Zaragoza MD [address] [place] [address] [phone] 01/15/2024 9:30 EDT Procedure visit [address] [address] Aida Zaragoza MD [address] [place] [address] [phone] 01/27/2024 8:15 EDT Telemedicine [address] 473581 Nickie Zaragoza NP [address] [place] [address] [phone] 04/22/2024 8:30 EST Procedure visit [address] 303231 Aida Zaragoza MD [address] [place] [address] [phone] 07/23/2024 8:30 EDT Procedure visit [address] 636651 Aida Zaragoza MD [address] [place] [address] [phone] documented as of this encounter Visit Diagnoses Not on filedocumented in this encounter Care Teams Education Nurse Relationship Specialty Start Date End Date Bernardo Nichols MD [address] [place], [place] [address] PCP - General 06/10/17 documented as of this encounter
--- OUTSIDE RECORDS SUMMARY | 2023-11-13 12:58 | XMS_ITS | Encounter Summary ---
Author Organization [facility] Address [address] [place] [address] Care Team Providers Care Relay Operator Name Role Phone Bernardo Nichols MD Primary Care Provider [phone] Reason for Referral * Consult (See Order Priority) - Authorization Not Required Specialty Diagnoses / Procedures Referred By Contac t Referred To Contact Orthopedic Surgery Diagnoses Cervical radiculopathy Aida Zaragoza MD [address] [place] [phone] [facility] Ortho Spine [address] [place] [address] Referral ID Status Reason Start Date Expiration Date Visits Requested Visits Authorized [id number] Authorization Not Required Specialty Services Required 2 1 1 Question Answer Reason for Request: Patient with Parkinson disease, also noting right arm pain and parasthesias, has cervical degenerative disc disease on MRI and radicular findings on EMG. Please evaluate and treat Reason for Visit * Reason Comments New Patient Visit * Consult (See Order Priority) - Order Cancelled Specialty Diagnoses / Procedures Referred By Contac t Referred To Contact Neurology Diagnoses Parkinson's disease ([facility]) Genoveva Piña DO [address] [place] [phone] Aida Zaragoza MD [address] [place] [address], [facility] [address] [place] [address] Referral ID Status Reason Start Date Expiration Date Visits Requested Visits Authorized [id number] Order Cancelled Specialty Services Required 07/24/2021 1 1 Encounter Details Date Type Department Care Team (Late st Contact Info) Description 11/08/2021 15:30 EDT Office Visit [facility] Neurology - [address] [id number] Aida Zaragoza MD [address] [place] [address] 2 [place] [address] Parkinson disease (HCC-CMS) (HCC) (Primary Dx); Cervical radiculopathy; Lumbar radiculopathy; Restless legs syndrome (RLS) Social History Tobacco Use Types Packs/Day Years Used Date Smoking Tobacco: Former Cigarettes 2 10 1 0 - 1969 Smokeless Tobacco: Never Alcohol Use Standard [...] Sign Reading Time Taken Comments Blood Pressure 124/68 11/08/2021 1535 EDT Pulse 91 11/08/2021 1535 EDT Temperature - - Respiratory Rate 14 11/08/2021 1535 EDT Oxygen Saturation 96% 11/08/2021 1535 EDT Inhaled Oxygen Concentration - - Weight 81.6 kg (180 lb) 11/08/2021 1535 EDT Height 180.3 cm (5' 11) 11/08/2021 1535 EDT Body Mass Index 25.1 11/08/2021 1535 EDT documented in this encounter Patient Instructions * Patient Instructions* Aida Lackey MD - 11/08/2021 15:30 EDT 1. I do think there are very mild signs of parkinsonism - this means a) its early in the disease course, and b) the medication may be helping - stick with the medication for now - PD is expected to worsen over time, so we will watch closely. People live for years with PD. 2. 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 You have evidence of this on the EMG and the MRI. - I will send a referral to the spine clinic to discuss management - try to increase gabapentin to help with pain and RLS and headaches: 300mg twice a day - morning and night, we can also then add a midday 3. Headaches- I don't think these are migraines, they could be tension headaches or cervicogenic (meaning, from the spine arthritis). - see if this gets better with treatment of the neck - continue Tylenol in the morning, then can use the ketorolac as needed for severe days (but no more than two a week) documented in this encounter Ordered Prescriptions Prescription Sig Dispensed Refills Start Date End Da te ketOROLAC (TORADOL) 10 mg tablet Take 1 Tablet by mouth as needed for Pain (do not take more than 2 tabs/week for headache pain>5/10). 14 Tablet 1 11/08/2021 gabapentin (NEURONTIN) 300 mg capsule Take 1 capsule by mouth 2 times daily. 180 capsule 3 11/08/2021 06/22/2022 documented in this encounter Progress Notes * Aida Lackey MD - 11/08/2021 1530 EDT Images from the original note were not included. Type of visit: New Patient Consultation Clinician Requesting Consultation: Genoveva Piña DO 1 [facility], Level [address] [place] [address] Primary Reference Archivist: Bernardo Minaya [facility] [id number] ASSESSMENT & PLAN / RECOMMENDATIONS 1. Parkinson disease (HCC-CMS) (HCC) 2. Cervical radiculopathy 3. Lumbar radiculopathy 4. Restless legs syndrome (RLS) Jim Gonzalez is a 76 y.o. gentleman who was referred to the [facility] Movement Disorders clinic for evaluation and management of parkinsonism. He was first evaluated for potential parkinsonism in 2019, though examination was limited by Telehealth. At a subsequent visit in early 2020, it was felt that his right arm tremor and other symptoms were likely related to Parkinson disease, and he was started on carbidopa-levodopa. He has not appreciated a robust response to the medication,though is also unsure as to what it is treating. In July 2021, he underwent DaTscan, which showed reduced uptake bilaterally (though worse on the left compared to the right, consistent with his symptoms). On examination today, he has no clear resting tremor, but does have bilateral right greater than left bradykinesia and rigidity. He is able to ambulate independently, but has some parkinsonian features. -- PARKINSONISM: On examination today, there is asymmetric right hemibody parkinsonism that is fairly mild. 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 I think it would bereasonable to stick with the current medication dosage, and we will monitor for disease progressionover time. We reviewed the natural history of PD, and discussed the importance of physical activityand exercise as much as tolerated. - continue with carbidopa-levodopa 25/100mg tablets: 2 tablets TID - encouraged exercise and physical activity as much as tolerated -- RESTLESS LEGS SYNDROME: increased risk given parkinsonism, management includes checking iron levels / ferritin, dopamine agonists, gabapentin. Since he is already on gabapentin, will increase the dose and see if symptoms respond. -- CERVICAL SPINE STENOSIS: notes bothersome pain intermittently in the right arm - could be related to parkinsonism since that is the more affected side, however could be a separate radiculopathy related to cervical spinal stenosis. Since the EMG and MRI of the neck both show abnormalities, I think it would be reasonable to refer to the spine clinic to evaluate further. - referral to spine clinic to discuss further evaluation and management - try to increase gabapentin to help with pain and RLS and headaches: 300mg twice a day - morning and night, we can also then add a midday -- HEADACHES: the description is inconsistent with migraines; they could be tension headaches or cervicogenic. Will plan to focus on treatment of neck pain / arthritis and see if headaches respond. Increased gabapentin may also be helpful. - will monitor to see if this gets better with treatment of the neck - continue Tylenol in the morning, then can use the ketorolac as needed for severe days (but no more than two a week) Return to clinic: 4 months, on-site SUBJECTIVE Reason for consultation/ Chief complaint: Right arm dysfunction History of Presenting Illness (HPI): Jim Gonzalez is a 76 y.o. gentleman who was referred to the [facility] Movement Disorders clinic for evaluation and management of possible parkinsonism. Accompanied by: unaccompanied Handedness: right-handed Mr. Gonzalez was previously evaluated in the [...] past few months - started on gabapentin. ROS: A comprehensive 13 system review was [...] Outpatient Medications Marked as Taking for the 11/08/21 encounter (Office Visit) with Aida Lackey MD Medication Sig Dispense Refill ??? acetaminophen (TYLENOL) 500 mg tablet Take 500 mg by mouth every 6 hours as needed for Pain. ??? carbidopa-levodopa (SINEMET) 25-100 mg per tablet Take 2 Tablets by mouth 3 times daily. 180 Tablet 3 ??? cholecalciferol, Vitamin D3, 1,000 unit tablet Take 5,000 Units by mouth daily. ??? cyanocobalamin (VITAMIN B-12) 500 mcg tablet Take 1,000 mcg by mouth daily. ??? fludrocortisone (FLORINEF) 0.1 mg tablet Take 0.1 mg by mouth daily. ??? gabapentin (NEURONTIN) 100 mg capsule Take 1 Cap by mouth 3 times daily. (Patient taking differently: Take 300 mg by mouth at bedtime. ) 90 Cap 3 ??? MAGNESIUM ORAL Take 1,000 mg by mouth. 2 500 MG TABS ??? mirabegron (MYRBETRIQ) 25 mg extended release tablet Take by mouth daily. ??? OMEGA-3 330 MG-DHA AND EPA 300 MG-ALGAL OIL 600 MG CAPSULE 3,200 mg daily. Allergies Allergen Reactions ??? Grass Pollen Hay Fever Past Medical History GERD HLD Sleep apnea Hypotension Restless legs syndrome Past Surgical History Right hip replacement Family History No neurological issues in the family. 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 General Physical Examination Well-appearing, in no acute distress Pleasant and interactive Eyes without icterus or injection. Normocephalic, atraumatic head and neck. Neurological Examination Mental status: Alert appropriate and oriented Normal recall of recent and remote personal and medical history. Normal insight and judgment. Language: Fluent clear speech, intact comprehensive and expressive language. Speech: Mild hypophonia, no dysarthria. Cranial nerves: Pupils are symmetric - 3mm Extraocular movements are normal No nystagmus in primary or directed gaze appreciated Normal symmetric facial sensation to touch Face appears symmetric in the lower portion, but some drooping of the left eyelid (states this is chronic due to past Lyme disease). Hearing is intact to casual conversation Tongue, palate, sternocleidomastoid, and shoulder shrug function are normal. Motor examination: Normal bulk in all limbs. Slight pronator drift. Normal arm elevation. Full strength in all muscle groups tested. [id number] reveal no dyssynergia or dysmetria. Decreased facial spontaneity/animation UPDRS-III Motor Examination Section Factor Score 18 Speech 1 -Slight loss of expression, diction and/or volume. 19 Facial expression 2 -Slight but definitely abnormal diminution of facial expression. 20 Tremor at rest: Face, lips, chin 0 -Absent. Hands: right 0 -Absent. Hands: left 0 -Absent. Feet: right 0 -Absent. Feet: left 0 -Absent. 21 Action tremor: right 0 -Absent. left 0 -Absent. 22 Rigidity: Neck 0 -Absent. Upper extremity: right 2 -Mild to moderate. Upper extremity: left 1 -Slight or detectable only when activated by mirror or other movements. Lower extremity: right 0 -Absent. Lower extremity: left 0 -Absent. 23 Finger taps: right 2 -Moderately impaired. Definite and early fatiguing. May have occasional arrests in movement. Finger taps: left 1 -Mild slowing and/or reduction in amplitude. 24 Hand corporate specialist: right 1 -Mild slowing and/or reduction in amplitude. Hand corporate specialist: left 0 -Normal. 25 Hand pronate/supinate: right 1 -Mild slowing and/or reduction in amplitude. left 0 -Normal. 26 Leg agility: right 0 -Normal. left 0 -Normal. 27 Arise from chair 1 -Slow, or may need more than one attempt. 28 Posture 1 -Not quite erect, slightly stooped posture. Could be normal for older person. 29 Gait 1 -Walks slowly, may shuffle with short steps, but no festination (hastening steps) or propulsion. 30 Postural stability 0 -Normal. 31 Body bradykinesia 1 -Minimal slowness, giving movement a deliberate character. Could be normal for some persons. Possibly reduced amplitude. Sec 18 to 31 total: 15 Reflexes: Biceps Triceps BR Patellar Achilles Left 2+ 2+ 1+ 2+ 2+ Right 2+ 2+ 1+ 2+ 2+ Sensory examination: Normal reported crude touch in the distal upper and lower extremities Station/Gait: He is able to rise from a seated position, though slowly. Casual gait shows decreased stride lengthand diane. He has slightly stooped posture. DATA NM MARCELO SPECT (07/18/2021): Abnormal study. [...] right. ATTESTATION I spent a total of 45 minutes on the date of this encounter meeting with the patient and reviewing documentation/coordinating care as described in the above note. Time dedicated to this visit was spent on the following activities: Personal review of available imaging Personal review of available laboratory diagnostics Patient/animal caregiver education Scanned health information available from the referring and/or primary provider(s) Review of the pertinent information in the electronic health record Care plan formulation Supportive counseling Aida Lackey MD Attending Physician, Movement Disorders Department of Neurology documented in this encounter Plan of Treatment Upcoming Encounters Date Type Department Care Team (Late st Contact Info) Description 12/05/2023 13:30 EDT Telemedicine [facility] Neurology S [address] [id number] Aida Zaragoza MD [address] [place] [phone] 01/15/2024 9:30 EDT Procedure visit [facility] Neurology S [address] [id number] Aida Zaragoza MD [address] [place] [phone] 01/27/2024 8:15 EDT Telemedicine [facility] Neurology [address] [id number] Nickie Zaragoza NP [address] [place] [phone] 04/22/2024 8:30 EST Procedure visit [address] [id number] Aida Zaragoza MD [address] [place] [phone] 07/23/2024 8:30 EDT Procedure visit [address] [address] Aida Zaragoza MD [address] [place] [phone] Scheduled Referrals Name Type Priority Associated Diagnoses Orde r Schedule AMB CONS/FOLLOW UP ORTHOPEDICS - [facility] Outpatient Referral Routine/Next Available Cervical radiculopathy Expected: 12/23/2021 (Approximate), Expires: 11/22/2022 documented as of this encounter Visit Diagnoses Diagnosis Parkinson disease ([facility])- Primary Paralysis agitans Cervical radiculopathy Brachial neuritis or radiculitis nos Lumbar radiculopathy Thoracic or lumbosacral neuritis or radiculitis, unspecified Restless legs syndrome (RLS) documented in this encounter Discontinued Medications Medication Sig Discontinue Reason Start Date End Da te gabapentin (NEURONTIN) 100 mg capsule Take 1 Cap by mouth 3 times daily. Reorder 06/21/2020 11/08/2021 ketOROLAC (TORADOL) 10 mg tablet Take 1 Tablet by mouth as needed for Pain (do not take more than 2 tabs/week for headache pain>5/10). Reorder 09/05/2021 11/08/2021 rOPINIRole (REQUIP) 0.5 mg tablet Take 1 mg by mouth daily. Patient Stopped Taking 11/08/2021 PHENobarbital (LUMINAL) 32.4 mg tablet Take 1.5 Tablets by mouth daily. Daily Max: 48.6 mg Patient Stopped Taking 08/21/2021 11/08/2021 documented as of this encounter Care Teams Relay Operator Relationship Specialty Start Date End Date Bernardo Nichols MD [address] [place] [address] PCP - General 06/10/17 documented as of this encounter
--- OUTSIDE RECORDS SUMMARY | 2023-11-13 12:58 | XMS_ITS | Encounter Summary ---
Author Organization [facility] Address [address] [place] [address] Care Team Providers Care Vest Backer Name Role Phone Bernardo Nichols MD Primary Care Provider [phone] Reason for Visit * Reason Onset Date Comments Paperwork request 08/19/2020 Encounter Details Date Type Department Care Team (Late st Contact Info) Description 08/19/2020 Telephone [facility] Adult Neurology - [facility] [address] [place], [place] [address] Tania Haq MD [address] [place], [place] [address] Paperwork request Social History Tobacco Use Types Packs/Day Years [...] 15:44 EDT documented as of this encounter Miscellaneous Notes * Telephone Encounter - Domitila Bustamante MA - 08/19/2020 1430 EDT Received fax with [facility] evaluation report requesting that Dr. Haq review and sign the report and fax back to their office Placed in Dr. Haq's mailbox documented in this encounter Plan of Treatment Upcoming Encounters Date Type Department Care Team (Late st Contact Info) Description 12/05/2023 13:30 EDT Telemedicine [facility] Neurology S [address] [id number] Aida Zaragoza MD [address] [place] [address] [phone] 01/15/2024 9:30 EDT Procedure visit [address] [id number] Aida Zaragoza MD [address] [place] [address] [phone] 01/27/2024 8:15 EDT Telemedicine [address] [id number] Nickie Zaragoza NP [address] [place] [address] [phone] 04/22/2024 8:30 EST Procedure visit [address] [id number] Aida Zaragoza MD [address] [place], [place] [address], [place] [phone] 07/23/2024 8:30 EDT Procedure visit [facility] Neurology - S [address] [id number] Aida Zaragoza MD 1 [facility] 2 [place] [phone] documented as of this encounter Visit Diagnoses Not on filedocumented in this encounter Care Teams Vest Backer Relationship Specialty Start Date End Date Bernardo Nichols MD [address] [place] [address] PCP - General 06/10/17 documented as of this encounter
--- OUTSIDE RECORDS SUMMARY | 2023-11-13 12:58 | XMS_ITS | Encounter Summary ---
Author Organization [facility] Address [address] [place] [address] Care Team Providers Care Government Program Manager Name Role Phone Bernardo Nichols MD Primary Care Provider [phone] Reason for Visit * Reason Onset Date Comments Medication Management 08/15/2020 Encounter Details Date Type Department Care Team (Late st Contact Info) Description 08/15/2020 Telephone [facility] Adult Neurology - [facility] [address] [place], [place] [address] Tania aHq MD [address] [place], [place] [address] Medication Management Social History Tobacco Use Types [...] encounter Miscellaneous Notes * Telephone Encounter - Tania Haq MD - 08/16/20201954 EDT Valproic acid did not help headache, went to PT and that helped his headaches since his headache did not reoccur later that day. He said that at PT they did neck massage and that helped. He says thatthe Depakote works as well as ibuprofen 200 mg. Is currently taking ibuprofen 1-2 pills of ibuprofen daily. Advised to hold on ibuprofen to make sure he isn't having NSAID rebound headaches. Is stillconcerned that he is having the intermittent paraesthesias and numbness on his right side. I told him we can discuss the utility of NCT/EMG at our next visit, but his priority is fixing the headache * Telephone Encounter - Delmy Osorio RN - 08/16/2020 1430 EDT Call from patient. He does not think the depakote had any effect. The last day he was taking it, his headache got worse. Since stopping, he has taken ibuprofen which helps a little bit. He went to PTwhich he said also helped. * Telephone Encounter - Delmy Osorio RN - 08/16/2020 1307 EDT Note from last visit 08/08/20 indicates: Occipital headaches -Prescribed valproate at 1000 mg at bedtime for 5 days to abort headaches. If this proves helpful may prescribe valproate 500 mg nightly for headache prevention. Call to patient. Left message requesting a call back. * Telephone Encounter - Riley Smith - 08/15/2020 1445 EDT Bill calling back after taking medication divalproex 500mg for 5 days. He would like a call back todiscuss documented in this encounter Plan of Treatment Upcoming Encounters Date Type Department Care Team (Late st Contact Info) Description 12/05/2023 13:30 EDT Telemedicine [facility] Neurology [address] [id number] Aida Zaragoza MD [address] [place] [phone] 01/15/2024 9:30 EDT Procedure visit [address] 968221 Aida Zaragoza MD [address] [place] [address] [phone] 01/27/2024 8:15 EDT Telemedicine [address] 915011 Nickie Zaragoza NP [address] [place] [address] [phone] 04/22/2024 8:30 EST Procedure visit [address] [id number] Aida Zaragoza MD [address] [place] [address] [phone] 07/23/2024 8:30 EDT Procedure visit [address] 073051 Aida Zaragoza MD [address] [place] [phone] documented as of this encounter Visit Diagnoses Not on filedocumented in this encounter Care Teams Government Program Manager Relationship Specialty Start Date End Date Bernardo Nichols MD [address] [place] [address] PCP - General 06/10/17 documented as of this encounter
--- OUTSIDE RECORDS SUMMARY | 2023-11-13 12:58 | XMS_ITS | Encounter Summary ---
Author Organization [facility] Address [address] [place] [address] Care Team Providers Care Interior Design Faculty Member Name Role Phone Bernardo Nichols MD Primary Care Provider [phone] Reason for Visit * Reason Onset Date Comments Medications Refill 06/01/2021 Encounter Details Date Type Department Care Team (Late st Contact Info) Description 06/01/2021 Refill [facility] Adult Neurology - [facility] [address] [place] [address] Tania Haq MD [address] [place], [place] [address] Medications Refill Social History Tobacco Use Types [...] times daily. 180 Tablet 3 06/06/2021 01/05/2022 documented in this encounter Miscellaneous Notes * Telephone Encounter - Lolis Burrows RN - 06/07/2021 1428 EST Spoke with Jim and he stated the neurologist at [facility] was refilling his medications. No further concerns verbalized. * Telephone Encounter - Rhett Britt - 06/07/2021 1335 EST Jim returning Nurse Sima's call * Telephone Encounter - Lolis Burrows RN - 06/06/2021 1618 EST Rx Refill Request:Carbidopa- levodopa 25-100 mg Take 1 Tab by mouth 3 times daily. Last Filled: 08/08/2020 #of refills -3 Last Office Visit:04/25/2021 Next Office Visit:06/08/2021 Pharmacy: [address] [address] ?? Requested change to what Jim was currently taking. * Telephone Encounter - Bhanu Jaimes - 06/01/2021 1359 EST carbidopa-levodopa (SINEMET) 25-100 mg per tablet Pt calls to report the dose has changed on this med, he now takes 2 tabs 3x per day total 6 per day. Please update the script documented in this encounter Plan of Treatment Upcoming Encounters Date Type Department Care Team (Late st Contact Info) Description 12/05/2023 13:30 EDT Telemedicine [address] [id number] Aida Zaragoza MD [address] [place] [address] [phone] 01/15/2024 9:30 EDT Procedure visit [address] [id number] Aida Zaragoza MD [address] [place] [address] [phone] 01/27/2024 8:15 EDT Telemedicine [address] [phone] Nickie Zaragoza NP [address] [place] [address] [phone] 04/22/2024 8:30 EST Procedure visit [address] [id number] Aida Zaragoza MD [address] [place] [address] [phone] 07/23/2024 8:30 EDT Procedure visit [address] [id number] Aida Zaragoza MD [address] [place] [address] [phone] documented as of this encounter Visit Diagnoses Not on filedocumented in this encounter Discontinued Medications Medication Sig Discontinue Reason Start Date End Da te carbidopa-levodopa (SINEMET) 25-100 mg per tablet Take 1 Tab by mouth 3 times daily. 08/08/2020 06/06/2021 documented as of this encounter Care Teams Interior Design Faculty Member Relationship Specialty Start Date End Date Bernardo Nichols MD [address] [place] [address] PCP - General 06/10/17 documented as of this encounter
--- OUTSIDE RECORDS SUMMARY | 2023-11-13 12:58 | XMS_ITS | Encounter Summary ---
Author Organization [facility] Address [address] [place] [address] Care Team Providers Care Subwarehouse Supervisor Name Role Phone Bernardo Nichols MD Primary Care Provider [phone] Reason for Visit * Reason Onset Date Comments Medication Management 05/05/2021 Encounter Details Date Type Department Care Team (Late st Contact Info) Description 05/05/2021 Telephone [facility] Adult Neurology - [facility] [address] [place], [place] [id number] Tania Haq MD [address] [place], [place] [address] Medication Management Social History Tobacco Use Types [...] Telephone Encounter - Vanesa Ruelas RN - 06/22/2021 1447 EST Noticed that Power never returned call so we could discuss info from Dr Manrique., left him a message on identified line requesting he return a call to our office if he has any questions re medication dosing/timing/combos. * Telephone Encounter - Vanesa Ruelas RN - 05/09/2021 0907 EST Phoned Power to discuss info, below, from Dr Chinchilla, left message on identified line requesting he return call to the office Response from Dr Haq to 05/05/21 message below: The next step would be to try a dose of toradol along with benadryl 25mg (will make him drowsy and sleepy, should not drive a car after dose) with pedialyte. Next step after this would be a medrol dose pack. What phenobarb dose is he at now? If he has titrated off some since our visit can you ask if his headache has improved with a lower dose? Also, has he ever had a sleep apne test * Telephone Encounter - Vanesa Ruelas RN - 05/05/2021 1701 EST Power just wants to be sure he has complete and correct info regarding using Ketorolac and possible options for OTC meds he may have previously used for AMEZCUA pain. He did hear/understand that Dr Haq stated to not take Ibuprofen while he was taking Ketorolac,but wonders if he's used his 2 doses for the week but continues to have AMEZCUA pain >5/10 where he goes from there. In addition, if he decided to no longer take Ketorolac, how many days should he waitbefore taking a different NSAID. I informed him this message would be routed to Dr Manrique and that someone would call him back once we had further info. In the meantime, he will only use Ketorolac. Per RX documentation: Take 1 Tablet by mouth daily as needed for Pain (do not take more than 2 tabs/week for headache pain>5/10)., 10 mg, oral, DAILY PRN Starting Sat04/25/2021, Disp-10 Tablet, R-0, * Telephone Encounter - Theodore Bhanu - 05/05/2021 1050 EST Pt calls to ask questions about dosing for the new med. ketOROLAC (TORADOL) 10 mg tablet Pt wants to know if he is taking the right dose, and why to take it. Pt also wants to know if he can use tylenol or ibuprofen while using teto medication. Please call pt to discuss. documented in this encounter Plan of Treatment Upcoming Encounters Date Type Department Care Team (Late st Contact Info) Description 12/05/2023 13:30 EDT Telemedicine [facility] Neurology S [address] [id number] Aida Zaragoza MD [address] [place] [address] [phone] 01/15/2024 9:30 EDT Procedure visit [address] 220321 Aida Zaragoza MD [address] [place] [address] [phone] 01/27/2024 8:15 EDT Telemedicine [facility] Neurology [address] [id number] Nickie Zaragoza NP [address] [place] [address] [phone] 04/22/2024 8:30 EST Procedure visit [facility] Neurology S [address] 341781 Aida Zaragoza MD [address] [place] [phone] 07/23/2024 8:30 EDT Procedure visit [facility] Neurology [address] [id number] Aida Zaragoza MD [address] [place] [address] [phone] documented as of this encounter Visit Diagnoses Not on filedocumented in this encounter Care Teams Subwarehouse Supervisor Relationship Specialty Start Date End Date Bernardo Nichols MD [address] [place] [address] PCP - General 06/10/17 documented as of this encounter
--- OUTSIDE RECORDS SUMMARY | 2023-11-13 12:58 | XMS_ITS | Encounter Summary ---
Author Organization [facility] Address [address] [place] [address] Care Team Providers Care Outpatient Scheduler Name Role Phone Bernardo Nichols MD Primary Care Provider [phone] Reason for Visit * Reason Onset Date Comments Medication Management 08/18/2021 Encounter Details Date Type Department Care Team (Late st Contact Info) Description 08/18/2021 Telephone [facility] Adult Neurology - [facility] [address] [place], [place] [address] Tania Haq MD [address] [place], [place] [address] Medication Management Social History Tobacco Use Types [...] Miscellaneous Notes * Telephone Encounter - Lolis Parker RN - 08/21/2021 0850 EDT This question was managed and discuss with patient in another encounter. Closing encounter. * Telephone Encounter - Mariana Simpson - 08/18/2021 1503 EDT Patient called in today for a refill on his medication for PHENobarbital (LUMINAL) 32.4 mg tablet. He thought that Dr. Haq was going to schedule him with another doctor to discuss getting off the medication. Please call to advise. Thank you documented in this encounter Plan of Treatment Upcoming Encounters Date Type Department Care Team (Late st Contact Info) Description 12/05/2023 13:30 EDT Telemedicine [facility] Neurology [address] [id number] Aida Zaragoza MD [address] [place] [address] [phone] 01/15/2024 9:30 EDT Procedure visit [address] [id number] Adia Zaragoza MD [address] [place] [address] [phone] 01/27/2024 8:15 EDT Telemedicine [address] [id number] Nickie Zaragoza NP [address] [place] [address] [phone] 04/22/2024 8:30 EST Procedure visit [address] [id number] Aida Zaragoza MD [address] [place] [address] 2 [place] [phone] 07/23/2024 8:30 EDT Procedure visit [facility] Neurology - S [address] [id number] Aida Zaragoza MD [address] [place] [address] 2 [place] [phone] documented as of this encounter Visit Diagnoses Not on filedocumented in this encounter Care Teams Outpatient Scheduler Relationship Specialty Start Date End Date Bernardo Nichols MD [address] [place] [address] PCP - General 06/10/17 documented as of this encounter
--- OUTSIDE RECORDS SUMMARY | 2023-11-13 12:58 | XMS_ITS | Encounter Summary ---
Author Organization [facility] Address [address] [place] [address] Care Team Providers Care First Aid Director Name Role Phone Bernardo Nichols MD Primary Care Provider [phone] Reason for Visit * Radiology Services (Routine/Next Available) - Authorization Not Required Specialty Diagnoses / Procedures Referred By Contac t Referred To Contact Nuclear Medicine Procedures NM DATSCAN WITH SPECT/CT Tania Haq MD [address] [place] [id number] Referral ID Status Reason Start Date Expiration Date Visits Requested Visits Authorized [id number] Authorization Not Required 05/26/2021 1 1 Encounter Details Date Type Department Care Team (Latest Contact Info) Description 07/18/2021 10:38 EDT - 07/18/2021 23:59 EDT Hospital Encounter edical Center Radiology Nuclear Medicine and PET - [facility] [address] [place] [address] Discharge Disposition: Home or Self Care Social [...] 10 Tablet 04/25/2021 09/05/2021 mecobal/levomefolat Ca/B6 phos ([id number] ORAL) Take 2,000 mg by mouth daily. [...] Contact Info) Description 12/05/2023 13:30 EDT Telemedicine [facility] Neurology [address] 284011 Aida Zaragoza MD [address] [place] [address] [phone] 01/15/2024 9:30 EDT Procedure visit [address] 482831 Aida Zaragoza MD [address] [place] [address] [phone] 01/27/2024 8:15 EDT Telemedicine [address] 118831 Nickie Zaragoza NP [address] [place] [address] [phone] 04/22/2024 8:30 EST Procedure visit [address] 738431 Aida Zaragoza MD [address] [place] [address] [phone] 07/23/2024 8:30 EDT Procedure visit [address] 151741 Aida Zaragoza MD [address] [place] [address] [phone] documented as of this encounter Procedures Procedure Name Priority Date/Time Associated Diagnosis Comments NM DATSCAN WITH SPECT/CT Routine 07/18/2021 14:17 EDT documented in this encounter Visit Diagnoses Not on filedocumented in this encounter Orders Medications Ordered That [place] ht Not Have Been Administered Count Last Ordered Date First Ordered Date ioflupane (I-123) (DATSCAN) injection 5 millicurie 1 07/18/2021 documented in this encounter Care Teams First Aid Director Relationship Specialty Start Date End Date Bernardo Nichols MD [address] [place] [address] PCP - General 06/10/17 documented as of this encounter
--- OUTSIDE RECORDS SUMMARY | 2023-11-13 12:58 | XMS_ITS | Encounter Summary ---
Author Organization [facility] Address [address] [place] [address] Care Team Providers Care Refueling Rampman Name Role Phone Bernardo Nichols MD Primary Care Provider [phone] Encounter Details Date Type Department Care Team (Late Contact Info) Description 04/11/2021 Lab Requisition [facility] Pathology & Laboratory Medicine - Main [address] [id number] Outr Resulting Lab, Provider Social History Tobacco Use Types Packs/Day Years Used Date Smoking Tobacco: Former Cigarettes 2 10 0 - 1969 Smokeless Tobacco: Never Alcohol [...] Encounters Date Type Department Care Team (Late Contact Info) Description 12/05/2023 13:30 EDT Telemedicine [facility] Neurology - S [address] 227351 Aida Zaragoza MD [address] [place] [address] [phone] 01/15/2024 9:30 EDT Procedure visit [address] 360251 Aida Zaragoza MD [address] [place] [address] [phone] 01/27/2024 8:15 EDT Telemedicine [address] 508241 Nickie Zaragoza NP [address] [place] [address] [phone] 04/22/2024 8:30 EST Procedure visit [address] 584681 Aida Zaragoza MD [address] [place] [address] [phone] 07/23/2024 8:30 EDT Procedure visit [address] 223271 Aida Zaragoza MD [address] [place] [address] [phone] documented as of this encounter Procedures Procedure Name Priority Date/Time Associated Diagnosis Comments [place] [facility] Routine 04/10/2021 10:30 EST documented in this encounter Results * [place] [facility] (04/10/2021 10:30 EST) Lead 2.1 <=4.9 ug/dL 04/12/2021 12:49 EST [facility] Blood VENOUS BLOOD / Unknown 04/10/2021 10:30 EST 04/11/2021 15:35 EST Narrative [facility] - 04/12/2021 12:49 EST Testing performed using Graphite Furnace Atomic Absorption Spectroscopy. This test was developed and its performance characteristics determined by the [facility]. ??It has not been cleared or approved by the FDA. ??The laboratory is regulated under CLIA as qualified to perform high complexity testing. ??This test is used for clinical purposes. Provider Outr Resulting Lab CHEMISTRY & BLOOD GAS ORDERABLES [facility] [address] [place] [address] documented in this encounter Visit Diagnoses Not on filedocumented in this encounter Care Teams Refueling Rampman Relationship Specialty Start Date End Date Bernardo Nichols MD [address] [place] [address] PCP - General 06/10/17 documented as of this encounter
--- OUTSIDE RECORDS SUMMARY | 2023-11-13 12:58 | XMS_ITS | Encounter Summary ---
Author Organization [facility] Address [address] [place] [address] Care Team Providers Care Expanded Function Dental Assistant Name Role Phone Bernardo Nichols MD Primary Care Provider [phone] Reason for Visit * Reason Onset Date Comments Appointment Related 07/25/2021 Encounter Details Date Type Department Care Team (Late st Contact Info) Description 07/25/2021 Telephone [facility] Neurophysiology - [facility] [address] [place], [place] 8[address] Aida Zaragoza MD [address] [place] [address] 2 [place] [phone] Appointment Related Social History Tobacco [...] encounter Miscellaneous Notes * Telephone Encounter - Paul Mims - 07/25/2021 1242 EDT Patient called. Scheduled visit with Aida Lackey MD on 11/08/2021 at 3:30. Last visit in this clinic: 05/05/2021 Next appointment scheduled in this clinic: 08/22/2021 documented in this encounter Plan of Treatment Upcoming Encounters Date Type Department Care Team (Late st Contact Info) Description 12/05/2023 13:30 EDT Telemedicine [facility] Neurology [address] 114961 Aida Zaragoza MD [address] [place] [address] [phone] 01/15/2024 9:30 EDT Procedure visit [address] 779541 Aida Zaragoza MD [address] [place] [address] [phone] 01/27/2024 8:15 EDT Telemedicine [address] 562381 Nickie Zaragoza NP [address] [place] [address] [phone] 04/22/2024 8:30 EST Procedure visit [address] 411801 Aida Zaragoza MD [address] [place] [address] [phone] 07/23/2024 8:30 EDT Procedure visit [facility] Neurology - S [place] [address] [place], [place] [address] Aida Zaragoza MD [address] [place] [address], Level [address] [place] [phone] documented as of this encounter Visit Diagnoses Not on filedocumented in this encounter Care Teams Expanded Function Dental Assistant Relationship Specialty Start Date End Date Bernardo Nichols MD [address] [place] [address] PCP - General 06/10/17 documented as of this encounter
--- OUTSIDE RECORDS SUMMARY | 2023-11-13 12:58 | XMS_ITS | Encounter Summary ---
Author Organization [facility] Address [address] [place] [address] Care Team Providers Care Workforce Planning Analyst Name Role Phone Bernardo Nichols MD Primary Care Provider [phone] Reason for Visit * Reason Onset Date Comments Appointment Related 02/24/2021 Encounter Details Date Type Department Care Team (Late st Contact Info) Description 02/24/2021 Telephone [facility] Adult Neurology - [facility] [address] [place], [place] 12[address] Tania Haq MD [address] [place], [place] [address] Appointment Related Social History Tobacco Use Types [...] encounter Miscellaneous Notes * Telephone Encounter - Hawk Ani - 02/24/2021 1159 EST Pt calling in stating that his neurologist at [facility] would like him to have an ambulatory EEG. Advised that they would need to submit referral to [facility]. Gave fax number. documented in this encounter Plan of Treatment Upcoming Encounters Date Type Department Care Team (Late st Contact Info) Description 12/05/2023 13:30 EDT Telemedicine [facility] Neurology S [address] 043371 Aida Zaragoza MD [address] [place] [address] [phone] 01/15/2024 9:30 EDT Procedure visit [address] 922331 Aida Zaragoza MD [address] [place] [address] [phone] 01/27/2024 8:15 EDT Telemedicine [address] 225521 Nickie Zaragoza NP [address] [place] [address] [phone] 04/22/2024 8:30 EST Procedure visit [address] 238471 Aida Zaragoza MD [address] [place] [address] [phone] 07/23/2024 8:30 EDT Procedure visit [facility] Neurology [address] 641751 Aida Zaragoza MD 1 [facility], Level [address] [place] [phone] documented as of this encounter Visit Diagnoses Not on filedocumented in this encounter Care Teams Workforce Planning Analyst Relationship Specialty Start Date End Date Bernardo Nichols MD [address] [place] [place], [place] [id number] PCP - General 06/10/17 documented as of this encounter
--- OUTSIDE RECORDS SUMMARY | 2023-11-13 12:58 | XMS_ITS | Encounter Summary ---
Author Organization [facility] Address [address] [place] [address] Care Team Providers Care Debt Recovery Officer Name Role Phone Benrardo Nichols MD Primary Care Provider [phone] Reason for Visit * Office Procedure (Routine/Next Available) - Receiving Office to Obtain Authorization Specialty Diagnoses / Procedures Referred By Nikhil arita Referred To Contact Neurology Diagnoses Paresthesia Procedures EMG/NERVE CONDUCTION STUDY Genoveva Piña DO [address] [phone] [facility] Neuromusc & Clin Neurophys [address] [place] [phone] Referral ID Status Reason Start Date Expiration Date Visits Requested Visits Authorized [id number] Receiving Office to Obtain Authorization 1 1 1 Encounter Details Date Type Department Care Team (Latest Contact Info) Description 06/08/2021 14:38 EST - 06/08/2021 23:59 EST Hospital Encounter [facility] Neurophysiology - Main [place] [address] [place] [address] Davey Magana MD [address] [place] [phone] Paresthesia; Lumbar radiculopathy; Cervical radiculopathy; Neuropathy, ulnar at elbow, right Discharge Disposition: Home or Self Care Social [...] 10 Tablet 04/25/2021 09/05/2021 mecobal/levomefolat Ca/B6 phos ([id number] ORAL) Take 2,000 mg by mouth daily. [...] or Self Care documented in this encounter Progress Notes * Davey Magana MD - 06/08/2021 1500 EST Images from the original note were not included. Department of Neurological Sciences Neuromuscular EMG Lab History: This is a 75-year-old gentleman seen in electrodiagnostic consultation to evaluate symptoms of intermittent numbness in his right upper and lower extremity. The patient is also under neurological evaluation for other symptoms which may be attributable to a movement disorder. The patient has longstanding intermittent episodes of numbness and pain that radiate down the right upper extremity. They can occur with laying down or when a seated position. He does not have any fixed areas of numbness orweakness in that upper extremity. He has similar events in the right lower extremity. He does have some chronic stiffness of both the neck and low back. Clinical Exam: This is a thin gentleman who is in no acute distress He is alert and oriented x3 with normal cognition. Some restricted facial expression during today'svisit Motor: Slow movements with the right upper and lower extremity with reduced finger tapping on the right. Normal bulk of upper and lower extremities. Full power with bilateral shoulder abduction, elbow flexion/extension, wrist flexion/extension, finger spread, hip flexion, knee extension, ankle dorsiflexion Sensory: Well-preserved sharp dull discrimination at distal toes and fingers without evidence of a gradient. Reflexes: 3+ bilateral biceps, brachioradialis, knee jerks, 2+ bilateral ankle jerks. Gait: Narrow based gait with reduced arm swing on the right For waveforms/values of EMG/nerve conduction study please see accompanying scanned document in the scans/media tab in EPIC. Electrodiagnostic Findings: Nerve Conduction: Despite multiple attempts to warm the patient with both heated blankets and warm water, we were unable to raise temperature in his upper extremities above 29 ??C and 27.8 ??C in the lower extremities. 1. Normal right peroneal and tibial motor responses with associated F-wave late responses 2. Normal right sural and radial sensory responses. 3. Right ulnar motor with slowed conduction velocity across the elbow (36 m/s stimulating above theelbow, 60 m/s stimulating below the elbow) with mild conduction block across the elbow. This nerve also had a mildly prolonged distal motor latency which is likely attributable to cool limb temperature (4 ms) 4. Low amplitude right ulnar sensory nerve action potential (5 ??V) Needle EM. Right extensor indicis proprius, first dorsal interosseous, flexor carpi radialis, biceps with evidence of chronic reinnervation (broad duration motor units with reduced recruitment) but without evidence of active denervation (no abnormal spontaneous activity) 2. Normal right deltoid, brachioradialis, and triceps 3. Right medial gastrocnemius with mild increased spontaneous activity (1+ fibrillations and positive waves) with associated evidence of chronic reinnervation (broad duration motor units with reducedrecruitment 4. Right tibialis anterior, vastus lateralis, vastus medialis, and short head biceps femoris with evidence of chronic reinnervation (broad duration motor units with reduced recruitment) but without evidence of active denervation 5. Right tensor fascia saad is normal Electrodiagnostic Impression: This is an abnormal study. There is electrodiagnostic evidence of: 1. 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 Remainder the needle exam in the right upper extremity was normal. 2. Chronic right Polylumbosacral Radiculopathies involving the L4 and S1 nerve roots This is manifest by evidence of chronic reinnervation in the right tibialis anterior, short head biceps femoris and mild active denervation with associated chronic reinnervation in the S1 innervated medial gastrocnemius as well as evidence of chronic reinnervation in the L4 innervated vastus lateralis and vastus medialis. 3. 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 These findings are consistent with an ulnar neuropathy at the elbow. There is no electrodiagnostic evidence of a sensorimotor polyneuropathy. Thank you for allowing me to participate in the care of your patient. Please don't hesitate to callwith any questions. Davey Magana MD 06/08/2021 17:11 Chucking Machine Operator of Neurology Neurology Attending Physician ABPN Board Certified, Neurology and Neuromuscular Medicine ABEM Board Certified, EMG documented in this encounter Plan of Treatment Upcoming Encounters Date Type Department Care Team (Late st Contact Info) Description 12/05/2023 13:30 EDT Telemedicine [facility] Neurology [address] [id number] Aida Zaragoza MD [address] [place] [address] [phone] 01/15/2024 9:30 EDT Procedure visit [address] [id number] Aida Zaragoza MD [address] [place] [address] [phone] 01/27/2024 8:15 EDT Telemedicine [address] 516651 Nickie Zaragoza NP [address] [place] [address] [phone] 04/22/2024 8:30 EST Procedure visit [address] [id number] Aida Zaragoza MD [address] [place] [address] [phone] 07/23/2024 8:30 EDT Procedure visit [facility] Neurology - S [place] [address] [place] [address] Aida Zaragoza MD 1 [facility] 2 [place] [phone] documented as of this encounter Procedures Procedure Name Priority Date/Time Associated Diagnosis Comments ELECTROMYOGRAM - SCANNED 06/10/2021 9:05 EST documented in this encounter Results * ELECTROMYOGRAM - SCANNED (06/10/2021 9:05 EST) 06/10/2021 9:05 EST Scan 2 Auto Claim Representative PROCEDURE/MINOR ANCELMO GICAL ORDERABLES documented in this encounter Visit Diagnoses Diagnosis Paresthesia Disturbance of skin sensation Lumbar radiculopathy Thoracic or lumbosacral neuritis or radiculitis, unspecified Cervical radiculopathy Brachial neuritis or radiculitis nos Neuropathy, ulnar at elbow, right documented in this encounter Care Teams Debt Recovery Officer Relationship Specialty Start Date End Date Bernardo Nichols MD [address] [place] [address] PCP - General 06/10/17 documented as of this encounter
--- OUTSIDE RECORDS SUMMARY | 2023-11-13 12:58 | XMS_ITS | Encounter Summary ---
Author Organization [facility] Address [address] [place] [address] Care Team Providers Care Well Treatment Offsider Name Role Phone Bernardo Nichols MD Primary Care Provider [phone] Reason for Visit * Reason Onset Date Comments Paperwork request 12/23/2020 Encounter Details Date Type Department Care Team (Late st Contact Info) Description 12/23/2020 Telephone [facility] Adult Neurology - [facility] [address] [place] [address] Tania Haq MD [address] [place], [place] [address] Paperwork request Social History Tobacco Use Types [...] encounter Miscellaneous Notes * Telephone Encounter - Alicia Castanon - 01/17/2021 1354 EDT Patient called and said Dr Hillman did not get his records. The correct fax number is [phone]. Offered to resend. He did not want a single note faxed, he wanted all his records sent so I transferredhim to Medical Records * Telephone Encounter - Miranda Jensen - 12/23/2020 1312 EDT Jim called to request that notes from 08/08/[address] Haq be faxed to Dr. Hillman. Faxed to [phone]. documented in this encounter Plan of Treatment Upcoming Encounters Date Type Department Care Team (Late st Contact Info) Description 12/05/2023 13:30 EDT Telemedicine [facility] Neurology [address] [id number] Aida Zaragoza MD [address] [place] [address] [phone] 01/15/2024 9:30 EDT Procedure visit [facility] S [address] 609191 Aida Zaragoza MD [address] [place] [address] [phone] 01/27/2024 8:15 EDT Telemedicine [facility] Neurology [address] [id number] Nickie Zaragoza NP [address] [place] [address] [phone] 04/22/2024 8:30 EST Procedure visit [facility] Neurology - S [address] [id number] Aida Zaragoza MD [address] [place] [address] [phone] 07/23/2024 8:30 EDT Procedure visit [facility] Neurology S [address] [id number] Aida Zaragoza MD [address] [place] [phone] documented as of this encounter Visit Diagnoses Not on filedocumented in this encounter Care Teams Well Treatment Offsider Relationship Specialty Start Date End Date Bernardo Nichols MD [address] [place] [address] PCP - General 06/10/17 documented as of this encounter
--- OUTSIDE RECORDS SUMMARY | 2023-11-13 12:58 | XMS_ITS | Encounter Summary ---
Author Organization [facility] Address [address] [place] [address] Care Team Providers Care Pulmonary Function Technician Name Role Phone Bernardo Nichols MD Primary Care Provider [phone] Reason for Visit * Reason Onset Date Comments Medications Refill 08/18/2021 Encounter Details Date Type Department Care Team (Late st Contact Info) Description 08/18/2021 Refill [facility] Adult Neurology - [facility] [address] [place] [address] Tania Haq MD [address] [place], [place] [id number] Medications Refill Social History Tobacco Use Types [...] Dispensed Refills Start Date End Da te PHENobarbital (LUMINAL) 32.4 mg tablet Take 1.5 Tablets by mouth daily. Daily Max: 48.6 mg 45 Tablet 1 08/21/2021 11/08/2021 PHENobarbital (LUMINAL) 32.4 mg tablet Take 1.5 Tablets by mouth daily. Daily Max: 48.6 mg 45 Tablet 1 08/21/2021 08/21/2021 documented in this encounter Miscellaneous Notes * Telephone Encounter - Naila Anderson DO - 08/21/2021 1042 EDT I sent in a prescription for now to ensure he has adequate supply and does not withdraw before a planned taper. We can discuss a trial off of medication at his upcoming appointment. 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 His PCP took him off of phenobarb in 2018 briefly and then he got restarted on it. Bill wants to titrateoff phenopbarb. He has been seen by Dr. Burrows in the past given that patient was having right hemiparesthesia that were thought to be due to focal seizures, but symptoms had no correlate on EEG. Plac ed referral to epilepsy clinic. Script has been pended to provider. Patient states he is almost out of medication. Reviewed that patient had an appointment tomorrow with Dr. Anderson in epilepsy clinic and will re-evaluate medication/dosage plan going forward. Patient in agreement with POC. * Telephone Encounter - Mariana Simpson - 08/18/2021 1500 EDT Patient was calling in this afternoon looking to get a refill called in for his medication. The medication is for, Medication Refill Medication(s) Requested: PHENobarbital (LUMINAL) 32.4 mg tablet Pharmacy (reconcile pharmacy list): [facility] [address] [facility], [place] - [address] Is patient out of medication? Yes Picking up/mailing (location)/calling in/eprescribe? E-prescribe 30 day supply/90 day supply? 90 day documented in this encounter Plan of Treatment Upcoming Encounters Date Type Department Care Team (Late st Contact Info) Description 12/05/2023 13:30 EDT Telemedicine [facility] Neurology [address] [id number] Aida Zaragoza MD [address] [place] [address] [phone] 01/15/2024 9:30 EDT Procedure visit [address] [id number] Aida Zaragoza MD [address] [place] [address] [phone] 01/27/2024 8:15 EDT Telemedicine [address] [id number] Nickie Zaragoza NP [address] [place] [address] [phone] 04/22/2024 8:30 EST Procedure visit [address] [id number] Aida Zaragoza MD [address] [place] [address] [phone] 07/23/2024 8:30 EDT Procedure visit [facility] Neurology - [place] [address] [place], [place] [address] Aida Zaragoza MD [address] [place] [address], [address] [place] [phone] documented as of this encounter Visit Diagnoses Not on filedocumented in this encounter Discontinued Medications Medication Sig Discontinue Reason Start Date End Da te PHENobarbital (LUMINAL) 32.4 mg tablet Take 45 mg by mouth. Reorder 08/21/2021 PHENobarbital (LUMINAL) 32.4 mg tablet Take 1.5 Tablets by mouth daily. Daily Max: 48.6 mg 08/21/2021 08/21/2021 documented as of this encounter Care Teams Pulmonary Function Technician Relationship Specialty Start Date End Date Bernardo Nichols MD [address] [place] [address] PCP - General 06/10/17 documented as of this encounter
--- OUTSIDE RECORDS SUMMARY | 2023-11-13 12:58 | XMS_ITS | Encounter Summary ---
Author Organization [facility] Address [address] [place] [address] Care Team Providers Care Hand Heel Seat Fitter Name Role Phone Bernardo Nichols MD Primary Care Provider [phone] Reason for Visit * Reason Onset Date Comments Appointment Related 02/28/2021 Encounter Details Date Type Department Care Team (Late st Contact Info) Description 02/28/2021 Telephone [facility] Neurophysiology - [address] [id number] Appointment Related Social History Tobacco Use Types Packs/Day Years Used Date Smoking Tobacco: Former Cigarettes 2 10 1 960 - 1969 Smokeless Tobacco: Never Alcohol Use [...] encounter Miscellaneous Notes * Telephone Encounter - Ani Arechiga - 02/28/2021 1421 EST Pt called back and scheduled EEG for 03/29/21 at 10am. Assigned referral. * Telephone Encounter - Sharon Polanco - 02/28/2021 1407 EST M for the pt to schedule 24 hr EEG appt. Please assign referral. documented in this encounter Plan of Treatment Upcoming Encounters Date Type Department Care Team (Late st Contact Info) Description 12/05/2023 13:30 EDT Telemedicine [facility] Neurology S [address] 189141 Aida Zaragoza MD [address] [place] [address] [phone] 01/15/2024 9:30 EDT Procedure visit [facility] Neurology [address] [id number] Aida Zaragoza MD [address] [place] [address] [phone] 01/27/2024 8:15 EDT Telemedicine [address] [address] Nickie Zaragoza NP [address] [place] [address] [phone] 04/22/2024 8:30 EST Procedure visit [address] 464011 Aida Zaragoza MD [address] [place] [address] [phone] 07/23/2024 8:30 EDT Procedure visit [facility] Neurology - S [address] [address] Aida Zaragoza MD 1 [facility], [address] [place] [phone] documented as of this encounter Visit Diagnoses Not on filedocumented in this encounter Care Teams Hand Heel Seat Fitter Relationship Specialty Start Date End Date Bernardo Nichols MD [address] [place] [address] PCP - General 06/10/17 documented as of this encounter
--- OUTSIDE RECORDS SUMMARY | 2023-11-13 12:58 | XMS_ITS | Encounter Summary ---
Author Organization [facility] Address [address] [place] [address] Care Team Providers Care Professor Of Historical Theology Name Role Phone Bernardo Nichols MD Primary Care Provider [phone] Reason for Visit * Reason Onset Date Comments Other 07/12/2021 Encounter Details Date Type Department Care Team (Late st Contact Info) Description 07/12/2021 Telephone [facility] Adult Neurology - [facility] [address] [place], [place] [address] Tania Haq MD [address] [place], [place] [address] Other Social History Tobacco Use Types Packs/Day [...] Dispensed Refills Start Date End Da te LORazepam (ATIVAN) 1 mg tablet Take 1 Tablet by mouth 1 (one) time for 1 dose. Daily Max: 1 mg 1 Tablet 07/17/2021 07/17/2021 documented in this encounter Miscellaneous Notes * Addendum Note - Tania Haq MD - 07/17/2021 1209 EDTAddended by: TANIA HAQ on: 07/17/2021 12:09 Modules accepted: Orders * Telephone Encounter - Domitila Bustamante MA - 07/17/2021 1200 EDT TC to patient to relay the below message from Dr. Haq, patient understood and is still hoping for anti-anxiety medication since the scanner will be close to his face. He understands he will needa ride home and will plan to bring someone with him. I let him know I would reach out to you and ask for those to be sent to the [facility] so he can pick them up at the same time as the lugol solution * Telephone Encounter - Sharon Polanco - 07/17/2021 0852 EDT Jim asks for clarification regarding who will be ordering the injections needed prior to the MARCELO scan. Please reach out to instruct and advise. * Telephone Encounter - Karen Swartz RN - 07/12/2021 1314 EDT Routing request for anxiety medication prior to DATscan for patient to Dr. Eisenberg for review * Telephone Encounter - Mariana Simpson - 07/12/2021 1157 EDT Patient was calling this afternoon to get a message to Dr. Haq. It is regarding the procedure,DATSCAN that is being done on Sunday, July 18, 2021. He was reading the paperwork that came to himand he mentioned that he gets claustrophobiic when he has MRI's done and he was thinking that he may need something to help him to relax with this procedure. Please call to advise. Thank you documented in this encounter Plan of Treatment Upcoming Encounters Date Type Department Care Team (Late st Contact Info) Description 12/05/2023 13:30 EDT Telemedicine [facility] Neurology [address] [id number] Aida Zaragoza MD [address] [place] [address] [phone] 01/15/2024 9:30 EDT Procedure visit [address] 898661 Aida Zaragoza MD [address] [place] [address] [phone] 01/27/2024 8:15 EDT Telemedicine [address] 559261 Nickie Zaragoza NP [address] [place] [address] [phone] 04/22/2024 8:30 EST Procedure visit [address] [id number] Aida Zaragoza MD [address] [place] [address] [phone] 07/23/2024 8:30 EDT Procedure visit [facility] [address] [place], [place] [address] Aida Zaragoza MD 1 [facility], [address] [place] [phone] documented as of this encounter Visit Diagnoses Not on filedocumented in this encounter Care Teams Professor Of Historical Theology Relationship Specialty Start Date End Date Bernardo Nichols MD [address] [place] [address] PCP - General 06/10/17 documented as of this encounter
--- OUTSIDE RECORDS SUMMARY | 2023-11-13 12:58 | XMS_ITS | Encounter Summary ---
Author Organization [facility] Address [address] [place] [address] Care Team Providers Care Line Installer Repairer Name Role Phone Bernardo Nichols MD Primary Care Provider [phone] Reason for Visit * Consult (See Order Priority) - Order Cancelled Specialty Diagnoses / Procedures Referred By Nikhil arita Referred To Contact Neurology Diagnoses Seizure (FORMERLY [facility]) Genoveva Piña DO 1 [facility] [address] [place] [address] [facility] [address] [place] [address] Referral ID Status Reason Start Date Expiration Date Visits Requested Visits Authorized [id number] Order Cancelled Specialty Services Required 1 1 1 Encounter Details Date Type Department Care Team (Latest Contact Info) Description 08/24/2021 7:50 EDT - 08/24/2021 23:59 EDT Hospital Encounter [facility] Center Neurophysiology - Main [place] [address] [place], [place] [address] Naila Anderson, [address] [place] [phone] History of seizures (Primary Dx); Paresthesia of arm; Restless legs syndrome (RLS) Discharge Disposition: Home or Self Care Social [...] on file documented as of this encounter Discharge Instructions * Patient Instructions* Naila Anderson DO - 08/24/2021 8:00 EDT Decrease phenobarbital to 1 tab (32.4 mg) daily for 1 month, then decrease to 1/2 tab (16.2) mg daily for 1 month, then stop. documented in this encounter Medications at Time [...] times daily. 180 Tablet 3 06/06/2021 01/05/2022 fludrocortisone (FLORINEF) 0.1 mg tablet Take 1 Tablet by mouth daily. 04/19/2023 gabapentin (NEURONTIN) 100 mg capsule Take 1 Cap by mouth 3 times daily. 90 Cap 3 06/21/2020 11/08/2021 ketOROLAC (TORADOL) 10 mg tablet Take 1 Tablet by mouth daily as needed for Pain (do not take more than 2 tabs/week for headache pain>5/10). 10 Tablet 04/25/2021 09/05/2021 mirabegron (MYRBETRIQ) 25 mg extended release tablet Take by mouth daily. 024 PHENobarbital (LUMINAL) 32.4 mg tablet Take 1.5 Tablets by mouth daily. Daily Max: 48.6 mg 45 Tablet 1 08/21/2021 11/08/2021 rOPINIRole (REQUIP) 0.5 mg tablet Take 1 mg by mouth daily. 11/08/2021 documented as of this encounter Discharge Disposition Disposition Code Departure Means Destination Home or Self Care documented in this encounter Progress Notes * Naila Anderson DO - 08/24/2021 0800 EDT [facility] FOLLOW UP VISIT TELENEUROLOGY VISIT ?? PATIENT NAME: Jim Gonzalez DATE OF SERVICE: 08/24/21 ?? The concept of ???Telemedicine?? has been described [...] copays, deductible or coinsurance for this service. TELEMEDICINE VIDEO VISIT Today's visit was provided through telemedicine video conferencing: I have reviewed the appropriateness of using video technology with the patient with regards to today's visit. The location of the patient : Home Patient location state: Visit Location State: [place] The location of the provider: Office Provider location state: Visit Location State: [place] The following people and their roles were present for today's visit: Appointment Provider: Naila Anderson I, DO Lele Alvarado MD ?? CHIEF COMPLAINT: seizures ?? Interval History: Last seen by Dr. Oleary in January 2020. Today he reports he has been stable overall. Has not had any episodes concerning for generalized seizures. Last seizure was in the 1970s. Reports 6 lifetime events concerning for seizure, all occurred in 20s-30s (maybe 1 every 1-2 years, no clear triggers although he was drinking heavily at the time). All events were nocturnal - described waking to him thrashing, sometimes falling out of the bed, typically with incontinence and tongue bite. Underwent work up including MR head and EEG but he does not remember the results. Started on phenobarbital, did well for a period of time then weanedhimself off in the and was off meds for several years with no seizures. A new PCP restarted him on phenobarbital out of precaution but he did not have any seizures off of medication. Over the next several decades there were attempted transitions to several other medications (phenytoin, levetiracetam, carbamazepine, gabapentin), all medications were discontinued because of side effects typically dizziness or fatigue. He was subsequently restarted on phenobarbital and aspirin taking that consistently. He does feel like in the past few years he has been more fatigued with more brain fog and wonders if this is a side effect, otherwise tolerates it well. In the last 4 to 5 years, he has also been experiencing episodes of right-sided numbness and tingling. He describes a sensation of numbness and tingling that starts in the right shoulder and progresses down the arm but never into the hand or fingertips. Sometimes he will also have a small patch of numbness and tingling in the right hip as well. The symptoms may last for several minutes and then resolve abruptly and the arm and leg feel normal again. Sometimes the arm feels a little tight and clumsy during the episode but no leny weakness during or afterwards. He has never been confused or had any aphasia during any of the episodes. These are typically happening daily, sometimes twice per day. Never involves the face or thorax. Underwent 24 hour ambulatory EEG monitoring in 2018 to evaluate these suspicious spells. He had 3 target events (right sided tingling and tightening) during the EEG which showed no evidence of ictal correlate. 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 Risk Factors for Epilepsy: Complication of or early development: none known Significant head trauma: has had 2-3 concussion all occurring before seizures began, no LOC with any Febrile convulsion: denies LOADING INSPECTOR infection: denies Family history of epilepsy: denies Brain tumor: denies Gastric uprising or falling feeling: denies Randa vu: denies Morning myoclonus: denies ?? Mention of an MRI from 2017 indicates the presence of non specific T2/FLAIR hyperintensity. MRI report from 05/2018 shows no acute intracranial abnormality. Carotid US from 05/07/2017 with mild plaque without evidence of significant stenosis. MRI cervical spine from 04/18/2017 with multilevel NF shantel rowing but no significant central stenosis. ?? ROS: A complete 12-point ROS performed with pertinent positives and negatives documented in HPI. ?? Past medical history Hyperlipidemia, depression, sleep apnea, GERD ?? Past surgical history R hip replacement 2009 ?? Family history Father stroke 60s. Mother stroke 90s. 2 brothers from cancer. Sister healthy. No history of inherited neurologic disorders. ?? Social history Lives in [place], [place]. 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 When he was young he drank heavily, then until early 70s he drank moderately, currently doesn't consume any alcohol. Non smoker. Current Outpatient Medications on File Prior to Encounter Medication Sig Dispense Refill ??? acetaminophen (TYLENOL) 500 mg tablet Take 500 mg by mouth every 6 hours as needed for Pain. ??? carbidopa-levodopa (SINEMET) 25-100 mg per tablet Take 2 Tablets by mouth 3 times daily. 180 Tablet 3 ??? cholecalciferol, Vitamin D3, 1,000 unit tablet Take 2,000 Units by mouth daily. ??? cyanocobalamin (VITAMIN B-12) 500 mcg tablet Take 1,000 mcg by mouth daily. ??? fludrocortisone (FLORINEF) 0.1 mg tablet Take 0.1 mg by mouth daily. ??? gabapentin (NEURONTIN) 100 mg capsule Take 1 Cap by mouth 3 times daily. 90 Cap 3 ??? ketOROLAC (TORADOL) 10 mg tablet Take 1 Tablet by mouth daily as needed for Pain (do not take more than 2 tabs/week for headache pain>5/10). 10 Tablet 0 ??? MAGNESIUM ORAL Take 1,000 mg by mouth. 2 500 MG TABS ??? mirabegron (MYRBETRIQ) 25 mg extended release tablet Take by mouth daily. ??? OMEGA-3 330 MG-DHA AND EPA 300 MG-ALGAL OIL 600 MG CAPSULE 3,200 mg daily. ??? PHENobarbital (LUMINAL) 32.4 mg tablet Take 1.5 Tablets by mouth daily. Daily Max: 48.6 mg 45 Tablet 1 ??? rOPINIRole (REQUIP) 0.5 mg tablet Take 1 mg by mouth daily. ??? UNABLE TO FIND Med Name: 'Restless legs' PRN for restless legs No current facility-administered medications on file prior to encounter. TELE Examination Wide awake and alert. Normal comprehension. No aphasia. Full extra ocular movements without palsy. Face symmetric on rest and activation. No dysarthria. No obvious focal/functional weakness. Able to rise from chair w/o use of arms and lift arms above head. ?? Assessment/Plan Jim Gonzalez is a 75 y.o. 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 He reports in his 20s-30s he had ~6 seizures, all nocturnal. He underwent work up with MR and EEG but does not remember the results and they are not available in our system (understandably). He has been on phenobarbital since the 1960s and has not had a seizure since 1970. We discussed weaning him off of medication due to likely limited benefit at this point with risk of significant senior living effe cts. He is in agreement with this plan. In regards to the stereotyped episodes, he describes a sensation of numbness and tingling that starts int he shoulder and spreads but not past the forearm (never involves the hand or fingertips) withoccasional simultaneous symptoms in the right hip although this is rare. Never involves the thorax or face. No associated aphasia, leny weakness, or confusion/impaired awareness. He underwent ambulatory EEG monitoring in 2018 where he reportedly had 3 similar events without ictal correlate, although that certainly does not completely exclude a small focal seizure particularly in the setting of maintained awareness. Further, the frequency of the events and the lack of relationship or change with several anti epileptic additions and escalations argue against an epileptic etiology. He does haveknown cervical NF stenosis with multilevel chronic radiculopathy on recent NCS/EMG so these episodes could certainly be peripheral in nature. At this point, suspicion for recurrent focal seizures is l ow and we discussed a watch a wait approach. If episodes increasing or change significantly after weaning off of phenobarbital we can consider repeat ambulatory EEG and/or starting another AED. - Wean off of phenobarbital - Decrease to 1 tab (32.4 mg) daily x 1 month, then decrease to 1/2 tab (16.2 mg) daily x 1 month, then stop - He knows to call if he has another large seizure, or if the sensory episodes increase or evolve at all - Follow up in [address] Alvarado. Naila Anderson DO Clinical Neurophysiology Fellow Associated attestation - Lele Alvarado MD - 08/25/2021 1017 EDT Attending Addendum: I personally interviewed and examined this patient on 08/24/2021. I have reviewed the case in detail with Jim and Dr. Anderson. I confirm examination findings and concur with theimpression and plan herein. 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 He has been on chronic phenobarbital, uncertain of dose, though dose reduced from 60 to 45ish mg/d when he saw a neurologist at [facility]. Years of seizure freedom off of this med. In the past 4 years or so he has developed daily episodes of right upper arm dysesthesia and possible dystonia, often spreading down his arm though never below the wrist, and sometimes with dysesthesia in the right lateral hip area lasting 1-2 minutes. These do not sound like seizures, have not responded to several anti-seizure med trials and these events are likely independent of his remote history of epilepsy. A question of Parkinson disease has arisen. His prior investigations are reviewed. I urge Jim to continue to taper PB by ~15 mg every month until gone. He expresses understanding. A bone densitometry study should be considered if not done already due to chronic PB exposure. VITD supplementation should be considered. He asks about RLS evaluation and treatment and [facility] and recommend he continue to follow w Dr. Puente, though remain available to him if concerns. RTC here prn and I give him my number. - KJN documented in this encounter Miscellaneous Notes * Addendum Note - Lele Alvarado MD - 08/24/2021 0800 EDTEncounter addended by: Lele Alvarado MD on: 08/25/2021 10:17 Actions taken: Cosign clinical note with attestation, Visit diagnoses modified documented in this encounter Plan of Treatment Upcoming Encounters Date Type Department Care Team (Late st Contact Info) Description 12/05/2023 13:30 EDT Telemedicine [facility] Neurology S [address] [address] Aida Zaragoza MD [address] [place] [phone] 01/15/2024 9:30 EDT Procedure visit [address] [phone] Aida Zaragoza MD [address] [place] [address] [phone] 01/27/2024 8:15 EDT Telemedicine [address] 976391 Nickie Zaragoza NP [address] [place] [address] [phone] 04/22/2024 8:30 EST Procedure visit [address] 790251 Aida Zaragoza MD [address] [place] [address] [phone] 07/23/2024 8:30 EDT Procedure visit [facility] Neurology - S [place] [address] [place], [place] [address] Aida Zaragoza MD 1 [facility], Level [address] [place] [phone] documented as of this encounter Visit Diagnoses Diagnosis History of seizures- Primary Personal history of other disorders of nervous system and sense organs Paresthesia of arm Disturbance of skin sensation Restless legs syndrome (RLS) documented in this encounter Discontinued Medications Medication Sig Discontinue Reason Start Date End Da te pyridoxine, vitamin B6, (VITAMIN B6) 50 mg tablet Take 50 mg by mouth daily. 08/24/2021 documented as of this encounter Historical Medications * This list may reflect changes made after this encounter. Medication Sig Dispensed Refills Start Date End Date cyanocobalamin (VITAMIN B-12) 500 mcg tablet Take 1 Tablet by mouth daily. added in this encounter Care Teams Line Installer Repairer Relationship Specialty Start Date End Date Bernardo Nichols MD [address] [place] [address] PCP - General 06/10/17 documented as of this encounter
--- OUTSIDE RECORDS SUMMARY | 2023-11-13 12:58 | XMS_ITS | Encounter Summary ---
Author Organization [facility] Address [address] [place] [address] Care Team Providers Care First Sampler Name Role Phone Bernardo Nichols MD Primary Care Provider [phone] Reason for Visit * Reason Onset Date Comments Referral Request 11/20/2021 Encounter Details Date Type Department Care Team (Late st Contact Info) Description 11/20/2021 Telephone [facility] Neurology - S [address] [id number] Aida Zaragoza MD [address] [place] [address] [address] [place] [phone] Referral Request Social History Tobacco Use Types Packs/Day Years [...] Telephone Encounter - Aleah Salvador RN - 11/22/[address] Lackey: Order placed to [facility] Spine Left message for pt relaying that order has been placed, and he should hear from spine clinic once PA process is complete. Time taken for processing this encounter: Research 1 minutes Phone call 2 minutes Note/mychart/refill 1 minutes This encounter has taken a total of 4 minutes plus 6 minutes from yesterday, total of 10 minutes * Telephone Encounter - Aleah Salvador RN - 11/21/2021 1503 EDT Review of most recent chart shows plan to refer to spine clinic. Note is not currently signed, and referral not found as yet. Will forward to Dr. Lackey for review and referral as appropriate. Time taken for processing this encounter: Research 4 minutes Phone call 0 minutes Note/mychart/refill 2 minutes This encounter has taken a total of 6 minutes * Telephone Encounter - Mariana Simpson - 11/20/2021 1529 EDT Bill was calling in this afternoon in regards to Dr. Lackey stating at his appointment with her on November 08, 2021 at 3:30 pm that she was going to put a referral in for him for one of our other specialists. He was looking to see if that has been done. Please call to advise. Thank you documented in this encounter Plan of Treatment Upcoming Encounters Date Type Department Care Team (Late st Contact Info) Description 12/05/2023 13:30 EDT Telemedicine [facility] Neurology - S [address] [address] Aida Zaragoza MD 1 [facility], Level [address] [place] [phone] 01/15/2024 9:30 EDT Procedure visit [facility] Neurology S [address] 018081 Aida Zaragoza MD [address] [place] [address] [phone] 01/27/2024 8:15 EDT Telemedicine [address] [address] Nickie Zaragoza NP [address] [place] [address] [phone] 04/22/2024 8:30 EST Procedure visit [address] 202091 Aida Zaragoza MD [address] [place] [address] [phone] 07/23/2024 8:30 EDT Procedure visit [address] 733391 Aida Zaragoza MD [address] [place] [address] [phone] documented as of this encounter Visit Diagnoses Not on filedocumented in this encounter Care Teams First Sampler Relationship Specialty Start Date End Date Bernardo Nichols MD [address] [place], [place] [phone] PCP - General 06/10/17 documented as of this encounter
--- OUTSIDE RECORDS SUMMARY | 2023-11-13 12:58 | XMS_ITS | Encounter Summary ---
Author Organization [facility] Address [address] [place] [address] Care Team Providers Care Barrel Bander Name Role Phone Bernardo Nichols MD Primary Care Provider [phone] Reason for Visit * Reason Onset Date Comments Appointment Related 05/05/2021 Encounter Details Date Type Department Care Team (Late st Contact Info) Description 05/05/2021 Telephone [facility] Neurophysiology - [facility] [address] [place], [place] [address] Davey Magana MD [address] [place] [address] [address] [place] [phone] Appointment Related Social History Tobacco [...] encounter Miscellaneous Notes * Telephone Encounter - Bhanu Jaimes - 05/05/2021 1108 EST Incoming call to schedule EMG from referral cue, scheduled at next available 06/08/21 at 3pm I have given pt's directions and assigned referral. documented in this encounter Plan of Treatment Upcoming Encounters Date Type Department Care Team (Late st Contact Info) Description 12/05/2023 13:30 EDT Telemedicine [facility] Neurology S [address] 239061 Aida Zaragoza MD [address] [place] [address] [phone] 01/15/2024 9:30 EDT Procedure visit [address] 179411 Aida Zaragoza MD [address] [place] [address] [phone] 01/27/2024 8:15 EDT Telemedicine [address] 169651 Nickie Zaragoza NP [address] [place] [address] [phone] 04/22/2024 8:30 EST Procedure visit [address] 256351 Aida Zaragoza MD [address] [place] [address] [phone] 07/23/2024 8:30 EDT Procedure visit [facility] Neurology [address] [address]21 Aida Zaragoza MD 1 [facility], Level [address] [place] [phone] documented as of this encounter Visit Diagnoses Not on filedocumented in this encounter Care Teams Barrel Bander Relationship Specialty Start Date End Date Bernardo Nichols MD [address] [place], [place] [phone] PCP - General 06/10/17 documented as of this encounter
--- OUTSIDE RECORDS SUMMARY | 2023-11-13 12:59 | XMS_ITS | Encounter Summary ---
Author Organization [facility] Address [address] [place] [address] Care Team Providers Care Clinical Informaticist Name Role Phone Bernardo Nichols MD Primary Care Provider Encounter Details Date Type Department Care Team (Latest Contact Info) Description 06/12/2017 11:24 EST - 06/12/2017 23:59 EST Hospital Encounter [facility] Neurophysiology - Main [place] [address] [place], [place] [address] Unknown, Provider, Discharge Disposition: Home or Self Care Social History Tobacco Use Types Packs/Day Years Used Date Smoking Tobacco: Never Assessed Sex and Gender Information Value Date Recorded Sex Assigned at Not on file Gender Identity Male 02/04/2020 16:10 EDT Sexual Orientation Not on file documented as of this encounter Discharge Disposition Disposition Code Departure Means Destination Home or Self [facility] documented in this encounter Plan of Treatment Upcoming Encounters Date Type Department Care Team (Late st Contact Info) Description 12/05/2023 13:30 EDT Telemedicine [facility] Neurology - S [address] [id number] Aida Zaragoza MD [address] [place] [address], [address] [place] [phone] 01/15/2024 9:30 EDT Procedure visit [facility] Neurology - S [address] [id number] Aida Zaragoza MD [address] [place] [address] [phone] 01/27/2024 8:15 EDT Telemedicine [address] 210671 Nickie Zaragoza NP [address] [phone] 04/22/2024 8:30 EST Procedure visit [address] [phone] Aida Zaragoza MD [address] [place] [address] [phone] 07/23/2024 8:30 EDT Procedure visit [address] [id number] Aida Zaragoza MD [address] [place] [address] [phone] documented as of this encounter Procedures Procedure Name Priority Date/Time Associated Diagnosis Comments EEG - SCANNED 07/02/2017 11:17 EDT documented in this encounter Results * EEG - SCANNED (07/02/2017 11:17 EDT) 07/02/2017 11:1 7 EDT Scan 2 Dance Teacher PROCEDURE/MINOR ANCELMO GICAL ORDERABLES documented in this encounter Visit Diagnoses Not on filedocumented in this encounter Care Teams Clinical Informaticist Relationship Specialty Start Date End Date Bernardo Nichols MD [address] [place], [place] [phone] PCP - General 06/10/17 documented as of this encounter
--- OUTSIDE RECORDS SUMMARY | 2023-11-13 12:59 | XMS_ITS | Encounter Summary ---
Author Organization [facility] Address [address] [place] [address] Care Team Providers Care Leadership Development Manager Name Role Phone Bernardo Nichols MD Primary Care Provider [phone] Reason for Visit * Reason Onset Date Comments Appointment Related 05/05/2020 Encounter Details Date Type Department Care Team (Late st Contact Info) Description 05/05/2020 Telephone [facility] Adult Neurology - [facility] [address] [place], [place] [address] Tania Haq MD [address] [place], [place] [address] Appointment Related Social History Tobacco Use Types [...] * Telephone Encounter - Riley Smith - 05/05/2020 1030 EST Patient calling to confirm 05/10 3pm in person FUR appt with Dr. Haq. Also reminded pt of COVIDpolicies * Telephone Encounter - Domitila Bustamante MA - 05/05/2020 1012 EST TC to patient to schedule in person follow up per request from Dr. Haq Scheduled In Person FUR for 05/10 at 3:00 pm If patient cannot get a ride and needs to cancel please reschedule for 05/30 documented in this encounter Plan of Treatment Upcoming Encounters Date Type Department Care Team (Late st Contact Info) Description 12/05/2023 13:30 EDT Telemedicine [facility] Neurology S [address] [id number] Aida Zaragoza MD [address] [place] [address] [phone] 01/15/2024 9:30 EDT Procedure visit [facility] Neurology S [address] 917961 Aida Zaragoza MD [address] [place] [address] [phone] 01/27/2024 8:15 EDT Telemedicine [facility] Neurology S [address] 248701 Nickie Zaragoza NP [address] [place] [address] [phone] 04/22/2024 8:30 EST Procedure visit [facility] Neurology S [address] [address] Aida Zaragoza MD [address] [place] [address] 2 [place] [phone] 07/23/2024 8:30 EDT Procedure visit [facility] S [address] [address] Aida Zaragoza MD [address] [place] [phone] documented as of this encounter Visit Diagnoses Not on filedocumented in this encounter Care Teams Leadership Development Manager Relationship Specialty Start Date End Date Bernardo Nichols MD [address] [place] [address] PCP - General 06/10/17 documented as of this encounter
--- OUTSIDE RECORDS SUMMARY | 2023-11-13 12:59 | XMS_ITS | Encounter Summary ---
Author Organization [facility] Address [address] [place] [address] Care Team Providers Care Miller Head Name Role Phone Bernardo Nichols MD Primary Care Provider [phone] Reason for Visit * Reason Onset Date Comments Medications Refill 05/11/2020 Encounter Details Date Type Department Care Team (Late st Contact Info) Description 05/11/2020 Telephone [facility] Adult Neurology - [facility] [address] [place], [place] [address] Tania Haq MD [address] [place], [place] [address] Medications Refill Social History Tobacco Use Types Packs/Day Years Used Date Smoking Tobacco: Never Alcohol Use Standard Drinks/Week Comments Yes 0 (1 standard drink = 0.6 oz pur e alcohol) AUDIT-C Answer Date Recorded Q1: How often do you have a drink containing alc ohol? 2-4 times a month 04/18/2020 Q2: How many drinks containi ng alcohol do you have on a typical day when you are drinking? Not asked 04/18/2020 Q3: How often do you have si x or more drinks on one occasion? Not asked 04/18/2020 Interpersonal Safety Answer Date Record ed Physically [...] have Coronavirus / COVID-19? No / Unsure 05/10/2020 15:00 EST documented as of this encounter Ordered Prescriptions Prescription Sig Dispensed Refills Start Date End Da te carbidopa-levodopa (SINEMET) 25-100 mg per tablet Take 1 Tab by mouth 3 times daily for 30 days. 90 Tab 3 05/11/2020 06/10/2020 documented in this encounter Miscellaneous Notes * Telephone Encounter - Jet Snider RN - 05/11/2020 1618 EST New prescription sent electronically to [facility] in [place]. Spoke with pharmacy grad intern to verify it was received- yes. * Telephone Encounter - Peter Rueda - 05/11/2020 1611 EST Patient called in, is currently at pharmacy, script for CD-LD does not show receipt by [facility] in [place]. Spoke with Dionne who is working to send this script herb. Medication Refill Medication(s) Requested: CD-LD Pharmacy (reconcile pharmacy list): [facility] [address] [place] [address] Is patient out of medication? YES Peter Rueda 116:11 documented in this encounter Plan of Treatment Upcoming Encounters Date Type Department Care Team (Late st Contact Info) Description 12/05/2023 13:30 EDT Telemedicine [facility] Neurology S [address] 153111 Aida Zaragoza MD [address] [place] [address] [phone] 01/15/2024 9:30 EDT Procedure visit [facility] Neurology S [address] 654201 Aida Zaragoza MD [address] [place] [address] [phone] 01/27/2024 8:15 EDT Telemedicine [address] 263531 Nickie Zaragoza NP [address] [place] [address] [phone] 04/22/2024 8:30 EST Procedure visit [address] [id number] Aida Zaragoza MD [address] [place] [address] [phone] 07/23/2024 8:30 EDT Procedure visit [address] 215191 Aida Zaragoza MD [address] [place] [address] [phone] documented as of this encounter Visit Diagnoses Not on filedocumented in this encounter Discontinued Medications Medication Sig Discontinue Reason Start Date End Da te carbidopa-levodopa (SINEMET) 25-100 mg per tablet Take 1 Tab by mouth 3 times daily for 30 days. Reorder 05/10/2020 05/11/2020 documented as of this encounter Care Teams Miller Head Relationship Specialty Start Date End Date Bernardo Nichols MD [address] [place] [address] PCP - General 06/10/17 documented as of this encounter
--- OUTSIDE RECORDS SUMMARY | 2023-11-13 12:59 | XMS_ITS | Encounter Summary ---
Author Organization [facility] Address [address] [place] [address] Care Team Providers Care Director Of Marketing Operations Name Role Phone Bernardo Nichols MD Primary Care Provider [phone] Reason for Visit * Reason Onset Date Comments Appointment Related 04/18/2020 Encounter Details Date Type Department Care Team (Late st Contact Info) Description 04/18/2020 Telephone [facility] Adult Neurology - [facility] [address] [place], [place] [address] Tania Haq MD [address] [place], [place] [address] Appointment Related Social History Tobacco Use Types [...] Telephone Encounter - Domitila Bustamante MA - 04/18/2020 0912 EST Rescheduled 1:[address] Haq to [employer], sent meeting info to email provided Meeting ID: [id number] Password: [email or web address] * Telephone Encounter - Alicia Castanon - 04/18/2020 0859 EST Patient is OK with Zoom for today's visit email to: [email or web address] * Telephone Encounter - Domitila Bustamante MA - 04/18/2020 0838 EST LVM with patient informing him that we would need to cancel his in person appointment for today, 04/18 at 1:[address] Haq needs to qurantine so cannot be in clinic today Offered to keep this visit as a Zoom visit, if patient would like to keep as Zoom he will call backto let us know, please reschedule for video at the same time slot *Cannot reschedule for phone bc it is NPV, needs to be video or in person* If patient wants to wait for in person I will call sometime this week to reschedule documented in this encounter Plan of Treatment Upcoming Encounters Date Type Department Care Team (Late st Contact Info) Description 12/05/2023 13:30 EDT Telemedicine [facility] Neurology - S [address] [address] Aida Zaragoza MD [address] [place] [address], [address] [place] [phone] 01/15/2024 9:30 EDT Procedure visit [facility] Neurology [address] [id number] Aida Zaragoza MD [address] [place] [address] [phone] 01/27/2024 8:15 EDT Telemedicine [address] 125831 Nickie Zaragoza NP [address] [place] [address] [phone] 04/22/2024 8:30 EST Procedure visit [address] 457441 Aida Zaragoza MD [address] [place] [address] [phone] 07/23/2024 8:30 EDT Procedure visit [address] 681661 Aida Zaragoza MD [address] [place] [address] [phone] documented as of this encounter Visit Diagnoses Not on filedocumented in this encounter Care Teams Director Of Marketing Operations Relationship Specialty Start Date End Date Bernardo Nichols MD [address] [place] [address] PCP - General 06/10/17 documented as of this encounter
--- OUTSIDE RECORDS SUMMARY | 2023-11-13 12:59 | XMS_ITS | Encounter Summary ---
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 Neurophysiology - [facility] [place] [address] [place] [address] Davey Oleary MD [address] [place] [phone] Tremor (Primary Dx); Witnessed seizure-like activity ([facility]) Discharge Disposition: Home or Self Care Social History Tobacco Use Types Packs/Day Years Used Date Smoking Tobacco: Never Assessed Interpersonal Safety Answer Date Record ed Physically Hurt Never 11/15/2019 Verbally Threaten Not on file 11/15/2019 Sex and Gender Information Value Date Recorded Sex Assigned at Not on file Gender Identity Male 02/04/2020 16:10 EDT Sexual Orientation Not on file documented as of this encounter Medications at Time of Discharge Medication Sig Dispensed Refills Start Date End Date UNABLE TO FIND Med Name: 'Restless legs' PRN for restless legs amoxicillin (AMOXIL) 500 mg capsule 500 mg. 01/30/2020 04/18/2020 FLUoxetine (PROZAC) 10 mg capsule 10 mg daily. 01/25/2020 04/18/2020 UNABLE TO FIND Med Name: cystiquell (per pt) 04/18/2020 documented as of this encounter Discharge Disposition Disposition Code Departure Means Destination Home or Self Care documented in this encounter Progress Notes * Alexis Burrows MD - 02/09/2020 1000 EDT [facility] - NEW PATIENT VISIT TELENEUROLOGY VISIT PATIENT NAME: Jim Gonzalez DATE OF SERVICE: 02/09/2020 ATTENDING PHYSICIAN: Markos The concept of ???Telemedicine?? has been described [...] The location of the patient : Home in [place] The location of the provider: Office in [place] The following staff and their role did participate in today's encounter visit: Davey Oleary MD CHIEF COMPLAINT: 1. Query focal epilepsy 2. Query Parkinson's disease History of Present Illness Jim Gonzalez is a 74 y.o. male referred to [facility] neurology by his primary care physician (Dr. Nichols) primarily for the question of Parkinson's disease. His chart also notes a history of remote focal epilepsy and ongoing spells which have been evaluated in the past. He was seen in the [facility] epilepsyclinic. First seizure in his 20s. Last seizure-like event was in 1970s. He states he was treated for epilepsy but never formally diagnosed. Typical events occurred at night. Characterized by tongue biting, occasional urinary incontinence, and falling out of bed. Initially on combination phenytoin and phenobarbital until late 20s then on phenobarb monotherapy for many decades. Had been on longstanding phenobarbital which was switched to levetiracetam and carbamazepine about 1 year ago due to fatigue. Ultimately all anti epileptics were discontinued in April 2018. No seizures in 40+ years. Still experiences paroxsymal stereotypic episodes of right adama dysesthesias involving arm and leg.Began several years ago. Occurs when going to rest - like sitting down to read or going to bed. Occur right before falling asleep or rarely in the morning. Characterized by tingling beginning in his arm which spreads down into his leg. No leny weakness, aphasia, visual abnormalities. States muscles are tightening and arm will move up occasionally. Lasts approximately 1 minute. Event typically proceeded by a mild headache. These have decreased in frequency and intensity over the past several months. No clear relationship to addition/subtitution of antiepiletpics. Some improvement in this episodes following initiation of gabapentin in August 2018 (but no change with LEV, PHB, CBZ). Underwent 24 hour ambulatory EEG monitoring in 2018 to evaluate these suspicious spells. He had 3 target events (right sided tingling and tightening) during the EEG which showed no evidence of ictal correlate. EEG notable for mild left frontotemporal slowing. Primary care provider has been concerned about Parkinson's disease. He notes a very fine tremor in bilateral arms more than legs tremor. He can notice them when standing in the mirror letting his arms hang by his sides. He thinks its more of a hypersensitization then a tremor. Developed a mild tremor several days. Developed several weeks ago. He believes the tremor is mild but is not currently driving because he is concerned about having worsening tremors. He denies any significant slowing withhis movements or signs suggestive of bradykinesia. He is an avid walker and has not noticed any slowing in his walking. No falls. Denies any significant muscle tightness or symptoms suggestive of rigidity. No gaze difficulties. No bulbar symptoms. Several month history of constipation, off and on. No loss of smell. No sense of RBD symptoms however he does not have a bed partner. No exposure to antipsychotics. He has KARLI but does not wear a CPAP mask. He is going for an appointment in 2 weeks presumably to be fitted for a mask. He notes infrequent restless leg syndrome. Mention of an MRI from 2017 indicates the presence of non specific T2/FLAIR hyperintensity. MRI report from 05/2018 shows no acute intracranial abnormality. Carotid U/s from 05/07/2017 with mild plaque without evidence of significant stenosis. MRI cervical spine from 04/18/2017 with multilevel NF na rrowing but no significant central stenosis. Unfortunately the images are not available for independent review. ROS: A complete 12-point ROS performed with pertinent positives and negatives documented in HPI. Past medical history Hyperlipidemia, depression, sleep apnea, GERD Past surgical history R hip replacement 2009 Family history Father stroke 60s. Mother stroke 90s. 2 brothers from cancer. Sister healthy. No history of inherited neurologic disorders. Social history Live in [place], [place]. 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 One drink a week. Non smoker. Current Outpatient Medications Medication Sig Dispense Refill ??? FLUoxetine (PROZAC) 10 mg capsule 10 mg daily. ??? UNABLE TO FIND Med Name: cystiquell (per pt) ??? UNABLE TO FIND Med Name: 'Restless legs' PRN for restless legs No current facility-administered medications for this encounter. TELE Examination Exam limited via video. Wide awake and alert. Normal comprehension. No aphasia. Full extra ocular movements without palsy. Face symmetric on rest and activation. No dysarthria. No obvious focal/functional weakness. Able to rise from chair w/o use of arms and lift arms above head. No bradykinesia with rapid finger tapping or fist opening. Jaw tremor and RUE tremor at rest noted. ?fine delayed postural tremor. Assessment/Plan 1. 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 Not associated with aphasia, leny weakness, or visual abnormalities. Etiology is somewhat perplexing. First glance these episodes are highly suspicious for focal seizures with intact awareness. However, he underwent ambulatory EEG monitoring in 2018 where he reportedly had 3 similar events without ictal correlate. EEG can be insensitive for small focal seizures however I would expect if these were infarct epileptic they would involve a large enough cortical area to have an EEG correlate. Further, the frequency of the events and the lack of relationship or change with several anti epileptic additions and escalations all argue against an epileptic etiology. I do note thathe acknowledges some reduction in the frequency of these events coinciding with the initiation of the weak anti epileptic (gabapentin) however this medication has a broad range of indications for multiple paroxsymal neurologic symptoms of a variety of etiologies. I think at this point I would just pursue a watch and wait approach. I think the only reasonable alternative would be another empiric trial of an anti epileptic but I don't think this is a good idea given a number of reasons as outlined below. Low threshold for additional monitoring, potentially on an inpatient basis. 2. ? Of Parkinson's The question of Parkinson's has been raised by his primary care provider who has continuity with patient and noted progressive symptoms. Lack of in person examination is a huge barrier in this case and I will facilitate an in person visit in the general neurology clinic. On the surface, the only cardinal feature he endorses is a tremor. He describes the tremor as very subtle but I suspect based upon limited video examination and history that it may be more significant. He denies symptoms suggestive of bradykinesia, rigidity, or postural instability. Considering that PD is a clinical diagnosisan examination is a must and I will defer any further evaluation of symptomatic treatment followingan examination. In any event, he notes symptoms are relatively mild at this point. I can not think of a unifying diagnosis connecting his spells described above with his other symptoms. 3. Remote history of epilepsy Details of his previous diagnosis of epilepsy are understandably sparse considering this occurred in the 1970s. No indication for anti epileptics at this point. Davey Oleary M.D. Neurophysiology Fellow Pager # [phone] History reviewed with patient and Dr. Oleary. We saw the patient together. I agree with the above evaluation, assessment and plan. In regards to a possible seizure disorder, it is possible that the episodes of numbness and tingling noted in the patient's right arm and sometimes right leg could be focal sensory seizures on. However the work-up has been negative thus far for seizures and they have not progressed over time. The history of arm and leg involvement with without facial involvement would be somewhat unusual for the propagation of the seizure. In any event at this point I do not feel any additional work-up is warranted nor would I recommend any drug trials. I agree with the plan as outlined by . Alexis Burrows MD Department of Neurological Sciences [facility] documented in this encounter Miscellaneous Notes * Addendum Note - Alexis Burrows MD - 02/09/2020 1000 EDTEncounter addended by: Alexis Burrows MD on: 02/09/2020 12:58 Actions taken: Clinical Note Signed documented in this encounter Plan of Treatment Upcoming Encounters Date Type Department Care Team (Late st Contact Info) Description 12/05/2023 13:[address] [facility] Neurology [address] [id number] Aida Zaragoza MD [address] [place] [address] [phone] 01/15/2024 9:30 EDT Procedure visit [address] 913221 Aida Zaragoza MD [address] [place] [address] [phone] 01/27/2024 8:15 EDT Telemedicine [address] 356951 Nickie Zaragoza NP [address] [place] [address] [phone] 04/22/2024 8:30 EST Procedure visit [address] 969271 Aida Zaragoza MD [address] [place] [address] [phone] 07/23/2024 8:[address] [facility] Neurology - S [place] [address] [place], [place] [address]85[address] Aida Zaragoza MD [address] [facility], [address] [place] [phone] documented as of this encounter Visit Diagnoses Diagnosis Tremor- Primary Abnormal involuntary movements Witnessed seizure-like activity ([facility]) documented in this encounter Historical Medications * This list may reflect changes made after this encounter. Medication Sig Dispensed Refills Start Date End Date UNABLE TO FIND Med Name: 'Restless legs' PRN for restless legs UNABLE TO FIND Med Name: cystiquell (per pt) 04/18/2020 FLUoxetine (PROZAC) 10 mg capsule 10 mg daily. 01/25/2020 04/18/2020 added in this encounter Care Teams Reticle Printer Relationship Specialty Start Date End Date Bernardo Nichols MD [address] [place] [address] PCP - General 06/10/17 documented as of this encounter
--- OUTSIDE RECORDS SUMMARY | 2023-11-13 12:59 | XMS_ITS | Encounter Summary ---
Author Organization [facility] Address [address] [place] [address] Care Team Providers Care Board Certified Behavioral Analyst Name Role Phone Bernardo Nichols MD Primary Care Provider [phone] Reason for Visit * (Routine) - Receiving Office to Obtain Authorization Specialty Diagnoses / Procedures Referred By Contac t Referred To Contact Procedures MR OUTSIDE IMAGES NEURO Unknown, Provider, Referral ID Status Reason Start Date Expiration Date Visits Requested Visits Authorized [id number] Receiving Office to Obtain Authorization 04/19/2020 1 1 Encounter Details Date Type Department Care Team (Latest Contact Info) Description 03/03/2020 - 03/03/2020 23:59 EST Hospital Encounter [facility] Secondary Reads [place] Discharge Disposition: Home [...] Contact Info) Description 12/05/2023 13:30 EDT Telemedicine [address] 713301 Aida Zaragoza MD [address] [place] [address] [phone] 01/15/2024 9:30 EDT Procedure visit [address] 380041 Aida Zaragoza MD [address] [place] [address] [phone] 01/27/2024 8:15 EDT Telemedicine [address] 769301 Nickie Zaragoza NP [address] [place] [address] [phone] 04/22/2024 8:30 EST Procedure visit [address] 856741 Aida Zaragoza MD [address] [place] [address] [phone] 07/23/2024 8:30 EDT Procedure visit [address] 568311 Aida Zaragoza MD [address] [place] [address] [phone] documented as of this encounter Procedures Procedure Name Priority Date/Time Associated Diagnosis Comments MR OUTSIDE IMAGES NEURO Routine 04/19/2020 11:11 EST documented in this encounter Results * MR OUTSIDE IMAGES NEURO (04/19/2020 11:11 EST) Narrative 04/19/2020 11:11 EST This is a non-reportable exam. Provider Unknown MD SILVA OTHER IMAGING OR DERABLES documented in this encounter Visit Diagnoses Not on filedocumented in this encounter Care Teams Board Certified Behavioral Analyst Relationship Specialty Start Date End Date Bernardo Nichols MD [address] [place] [address] PCP - General 06/10/17 documented as of this encounter
--- OUTSIDE RECORDS SUMMARY | 2023-11-13 12:59 | XMS_ITS | Encounter Summary ---
Author Organization [facility] Address [address] [place] [address] Care Team Providers Care Addiction Psychiatrist Name Role Phone Bernardo Nichols MD Primary Care Provider [phone] Reason for Visit * Reason Onset Date Comments Other 04/25/2020 Encounter Details Date Type Department Care Team (Late st Contact Info) Description 04/25/2020 Telephone [facility] Adult Neurology - [facility] [address] [place], [place] [address] Tania Haq MD [address] [place], [place] 218691 Other Social History Tobacco Use Types Packs/Day [...] * Telephone Encounter - Alicia Castanon - 04/25/2020 1206 EST Power called to check on EEG, Told him it was still in triage but to check back with us later in theweek. documented in this encounter Plan of Treatment Upcoming Encounters Date Type Department Care Team (Late st Contact Info) Description 12/05/2023 13:30 EDT Telemedicine [facility] Neurology [address] 164091 Aida Zaragoza MD [address] [place] [address] [phone] 01/15/2024 9:30 EDT Procedure visit [address] [id number] Aida Zaragoza MD [address] [place] [address] [phone] 01/27/2024 8:15 EDT Telemedicine [address] 914971 Nickie Zaragoza NP [address] [place] [address] [phone] 04/22/2024 8:30 EST Procedure visit [address] [address] Aida Zaragoza MD [address] [place] [address] [phone] 07/23/2024 8:30 EDT Procedure visit [facility] Neurology - [address] [place] [address] [place], [place] [address] Aida Zaragoza MD [address] [place] [address], Level [address] [place] [phone] documented as of this encounter Visit Diagnoses Not on filedocumented in this encounter Care Teams Addiction Psychiatrist Relationship Specialty Start Date End Date Bernardo Nichols MD [address] [place] [address] PCP - General 06/10/17 documented as of this encounter
--- OUTSIDE RECORDS SUMMARY | 2023-11-13 12:59 | XMS_ITS | Encounter Summary ---
Author Organization [facility] Address [address] [place] [address] Care Team Providers Care Forge Tender Name Role Phone Bernardo Nichols MD Primary Care Provider [phone] Reason for Visit * Reason Onset Date Comments Appointment Related 02/04/2020 Encounter Details Date Type Department Care Team (Late st Contact Info) Description 02/04/2020 Telephone [facility] Neurophysiology - [facility] [address] [place], [place] [id number] Davey Oleary MD [address] [facility] [place] [phone] Appointment Related Social History Tobacco Use Types Packs/Day Years Used Date Smoking Tobacco: Never Assessed AUDIT-C Answer Date Recorded Q1: How often [...] encounter Miscellaneous Notes * Telephone Encounter - Lg Alicia - 02/04/2020 1600 EDT Power called and scheduled a NPV TVD with Dr Oleary on February 08 Meeting ID: [id number] Password: [id number] documented in this encounter Plan of Treatment Upcoming Encounters Date Type Department Care Team (Late st Contact Info) Description 12/05/2023 13:30 EDT Telemedicine [facility] Neurology S [address] [id number] Aida Zaragoza MD [address] [place] [address] [phone] 01/15/2024 9:30 EDT Procedure visit [address] 205021 Aida Zaragoza MD [address] [place] [address] [phone] 01/27/2024 8:15 EDT Telemedicine [address] 010771 Nickie Zaragoza NP [address] [place] [address] [phone] 04/22/2024 8:30 EST Procedure visit [address] 944761 Aida Zaragoza MD [address] [place] [address] [phone] 07/23/2024 8:30 EDT Procedure visit [facility] Neurology S [address] 338701 Aida Zaragoza MD 1 [facility], Level 2 [place] [phone] documented as of this encounter Visit Diagnoses Not on filedocumented in this encounter Care Teams Forge Tender Relationship Specialty Start Date End Date Bernardo Nichols MD [address] [place], [place] [address] PCP - General 06/10/17 documented as of this encounter
--- OUTSIDE RECORDS SUMMARY | 2023-11-13 12:59 | XMS_ITS | Encounter Summary ---
Author Organization [facility] Address [address] [place] [address] Care Team Providers Care Geoscience Technician Name Role Phone Bernardo Nichols MD Primary Care Provider [phone] Encounter Details Date Type Department Care Team (Latest Contact Info) Description 05/10/2020 Travel Social History Tobacco Use Types Packs/Day [...] 15:00 EST documented as of this encounter Plan of Treatment Upcoming Encounters Date Type Department Care Team (Late st Contact Info) Description 12/05/2023 13:30 EDT Telemedicine [facility] - [place] [address] [place] [address] [id number] Aida Zaragoza MD [address] [phone] 01/15/2024 9:30 EDT Procedure visit [address] [address] Aida Zaragoza MD [address] [place] [address] [phone] 01/27/2024 8:15 EDT Telemedicine [address] 237521 Nickie Zaragoza NP [address] [place] [address] [phone] 04/22/2024 8:30 EST Procedure visit [address] [address] Aida Zaragoza MD [address] [place] [address] [phone] 07/23/2024 8:30 EDT Procedure visit [address] 397341 Aida Zaragoza MD [address] [place] [address] [phone] documented as of this encounter Visit Diagnoses Not on filedocumented in this encounter Care Teams Geoscience Technician Relationship Specialty Start Date End Date Bernardo Nichols MD [address] [place] [address] PCP - General 06/10/17 documented as of this encounter
--- OUTSIDE RECORDS SUMMARY | 2023-11-13 12:59 | XMS_ITS | Encounter Summary ---
Author Organization [facility] Address [address] [place] [address] Care Team Providers Care Mentally Retarded Teacher Name Role Phone Bernardo Nichols MD Primary Care Provider [phone] Encounter Details Date Type Department Care Team (Latest Contact Info) Description 06/21/2020 Travel Social History Tobacco Use Types Packs/Day [...] have Coronavirus / COVID-19? No / Unsure 06/21/2020 15:59 EST documented as of this encounter Plan of Treatment Upcoming Encounters Date Type Department Care Team (Late st Contact Info) Description 12/05/2023 13:30 EDT Telemedicine [facility] Neurology - [address] [place] 1 [place], [place] [address] Aida Zaragoza MD [address] [phone] 01/15/2024 9:30 EDT Procedure visit [address] [address] Aida Zaragoza MD [address] [place] [address] [phone] 01/27/2024 8:15 EDT Telemedicine [address] 918041 Nickie Zaragoza NP [address] [place] [address] [phone] 04/22/2024 8:30 EST Procedure visit [address] [address] Aida Zaragoza MD [address] [place] [address] [phone] 07/23/2024 8:30 EDT Procedure visit [address] 033391 Aida Zaragoza MD [address] [place] [address] [phone] documented as of this encounter Visit Diagnoses Not on filedocumented in this encounter Care Teams Mentally Retarded Teacher Relationship Specialty Start Date End Date Bernardo Nichols MD [address] [place] [address] PCP - General 06/10/17 documented as of this encounter
--- OUTSIDE RECORDS SUMMARY | 2023-11-13 12:59 | XMS_ITS | Encounter Summary ---
Author Organization [facility] Address [address] [place] [address] Care Team Providers Care Hook Up Name Role Phone Bernardo Nichols MD Primary Care Provider [phone] Reason for Visit * Reason Onset Date Comments Appointment Related 05/20/2020 Encounter Details Date Type Department Care Team ([facility] st Contact Info) Description 05/20/2020 Telephone [facility] Neurology - S [address] 106161 Tania Haq MD [address] [place], [place] [id number] Appointment Related Social History Tobacco Use Types [...] 15:00 EST documented as of this encounter Miscellaneous Notes * Telephone Encounter - Tania Haq MD - 05/22/2020 1934 EST Left message: 1.There are no documented interactions with sinemet and Covid vaccine and recommended that he get covd vaccine. 2. Recommended calling back if he has any new muscle weakness or worsening symptoms. 3.Recommenced starting Daily miralax for relieving the Sinemet side effects of constipation. 4. He should be seen in person as documented in my progress note. In person exam is crucial given that we are trialing sinemet for diagnosis of Parkinson's. Electronically signed by TANIA HAQ MD 05/22/20 19:38 PGY2 Neurology Resident Pager # [phone] * Telephone Encounter - Delmy Osorio RN - 05/20/2020 1503 EST Call to patient. He had several questions. 1. Confirmed that there are no conflicts with his current medication and the COVID vaccine. 2. The symptoms have improved, but he is still having intermittent tingling and numbness on the right side shoulder and arm. Is that normal? Should the medication have fixed that? 3.He has been experiencing significant constipation. Confirmed with patient that metamucil is safe to use, and he should contact his PCP if he continues to have issues. * Telephone Encounter - Aida Sotomayor - 05/20/2020 1447 EST Bill is returning Delmy's call - the call dropped - I tried to call him back twice and it kept dropping. * Telephone Encounter - Dlemy Osorio RN - 05/20/2020 1430 EST Call to patient. Left message to call back. * Telephone Encounter - Peter Rueda - 05/20/2020 1249 EST Patient calling with questions about medications. Requesting call back to day at [phone] Also, needs to be advised for follow up, currently scheduled for 06/08 ZOOM, And 06/21 IN PERSON. Please advise which appointments patient should keep, patient unsure if provider would prefer one appointment type. documented in this encounter Plan of Treatment Upcoming Encounters Date Type Department Care Team (Late st Contact Info) Description 12/05/2023 13:30 EDT Telemedicine [facility] Neurology S [address] [id number] Aida Zaragoza MD [address] [place] [address] [phone] 01/15/2024 9:30 EDT Procedure visit [address] 816391 Aida Zaragoza MD [address] [place] [address] [phone] 01/27/2024 8:15 EDT Telemedicine [address] 890281 Nickie Zaragoza NP [address] [place] [address] [phone] 04/22/2024 8:30 EST Procedure visit [facility] Neurology [address] 842841 Aida Zaragoza MD [address] [place] [phone] 07/23/2024 8:30 EDT Procedure visit [facility] Neurology - S [address] [address] Aida Zaragoza MD 1 [facility], Level 2 [place] [phone] documented as of this encounter Visit Diagnoses Not on filedocumented in this encounter Care Teams Hook Up Relationship Specialty Start Date End Date Bernardo Nichols MD [address] [place], [place] [id number] PCP - General 06/10/17 documented as of this encounter
--- OUTSIDE RECORDS SUMMARY | 2023-11-13 12:59 | XMS_ITS | Encounter Summary ---
Author Organization [facility] Address [address] [place] [address] Care Team Providers Care Remelter Name Role Phone Bernardo Nichols MD Primary Care Provider [phone] Reason for Visit * Reason Onset Date Comments Appointment Related 05/23/2020 Encounter Details Date Type Department Care Team ([facility] st Contact Info) Description 05/23/2020 Telephone [facility] Neurology - S [address] 716001 Tania Haq MD [address] [place], [place] [phone] Appointment Related Social History Tobacco Use Types [...] encounter Miscellaneous Notes * Telephone Encounter - Tomasa Christianson - 05/23/2020 1056 EST Power called to confirm date, place and time of his appointment 06/21 @ 4:00 documented in this encounter Plan of Treatment Upcoming Encounters Date Type Department Care Team (Late st Contact Info) Description 12/05/2023 13:30 EDT Telemedicine [facility] Neurology [address] 693101 Aida Zaragoza MD [address] [place] [address] [phone] 01/15/2024 9:30 EDT Procedure visit [address] 613981 Aida Zaragoza MD [address] [place] [address] [phone] 01/27/2024 8:15 EDT Telemedicine [address] 775291 Nickie Zaragoza NP [address] [place] [address] [phone] 04/22/2024 8:30 EST Procedure visit [address] 383251 Aida Zaragoza MD [address] [place] [address] [phone] 07/23/2024 8:30 EDT Procedure visit [facility] Neurology - [address] [place] 1 [place], [place] [address]371 Aida Zaragoza MD [address] [place] [address], Level [address] [place] [phone] documented as of this encounter Visit Diagnoses Not on filedocumented in this encounter Care Teams Remelter Relationship Specialty Start Date End Date Bernardo Nichols MD [address] [place] [address] PCP - General 06/10/17 documented as of this encounter
--- OUTSIDE RECORDS SUMMARY | 2023-11-13 12:59 | XMS_ITS | Encounter Summary ---
Author Organization [facility] Address [address] [place] [address] Care Team Providers Care Poacher Operator Name Role Phone Bernardo Nichols MD Primary Care Provider [phone] Encounter Details Date Type Department Care Team (Latest Contact Info) Description 07/05/2020 Travel Social History Tobacco Use Types Packs/Day [...] have Coronavirus / COVID-19? No / Unsure 07/05/2020 5:50 EDT documented as of this encounter Plan of Treatment Upcoming Encounters Date Type Department Care Team (Late st Contact Info) Description 12/05/2023 13:30 EDT Telemedicine [facility] Neurology - S [place] 1 [place], [place] [address] Aida Zaragoza MD [address] [phone] 01/15/2024 9:30 EDT Procedure visit [address] [address] Aida Zaragoza MD [address] [place] [address] [phone] 01/27/2024 8:15 EDT Telemedicine [address] 892231 Nickie Zaragoza NP [address] [phone] 04/22/2024 8:30 EST Procedure visit [address] [address] Aida Zaragoza MD [address] [place] [address] [phone] 07/23/2024 8:30 EDT Procedure visit [address] 563351 Aida Zaragoza MD [address] [place] [address] [phone] documented as of this encounter Visit Diagnoses Not on filedocumented in this encounter Care Teams Poacher Operator Relationship Specialty Start Date End Date Bernardo Nichols MD [address] [place] [address] PCP - General 06/10/17 documented as of this encounter
--- OUTSIDE RECORDS SUMMARY | 2023-11-13 12:59 | XMS_ITS | Encounter Summary ---
Author Organization [facility] Address [address] [place] [address] Care Team Providers Care Body Joiner Name Role Phone Bernardo Nichols MD Primary Care Provider [phone] Reason for Visit * Reason Onset Date Comments Other 06/09/2020 Encounter Details Date Type Department Care Team (Late st Contact Info) Description 06/09/2020 Telephone [facility] Adult Neurology - [facility] [address] [place], [place] [address] Tania Haq MD [address] [place], [place] [address] Other Social History Tobacco Use Types Packs/Day [...] * Telephone Encounter - Darlene Hansen - 06/09/2020 7514 EST Spoke to Maria from [facility], she requested that the Notes from the last visit on 05/10/2020 be faxed over to the office. Faxed notes to office. documented in this encounter Plan of Treatment Upcoming Encounters Date Type Department Care Team (Late st Contact Info) Description 12/05/2023 13:30 EDT Telemedicine [facility] Neurology S [address] [phone] Aida Zaragoza MD [address] [place] [address] [phone] 01/15/2024 9:30 EDT Procedure visit [address] 115621 Aida Zaragoza MD [address] [place] [address] [phone] 01/27/2024 8:15 EDT Telemedicine [facility] Neurology S [address] 392181 Nickie Zaragoza NP [address] [place] [address] [phone] 04/22/2024 8:30 EST Procedure visit [facility] Neurology S [address] 803451 Aida Zaragoza MD [address] [place] [address] [phone] 07/23/2024 8:30 EDT Procedure visit [facility] Neurology - S [place] 1 [place], [place] [phone] Aida Zaragoza MD [address] [place] [address], Level [address] [place] [address] documented as of this encounter Visit Diagnoses Not on filedocumented in this encounter Care Teams Body Joiner Relationship Specialty Start Date End Date Benrardo Nichols MD [address] [place] [address] PCP - General 06/10/17 documented as of this encounter
--- OUTSIDE RECORDS SUMMARY | 2023-11-13 12:59 | XMS_ITS | Encounter Summary ---
Author Organization [facility] Address [address] [place] [address] Care Team Providers Care Culinary Worker Name Role Phone Bernardo Nichols MD Primary Care Provider [phone] Reason for Visit * Reason Onset Date Comments Other 07/27/2020 Encounter Details Date Type Department Care Team (Late st Contact Info) Description 07/27/2020 Telephone [facility] Adult Neurology - [facility] [address] [place], [place] 4[address] Tania Haq MD [address] [place], [place] [address] Other Social History Tobacco Use Types Packs/Day [...] 5:50 EDT documented as of this encounter Miscellaneous Notes * Telephone Encounter - Domitila Bustamante MA - 07/27/2020 1326 EDT TC to Jim to schedule In Person FUR with Dr. Haq Scheduled for Saturday, 08/08 at 3:50 pm Pt will confirm that he can get a ride and call back if he needs to change that * Telephone Encounter - Ani Arechiga - 07/27/2020 1212 EDT Pt calling in requesting a call back with his MRI results. Would like to know what is the next step. Please call back to discuss. documented in this encounter Plan of Treatment Upcoming Encounters Date Type Department Care Team (Late st Contact Info) Description 12/05/2023 13:30 EDT Telemedicine [facility] Neurology S [address] [phone] Aida Zaragoza MD [address] [place] [address] [phone] 01/15/2024 9:30 EDT Procedure visit [facility] Neurology S [address] 443141 Aida Zaragoza MD [address] [place] [address] [phone] 01/27/2024 8:15 EDT Telemedicine [facility] Neurology S [address] 351501 Nickie Zaragoza NP [address] [place] [address] [phone] 04/22/2024 8:30 EST Procedure visit [facility] Neurology S [address] [phone] Aida Zaragoza MD [address] [place] [address] 2 [place] [phone] 07/23/2024 8:30 EDT Procedure visit [facility] Neurology S [address] [phone] Aida Zaragoza MD [address] [place] [phone] documented as of this encounter Visit Diagnoses Not on filedocumented in this encounter Care Teams Culinary Worker Relationship Specialty Start Date End Date Bernardo Nichols MD [address] [place] [address] PCP - General 06/10/17 documented as of this encounter
--- OUTSIDE RECORDS SUMMARY | 2023-11-13 12:59 | XMS_ITS | Encounter Summary ---
Author Organization [facility] Address [address] [place] [address] Care Team Providers Care Biztalk Administrator Name Role Phone Bernardo Nichols MD Primary Care Provider [phone] Reason for Referral * Office Procedure (3 - 10 Business Days) - Receiving Office to Obtain Authorization Specialty Diagnoses / Procedures Referred By Contac t Referred To Contact Neurology Diagnoses Paresthesias in right hand Procedures EEG Teo Johnson MD [address] [facility] Medical Office Building, [address] [place] [address] [facility] [address] [place] [address] Referral ID Status Reason Start Date Expiration Date Visits Requested Visits Authorized [id number] Receiving Office to Obtain Authorization 04/18/2020 1 1 Reason for Visit * Reason Comments New Patient Visit Telemedicine Video Visit * Referral (3 - 10 Business Days) - Closed Specialty Diagnoses / Procedures Referred By Contac t Referred To Contact Neurology Diagnoses Parkinsonian features Davey Oleary MD [address] [place] [phone] Neurology 2c, Resident Referral ID Status Reason Start Date Expiration Date Visits Re quested Visits Authorized [id number] Closed 1 1 Encounter Details Date Type Department Care Team (Late st Contact Info) Description 04/18/2020 13:30 EST Telemedicine [facility] Adult Neurology - [facility] [address], [place] [address] Tania Haq MD [address] [place], [place] [id number] Paresthesias in right hand (Primary Dx) Social History Tobacco Use Types [...] Progress Notes * Tania Haq MD - 04/18/2020 1330 EST Neurology Outpatient Telemedicine H+P Requesting Provider: Davey Oleary* Evaluation for: Abnormal movements and occasional numbness in the right arm and leg History of Present Illness: Mr.William Yumiko Gonzalez is a 74 y.o. 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 He is zooming to clinic todayaccompanied by no-one for evaluation of numbness and tingling on right side body. The history is obtained from the patient and review of the EMR. Mr. Gonzalez was seen by Dr. Oleary on 02/09/20 for evaluation of right adama parasthesias that had started in [id number] and they have restarted in 2018. The paraesthesias which were thought to be related to his prior, but never formally diagnosed history of focal epilepsy. His epilepsy dates back tohis and semiology consisted of tongue biting, occasional urinary incontinence, and falling outof bed. Last seizure was in the . Was treated initially with phenytoin + phenobarb, then was put on phenobarb monotherapy [id number] (SE: fatigue) So was switched to levetiracetam and carbamazepine [id number], now he is not any AEDs. Has had 30 min EEG on 06/11/2017 while on Levetiracetam, oxcarb azepine which showed mild, intermittent left frontal-temporal slowing and follow-up 24 ambulatory EEG that day showed similar findings and no correlation of right sided tingling and tightening on EEG. Other work-up noted in Dr. Oleary's note includes an MRI from 2016 showing non specific T2/FLAIR hyperintensities. MRI report from 05/2018 showed no acute intracranial abnormality. Carotid U/s from 05/07/2017 with mild plaque without evidence of significant stenosis. MRI cervical spine from 04/18/2017 with multilevel NF narrowing but no significant central stenosis. No imaging was available for my review priro to this appointment. Today, Mr.William Yumiko Gonzalez reports: Constant headaches, has had on/off headaches for 3 weeks, but now 1 week of headaches. Slowness of movement when washing dishes his hands are slow, he doesn't feel slow when walking. Thinks he would be able to catch himself if he were to be bumped hard enough to cause a fall. Denies any falls. Has i nconsistent slight balance problem- if he turns suddenly or quickly he has a brief moment of feeling like his feet won't move quick enough, denies vertigo. Happens occasionally not consistent. Also reports detached feelings, has a vague feeling, happens once every couple of days, lasts 5mins. Writting and printing has deteriorated the polling place/money order clerk were not able to accept signature for voting.N Noticed it this last voting season. Breathless with activity- doesn't have cardiac conditions, had Left heart cath that didn't have etiology to dyspnea. Had PFTs done at [facility] and all looked normal. ROS: 15 systems reviewed and negative other than as in HPI. Neuro ROS: Bradykinesia: Walking speed is good Rest Tremor: reports 6 months of slight tremor in R>L, reports that it subsides with action Action Tremor: no action tremor Balance: occasional trouble when turning Swallowing: reports none Speech: none that he is aware Facial Expressions: none Double Vision: denies Handwriting: signature looks cramped as he continues to write and tapers Sleep: sleeps 8.5 hrs, does not wake up rested, but not exhausted, back pain wakes him up, nocturia Bowel function: constipation on regular basis- miralax Bladder function: nocturia, PCP discussed bladder device Orthostatic symptoms: half the time has symptoms with standing up or climbing staris Current medications: Methylphenidate Family history Father stroke 60s. Mother stroke 90s. 2 brothers from cancer. Sister healthy. No history of inherited neurologic disorders. ?? Social history Live in [place], [place]. 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 One drink a week. Non smoker. ?? [...] Allergies Medications: Current Outpatient Medications Medication ??? amoxicillin (AMOXIL) 500 mg capsule ??? cholecalciferol, Vitamin D3, 1,000 unit tablet ??? FLUoxetine (PROZAC) 10 mg capsule ??? Magnesium 250 mg tablet ??? methen-sod phos-meth blue-hyos 120-40.8-10 mg capsule ??? methylphenidate HCl (RITALIN;METHYLIN) 10 mg tablet ??? OMEGA-3 330 MG-DHA AND EPA 300 MG-ALGAL OIL 600 MG CAPSULE ??? UNABLE TO FIND ??? UNABLE TO FIND No current facility-administered medications for this visit. Social History: Live in [place], [place]. 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 One drink a week. Non smoker. Family History: Family History Problem Relation Age of Onset ??? Stroke Mother ??? Stroke Father ??? Cancer Brother Physical Exam: Vitals: RR: 15 height 5 ' 1'' weight 183 lbs There were no vitals filed for this visit. General Exam General: Awake and alert, sitting comfortably in at home, in no acute distress, valdivia moustache Head, Ears, Nose and Throat: Atraumatic, oropharynx without exudates or erythema. No scleral icterus. Pulmonary: non-labored breathing, symmetrical chest rise Gastrointestinal: abdomen is non-distended Extremities: warm and well-perfused, no cyanosis or clubbing. Skin: no jaundice or rashes. Psychiatric: Normal affect, judgement and insight, linear thought process NEUROLOGIC EXAM: Mental Status: Awake and alert. Oriented to self, time and situation. Follows all commands. Naming is intact. Language is fluent. Can ID high and low frequency objects. Serials 7s intact. Cranial Nerves: CN I: Deferred CN II: Visual rainey full to confrontation. CN III-IV & : EOMI. Convergence is intact. No ANN. Mild left ptosis. No nystagmus noted Primary gaze: No square wave jerks or nystagmus. Smooth pursuit were full without any saccadic intrusionsor nystagmus. Saccades were full and without nystagmus CN V: V1-V3 intact to light touch. CN VII: Face is symmetric at rest and with activation CN VIII: Hearing is intact to voice CN IX-X: Palate elevates symmetrically on activation. No hoarseness or dysarthria CN XI: Symmetric shoulder shrug. CN XII: Tongue protrusion midline, without deviation, atrophy, or fasciculations Motor: normal bulk for age None or very very mild right Pronator drift. Shoulder shrug slowness / restriction: none Repetitive alternating movements slowness / amplitude reduction / interruptions in upper limbs (UL): R hand mildly slower and decrease in amplitute, left hand has tremor when screwing in lightbulbs, hard to tell if video artifact. Repetitive alternating movements slowness / amplitude reduction / interruptions in lower limbs (LL): not tested Postural tremor in UL: None apparent on video Postural tremor in LL: None apparent on video Action tremor in UL: None apparent on video Action tremor in LL: None apparent on video Ataxia in UL: none Ataxia in LL: none Rest tremor in UL: None apparent on video Rest tremor in LL: None apparent on video Rest tremor in head / neck / chin: None apparent on video Muscle tone abnormalities neck: not tested Muscle tone abnormalities in UL: not tested Muscle tone abnormalities LL: not tested Standing up with arms folded: no difficulty Stooped posture: shoulders are rounded Arm swing limitation: cannot assess on video Gait ataxia: Backwards pull test: not tested dyskinetic movements observed: none observed Strength:cannot assess on video Deep tendon reflexes: deffered Sensory: deffered Coordination:Finger nose Finger: intact, no dysmetria, Heel to Reilly: notested Gait: no atxia, but was not able tot visualize feet, walking appear effortless. Ancillary Studies: I personally independently reviewed the imaging studies: MRI was completed at [facility] but will need to call to get images pushed. I personally independently reviewed the laboratory studies [...] events were not associated with epileptiform activity. Impression: Mr.William Yumiko Gonzalez is a 74 y.o. right-handed w/ PMHx of HTN, angina, bradycardia w/ heart block, GERD, COPD, hyperlipidemia, history of epilepsy and spells of slurred speech and right hemibody numbness concerning for seizures without EEG correlate, orthostatic hypotension, abnormal movements who presents for evaluation of parkinson's disease. We had in person exam scheduled but this had to switched last minute to telemedicine visit due to my high risk COVID exposure last week. His prior telemedicine visit was concerning for a possible movement disorder, PD and I was going to evaluate him in person. Today's video appointment is insufficient to diagnosis PD. He still has complaints for paroxysmal right adama body paraesthesias that appeared to happen 50 years ago for several years and have now remerged in the setting of discontinuation of his Phenobarbital. Given that his prior EEGs were conducted while on AEDs it is possible that repeating an EEG may be more fruitful to help elucidate the etiology of his paraesthesias. I plan to see Mr. Gonzalez again for an in person evaluation. Plan -standard EEG -Track down MRI -F/U for in person exam I discussed my thoughts as above in detail with my attending Dr. Elizabeth Estrada MD Electronically signed by TANIA HAQ MD 04/18/20 14:08 PGY2 Neurology Resident Pager # [phone] A copy of this note was sent to the referring provider, The concept of ???Telemedicine?? has been described [...] today's encounter visit: TANIA HAQ MD * Teo Johnson MD - 04/18/2020 1330 EST Attestation: I saw and evaluated the patient via video with Dr. Haq on 04/18/2020. I agree with the findings and plan of care as documented in Dr. Haq's note. Teo Johnson MD Attending Physician - Department of Neurology 04/19/2020 7:55 documented in this encounter Plan of Treatment Upcoming Encounters Date Type Department Care Team (Late st Contact Info) Description 12/05/2023 13:30 EDT Telemedicine [address] [id number] Aida Zaragoza MD [address] [place] [address] [phone] 01/15/2024 9:30 EDT Procedure visit [address] [id number] Aida Zaragoza MD [address] [place] [address] [phone] 01/27/2024 8:15 EDT Telemedicine [address] [id number] Nickie Zaragoza NP [address] [place] [address] [phone] 04/22/2024 8:30 EST Procedure visit [address] [id number] Aida Zaragoza MD [address] [place] [address] [phone] 07/23/2024 8:30 EDT Procedure visit [address] [id number] Aida Zaragoza MD [address] [place] [address] [phone] documented as of this encounter Results * EEG (05/03/2020 12:00 EST) Narrative [facility] - 05/03/2020 12:00 Elizabeth Spain MD ? 05/04/2020 14:26 [facility] ??Name: Jim Gonzalez Clinical Neurophysiology Laboratory ?? Giuseppe Plummer ? : [address], [place] ?Date: 05/03/2020 Electroencephalogram Report Referring Physician: Teo Johnson MD ? Study Number: [id number] Clinical Indication: A 74 y.o. man referred for standard EEG to evaluate episodes of right hemiparesthesia's. Medications: Current Outpatient Medications Medication ? ? cholecalciferol, Vitamin D3, 1,000 unit tablet ? ? Magnesium 250 mg tablet ? ? methylphenidate HCl (RITALIN;METHYLIN) 10 mg tablet ? ? OMEGA-3 ??330 MG-DHA AND EPA 300 MG-ALGAL OIL 600 MG CAPSULE ? ? UNABLE TO FIND No current facility-administered medications for this encounter. ?? Technical Description: Standard EEG: An in-laboratory digital EEG is performed utilizing silver-silver chloride electrodes placed according to the International 10-20 system of electrode placement. ??CPZ serves as the recording reference electrode. The following additional electrodes are also placed: ECG electrodes , anterior temporal electrodes ?? The study begins at 1159 until 1238 with a total study duration of 39 minutes. During this study the following states the followingwere recorded: Wake, drowsiness Subject factors: Cooperative The patient and/or caregivers report:9 hours of sleep night before study; Estimated average 9 hours of sleep Previous EEG Study? Yes Findings: The waking background cerebral activity is organized, continuous and reactive; represented by low-medium amplitude alpha frequencies as well as low voltage faster frequencies. ??During wakefulness, there is occasional intermittent, bilateral independent polymorphic theta. During drowsiness and light sleep there are 0.5-4 s runs of low to moderate amplitude delta activity independently over either temporal region. ?? Hyperventilation is not performed due to COVID precautions. ?? Photic stimulation with 10 second trains of stimulation by 10 second intervals without stimulation are performed at flash frequencies at intervals between 1 to 20 Hz and then downward from 60 to 25 Hz. No abnormal responses are recorded. ECG channel reveals a regular rhythm. No seizures, epileptiform activity or target events are captured. Impression: Abnormal EEG with the above described findings most consistent with mild independent focal cerebral dysfunction over either cerebral hemisphere. Clinical Correlation: These findings suggest independent bilateral cerebral lesions best addressed by his clinical history, exam and head imaging studies. ??No seizures nor interictal discharges are recorded however this does not exclude the possibility of epilepsy. ??If clinical suspicion persists would recommend ambulatory EEG monitoring. Davey Oleary M.D. Neurophysiology Fellow Pager # [phone] I personally reviewed the study and the fellow's interpretation in detail, edited the above report and agree with the findings documented. ELIZABETH RAMÍREZ MD Diplomate, [place] [employer] and Neurology - Neurology with added qualifications in clinical neurophysiology. 14:26 05/04/2020 Teo Johnson MD NEUROLOGY ORDERABLES [facility] POINT OF CARE documented in this encounter Visit Diagnoses Diagnosis Paresthesias in right hand- Primary Disturbance of skin sensation Paresthesias in right hand Disturbance of skin sensation Seizure-like activity (HCC-CMS) Other convulsions documented in this encounter Discontinued Medications Medication Sig Discontinue Reason Start Date End Da te amoxicillin (AMOXIL) 500 mg capsule 500 mg. Error 01/30/2020 04/18/2020 FLUoxetine (PROZAC) 10 mg capsule 10 mg daily. Error 01/25/2020 04/18/2020 methen-sod phos-meth blue-hyos 120-40.8-10 mg capsule Take by mouth. Error 04/18/2020 UNABLE TO FIND Med Name: christianne (per pt) 04/18/2020 documented as of this encounter Historical Medications * This list may reflect changes made after this encounter. Medication Sig Dispensed Refills Start Date End Date OMEGA-3 330 MG-DHA AND EPA 300 MG-ALGAL OIL 600 MG CAPSULE 3,200 mg daily. cholecalciferol, Vitamin D3, 1,000 unit tablet Take 5 Tablets by mouth daily. MAGNESIUM ORAL Take 1,000 mg by mouth. 2 500 MG TABS methen-sod phos-meth blue-hyos 120-40.8-10 mg capsule Take by mouth. 04/18/2020 amoxicillin (AMOXIL) 500 mg capsule 500 mg. 01/30/2020 04/18/2020 methylphenidate HCl (RITALIN;METHYLIN) 10 mg tablet TAKE 1 TABLET BY MOUTH TWICE DAILY MORNING AND NOON 04/07/2020 07/24/2021 added in this encounter Care Teams Biztalk Administrator Relationship Specialty Start Date End Date Bernardo Nichols MD [address] [place] [address] PCP - General 06/10/17 documented as of this encounter
--- OUTSIDE RECORDS SUMMARY | 2023-11-13 12:59 | XMS_ITS | Encounter Summary ---
Author Organization [facility] Address [address] [place] [address] Care Team Providers Care Sawyer Cork Slabs Name Role Phone Bernardo Nichols MD Primary Care Provider [phone] Reason for Visit * Reason Onset Date Comments Appointment Related 06/27/2020 Encounter Details Date Type Department Care Team (Late st Contact Info) Description 06/27/2020 Telephone [facility] Adult Neurology - [facility] [address], [place] [phone] Tania Haq MD [address] [place], [place] [address] Appointment Related Social History Tobacco Use Types [...] Miscellaneous Notes * Telephone Encounter - Aleah Mckeon - 06/27/2020 0594 EDT Jim calling to see if Dr. Haq had placed an order for his MRI to be done because he hasn'theard from anyone. I advised that she did place the order and transferred him to MRI scheduling. documented in this encounter Plan of Treatment Upcoming Encounters Date Type Department Care Team (Late st Contact Info) Description 12/05/2023 13:30 EDT Telemedicine [facility] Neurology S [address] [id number] iAda Zaragoza MD [address] [place] [address] [phone] 01/15/2024 9:30 EDT Procedure visit [address] [id number] Aida Zaragoza MD [address] [place] [address] [phone] 01/27/2024 8:15 EDT Telemedicine [address] [id number] Nickie Zaragoza NP [address] [place] [address] [phone] 04/22/2024 8:30 EST Procedure visit [facility] Neurology S [address] [id number] Aida Zaragoza MD [address] [place] [address] [phone] 07/23/2024 8:30 EDT Procedure visit [facility] Neurology - [address] [place] [address] [place], [place] [id number] Aida Zaragoza MD [address] [place] [address], [address] [place] [phone] documented as of this encounter Visit Diagnoses Not on filedocumented in this encounter Care Teams Sawyer Cork Slabs Relationship Specialty Start Date End Date Bernardo Nichols MD [address] [place] [address] PCP - General 06/10/17 documented as of this encounter
--- OUTSIDE RECORDS SUMMARY | 2023-11-13 12:59 | XMS_ITS | Encounter Summary ---
Author Organization [facility] Address [address] [place] [address] Care Team Providers Care Powerhouse Mechanic Helper Name Role Phone Bernardo Nichosl MD Primary Care Provider [phone] Reason for Referral * Radiology Services (Routine) - Closed Specialty Diagnoses / Procedures Referred By Contac t Referred To Contact Radiology Diagnoses Intractable headache, unspecified chronicity pattern, unspecified headache type Procedures MR CERVICAL SPINE WO CONTRAST Tramaine Mejia MD [address] [place] [address] [address] [place] [address] Referral ID Status Reason Start Date Expiration Date Visits Re quested Visits Authorized [id number] Closed 06/21/2020 1 1 Reason for Visit * Reason Comments Follow-up Encounter Details Date Type Department Care Team (Late st Contact Info) Description 06/21/2020 16:00 EST Office Visit [facility] - [facility] [address] [place], [place] [address] Tania Haq MD [address] [place], [place] [address] Intractable headache, unspecified chronicity pattern, unspecified headache type (Primary Dx) Social History Tobacco Use Types [...] have Coronavirus / COVID-19? No / Unsure 06/28/2020 19:21 EDT documented as of this encounter Last Filed Vital Signs Vital Sign Reading Time Taken Comments Blood Pressure 132/86 06/21/2020 1612 EST Pulse 94 06/21/2020 1612 EST Temperature - - Respiratory Rate 14 06/21/2020 1612 EST Oxygen Saturation 98% 06/21/2020 1612 EST Inhaled Oxygen Concentration - - Weight 82.6 kg (182 lb) 06/21/2020 1612 EST Height 180.3 cm (5' 10.98) 06/21/2020 1612 EST Body Mass Index 25.4 06/21/2020 1612 EST documented in this encounter Ordered Prescriptions Prescription Sig Dispensed Refills Start Date End Da te gabapentin (NEURONTIN) 100 mg capsule Take 1 Cap by mouth 3 times daily. 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 The [...] phenobarb, then was put on phenobarb monotherapy [id number] (SE: fatigue) so was switched to levetiracetam and carbamazepine [id number], now he is not any AEDs since [...] developmental history. No history of myoclonic jerks Since I last saw Mr. Gonzalez on 06/08/20 I started sinemet levodopa 25-100mg TID. Interval History -No Falls -Is taking sinemet 7am, 3pm, 12pm - doesn't know if there any huge improvement. -Right hemiparesthesias: describes as numbness with pins and needles. HE reports that the arm acts up more than the leg and the symptoms can happen at different times -Doesn't enjoy his woodworking and is walking in the [place] but doesn't feel like doing it -Constipation still happening taking miralax, forgot to take the last 3 days -Still has a daily Headache (started 3 months ago that starts around 8am and takes 1-2 ibuprofen's at onset f headache but the headache goes away around 5pm. -Started flomax 2 weeks ago, doesn't know if that it has helped his urinary frequency- thinks that maybe his lightheadedness is worse since starting this medication. ROS: 15 systems reviewed and negative other [...] neurologic disorders. ?? Social history Live in [place], [place]. 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 One drink a week. Non smoker. ?? [...] cholecalciferol, Vitamin D3, 1,000 unit tablet ??? ibuprofen (MOTRIN) 200 mg tablet ??? MAGNESIUM ORAL ??? mecobal/levomefolat Ca/B6 phos ([id number]-B12 ORAL) ??? methylphenidate HCl (RITALIN;METHYLIN) 10 mg tablet ??? OMEGA-3 330 MG-DHA AND EPA 300 MG-ALGAL OIL 600 MG CAPSULE ??? TAMSulosin (FLOMAX) 0.4 mg capsule ??? UNABLE TO FIND No current facility-administered medications for this visit. Social History: Live in [place], [place]. 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 One drink a week. Non smoker. Family History: Family History Problem Relation Age of Onset ??? Stroke Mother ??? Stroke Father ??? Cancer Brother Physical Exam: Vitals: RR: 15 height 5 ' 1'' weight 183 lbs Vitals: 06/21/20 1612 BP: 132/86 Pulse: 94 Resp: 14 SpO2: 98% Weight: 82.6 kg (182 lb) Height: 180.3 cm (70.98) General Exam General: Awake and alert, sitting comfortably in exam room, in no acute distress, valdivia moustache Head, [...] abnormal movements. Motor: normal bulk for age. Hypomania is present. when distracted left lower extremity has a low amplitude3 Hz tremor to larger degree than is present in the left upper extremity. Reduced amplitude and speed in the right upper extremity and right lower extremity for finger tapping/toe tapping as well as hand opening. Right upper extremity with increased tone more notable when patient is distracted withleft upper extremity task. Arm swing is reduced [...] ?? 5 5 Digit Abduction 5 5 Retail Customer Service Representative 5 5 ?? Lower Extremities: (scored out [...] MRI scattered white matter changes. 04/2017 MRI [id number] spinal canal stenosis mild NF narrowing 04/2017 the intracranial internal carotids, MCA are patent as well as the intradural vertebral arteries, basilar artery, LAB SUPPORT SERVICE TECH. I personally independently reviewed the laboratory studies [...] evaluation of parkinson's disease and ongoing headache. He reports minimal if any improvement while on Sinemet and his headache is his main concern today. Given that the headache has not been relieved with any medications consistently and has been present in the location of the C2 nerve distribution and hr may have cervical spinal canal stenosis causing difficulty with gait and the parest hesias over the right side of his body given has markedly abnormal exam today with bilateral clonusin his upper extremities R>L. Follow-up in person shortly after imaging. Plan Highly probable diagnosis of Parkinson disease -try levodopa 25-100mg TID for 1 month -f/u 1 month in person - 30 min apt Right Valdemar body paraesthesias -monitor response to sinemet -MRI Repeat C-spine to rule out cervical spinal canal stenosis Urinary Symptoms -PCP to consult urology I discussed my thoughts as above in detail with my attending Dr. Mejia Electronically signed by TANIA HAQ MD 06/21/20 17:14 PGY2 Neurology Resident Pager # [phone] A copy of this note was sent to the referring provider, Davey Oleary MD and referring primarycare provider Dr. Bernardo Nichols. * Tramaine Mejia MD - 06/21/2020 1600 EST Images from the original note were not included. Attending Attestation: I personally interviewed and examined patient on 06/21/2020. I agree with the history, examination, assessment and plan of care as documented by the resident. Tramaine Mejia MD Attending Neurologist Office documented in this encounter Plan of Treatment Upcoming Encounters Date Type Department Care Team (Late st Contact Info) Description 12/05/2023 13:30 EDT Telemedicine [facility] Neu[facility] S [address] [id number] Aida Zaragoza MD [address] [place] [address] [phone] 01/15/2024 9:30 EDT Procedure visit [facility] [address] [phone] Aida Zaragoza MD [address] [place] [address] [phone] 01/27/2024 8:15 EDT Telemedicine [facility] Neu[facility] S [address] [address] Nickie Zaragoza NP [address] [phone] 04/22/2024 8:30 EST Procedure visit [address] [address] Aida Zaragoza MD [address] [place] [phone] 07/23/2024 8:30 EDT Procedure visit [address] [address] Aida Zaragoza MD [address] [place] [phone] documented as of this encounter Results * MR CERVICAL SPINE WO CONTRAST (07/05/2020 7:15 EDT) Anatomical Region Laterality Modality Spine Magnetic Resonan ce 07/05/2020 9:38 EDT Impressions 07/05/2020 9:38 EDT Multilevel neuroforaminal narrowing due to uncovertebral spurring and facet arthropathy, moderate at C3-4 bilaterally and at C4-5 on the right. No high-grade spinal canal stenosis or cord signal abnormality. Narrative 07/05/2020 9:38 EDT EXAM: MRI CERVICAL SPINE WO CONTRAST HISTORY: Neck pain, abnormal neuro exam; clonus in bilateral biceps, 3 months headache. TECHNIQUE: MRI of the cervical spine without contrast. Structured report code: [email or web address] COMPARISON: MRI cervical spine 04/18/2017. FINDINGS: SURGICAL CHANGES: None. ALIGNMENT: Mild retrolisthesis at C4-5. BONES: No significant vertebral body height loss. No concerning lesions. INTERVERTEBRAL DISCS: Mild multilevel disc height loss throughout the cervical spine. SPINAL CANAL AND SPINAL CORD: No abnormal cord signal intensity. No fluid collections. VISIBLE EXTRASPINAL SOFT TISSUES AND INTRACRANIAL CONTENTS: Unremarkable. EVALUATION BY LEVEL: C1-C2: Normal atlantooccipital and atlantoaxial alignment. No spinal canal stenosis. C2-C3: No spinal canal stenosis. Mild left neuroforaminal narrowing due to uncovertebral spurring and facet arthropathy. C3-C4: No spinal canal stenosis. Moderate bilateral neuroforaminal narrowing due to uncovertebral spurring and facet arthropathy. C4-C5: Minimal circumferential disc bulge and ligamentum flavum thickening without significant spinal canal stenosis. Moderate right and mild left neuroforaminal narrowing due to uncovertebral spurring and facet arthropathy. C5-C6: No significant spinal canal stenosis. Mild bilateral neuroforaminal narrowing due to uncovertebral spurring and facet arthropathy. C6-C7: No significant spinal canal stenosis. Mild left neuroforaminal narrowing due to uncovertebral spurring and facet arthropathy. C7-T1: No significant spinal canal stenosis. Very mild left neuroforaminal narrowing due to uncovertebral spurring and facet arthropathy. Procedure Note Shamir Reed MD - 07/05/2020 EXAM: MRI CERVICAL SPINE WO CONTRAST HISTORY: Neck pain, abnormal neuro exam; clonus in bilateral biceps, 3months headache. TECHNIQUE: MRI of the cervical spine without contrast. Structured reportcode: [email or web address] COMPARISON: MRI cervical spine 04/18/2017. FINDINGS: SURGICAL CHANGES: None. ALIGNMENT: Mild retrolisthesis at C4-5. BONES: No significant vertebral body height loss. No concerning lesions. INTERVERTEBRAL DISCS: Mild multilevel disc height loss throughout the cervical spine. SPINAL CANAL AND SPINAL CORD: No abnormal cord signal intensity. No fluid collections. VISIBLE EXTRASPINAL SOFT TISSUES AND INTRACRANIAL CONTENTS: Unremarkable. EVALUATION BY LEVEL: C1-C2: Normal atlantooccipital and atlantoaxial alignment. No spinal canalstenosis. C2-C3: No spinal canal stenosis. Mild left neuroforaminal narrowing due touncovertebral spurring and facet arthropathy. C3-C4: No spinal canal stenosis. Moderate bilateral neuroforaminalnarrowing due to uncovertebral spurring and facet arthropathy. C4-C5: Minimal circumferential disc bulge and ligamentum flavum thickeningwithout significant spinal canal stenosis. Moderate right and mild leftneuroforaminal narrowing due to uncovertebral spurring and facetarthropathy. C5-C6: No significant spinal canal stenosis. Mild bilateral neuroforaminalnarrowing due to uncovertebral spurring and facet arthropathy. C6-C7: No significant spinal canal stenosis. Mild left neuroforaminalnarrowing due to uncovertebral spurring and facet arthropathy. C7-T1: No significant spinal canal stenosis. Very mild left neuroforaminalnarrowing due to uncovertebral spurring and facet arthropathy. IMPRESSION Multilevel neuroforaminal narrowing due to uncovertebral spurring andfacet arthropathy, moderate at C3-4 bilaterally and at C4-5 on theright. No high-grade spinal canal stenosis or cord signal abnormality. Tramaine Mejia MD IMG MRI ORDERABLES documented in this encounter Visit Diagnoses Diagnosis Intractable headache, unspecified chronicity pattern, unspecified headache type- Primary Intractable headache, unspecified chronicity pattern, unspecified headache type documented in this encounter Historical Medications * This list may reflect changes made after this encounter. Medication Sig Dispensed Refills Start Date End Date TAMSulosin (FLOMAX) 0.4 mg capsule Take 0.4 mg by mouth daily. 07/24/2021 added in this encounter Care Teams Powerhouse Mechanic Helper Relationship Specialty Start Date End Date Bernardo Nichols MD [address] [place] [address] PCP - General 06/10/17 documented as of this encounter
--- OUTSIDE RECORDS SUMMARY | 2023-11-13 12:59 | XMS_ITS | Encounter Summary ---
Author Organization [facility] Address [address] [place] [address] Care Team Providers Care Firefighter Type One Name Role Phone Bernardo Nichols MD Primary Care Provider [phone] Encounter Details Date Type Department Care Team (Late st Contact Info) Description 02/09/2020 Orders Only [facility] Radiology - Main [place] [address] [place], [place] [id number] Spenser Diaz MD [address] [place] [address] [place] [id number] Social History Tobacco Use Types Packs/Day Years [...] Contact Info) Description 12/05/2023 13:30 EDT Telemedicine [facility] Neurology - [place] [address] [place] [address] [id number] Aida Zaragoza MD [address] [place] [address], [address] [place] [phone] 01/15/2024 9:30 EDT Procedure visit [facility] Neurology - S [address] [phone] Aida Zaragoza MD [address] [place] [address] [phone] 01/27/2024 8:15 EDT Telemedicine [facility] S [address] [phone] Nickie Zaragoza NP [address] [phone] 04/22/2024 8:30 EST Procedure visit [address] [id number] Aida Zaragoza MD [address] [place] [address] [phone] 07/23/2024 8:30 EDT Procedure visit [address] [id number] Aida Zaragoza MD [address] [place] [address] [phone] documented as of this encounter Visit Diagnoses Not on filedocumented in this encounter Care Teams Firefighter Type One Relationship Specialty Start Date End Date Bernardo Nichols MD [address] [place] [address] PCP - General 06/10/17 documented as of this encounter
--- OUTSIDE RECORDS SUMMARY | 2023-11-13 12:59 | XMS_ITS | Encounter Summary ---
Author Organization [facility] Address [address] [place] [address] Care Team Providers Care Reclamation Supervisor Name Role Phone Bernardo Nichols MD Primary Care Provider [phone] Reason for Visit * Reason Onset Date Comments Appointment Related 05/23/2020 Encounter Details Date Type Department Care Team (Late st Contact Info) Description 05/23/2020 Telephone [facility] Adult Neurology - [facility] [address] [place], [place] [address] Tania Haq MD [address] [place], [place] [address] Appointment Related Social History Tobacco Use Types [...] * Telephone Encounter - Alicia Castanon - 05/23/2020 1033 EST Power called and cancelled 05/30 in person but kept the 06/21 I person visit - He will call if this will not work with his emt driver * Telephone Encounter - Domitila Bustamante MA - 05/23/2020 0843 EST TC to patient to schedule in person visit with Dr. Haq Scheduled in person visit for Tuesday 05/30 at 3:50 pm, Jim needs to check that he can get a rideand will call back to confirm Jim also had a televideo FUR scheduled for 06/08 and 06/21. Per instructions from Dr. Haq thevisit in June can be kept, will cancel the 06/08 visit documented in this encounter Plan of Treatment Upcoming Encounters Date Type Department Care Team (Late st Contact Info) Description 12/05/2023 13:30 EDT Telemedicine [facility] Neurology S [address] [phone] Aida Zaragoza MD [address] [place] [address] [phone] 01/15/2024 9:30 EDT Procedure visit [facility] Neurology S [address] [phone] Aida Zaragoza MD [address] [place] [address] [phone] 01/27/2024 8:15 EDT Telemedicine [facility] Neurology S [address] [phone] Nickie Zaragoza NP [address] [phone] 04/22/2024 8:30 EST Procedure visit [facility] Neu[facility] [address] [address] Aida Zaragoza MD [address] [place] [address] [phone] 07/23/2024 8:30 EDT Procedure visit [address] [phone] Aida Zaragoza MD [address] [place] [phone] documented as of this encounter Visit Diagnoses Not on filedocumented in this encounter Care Teams Reclamation Supervisor Relationship Specialty Start Date End Date Bernardo Nichols MD [address] [place], [place] [address] PCP - General 06/10/17 documented as of this encounter
--- OUTSIDE RECORDS SUMMARY | 2023-11-13 12:59 | XMS_ITS | Encounter Summary ---
Author Organization [facility] Address [address] [place] [address] Care Team Providers Care Grader Marker Name Role Phone Bernardo Nichols MD Primary Care Provider [phone] Encounter Details Date Type Department Care Team (Latest Contact Info) Description 06/28/2020 Travel Social History Tobacco Use Types Packs/Day [...] 19:21 EDT documented as of this encounter Plan of Treatment Upcoming Encounters Date Type Department Care Team (Late st Contact Info) Description 12/05/2023 13:30 EDT Telemedicine [facility] Neurology - [place] [address] [place] [address] [phone] Aida Zaragoza MD [address] [phone] 01/15/2024 9:30 EDT Procedure visit [address] [address] Aida Zaragoza MD [address] [place] [address] [phone] 01/27/2024 8:15 EDT Telemedicine [address] [phone] Nickie Zaragoza NP [address] [phone] 04/22/2024 8:30 EST Procedure visit [address] [address] Aida Zaragoza MD [address] [place] [address] [phone] 07/23/2024 8:30 EDT Procedure visit [address] 172821 Aida Zaragoza MD [address] [place] [address] [phone] documented as of this encounter Visit Diagnoses Not on filedocumented in this encounter Care Teams Grader Marker Relationship Specialty Start Date End Date Bernardo Nichols MD [address] [place] [address] PCP - General 06/10/17 documented as of this encounter
--- OUTSIDE RECORDS SUMMARY | 2023-11-13 12:59 | XMS_ITS | Encounter Summary ---
Author Organization [facility] Address [address] [place] [address] Care Team Providers Care Wagon Drill Operator Name Role Phone Bernardo Nichols MD Primary Care Provider [phone] Reason for Referral * Radiology Services (Routine) - Closed Specialty Diagnoses / Procedures Referred By Contac t Referred To Contact Radiology Diagnoses Intractable headache, unspecified chronicity pattern, unspecified headache type Procedures MR CERVICAL SPINE WO CONTRAST Tramaine Mejia MD [address] [phone] Referral ID Status Reason Start Date Expiration Date Visits Re quested Visits Authorized [id number] Closed 06/21/2020 1 1 Reason for Visit * Radiology Services (Routine) - Closed Specialty Diagnoses / Procedures Referred By Contac t Referred To Contact Radiology Diagnoses Intractable headache, unspecified chronicity pattern, unspecified headache type Procedures MR CERVICAL SPINE WO CONTRAST Tramaine Mejia MD [address] [place] [phone] Referral ID Status Reason Start Date Expiration Date Visits Re quested Visits Authorized [id number] Closed 06/21/2020 1 1 Encounter Details Date Type Department Care Team (Latest Contact Info) Description 07/05/2020 5:54 EDT - 07/05/2020 23:59 EDT [facility] - Main [place] [address] [place] [address] Intractable headache, unspecified chronicity pattern, unspecified headache type Discharge Disposition: Home or Self Care Social [...] 5:50 EDT documented as of this encounter Medications at Time of Discharge Medication Sig Dispensed Refills Start Date End Date cholecalciferol, Vitamin D3, 1,000 unit tablet Take 5 Tablets by mouth daily. MAGNESIUM ORAL Take 1,000 mg by mouth. 2 500 MG TABS OMEGA-3 330 MG-DHA AND EPA 300 MG-ALGAL OIL 600 MG CAPSULE 3,200 mg daily. UNABLE TO FIND Med Name: 'Restless legs' PRN for restless legs gabapentin (NEURONTIN) 100 mg capsule Take 1 Cap by mouth 3 times daily. 90 Cap 3 06/21/2020 11/08/2021 ibuprofen (MOTRIN) 200 mg tablet Take 200 mg by mouth every 6 hours as needed. 04/25/2021 mecobal/levomefolat Ca/B6 phos ([id number] ORAL) Take 2,000 mg by mouth daily. [...] Contact Info) Description 12/05/2023 13:30 EDT Telemedicine [facility] Neurology S [address] [phone] Aida Zaragoza MD [address] [place] [address] [phone] 01/15/2024 9:30 EDT Procedure visit [address] 086751 Aida Zaragoza MD [address] [place] [address] [phone] 01/27/2024 8:15 EDT Telemedicine [address] [phone] Nickie Zaragoza NP [address] [place] [address] [phone] 04/22/2024 8:30 EST Procedure visit [address] [phone] Aida Zaragoza MD [address] [place] [address] [phone] 07/23/2024 8:30 EDT Procedure visit [address] 580851 Aida Zaragoza MD [address] [place] [address] [phone] documented as of this encounter Procedures Procedure Name Priority Date/Time Associated Diagnosis Comments MR CERVICAL SPINE WO CONTAST Routine 07/05/2020 7:15 EDT Intractable headache, unspecified chronicity pattern, unspecified headache type documented in this encounter Results * MR CERVICAL SPINE [...] unspecified headache type documented in this encounter Care Teams Wagon Drill Operator Relationship Specialty Start Date End Date Bernardo Nichols MD [address] [place] [address] PCP - General 06/10/17 documented as of this encounter
--- OUTSIDE RECORDS SUMMARY | 2023-11-13 12:59 | XMS_ITS | Encounter Summary ---
Author Organization [facility] Address [address] [place] [address] Care Team Providers Care Row Boss Name Role Phone Bernardo Nichols MD Primary Care Provider [phone] Reason for Referral * Office Procedure (3 - 10 Business Days) - Receiving Office to Obtain Authorization Specialty Diagnoses / Procedures Referred By Contac t Referred To Contact Neurology Diagnoses Paresthesias in right hand Procedures EEG Teo Johnson MD 2 [facility] Office Building, [address] [place] [phone] [facility] [address] [place] [id number] Referral ID Status Reason Start Date Expiration Date Visits Requested Visits Authorized [id number] Receiving Office to Obtain Authorization 04/18/2020 1 1 Reason for Visit * Office Procedure (3 - 10 Business Days) - Receiving Office to Obtain Authorization Specialty Diagnoses / Procedures Referred By Contac t Referred To Contact Neurology Diagnoses Paresthesias in right hand Procedures Teo Tsang MD 2 [facility] Office Building, [address] [place] [address] [facility] [address] [place] [id number] Referral ID Status Reason Start Date Expiration Date Visits Requested Visits Authorized [id number] Receiving Office to Obtain Authorization 04/18/2020 1 1 Encounter Details Date Type Department Care Team (Latest Contact Info) Description 05/03/2020 11:26 EST - 05/03/2020 23:59 EST Hospital Encounter [facility] Neurophysiology - [address] [address] Paresthesias in right hand; Seizure-like activity ([facility]) Discharge Disposition: Home or Self Care Social [...] Name: 'Restless legs' PRN for restless legs methylphenidate HCl (RITALIN;METHYLIN) 10 mg tablet TAKE 1 TABLET BY MOUTH TWICE DAILY MORNING AND NOON 04/07/2020 07/24/2021 documented as of this encounter Discharge Disposition Disposition Code Departure Means Destination Home or Self Care documented in this encounter Procedure Notes * Elizabeth Alvarado MD - 05/03/2020 1200 ESTAssociated Order(s): EEG Images from the original note were not included. [facility] Name: Jim Gonzalez Clinical Neurophysiology Laboratory [address] : 1945 [place], [place] Date: 05/03/2020 Electroencephalogram Report Referring Physician: Teo Johnson MD Study Number: [id number] Clinical Indication: A 74 y.o. man referred for standard EEG to evaluate episodes of right hemiparesthesia's. Medications: Current Outpatient Medications Medication ??? cholecalciferol, Vitamin D3, 1,000 unit tablet ??? Magnesium 250 mg tablet ??? methylphenidate HCl (RITALIN;METHYLIN) 10 mg tablet ??? OMEGA-3 330 MG-DHA AND EPA 300 MG-ALGAL OIL 600 MG CAPSULE ??? UNABLE TO FIND No current facility-administered medications for this encounter. Technical Description: Standard EEG: An in-laboratory digital EEG is performed utilizing silver-silver chloride electrodesplaced according to the International 10-20 system of electrode placement. CPZ serves as the recording reference electrode. The following additional electrodes are also placed: ECG electrodes , anterior temporal electrodes The study begins at 1159 until 1238 with a total study duration of 39 minutes. During this study the following states the followingwere recorded: Wake, drowsiness Subject factors: Cooperative The patient and/or caregivers report:9 hours of sleep night before study; Estimated average 9 hoursof sleep Previous EEG Study? Yes Findings: The waking background cerebral activity is organized, continuous and reactive; represented by low-medium amplitude alpha frequencies as well as low voltage faster frequencies. During wakefulness, there is occasional intermittent, bilateral independent polymorphic theta. During drowsiness and light sleep there are 0.5-4 s runs of low to moderate amplitude delta activity independently over either temporal region. Hyperventilation is not performed due to COVID precautions. Photic stimulation with 10 second trains of [...] Davey Oleary M.D. Neurophysiology Fellow Pager # [phone] I personally reviewed the study and the fellow's interpretation in detail, edited the above report and agree with the findings documented. ELIZABETH ALVARADO MD Diplomate, [place] [employer] - Neurology with added qualifications in clinical neurophysiology. 14:26 05/04/2020 documented in this encounter Plan of Treatment Upcoming Encounters Date Type Department Care Team (Late st Contact Info) Description 12/05/2023 13:30 EDT Telemedicine [facility] Neurology [address] [id number] Aida Zaragoza MD [address] [place] [phone] 01/15/2024 9:30 EDT Procedure visit [address] 227201 Aida Zaragoza MD [address] [place] [address] [phone] 01/27/2024 8:15 EDT Telemedicine [address] [id number] Nickie Zaragoza NP [address] [place] [phone] 04/22/2024 8:30 EST Procedure visit [address] 511551 Aida Zaragoza MD [address] [place] [phone] 07/23/2024 8:30 EDT Procedure visit [facility] Neurology - [address] [place] [address] [place], [place] [address] Aida Zaragoza MD [address] [place] [address], [address] [place] [phone] documented as of this encounter Procedures Procedure Name Priority Date/Time Associated Diagnosis Comments EEG Routine 05/03/2020 12:00 EST Paresthesias in right hand documented in this encounter Results * EEG (05/03/2020 12:00 EST) Narrative [facility] POINT OF CARE - 05/03/2020 12:00 EST Elizabeth Alvarado MD ? 05/04/2020 14:26 [facility] ??Name: Jim Calderon Carlos Clinical Neurophysiology Laboratory ?? [address] [place] [address] ? : 1945 [place], [place] ?Date: 05/03/2020 Electroencephalogram Report Referring Physician: [...] Davey Oleary M.D. Neurophysiology Fellow Pager # [phone] I personally reviewed the study and the fellow's interpretation in detail, edited the above report and agree with the findings documented. ELIZABETH ALVARADO MD Diplomate, [place] [employer] and Neu[employer] - Neurology with added qualifications in clinical neurophysiology. 14:26 05/04/2020 Teo Johnson MD NEUROLOGY ORDERABLES [facility] POINT OF CARE documented in this encounter Visit Diagnoses Diagnosis Paresthesias in right hand Disturbance of skin sensation Seizure-like activity ([facility]) Other convulsions documented in this encounter Care Teams Row Boss Relationship Specialty Start Date End Date Bernardo Nichols MD [address] [place] [address] PCP - General 06/10/17 documented as of this encounter
--- OUTSIDE RECORDS SUMMARY | 2023-11-13 12:59 | XMS_ITS | Encounter Summary ---
Author Organization [facility] Address [address] [place] [address] Care Team Providers Care Molding Sander Name Role Phone Bernardo Nichols MD Primary Care Provider [phone] Reason for Visit * Reason Onset Date Comments Appointment Related 06/24/2020 Encounter Details Date Type Department Care Team (Late st Contact Info) Description 06/24/2020 Telephone [facility] Adult Neurology - [facility] [address] [place], [place] [id number] Tania Haq MD [address] [place], [place] [address] Appointment Related Social History Tobacco Use Types [...] Telephone Encounter - Domitila Bustamante MA - 06/24/2020 1621 EST Sent lab orders to [facility] [place] [facility] * Telephone Encounter - Peter Rueda - 06/24/2020 1505 EST Jim calling regarding a blood work order - please send to [facility] [place] [facility] in [place]. documented in this encounter Plan of Treatment Upcoming Encounters Date Type Department Care Team (Late st Contact Info) Description 12/05/2023 13:30 EDT Telemedicine [facility] Neurology [address] [id number] Aida Zaragoza MD [address] [place] [address] [phone] 01/15/2024 9:30 EDT Procedure visit [address] 578261 Aida Zaragoza MD [address] [place] [address] [phone] 01/27/2024 8:15 EDT Telemedicine [facility] Neurology [address] [phone] Nickie Zaragoza NP [address] [place] [address] [phone] 04/22/2024 8:30 EST Procedure visit [address] [phone] Aida Zaragoza MD [address] [place] [address] [address] [place] [phone] 07/23/2024 8:30 EDT Procedure visit [facility] Neurology - [address] [phone] Aida Zaragoza MD [address] [place] [address] 2 [place] [phone] documented as of this encounter Visit Diagnoses Not on filedocumented in this encounter Care Teams Molding Sander Relationship Specialty Start Date End Date Bernardo Nichols MD [address] [place] [address] PCP - General 06/10/17 documented as of this encounter
--- OUTSIDE RECORDS SUMMARY | 2023-11-13 12:59 | XMS_ITS | Encounter Summary ---
Author Organization [facility] Address [address] [place] [address] Care Team Providers Care Cellular Equipment Repairer Name Role Phone Bernardo Nichols MD Primary Care Provider [phone] Reason for Visit * Reason Comments Follow-up Encounter Details Date Type Department Care Team (Late st Contact Info) Description 05/10/2020 15:00 EST Office Visit [facility] Adult Neurology - [facility] [address] [place], [place] [address] Tania Haq MD [address] [place], [place] [phone] Paresthesias in right hand (Primary Dx); Tremor; Parkinsonian features; Intractable headache, unspecified chronicity pattern, unspecified headache [...] 15:00 EST documented as of this encounter Last Filed Vital Signs Vital Sign Reading Time Taken Comments Blood Pressure - - Pulse - - Temperature - - Respiratory Rate - - Oxygen Saturation - - Inhaled Oxygen Concentration - - Weight 82.6 kg (182 lb) 05/10/2020 1508 EST Height 180.3 cm (5' 11) 05/10/2020 1508 EST Body Mass Index 25.38 05/10/2020 1508 EST documented in this encounter Ordered Prescriptions Prescription Sig Dispensed Refills Start Date End Da te carbidopa-levodopa (SINEMET) 25-100 mg per tablet Take 1 Tab by mouth 3 times daily for 30 days. 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 The [...] phenobarb, then was put on phenobarb monotherapy (SE: fatigue) so was switched to levetiracetam and carbamazepine , now he is not any AEDs since [...] developmental history. No history of myoclonic jerks Interval History He reports the his nervous tic in left leg started a couple weeks ago. He can stop the movements and he does not think this is a tremor. He still reports feeling slowed movements and it takes longer to button his shirt. No falls. Has regular constipation that started a couple years ago. He has his sense of smell but he does worm picker on odd smells. No acting out of dreams. His left eye starting dropping 6 months ago. Denies symptoms of depression guilt doesn't enjoy his woodshop as much as before. Reports that he has had a headache in his occiput for the last 2 months. He reporst it doesn't wake him up, and it goes away towards dinner time, does not get worse when standing up. ROS: 15 systems reviewed and negative other [...] neurologic disorders. ?? Social history Live in [place], [place]. 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 One drink a week. Non smoker. [...] for this visit. Social History: Live in [place], [place]. 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 One drink a week. Non smoker. [...] ?? 5 5 Digit Abduction 5 5 Head Of English 5 5 ?? Lower Extremities: (scored out of 5) ?? Right Left Hip Flexion ?? 5 5 Hip Extension 5 5 Knee Flexion 5 5 Knee Extension 5 5 Dorsiflexion 5 5 Plantar Flexion ? 5 5 ?? Deep tendon reflexes: (scored out of 4) ?? Right Left Biceps (C5-6) 2 2 BR (C5-6) 2 2 Triceps (C7-8) - - Patellar (L3-4) 3 3 Achilles (S1-2) 1 1 Babinski downright bilaterally Hoffmans' negatve ?? Sensory: light touch:??intact in all extremities Coordination: Finger nose Finger: intact, no dysmetria?? Heel to Reilly:??intact, no dysmetria ?? Gait: can walk unassisted, can stand up from sitting without using his hands, Ancillary Studies: I personally independently reviewed the imaging studies: 04/19/2020 MRI scattered white matter changes. 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 I personally independently reviewed the laboratory studies [...] who presents for evaluation of parkinson's disease. Today I was able to personally examine Mr. Gonzalez and he does have the four cardinal features of Parkinson disease (PD): asymmetric resting tremor in the left lower extremity, increased tone and bradykinesia in the right upper extremity as well as postural instability. In addition he presents with hyp omimia (secondary motor symptoms), reports 2 years of constipation (pre-motor symptoms), apathy (non-motor symptom) for his woodworking hobby and in PCP notes I read that he has orthostatic hypotension (non-motor symptom). He currently fulfills the diagnostic criteria for PD and does not meet any exclusionary criteria. Mr. Gonzalez and I decide that trailing Sinemet would be the next best step for him. Bradykinesia, rigidity, tremor should respond to sinemet, but sinemet may take several weeks to work and sometimes tremor is unrelieved by medication. Postural instability, which Mr. Gonzalez exhibits, is a symptom not typically relieved with sinemet. Also, postural instability usually presents 10 years after the diagnosis of PD. It is interesting that his tremor is in his left lower extremity as it would be expected to be on the concordant side of his increased tone. His left lower extremity may represent essential tremor. PD is known to cause many non-motor symptoms including sensory abnormalities such as pain and numbness so will monitor to see if his intermittent right sided paraesthesias re spond to sinemet. Since I'm meeting Mr. Gonzalez in person for the first time, follow-up in 1 month will be necessary in person to assess the effect of Sinemet. If he is not responding to sinemet will consider increasing dose and alternative diagnosis which may present with overlapping symptoms of PD such as: progressive supranuclear palsy (although no supranuclear gaze palsy currently present) vs cortical basal degeneration (no limb dystonia currently) vs multisystem atrophy (cerebellar deficits are not present but does have a degree of autonomic symptoms such as orthostasis, urinary frequency, constipation). Plan Highly probable diagnosis of Parkinson disease -try levodopa 25-100mg TID for 1 month -f/u 1 month in person - 30 min apt Right Valdemar body paraesthesias + occipital headache -monitor response to sinemet -Will consider Repeat C-spine (had right sided NF stenosis) vs repeat EMG? I discussed my thoughts as above in detail with my attending Dr. Perry Electronically signed by TANIA HAQ MD 05/09/20 20:42 PGY2 Neurology Resident Pager # [phone] A copy of this note was sent to the referring provider, Davey Oleary MD and referring primarycare provider Dr. Bernardo Nichols. * Laurie Gayle MD - 05/10/2020 1500 EST Attestation: I saw the patient and I discussed the case with the resident. I agree with the findings and plan of care documented in the resident's note. 74y/o man who comes to the clinic for evaluation of parkinson's disease. Exam is remarkable for resting tremor on the left side as well as increased tone L>R with augmentation. Bradykinesia and postural instability. Pull test 1. We will recommend a trial of sinemet 25/100mg TID. f/u appointment in 4 weeks. Laurie Pope MD 05/16/2020 11:52 documented in this encounter Plan of Treatment Upcoming Encounters Date Type Department Care Team (Late st Contact Info) Description 12/05/2023 13:30 EDT Telemedicine [facility] Neurology - [address] [id number] Aida Zaragoza MD [address] [place] [address] [address] [place] [phone] 01/15/2024 9:30 EDT Procedure visit [facility] Neurology - S [address] [phone] Aida Zaragoza MD [address] [place] [address] [phone] 01/27/2024 8:15 EDT Telemedicine [address] [phone] Nickie Zaragoza NP [address] [place] [address] [phone] 04/22/2024 8:30 EST Procedure visit [address] [phone] Aida Zaragoza MD [address] [place] [phone] 07/23/2024 8:30 EDT Procedure visit [address] [id number] Aida Zaragoza MD [address] [place] [address] [phone] documented as of this encounter Visit Diagnoses Diagnosis Paresthesias in right hand- Primary Disturbance of skin sensation Tremor Abnormal involuntary movements Parkinsonian features Abnormal involuntary movements Intractable headache, unspecified chronicity pattern, unspecified headache type documented in this encounter Historical Medications * This list may reflect changes made after this encounter. Medication Sig Dispensed Refills Start Date End Date ibuprofen (MOTRIN) 200 mg tablet Take 200 mg by mouth every 6 hours as needed. 04/25/2021 mecobal/levomefolat Ca/B6 phos (Q-[id number] ORAL) Take 2,000 mg by mouth daily. 07/24/2021 added in this encounter Care Teams Cellular Equipment Repairer Relationship Specialty Start Date End Date Bernardo Nichols MD [address] [place] [phone] PCP - General 06/10/17 documented as of this encounter
--- OUTSIDE RECORDS SUMMARY | 2023-11-13 12:59 | XMS_ITS | Encounter Summary ---
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 (FORMERLY [facility]-CMS) Procedures EEG Chris Ram MD [address] [place] [address] [facility] [address] [place] [id number] Referral ID Status Reason Start Date Expiration Date Visits Re quested Visits Authorized [id number] Closed 1 1 Encounter Details Date Type Department Care Team (Late st Contact Info) Description 06/11/2017 11:34 EST - 06/11/2017 23:59 EST Hospital Encounter [facility] Neurophysiology - [facility] [address] [place] [address] Unknown, Provider, Peter Sepulveda MD PhD [address] [facility]. [address] [place] [address] Seizure (CMS-HCC) (HCC-CMS) Discharge Disposition: Auto Discharge Social History Tobacco Use Types Packs/Day Years Used Date Smoking Tobacco: Never Assessed Sex and Gender Information Value Date Recorded Sex Assigned at Not on file Gender Identity Male 02/04/2020 16:10 EDT Sexual Orientation Not on file documented as of this encounter Discharge Diagnoses Diagnosis R56.9 Unspecified convulsions-R56.9[ICD-10-CM] documented in this encounter Discharge Disposition Disposition Code Departure Means Destination Auto Discharge Home documented in this encounter Procedure Notes * Alexis Burrows MD - 06/11/2017 1309 ESTProcedure(s): AMBULATORY EEG- TRANSCRIBED ORDER Pre-Procedure Diagnose(s): Seizures (FORMERLY [facility]) Post-Procedure Diagnose(s): Seizures (FORMERLY [facility]-CMS) 24 Hour Ambulatory EEG Clinical Neurophysiology Laboratory [facility] [place] [facility] History: This is a 71 year old man referred for a 24 hour ambulatory EEG for history of epilepsy and spells of slurred speech and right hemibody numbness concerning for seizures. Procedure: A 21 channel ambulatory electroencephalogram/EKG was initiated in the clinical neurophysiology laboratory at the [facility] [place] [facility] and the patient then had the ambulatory recording as an outpatient. The 10/20 system of electrode placement was used and both bipolar and referential electrode montages were monitored. The patient was recorded during sleep and awake and hyperventilation and photic stimulation. The recording was from 12:41 on 06/11/2017 to 06/12/2017 at 11:37. Description: During the awake state with the eyes lightly closed the background consisted of 9 Hz, 50-60 microvolt alpha which attenuated appropriately with eye opening. Low amplitude beta activity was seen in the anterior head region. There was a normal anterior-posterior voltage gradient. With eye opening the background consisted of a low to moderate voltage mixture of beta and alpha range frequencies. Intermittent low-amplitude left frontotemporal slowing was seen in the awake and drowsy state. No asymmetries of background rhythm were seen. With drowsiness there was waxing and waning of the background rhythms with eventual replacement by a mixture of beta, theta and alpha. Stage II of sleep was characterized by vertex sharp waves and symmetrical sleep spindles. Slow wave sl;eep consisted primarily of diffuse delta and theta activity. REM sleep with rapid eye movements and a moderate mixture of theta and alpha activity was noted. Theleft frontotemporal slowing seen during waking and drowsiness is not apparent in deeper stages of sleep. No epileptiform discharges were present. Push button events at 4:20 pm, 9:10 [...] events were not associated with epileptiform activity. Alexis Burrows MD Professor of Neurological Sciences [facility] [place] [facility] * Peter Sepulveda MD PhD - 06/11/2017 1253 ESTProcedure(s): EEG- TRANSCRIBED ORDER [facility] [place] [facility] Name: Jim Gonzalez Clinical Neurophysiology Laboratory [address] [facility] : 1945 [place], [place] Date: 06/11/2017 Electroencephalogram Report Referring Physician: Chris Ram MD Study Number: [id number] Clinical Indication: This is a 71 year old man referred for a 24 hour ambulatory EEG for history ofepilepsy and spells of slurred speech and right hemibody numbness concerning for seizures. This is a baseline study report. Medications: Levetiracetama, oxcarbazepine and possible others. Technical Description: Standard EEG: An in-laboratory digital EEG is performed utilizing silver-silver chloride electrodesplaced according to the International 10-20 system of electrode placement. CPZ serves as the recording reference electrode. The following additional electrodes are also placed: ECG electrodes , anterior temporal electrodes The study begins at 1228 until 1254 with a total study duration of 26 minutes. During this study the following states the followingwere recorded: Wake, Drowsy, Photic stimulation, Stage I Sleep Subject factors: Cooperative The patient and/or caregivers report:10 hours of sleep night before study; Estimated average 10 hours of sleep Previous EEG Study? Yes (several years ago) Findings: The background waking cerebral activity is characterized by diffuse low-moderate polymorphic alpha and low voltage faster frequencies. There is intermittent asymmetric slowing left frontal-temporal moderate amplitude theta-delta frequencies. Posterior dominate rhythm is 9 Hz and reactive to eye opening. The patient became drowsy. No stage N2 sleep was attained. Hyperventilation is not performed due to patient's age. Photic stimulation is performed utilizing 10 second trains of stimulation by 10 second intervals without stimulation at flash frequencies between 1 to 20 Hz and then downward from 60 to 25 Hz. Single lead EKG shows a regular rhythm. Impression: This is an abnormal EEG due to: (1) Mild, intermittent left frontal-temporal slowing. Clinical Correlation: No seizures nor interictal epileptiform discharges were present to support the diagnosis of epilepsy. Focal left sided cerebral dysfunction is non-specific and can be seen in multiple etiologies including mass lesion, ischemia, hematoma, post-ictal, migraine, infection, neurode generative condition among others. Patient will continue on a 24 hour AEEG which will be reported separately. LANDON CASTILLO IV, MD [facility] [place] [facility] Clinical Neurophysiology Fellow 06/11/2017 15:13 I have reviewed the study and made corrections as needed. Peter Sepulveda MD, PhD ABPN Certified Neurology ABCN Certified Clinical Neurophysiology documented in this encounter Plan of Treatment Upcoming Encounters Date Type Department Care Team (Late st Contact Info) Description 12/05/2023 13:30 EDT Telemedicine [facility] Neurology [address] [address] Aida Zaragoza MD [address] [place] [phone] 01/15/2024 9:30 EDT Procedure visit [facility] Neurology [address] [address] Aida Zaragoza MD [address] [place] [phone] 01/27/2024 8:15 EDT Telemedicine [facility] Neurology [address] [address] Nickie Zaragoza NP [address] [phone] 04/22/2024 8:30 EST Procedure visit [facility] Neurology S [address] [phone] Aida Zaragoza MD [address] [phone] 07/23/2024 8:30 EDT Procedure visit [address] [address] Aida Zaragoza MD [address] [place] [phone] documented as of this encounter Visit Diagnoses Diagnosis Seizure ([facility]ERLY [facility]) Other convulsions documented in this encounter Care Teams Eye Care Professional Relationship Specialty Start Date End Date Bernardo Nichols MD [address] [place] [address] PCP - General 06/10/17 documented as of this encounter
--- OUTSIDE RECORDS SUMMARY | 2023-11-13 12:59 | XMS_ITS | Encounter Summary ---
Author Organization [facility] Address [address] [place] [address] Care Team Providers Care Access Services Assistant Name Role Phone Bernardo Nichols MD Primary Care Provider [phone] Reason for Visit * Reason Onset Date Comments Appointment Related 05/03/2020 Encounter Details Date Type Department Care Team ([facility] st Contact Info) Description 05/03/2020 Telephone [facility] Neurology - S [address] [phone] Unknown, Provider, Appointment Related Social History Tobacco Use Types [...] * Telephone Encounter - Ani Arechiga - 05/03/2020 0847 EST Pt called in to confirm EEG geri today. documented in this encounter Plan of Treatment Upcoming Encounters Date Type Department Care Team (Late st Contact Info) Description 12/05/2023 13:30 EDT Telemedicine [facility] Neurology S [address] [phone] Aida Zaragoza MD [address] [place] [phone] 01/15/2024 9:30 EDT Procedure visit [address] [phone] Aida Zaragoza MD [address] [place] [address] [phone] 01/27/2024 8:15 EDT Telemedicine [address] [address] Nickie Zaragoza NP [address] [place] [address] [phone] 04/22/2024 8:30 EST Procedure visit [address] [address] Aida Zaragoza MD [address] [place] [address] [phone] 07/23/2024 8:30 EDT Procedure visit [address] [address] Aida Zaragoza MD 1 [facility], [address] [place] [phone] documented as of this encounter Visit Diagnoses Not on filedocumented in this encounter Care Teams Access Services Assistant Relationship Specialty Start Date End Date Bernardo Nichols MD [address] [place] [address] PCP - General 06/10/17 documented as of this encounter
--- OUTSIDE RECORDS SUMMARY | 2023-11-13 12:59 | XMS_ITS | Encounter Summary ---
Author Organization [facility] Address [address] [place] [address] Care Team Providers Care Game Author Name Role Phone Bernardo Nichols MD Primary Care Provider [phone] Reason for Visit * Reason Onset Date Comments Appointment Related 02/10/2020 Encounter Details Date Type Department Care Team (Late st Contact Info) Description 02/10/2020 Telephone [facility] Adult Neurology - [place] [address] [place], [place] [address] Neurology 2c, Resident Appointment Related Social History Tobacco Use Types [...] encounter Miscellaneous Notes * Telephone Encounter - Dorinda Todd - 02/10/2020 1127 EDT Patient returned call and scheduled 02/14 @ 1:20pm in person NPV with Eun. Reviewed directions and visitor policy * Telephone Encounter - Domitila Bustamante MA - 02/10/2020 1058 EDT [facility] with Bill offering in person appointment per referral from Dr. Oleary. Per Dr. Oleary, patient should be seen in person sooner rather than later. Dr. Haq has an in person opening available on 02/14 on 1:20 pm, otherwise other in person appointments are booking out to approximately April. Please schedule pt for this appt when he calls back and explain COVID-19 and visitor policies. documented in this encounter Plan of Treatment Upcoming Encounters Date Type Department Care Team (Late st Contact Info) Description 12/05/2023 13:30 EDT Telemedicine [facility] Neurology S [address] [phone] Aida Zaragoza MD [address] [place] [address] [phone] 01/15/2024 9:30 EDT Procedure visit [facility] Neurology [address] 829051 Aida Zaragoza MD [address] [place] [phone] 01/27/2024 8:15 EDT Telemedicine [address] [phone] Nickie Zaragoza NP [address] [place] [address] [phone] 04/22/2024 8:30 EST Procedure visit [address] [phone] Aida Zaragoza MD [address] [place] [address] [phone] 07/23/2024 8:30 EDT Procedure visit [facility] Neurology - S [address] [address] Aida Zaragoza MD 1 [facility], [address] [place] [phone] documented as of this encounter Visit Diagnoses Not on filedocumented in this encounter Care Teams Game Author Relationship Specialty Start Date End Date Bernardo Nichols MD [address] [place] [address] PCP - General 06/10/17 documented as of this encounter
== END 2023-11-13 12:50 | disposition home or self-care (01) ==
LOC: NCHCN 12:49
PROVIDERS: PCP Internal Medicine; Visit Provider Nurse Practitioner Family
DX: R35.1 Nocturia (principal)
CPT/HCPCS: 87086

== ENCOUNTER 2024-04-10 14:59 | Outpatient (REF) | payer MEDICARE, BC, SELFPAY ==
[2024-04-10 19:25] LABS: Abs Immature Grans 0.01 10^3/uL (0.0-0.06); Absolute Basophil Count 0.03 10^3/uL (0.0-0.2); Absolute Eosinophil Count 0.04 10^3/uL (0.0-0.7); Absolute Lymphocyte Count 1.56 10^3/uL (1.2-3.4); Absolute Monocyte Count 0.55 10^3/uL (0.1-0.8); Absolute Neutrophil Count 5.81 10^3/uL (1.2-6.7); Basophils % 0.4 %; Eosinophils % 0.5 %; HCT 43.8 % (40.0-50.0); HGB 14.9 g/dL (13.5-17.5); Immature Grans % 0.1 %; Lymphocytes % 19.5 %; MCH 29.9 pg (27.0-33.0); MCV 88 fL (80-95); MPV 9.3 fL (8.0-11.0); Monocytes % 6.9 %; Neutrophils % 72.6 %; Platelet Count 269 10^3/uL (130-400); RBC 4.98 10^6/uL (4.36-5.78); RDW 12.3 % (11.8-14.1); RDW-SD 39.4 fL
[2024-04-10 19:39] LABS: ALT 9 U/L (16-63); AST 17 U/L (15-37); Albumin 3.8 g/dL (3.4-5.0); Alkaline Phosphatase 89 U/L (46-116); Anion Gap 5.2 mmol/L (3-11); BUN 26 mg/dL (7-18); CO2 32.8 mmol/L (21.0-32.0); CREATININE 1.5 mg/dL (0.70-1.30); Calcium 9.6 mg/dL (8.5-10.1); Chloride 105 mmol/L (98-107); Estimated GFR 47.06 (mL/min/1.73m2); Glucose 106 mg/dL (74-106); Sodium 143 mmol/L (136-145); TSH (W/Ref FT4) 1.81 uIU/mL (0.36-3.74); Total Protein 7.2 g/dL (6.4-8.2)
== END 2024-04-10 15:00 | disposition home or self-care (01) ==
LOC: NCHCN 14:59
PROVIDERS: PCP Internal Medicine; Visit Provider Physician Assistant
DX: R42 Dizziness and giddiness (principal)
CPT/HCPCS: 80053; 84443; 85025

== ENCOUNTER 2024-06-22 15:36 | Outpatient (REF) | payer MEDICARE, BC, SELFPAY ==
[2024-06-22 20:18] LABS: TSH 0.89 uIU/mL (0.36-3.74); Vitamin B12 753 pg/mL (193-986); Vitamin D 25 Total 48 ng/mL (30-100)
[2024-06-26 09:23] LABS: Methylmalonic Acid 0.16 nmol/mL (<=0.40)
== END 2024-06-22 15:37 | disposition home or self-care (01) ==
LOC: NCHCN 15:36
PROVIDERS: PCP Internal Medicine; Visit Provider Internal Medicine
DX: R27.0 Ataxia, unspecified (principal)
CPT/HCPCS: 80186; 82306; 82607; 84443